=== PATIENT | male | born 1935 | race African-American/Black ===

== ENCOUNTER 2017-01-12 20:17 | Inpatient (IN) | payer OTHER ==
[2017-01-13 01:11] LABS: MCH 24.6 pg (25.7-33.7); MCHC 32.9 g/dl (32.0-35.9); MEAN CELL VOLUME 74.7 fl (80-96); PLATELET COUNT 193 K/MM3 (134-434); RDW 16.5 % (11.9-15.9); WHITE BLOOD COUNT 12.2 K/mm3 (4.0-10.0)
[2017-01-13 02:01] LABS: ALBUMIN 3.3 g/dl (3.4-5.0); BILIRUBIN,TOTAL 0.5 mg/dL (0.2-1.0); CALCIUM 8.6 mg/dL (8.5-10.1); CREATININE 1.2 mg/dL (0.7-1.3); TOT PROT 6.7 g/dl (6.4-8.2)
--- NOTE | 2017-01-13 02:40 | PDOC ---
History of Present Illness - General Chief Complaint: Wound Infection Stated Complaint: FEVER 102/ DIABETIC Time Seen by Provider: 01/12/17 22:05 History Source: Patient, Family Exam Limitations: No Limitations - History of Present Illness Initial Comments: 01/13/17 02:40 81yo Male patient w/ PmHx: HTN, Diabetes presents to ED c/o fever, and infection of left foot. Family states patient experienced fever 103 (rectally) at home, called Darron Cantor and was instructed to go to ED for admission. Patient was recently prescribed Augmentin on Friday, but patient condition slowly deteriorating. Patient denies n/v/d, CP, Abd pain, back pain, rash or any other complaints. Spoke with Dr. Presley who requested patient be admitted to med surg. Timing/Duration: reports: week Severity: Yes: moderate Location: reports: extremities, feet Respiratory Risk Factors: denies: no cause identified, exposure to illness, exposure to allergen, foods, insect bite, insect sting, medications, pollen, soaps, other Modifying Factors: worse with: antihistamine, calamine lotion, prednisone, scratching, topical steriods, other Associated Symptoms: denies: denies symptoms, blisters, change in skin texture, edema, fever, flushing, headache, hives, jaundice, malaise, nasal congestion, numbness, pallor, paresthesia, petechiae, rash, sore throat, swelling/mass/lumps , tingling, other Past History - Travel Traveled outside of the country in the last 30 days: No Close contact w/someone who was outside of country & ill: No - Past Medical History Allergies/Adverse Reactions: Allergies Allergy/AdvReac Type Severity Reaction Status Date / Time No Known Allergies Allergy Verified 01/12/17 20:57 Home Medications: Ambulatory Orders Amlodipine Besylate [Norvasc -] 10 mg PO DAILY 01/12/17 Amox-Tr/K Cl [Augmentin - 875Mg Tablet] 1 tab PO BID 01/12/17 Donepezil HCl 23 mg PO DAILY 01/12/17 Gabapentin [Neurontin -] 300 mg PO BID 01/12/17 Hydrochlorothiazide [Hctz -] 25 mg PO ASDIR 01/12/17 Insulin Lispro Protamin/Lispro [Humalog Mix 75-25 Kwikpen] 27 unit SQ AM Insulin Lispro Protamin/Lispro [Humalog Mix 75-25 Kwikpen] 27 unit SQ HS Memantine HCl [Namenda -] 10 mg PO BID 01/12/17 Metformin HCl 500 mg PO BID 01/12/17 Metoprolol Succinate [Toprol Xl] 100 mg PO DAILY 01/12/17 Mirtazapine [Remeron -] 15 mg PO HS 01/12/17 Quetiapine Fumarate [Seroquel -] 50 mg PO HS 01/12/17 Silver Sulfadiazine 1% Top Cr [Silvadene -] 1 applic TP DAILY 01/12/17 Tamsulosin HCl [Flomax] 0.4 mg PO DAILY 01/12/17 Valsartan [Diovan] 160 mg PO BID 01/12/17 Dementia: Yes (early alzheimers) Diabetes: Yes Disorders: Yes (BPH) HTN: Yes Psychiatric Problems: Yes (depression/anxiety) - Immunization History Immunization Up to Date: Yes - Psycho/Social/Smoking Cessation Hx Suicidal Ideation: No Smoking History: Never smoked Have you smoked in the past 12 months: No Information on smoking cessation initiated: No Hx Alcohol Use: No Drug/Substance Use Hx: No Substance Use Type: None Review of Systems - Review of Systems Able to Perform ROS?: Yes Is the patient limited Romanian proficient: No Constitutional: Yes: Fever. No: Chills Musculoskeletal: Yes: Other (Foot Pain) Integumentary: Yes: Erythema, Other (Second metatarsal infection; discoloration. ) All Other Systems: Reviewed and Negative *Physical Exam - Vital Signs Last Vital Signs Temp Pulse Resp BP Pulse Ox 100.1 F H 67 18 144/64 97 01/12/17 20:54 01/12/17 20:54 01/12/17 20:54 01/12/17 20:54 01/12/17 20:54 - Physical Exam General Appearance: Yes: Nourished, Appropriately Dressed. No: Apparent Distress, Mild Distress, Moderate Distress, Severe Distress Neck: positive: Trachea midline, Supple. negative: Decreased range of motion, Stridor, Lymphadenopathy (R), Lymphadenopathy (L) Respiratory/Chest: positive: Lungs Clear, Normal Breath Sounds. negative: Respiratory Distress, Accessory Muscle Use, Labored Respiration, Rapid RR Cardiovascular: positive: Regular Rhythm, Regular Rate Musculoskeletal: positive: Normal Inspection. negative: CVA Tenderness Extremity: positive: Normal Capillary Refill, Normal Inspection, Normal Range of Motion, Pedal Edema, Erythema, Inflammation (Left foot.) Integumentary: positive: Normal Color, Dry, Warm, Swelling Neurologic: positive: photograph printer II-XII NML intact, Fully Oriented, Alert, Normal Mood/ Affect, Normal Response, Motor Strength 5/5 Heart Score/ECG Review - ECG Impressions Normal ECG: Yes Non-specific ST Elevation: No Ischemic Changes: No Bradycardia: No Torsades pranav Pointes: No WPW: No ED Treatment Course - LABORATORY CBC & Chemistry Diagram: 01/13/17 00:15 01/13/17 00:15 - ADDITIONAL ORDERS Additional order review: Laboratory Results 01/13/17 00:15 Sodium 141 Potassium 3.9 Chloride 100 Carbon Dioxide 30 Anion Gap 11 BUN 25 H Creatinine 1.2 Creat Clearance w eGFR 58.26 Random Glucose 157 H Calcium 8.6 Total Bilirubin 0.5 AST 18 ALT 21 Alkaline Phosphatase 93 Total Protein 6.7 Albumin 3.3 L 01/13/17 00:15 RBC 4.88 MCV 74.7 L MCHC 32.9 RDW 16.5 H MPV 9.0 - RADIOLOGY Radiology Studies Ordered: Category Date Time Status CHEST PA & LAT [RAD] Stat Radiology 01/13/17 02:01 Ordered FOOT-LEFT [RAD] Stat Radiology 01/13/17 00:06 Taken *DC/Admit/Observation/Transfer Diagnosis at time of Disposition: Cellulitis in diabetic foot - Discharge Dispostion Condition at time of disposition: Fair Admit: Yes
[2017-01-13] MEDS ORDERED: PIPERACILLIN/TAZOB 3.375 GM/50 ML PRE-DOCKED IV ONE (02:48)
[2017-01-13] MEDS ORDERED: PIPERACILLIN/TAZOB 3.375 GM 50 ML IVPB ONE (03:14)
[2017-01-13] MEDS: SODIUM CHLORIDE 1,000 ML IV SCH (03:23)
[2017-01-13 11:09] VITALS: BMI 25.2
[2017-01-13] MEDS ORDERED: INSULIN (NOVOLOG) ASPART 100 UNITS/ML 10ML VIAL ONE (12:39)
[2017-01-13] MEDS: INSULIN SLIDING SCALE (NOVOLOG) 1 VIAL SQ SCH ×3 (12:50→22:38)
--- NOTE | 2017-01-13 13:35 | HP ---
DATE OF ADMISSION: HISTORY: He came to the emergency room last night with complaints of infection left foot. Seen by me a few days ago on p.o. antibiotics not relieved. He was having fever at home. PAST MEDICAL HISTORY: He is also known to have hypertension, diabetes. MEDICATIONS: He is on multiple medications at home including amlodipine 5 mg, gabapentin 300 mg once a day, insulin mix Humalog 20 units b.i.d., metformin 500 b.i.d., metoprolol 100 mg daily, Remeron 15 mg nightly, Seroquel 15 mg nightly, Flomax 0.4 mg nightly, losartan 150 mg b.i.d. PHYSICAL EXAMINATION: General: He is awake, alert, and oriented. Complains of pain left lower extremity. Vital Signs: Blood pressure 130/80, pulse 72, respirations 20, temperature 98-100. HEENT: Unremarkable. Neck: Supple. No JVD. Lungs: Clear. Heart: S1, S2 normal. No S3, S4. Abdomen: Soft. Extremities: Left lower extremity minimal edema present throughout the leg and 2nd toe is infected with possible gangrene. LABORATORY REPORTS: WBC 12, hemoglobin 12, hematocrit 36, platelets 193. Blood sugar 170, creatinine 1.2, BUN 25. IMPRESSION: 1. Sepsis. 2. Cellulitis left lower extremity. 3. Diabetes. 4. Wound infection. 5. Hypertension. 6. Arteriosclerotic heart disease. PLAN: Admit to the floor. IV antibiotics. ID consult. Vascular Surgery consult. We will follow. Vibha [id number]
--- NOTE | 2017-01-13 15:25 | CONSULT ---
Consult Consult Specialty:: infectious diseases Referred by:: Reason for Consultation:: cellulitis of the left foot with gangrene - History of Present Illness Chief Complaint: swelling and redness of the left leg History of Present Illness: 81yo Male patient w/ PmHx: HTN, Diabetes presents to ED c/o fever, and infection of left foot. Family states patient experienced fever 103 at home, called Darron Cantor and was instructed to go to ED for admission. Patient was recently prescribed Augmentin on Friday, but patient condition slowly deteriorating. Patient denies n/v/d, CP, Abd pain, back pain, rash or any other complaints. patient has diabetes According to the patient family he had pus coming out of the toe last friday went to see the pcp was prescribed abx for the same currently patient feeling better but according to family the leg has worsened also there is an opening seen on the toe denies any injury to the toe - History Source History Provided By: Patient, Family Member Limitations to Obtaining History: No Limitations - Alcohol/Substance Use Hx Alcohol Use: No - Smoking History Smoking history: Never smoked Have you smoked in the past 12 months: No Home Medications - Allergies Allergies/Adverse Reactions: Allergies Allergy/AdvReac Type Severity Reaction Status Date / Time No Known Allergies Allergy Verified 01/12/17 20:57 - Home Medications Home Medications: Ambulatory Orders Amlodipine Besylate [Norvasc -] 10 mg PO DAILY 01/12/17 Amox-Tr/K Cl [Augmentin - 875Mg Tablet] 1 tab PO BID 01/12/17 Donepezil HCl 23 mg PO DAILY 01/12/17 Gabapentin [Neurontin -] 300 mg PO BID 01/12/17 Hydrochlorothiazide [Hctz -] 25 mg PO ASDIR 01/12/17 Insulin Lispro Protamin/Lispro [Humalog Mix 75-25 Kwikpen] 27 unit SQ AM Insulin Lispro Protamin/Lispro [Humalog Mix 75-25 Kwikpen] 27 unit SQ HS Memantine HCl [Namenda -] 10 mg PO BID 01/12/17 Metformin HCl 500 mg PO BID 01/12/17 Metoprolol Succinate [Toprol Xl] 100 mg PO DAILY 01/12/17 Mirtazapine [Remeron -] 15 mg PO HS 01/12/17 Quetiapine Fumarate [Seroquel -] 50 mg PO HS 01/12/17 Silver Sulfadiazine 1% Top Cr [Silvadene -] 1 applic TP DAILY 01/12/17 Tamsulosin HCl [Flomax] 0.4 mg PO DAILY 01/12/17 Valsartan [Diovan] 160 mg PO BID 01/12/17 Review of Systems - Review of Systems Constitutional: reports: Fever Eyes: reports: No Symptoms HENT: reports: No Symptoms Neck: reports: No Symptoms Cardiovascular: reports: No Symptoms Respiratory: reports: No Symptoms Gastrointestinal: reports: No Symptoms Genitourinary: reports: No Symptoms Musculoskeletal: reports: Extremity Pain, Other Integumentary: reports: Change in Color, Erythema, Wound Neurological: reports: No Symptoms Endocrine: reports: No Symptoms Hematology/Lymphatic: reports: No Symptoms Psychiatric: reports: No Symptoms Physical Exam Vital Signs: Vital Signs Temperature 98.5 F 01/13/17 10:30 Pulse Rate 60 01/13/17 10:30 Respiratory Rate 18 01/13/17 10:30 Blood Pressure 143/71 01/13/17 10:30 O2 Sat by Pulse Oximetry (%) 97 01/13/17 10:30 Constitutional: Yes: Well Nourished, No Distress, Calm Eyes: Yes: Conjunctiva Clear HENT: Yes: Atraumatic, Normocephalic Neck: Yes: Supple, Trachea Midline Cardiovascular: Yes: Regular Rate and Rhythm Respiratory: Yes: Regular, CTA Bilaterally Gastrointestinal: Yes: Normal Bowel Sounds, Soft Musculoskeletal: Yes: Other Extremities: Yes: Erythema (left fott and leg with gangrene of the leg) Edema: LLE: 1+ Peripheral Pulses WNL: Yes Integumentary: Yes: Erythema, Skin Tear (on the left 3rd toe) Wound/Incision: Yes: Open to air Neurological: Yes: Alert, Oriented Psychiatric: Yes: Alert, Oriented Imaging - Results Chest X-ray: Report Reviewed, Image Reviewed X-ray: Report Reviewed, Image Reviewed Assessment/Plan after seeing the patient i can see that the patient probably has gangrene of the toe and also there is foul smell to the wound looks like he also does have osteo of the toe cellulitis of the left foot gangrene of the 3rd left toe r/o osteo dm plan will start patient on vanco and unasyn await for mri results if patient drains anything to send for culture rest as per primary
[2017-01-13] MEDS ORDERED: TAZOB IVPB ONE (16:26)
[2017-01-13] MEDS ORDERED: PIPERACILLIN IVPB ONE (16:26)
[2017-01-13] MEDS: INSULIN (NOVOLOG MIX 70/30) 100 UNITS/ML MDV SQ SCH (16:48)
[2017-01-13] MEDS: AMPICILLIN NA/SULBACTAM NA 3 GM in SODIUM CHLORIDE 100 ML IVPB SCH (17:11)
[2017-01-13] MEDS: VANCOMYCIN 1,250 MG in DEXTROSE 5%-WATER - 250 ML IVPB SCH (17:12)
--- NOTE | 2017-01-13 19:52 | CONSULT ---
Consult - Alcohol/Substance Use Hx Alcohol Use: No - Smoking History Smoking history: Never smoked Have you smoked in the past 12 months: No Home Medications - Allergies Allergies/Adverse Reactions: Allergies Allergy/AdvReac Type Severity Reaction Status Date / Time No Known Allergies Allergy Verified 01/12/17 20:57 - Home Medications Home Medications: Ambulatory Orders Amlodipine Besylate [Norvasc -] 10 mg PO DAILY 01/12/17 Amox-Tr/K Cl [Augmentin - 875Mg Tablet] 1 tab PO BID 01/12/17 Donepezil HCl 23 mg PO DAILY 01/12/17 Gabapentin [Neurontin -] 300 mg PO BID 01/12/17 Hydrochlorothiazide [Hctz -] 25 mg PO ASDIR 01/12/17 Insulin Lispro Protamin/Lispro [Humalog Mix 75-25 Kwikpen] 27 unit SQ AM Insulin Lispro Protamin/Lispro [Humalog Mix 75-25 Kwikpen] 27 unit SQ HS Memantine HCl [Namenda -] 10 mg PO BID 01/12/17 Metformin HCl 500 mg PO BID 01/12/17 Metoprolol Succinate [Toprol Xl] 100 mg PO DAILY 01/12/17 Mirtazapine [Remeron -] 15 mg PO HS 01/12/17 Quetiapine Fumarate [Seroquel -] 50 mg PO HS 01/12/17 Silver Sulfadiazine 1% Top Cr [Silvadene -] 1 applic TP DAILY 01/12/17 Tamsulosin HCl [Flomax] 0.4 mg PO DAILY 01/12/17 Valsartan [Diovan] 160 mg PO BID 01/12/17 Physical Exam Vital Signs: Vital Signs Temperature 99.8 F H 01/13/17 17:25 Pulse Rate 67 01/13/17 17:25 Respiratory Rate 18 01/13/17 17:25 Blood Pressure 160/60 01/13/17 17:25 O2 Sat by Pulse Oximetry (%) 97 01/13/17 10:30 Assessment/Plan Vascular Surgery 81yo Male patient w/ PmHx: HTN, Diabetes presents to ED c/o fever, and infection of left foot. Family states patient experienced fever 103 (rectally) at home, called Darron Cantor and was instructed to go to ED for admission. Patient was recently prescribed Augmentin on Friday, but patient condition slowly deteriorating. Patient denies n/v/d, CP, Abd pain, back pain, rash or any other complaints. Timing/Duration: reports: week Severity: Yes: moderate Location: reports: extremities, feet Respiratory Risk Factors: denies: no cause identified, exposure to illness, exposure to allergen, foods, insect bite, insect sting, medications, pollen, soaps, other Modifying Factors: worse with: antihistamine, calamine lotion, prednisone, scratching, topical steriods, other Associated Symptoms: denies: denies symptoms, blisters, change in skin texture, edema, fever, flushing, headache, hives, jaundice, malaise, nasal congestion, numbness, pallor, paresthesia, petechiae, rash, sore throat, swelling/mass/lumps , tingling, other Past History - Travel Traveled outside of the country in the last 30 days: No Close contact w/someone who was outside of country & ill: No - Past Medical History Allergies/Adverse Reactions: Allergies Allergy/AdvReac Type Severity Reaction Status Date / Time No Known Allergies Allergy Verified 01/12/17 20:57 Home Medications: Ambulatory Orders Amlodipine Besylate [Norvasc -] 10 mg PO DAILY 01/12/17 Amox-Tr/K Cl [Augmentin - 875Mg Tablet] 1 tab PO BID 01/12/17 Donepezil HCl 23 mg PO DAILY 01/12/17 Gabapentin [Neurontin -] 300 mg PO BID 01/12/17 Hydrochlorothiazide [Hctz -] 25 mg PO ASDIR 01/12/17 Insulin Lispro Protamin/Lispro [Humalog Mix 75-25 Kwikpen] 27 unit SQ AM Insulin Lispro Protamin/Lispro [Humalog Mix 75-25 Kwikpen] 27 unit SQ HS Memantine HCl [Namenda -] 10 mg PO BID 01/12/17 Metformin HCl 500 mg PO BID 01/12/17 Metoprolol Succinate [Toprol Xl] 100 mg PO DAILY 01/12/17 Mirtazapine [Remeron -] 15 mg PO HS 01/12/17 Quetiapine Fumarate [Seroquel -] 50 mg PO HS 01/12/17 Silver Sulfadiazine 1% Top Cr [Silvadene -] 1 applic TP DAILY 01/12/17 Tamsulosin HCl [Flomax] 0.4 mg PO DAILY 01/12/17 Valsartan [Diovan] 160 mg PO BID 01/12/17 PE Head - NC/aT Lung - CTA Heart - RRR abd - soft,nt,nd ext - left third toe gangrene Palpable PT pulse. Palpable popliteal pulse. A/P Left third toe gangrene. MRI foot pending -- very suspicious for osteo Will order CTA to look at runoff into foot. No DP pulse present. Cont to hydrate. Cr is 1.2 -- ok for CTA Will follow Jey Hernandez dO
[2017-01-13] MEDS: MEMANTINE HCL 10 MG TABLET (FP) PO SCH (22:37)
[2017-01-13] MEDS: MIRTAZAPINE 15 MG TABLET (FP) PO SCH (22:38)
[2017-01-13] MEDS: GABAPENTIN 300 MG CAPSULE (FP) PO SCH (22:38)
[2017-01-13] MEDS: QUEtiapine FUMARATE 25 MG TABLET (FP) PO SCH (22:39)
[2017-01-14] MEDS: AMPICILLIN NA/SULBACTAM NA 3 GM in SODIUM CHLORIDE 100 ML IVPB SCH ×3 (01:34→18:01)
[2017-01-14] MEDS: SODIUM CHLORIDE 1,000 ML IV SCH ×2 (06:38→15:05)
[2017-01-14] MEDS: INSULIN (NOVOLOG MIX 70/30) 100 UNITS/ML MDV SQ SCH ×2 (06:39→17:04)
[2017-01-14] MEDS: INSULIN SLIDING SCALE (NOVOLOG) 1 VIAL SQ SCH ×4 (06:39→22:45)
[2017-01-14] MEDS ORDERED: PT OWN MED DRAWER 7, Y5N ONE (07:07)
--- NOTE | 2017-01-14 09:19 | PN ---
Progress Note, Physician Chief Complaint: Confused History of Present Illness: Admitted with cellulites Lt foot with gangrene 3rd toe - Current Medication List Current Medications: Active Medications Acetaminophen (Tylenol -) 650 mg PO Q4H PRN PRN Reason: PAIN Amlodipine Besylate (Norvasc -) 10 mg PO DAILY [facility] Donepezil HCl (Aricept -) 5 mg PO DAILY [facility] Gabapentin (Neurontin -) 300 mg PO BID [facility] Last Admin: 01/13/17 22:38 Dose: 300 mg Sodium Chloride (Normal Saline -) 1,000 mls @ 125 mls/hr IV ASDIR [facility] Last Admin: 01/14/17 06:38 Dose: 125 mls/hr Ampicillin Sodium/Sulbactam (Sodium 3 gm/ Sodium Chloride) 100 mls @ 200 mls/ hr IVPB Q8H-IV [facility] Last Admin: 01/14/17 01:34 Dose: 200 mls/hr Vancomycin HCl 1,250 mg/ (Dextrose) 250 mls @ 125 mls/hr IVPB DAILY@1600 [facility] PRN Reason: Protocol Last Admin: 01/13/17 17:12 Dose: 125 mls/hr Insulin Aspart (Novolog Vial Sliding Scale -) 1 vial SQ ACHS [facility] PRN Reason: Protocol Last Admin: 01/14/17 06:39 Dose: Not Given Insulin Aspart (Novolog Mix 70/30 Vial) 25 units SQ BIDAC [facility] Last Admin: 01/14/17 06:39 Dose: 25 units Memantine (Namenda -) 10 mg PO BID [facility] Last Admin: 01/13/17 22:37 Dose: 10 mg Metoprolol Succinate (Toprol Xl -) 100 mg PO DAILY [facility] Mirtazapine (Remeron -) 15 mg PO HS [facility] Last Admin: 01/13/17 22:38 Dose: 15 mg Quetiapine Fumarate (Seroquel -) 50 mg PO HS [facility] Last Admin: 01/13/17 22:39 Dose: 50 mg Tamsulosin HCl (Flomax -) 0.4 mg PO DAILY@0830 [facility] - Objective Vital Signs: Vital Signs Temperature 99.5 F 01/13/17 22:00 Pulse Rate 87 01/13/17 22:00 Respiratory Rate 18 01/13/17 22:00 Blood Pressure 158/96 01/13/17 22:00 O2 Sat by Pulse Oximetry (%) 98 01/13/17 21:00 Constitutional: Yes: Mild Distress Eyes: Yes: WNL HENT: Yes: WNL Neck: Yes: WNL Cardiovascular: Yes: WNL Respiratory: Yes: WNL Gastrointestinal: Yes: WNL ...Rectal Exam: Yes: Deferred Genitourinary: Yes: WNL Extremities: Yes: Other (Lt foot cellulitis better) Edema: No Peripheral Pulses: Left Femoral: 3+, Right Femoral: 3+ Neurological: Yes: Confusion Assessment/Plan Dr Palmer vascular surgery consult appreciated and jemima Spence ID consult appreciated CT angio done result pending
[2017-01-14] MEDS: TAMSULOSIN HCL 0.4 MG CAP.ER.24H (FP) PO SCH (09:20)
[2017-01-14] MEDS: DONEPEZIL HCL 5 MG TABLET (FP) PO SCH (09:20)
[2017-01-14] MEDS: amLODIPine BESYLATE 10 MG TABLET (FP) PO SCH (09:20)
[2017-01-14] MEDS: METOPROLOL SUCCINATE 100 MG TAB.SR.24H (FP) PO SCH (09:20)
[2017-01-14] MEDS: GABAPENTIN 300 MG CAPSULE (FP) PO SCH ×2 (09:20→22:45)
[2017-01-14] MEDS: MEMANTINE HCL 10 MG TABLET (FP) PO SCH ×2 (09:20→22:42)
[2017-01-14] MEDS ORDERED: QUEtiapine FUMARATE 25 MG TABLET (FP) PO SCH (10:00)
--- NOTE | 2017-01-14 14:09 | PN ---
Progress Note, Physician History of Present Illness: patient doing better swelling decreasing erythema better in room - Current Medication List Current Medications: Active Medications Acetaminophen (Tylenol -) 650 mg PO Q4H PRN PRN Reason: PAIN Amlodipine Besylate (Norvasc -) 10 mg PO DAILY [facility] Last Admin: 01/14/17 09:20 Dose: 10 mg Donepezil HCl (Aricept -) 5 mg PO DAILY [facility] Last Admin: 01/14/17 09:20 Dose: 5 mg Gabapentin (Neurontin -) 300 mg PO BID [facility] Last Admin: 01/14/17 09:20 Dose: 300 mg Sodium Chloride (Normal Saline -) 1,000 mls @ 125 mls/hr IV ASDIR [facility] Last Admin: 01/14/17 06:38 Dose: 125 mls/hr Ampicillin Sodium/Sulbactam (Sodium 3 gm/ Sodium Chloride) 100 mls @ 200 mls/ hr IVPB Q8H-IV [facility] Last Admin: 01/14/17 09:21 Dose: 200 mls/hr Vancomycin HCl 1,250 mg/ (Dextrose) 250 mls @ 125 mls/hr IVPB DAILY@1600 [facility] PRN Reason: Protocol Last Admin: 01/13/17 17:12 Dose: 125 mls/hr Insulin Aspart (Novolog Vial Sliding Scale -) 1 vial SQ ACHS [facility] PRN Reason: Protocol Last Admin: 01/14/17 11:01 Dose: Not Given Insulin Aspart (Novolog Mix 70/30 Vial) 25 units SQ BIDAC [facility] Last Admin: 01/14/17 06:39 Dose: 25 units Memantine (Namenda -) 10 mg PO BID [facility] Last Admin: 01/14/17 09:20 Dose: 10 mg Metoprolol Succinate (Toprol Xl -) 100 mg PO DAILY [facility] Last Admin: 01/14/17 09:20 Dose: 100 mg Mirtazapine (Remeron -) 15 mg PO HS [facility] Last Admin: 01/13/17 22:38 Dose: 15 mg Quetiapine Fumarate (Seroquel -) 50 mg PO HS [facility] Last Admin: 01/13/17 22:39 Dose: 50 mg Tamsulosin HCl (Flomax -) 0.4 mg PO DAILY@0830 [facility] Last Admin: 01/14/17 09:20 Dose: 0.4 mg - Objective Vital Signs: Vital Signs Temperature 99 F 01/14/17 09:30 Pulse Rate 80 01/14/17 09:30 Respiratory Rate 18 01/14/17 09:30 Blood Pressure 138/62 01/14/17 09:30 O2 Sat by Pulse Oximetry (%) 98 01/13/17 21:00 Constitutional: Yes: No Distress, Calm Cardiovascular: Yes: Regular Rate and Rhythm Respiratory: Yes: Regular, CTA Bilaterally Gastrointestinal: Yes: Normal Bowel Sounds, Soft Musculoskeletal: Yes: Other Extremities: Yes: Other Integumentary: Yes: Erythema (improving), Other (left 3rd toe gangrene) Wound/Incision: Yes: Clean/Dry, Open to air Neurological: Yes: Alert, Oriented Psychiatric: Yes: Alert - ....Imaging Cat Scan: Report Reviewed, Image Reviewed Assessment/Plan after seeing the patient i can see that the patient probably has gangrene of the toe and also there is foul smell to the wound looks like he also does have osteo of the toe cellulitis of the left foot gangrene of the 3rd left toe r/o osteo dm plan continue abx await for mri of the leg vascular note noted
[2017-01-14] MEDS: VANCOMYCIN 1,250 MG in DEXTROSE 5%-WATER - 250 ML IVPB SCH (15:08)
[2017-01-14] MEDS ORDERED: INSULIN (NOVOLOG) ASPART 100 UNITS/ML 10ML VIAL ONE (16:20)
--- NOTE | 2017-01-14 17:41 | EKG ---
Test Reason : Blood Pressure : / mmHG Vent. Rate : 057 BPM Atrial Rate : 057 BPM P-R Int : 196 ms QRS Dur : 086 ms QT Int : 444 ms P-R-T Axes : 030 -14 075 degrees QTc Int : 432 ms SINUS BRADYCARDIA OTHERWISE NORMAL ECG WHEN COMPARED WITH ECG OF 20-JUL-2003 14:33, T WAVE VARIATION Confirmed by SONIA ANDREW MD ([id number]) on 01/14/2017 5:41:42 PM Referred By: Confirmed By:SONIA ANDREW MD
[2017-01-14] MEDS: ACETAMINOPHEN 325 MG TABLET (FP) PO PRN (17:59)
[2017-01-14] MEDS: MIRTAZAPINE 15 MG TABLET (FP) PO SCH (22:45)
[2017-01-14] MEDS: QUEtiapine FUMARATE 25 MG TABLET (FP) PO SCH (22:46)
[2017-01-15] MEDS ORDERED: PT OWN MED DRAWER 7, Y5N ONE ×5 (01:08→21:28)
[2017-01-15] MEDS: AMPICILLIN NA/SULBACTAM NA 3 GM in SODIUM CHLORIDE 100 ML IVPB SCH ×3 (01:16→18:22)
[2017-01-15] MEDS: SODIUM CHLORIDE 1,000 ML IV SCH (05:38)
[2017-01-15] MEDS: INSULIN SLIDING SCALE (NOVOLOG) 1 VIAL SQ SCH ×4 (06:41→22:49)
[2017-01-15] MEDS: INSULIN (NOVOLOG MIX 70/30) 100 UNITS/ML MDV SQ SCH ×2 (06:41→17:51)
[2017-01-15] MEDS: ACETAMINOPHEN 325 MG TABLET (FP) PO PRN ×2 (06:42→22:43)
[2017-01-15] MEDS ORDERED: INSULIN DETEMIR 100 UNITS/ML MDV SQ ONE (07:12)
[2017-01-15] MEDS: TAMSULOSIN HCL 0.4 MG CAP.ER.24H (FP) PO SCH (08:29)
--- NOTE | 2017-01-15 08:59 | PN ---
Progress Note, Physician Chief Complaint: Feels better,fully awake and talking History of Present Illness: CT angiogram generalised vascular atheroselerosis - Current Medication List Current Medications: Active Medications Acetaminophen (Tylenol -) 650 mg PO Q4H PRN PRN Reason: PAIN Last Admin: 01/15/17 06:42 Dose: 650 mg Amlodipine Besylate (Norvasc -) 10 mg PO DAILY [facility] Last Admin: 01/14/17 09:20 Dose: 10 mg Brimonidine Tartrate (Alphagan P 0.1% -) 1 drop OU BID [facility] Docusate Sodium (Colace -) 100 mg PO BID [facility] Donepezil HCl (Aricept -) 5 mg PO DAILY [facility] Last Admin: 01/14/17 09:20 Dose: 5 mg Dorzolamide HCl (Trusopt 2%) 1 drop OU BID [facility] Gabapentin (Neurontin -) 300 mg PO BID [facility] Last Admin: 01/14/17 22:45 Dose: 300 mg Sodium Chloride (Normal Saline -) 1,000 mls @ 125 mls/hr IV ASDIR [facility] Last Admin: 01/15/17 05:38 Dose: 125 mls/hr Ampicillin Sodium/Sulbactam (Sodium 3 gm/ Sodium Chloride) 100 mls @ 200 mls/ hr IVPB Q8H-IV [facility] Last Admin: 01/15/17 01:16 Dose: 200 mls/hr Vancomycin HCl 1,250 mg/ (Dextrose) 250 mls @ 125 mls/hr IVPB DAILY@1600 [facility] PRN Reason: Protocol Last Admin: 01/14/17 15:08 Dose: 125 mls/hr Insulin Aspart (Novolog Vial Sliding Scale -) 1 vial SQ ACHS [facility] PRN Reason: Protocol Last Admin: 01/15/17 06:41 Dose: Not Given Insulin Aspart (Novolog Mix 70/30 Vial) 25 units SQ BIDAC [facility] Last Admin: 01/15/17 06:41 Dose: 25 units Latanoprost (Xalatan 0.005% Eye Drops -) 1 drop OU HS [facility] Memantine (Namenda -) 10 mg PO BID [facility] Last Admin: 01/14/17 22:42 Dose: 10 mg Metoprolol Succinate (Toprol Xl -) 100 mg PO DAILY [facility] Last Admin: 01/14/17 09:20 Dose: 100 mg Mirtazapine (Remeron -) 15 mg PO HS [facility] Last Admin: 01/14/17 22:45 Dose: 15 mg Quetiapine Fumarate (Seroquel -) 50 mg PO [facility] Last Admin: 01/14/17 22:46 Dose: 50 mg Tamsulosin HCl (Flomax -) 0.4 mg PO DAILY@0830 [facility] Last Admin: 01/15/17 08:29 Dose: 0.4 mg Timolol Maleate (Timoptic 0.5%) 1 drop OU BID [facility] - Objective Vital Signs: Vital Signs Temperature 100.3 F H 01/15/17 06:00 Pulse Rate 62 01/15/17 06:00 Respiratory Rate 20 01/15/17 06:00 Blood Pressure 145/67 01/15/17 06:00 O2 Sat by Pulse Oximetry (%) 97 01/14/17 21:00 Constitutional: Yes: No Distress Eyes: Yes: WNL HENT: Yes: WNL Neck: Yes: WNL Cardiovascular: Yes: WNL Respiratory: Yes: WNL Gastrointestinal: Yes: WNL Genitourinary: Yes: WNL Extremities: Yes: Other (Lt 3rd toe gangrenous) Integumentary: Yes: WNL - ....Imaging Cat Scan: Report Reviewed Assessment/Plan DC IV fluids Will discuss with Dr Hernandez
[2017-01-15] MEDS: BRIMONIDINE TARTRATE 0.1% OPHTHALMIC 5 ML BOTTLE OU SCH ×2 (09:34→22:37)
[2017-01-15] MEDS: DONEPEZIL HCL 5 MG TABLET (FP) PO SCH (09:35)
[2017-01-15] MEDS: DOCUSATE SODIUM 100 MG CAPSULE (FP) PO SCH ×2 (09:36→22:37)
[2017-01-15] MEDS: MEMANTINE HCL 10 MG TABLET (FP) PO SCH ×2 (09:36→22:37)
[2017-01-15] MEDS: GABAPENTIN 300 MG CAPSULE (FP) PO SCH ×2 (09:36→22:38)
[2017-01-15] MEDS: amLODIPine BESYLATE 10 MG TABLET (FP) PO SCH (09:36)
[2017-01-15] MEDS: TIMOLOL 0.5% OPHTHALMIC SOL 5 ML BOTTLE OU SCH ×2 (09:37→22:52)
[2017-01-15] MEDS: METOPROLOL SUCCINATE 100 MG TAB.SR.24H (FP) PO SCH (09:38)
[2017-01-15] MEDS: DORZOLAMIDE 2% HCL OPHTHALMIC SOLUTION 10 ML BOTTLE OU SCH ×2 (09:39→22:52)
[2017-01-15] MEDS: HEPARIN NA (PORCINE) 5,000 UNITS/ML 1ML VIAL SQ SCH ×2 (09:45→22:45)
--- NOTE | 2017-01-15 10:30 | PN ---
Progress Note (short form) - Note Progress Note: Vascular Surgery Pt's CTA reviewed. 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 Mainly below the knee. Will do angoigram, angioplasty afshinMelania Hernandez DO
[2017-01-15 11:29] LABS: CALCIUM 7.8 mg/dL (8.5-10.1); CREATININE 1.1 mg/dL (0.7-1.3)
--- NOTE | 2017-01-15 11:38 | SPA.PREOP ---
- PRE-OP NOTE Dx: left third toe gangrene Planned Procedure: left lower leg angiogram Surgeon: Dr. Hernandez Last Vital Signs Temp Pulse Resp BP Pulse Ox 98.1 F 68 20 143/62 97 01/15/17 09:46 01/15/17 09:46 01/15/17 09:46 01/15/17 09:46 01/14/17 21:00 Lab Results WBC 12.2 K/mm3 (4.0-10.0) H 01/13/17 00:15 RBC 4.88 M/mm3 (4.00-5.60) 01/13/17 00:15 Hgb 12.0 GM/dL (11.7-16.9) 01/13/17 00:15 Hct 36.5 % (35.4-49) 01/13/17 00:15 MCV 74.7 fl (80-96) L 01/13/17 00:15 MCHC 32.9 g/dl (32.0-35.9) 01/13/17 00:15 RDW 16.5 % (11.9-15.9) H 01/13/17 00:15 Plt Count 193 K/MM3 (134-434) 01/13/17 00:15 Sodium 142 mmol/L (136-145) 01/15/17 10:45 Potassium 3.7 mmol/L (3.5-5.1) 01/15/17 10:45 Chloride 106 mmol/L (98-107) 01/15/17 10:45 Carbon Dioxide 27 mmol/L (21-32) 01/15/17 10:45 Anion Gap 9 (8-16) 01/15/17 10:45 BUN 18 mg/dL (7-18) D 01/15/17 10:45 Creatinine 1.1 mg/dL (0.7-1.3) 01/15/17 10:45 Random Glucose 216 mg/dL (74-106) H D 01/15/17 10:45 Calcium 7.8 mg/dL (8.5-10.1) L 01/15/17 10:45 Laboratory Tests 01/13/17 00:15 WBC 12.2 H RBC 4.88 Hgb 12.0 Hct 36.5 MCV 74.7 L MCHC 32.9 RDW 16.5 H Plt Count 193 MPV 9.0 - IMAGING Chest X-ray: Image Reviewed (large heart, no acute pathology) EKG: Pending (sinus vicenta) - ASSESSMENT/PLAN 1. Make NPO after midnight except po meds 2. GI/DVT PPX 3. Medical optimization / clearance Visit type - Case Type Case Type: ED Admission - Emergency Emergency Visit: Yes ED Registration Date: 01/13/17 Care time: The patient presented to the Emergency Department on the above date and was hospitalized for further evaluation of their emergent condition. - New patient This patient is new to me today: Yes Date on this admission: 01/27/17 - Critical Care Critical Care patient: No
[2017-01-15 12:51] LABS: INR 1.21 (0.82-1.09); PROTHROMBIN TIME (PATIENT) 13.4 SEC (9.98-11.88)
--- NOTE | 2017-01-15 16:07 | PN ---
Progress Note, Physician History of Present Illness: patient doing well no issues - Current Medication List Current Medications: Active Medications Acetaminophen (Tylenol -) 650 mg PO Q4H PRN PRN Reason: PAIN Last Admin: 01/15/17 06:42 Dose: 650 mg Amlodipine Besylate (Norvasc -) 10 mg PO DAILY [facility] Last Admin: 01/15/17 09:36 Dose: 10 mg Brimonidine Tartrate (Alphagan P 0.1% -) 1 drop OU BID [facility] Last Admin: 01/15/17 09:34 Dose: 1 drp Docusate Sodium (Colace -) 100 mg PO BID [facility] Last Admin: 01/15/17 09:36 Dose: 100 mg Donepezil HCl (Aricept -) 5 mg PO DAILY [facility] Last Admin: 01/15/17 09:35 Dose: 5 mg Dorzolamide HCl (Trusopt 2%) 1 drop OU BID [facility] Last Admin: 01/15/17 09:39 Dose: 1 drop Gabapentin (Neurontin -) 300 mg PO BID [facility] Last Admin: 01/15/17 09:36 Dose: 300 mg Heparin Sodium (Porcine) (Heparin -) 5,000 unit SQ BID [facility] Last Admin: 01/15/17 09:45 Dose: 5,000 unit Ampicillin Sodium/Sulbactam (Sodium 3 gm/ Sodium Chloride) 100 mls @ 200 mls/ hr IVPB Q8H-IV [facility] Last Admin: 01/15/17 09:40 Dose: 200 mls/hr Vancomycin HCl 1,250 mg/ (Dextrose) 250 mls @ 125 mls/hr IVPB DAILY@1600 [facility] PRN Reason: Protocol Last Admin: 01/14/17 15:08 Dose: 125 mls/hr Insulin Aspart (Novolog Vial Sliding Scale -) 1 vial SQ ACHS [facility] PRN Reason: Protocol Last Admin: 01/15/17 12:18 Dose: 5 units Insulin Aspart (Novolog Mix 70/30 Vial) 25 units SQ BIDAC [facility] Last Admin: 01/15/17 06:41 Dose: 25 units Latanoprost (Xalatan 0.005% Eye Drops -) 1 drop OU HS [facility] Memantine (Namenda -) 10 mg PO BID [facility] Last Admin: 01/15/17 09:36 Dose: 10 mg Metoprolol Succinate (Toprol Xl -) 100 mg PO DAILY [facility] Last Admin: 01/15/17 09:38 Dose: 100 mg Mirtazapine (Remeron -) 15 mg PO [facility] Last Admin: 01/14/17 22:45 Dose: 15 mg Quetiapine Fumarate (Seroquel -) 50 mg PO [facility] Last Admin: 01/14/17 22:46 Dose: 50 mg Tamsulosin HCl (Flomax -) 0.4 mg PO DAILY@0830 [facility] Last Admin: 01/15/17 08:29 Dose: 0.4 mg Timolol Maleate (Timoptic 0.5%) 1 drop OU BID [facility] Last Admin: 01/15/17 09:37 Dose: 1 drop - Objective Vital Signs: Vital Signs Temperature 98 F 01/15/17 14:26 Pulse Rate 59 L 01/15/17 14:26 Respiratory Rate 17 01/15/17 14:26 Blood Pressure 141/62 01/15/17 14:26 O2 Sat by Pulse Oximetry (%) 97 01/15/17 10:00 Constitutional: Yes: No Distress, Calm Cardiovascular: Yes: Regular Rate and Rhythm Respiratory: Yes: Regular, CTA Bilaterally Gastrointestinal: Yes: Normal Bowel Sounds, Soft Musculoskeletal: Yes: Other Extremities: Yes: Other Wound/Incision: Yes: Open to air, Other Neurological: Yes: Alert, Oriented Psychiatric: Yes: Alert Labs: CBC, BMP 01/15/17 10:45 INR, PTT INR 1.21 (0.82-1.09) H 01/15/17 12:20 Assessment/Plan after seeing the patient i can see that the patient probably has gangrene of the toe and also there is foul smell to the wound looks like he also does have osteo of the toe cellulitis of the left foot gangrene of the 3rd left toe r/o osteo dm patient for angiogram tomorrow mri could not be done because patient cannot keep his leg still will do bone scan on friday as he is getting a procedure tomorrow plan continue abx await for angiogram continue as per vascular
[2017-01-15] MEDS: VANCOMYCIN 1,250 MG in DEXTROSE 5%-WATER - 250 ML IVPB SCH (16:17)
[2017-01-15] MEDS ORDERED: LATANOPROST 0.005% OPHTH SOLN 2.5ML BOTTLE OU SCH (22:00)
[2017-01-15] MEDS: MIRTAZAPINE 15 MG TABLET (FP) PO SCH (22:37)
[2017-01-15] MEDS: QUEtiapine FUMARATE 25 MG TABLET (FP) PO SCH (22:42)
[2017-01-16] MEDS: AMPICILLIN NA/SULBACTAM NA 3 GM in SODIUM CHLORIDE 100 ML IVPB SCH ×3 (03:00→17:51)
[2017-01-16] MEDS ORDERED: PT OWN MED DRAWER 7, Y5N ONE ×4 (03:07→22:08)
[2017-01-16] MEDS ORDERED: DEXTROSE 5%-0.45% SALINE 1,000 ML IV SCH ×2 (05:45→13:59)
[2017-01-16] MEDS: INSULIN (NOVOLOG MIX 70/30) 100 UNITS/ML MDV SQ SCH ×2 (06:00→17:22)
[2017-01-16] MEDS: INSULIN SLIDING SCALE (NOVOLOG) 1 VIAL SQ SCH ×4 (06:01→22:29)
[2017-01-16 07:54] LABS: MCH 24.7 pg (25.7-33.7); MCHC 32.9 g/dl (32.0-35.9); MEAN CELL VOLUME 75.1 fl (80-96); MEAN PLT VOLUME 8.9 fl (7.5-11.1); PLATELET COUNT 217 K/MM3 (134-434); RDW 16.3 % (11.9-15.9); WHITE BLOOD COUNT 11.6 K/mm3 (4.0-10.0)
[2017-01-16 09:05] LABS: ALBUMIN 2.7 g/dl (3.4-5.0); ALK PHOS 83 U/L (45-117); ANION GAP 13 (8-16); BILIRUBIN,TOTAL 0.5 mg/dL (0.2-1.0); CALCIUM 8.1 mg/dL (8.5-10.1); CO2 26 mmol/L (21-32); CREATININE 0.9 mg/dL (0.7-1.3); GLUCOSE,RANDOM 82 mg/dL (74-106); SGOT/AST 27 U/L (15-37); SGPT/ALT 40 U/L (12-78); TOT PROT 6.3 g/dl (6.4-8.2)
--- NOTE | 2017-01-16 09:06 | PN ---
Progress Note, Physician Chief Complaint: Feels OK History of Present Illness: Scheduled for angioplasty LLE - Current Medication List Current Medications: Active Medications Acetaminophen (Tylenol -) 650 mg PO Q4H PRN PRN Reason: PAIN Last Admin: 01/15/17 22:43 Dose: 650 mg Amlodipine Besylate (Norvasc -) 10 mg PO DAILY [facility] Last Admin: 01/15/17 09:36 Dose: 10 mg Brimonidine Tartrate (Alphagan P 0.1% -) 1 drop OU BID [facility] Last Admin: 01/15/17 22:37 Dose: 1 drp Docusate Sodium (Colace -) 100 mg PO BID [facility] Last Admin: 01/15/17 22:37 Dose: 100 mg Donepezil HCl (Aricept -) 5 mg PO DAILY [facility] Last Admin: 01/15/17 09:35 Dose: 5 mg Dorzolamide HCl (Trusopt 2%) 1 drop OU BID [facility] Last Admin: 01/15/17 22:52 Dose: 1 drop Gabapentin (Neurontin -) 300 mg PO BID [facility] Last Admin: 01/15/17 22:38 Dose: 300 mg Heparin Sodium (Porcine) (Heparin -) 5,000 unit SQ BID [facility] Last Admin: 01/15/17 22:45 Dose: 5,000 unit Ampicillin Sodium/Sulbactam (Sodium 3 gm/ Sodium Chloride) 100 mls @ 200 mls/ hr IVPB Q8H-IV [facility] Last Admin: 01/16/17 03:00 Dose: 200 mls/hr Vancomycin HCl 1,250 mg/ (Dextrose) 250 mls @ 125 mls/hr IVPB DAILY@1600 [facility] PRN Reason: Protocol Last Admin: 01/15/17 16:17 Dose: 125 mls/hr Dextrose/Sodium Chloride (D5-1/2ns -) 1,000 mls @ 70 mls/hr IV ASDIR [facility] Last Admin: 01/16/17 05:41 Dose: 70 mls/hr Insulin Aspart (Novolog Vial Sliding Scale -) 1 vial SQ ACHS [facility] PRN Reason: Protocol Last Admin: 01/16/17 06:01 Dose: Not Given Insulin Aspart (Novolog Mix 70/30 Vial) 25 units SQ BIDAC [facility] Last Admin: 01/16/17 06:00 Dose: Not Given Latanoprost (Xalatan 0.005% Eye Drops -) 1 drop OU [facility] Last Admin: 01/15/17 22:51 Dose: 1 drop Memantine (Namenda -) 10 mg PO BID [facility] Last Admin: 01/15/17 22:37 Dose: 10 mg Metoprolol Succinate (Toprol Xl -) 100 mg PO DAILY [facility] Last Admin: 01/15/17 09:38 Dose: 100 mg Mirtazapine (Remeron -) 15 mg PO [facility] Last Admin: 01/15/17 22:37 Dose: 15 mg Quetiapine Fumarate (Seroquel -) 50 mg PO [facility] Last Admin: 01/15/17 22:42 Dose: 50 mg Tamsulosin HCl (Flomax -) 0.4 mg PO DAILY@0830 [facility] Last Admin: 01/15/17 08:29 Dose: 0.4 mg Timolol Maleate (Timoptic 0.5%) 1 drop OU BID [facility] Last Admin: 01/15/17 22:52 Dose: 1 drop - Objective Vital Signs: Vital Signs Temperature 99.9 F H 01/16/17 06:41 Pulse Rate 60 01/16/17 06:41 Respiratory Rate 20 01/16/17 06:41 Blood Pressure 145/60 01/16/17 06:41 O2 Sat by Pulse Oximetry (%) 97 01/15/17 22:00 Constitutional: Yes: No Distress Eyes: Yes: WNL HENT: Yes: WNL Neck: Yes: WNL Cardiovascular: Yes: WNL Respiratory: Yes: WNL Gastrointestinal: Yes: WNL ...Rectal Exam: Yes: Deferred Genitourinary: Yes: WNL Breast(s): Yes: WNL Extremities: Yes: Other (Lt 3rd toe gagrenous) Labs: CBC, BMP 01/16/17 06:30 01/16/17 06:30 INR, PTT INR 1.21 (0.82-1.09) H 01/15/17 12:20 Assessment/Plan Lab,s OK Cleared for the procedure
[2017-01-16] MEDS ORDERED: HEPARIN NA (PORCINE) 5,000 UNITS/ML 1ML VIAL ONE (09:59)
[2017-01-16] MEDS ORDERED: LIDOCAINE HCL 1%, 10 MG/ML (20ML VIAL) ONE (09:59)
[2017-01-16] MEDS ORDERED: PROMETHAZINE HCL 25 MG/1 ML VIAL IVPUSH PRN ×2 (10:10→13:59)
[2017-01-16] MEDS ORDERED: ONDANSETRON 4 MG/2 ML VIAL IVPUSH PRN ×2 (10:10→13:59)
[2017-01-16] MEDS ORDERED: LACTATED RINGERS SOLUTION 1,000 ML IV SCH ×2 (10:15→13:59)
[2017-01-16] MEDS ORDERED: INSULIN (NOVOLOG) ASPART 100 UNITS/ML 10ML VIAL ONE ×3 (10:58→22:06)
[2017-01-16] MEDS ORDERED: INSULIN DETEMIR 100 UNITS/ML MDV SQ ONE (10:58)
[2017-01-16] MEDS ORDERED: ceFAZolin SODIUM 1 GM VIAL IVPB ONE (11:45)
[2017-01-16] MEDS ORDERED: LIDOCAINE HCL 1%, 10 MG/ML (20ML VIAL) IJ ONE (11:51)
--- NOTE | 2017-01-16 13:11 | OP ---
Operative Note - Note: Operative Date: 01/16/17 Pre-Operative Diagnosis: Left third toe gangrene Operation: Aortogram, LLE angiogram, anterior tibial artery atherectomy with angioplasty, posterior tibial artery angioplasty Findings: occluded PT at ankle Occluded AT from origin Post-Operative Diagnosis: Same as Pre-op Surgeon: Jey Hernandez Anesthesia: Fractional Estimated Blood Loss (mls): 50 Operative Report Dictated: Yes
[2017-01-16] MEDS ORDERED: CLOPIDOGREL BISULFATE 75 MG TABLET (FP) PO SCH (13:15)
[2017-01-16] MEDS: SODIUM CHLORIDE 0.45% 1,000 ML IV SCH (14:15)
[2017-01-16] MEDS ORDERED: CLOPIDOGREL BISULFATE 75 MG TABLET (FP) ONE (14:16)
[2017-01-16] MEDS: TAMSULOSIN HCL 0.4 MG CAP.ER.24H (FP) PO SCH (14:58)
[2017-01-16] MEDS: BRIMONIDINE TARTRATE 0.1% OPHTHALMIC 5 ML BOTTLE OU SCH ×2 (14:58→22:26)
[2017-01-16] MEDS: DONEPEZIL HCL 5 MG TABLET (FP) PO SCH (14:59)
[2017-01-16] MEDS: MEMANTINE HCL 10 MG TABLET (FP) PO SCH ×2 (14:59→22:24)
[2017-01-16] MEDS: DOCUSATE SODIUM 100 MG CAPSULE (FP) PO SCH ×2 (14:59→22:23)
[2017-01-16] MEDS: HEPARIN NA (PORCINE) 5,000 UNITS/ML 1ML VIAL SQ SCH ×2 (14:59→22:23)
[2017-01-16] MEDS: GABAPENTIN 300 MG CAPSULE (FP) PO SCH ×2 (14:59→22:24)
[2017-01-16] MEDS: DORZOLAMIDE 2% HCL OPHTHALMIC SOLUTION 10 ML BOTTLE OU SCH ×2 (15:00→22:27)
[2017-01-16] MEDS: METOPROLOL SUCCINATE 100 MG TAB.SR.24H (FP) PO SCH ×2 (15:00→17:26)
[2017-01-16] MEDS: amLODIPine BESYLATE 10 MG TABLET (FP) PO SCH ×2 (15:00→17:51)
[2017-01-16] MEDS: TIMOLOL 0.5% OPHTHALMIC SOL 5 ML BOTTLE OU SCH ×2 (15:00→22:26)
--- NOTE | 2017-01-16 16:19 | PN ---
Progress Note, Physician History of Present Illness: patient post angio doing well patient could not have mri because of constant leg movement - Current Medication List Current Medications: Active Medications Acetaminophen (Tylenol -) 650 mg PO Q4H PRN PRN Reason: PAIN Amlodipine Besylate (Norvasc -) 10 mg PO DAILY [facility] Brimonidine Tartrate (Alphagan P 0.1% -) 1 drop OU BID [facility] Clopidogrel Bisulfate (Plavix -) 75 mg PO DAILY [facility] Docusate Sodium (Colace -) 100 mg PO BID [facility] Donepezil HCl (Aricept -) 5 mg PO DAILY [facility] Dorzolamide HCl (Trusopt 2%) 1 drop OU BID [facility] Fentanyl (Sublimaze Injection -) 50 mcg IVPUSH [id number] PRN PRN Reason: PAIN Stop: 01/19/17 10:11 Gabapentin (Neurontin -) 300 mg PO BID [facility] Heparin Sodium (Porcine) (Heparin -) 5,000 unit SQ BID [facility] Ampicillin Sodium/Sulbactam (Sodium 3 gm/ Sodium Chloride) 100 mls @ 200 mls/ hr IVPB Q8H-IV [facility] Vancomycin HCl 1,250 mg/ (Dextrose) 250 mls @ 125 mls/hr IVPB DAILY@1600 [facility] PRN Reason: Protocol Sodium Chloride (1/2 Normal Saline) 1,000 mls @ 70 mls/hr IV ASDIR [facility] Last Admin: 01/16/17 14:15 Dose: 0 mls Insulin Aspart (Novolog Vial Sliding Scale -) 1 vial SQ ACHS [facility] PRN Reason: Protocol Insulin Aspart (Novolog Mix 70/30 Vial) 25 units SQ BIDAC [facility] Latanoprost (Xalatan 0.005% Eye Drops -) 1 drop OU HS [facility] Memantine (Namenda -) 10 mg PO BID [facility] Metoprolol Succinate (Toprol Xl -) 100 mg PO DAILY [facility] Mirtazapine (Remeron -) 15 mg PO HS [facility] Quetiapine Fumarate (Seroquel -) 50 mg PO HS [facility] Tamsulosin HCl (Flomax -) 0.4 mg PO DAILY@0830 [facility] Timolol Maleate (Timoptic 0.5%) 1 drop OU BID [facility] - Objective Vital Signs: Vital Signs Temperature 99.1 F 01/16/17 14:15 Pulse Rate 56 L 01/16/17 14:15 Respiratory Rate 12 01/16/17 14:15 Blood Pressure 144/57 01/16/17 14:15 O2 Sat by Pulse Oximetry (%) 97 01/15/17 22:00 Constitutional: Yes: No Distress, Calm Neck: Yes: Supple Cardiovascular: Yes: Regular Rate and Rhythm Respiratory: Yes: Regular, CTA Bilaterally Gastrointestinal: Yes: Normal Bowel Sounds, Soft Musculoskeletal: Yes: Other Extremities: Yes: Other Integumentary: Yes: Erythema, Other Wound/Incision: Yes: Clean/Dry, Dressing Dry and Intact Neurological: Yes: Alert, Oriented Psychiatric: Yes: Alert, Oriented Labs: CBC, BMP 01/16/17 06:30 01/16/17 06:30 INR, PTT INR 1.21 (0.82-1.09) H 01/15/17 12:20 Assessment/Plan cellulitis of the left foot gangrene of the 3rd left toe r/o osteo dm pvd p plan continue abx await for angiogram continue as per vascular ordered a tri phase bone scan to r/o osteo once we have that will make the final decision
[2017-01-16] MEDS ORDERED: METOPROLOL SUCCINATE 100 MG TAB.SR.24H (FP) PO ONE (17:17)
[2017-01-16] MEDS: VANCOMYCIN 1,250 MG in DEXTROSE 5%-WATER - 250 ML IVPB SCH (17:20)
[2017-01-16] MEDS: MIRTAZAPINE 15 MG TABLET (FP) PO SCH (22:25)
[2017-01-16] MEDS: QUEtiapine FUMARATE 25 MG TABLET (FP) PO SCH (22:25)
[2017-01-16] MEDS: LATANOPROST 0.005% OPHTH SOLN 2.5ML BOTTLE OU SCH (22:27)
[2017-01-17] MEDS ORDERED: PT OWN MED DRAWER 7, Y5N ONE ×3 (01:40→23:00)
[2017-01-17] MEDS: AMPICILLIN NA/SULBACTAM NA 3 GM in SODIUM CHLORIDE 100 ML IVPB SCH ×3 (02:52→17:32)
[2017-01-17] MEDS: SODIUM CHLORIDE 0.45% 1,000 ML IV SCH (06:30)
[2017-01-17] MEDS: INSULIN (NOVOLOG MIX 70/30) 100 UNITS/ML MDV SQ SCH ×2 (06:31→16:31)
[2017-01-17] MEDS: INSULIN SLIDING SCALE (NOVOLOG) 1 VIAL SQ SCH ×4 (06:31→23:02)
[2017-01-17] MEDS ORDERED: INSULIN (NOVOLOG MIX 70/30) 100 UNITS/ML MDV SQ ONE (07:01)
[2017-01-17] MEDS ORDERED: INSULIN DETEMIR 100 UNITS/ML MDV SQ ONE (07:01)
[2017-01-17] MEDS ORDERED: INSULIN (NOVOLOG) ASPART 100 UNITS/ML 10ML VIAL ONE ×2 (07:01→16:11)
--- NOTE | 2017-01-17 08:34 | PN ---
Progress Note, Physician Chief Complaint: Feels OK History of Present Illness: S/P angioplasty,Lt dorsalis pedis felt good - Current Medication List Current Medications: Active Medications Acetaminophen (Tylenol -) 650 mg PO Q4H PRN PRN Reason: PAIN Amlodipine Besylate (Norvasc -) 10 mg PO DAILY [facility] Last Admin: 01/16/17 17:51 Dose: 10 mg Brimonidine Tartrate (Alphagan P 0.1% -) 1 drop OU BID [facility] Last Admin: 01/16/17 22:26 Dose: 1 drop Clopidogrel Bisulfate (Plavix -) 75 mg PO DAILY [facility] Docusate Sodium (Colace -) 100 mg PO BID [facility] Last Admin: 01/16/17 22:23 Dose: 100 mg Donepezil HCl (Aricept -) 5 mg PO DAILY [facility] Dorzolamide HCl (Trusopt 2%) 1 drop OU BID [facility] Last Admin: 01/16/17 22:27 Dose: 1 drop Fentanyl (Sublimaze Injection -) 50 mcg IVPUSH [id number] PRN PRN Reason: PAIN Stop: 01/19/17 10:11 Gabapentin (Neurontin -) 300 mg PO BID [facility] Last Admin: 01/16/17 22:24 Dose: 300 mg Heparin Sodium (Porcine) (Heparin -) 5,000 unit SQ BID [facility] Last Admin: 01/16/17 22:23 Dose: 5,000 unit Ampicillin Sodium/Sulbactam (Sodium 3 gm/ Sodium Chloride) 100 mls @ 200 mls/ hr IVPB Q8H-IV [facility] Last Admin: 01/17/17 02:52 Dose: 200 mls/hr Vancomycin HCl 1,250 mg/ (Dextrose) 250 mls @ 125 mls/hr IVPB DAILY@1600 [facility] PRN Reason: Protocol Last Admin: 01/16/17 17:20 Dose: 125 mls/hr Sodium Chloride (1/2 Normal Saline) 1,000 mls @ 70 mls/hr IV ASDIR [facility] Last Admin: 01/17/17 06:30 Dose: 70 mls/hr Insulin Aspart (Novolog Vial Sliding Scale -) 1 vial SQ ACHS [facility] PRN Reason: Protocol Last Admin: 01/17/17 06:31 Dose: Not Given Insulin Aspart ([facility] 70/30 [facility] Admin: 01/17/17 06:31 Dose: 25 units Latanoprost (Xalatan 0.005% Eye Drops -) 1 drop OU [facility] Last Admin: 01/16/17 22:27 Dose: 1 drp Memantine (Namenda -) 10 mg PO BID [facility] Last Admin: 01/16/17 22:24 Dose: 10 mg Metoprolol Succinate (Toprol Xl -) 100 mg PO DAILY [facility] Last Admin: 01/16/17 17:26 Dose: 100 mg Mirtazapine (Remeron -) 15 mg PO [facility] Last Admin: 01/16/17 22:25 Dose: 15 mg Quetiapine Fumarate (Seroquel -) 50 mg PO [facility] Last Admin: 01/16/17 22:25 Dose: 50 mg Tamsulosin HCl (Flomax -) 0.4 mg PO DAILY@0830 [facility] Timolol Maleate (Timoptic 0.5%) 1 drop OU BID [facility] Last Admin: 01/16/17 22:26 Dose: 1 drop - Objective Vital Signs: Vital Signs Temperature 98.9 F 01/17/17 06:00 Pulse Rate 62 01/17/17 06:00 Respiratory Rate 18 01/17/17 06:00 Blood Pressure 152/77 01/17/17 06:00 O2 Sat by Pulse Oximetry (%) 99 01/16/17 21:00 Constitutional: Yes: No Distress Eyes: Yes: WNL HENT: Yes: WNL Neck: Yes: WNL Cardiovascular: Yes: WNL Respiratory: Yes: WNL Gastrointestinal: Yes: WNL ...Rectal Exam: Yes: Deferred Genitourinary: Yes: WNL Extremities: Yes: WNL Edema: No Peripheral Pulses: Left Doralis Pedis: 3+ Labs: CBC, BMP 01/16/17 06:30 01/16/17 06:30 INR, PTT INR 1.21 (0.82-1.09) H 01/15/17 12:20 Assessment/Plan scheduled for bone scan to R/O Lt 3rd toe ostiomylitis
[2017-01-17] MEDS: DOCUSATE SODIUM 100 MG CAPSULE (FP) PO SCH ×2 (09:00→23:01)
[2017-01-17] MEDS: GABAPENTIN 300 MG CAPSULE (FP) PO SCH ×2 (09:00→23:02)
[2017-01-17] MEDS: amLODIPine BESYLATE 10 MG TABLET (FP) PO SCH (09:00)
[2017-01-17] MEDS: MEMANTINE HCL 10 MG TABLET (FP) PO SCH ×2 (09:00→23:01)
[2017-01-17] MEDS: CLOPIDOGREL BISULFATE 75 MG TABLET (FP) PO SCH (09:01)
[2017-01-17] MEDS: HEPARIN NA (PORCINE) 5,000 UNITS/ML 1ML VIAL SQ SCH ×2 (09:01→23:02)
[2017-01-17] MEDS: DONEPEZIL HCL 5 MG TABLET (FP) PO SCH (09:01)
[2017-01-17] MEDS: BRIMONIDINE TARTRATE 0.1% OPHTHALMIC 5 ML BOTTLE OU SCH ×2 (09:05→23:05)
[2017-01-17] MEDS: DORZOLAMIDE 2% HCL OPHTHALMIC SOLUTION 10 ML BOTTLE OU SCH ×2 (09:05→23:05)
[2017-01-17] MEDS: TIMOLOL 0.5% OPHTHALMIC SOL 5 ML BOTTLE OU SCH ×2 (09:05→23:03)
[2017-01-17] MEDS: METOPROLOL SUCCINATE 100 MG TAB.SR.24H (FP) PO SCH (09:19)
[2017-01-17] MEDS: TAMSULOSIN HCL 0.4 MG CAP.ER.24H (FP) PO SCH (09:19)
--- NOTE | 2017-01-17 10:47 | PN ---
Addendum entered and electronically signed by Nader Willingham PA 01/18/17 10:55: LLE U/S: no DVT Original Note: Progress Note (short form) - Note Progress Note: POD #1 Alert. Sitting in chair at bedside. No complaints. T.max 101.3 F T.current 100.2 F PE Gen: nad RLE: groin stab incision intact. No hematoma LLE: Swollen from knee --> foot. Warm to touch. 3rd toe with gangrene. Slight odor. DP palpable Problem List - Problems (1) Cellulitis in diabetic foot Assessment/Plan: POD #1 s/p Aortogram, LLE angiogram, anterior tibial artery atherectomy with angioplasty, posterior tibial artery angioplasty f/u Venous duplex to r/o LLE DVT Local wound care Cont medical management Code(s): E13.628 - OTH DIABETES MELLITUS WITH OTHER SKIN COMPLICATIONS L03.119 - CELLULITIS OF UNSPECIFIED PART OF LIMB
--- NOTE | 2017-01-17 15:20 | PN ---
Progress Note, Physician History of Present Illness: patient stable no new issues - Current Medication List Current Medications: Active Medications Acetaminophen (Tylenol -) 650 mg PO Q4H PRN PRN Reason: PAIN Amlodipine Besylate (Norvasc -) 10 mg PO DAILY [facility] Last Admin: 01/17/17 09:00 Dose: 10 mg Brimonidine Tartrate (Alphagan P 0.1% -) 1 drop OU BID [facility] Last Admin: 01/17/17 09:05 Dose: 1 drop Clopidogrel Bisulfate (Plavix -) 75 mg PO DAILY [facility] Last Admin: 01/17/17 09:01 Dose: 75 mg Docusate Sodium (Colace -) 100 mg PO BID [facility] Last Admin: 01/17/17 09:00 Dose: 100 mg Donepezil HCl (Aricept -) 5 mg PO DAILY [facility] Last Admin: 01/17/17 09:01 Dose: 5 mg Dorzolamide HCl (Trusopt 2%) 1 drop OU BID [facility] Last Admin: 01/17/17 09:05 Dose: 1 drop Fentanyl (Sublimaze Injection -) 50 mcg IVPUSH [id number] PRN PRN Reason: PAIN Stop: 01/19/17 10:11 Gabapentin (Neurontin -) 300 mg PO BID [facility] Last Admin: 01/17/17 09:00 Dose: 300 mg Heparin Sodium (Porcine) (Heparin -) 5,000 unit SQ BID [facility] Last Admin: 01/17/17 09:01 Dose: 5,000 unit Ampicillin Sodium/Sulbactam (Sodium 3 gm/ Sodium Chloride) 100 mls @ 200 mls/ hr IVPB Q8H-IV [facility] Last Admin: 01/17/17 09:02 Dose: 200 mls/hr Vancomycin HCl 1,250 mg/ (Dextrose) 250 mls @ 125 mls/hr IVPB DAILY@1600 [facility] PRN Reason: Protocol Last Admin: 01/16/17 17:20 Dose: 125 mls/hr Insulin Aspart (Novolog Vial Sliding Scale -) 1 vial SQ ACHS [facility] PRN Reason: Protocol Last Admin: 01/17/17 12:45 Dose: Not Given Insulin Aspart (Novolog Mix 70/30 Vial) 25 units SQ BIDAC [facility] Last Admin: 01/17/17 06:31 Dose: 25 units Latanoprost (Xalatan 0.005% Eye Drops -) 1 drop OU HS [facility] Last Admin: 01/16/17 22:27 Dose: 1 drp Memantine (Namenda -) 10 mg PO BID [facility] Last Admin: 01/17/17 09:00 Dose: 10 mg Metoprolol Succinate (Toprol Xl -) 100 mg PO DAILY [facility] Last Admin: 01/17/17 09:19 Dose: 100 mg Mirtazapine (Remeron -) 15 mg PO [facility] Last Admin: 01/16/17 22:25 Dose: 15 mg Quetiapine Fumarate (Seroquel -) 50 mg PO [facility] Last Admin: 01/16/17 22:25 Dose: 50 mg Tamsulosin HCl (Flomax -) 0.4 mg PO DAILY@0830 [facility] Last Admin: 01/17/17 09:19 Dose: 0.4 mg Timolol Maleate (Timoptic 0.5%) 1 drop OU BID [facility] Last Admin: 01/17/17 09:05 Dose: 1 drop - Objective Vital Signs: Vital Signs Temperature 98.5 F 01/17/17 09:00 Pulse Rate 62 01/17/17 09:00 Respiratory Rate 18 01/17/17 09:00 Blood Pressure 158/74 01/17/17 09:00 O2 Sat by Pulse Oximetry (%) 99 01/16/17 21:00 Constitutional: Yes: No Distress, Calm Cardiovascular: Yes: Regular Rate and Rhythm Respiratory: Yes: Regular, CTA Bilaterally Gastrointestinal: Yes: Normal Bowel Sounds, Soft Musculoskeletal: Yes: Other Extremities: Yes: Other Wound/Incision: Yes: Dressing Dry and Intact, Other Neurological: Yes: Alert, Oriented Psychiatric: Yes: Alert, Oriented Labs: CBC, BMP 01/16/17 06:30 01/16/17 06:30 INR, PTT INR 1.21 (0.82-1.09) H 01/15/17 12:20 Assessment/Plan cellulitis of the left foot gangrene of the 3rd left toe r/o osteo dm pvd p plan continue abx await for bone scan result will have to make decision
[2017-01-17] MEDS: VANCOMYCIN 1,250 MG in DEXTROSE 5%-WATER - 250 ML IVPB SCH ×2 (16:00→18:47)
--- NOTE | 2017-01-17 18:10 | PN ---
Progress Note (short form) - Note Progress Note: Vascular Surgery Pt seen and examined. Doing well. Left lower ext warm, pink. Leg has swelling from new found blood flow to lower ext. Cont plavix. Bone scan done today. Might need PICC line. Will watch toe. Will try to salvage. Jey Hernandez DO
--- NOTE | 2017-01-17 21:06 | PN ---
Progress Note (short form) - Note Progress Note: Anesthesia postop note 81 y/o M s/p MAC anesthesia for angiogram/angioplasty POD#1, vss, alert and awake, no complaints No anesthesia complications.
[2017-01-17] MEDS: QUEtiapine FUMARATE 25 MG TABLET (FP) PO SCH (23:01)
[2017-01-17] MEDS: MIRTAZAPINE 15 MG TABLET (FP) PO SCH (23:02)
[2017-01-17] MEDS: LATANOPROST 0.005% OPHTH SOLN 2.5ML BOTTLE OU SCH (23:06)
[2017-01-17] MEDS: ACETAMINOPHEN 325 MG TABLET (FP) PO PRN (23:07)
[2017-01-18] MEDS: AMPICILLIN NA/SULBACTAM NA 3 GM in SODIUM CHLORIDE 100 ML IVPB SCH ×3 (01:17→18:34)
[2017-01-18] MEDS: INSULIN SLIDING SCALE (NOVOLOG) 1 VIAL SQ SCH ×4 (06:17→21:04)
[2017-01-18] MEDS: TAMSULOSIN HCL 0.4 MG CAP.ER.24H (FP) PO SCH (08:45)
[2017-01-18] MEDS: INSULIN (NOVOLOG MIX 70/30) 100 UNITS/ML MDV SQ SCH ×2 (08:45→17:03)
[2017-01-18] MEDS ORDERED: INSULIN (NOVOLOG MIX 70/30) 100 UNITS/ML MDV SQ ONE (09:01)
[2017-01-18] MEDS ORDERED: PT OWN MED DRAWER 7, Y5N ONE ×3 (10:20→20:29)
[2017-01-18] MEDS: amLODIPine BESYLATE 10 MG TABLET (FP) PO SCH (10:23)
[2017-01-18] MEDS: GABAPENTIN 300 MG CAPSULE (FP) PO SCH ×2 (10:23→21:03)
[2017-01-18] MEDS: HEPARIN NA (PORCINE) 5,000 UNITS/ML 1ML VIAL SQ SCH ×2 (10:24→21:03)
[2017-01-18] MEDS: METOPROLOL SUCCINATE 100 MG TAB.SR.24H (FP) PO SCH (10:24)
[2017-01-18] MEDS: DONEPEZIL HCL 5 MG TABLET (FP) PO SCH (10:24)
[2017-01-18] MEDS: CLOPIDOGREL BISULFATE 75 MG TABLET (FP) PO SCH (10:24)
[2017-01-18] MEDS: DOCUSATE SODIUM 100 MG CAPSULE (FP) PO SCH ×2 (10:24→21:01)
[2017-01-18] MEDS: MEMANTINE HCL 10 MG TABLET (FP) PO SCH ×2 (10:24→21:01)
[2017-01-18] MEDS: BRIMONIDINE TARTRATE 0.1% OPHTHALMIC 5 ML BOTTLE OU SCH ×2 (10:25→21:23)
[2017-01-18] MEDS: TIMOLOL 0.5% OPHTHALMIC SOL 5 ML BOTTLE OU SCH ×2 (10:26→21:05)
[2017-01-18] MEDS: DORZOLAMIDE 2% HCL OPHTHALMIC SOLUTION 10 ML BOTTLE OU SCH ×2 (10:27→21:05)
--- NOTE | 2017-01-18 12:51 | PN ---
Progress Note, Physician Chief Complaint: Feels OK History of Present Illness: After the surgery the circulation improved.but the 3rd toe not improving May need amputation - Current Medication List Current Medications: Active Medications Acetaminophen (Tylenol -) 650 mg PO Q4H PRN PRN Reason: PAIN Last Admin: 01/17/17 23:07 Dose: 650 mg Amlodipine Besylate (Norvasc -) 10 mg PO DAILY [facility] Last Admin: 01/18/17 10:23 Dose: 10 mg Brimonidine Tartrate (Alphagan P 0.1% -) 1 drop OU BID [facility] Last Admin: 01/18/17 10:25 Dose: 1 drop Clopidogrel Bisulfate (Plavix -) 75 mg PO DAILY [facility] Last Admin: 01/18/17 10:24 Dose: 75 mg Docusate Sodium (Colace -) 100 mg PO BID [facility] Last Admin: 01/18/17 10:24 Dose: 100 mg Donepezil HCl (Aricept -) 5 mg PO DAILY [facility] Last Admin: 01/18/17 10:24 Dose: 5 mg Dorzolamide HCl (Trusopt 2%) 1 drop OU BID [facility] Last Admin: 01/18/17 10:27 Dose: 1 drop Fentanyl (Sublimaze Injection -) 50 mcg IVPUSH [id number] PRN PRN Reason: PAIN Stop: 01/19/17 10:11 Gabapentin (Neurontin -) 300 mg PO BID [facility] Last Admin: 01/18/17 10:23 Dose: 300 mg Heparin Sodium (Porcine) (Heparin -) 5,000 unit SQ BID [facility] Last Admin: 01/18/17 10:24 Dose: 5,000 unit Ampicillin Sodium/Sulbactam (Sodium 3 gm/ Sodium Chloride) 100 mls @ 200 mls/ hr IVPB Q8H-IV [facility] Last Admin: 01/18/17 10:27 Dose: 200 mls/hr Vancomycin HCl 1,250 mg/ (Dextrose) 250 mls @ 125 mls/hr IVPB DAILY@1600 [facility] PRN Reason: Protocol Last Admin: 01/17/17 18:47 Dose: 125 mls/hr Insulin Aspart (Novolog Vial Sliding Scale -) 1 vial SQ ACHS [facility] PRN Reason: Protocol Last Admin: 01/18/17 12:12 Dose: Not Given Insulin Aspart ([facility] 70[facility]30 [facility]) [facility] Last Admin: 01/18/17 08:45 Dose: 25 units Latanoprost (Xalatan 0.005% Eye Drops -) 1 drop OU HS [facility] Last Admin: 01/17/17 23:06 Dose: 1 drp Memantine (Namenda -) 10 mg PO BID [facility] Last Admin: 01/18/17 10:24 Dose: 10 mg Metoprolol Succinate (Toprol Xl -) 100 mg PO DAILY [facility] Last Admin: 01/18/17 10:24 Dose: 100 mg Mirtazapine (Remeron -) 15 mg PO HS [facility] Last Admin: 01/17/17 23:02 Dose: 15 mg Quetiapine Fumarate (Seroquel -) 50 mg PO HS [facility] Last Admin: 01/17/17 23:01 Dose: 50 mg Tamsulosin HCl (Flomax -) 0.4 mg PO DAILY@0830 [facility] Last Admin: 01/18/17 08:45 Dose: 0.4 mg Timolol Maleate (Timoptic 0.5%) 1 drop OU BID [facility] Last Admin: 01/18/17 10:26 Dose: 1 drop - Objective Vital Signs: Vital Signs Temperature 98.0 F 01/18/17 06:00 Pulse Rate 58 L 01/18/17 06:00 Respiratory Rate 18 01/18/17 06:00 Blood Pressure 144/74 01/18/17 06:00 O2 Sat by Pulse Oximetry (%) 95 01/17/17 09:00 Constitutional: Yes: No Distress Eyes: Yes: WNL HENT: Yes: WNL Neck: Yes: WNL Cardiovascular: Yes: WNL Respiratory: Yes: WNL Gastrointestinal: Yes: WNL, Distention ...Rectal Exam: Yes: WNL Genitourinary: Yes: WNL Edema: No Peripheral Pulses WNL: Yes Labs: CBC, BMP 01/16/17 06:30 01/16/17 06:30 INR, PTT INR 1.21 (0.82-1.09) H 01/15/17 12:20 - ....Imaging Ultrasound: Report Reviewed Assessment/Plan DVT studies Neg Case to be discussed with Dr Hernandez
--- NOTE | 2017-01-18 13:32 | PN ---
Progress Note, Physician History of Present Illness: patient stable no new issues - Current Medication List Current Medications: Active Medications Acetaminophen (Tylenol -) 650 mg PO Q4H PRN PRN Reason: PAIN Last Admin: 01/17/17 23:07 Dose: 650 mg Amlodipine Besylate (Norvasc -) 10 mg PO DAILY [facility] Last Admin: 01/18/17 10:23 Dose: 10 mg Brimonidine Tartrate (Alphagan P 0.1% -) 1 drop OU BID [facility] Last Admin: 01/18/17 10:25 Dose: 1 drop Clopidogrel Bisulfate (Plavix -) 75 mg PO DAILY [facility] Last Admin: 01/18/17 10:24 Dose: 75 mg Docusate Sodium (Colace -) 100 mg PO BID [facility] Last Admin: 01/18/17 10:24 Dose: 100 mg Donepezil HCl (Aricept -) 5 mg PO DAILY [facility] Last Admin: 01/18/17 10:24 Dose: 5 mg Dorzolamide HCl (Trusopt 2%) 1 drop OU BID [facility] Last Admin: 01/18/17 10:27 Dose: 1 drop Fentanyl (Sublimaze Injection -) 50 mcg IVPUSH [id number] PRN PRN Reason: PAIN Stop: 01/19/17 10:11 Gabapentin (Neurontin -) 300 mg PO BID [facility] Last Admin: 01/18/17 10:23 Dose: 300 mg Heparin Sodium (Porcine) (Heparin -) 5,000 unit SQ BID [facility] Last Admin: 01/18/17 10:24 Dose: 5,000 unit Ampicillin Sodium/Sulbactam (Sodium 3 gm/ Sodium Chloride) 100 mls @ 200 mls/ hr IVPB Q8H-IV [facility] Last Admin: 01/18/17 10:27 Dose: 200 mls/hr Vancomycin HCl 1,250 mg/ (Dextrose) 250 mls @ 125 mls/hr IVPB DAILY@1600 [facility] PRN Reason: Protocol Last Admin: 01/17/17 18:47 Dose: 125 mls/hr Insulin Aspart (Novolog Vial Sliding Scale -) 1 vial SQ ACHS [facility] PRN Reason: Protocol Last Admin: 01/18/17 12:12 Dose: Not Given Insulin Aspart (Novolog Mix 70/30 Vial) 25 units SQ BIDAC [facility] Last Admin: 01/18/17 08:45 Dose: 25 units Latanoprost (Xalatan 0.005% Eye Drops -) 1 drop OU [facility] Last Admin: 01/17/17 23:06 Dose: 1 drp Memantine (Namenda -) 10 mg PO BID [facility] Last Admin: 01/18/17 10:24 Dose: 10 mg Metoprolol Succinate (Toprol Xl -) 100 mg PO DAILY [facility] Last Admin: 01/18/17 10:24 Dose: 100 mg Mirtazapine (Remeron -) 15 mg PO [facility] Last Admin: 01/17/17 23:02 Dose: 15 mg Quetiapine Fumarate (Seroquel -) 50 mg PO [facility] Last Admin: 01/17/17 23:01 Dose: 50 mg Tamsulosin HCl (Flomax -) 0.4 mg PO DAILY@0830 [facility] Last Admin: 01/18/17 08:45 Dose: 0.4 mg Timolol Maleate (Timoptic 0.5%) 1 drop OU BID [facility] Last Admin: 01/18/17 10:26 Dose: 1 drop - Objective Vital Signs: Vital Signs Temperature 98.8 F 01/18/17 09:00 Pulse Rate 67 01/18/17 09:00 Respiratory Rate 18 01/18/17 09:00 Blood Pressure 157/61 01/18/17 09:00 O2 Sat by Pulse Oximetry (%) 95 01/17/17 09:00 Constitutional: Yes: No Distress, Calm Cardiovascular: Yes: Regular Rate and Rhythm Respiratory: Yes: Regular, CTA Bilaterally Gastrointestinal: Yes: Normal Bowel Sounds, Soft Musculoskeletal: Yes: Other Extremities: Yes: Other Integumentary: Yes: Other Wound/Incision: Yes: Dressing Dry and Intact, Other Neurological: Yes: Alert, Oriented Psychiatric: Yes: Alert, Oriented Labs: CBC, BMP 01/16/17 06:30 01/16/17 06:30 INR, PTT INR 1.21 (0.82-1.09) H 01/15/17 12:20 Assessment/Plan cellulitis of the left foot 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
[2017-01-18] MEDS: VANCOMYCIN 1,250 MG in DEXTROSE 5%-WATER - 250 ML IVPB SCH (16:23)
[2017-01-18] MEDS: ACETAMINOPHEN 325 MG TABLET (FP) PO PRN (20:55)
[2017-01-18] MEDS: MIRTAZAPINE 15 MG TABLET (FP) PO SCH (21:02)
[2017-01-18] MEDS: QUEtiapine FUMARATE 25 MG TABLET (FP) PO SCH (21:03)
[2017-01-18] MEDS: LATANOPROST 0.005% OPHTH SOLN 2.5ML BOTTLE OU SCH (21:05)
[2017-01-19] MEDS ORDERED: PT OWN MED DRAWER 7, Y5N ONE ×3 (02:06→22:17)
[2017-01-19] MEDS: AMPICILLIN NA/SULBACTAM NA 3 GM in SODIUM CHLORIDE 100 ML IVPB SCH ×3 (03:02→17:33)
[2017-01-19] MEDS: INSULIN SLIDING SCALE (NOVOLOG) 1 VIAL SQ SCH ×4 (06:26→22:55)
[2017-01-19] MEDS: INSULIN (NOVOLOG MIX 70/30) 100 UNITS/ML MDV SQ SCH ×3 (06:27→17:33)
--- NOTE | 2017-01-19 09:36 | PN ---
Progress Note, Physician Chief Complaint: No new complaints History of Present Illness: jemima Snyder ID follow up note noted Will need amputation of Rt 3rd toe,will discuss with Dr Hernandez - Current Medication List Current Medications: Active Medications Acetaminophen (Tylenol -) 650 mg PO Q4H PRN PRN Reason: PAIN Last Admin: 01/18/17 20:55 Dose: 650 mg Amlodipine Besylate (Norvasc -) 10 mg PO DAILY [facility] Last Admin: 01/18/17 10:23 Dose: 10 mg Brimonidine Tartrate (Alphagan P 0.1% -) 1 drop OU BID [facility] Last Admin: 01/18/17 21:23 Dose: 1 drop Clopidogrel Bisulfate (Plavix -) 75 mg PO DAILY [facility] Last Admin: 01/18/17 10:24 Dose: 75 mg Docusate Sodium (Colace -) 100 mg PO BID [facility] Last Admin: 01/18/17 21:01 Dose: 100 mg Donepezil HCl (Aricept -) 5 mg PO DAILY [facility] Last Admin: 01/18/17 10:24 Dose: 5 mg Dorzolamide HCl (Trusopt 2%) 1 drop OU BID [facility] Last Admin: 01/18/17 21:05 Dose: 1 drop Fentanyl (Sublimaze Injection -) 50 mcg IVPUSH [id number] PRN PRN Reason: PAIN Stop: 01/19/17 10:11 Gabapentin (Neurontin -) 300 mg PO BID [facility] Last Admin: 01/18/17 21:03 Dose: 300 mg Heparin Sodium (Porcine) (Heparin -) 5,000 unit SQ BID [facility] Last Admin: 01/18/17 21:03 Dose: 5,000 unit Ampicillin Sodium/Sulbactam (Sodium 3 gm/ Sodium Chloride) 100 mls @ 200 mls/ hr IVPB Q8H-IV [facility] Last Admin: 01/19/17 03:02 Dose: 200 mls/hr Vancomycin HCl 1,250 mg/ (Dextrose) 250 mls @ 125 mls/hr IVPB DAILY@1600 [facility] PRN Reason: Protocol Last Admin: 01/18/17 16:23 Dose: 125 mls/hr Insulin Aspart (Novolog Vial Sliding Scale -) 1 vial SQ ACHS [facility] PRN Reason: Protocol Last Admin: 01/19/17 06:26 Dose: Not Given Insulin Aspart ([facility] 70/30 [facility]) [facility] Last Admin: 01/19/17 07:38 Dose: 25 units Latanoprost (Xalatan 0.005% Eye Drops -) 1 drop OU HS [facility] Last Admin: 01/18/17 21:05 Dose: 1 drp Memantine (Namenda -) 10 mg PO BID [facility] Last Admin: 01/18/17 21:01 Dose: 10 mg Metoprolol Succinate (Toprol Xl -) 100 mg PO DAILY [facility] Last Admin: 01/18/17 10:24 Dose: 100 mg Mirtazapine (Remeron -) 15 mg PO [facility] Last Admin: 01/18/17 21:02 Dose: 15 mg Quetiapine Fumarate (Seroquel -) 50 mg PO [facility] Last Admin: 01/18/17 21:03 Dose: 50 mg Tamsulosin HCl (Flomax -) 0.4 mg PO DAILY@0830 [facility] Last Admin: 01/18/17 08:45 Dose: 0.4 mg Timolol Maleate (Timoptic 0.5%) 1 drop OU BID [facility] Last Admin: 01/18/17 21:05 Dose: 1 drop - Objective Vital Signs: Vital Signs Temperature 98.5 F 01/19/17 06:00 Pulse Rate 63 01/19/17 06:00 Respiratory Rate 20 01/19/17 06:00 Blood Pressure 161/82 01/19/17 06:00 O2 Sat by Pulse Oximetry (%) 95 01/17/17 09:00 Constitutional: Yes: No Distress Eyes: Yes: WNL HENT: Yes: WNL Neck: Yes: WNL Cardiovascular: Yes: WNL Respiratory: Yes: Regular Gastrointestinal: Yes: WNL ...Rectal Exam: Yes: Deferred Genitourinary: Yes: WNL Extremities: Yes: Other (3rd toe Rt gagrenous) Neurological: Yes: Alert Labs: CBC, BMP 01/16/17 06:30 01/16/17 06:30 INR, PTT INR 1.21 (0.82-1.09) H 01/15/17 12:20 Assessment/Plan Amputation of Rt 3rd toe
[2017-01-19] MEDS: DONEPEZIL HCL 5 MG TABLET (FP) PO SCH (10:44)
[2017-01-19] MEDS: MEMANTINE HCL 10 MG TABLET (FP) PO SCH ×2 (10:44→22:38)
[2017-01-19] MEDS: TAMSULOSIN HCL 0.4 MG CAP.ER.24H (FP) PO SCH (10:44)
[2017-01-19] MEDS: GABAPENTIN 300 MG CAPSULE (FP) PO SCH ×2 (10:45→22:38)
[2017-01-19] MEDS: METOPROLOL SUCCINATE 100 MG TAB.SR.24H (FP) PO SCH (10:45)
[2017-01-19] MEDS: HEPARIN NA (PORCINE) 5,000 UNITS/ML 1ML VIAL SQ SCH ×2 (10:45→22:48)
[2017-01-19] MEDS: amLODIPine BESYLATE 10 MG TABLET (FP) PO SCH (10:45)
[2017-01-19] MEDS: DOCUSATE SODIUM 100 MG CAPSULE (FP) PO SCH ×2 (10:45→22:39)
[2017-01-19] MEDS: CLOPIDOGREL BISULFATE 75 MG TABLET (FP) PO SCH (10:45)
[2017-01-19] MEDS: DORZOLAMIDE 2% HCL OPHTHALMIC SOLUTION 10 ML BOTTLE OU SCH ×2 (10:49→22:39)
[2017-01-19] MEDS: BRIMONIDINE TARTRATE 0.1% OPHTHALMIC 5 ML BOTTLE OU SCH ×2 (10:50→22:39)
[2017-01-19] MEDS: TIMOLOL 0.5% OPHTHALMIC SOL 5 ML BOTTLE OU SCH ×2 (10:50→22:39)
--- NOTE | 2017-01-19 16:16 | PN ---
Progress Note, Physician History of Present Illness: patient stable no new issues leg feels better - Current Medication List Current Medications: Active Medications Acetaminophen (Tylenol -) 650 mg PO Q4H PRN PRN Reason: PAIN Last Admin: 01/18/17 20:55 Dose: 650 mg Amlodipine Besylate (Norvasc -) 10 mg PO DAILY [facility] Last Admin: 01/19/17 10:45 Dose: 10 mg Brimonidine Tartrate (Alphagan P 0.1% -) 1 drop OU BID [facility] Last Admin: 01/19/17 10:50 Dose: 1 drop Clopidogrel Bisulfate (Plavix -) 75 mg PO DAILY [facility] Last Admin: 01/19/17 10:45 Dose: 75 mg Docusate Sodium (Colace -) 100 mg PO BID [facility] Last Admin: 01/19/17 10:45 Dose: 100 mg Donepezil HCl (Aricept -) 5 mg PO DAILY [facility] Last Admin: 01/19/17 10:44 Dose: 5 mg Dorzolamide HCl (Trusopt 2%) 1 drop OU BID [facility] Last Admin: 01/19/17 10:49 Dose: 1 drop Gabapentin (Neurontin -) 300 mg PO BID [facility] Last Admin: 01/19/17 10:45 Dose: 300 mg Heparin Sodium (Porcine) (Heparin -) 5,000 unit SQ BID [facility] Last Admin: 01/19/17 10:45 Dose: 5,000 unit Ampicillin Sodium/Sulbactam (Sodium 3 gm/ Sodium Chloride) 100 mls @ 200 mls/ hr IVPB Q8H-IV [facility] Last Admin: 01/19/17 10:46 Dose: 200 mls/hr Vancomycin HCl 1,250 mg/ (Dextrose) 250 mls @ 125 mls/hr IVPB DAILY@1600 [facility] PRN Reason: Protocol Last Admin: 01/18/17 16:23 Dose: 125 mls/hr Insulin Aspart (Novolog Vial Sliding Scale -) 1 vial SQ ACHS [facility] PRN Reason: Protocol Last Admin: 01/19/17 12:06 Dose: Not Given Insulin Aspart (Novolog Mix 70/30 Vial) 25 units SQ BIDAC [facility] Last Admin: 01/19/17 07:38 Dose: 25 units Latanoprost (Xalatan 0.005% Eye Drops -) 1 drop OU HS [facility] Last Admin: 01/18/17 21:05 Dose: 1 drp Memantine (Namenda -) 10 mg PO BID [facility] Last Admin: 01/19/17 10:44 Dose: 10 mg Metoprolol Succinate (Toprol Xl -) 100 mg PO DAILY [facility] Last Admin: 01/19/17 10:45 Dose: 100 mg Mirtazapine (Remeron -) 15 mg PO [facility] Last Admin: 01/18/17 21:02 Dose: 15 mg Quetiapine Fumarate (Seroquel -) 50 mg PO [facility] Last Admin: 01/18/17 21:03 Dose: 50 mg Tamsulosin HCl (Flomax -) 0.4 mg PO DAILY@0830 [facility] Last Admin: 01/19/17 10:44 Dose: 0.4 mg Timolol Maleate (Timoptic 0.5%) 1 drop OU BID [facility] Last Admin: 01/19/17 10:50 Dose: 1 drop - Objective Vital Signs: Vital Signs Temperature 98.8 F 01/19/17 14:52 Pulse Rate 93 H 01/19/17 14:52 Respiratory Rate 20 01/19/17 14:52 Blood Pressure 162/79 01/19/17 14:52 O2 Sat by Pulse Oximetry (%) 96 01/19/17 09:00 Constitutional: Yes: No Distress, Calm Cardiovascular: Yes: Regular Rate and Rhythm Respiratory: Yes: Regular, CTA Bilaterally Gastrointestinal: Yes: Normal Bowel Sounds, Soft Musculoskeletal: Yes: Other Extremities: Yes: Erythema (improved), Other Integumentary: Yes: Other Wound/Incision: Yes: Dressing Dry and Intact Neurological: Yes: Alert, Oriented Psychiatric: Yes: Alert, Oriented Labs: CBC, BMP 01/16/17 06:30 01/16/17 06:30 INR, PTT INR 1.21 (0.82-1.09) H 01/15/17 12:20 Assessment/Plan cellulitis of the left foot 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
[2017-01-19] MEDS: VANCOMYCIN 1,250 MG in DEXTROSE 5%-WATER - 250 ML IVPB SCH (17:33)
[2017-01-19] MEDS: QUEtiapine FUMARATE 25 MG TABLET (FP) PO SCH (22:38)
[2017-01-19] MEDS: MIRTAZAPINE 15 MG TABLET (FP) PO SCH (22:38)
[2017-01-19] MEDS: LATANOPROST 0.005% OPHTH SOLN 2.5ML BOTTLE OU SCH (22:40)
[2017-01-20] MEDS ORDERED: PT OWN MED DRAWER 7, Y5N ONE ×7 (02:25→23:02)
[2017-01-20] MEDS: ACETAMINOPHEN 325 MG TABLET (FP) PO PRN (02:31)
[2017-01-20] MEDS: amLODIPine BESYLATE 10 MG TABLET (FP) PO ONE ×2 (02:32→03:53)
[2017-01-20] MEDS: AMPICILLIN NA/SULBACTAM NA 3 GM in SODIUM CHLORIDE 100 ML IVPB SCH ×3 (02:32→18:11)
[2017-01-20] MEDS: INSULIN SLIDING SCALE (NOVOLOG) 1 VIAL SQ SCH ×4 (06:38→23:13)
[2017-01-20] MEDS: INSULIN (NOVOLOG MIX 70/30) 100 UNITS/ML MDV SQ SCH ×2 (06:39→16:40)
[2017-01-20] MEDS: TAMSULOSIN HCL 0.4 MG CAP.ER.24H (FP) PO SCH (08:34)
--- NOTE | 2017-01-20 09:24 | PN ---
Progress Note, Physician Chief Complaint: No new complaints History of Present Illness: Patient examined with Dr Hernandez .His also was present there Need for the amputation of the 3rd and possible 2d and 4th amputation explained to his - Current Medication List Current Medications: Active Medications Acetaminophen (Tylenol -) 650 mg PO Q4H PRN PRN Reason: PAIN Last Admin: 01/20/17 02:31 Dose: 650 mg Amlodipine Besylate (Norvasc -) 10 mg PO DAILY [facility] Last Admin: 01/19/17 10:45 Dose: 10 mg Brimonidine Tartrate (Alphagan P 0.1% -) 1 drop OU BID [facility] Last Admin: 01/19/17 22:39 Dose: 1 drop Clopidogrel Bisulfate (Plavix -) 75 mg PO DAILY [facility] Last Admin: 01/19/17 10:45 Dose: 75 mg Docusate Sodium (Colace -) 100 mg PO BID [facility] Last Admin: 01/19/17 22:39 Dose: 100 mg Donepezil HCl (Aricept -) 5 mg PO DAILY [facility] Last Admin: 01/19/17 10:44 Dose: 5 mg Dorzolamide HCl (Trusopt 2%) 1 drop OU BID [facility] Last Admin: 01/19/17 22:39 Dose: 1 drop Gabapentin (Neurontin -) 300 mg PO BID [facility] Last Admin: 01/19/17 22:38 Dose: 300 mg Heparin Sodium (Porcine) (Heparin -) 5,000 unit SQ BID [facility] Last Admin: 01/19/17 22:48 Dose: 5,000 unit Ampicillin Sodium/Sulbactam (Sodium 3 gm/ Sodium Chloride) 100 mls @ 200 mls/ hr IVPB Q8H-IV [facility] Last Admin: 01/20/17 02:32 Dose: 200 mls/hr Vancomycin HCl 1,250 mg/ (Dextrose) 250 mls @ 125 mls/hr IVPB DAILY@1600 [facility] PRN Reason: Protocol Last Admin: 01/19/17 17:33 Dose: 125 mls/hr Insulin Aspart (Novolog Vial Sliding Scale -) 1 vial SQ ACHS [facility] PRN Reason: Protocol Last Admin: 01/20/17 06:38 Dose: Not Given Insulin Aspart (Novolog Mix 70/30 Vial) 25 units SQ BIDAC [facility] Last Admin: 01/20/17 06:39 Dose: 25 units Latanoprost (Xalatan 0.005% Eye Drops -) 1 drop OU [facility] Last Admin: 01/19/17 22:40 Dose: 1 drp Memantine (Namenda -) 10 mg PO BID [facility] Last Admin: 01/19/17 22:38 Dose: 10 mg Metoprolol Succinate (Toprol Xl -) 100 mg PO DAILY [facility] Last Admin: 01/19/17 10:45 Dose: 100 mg Mirtazapine (Remeron -) 15 mg PO [facility] Last Admin: 01/19/17 22:38 Dose: 15 mg Quetiapine Fumarate (Seroquel -) 50 mg PO [facility] Last Admin: 01/19/17 22:38 Dose: 50 mg Tamsulosin HCl (Flomax -) 0.4 mg PO DAILY@0830 [facility] Last Admin: 01/20/17 08:34 Dose: 0.4 mg Timolol Maleate (Timoptic 0.5%) 1 drop OU BID [facility] Last Admin: 01/19/17 22:39 Dose: 1 drop - Objective Vital Signs: Vital Signs Temperature 98.2 F 01/20/17 06:00 Pulse Rate 63 01/20/17 06:00 Respiratory Rate 18 01/20/17 06:00 Blood Pressure 146/77 01/20/17 06:00 O2 Sat by Pulse Oximetry (%) 98 01/19/17 21:00 Constitutional: Yes: No Distress Eyes: Yes: WNL HENT: Yes: WNL Neck: Yes: WNL Cardiovascular: Yes: WNL Respiratory: Yes: WNL Gastrointestinal: Yes: WNL ...Rectal Exam: Yes: Deferred Genitourinary: Yes: WNL Musculoskeletal: Yes: WNL Wound/Incision: Yes: Open to air Neurological: Yes: WNL, Unresponsive Psychiatric: Yes: Alert Labs: CBC, BMP 01/16/17 06:30 01/16/17 06:30 INR, PTT INR 1.21 (0.82-1.09) H 01/15/17 12:20 Assessment/Plan AM labs
--- NOTE | 2017-01-20 09:33 | PN ---
Progress Note (short form) - Note Progress Note: Vascular Surgery Left third toe gangrene. will do toe amputation in am. NPO past midnite. Jey Hernandez DO
[2017-01-20] MEDS: amLODIPine BESYLATE 10 MG TABLET (FP) PO SCH (09:37)
[2017-01-20] MEDS: GABAPENTIN 300 MG CAPSULE (FP) PO SCH ×2 (09:38→23:05)
[2017-01-20] MEDS: HEPARIN NA (PORCINE) 5,000 UNITS/ML 1ML VIAL SQ SCH (09:38)
[2017-01-20] MEDS: MEMANTINE HCL 10 MG TABLET (FP) PO SCH ×2 (09:38→23:04)
[2017-01-20] MEDS: CLOPIDOGREL BISULFATE 75 MG TABLET (FP) PO SCH (09:38)
[2017-01-20] MEDS: METOPROLOL SUCCINATE 100 MG TAB.SR.24H (FP) PO SCH (09:38)
[2017-01-20] MEDS: DONEPEZIL HCL 5 MG TABLET (FP) PO SCH (09:38)
[2017-01-20] MEDS: DOCUSATE SODIUM 100 MG CAPSULE (FP) PO SCH ×2 (09:38→23:04)
[2017-01-20] MEDS: BRIMONIDINE TARTRATE 0.1% OPHTHALMIC 5 ML BOTTLE OU SCH ×2 (09:46→23:07)
[2017-01-20] MEDS: DORZOLAMIDE 2% HCL OPHTHALMIC SOLUTION 10 ML BOTTLE OU SCH ×2 (09:51→23:08)
[2017-01-20] MEDS: TIMOLOL 0.5% OPHTHALMIC SOL 5 ML BOTTLE OU SCH ×2 (09:51→23:07)
[2017-01-20] MEDS: VANCOMYCIN 1,250 MG in DEXTROSE 5%-WATER - 250 ML IVPB SCH (15:55)
--- NOTE | 2017-01-20 21:27 | PN ---
Progress Note, Physician History of Present Illness: doing well no issues patient for operating room tomorrow - Current Medication List Current Medications: Active Medications Acetaminophen (Tylenol -) 650 mg PO Q4H PRN PRN Reason: PAIN Last Admin: 01/20/17 02:31 Dose: 650 mg Amlodipine Besylate (Norvasc -) 10 mg PO DAILY [facility] Last Admin: 01/20/17 09:37 Dose: 10 mg Brimonidine Tartrate (Alphagan P 0.1% -) 1 drop OU BID [facility] Last Admin: 01/20/17 09:46 Dose: 1 drop Clopidogrel Bisulfate (Plavix -) 75 mg PO DAILY [facility] Last Admin: 01/20/17 09:38 Dose: 75 mg Docusate Sodium (Colace -) 100 mg PO BID [facility] Last Admin: 01/20/17 09:38 Dose: 100 mg Donepezil HCl (Aricept -) 5 mg PO DAILY [facility] Last Admin: 01/20/17 09:38 Dose: 5 mg Dorzolamide HCl (Trusopt 2%) 1 drop OU BID [facility] Last Admin: 01/20/17 09:51 Dose: 1 drop Gabapentin (Neurontin -) 300 mg PO BID [facility] Last Admin: 01/20/17 09:38 Dose: 300 mg Heparin Sodium (Porcine) (Heparin -) 5,000 unit SQ BID [facility] Last Admin: 01/20/17 09:38 Dose: 5,000 unit Ampicillin Sodium/Sulbactam (Sodium 3 gm/ Sodium Chloride) 100 mls @ 200 mls/ hr IVPB Q8H-IV [facility] Last Admin: 01/20/17 18:11 Dose: 200 mls/hr Vancomycin HCl 1,250 mg/ (Dextrose) 250 mls @ 125 mls/hr IVPB DAILY@1600 [facility] PRN Reason: Protocol Last Admin: 01/20/17 15:55 Dose: 125 mls/hr Insulin Aspart (Novolog Vial Sliding Scale -) 1 vial SQ ACHS [facility] PRN Reason: Protocol Last Admin: 01/20/17 16:39 Dose: Not Given Insulin Aspart (Novolog Mix 70/30 Vial) 25 units SQ BIDAC [facility] Last Admin: 01/20/17 16:40 Dose: 25 units Latanoprost (Xalatan 0.005% Eye Drops -) 1 drop OU HS [facility] Last Admin: 01/19/17 22:40 Dose: 1 drp Memantine (Namenda -) 10 mg PO BID [facility] Last Admin: 01/20/17 09:38 Dose: 10 mg Metoprolol Succinate (Toprol Xl -) 100 mg PO DAILY [facility] Last Admin: 01/20/17 09:38 Dose: 100 mg Mirtazapine (Remeron -) [address] [facility] Last Admin: 01/19/17 22:38 Dose: 15 mg Quetiapine Fumarate (Seroquel -) [address] [facility] Last Admin: 01/19/17 22:38 Dose: 50 mg Tamsulosin HCl (Flomax -) 0.4 mg PO DAILY@0830 [facility] Last Admin: 01/20/17 08:34 Dose: 0.4 mg Timolol Maleate (Timoptic 0.5%) 1 drop OU BID [facility] Last Admin: 01/20/17 09:51 Dose: 1 drop - Objective Vital Signs: Vital Signs Temperature 99.4 F 01/20/17 18:05 Pulse Rate 60 01/20/17 18:05 Respiratory Rate 20 01/20/17 18:05 Blood Pressure 144/72 01/20/17 18:05 O2 Sat by Pulse Oximetry (%) 97 01/20/17 09:00 Constitutional: Yes: No Distress, Calm Cardiovascular: Yes: Regular Rate and Rhythm Respiratory: Yes: Regular, CTA Bilaterally Gastrointestinal: Yes: Normal Bowel Sounds, Soft Musculoskeletal: Yes: Other Extremities: Yes: Other Integumentary: Yes: Erythema, Other Wound/Incision: Yes: Dressing Dry and Intact, Other (gangrene of the toe) Neurological: Yes: Alert, Oriented Psychiatric: Yes: Alert, Oriented Labs: CBC, BMP 01/16/17 06:30 01/16/17 06:30 INR, PTT INR 1.21 (0.82-1.09) H 01/15/17 12:20 Assessment/Plan cellulitis of the left foot 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
[2017-01-20] MEDS: QUEtiapine FUMARATE 25 MG TABLET (FP) PO SCH (23:04)
[2017-01-20] MEDS: MIRTAZAPINE 15 MG TABLET (FP) PO SCH (23:05)
[2017-01-20] MEDS: LATANOPROST 0.005% OPHTH SOLN 2.5ML BOTTLE OU SCH (23:08)
[2017-01-21] MEDS ORDERED: PT OWN MED DRAWER 7, Y5N ONE ×5 (02:19→22:57)
[2017-01-21] MEDS: AMPICILLIN NA/SULBACTAM NA 3 GM in SODIUM CHLORIDE 100 ML IVPB SCH ×4 (02:43→18:43)
[2017-01-21] MEDS: INSULIN (NOVOLOG MIX 70/30) 100 UNITS/ML MDV SQ SCH ×2 (06:17→17:44)
[2017-01-21] MEDS: INSULIN SLIDING SCALE (NOVOLOG) 1 VIAL SQ SCH ×4 (06:18→23:21)
[2017-01-21 08:29] LABS: BASOPHIL 0.6 % (0-2.0); EOSINOPHIL 3.2 % (0-4.5); MCH 24.8 pg (25.7-33.7); MCHC 32.5 g/dl (32.0-35.9); MEAN CELL VOLUME 76.2 fl (80-96); MEAN PLT VOLUME 8.3 fl (7.5-11.1); NEUTROPHILS 64.9 % (42.8-82.8); PLATELET COUNT 387 K/MM3 (134-434); RDW 16.4 % (11.9-15.9); WHITE BLOOD COUNT 9.2 K/mm3 (4.0-10.0)
[2017-01-21] MEDS: TAMSULOSIN HCL 0.4 MG CAP.ER.24H (FP) PO SCH ×2 (08:31→13:28)
[2017-01-21 09:03] LABS: ALBUMIN 2.9 g/dl (3.4-5.0); ANION GAP 9 (8-16); CALCIUM 8.8 mg/dL (8.5-10.1); CO2 31 mmol/L (21-32); GLUCOSE,RANDOM 107 mg/dL (74-106)
[2017-01-21 09:07] LABS: ALK PHOS 102 U/L (45-117); BILIRUBIN,TOTAL 0.5 mg/dL (0.2-1.0); COCKROFT - GAULT 60.48; CREATININE 1.1 mg/dL (0.7-1.3); SGOT/AST 51 U/L (15-37); SGPT/ALT 91 U/L (12-78)
--- NOTE | 2017-01-21 09:22 | PN ---
Progress Note, Physician Chief Complaint: scheduled surgery this AM - Current Medication List Current Medications: Active Medications Acetaminophen (Tylenol -) 650 mg PO Q4H PRN PRN Reason: PAIN Last Admin: 01/20/17 02:31 Dose: 650 mg Amlodipine Besylate (Norvasc -) 10 mg PO DAILY [facility] Last Admin: 01/20/17 09:37 Dose: 10 mg Brimonidine Tartrate (Alphagan P 0.1% -) 1 drop OU BID [facility] Last Admin: 01/20/17 23:07 Dose: 1 drop Clopidogrel Bisulfate (Plavix -) 75 mg PO DAILY [facility] Last Admin: 01/20/17 09:38 Dose: 75 mg Docusate Sodium (Colace -) 100 mg PO BID [facility] Last Admin: 01/20/17 23:04 Dose: 100 mg Donepezil HCl (Aricept -) 5 mg PO DAILY [facility] Last Admin: 01/20/17 09:38 Dose: 5 mg Dorzolamide HCl (Trusopt 2%) 1 drop OU BID [facility] Last Admin: 01/20/17 23:08 Dose: 1 drop Gabapentin (Neurontin -) 300 mg PO BID [facility] Last Admin: 01/20/17 23:05 Dose: 300 mg Heparin Sodium (Porcine) (Heparin -) 5,000 unit SQ BID [facility] Last Admin: 01/20/17 09:38 Dose: 5,000 unit Ampicillin Sodium/Sulbactam (Sodium 3 gm/ Sodium Chloride) 100 mls @ 200 mls/ hr IVPB Q8H-IV [facility] Last Admin: 01/21/17 02:43 Dose: 200 mls/hr Vancomycin HCl 1,250 mg/ (Dextrose) 250 mls @ 125 mls/hr IVPB DAILY@1600 [facility] PRN Reason: Protocol Last Admin: 01/20/17 15:55 Dose: 125 mls/hr Insulin Aspart (Novolog Vial Sliding Scale -) 1 vial SQ ACHS [facility] PRN Reason: Protocol Last Admin: 01/21/17 06:18 Dose: Not Given Insulin Aspart (Novolog Mix 70/30 Vial) 25 units SQ BIDAC [facility] Last Admin: 01/21/17 06:17 Dose: Not Given Latanoprost (Xalatan 0.005% Eye Drops -) 1 drop OU HS [facility] Last Admin: 01/20/17 23:08 Dose: 1 drp Memantine (Namenda -) 10 mg PO BID [facility] Last Admin: 01/20/17 23:04 Dose: 10 mg Metoprolol Succinate (Toprol Xl -) 100 mg PO DAILY [facility] Last Admin: 01/20/17 09:38 Dose: 100 mg Mirtazapine (Remeron -) 15 mg PO [facility] Last Admin: 01/20/17 23:05 Dose: 15 mg Quetiapine Fumarate (Seroquel -) 50 mg PO [facility] Last Admin: 01/20/17 23:04 Dose: 50 mg Tamsulosin HCl (Flomax -) 0.4 mg PO DAILY@0830 [facility] Last Admin: 01/21/17 08:31 Dose: Not Given Timolol Maleate (Timoptic 0.5%) 1 drop OU BID [facility] Last Admin: 01/20/17 23:07 Dose: 1 drop - Objective Vital Signs: Vital Signs Temperature 99 F 01/21/17 09:00 Pulse Rate 91 H 01/21/17 09:00 Respiratory Rate 18 01/21/17 09:00 Blood Pressure 156/82 01/21/17 09:00 O2 Sat by Pulse Oximetry (%) 98 01/20/17 21:00 Constitutional: Yes: No Distress Eyes: Yes: WNL HENT: Yes: WNL Neck: Yes: WNL Cardiovascular: Yes: WNL Respiratory: Yes: WNL Gastrointestinal: Yes: WNL ...Rectal Exam: Yes: WNL Genitourinary: Yes: WNL Musculoskeletal: Yes: WNL Extremities: Yes: WNL Edema: No Peripheral Pulses WNL: Yes Psychiatric: Yes: Alert Labs: CBC, BMP 01/21/17 05:45 01/21/17 05:45 INR, PTT INR 1.21 (0.82-1.09) H 01/15/17 12:20 Assessment/Plan cleared for surgery
[2017-01-21] MEDS ORDERED: ADENOSINE 6 MG/2 ML VIAL IVPUSH ONE (09:53)
[2017-01-21] MEDS ORDERED: PROPOFOL 20 ML ONE ×2 (09:55)
[2017-01-21] MEDS ORDERED: LIDOCAINE HCL/PF 2% SDV 5ML VIAL ONE (09:57)
[2017-01-21] MEDS ORDERED: ceFAZolin SODIUM 1 GM VIAL ONE (10:01)
[2017-01-21] MEDS ORDERED: LIDOCAINE HCL 1%, 10 MG/ML (50 mL VIAL) IJ ONE (10:04)
[2017-01-21] MEDS ORDERED: BACITRACIN 30 GM TUBE TOPICAL OINTMENT TP ONE (10:20)
[2017-01-21] MEDS ORDERED: BACITRACIN 30 GM TUBE TOPICAL OINTMENT ONE (10:20)
[2017-01-21] MEDS ORDERED: ACETAMINOPHEN 325 MG TABLET (FP) PO PRN ×3 (10:35→11:20)
[2017-01-21] MEDS: amLODIPine BESYLATE 10 MG TABLET (FP) PO SCH ×2 (10:38→13:15)
[2017-01-21] MEDS: GABAPENTIN 300 MG CAPSULE (FP) PO SCH ×2 (10:38→23:04)
[2017-01-21] MEDS: BRIMONIDINE TARTRATE 0.1% OPHTHALMIC 5 ML BOTTLE OU SCH ×2 (10:38→23:04)
[2017-01-21] MEDS: MEMANTINE HCL 10 MG TABLET (FP) PO SCH ×2 (10:38→23:03)
[2017-01-21] MEDS: DONEPEZIL HCL 5 MG TABLET (FP) PO SCH (10:38)
[2017-01-21] MEDS: DOCUSATE SODIUM 100 MG CAPSULE (FP) PO SCH ×2 (10:38→23:03)
[2017-01-21] MEDS: METOPROLOL SUCCINATE 100 MG TAB.SR.24H (FP) PO SCH ×2 (10:39→13:15)
[2017-01-21] MEDS: DORZOLAMIDE 2% HCL OPHTHALMIC SOLUTION 10 ML BOTTLE OU SCH ×2 (10:39→23:05)
[2017-01-21] MEDS: TIMOLOL 0.5% OPHTHALMIC SOL 5 ML BOTTLE OU SCH ×2 (10:39→23:05)
[2017-01-21] MEDS: CLOPIDOGREL BISULFATE 75 MG TABLET (FP) PO SCH (10:39)
[2017-01-21] MEDS ORDERED: LACTATED RINGERS SOLUTION 1,000 ML IV SCH ×2 (10:45→11:20)
--- NOTE | 2017-01-21 10:45 | OP ---
Operative Note - Note: Operative Date: 01/21/17 Pre-Operative Diagnosis: Left third toe gangrene Operation: Left third toe amputation Findings: Left third toe amputation. Pus found in wound. Took metatarsal head out as well. Wound is clean, and will let it drain. Will HBO and vac dressing for closure Post-Operative Diagnosis: Same as Pre-op Surgeon: Jey Hernandez Anesthesia: Fractional Estimated Blood Loss (mls): 20 Operative Report Dictated: Yes
--- NOTE | 2017-01-21 10:54 | PN ---
Progress Note (short form) - Note Progress Note: Vascular Surgery Left third toe amputation Pus found in wound. Wound left open. metatarsal head taken off. Wound debrided and clean. Spoke to family at length. Will place VAC dressing to wound. Family will take pt home at some point. Will need VNS for vac dressings 3x a week. This way pt will also be eligible for HBO as outpt. Will follow Jey Hernandez DO
--- NOTE | 2017-01-21 14:15 | OP ---
DATE OF OPERATION: 01/21/2017 PREOPERATIVE DIAGNOSIS: Left 3rd toe gangrene. POSTOPERATIVE DIAGNOSIS: Left 3rd toe gangrene. PROCEDURE: Left 3rd toe amputation. SURGEON: Jey Moscoso DO ANESTHESIA: Fractional. BLOOD LOSS: 20 mL. The patient is an 81-year-old male who came in with left 3rd toe gangrene. He then had angioplasty, where we restored his dorsalis pedis pulse and now he needs to have a toe amputation. The patient was consented for the procedure, understanding all risks, benefits, alternatives, and was taken to the operating room. Once in the operating room, he was laid on the operating table in supine manner. The area of the left foot was prepped and draped in sterile surgical manner. We then injected 15 mL of lidocaine 1% around the 3rd toe to give the patient a block. We then used a number 15 blade and made an elliptical incision around the toe and took it all the way down to bone. We then went ahead and used a bone cutter and the toe was removed. We then used a rongeur and took the rest of the bone back and removed the metatarsal head. Using Metzenbaum scissors, we were able to debride away the necrotic tissue in the wound. During the amputation, pus was found in the wound and it was decided that we would not close the wound at this point. The wound was then well irrigated and the wound was then packed with a saline moist gauze with bacitracin on it. Then 4 x 4s, Kerlix was placed. The patient tolerated this procedure, no complication. Patient transferred back in a stable condition. JEY MOSCOSO DO [id number]
[2017-01-21] MEDS ORDERED: VANCOMYCIN 1,250 MG in DEXTROSE 5%-WATER - 250 ML IVPB SCH (16:00)
--- NOTE | 2017-01-21 17:42 | PN ---
Progress Note, Physician History of Present Illness: patient operated left 3rd toe amputated pus found will ahve to see if cx was send operative note noted - Current Medication List Current Medications: Active Medications Acetaminophen (Tylenol -) 650 mg PO Q4H PRN PRN Reason: PAIN Amlodipine Besylate (Norvasc -) 10 mg PO DAILY [facility] Last Admin: 01/21/17 13:15 Dose: 10 mg Brimonidine Tartrate (Alphagan P 0.1% -) 1 drop OU BID [facility] Clopidogrel Bisulfate (Plavix -) 75 mg PO DAILY [facility] Docusate Sodium (Colace -) 100 mg PO BID [facility] Donepezil HCl (Aricept -) 5 mg PO DAILY [facility] Dorzolamide HCl (Trusopt 2%) 1 drop OU BID [facility] Gabapentin (Neurontin -) 300 mg PO BID [facility] Heparin Sodium (Porcine) (Heparin -) 5,000 unit SQ BID [facility] Ampicillin Sodium/Sulbactam (Sodium 3 gm/ Sodium Chloride) 100 mls @ 200 mls/ hr IVPB Q8H-IV [facility] Vancomycin HCl 1,250 mg/ (Dextrose) 250 mls @ 125 mls/hr IVPB DAILY@1600 [facility] PRN Reason: Protocol Last Admin: 01/21/17 15:28 Dose: 125 mls/hr Insulin Aspart (Novolog Vial Sliding Scale -) 1 vial SQ ACHS [facility] PRN Reason: Protocol Insulin Aspart (Novolog Mix 70/30 Vial) 25 units SQ BIDAC [facility] Latanoprost (Xalatan 0.005% Eye Drops -) 1 drop OU HS [facility] Memantine (Namenda -) 10 mg PO BID [facility] Metoprolol Succinate (Toprol Xl -) 100 mg PO DAILY [facility] Last Admin: 01/21/17 13:15 Dose: 100 mg Mirtazapine (Remeron -) 15 mg PO HS [facility] Quetiapine Fumarate (Seroquel -) 50 mg PO HS [facility] Tamsulosin HCl (Flomax -) 0.4 mg PO DAILY@0830 [facility] Timolol Maleate (Timoptic 0.5%) 1 drop OU BID [facility] - Objective Vital Signs: Vital Signs Temperature 98.5 F 01/21/17 14:57 Pulse Rate 60 01/21/17 14:57 Respiratory Rate 20 01/21/17 14:57 Blood Pressure 162/82 01/21/17 14:57 O2 Sat by Pulse Oximetry (%) 98 04/11/17 11:30 Constitutional: Yes: No Distress, Calm Cardiovascular: Yes: Regular Rate and Rhythm Respiratory: Yes: Regular, CTA Bilaterally Gastrointestinal: Yes: Normal Bowel Sounds, Soft Musculoskeletal: Yes: WNL Extremities: Yes: WNL Wound/Incision: Yes: Dressing Dry and Intact Neurological: Yes: Alert, Oriented Psychiatric: Yes: Alert, Oriented Labs: CBC, BMP 01/21/17 05:45 01/21/17 05:45 INR, PTT INR 1.21 (0.82-1.09) H 01/15/17 12:20 Assessment/Plan cellulitis of the left foot gangrene of the 3rd left toe r/o osteo dm pvd p plan continue abx amputation of the toe done will probably stop vanco rest continue current mgmt
[2017-01-21] MEDS: QUEtiapine FUMARATE 25 MG TABLET (FP) PO SCH (23:03)
[2017-01-21] MEDS: MIRTAZAPINE 15 MG TABLET (FP) PO SCH (23:03)
[2017-01-21] MEDS: LATANOPROST 0.005% OPHTH SOLN 2.5ML BOTTLE OU SCH (23:05)
[2017-01-21] MEDS: HEPARIN NA (PORCINE) 5,000 UNITS/ML 1ML VIAL SQ SCH (23:06)
[2017-01-22] MEDS ORDERED: PT OWN MED DRAWER 7, Y5N ONE ×2 (01:14→22:02)
[2017-01-22] MEDS: AMPICILLIN NA/SULBACTAM NA 3 GM in SODIUM CHLORIDE 100 ML IVPB SCH ×2 (02:21→10:39)
[2017-01-22] MEDS: INSULIN SLIDING SCALE (NOVOLOG) 1 VIAL SQ SCH ×4 (06:31→22:20)
[2017-01-22] MEDS: INSULIN (NOVOLOG MIX 70/30) 100 UNITS/ML MDV SQ SCH ×2 (08:15→17:39)
[2017-01-22] MEDS ORDERED: INSULIN (NOVOLOG) ASPART 100 UNITS/ML 10ML VIAL ONE (08:17)
[2017-01-22] MEDS ORDERED: INSULIN (NOVOLOG MIX 70/30) 100 UNITS/ML MDV SQ ONE (08:17)
[2017-01-22] MEDS: TAMSULOSIN HCL 0.4 MG CAP.ER.24H (FP) PO SCH (08:55)
--- NOTE | 2017-01-22 09:13 | PN ---
Progress Note, Physician Chief Complaint: Had fever History of Present Illness: S/P amputation of Lt 3rd toe Spiked fever 101,on IV antibiotics - Current Medication List Current Medications: Active Medications Acetaminophen (Tylenol -) 650 mg PO Q4H PRN PRN Reason: PAIN Last Admin: 01/21/17 23:12 Dose: 650 mg Amlodipine Besylate (Norvasc -) 10 mg PO DAILY [facility] Last Admin: 01/21/17 13:15 Dose: 10 mg Brimonidine Tartrate (Alphagan P 0.1% -) 1 drop OU BID [facility] Last Admin: 01/21/17 23:04 Dose: 1 drop Clopidogrel Bisulfate (Plavix -) 75 mg PO DAILY [facility] Docusate Sodium (Colace -) 100 mg PO BID [facility] Last Admin: 01/21/17 23:03 Dose: 100 mg Donepezil HCl (Aricept -) 5 mg PO DAILY [facility] Dorzolamide HCl (Trusopt 2%) 1 drop OU BID [facility] Last Admin: 01/21/17 23:05 Dose: 1 drop Gabapentin (Neurontin -) 300 mg PO BID [facility] Last Admin: 01/21/17 23:04 Dose: 300 mg Heparin Sodium (Porcine) (Heparin -) 5,000 unit SQ BID [facility] Last Admin: 01/21/17 23:06 Dose: 5,000 unit Ampicillin Sodium/Sulbactam (Sodium 3 gm/ Sodium Chloride) 100 mls @ 200 mls/ hr IVPB Q8H-IV [facility] Last Admin: 01/22/17 02:21 Dose: 200 mls/hr Vancomycin HCl 1,250 mg/ (Dextrose) 250 mls @ 125 mls/hr IVPB DAILY@1600 [facility] PRN Reason: Protocol Last Admin: 01/21/17 15:28 Dose: 125 mls/hr Insulin Aspart (Novolog Vial Sliding Scale -) 1 vial SQ ACHS [facility] PRN Reason: Protocol Last Admin: 01/22/17 06:31 Dose: Not Given Insulin Aspart (Novolog Mix 70/30 Vial) 25 units SQ BIDAC [facility] Last Admin: 01/22/17 08:15 Dose: 25 units Latanoprost (Xalatan 0.005% Eye Drops -) 1 drop OU HS [facility] Last Admin: 01/21/17 23:05 Dose: 1 drop Memantine (Namenda -) 10 mg PO BID [facility] Last Admin: 01/21/17 23:03 Dose: 10 mg Metoprolol Succinate (Toprol Xl -) 100 mg PO DAILY [facility] Last Admin: 01/21/17 13:15 Dose: 100 mg Mirtazapine (Remeron -) 15 mg PO HS [facility] Last Admin: 01/21/17 23:03 Dose: 15 mg Quetiapine Fumarate (Seroquel -) 50 mg PO HS [facility] Last Admin: 01/21/17 23:03 Dose: 50 mg Tamsulosin HCl (Flomax -) 0.4 mg PO DAILY@0830 [facility] Last Admin: 01/22/17 08:55 Dose: 0.4 mg Timolol Maleate (Timoptic 0.5%) 1 drop OU BID [facility] Last Admin: 01/21/17 23:05 Dose: 1 drop - Objective Vital Signs: Vital Signs Temperature 98.7 F 01/22/17 06:00 Pulse Rate 57 L 01/22/17 06:00 Respiratory Rate 18 01/22/17 06:00 Blood Pressure 100/47 01/22/17 06:00 O2 Sat by Pulse Oximetry (%) 98 01/21/17 21:00 Constitutional: Yes: Mild Distress Eyes: Yes: WNL HENT: Yes: WNL Neck: Yes: WNL Cardiovascular: Yes: WNL Respiratory: Yes: WNL Gastrointestinal: Yes: WNL ...Rectal Exam: Yes: Deferred Genitourinary: Yes: WNL Wound/Incision: Yes: Clean/Dry Neurological: Yes: Alert Labs: CBC, BMP 01/21/17 05:45 01/21/17 05:45 INR, PTT INR 1.21 (0.82-1.09) H 01/15/17 12:20 Assessment/Plan Continue same trt
[2017-01-22] MEDS ORDERED: amLODIPine BESYLATE 10 MG TABLET (FP) PO SCH (10:00)
[2017-01-22] MEDS ORDERED: METOPROLOL SUCCINATE 100 MG TAB.SR.24H (FP) PO SCH (10:00)
--- NOTE | 2017-01-22 10:22 | PN ---
Progress Note (short form) - Note Progress Note: 81M POD1 s/p left toe amputation doing well. AVSS, pt reports no anesthetic complications, pain is well controlled.
[2017-01-22] MEDS: BRIMONIDINE TARTRATE 0.1% OPHTHALMIC 5 ML BOTTLE OU SCH ×2 (10:34→22:14)
[2017-01-22] MEDS: DONEPEZIL HCL 5 MG TABLET (FP) PO SCH (10:35)
[2017-01-22] MEDS: DOCUSATE SODIUM 100 MG CAPSULE (FP) PO SCH ×2 (10:35→22:10)
[2017-01-22] MEDS: HEPARIN NA (PORCINE) 5,000 UNITS/ML 1ML VIAL SQ SCH ×2 (10:35→22:10)
[2017-01-22] MEDS: MEMANTINE HCL 10 MG TABLET (FP) PO SCH ×2 (10:36→22:10)
[2017-01-22] MEDS: GABAPENTIN 300 MG CAPSULE (FP) PO SCH ×2 (10:36→22:09)
[2017-01-22] MEDS: CLOPIDOGREL BISULFATE 75 MG TABLET (FP) PO SCH (10:37)
[2017-01-22] MEDS: amLODIPine BESYLATE 10 MG TABLET (FP) PO SCH (10:37)
[2017-01-22] MEDS: METOPROLOL SUCCINATE 100 MG TAB.SR.24H (FP) PO SCH (10:38)
[2017-01-22] MEDS: TIMOLOL 0.5% OPHTHALMIC SOL 5 ML BOTTLE OU SCH ×2 (10:38→22:14)
[2017-01-22] MEDS: DORZOLAMIDE 2% HCL OPHTHALMIC SOLUTION 10 ML BOTTLE OU SCH ×2 (10:39→22:14)
--- NOTE | 2017-01-22 11:12 | PN ---
Progress Note (short form) - Note Progress Note: VAscular Surgery Pt seen and examined. Doing well. S/P left third toe amputation. Will place vac to wound. Entire toe and metatarsal head removed. So osteo should be removed. Can follow path. Jey Hernandez DO
--- NOTE | 2017-01-22 13:08 | PN ---
Progress Note, Physician History of Present Illness: patient operated left 3rd toe amputated d/w surgery according to surgery clean margins - Current Medication List Current Medications: Active Medications Acetaminophen (Tylenol -) 650 mg PO Q4H PRN PRN Reason: PAIN Last Admin: 01/21/17 23:12 Dose: 650 mg Amlodipine Besylate (Norvasc -) 10 mg PO DAILY [facility] Last Admin: 01/22/17 10:37 Dose: 10 mg Brimonidine Tartrate (Alphagan P 0.1% -) 1 drop OU BID [facility] Last Admin: 01/22/17 10:34 Dose: 1 drop Clopidogrel Bisulfate (Plavix -) 75 mg PO DAILY [facility] Last Admin: 01/22/17 10:37 Dose: 75 mg Docusate Sodium (Colace -) 100 mg PO BID [facility] Last Admin: 01/22/17 10:35 Dose: 100 mg Donepezil HCl (Aricept -) 5 mg PO DAILY [facility] Last Admin: 01/22/17 10:35 Dose: 5 mg Dorzolamide HCl (Trusopt 2%) 1 drop OU BID [facility] Last Admin: 01/22/17 10:39 Dose: 1 drop Gabapentin (Neurontin -) 300 mg PO BID [facility] Last Admin: 01/22/17 10:36 Dose: 300 mg Heparin Sodium (Porcine) (Heparin -) 5,000 unit SQ BID [facility] Last Admin: 01/22/17 10:35 Dose: 5,000 unit Ampicillin Sodium/Sulbactam (Sodium 3 gm/ Sodium Chloride) 100 mls @ 200 mls/ hr IVPB Q8H-IV [facility] Last Admin: 01/22/17 10:39 Dose: 200 mls/hr Vancomycin HCl 1,250 mg/ (Dextrose) 250 mls @ 125 mls/hr IVPB DAILY@1600 [facility] PRN Reason: Protocol Last Admin: 01/21/17 15:28 Dose: 125 mls/hr Insulin Aspart (Novolog Vial Sliding Scale -) 1 vial SQ ACHS [facility] PRN Reason: Protocol Last Admin: 01/22/17 12:12 Dose: 5 units Insulin Aspart (Novolog Mix 70/30 Vial) 25 units SQ BIDAC [facility] Last Admin: 01/22/17 08:15 Dose: 25 units Latanoprost (Xalatan 0.005% Eye Drops -) 1 drop OU HS [facility] Last Admin: 01/21/17 23:05 Dose: 1 drop Memantine (Namenda -) 10 mg PO BID [facility] Last Admin: 01/22/17 10:36 Dose: 10 mg Metoprolol Succinate (Toprol Xl -) 100 mg PO DAILY [facility] Last Admin: 01/22/17 10:38 Dose: 100 mg Mirtazapine (Remeron -) 15 mg PO [facility] Last Admin: 01/21/17 23:03 Dose: 15 mg Quetiapine Fumarate (Seroquel -) 50 mg PO [facility] Last Admin: 01/21/17 23:03 Dose: 50 mg Tamsulosin HCl (Flomax -) 0.4 mg PO DAILY@0830 [facility] Last Admin: 01/22/17 08:55 Dose: 0.4 mg Timolol Maleate (Timoptic 0.5%) 1 drop OU BID [facility] Last Admin: 01/22/17 10:38 Dose: 1 drop - Objective Vital Signs: Vital Signs Temperature 98.9 F 01/22/17 09:38 Pulse Rate 64 01/22/17 09:38 Respiratory Rate 18 01/22/17 09:38 Blood Pressure 135/66 01/22/17 09:38 O2 Sat by Pulse Oximetry (%) 98 01/21/17 21:00 Constitutional: Yes: No Distress, Calm Cardiovascular: Yes: Regular Rate and Rhythm Respiratory: Yes: Regular, CTA Bilaterally Gastrointestinal: Yes: Normal Bowel Sounds, Soft Musculoskeletal: Yes: WNL Extremities: Yes: Other Integumentary: Yes: WNL Wound/Incision: Yes: Other (wound vac present) Neurological: Yes: Alert, Oriented Psychiatric: Yes: Alert Labs: CBC, BMP 01/21/17 05:45 01/21/17 05:45 INR, PTT INR 1.21 (0.82-1.09) H 01/15/17 12:20 Assessment/Plan cellulitis of the left foot gangrene of the 3rd left toe r/o osteo dm pvd p plan continue abx amputation of the toe done can switch to augmentin for few days
--- NOTE | 2017-01-22 14:18 | PATH ---
Surgical Pathology Report Patient Name: ADELA URIAS [facility]. Rec. #: [id number] /Age/Gender: 1935 (Age: 81) / M Account: [id number] Location: [address] [place] [address]/[facility] Taken: 01/21/2017 Received: 01/21/2017 Reported: 01/22/2017 Physicians: Jey Presley M.D. Specimen(s) Received LEFT THIRD TOE Clinical History Gangrenous left third toe Final Diagnosis THIRD TOE, LEFT, AMPUTATION: SKIN, UNDERLYING SOFT TISSUE AND BONE WITH GANGRENOUS NECROSIS. GANGRENOUS NECROSIS INVOLVES SKIN AND SOFT TISSUE MARGIN. BONE AT RESECTION MARGIN WITH FOCAL NECROSIS AND ASSOCIATED ACUTE OSTEOMYELITIS. Electronically Signed Luis Daniel Moon M.D. Gross Description Received in formalin labeled "left third toe" is a 4.0 x 1.7 x 1.6 cm toe amputation specimen. The entire epidermal surface displays a black naranjo, gangrenous lesion. The lesion involves the skin and soft tissue margin as well as the underlying bone. Slide Fastener Repairer sections are submitted in 3 cassettes as follows: 1-lesion with underlying bone, following decalcification; 2-bone margin, following decalcification; 3-skin and soft tissue margin. /01/21/201701/21/2017
--- NOTE | 2017-01-22 14:32 | PROC ---
Procedure Note Procedure: POD #1 s/p left foot, 3rd toe amp Area cleansed. Sliver backed microbial sponge placed within wound borders. Occlusive dressing applied. Using black sponge, made a bridge to dorsum of foot. Another occlusive dressing applied. Suction disc applied. Therapy set to 125mmHg Patient tolerated procedure well. Dressing changes ordered for M-W-F. Dr. Hernandez will schedule patient for out-patient HBO.
[2017-01-22] MEDS: AMOX TR/POT CLAV 875MG/125MG TABLETS (FP) PO SCH (17:38)
[2017-01-22] MEDS: QUEtiapine FUMARATE 25 MG TABLET (FP) PO SCH (22:10)
[2017-01-22] MEDS: MIRTAZAPINE 15 MG TABLET (FP) PO SCH (22:10)
[2017-01-22] MEDS: LATANOPROST 0.005% OPHTH SOLN 2.5ML BOTTLE OU SCH (22:14)
[2017-01-23] MEDS ORDERED: INSULIN (NOVOLOG MIX 70/30) 100 UNITS/ML MDV SQ ONE ×2 (06:51→07:02)
[2017-01-23] MEDS: INSULIN SLIDING SCALE (NOVOLOG) 1 VIAL SQ SCH ×3 (06:55→16:43)
[2017-01-23] MEDS: INSULIN (NOVOLOG MIX 70/30) 100 UNITS/ML MDV SQ SCH ×2 (06:55→17:36)
[2017-01-23] MEDS ORDERED: INSULIN (NOVOLOG) ASPART 100 UNITS/ML 10ML VIAL ONE (07:02)
[2017-01-23] MEDS ORDERED: PT OWN MED DRAWER 7, Y5N ONE ×4 (07:02→17:47)
[2017-01-23] MEDS ORDERED: INSULIN DETEMIR 100 UNITS/ML MDV SQ ONE (07:02)
[2017-01-23] MEDS: amLODIPine BESYLATE 10 MG TABLET (FP) PO SCH (09:02)
[2017-01-23] MEDS: CLOPIDOGREL BISULFATE 75 MG TABLET (FP) PO SCH (09:02)
[2017-01-23] MEDS: AMOX TR/POT CLAV 875MG/125MG TABLETS (FP) PO SCH ×2 (09:02→17:36)
[2017-01-23] MEDS: TAMSULOSIN HCL 0.4 MG CAP.ER.24H (FP) PO SCH (09:02)
[2017-01-23] MEDS: GABAPENTIN 300 MG CAPSULE (FP) PO SCH (09:02)
[2017-01-23] MEDS: DONEPEZIL HCL 5 MG TABLET (FP) PO SCH (09:02)
[2017-01-23] MEDS: HEPARIN NA (PORCINE) 5,000 UNITS/ML 1ML VIAL SQ SCH (09:03)
[2017-01-23] MEDS: DORZOLAMIDE 2% HCL OPHTHALMIC SOLUTION 10 ML BOTTLE OU SCH (09:03)
[2017-01-23] MEDS: DOCUSATE SODIUM 100 MG CAPSULE (FP) PO SCH (09:03)
[2017-01-23] MEDS: TIMOLOL 0.5% OPHTHALMIC SOL 5 ML BOTTLE OU SCH (09:03)
[2017-01-23] MEDS: METOPROLOL SUCCINATE 100 MG TAB.SR.24H (FP) PO SCH (09:03)
[2017-01-23] MEDS: MEMANTINE HCL 10 MG TABLET (FP) PO SCH (09:03)
[2017-01-23] MEDS: BRIMONIDINE TARTRATE 0.1% OPHTHALMIC 5 ML BOTTLE OU SCH (09:04)
--- NOTE | 2017-01-23 09:46 | DS ---
Physical Examination Vital Signs: Vital Signs Temperature 98.4 F 01/23/17 06:00 Pulse Rate 58 L 01/23/17 06:00 Respiratory Rate 18 01/23/17 06:00 Blood Pressure 148/72 01/23/17 06:00 O2 Sat by Pulse Oximetry (%) 98 01/22/17 21:00 Findings/Remarks: S/P amputation Lt 3rd toe,wound clean Case discussed with Dr Hernandez ,advised DC home on IVac Constitutional: Yes: No Distress Eyes: Yes: WNL HENT: Yes: WNL Neck: Yes: WNL Cardiovascular: Yes: WNL Respiratory: Yes: WNL Gastrointestinal: Yes: WNL ...Rectal Exam: Yes: Deferred Renal/: Yes: WNL Breast(s): Yes: WNL Musculoskeletal: Yes: WNL Edema: No Peripheral Pulses WNL: Yes Neurological: Yes: Alert Psychiatric: Yes: Alert Labs: CBC, BMP 01/21/17 05:45 01/21/17 05:45 Discharge Summary Reason For Visit: CELLULITIS IN DIABETIC FOOT Current Active Problems Cellulitis in diabetic foot (Acute) Condition: Fair - Instructions Referrals: Darron Presley MD [Primary Care Provider] - - Home Medications Comprehensive Discharge Medication List: Ambulatory Orders Amlodipine Besylate [Norvasc -] 10 mg PO DAILY 01/12/17 Amox-Tr/K Cl [Augmentin - 875Mg Tablet] 1 tab PO BID 01/12/17 Donepezil HCl 23 mg PO DAILY 01/12/17 Gabapentin [Neurontin -] 300 mg PO BID 01/12/17 Hydrochlorothiazide [Hctz -] 25 mg PO ASDIR 01/12/17 Insulin Lispro Protamin/Lispro [Humalog Mix 75-25 Kwikpen] 27 unit SQ AM Insulin Lispro Protamin/Lispro [Humalog Mix 75-25 Kwikpen] 27 unit SQ HS Memantine HCl [Namenda -] 10 mg PO BID 01/12/17 Metformin HCl 500 mg PO BID 01/12/17 Metoprolol Succinate [Toprol Xl] 100 mg PO DAILY 01/12/17 Mirtazapine [Remeron -] 15 mg PO HS 01/12/17 Quetiapine Fumarate [Seroquel -] 50 mg PO HS 01/12/17 Silver Sulfadiazine 1% Top Cr [Silvadene -] 1 applic TP DAILY 01/12/17 Tamsulosin HCl [Flomax] 0.4 mg PO DAILY 01/12/17 Valsartan [Diovan] 160 mg PO BID 01/12/17 Bimatoprost [Lumigan] 1 drop OU HS 01/14/17 Brimonidine Tartrate [Alphagan P 0.1% -] 1 drop OU BID 01/14/17 Dorzolamide HCl/Timolol Maleat [Cosopt Eye Drops] 1 drop OU BID 01/14/17
--- NOTE | 2017-01-23 15:06 | PN ---
Progress Note, Physician History of Present Illness: stable no issues wound vac working well - Current Medication List Current Medications: Active Medications Acetaminophen (Tylenol -) 650 mg PO Q4H PRN PRN Reason: PAIN Last Admin: 01/21/17 23:12 Dose: 650 mg Amlodipine Besylate (Norvasc -) 10 mg PO DAILY [facility] Last Admin: 01/23/17 09:02 Dose: 10 mg Amoxicillin/Clavulanate Potassium (Augmentin - 875mg Tablet) 1 tab PO BID@0800, 1730 [facility] Last Admin: 01/23/17 09:02 Dose: 1 tab Brimonidine Tartrate (Alphagan P 0.1% -) 1 drop OU BID [facility] Last Admin: 01/23/17 09:04 Dose: 1 drop Clopidogrel Bisulfate (Plavix -) 75 mg PO DAILY [facility] Last Admin: 01/23/17 09:02 Dose: 75 mg Docusate Sodium (Colace -) 100 mg PO BID [facility] Last Admin: 01/23/17 09:03 Dose: 100 mg Donepezil HCl (Aricept -) 5 mg PO DAILY [facility] Last Admin: 01/23/17 09:02 Dose: 5 mg Dorzolamide HCl (Trusopt 2%) 1 drop OU BID [facility] Last Admin: 01/23/17 09:03 Dose: 1 drop Gabapentin (Neurontin -) 300 mg PO BID [facility] Last Admin: 01/23/17 09:02 Dose: 300 mg Heparin Sodium (Porcine) (Heparin -) 5,000 unit SQ BID [facility] Last Admin: 01/23/17 09:03 Dose: 5,000 unit Insulin Aspart (Novolog Vial Sliding Scale -) 1 vial SQ ACHS [facility] PRN Reason: Protocol Last Admin: 01/23/17 06:55 Dose: Not Given Insulin Aspart (Novolog Mix 70/30 Vial) 25 units SQ BIDAC [facility] Last Admin: 01/23/17 06:55 Dose: 25 units Latanoprost (Xalatan 0.005% Eye Drops -) 1 drop OU HS [facility] Last Admin: 01/22/17 22:14 Dose: 1 drop Memantine (Namenda -) 10 mg PO BID [facility] Last Admin: 01/23/17 09:03 Dose: 10 mg Metoprolol Succinate (Toprol Xl -) 100 mg PO DAILY [facility] Last Admin: 01/23/17 09:03 Dose: 100 mg Mirtazapine (Remeron -) 15 mg PO [facility] Last Admin: 01/22/17 22:10 Dose: 15 mg Quetiapine Fumarate (Seroquel -) 50 mg PO [facility] Last Admin: 01/22/17 22:10 Dose: 50 mg Tamsulosin HCl (Flomax -) 0.4 mg PO DAILY@0830 [facility] Last Admin: 01/23/17 09:02 Dose: 0.4 mg Timolol Maleate (Timoptic 0.5%) 1 drop OU BID [facility] Last Admin: 01/23/17 09:03 Dose: 1 drop - Objective Vital Signs: Vital Signs Temperature 98.4 F 01/23/17 06:00 Pulse Rate 58 L 01/23/17 06:00 Respiratory Rate 18 01/23/17 06:00 Blood Pressure 148/72 01/23/17 06:00 O2 Sat by Pulse Oximetry (%) 98 01/22/17 21:00 Constitutional: Yes: No Distress, Calm Cardiovascular: Yes: Regular Rate and Rhythm Respiratory: Yes: Regular, CTA Bilaterally Gastrointestinal: Yes: Normal Bowel Sounds, Soft Musculoskeletal: Yes: Other Extremities: Yes: Other Integumentary: Yes: WNL Wound/Incision: Yes: Other (wound vac present) Neurological: Yes: Alert, Oriented Psychiatric: Yes: Alert Labs: CBC, BMP 01/21/17 05:45 01/21/17 05:45 INR, PTT INR 1.21 (0.82-1.09) H 01/15/17 12:20 Assessment/Plan cellulitis of the left foot gangrene of the 3rd left toe r/o osteo dm pvd p plan amputation of the toe done augmentin for few days
[2017-01-23 15:16] VITALS: BP 152/65; PULSE 62; TEMP 98.5
== END 2017-01-23 18:31 | disposition home health service (06) | DRG 271 ==
LOC: JER 20:17 → JERBED 01-13 02:50 → UNDOADMIN 01-13 03:00 → JERBED 01-13 03:00 → J5S 01-13 10:17
PROVIDERS: ADMIT Internal Medicine; ATTEND Internal Medicine
PROC: 04CL3ZZ Extirpation of Matter from Left Femoral Artery, Percutaneous Approach (ICD-10-PCS; 2017-01-16)
PROC: 047L3ZZ Dilation of Left Femoral Artery, Percutaneous Approach (ICD-10-PCS; 2017-01-16)
PROC: B41DYZZ Fluoroscopy of Aorta and Bilateral Lower Extremity Arteries using Other Contrast (ICD-10-PCS; 2017-01-16)
PROC: 0Y6U0Z0 Detachment at Left 3rd Toe, Complete, Open Approach (ICD-10-PCS; principal; 2017-01-21 09:30)
DX: E11.52 Type 2 diabetes mellitus with diabetic peripheral angiopathy with gangrene (principal); L03.116 Cellulitis of left lower limb; M86.9 Osteomyelitis, unspecified; M86.172 Other acute osteomyelitis, left ankle and foot; E11.69 Type 2 diabetes mellitus with other specified complication; I10 Essential (primary) hypertension; I25.10 Atherosclerotic heart disease of native coronary artery without angina pectoris
CPT/HCPCS: 36415; 71020-TC; 73630-TC-LT; 75635-TC; 76000-TC; 78315-TC; 80048; 80053; 83605; 85025; 85027; 85610; 86850; 86900; 86901; 87040; 88305-TC; 88311-TC; 93005; 93010; 93971-TC; 94760; 97116-GP; 97161-GP; 99283-25; A9503; G0480; J1644

== ENCOUNTER 2017-01-29 11:41 | Inpatient (IN) | payer OTHER ==
--- NOTE | 2017-01-29 11:58 | PDOC ---
History of Present Illness - General History Source: Patient Exam Limitations: No Limitations - History of Present Illness Initial Comments: CHIEF COMPLAINT: 81 y/o afebrile male with PMH HTH, IDDM, PAD, peripheral neuropathy, early alzheimer's sent in by Dr. Presley for admission for gangrenous toes. HISTORY OF PRESENT ILLNESS: The patient had the 3rd digit of his left toe amputated last week. When the visiting nurse went to change his wound vac this morning she noticed the toes next to the amputated one on both sides were black. The patient informed Dr. Presley who instructed him to come to the hospital for admission for possible amputation of those 2 toes. The patient has no complaints and denies all symptoms. Vital signs on arrival are within normal limits. REVIEW OF SYSTEMS: GENERAL/CONSTITUTIONAL: No fever/chills. No weakness. No weight change. HEAD, EYES, EARS, NOSE AND THROAT: No change in vision. No ear pain or discharge. No sore throat. MUSCULOSKELETAL: +left toes black. No neck or back pain. SKIN: No rash or easy bruising. NEUROLOGIC: No headache, vertigo, loss of consciousness, or loss of sensation. PHYSICAL EXAM: VITAL_SIGNS: within normal limits GENERAL_APPEARANCE: alert, cooperative, no obvious discomfort. MENTAL_STATUS: speech clear, oriented X 3, responds appropriately to questions. NEURO: motor intact and sensory intact in injured extremity. EXTREMITIES: 2nd and 4th toe of left foot are necrotic and with no sensation to light or sharp touch. 3rd toe is missing secondary to amputation. SKIN: warm, dry, good color. <Eugenia Whipple - Last Filed: 01/29/17 12:45> <Barbara Green - Last Filed: 02/01/17 12:08> - General Chief Complaint: Wound Infection Stated Complaint: TOE INFECTION (PCP SENT) Time Seen by Provider: 01/29/17 11:52 Past History - Past Medical History Anemia: No Asthma: No Cancer: No Cardiac Disorders: No CVA: No COPD: No CHF: No Dementia: Yes (early alzheimers) Diabetes: Yes GI Disorders: No Disorders: Yes (BPH) HTN: Yes Hypercholesterolemia: Yes Psychiatric Problems: Yes (depression/anxiety) Seizures: No Thyroid Disease: No - Surgical History Abdominal Surgery: No Appendectomy: No Cardiac Surgery: No Cholecystectomy: No Lung Surgery: No Neurologic Surgery: No - Immunization History Immunization Up to Date: Yes - Psycho/Social/Smoking Cessation Hx Suicidal Ideation: No Smoking History: Never smoked Have you smoked in the past 12 months: No Information on smoking cessation initiated: No Hx Alcohol Use: No Drug/Substance Use Hx: No Substance Use Type: None <Eugenia Whipple - Last Filed: 01/29/17 12:45> <Barbara Green - Last Filed: 02/01/17 12:08> - Past Medical History Allergies/Adverse Reactions: Allergies Allergy/AdvReac Type Severity Reaction Status Date / Time No Known Allergies Allergy Verified 01/29/17 11:49 Home Medications: Ambulatory Orders Amlodipine Besylate [Norvasc -] 10 mg PO DAILY 01/12/17 Amox-Tr/K Cl [Augmentin - 875Mg Tablet] 1 tab PO BID 01/12/17 Donepezil HCl 23 mg PO DAILY 01/12/17 Gabapentin [Neurontin -] 300 mg PO BID 01/12/17 Insulin Lispro Protamin/Lispro [Humalog Mix 75-25 Kwikpen] 27 unit SQ AM Insulin Lispro Protamin/Lispro [Humalog Mix 75-25 Kwikpen] 27 unit SQ HS Memantine HCl [Namenda -] 10 mg PO BID 01/12/17 Metformin HCl 500 mg PO BIDAC 01/12/17 Metoprolol Succinate [Toprol Xl] 100 mg PO DAILY 01/12/17 Mirtazapine [Remeron -] 15 mg PO HS 01/12/17 Quetiapine Fumarate [Seroquel -] 50 mg PO HS 01/12/17 Silver Sulfadiazine 1% Top Cr [Silvadene -] 1 applic TP DAILY 01/12/17 Tamsulosin HCl [Flomax] 0.4 mg PO DAILY 01/12/17 Valsartan [Diovan] 160 mg PO BID 01/12/17 Bimatoprost [Lumigan] 1 drop OU HS 01/14/17 Brimonidine Tartrate [Alphagan P 0.1% -] 1 drop OU BID 01/14/17 Dorzolamide HCl/Timolol Maleat [Cosopt Eye Drops] 1 drop OU BID 01/14/17 *Physical Exam - Vital Signs Last Vital Signs Temp Pulse Resp BP Pulse Ox 98.3 F 66 17 129/56 98 01/29/17 11:47 01/29/17 11:47 01/29/17 11:47 01/29/17 11:47 01/29/17 11:47 <Eugenia Whipple - Last Filed: 01/29/17 12:45> - Vital Signs Last Vital Signs Temp Pulse Resp BP Pulse Ox 98.2 F 55 L 18 163/67 96 02/01/17 06:19 02/01/17 06:19 02/01/17 06:19 02/01/17 06:19 01/31/17 21:00 <Barbara Green - Last Filed: 02/01/17 12:08> Heart Score/ECG Review - ECG Intrepretation Comment:: Twelve-lead EKG was performed and reviewed by Dr. Green. There is normal sinus rhythm with a normal rate. The axis is normal. The intervals are normal. Possible anterior infarct, age undetermined. Impression: Abnormal twelve-lead EKG <Eugenia Whipple - Last Filed: 01/29/17 12:45> ED Treatment Course - LABORATORY CBC & Chemistry Diagram: 01/29/17 12:36 01/29/17 12:36 <Eugenia Whipple - Last Filed: 01/29/17 12:45> - LABORATORY CBC & Chemistry Diagram: 02/01/17 06:00 02/01/17 06:00 - Medications Given in the ED: ED Medications Discontinued Medications Generic Name Dose Route Start Last Admin Trade Name Bernie PRN Reason Stop Dose Admin Amlodipine Besylate 5 mg 01/30/17 23:15 01/30/17 23:26 Norvasc - PO 01/30/17 23:16 5 mg ONCE ONE Administration Sodium Chloride 1,000 mls @ 75 mls/hr 01/30/17 18:45 01/31/17 17:35 Normal Saline - IV Not Given ASDIR [facility] Sodium Chloride 1,000 mls @ 75 mls/hr 01/30/17 19:01 01/30/17 20:20 Normal Saline - IV 75 mls/hr ASDIR [facility] Administration Insulin Aspart 1 vial 01/29/17 22:00 01/30/17 18:02 Novolog Vial Sliding Scale - SQ Not Given ACHS [facility] Protocol Metoprolol Succinate 100 mg 01/30/17 10:00 01/30/17 09:33 Toprol Xl - PO Not Given DAILY [facility] Mirtazapine 15 mg 01/29/17 22:00 01/29/17 21:11 Remeron - PO 15 mg HS [facility] Administration Piperacillin Sod/Tazobactam Sod 3.375 gm 01/29/17 20:00 01/30/17 18:02 Zosyn 3.375gm Ivpb (Pre-Docked) IVPB Not Given Q8H-IV [facility] Vancomycin HCl 1,000 mg 01/29/17 20:00 01/29/17 21:11 Vancomycin (Pre-Docked) IVPB 01/29/17 20:01 1,000 mg ONCE ONE Administration Vancomycin HCl 1,000 mg 01/31/17 16:30 01/31/17 17:07 Vancomycin (Pre-Docked) IVPB 01/31/17 16:31 1,000 mg ONCE ONE Administration <Barbara Green - Last Filed: 02/01/17 12:08> Medical Decision Making - Medical Decision Making A/P: 81 y/o male here for admission for gangrenous toes to be admitted to Dr. Presley with Dr. Hernandez consult. Plan is to order admission labs and admit. Pt and family is aware of the plan and amenable. <Eugenia Whipple - Last Filed: 01/29/17 12:45> *DC/Admit/Observation/Transfer - Discharge Dispostion Admit: Yes <Eugenia Whipple - Last Filed: 01/29/17 12:45> - Attestations Physician Attestion: I reviewed the case with the mid-level practitioner and agree with the mid- level practitioner's assessment, diagnosis and disposition. <Barbara Green - Last Filed: 02/01/17 12:08> Diagnosis at time of Disposition: Gangrene of toe - Discharge Dispostion Condition at time of disposition: Stable - Referrals
[2017-01-29 12:40] LABS: BASOPHIL 0.8 % (0-2.0); EOSINOPHIL 0.9 % (0-4.5); MCH 24.9 pg (25.7-33.7); MCHC 33.1 g/dl (32.0-35.9); MEAN CELL VOLUME 75.2 fl (80-96); MEAN PLT VOLUME 7.9 fl (7.5-11.1); NEUTROPHILS 79.5 % (42.8-82.8); PLATELET COUNT 410 K/MM3 (134-434); RDW 16.2 % (11.9-15.9); WHITE BLOOD COUNT 14.6 K/mm3 (4.0-10.0)
[2017-01-29 12:55] LABS: INR 1.28 (0.82-1.09); PROTHROMBIN TIME (PATIENT) 14.2 SEC (9.98-11.88)
[2017-01-29 12:57] LABS: ACTIVATED PTT 31.3 SECONDS (26.9-34.4)
--- NOTE | 2017-01-29 13:18 | EKG ---
Test Reason : Blood Pressure : / mmHG Vent. Rate : 061 BPM Atrial Rate : 061 BPM P-R Int : 192 ms QRS Dur : 082 ms QT Int : 426 ms P-R-T Axes : 000 -23 053 degrees QTc Int : 428 ms POOR DATA QUALITY, INTERPRETATION MAY BE ADVERSELY AFFECTED NORMAL SINUS RHYTHM POSSIBLE ANTERIOR INFARCT , AGE UNDETERMINED ABNORMAL ECG WHEN COMPARED WITH ECG OF 13-JAN-2017 08:08, NO SIGNIFICANT CHANGE WAS FOUND Confirmed by SANDEEP GUILLEN MD ([id number]) on 01/29/2017 1:17:48 PM Referred By: Confirmed By:SANDEEP GUILLEN MD
[2017-01-29 16:28] LABS: ALBUMIN 2.9 g/dl (3.4-5.0); ALK PHOS 112 U/L (45-117); ANION GAP 9 (8-16); BILIRUBIN,TOTAL 0.3 mg/dL (0.2-1.0); CALCIUM 9.1 mg/dL (8.5-10.1); CO2 29 mmol/L (21-32); COCKROFT - GAULT 51.97; CREATININE 1.2 mg/dL (0.7-1.3); GLUCOSE,RANDOM 195 mg/dL (74-106); SGOT/AST 31 U/L (15-37); SGPT/ALT 68 U/L (12-78); TOT PROT 7.7 g/dl (6.4-8.2)
[2017-01-29 16:30] LABS: TROPONIN I < 0.02 ng/ml (0.00-0.05)
--- NOTE | 2017-01-29 16:35 | PN ---
Progress Note (short form) - Note Progress Note: Vascular Surgery S/P Left lower ext angiogram angioplasty last week. Then had 3rd toe amputation . Now comes in with fevers and discoloration of 2nd and 4th toes. Will do amputation of 2nd and 4th toes afshin. Spoke to family at bedside. NPO past midnite. Jey Hernandez DO
[2017-01-29 17:50] VITALS: BMI 24.2
[2017-01-29] MEDS ORDERED: VANCOMYCIN 1 GRAM (PRE-DOCKED) 1,000 MG/250 ML BAG IVPB ONE (20:00)
[2017-01-29] MEDS: PIPERACILLIN/TAZOB 3.375 GM/50 ML PRE-DOCKED IVPB SCH (20:32)
[2017-01-29] MEDS: INSULIN SLIDING SCALE (NOVOLOG) 1 VIAL SQ SCH (21:19)
[2017-01-29] MEDS ORDERED: MIRTAZAPINE 15 MG TABLET (FP) PO SCH (22:00)
[2017-01-30] MEDS: PIPERACILLIN/TAZOB 3.375 GM/50 ML PRE-DOCKED IVPB SCH ×3 (01:59→18:02)
[2017-01-30] MEDS: INSULIN SLIDING SCALE (NOVOLOG) 1 VIAL SQ SCH ×4 (06:25→21:55)
--- NOTE | 2017-01-30 09:37 | HP ---
DATE OF ADMISSION: DATE OF DICTATION: 01/30/2017 HISTORY OF PRESENT ILLNESS: This is an 81-year-old male known to have peripheral vascular disease and foot ulcer, status post amputation of the 3rd toe about a week ago and was discharged home, placed on IVAC and p.o. antibiotics. He had fever, came to see me in the office yesterday. The 2nd and 4th toes are gangrenous now. Case discussed with Dr. Hernandez, advised amputation, so patient got admitted. He is also known to have hypertension, peripheral vascular disease. PHYSICAL EXAMINATION General: This morning, he is feeling better. Vital signs: BP 160/70, pulse 72, temperature 98. HEENT: Unremarkable. Neck: Supple. No JVD. Lungs: Clear. Heart: S1, S2 normal. No S3, S4. Abdomen: Soft. Extremities: Legs, no edema. Left foot peripheral pulses are good. There is gangrene in the and 4th toes, and the wound is infected, also. IMPRESSION: Peripheral vascular disease, gangrene of the left foot, hypertension. PLAN: I advise IV antibiotics. Patient will be scheduled for amputation today and is medically cleared. Vibha [id number]
[2017-01-30] MEDS ORDERED: METOPROLOL SUCCINATE 100 MG TAB.SR.24H (FP) PO SCH (10:00)
--- NOTE | 2017-01-30 12:57 | CONSULT ---
Consult Consult Specialty:: infectious diseases Referred by:: Reason for Consultation:: gangrene of the rt toes 2nd and 4th - History of Present Illness Chief Complaint: fever,discoloration of toes History of Present Illness: This patient who is well known to me from last admission and had gangrene of the 3rd toe and was amputated and also patient had angioplasty of the leg vessels which was opened patient was given abx and then was send home patient had a wound cvac placed on the wound and was doing well patient now redeveloped fevers and his 2nd and 4th toes started showing discoloration and patient was evaluated by vascular and looks like patient needs amputation of further toes as they are showing gangrenous changes patient going for surgery today patient was also spiking fevers and his abx were continued which was augmentin - History Source History Provided By: Patient, Family Member Limitations to Obtaining History: No Limitations - Alcohol/Substance Use Hx Alcohol Use: No - Smoking History Smoking history: Never smoked Have you smoked in the past 12 months: No Home Medications - Allergies Allergies/Adverse Reactions: Allergies Allergy/AdvReac Type Severity Reaction Status Date / Time No Known Allergies Allergy Verified 01/29/17 11:49 - Home Medications Home Medications: Ambulatory Orders Amlodipine Besylate [Norvasc -] 10 mg PO DAILY 01/12/17 Amox-Tr/K Cl [Augmentin - 875Mg Tablet] 1 tab PO BID 01/12/17 Donepezil HCl 23 mg PO DAILY 01/12/17 Gabapentin [Neurontin -] 300 mg PO BID 01/12/17 Insulin Lispro Protamin/Lispro [Humalog Mix 75-25 Kwikpen] 27 unit SQ AM Insulin Lispro Protamin/Lispro [Humalog Mix 75-25 Kwikpen] 27 unit SQ HS Memantine HCl [Namenda -] 10 mg PO BID 01/12/17 Metformin HCl 500 mg PO BIDAC 01/12/17 Metoprolol Succinate [Toprol Xl] 100 mg PO DAILY 01/12/17 Mirtazapine [Remeron -] 15 mg PO HS 01/12/17 Quetiapine Fumarate [Seroquel -] 50 mg PO HS 01/12/17 Silver Sulfadiazine 1% Top Cr [Silvadene -] 1 applic TP DAILY 01/12/17 Tamsulosin HCl [Flomax] 0.4 mg PO DAILY 01/12/17 Valsartan [Diovan] 160 mg PO BID 01/12/17 Bimatoprost [Lumigan] 1 drop OU HS 01/14/17 Brimonidine Tartrate [Alphagan P 0.1% -] 1 drop OU BID 01/14/17 Dorzolamide HCl/Timolol Maleat [Cosopt Eye Drops] 1 drop OU BID 01/14/17 Review of Systems - Review of Systems Constitutional: reports: Fever, Other Eyes: reports: No Symptoms HENT: reports: No Symptoms Neck: reports: No Symptoms Cardiovascular: reports: No Symptoms Respiratory: reports: No Symptoms Gastrointestinal: reports: No Symptoms Genitourinary: reports: No Symptoms Musculoskeletal: reports: Joint Pain, Other Integumentary: reports: Change in Color, Erythema, Other (gangreneous changes of the 2nd and 4th toe) Neurological: reports: No Symptoms Endocrine: reports: No Symptoms Hematology/Lymphatic: reports: No Symptoms Psychiatric: reports: No Symptoms Physical Exam Vital Signs: Vital Signs Temperature 98.7 F 01/30/17 09:37 Pulse Rate 59 L 01/30/17 09:37 Respiratory Rate 18 01/30/17 09:37 Blood Pressure 146/65 01/30/17 09:37 O2 Sat by Pulse Oximetry (%) 96 01/29/17 21:00 Constitutional: Yes: No Distress, Calm Cardiovascular: Yes: Regular Rate and Rhythm Respiratory: Yes: Regular, CTA Bilaterally Gastrointestinal: Yes: Normal Bowel Sounds, Soft Musculoskeletal: Yes: Other Extremities: Yes: Other Integumentary: Yes: Other (gangrenous changes of the 2nd and the 4th toes) Wound/Incision: Yes: Dressing Dry and Intact, Other Neurological: Yes: Alert, Oriented Psychiatric: Yes: Alert, Oriented Labs: CBC, BMP 01/29/17 12:36 01/29/17 16:00 Imaging - Results X-ray: Report Reviewed, Image Reviewed Assessment/Plan cellulitis of the left foot discoloration of 2nd and 4th toe dm pvd leukocytosis plan on iv abx surgery on case will need iv abx for few days follow wbc
[2017-01-30] MEDS ORDERED: PROPOFOL 20 ML ONE (17:50)
[2017-01-30] MEDS ORDERED: MIDAZOLAM HCL 2 MG/2 ML SINGLE DOSE VIAL ONE (17:51)
[2017-01-30] MEDS ORDERED: PIPERACILLIN/TAZOBACTAM 3.375 GM VIAL IVPB ONE (17:55)
[2017-01-30] MEDS ORDERED: LIDOCAINE HCL 1%, 10 MG/ML (20ML VIAL) ONE (18:01)
[2017-01-30] MEDS ORDERED: LIDOCAINE HCL 1%, 10 MG/ML (20ML VIAL) IJ ONE (18:03)
[2017-01-30] MEDS ORDERED: ONDANSETRON 4 MG/2 ML VIAL IVPUSH PRN ×2 (18:41→19:01)
--- NOTE | 2017-01-30 18:43 | OP ---
Operative Note - Note: Operative Date: 01/30/17 Operation: left 2nd and 4th toe amputation Post-Operative Diagnosis: Same as Pre-op Surgeon: Jey Hernandez Anesthesia: Fractional Estimated Blood Loss (mls): 50 Operative Report Dictated: Yes
[2017-01-30] MEDS ORDERED: SODIUM CHLORIDE 1,000 ML IV SCH ×2 (18:45→19:01)
--- NOTE | 2017-01-30 21:08 | OP ---
DATE OF OPERATION: 01/30/2017 PREOPERATIVE DIAGNOSIS: Left 2nd and 4th toe gangrene. POSTOPERATIVE DIAGNOSIS: Left 2nd and 4th toe gangrene. PROCEDURE: Left 2nd and 4th toe amputation. SURGEON: Jey Moscoso DO ANESTHESIA: Fractional. BLOOD LOSS: 50 mL. DESCRIPTION OF PROCEDURE: The patient is an 81-year-old male who had a 3rd toe amputation on his left foot, done last week. He then progressed to having the 2nd and 4th toe become gangrenous and discolored and he came back into the hospital with fevers and saw that he would need those toes amputated. Patient consented for the procedure, understanding all risks, benefits, and alternatives and then was taken to the operating room. Once in the operating room, was laid down on the operating table in the supine manner. The area of the left foot was prepped and draped in the sterile surgical manner. We then went ahead and made an elliptical incision around the 2nd and 4th toes in 1 giant elliptical incision using a 15-blade and Bovie cautery was used to control hemostasis. We were able to get down to the bony attachment of the 2nd and 4th toes. A bone cutter was used and the toes were sent to pathology. We then took a rongeur and took the toes back all of the way to the metatarsal head and the metatarsal head was removed of the 2nd and 4th toe. We then went ahead and used Metzenbaum scissors and went ahead and debrided all of the tissue in the wound and that was removed. Bovie electrocautery was used to control all hemostasis. The wound bled well. Saline moist dressing was placed with 4 x 4s and Kerlix. We will place a vacuum dressing on the wound tomorrow. Patient tolerated the procedure well with no complications. Patient was transferred back in stable condition. Total blood loss was 50 mL. JEY MOSCOSO DO NEEDLE GRINDER/[id number]
[2017-01-30] MEDS: MIRTAZAPINE 15 MG TABLET (FP) PO SCH (21:56)
[2017-01-30] MEDS ORDERED: amLODIPine BESYLATE 5 MG TABLET (FP) PO ONE (23:15)
[2017-01-30] MEDS: ACETAMINOPHEN 325 MG TABLET (FP) PO PRN (23:24)
[2017-01-31] MEDS: PIPERACILLIN/TAZOB 3.375 GM/50 ML PRE-DOCKED IVPB SCH ×3 (02:10→17:06)
[2017-01-31] MEDS: INSULIN SLIDING SCALE (NOVOLOG) 1 VIAL SQ SCH ×4 (06:37→22:03)
--- NOTE | 2017-01-31 09:26 | PN ---
Progress Note (short form) - Note Progress Note: Vascular Surgery S/P 2nd and 4th toe amputation. Wound left open due to infection. Debridement performed to make it clean. VAC ordered -- will have it placed today. Toe amputations performed including metatarsal heads. Jey Hernandez DO
--- NOTE | 2017-01-31 09:34 | PN ---
Progress Note, Physician History of Present Illness: S/P amputation of 2nd and 4th toes Spiked fever on IV antibiotics - Current Medication List Current Medications: Active Medications Acetaminophen (Tylenol -) 650 mg PO Q6H PRN PRN Reason: FEVER OR PAIN Last Admin: 01/30/17 23:24 Dose: 650 mg Fentanyl (Sublimaze Injection -) 25 mcg IVPUSH [id number] PRN PRN Reason: PAIN Stop: 02/02/17 18:42 Sodium Chloride (Normal Saline -) 1,000 mls @ 75 mls/hr IV ASDIR [facility] Last Admin: 01/30/17 20:20 Dose: 75 mls/hr Insulin Aspart (Novolog Vial Sliding Scale -) 1 vial SQ ACHS [facility] PRN Reason: Protocol Last Admin: 01/31/17 06:37 Dose: 4 unit Metoprolol Succinate (Toprol Xl -) 100 mg PO DAILY [facility] Mirtazapine (Remeron -) 15 mg PO HS [facility] Last Admin: 01/30/17 21:56 Dose: 15 mg Piperacillin Sod/Tazobactam Sod (Zosyn 3.375gm Ivpb (Pre-Docked)) 3.375 gm IVPB Q8H-IV [facility] Last Admin: 01/31/17 02:10 Dose: 3.375 gm - Objective Vital Signs: Vital Signs Temperature 98.6 F 01/31/17 05:59 Pulse Rate 68 01/31/17 05:59 Respiratory Rate 20 01/31/17 05:59 Blood Pressure 154/75 01/31/17 05:59 O2 Sat by Pulse Oximetry (%) 97 01/30/17 21:00 Constitutional: Yes: No Distress Eyes: Yes: WNL HENT: Yes: WNL Neck: Yes: WNL Respiratory: Yes: WNL Gastrointestinal: Yes: WNL ...Rectal Exam: Yes: Deferred Breast(s): Yes: WNL Edema: No Neurological: Yes: Alert Psychiatric: Yes: Alert Labs: CBC, BMP 01/29/17 12:36 01/29/17 16:00 INR, PTT INR 1.28 (0.82-1.09) H 01/29/17 12:36 Assessment/Plan DC iv fluids
--- NOTE | 2017-01-31 09:49 | PN ---
Progress Note, Physician History of Present Illness: patient post op spiked fever yesterday currently doing well - Current Medication List Current Medications: Active Medications Acetaminophen (Tylenol -) 650 mg PO Q6H PRN PRN Reason: FEVER OR PAIN Last Admin: 01/30/17 23:24 Dose: 650 mg Fentanyl (Sublimaze Injection -) 25 mcg IVPUSH [id number] PRN PRN Reason: PAIN Stop: 02/02/17 18:42 Insulin Aspart (Novolog Vial Sliding Scale -) 1 vial SQ ACHS [facility] PRN Reason: Protocol Last Admin: 01/31/17 06:37 Dose: 4 unit Metoprolol Succinate (Toprol Xl -) 100 mg PO DAILY [facility] Mirtazapine (Remeron -) 15 mg PO HS [facility] Last Admin: 01/30/17 21:56 Dose: 15 mg Piperacillin Sod/Tazobactam Sod (Zosyn 3.375gm Ivpb (Pre-Docked)) 3.375 gm IVPB Q8H-IV [facility] Last Admin: 01/31/17 02:10 Dose: 3.375 gm - Objective Vital Signs: Vital Signs Temperature 98.6 F 01/31/17 05:59 Pulse Rate 68 01/31/17 05:59 Respiratory Rate 20 01/31/17 05:59 Blood Pressure 154/75 01/31/17 05:59 O2 Sat by Pulse Oximetry (%) 97 01/30/17 21:00 Constitutional: Yes: No Distress, Calm Neck: Yes: Supple, Trachea Midline Cardiovascular: Yes: Regular Rate and Rhythm Respiratory: Yes: Regular, CTA Bilaterally Gastrointestinal: Yes: Normal Bowel Sounds, Soft Musculoskeletal: Yes: Other Extremities: Yes: Other Wound/Incision: Yes: Dressing Dry and Intact Neurological: Yes: Alert, Oriented Psychiatric: Yes: Alert, Oriented Labs: CBC, BMP 01/29/17 12:36 01/29/17 16:00 INR, PTT INR 1.28 (0.82-1.09) H 01/29/17 12:36 Assessment/Plan cellulitis of the left foot discoloration of 2nd and 4th toe dm pvd leukocytosis plan continue iv abx patient for vac placement rest ct as per surgery wound care
[2017-01-31] MEDS: METOPROLOL SUCCINATE 100 MG TAB.SR.24H (FP) PO SCH (09:57)
[2017-01-31] MEDS ORDERED: VANCOMYCIN 1 GRAM (PRE-DOCKED) 1,000 MG/250 ML BAG IVPB ONE ×2 (16:30→17:15)
[2017-01-31] MEDS: ACETAMINOPHEN 325 MG TABLET (FP) PO PRN (16:55)
[2017-01-31] MEDS: amLODIPine BESYLATE 5 MG TABLET (FP) PO SCH (17:45)
[2017-01-31] MEDS ORDERED: PT OWN MED DRAWER 7, Y5N ONE (17:58)
[2017-01-31] MEDS: BRIMONIDINE TARTRATE 0.1% OPHTHALMIC 5 ML BOTTLE OU SCH (22:03)
[2017-01-31] MEDS: MIRTAZAPINE 15 MG TABLET (FP) PO SCH (22:03)
[2017-01-31] MEDS: DORZOLAMIDE 2% HCL OPHTHALMIC SOLUTION 10 ML BOTTLE OU SCH (22:04)
[2017-01-31] MEDS: TIMOLOL 0.5% OPHTHALMIC SOL 5 ML BOTTLE OU SCH (22:04)
[2017-01-31] MEDS: LATANOPROST 0.005% OPHTH SOLN 2.5ML BOTTLE OU SCH (22:05)
[2017-02-01] MEDS: PIPERACILLIN/TAZOB 3.375 GM/50 ML PRE-DOCKED IVPB SCH ×3 (01:47→18:26)
[2017-02-01] MEDS: ACETAMINOPHEN 325 MG TABLET (FP) PO PRN (01:48)
[2017-02-01] MEDS: INSULIN SLIDING SCALE (NOVOLOG) 1 VIAL SQ SCH ×4 (06:20→21:10)
[2017-02-01 07:16] LABS: MCHC 33.5 g/dl (32.0-35.9); MEAN CELL VOLUME 74.6 fl (80-96); MEAN PLT VOLUME 7.7 fl (7.5-11.1); PLATELET COUNT 303 K/MM3 (134-434); RDW 16.3 % (11.9-15.9); WHITE BLOOD COUNT 10.1 K/mm3 (4.0-10.0)
[2017-02-01 07:42] LABS: ALBUMIN 2.5 g/dl (3.4-5.0); ANION GAP 9 (8-16); BILIRUBIN,TOTAL 0.6 mg/dL (0.2-1.0); CALCIUM 8.7 mg/dL (8.5-10.1); CO2 29 mmol/L (21-32); COCKROFT - GAULT 58.07; CREATININE 1.1 mg/dL (0.7-1.3); GLUCOSE,RANDOM 196 mg/dL (74-106); SGOT/AST 22 U/L (15-37); SGPT/ALT 45 U/L (12-78); TOT PROT 6.7 g/dl (6.4-8.2)
[2017-02-01 07:43] LABS: ALK PHOS 92 U/L (45-117)
--- NOTE | 2017-02-01 08:01 | PN ---
Progress Note (short form) - Note Progress Note: The patient has no complaints of pain. Tolerating a diet. Vital Signs Period Temp Pulse Resp BP Sys/Burrell Pulse Ox Last 24 Hr 98.2 F-101.3 F 55-75 16-18 153-179/67-76 96-97 PE: GEN: appears comfortable Left foot/vac dressing in place. No evidence of bleeding. CBC, BMP 02/01/17 06:00 02/01/17 06:00 Microbiology Blood cultures pending x2. A/P: 81 yo male s/p left 2/4 toe amp, with fever spike to 101.3 yesterday. Currently afebrile Vac in place and will remain until Friday(placed yesterday) POD#2 from his surgery Blood cultures sent and pending from yesterday Surgery to continue to follow surgical wound oob to chair/incentive spirometer
[2017-02-01] MEDS ORDERED: amLODIPine BESYLATE 5 MG TABLET (FP) PO SCH (10:00)
--- NOTE | 2017-02-01 10:13 | PN ---
Progress Note, Physician History of Present Illness: patient stable spiked temperature yesterday no complaints today wound vac in place - Current Medication List Current Medications: Active Medications Acetaminophen (Tylenol -) 650 mg PO Q6H PRN PRN Reason: FEVER OR PAIN Last Admin: 02/01/17 01:48 Dose: 650 mg Amlodipine Besylate (Norvasc -) 5 mg PO DAILY [facility] Last Admin: 01/31/17 17:45 Dose: 5 mg Brimonidine Tartrate (Alphagan P 0.1% -) 1 drop OU BID [facility] Last Admin: 01/31/17 22:03 Dose: 1 drop Dorzolamide HCl (Trusopt 2%) 1 drop OU BID [facility] Last Admin: 01/31/17 22:04 Dose: 1 drop Fentanyl (Sublimaze Injection -) 25 mcg IVPUSH [id number] PRN PRN Reason: PAIN Stop: 02/02/17 18:42 Insulin Aspart (Novolog Vial Sliding Scale -) 1 vial SQ ACHS [facility] PRN Reason: Protocol Last Admin: 02/01/17 06:20 Dose: Not Given Latanoprost (Xalatan 0.005% Eye Drops -) 1 drop OU HS [facility] Last Admin: 01/31/17 22:05 Dose: 1 drop Metoprolol Succinate (Toprol Xl -) 100 mg PO DAILY [facility] Last Admin: 01/31/17 09:57 Dose: 100 mg Mirtazapine (Remeron -) 15 mg PO HS [facility] Last Admin: 01/31/17 22:03 Dose: 15 mg Piperacillin Sod/Tazobactam Sod (Zosyn 3.375gm Ivpb (Pre-Docked)) 3.375 gm IVPB Q8H-IV [facility] Last Admin: 02/01/17 01:47 Dose: 3.375 gm Timolol Maleate (Timoptic 0.5%) 1 drop OU BID [facility] Last Admin: 01/31/17 22:04 Dose: 1 drop - Objective Vital Signs: Vital Signs Temperature 98.2 F 02/01/17 06:19 Pulse Rate 55 L 02/01/17 06:19 Respiratory Rate 18 02/01/17 06:19 Blood Pressure 163/67 02/01/17 06:19 O2 Sat by Pulse Oximetry (%) 96 01/31/17 21:00 Constitutional: Yes: No Distress, Calm Cardiovascular: Yes: Regular Rate and Rhythm Respiratory: Yes: Regular, CTA Bilaterally Gastrointestinal: Yes: Normal Bowel Sounds, Soft Musculoskeletal: Yes: Other Extremities: Yes: Other Integumentary: Yes: WNL Wound/Incision: Yes: Other (wound vac in place) Psychiatric: Yes: Alert, Oriented Labs: CBC, BMP 02/01/17 06:00 02/01/17 06:00 INR, PTT INR 1.28 (0.82-1.09) H 01/29/17 12:36 Assessment/Plan cellulitis of the left foot discoloration of 2nd and 4th toe dm pvd leukocytosis plan continue iv abx vac placed await for cx report continue to monitor temp
[2017-02-01] MEDS ORDERED: PT OWN MED DRAWER 7, Y5N ONE ×2 (10:19→20:59)
[2017-02-01] MEDS: amLODIPine BESYLATE 5 MG TABLET (FP) PO SCH (10:22)
[2017-02-01] MEDS: BRIMONIDINE TARTRATE 0.1% OPHTHALMIC 5 ML BOTTLE OU SCH ×2 (10:22→21:11)
[2017-02-01] MEDS: METOPROLOL SUCCINATE 100 MG TAB.SR.24H (FP) PO SCH (10:22)
[2017-02-01] MEDS: DORZOLAMIDE 2% HCL OPHTHALMIC SOLUTION 10 ML BOTTLE OU SCH ×2 (10:23→21:12)
[2017-02-01] MEDS: TIMOLOL 0.5% OPHTHALMIC SOL 5 ML BOTTLE OU SCH ×2 (10:23→21:12)
--- NOTE | 2017-02-01 12:19 | PN ---
Progress Note, Physician Chief Complaint: Feels better History of Present Illness: S/P amputation of 2nd 3rd and 4th toes of lt foot Had spiked fever yesterday On IV antibiotics - Current Medication List Current Medications: Active Medications Acetaminophen (Tylenol -) 650 mg PO Q6H PRN PRN Reason: FEVER OR PAIN Last Admin: 02/01/17 01:48 Dose: 650 mg Amlodipine Besylate (Norvasc -) 5 mg PO DAILY [facility] Last Admin: 02/01/17 10:22 Dose: 5 mg Brimonidine Tartrate (Alphagan P 0.1% -) 1 drop OU BID [facility] Last Admin: 02/01/17 10:22 Dose: 1 drop Dorzolamide HCl (Trusopt 2%) 1 drop OU BID [facility] Last Admin: 02/01/17 10:23 Dose: 1 drop Insulin Aspart (Novolog Vial Sliding Scale -) 1 vial SQ ACHS [facility] PRN Reason: Protocol Last Admin: 02/01/17 06:20 Dose: Not Given Latanoprost (Xalatan 0.005% Eye Drops -) 1 drop OU [facility] Last Admin: 01/31/17 22:05 Dose: 1 drop Metoprolol Succinate (Toprol Xl -) 100 mg PO DAILY [facility] Last Admin: 02/01/17 10:22 Dose: 100 mg Mirtazapine (Remeron -) 15 mg PO HS [facility] Last Admin: 01/31/17 22:03 Dose: 15 mg Piperacillin Sod/Tazobactam Sod (Zosyn 3.375gm Ivpb (Pre-Docked)) 3.375 gm IVPB Q8H-IV [facility] Last Admin: 02/01/17 10:23 Dose: 3.375 gm Timolol Maleate (Timoptic 0.5%) 1 drop OU BID [facility] Last Admin: 02/01/17 10:23 Dose: 1 drop - Objective Vital Signs: Vital Signs Temperature 98.2 F 02/01/17 06:19 Pulse Rate 55 L 02/01/17 06:19 Respiratory Rate 18 02/01/17 06:19 Blood Pressure 163/67 02/01/17 06:19 O2 Sat by Pulse Oximetry (%) 96 01/31/17 21:00 Constitutional: Yes: No Distress Eyes: Yes: WNL HENT: Yes: WNL Neck: Yes: WNL Respiratory: Yes: Regular Gastrointestinal: Yes: WNL ...Rectal Exam: Yes: Deferred Genitourinary: Yes: WNL Edema: No Wound/Incision: Yes: Dressing Dry and Intact ...Motor Strength: WNL Psychiatric: Yes: Alert Labs: CBC, BMP 02/01/17 06:00 02/01/17 06:00 INR, PTT INR 1.28 (0.82-1.09) H 01/29/17 12:36 Assessment/Plan ID note noted Continue same trt
--- NOTE | 2017-02-01 13:51 | PN ---
Progress Note (short form) - Note Progress Note: VAscular Surgery S/P toe amputations. Doing well. VAC in place. Other toes viable. Had temp yesterday. On antibiotics. Will follow Jey Hernandez DO
[2017-02-01] MEDS ORDERED: INSULIN (NOVOLOG) ASPART 100 UNITS/ML 10ML VIAL ONE (17:56)
[2017-02-01] MEDS: LATANOPROST 0.005% OPHTH SOLN 2.5ML BOTTLE OU SCH (21:11)
[2017-02-01] MEDS: MIRTAZAPINE 15 MG TABLET (FP) PO SCH (21:12)
[2017-02-02] MEDS: PIPERACILLIN/TAZOB 3.375 GM/50 ML PRE-DOCKED IVPB SCH ×3 (01:21→17:45)
[2017-02-02] MEDS ORDERED: PT OWN MED DRAWER 7, Y5N ONE ×4 (05:58→21:36)
[2017-02-02] MEDS: INSULIN SLIDING SCALE (NOVOLOG) 1 VIAL SQ SCH ×4 (06:27→21:58)
--- NOTE | 2017-02-02 08:44 | PN ---
Progress Note (short form) - Note Progress Note: Pt without complaints Vital Signs Period Temp Pulse Resp BP Sys/Burrell Pulse Ox Last 24 Hr 98.2 F-99.2 F 57-67 18-20 129-168/63-79 99-99 PE: Left foot: no erythema/swelling to foot. Vac dressing in place. CBC, BMP 02/01/17 06:00 02/01/17 06:00 Microbiology 01/31/17 17:26 Blood - Peripheral Venous Blood Culture - Preliminary NO GROWTH OBTAINED AFTER 24 HOURS, INCUBATION TO CONTINUE FOR 4 DAYS. 01/31/17 17:26 Blood - Peripheral Venous Blood Culture - Preliminary NO GROWTH OBTAINED AFTER 24 HOURS, INCUBATION TO CONTINUE FOR 4 DAYS. Problem List - Problems (1) Gangrene of toe Assessment/Plan: s/p 2/4 toe amputation, overall fevers have improved. Pt with low grade temp to 100.2. Incentive spirometer at pts side continue antibiotics-Iv Zosyn will change vac tomorrow D/w DR. Hernandez Code(s): I96 - GANGRENE, NOT ELSEWHERE CLASSIFIED
[2017-02-02] MEDS: amLODIPine BESYLATE 5 MG TABLET (FP) PO SCH (09:48)
[2017-02-02] MEDS: METOPROLOL SUCCINATE 100 MG TAB.SR.24H (FP) PO SCH (09:48)
[2017-02-02] MEDS: DORZOLAMIDE 2% HCL OPHTHALMIC SOLUTION 10 ML BOTTLE OU SCH ×2 (09:50→21:58)
[2017-02-02] MEDS: BRIMONIDINE TARTRATE 0.1% OPHTHALMIC 5 ML BOTTLE OU SCH ×2 (09:50→21:58)
[2017-02-02] MEDS: TIMOLOL 0.5% OPHTHALMIC SOL 5 ML BOTTLE OU SCH ×2 (09:50→21:58)
--- NOTE | 2017-02-02 11:59 | PN ---
Progress Note, Physician History of Present Illness: patient stable no fevers no complaints leg looks good - Current Medication List Current Medications: Active Medications Acetaminophen (Tylenol -) 650 mg PO Q6H PRN PRN Reason: FEVER OR PAIN Last Admin: 02/01/17 01:48 Dose: 650 mg Amlodipine Besylate (Norvasc -) 5 mg PO DAILY [facility] Last Admin: 02/02/17 09:48 Dose: 5 mg Brimonidine Tartrate (Alphagan P 0.1% -) 1 drop OU BID [facility] Last Admin: 02/02/17 09:50 Dose: 1 drop Dorzolamide HCl (Trusopt 2%) 1 drop OU BID [facility] Last Admin: 02/02/17 09:50 Dose: 1 drop Insulin Aspart (Novolog Vial Sliding Scale -) 1 vial SQ ACHS [facility] PRN Reason: Protocol Last Admin: 02/02/17 06:27 Dose: Not Given Latanoprost (Xalatan 0.005% Eye Drops -) 1 drop OU HS [facility] Last Admin: 02/01/17 21:11 Dose: 1 drop Metoprolol Succinate (Toprol Xl -) 100 mg PO DAILY [facility] Last Admin: 02/02/17 09:48 Dose: 100 mg Mirtazapine (Remeron -) 15 mg PO HS [facility] Last Admin: 02/01/17 21:12 Dose: 15 mg Piperacillin Sod/Tazobactam Sod (Zosyn 3.375gm Ivpb (Pre-Docked)) 3.375 gm IVPB Q8H-IV [facility] Last Admin: 02/02/17 09:50 Dose: 3.375 gm Timolol Maleate (Timoptic 0.5%) 1 drop OU BID [facility] Last Admin: 02/02/17 09:50 Dose: 1 drop - Objective Vital Signs: Vital Signs Temperature 98.0 F 02/02/17 10:00 Pulse Rate 58 L 02/02/17 10:00 Respiratory Rate 20 02/02/17 10:00 Blood Pressure 136/65 02/02/17 10:00 O2 Sat by Pulse Oximetry (%) 99 02/02/17 09:00 Constitutional: Yes: No Distress, Calm Cardiovascular: Yes: Regular Rate and Rhythm Respiratory: Yes: Regular, CTA Bilaterally Gastrointestinal: Yes: Normal Bowel Sounds, Soft Musculoskeletal: Yes: Other Extremities: Yes: Other Wound/Incision: Yes: Other (wound vac in place) Neurological: Yes: Alert, Oriented Psychiatric: Yes: Alert, Oriented Labs: CBC, BMP 02/01/17 06:00 02/01/17 06:00 INR, PTT INR 1.28 (0.82-1.09) H 01/29/17 12:36 Assessment/Plan cellulitis of the left foot discoloration of 2nd and 4th toe dm pvd leukocytosis plan continue iv abx vac placed no cx report await for vac change and look at the wound
--- NOTE | 2017-02-02 13:47 | PN ---
Progress Note, Physician Chief Complaint: feels better History of Present Illness: Case discussed with Dr Cristobal ,advised 2more days IV antibiotics - Current Medication List Current Medications: Active Medications Acetaminophen (Tylenol -) 650 mg PO Q6H PRN PRN Reason: FEVER OR PAIN Last Admin: 02/01/17 01:48 Dose: 650 mg Amlodipine Besylate (Norvasc -) 5 mg PO DAILY [facility] Last Admin: 02/02/17 09:48 Dose: 5 mg Brimonidine Tartrate (Alphagan P 0.1% -) 1 drop OU BID [facility] Last Admin: 02/02/17 09:50 Dose: 1 drop Dorzolamide HCl (Trusopt 2%) 1 drop OU BID [facility] Last Admin: 02/02/17 09:50 Dose: 1 drop Insulin Aspart (Novolog Vial Sliding Scale -) 1 vial SQ ACHS [facility] PRN Reason: Protocol Last Admin: 02/02/17 12:15 Dose: 8 units Latanoprost (Xalatan 0.005% Eye Drops -) 1 drop OU HS [facility] Last Admin: 02/01/17 21:11 Dose: 1 drop Metoprolol Succinate (Toprol Xl -) 100 mg PO DAILY [facility] Last Admin: 02/02/17 09:48 Dose: 100 mg Mirtazapine (Remeron -) 15 mg PO HS [facility] Last Admin: 02/01/17 21:12 Dose: 15 mg Piperacillin Sod/Tazobactam Sod (Zosyn 3.375gm Ivpb (Pre-Docked)) 3.375 gm IVPB Q8H-IV [facility] Last Admin: 02/02/17 09:50 Dose: 3.375 gm Timolol Maleate (Timoptic 0.5%) 1 drop OU BID [facility] Last Admin: 02/02/17 09:50 Dose: 1 drop - Objective Vital Signs: Vital Signs Temperature 98.0 F 02/02/17 10:00 Pulse Rate 58 L 02/02/17 10:00 Respiratory Rate 20 02/02/17 10:00 Blood Pressure 136/65 02/02/17 10:00 O2 Sat by Pulse Oximetry (%) 99 02/02/17 09:00 Constitutional: Yes: No Distress Eyes: Yes: WNL HENT: Yes: WNL Neck: Yes: WNL Cardiovascular: Yes: WNL Respiratory: Yes: WNL Genitourinary: Yes: WNL Extremities: Yes: Amputation Peripheral Pulses WNL: Yes Wound/Incision: Yes: Dressing Dry and Intact Neurological: Yes: Alert Labs: CBC, BMP 02/01/17 06:00 02/01/17 06:00 INR, PTT INR 1.28 (0.82-1.09) H 01/29/17 12:36 Assessment/Plan Continue same trt
[2017-02-02] MEDS ORDERED: INSULIN (NOVOLOG) ASPART 100 UNITS/ML 10ML VIAL ONE ×2 (17:36→21:37)
[2017-02-02] MEDS: metFORMIN HCL 500 MG TABLET (FP) PO SCH (17:45)
[2017-02-02] MEDS: MIRTAZAPINE 15 MG TABLET (FP) PO SCH (21:57)
[2017-02-02] MEDS: LATANOPROST 0.005% OPHTH SOLN 2.5ML BOTTLE OU SCH (21:58)
[2017-02-03] MEDS: PIPERACILLIN/TAZOB 3.375 GM/50 ML PRE-DOCKED IVPB SCH ×3 (02:25→17:05)
[2017-02-03] MEDS: metFORMIN HCL 500 MG TABLET (FP) PO SCH ×2 (06:28→17:05)
[2017-02-03] MEDS: INSULIN SLIDING SCALE (NOVOLOG) 1 VIAL SQ SCH ×4 (06:29→22:22)
--- NOTE | 2017-02-03 08:43 | PN ---
Progress Note, Physician Chief Complaint: feels better No new complaints History of Present Illness: Diabetics ,S/P amputations of Lt 3 toes - Current Medication List Current Medications: Active Medications Acetaminophen (Tylenol -) 650 mg PO Q6H PRN PRN Reason: FEVER OR PAIN Last Admin: 02/01/17 01:48 Dose: 650 mg Amlodipine Besylate (Norvasc -) 5 mg PO DAILY [facility] Last Admin: 02/02/17 09:48 Dose: 5 mg Brimonidine Tartrate (Alphagan P 0.1% -) 1 drop OU BID [facility] Last Admin: 02/02/17 21:58 Dose: 1 drop Dorzolamide HCl (Trusopt 2%) 1 drop OU BID [facility] Last Admin: 02/02/17 21:58 Dose: 1 drop Insulin Aspart (Novolog Vial Sliding Scale -) 1 vial SQ ACHS [facility] PRN Reason: Protocol Last Admin: 02/03/17 06:29 Dose: Not Given Latanoprost (Xalatan 0.005% Eye Drops -) 1 drop OU HS [facility] Last Admin: 02/02/17 21:58 Dose: 1 drop Metformin HCl (Glucophage -) 500 mg PO BIDAC [facility] Last Admin: 02/03/17 06:28 Dose: 500 mg Metoprolol Succinate (Toprol Xl -) 100 mg PO DAILY [facility] Last Admin: 02/02/17 09:48 Dose: 100 mg Mirtazapine (Remeron -) 15 mg PO HS [facility] Last Admin: 02/02/17 21:57 Dose: 15 mg Piperacillin Sod/Tazobactam Sod (Zosyn 3.375gm Ivpb (Pre-Docked)) 3.375 gm IVPB Q8H-IV [facility] Last Admin: 02/03/17 02:25 Dose: 3.375 gm Timolol Maleate (Timoptic 0.5%) 1 drop OU BID [facility] Last Admin: 02/02/17 21:58 Dose: 1 drop - Objective Vital Signs: Vital Signs Temperature 98.6 F 02/03/17 06:00 Pulse Rate 56 L 02/03/17 06:00 Respiratory Rate 18 02/03/17 06:00 Blood Pressure 153/75 02/03/17 06:00 O2 Sat by Pulse Oximetry (%) 99 02/02/17 21:00 Constitutional: Yes: No Distress Eyes: Yes: WNL HENT: Yes: WNL Neck: Yes: WNL Cardiovascular: Yes: WNL Respiratory: Yes: WNL Gastrointestinal: Yes: WNL ...Rectal Exam: Yes: Deferred Genitourinary: Yes: WNL, Urethral Discharge Musculoskeletal: Yes: WNL Edema: No Wound/Incision: Yes: Dressing Dry and Intact Labs: CBC, BMP 02/01/17 06:00 02/01/17 06:00 INR, PTT INR 1.28 (0.82-1.09) H 01/29/17 12:36 Assessment/Plan PT for ambulation
[2017-02-03] MEDS ORDERED: PT OWN MED DRAWER 7, Y5N ONE ×2 (08:57→21:28)
[2017-02-03] MEDS: METOPROLOL SUCCINATE 100 MG TAB.SR.24H (FP) PO SCH (09:31)
[2017-02-03] MEDS: TIMOLOL 0.5% OPHTHALMIC SOL 5 ML BOTTLE OU SCH ×2 (09:32→22:21)
[2017-02-03] MEDS: BRIMONIDINE TARTRATE 0.1% OPHTHALMIC 5 ML BOTTLE OU SCH ×2 (09:32→22:21)
[2017-02-03] MEDS: amLODIPine BESYLATE 5 MG TABLET (FP) PO SCH (09:32)
[2017-02-03] MEDS: DORZOLAMIDE 2% HCL OPHTHALMIC SOLUTION 10 ML BOTTLE OU SCH ×2 (09:33→22:21)
--- NOTE | 2017-02-03 13:57 | PATH ---
Surgical Pathology Report Patient Name: ADELA URIAS Med. Rec. #: [id number] /Age/Gender: 1935 (Age: 81) / M Account: [id number] Location: [facility] MED/SURG Taken: 01/30/2017 Received: 01/31/2017 Reported: 02/03/2017 Physicians: Jey Hernandez Specimen(s) Received LEFT FOOT 2ND & 4TH TOES Clinical History Gangrene of toes Final Diagnosis SECOND AND FOURTH TOES, LEFT, AMPUTATION: SKIN AND SOFT TISSUE AND BONE WITH GANGRENOUS NECROSIS. GANGRENOUS NECROSIS EXTENDS TO THE SKIN SOFT TISSUE RESECTION MARGIN AND FOCALLY TO ONE TOE BONE RESECTION MARGIN. Electronically Signed Luis Daniel Moon M.D. Gross Description Received in formalin labeled "left foot second and fourth toes" are 2 undesignated toe amputations. Arbitrarily designated toe 1 measures 4.5 x 1.8 x 1.7 cm. The entire epidermal surface displays a levine-black, gangrenous lesion which appears to involve the skin and soft tissue margin. The lesion also appears to involve the underlying bone. Arbitrarily designated toe 2 measures 5.0 x 1.6 x 1.6 cm. The entire epidermal surface displays a levine-black, gangrenous lesion which appears to involve the skin and soft tissue margin. The lesion also appears to involve the underlying bone. [facility] sections are submitted in 6 cassettes as follows: 1- toe 1 lesion with underlying bone, following decalcification; 2- toe 1 bone margin, following decalcification; 3- toe 1 skin and soft tissue margin; 4- toe 2 lesion with underlying bone, following decalcification; 5- toe 2 bone margin, following decalcification; 6- toe 2 skin and soft tissue margin. /01/31/2017 saudi/01/31/2017
--- NOTE | 2017-02-03 18:01 | PN ---
Progress Note, Physician History of Present Illness: patient had chills today feeling feverish plan is to look at the wound tomorrow - Current Medication List Current Medications: Active Medications Acetaminophen (Tylenol -) 650 mg PO Q6H PRN PRN Reason: FEVER OR PAIN Last Admin: 02/01/17 01:48 Dose: 650 mg Amlodipine Besylate (Norvasc -) 5 mg PO DAILY [facility] Last Admin: 02/03/17 09:32 Dose: 5 mg Brimonidine Tartrate (Alphagan P 0.1% -) 1 drop OU BID [facility] Last Admin: 02/03/17 09:32 Dose: 1 drop Dorzolamide HCl (Trusopt 2%) 1 drop OU BID [facility] Last Admin: 02/03/17 09:33 Dose: 1 drop Insulin Aspart (Novolog Vial Sliding Scale -) 1 vial SQ ACHS [facility] PRN Reason: Protocol Last Admin: 02/03/17 17:04 Dose: 4 units Latanoprost (Xalatan 0.005% Eye Drops -) 1 drop OU HS [facility] Last Admin: 02/02/17 21:58 Dose: 1 drop Metformin HCl (Glucophage -) 500 mg PO BIDAC [facility] Last Admin: 02/03/17 17:05 Dose: 500 mg Metoprolol Succinate (Toprol Xl -) 100 mg PO DAILY [facility] Last Admin: 02/03/17 09:31 Dose: 100 mg Mirtazapine (Remeron -) 15 mg PO HS [facility] Last Admin: 02/02/17 21:57 Dose: 15 mg Piperacillin Sod/Tazobactam Sod (Zosyn 3.375gm Ivpb (Pre-Docked)) 3.375 gm IVPB Q8H-IV [facility] Last Admin: 02/03/17 17:05 Dose: 3.375 gm Timolol Maleate (Timoptic 0.5%) 1 drop OU BID [facility] Last Admin: 02/03/17 09:32 Dose: 1 drop - Objective Vital Signs: Vital Signs Temperature 98 F 02/03/17 15:33 Pulse Rate 66 02/03/17 15:33 Respiratory Rate 18 02/03/17 15:33 Blood Pressure 149/72 02/03/17 15:33 O2 Sat by Pulse Oximetry (%) 99 02/03/17 09:00 Constitutional: Yes: No Distress, Calm Cardiovascular: Yes: Regular Rate and Rhythm Respiratory: Yes: Regular, CTA Bilaterally Gastrointestinal: Yes: Normal Bowel Sounds, Soft Musculoskeletal: Yes: WNL Extremities: Yes: Other Wound/Incision: Yes: Other (wound vac in place) Neurological: Yes: Alert, Oriented Psychiatric: Yes: Alert, Oriented Labs: CBC, BMP 02/01/17 06:00 02/01/17 06:00 INR, PTT INR 1.28 (0.82-1.09) H 01/29/17 12:36 Assessment/Plan cellulitis of the left foot discoloration of 2nd and 4th toe dm pvd leukocytosis plan continue iv abx wound to be looked at tomorrow monitor for fevers rest as per the surgery team and primary
--- NOTE | 2017-02-03 18:05 | PN ---
Progress Note (short form) - Note Progress Note: POD#4 He has no complaints of pain. Vital Signs Period Temp Pulse Resp BP Sys/Burrell Pulse Ox Last 24 Hr 98 F-98.6 F 56-66 16-20 122-153/58-75 99-99 PE: Left foot: Vac dressing removed, the wound base looks clean without drainage or discharge, foul odor with dressing change and the plantar surface is macerated from the vac dressing with skin peeling off along the plantar wound edge. CBC, BMP 02/01/17 06:00 02/01/17 06:00 Microbiology 01/31/17 17:26 Blood - Peripheral Venous Blood Culture - Preliminary NO GROWTH OBTAINED AFTER 72 HOURS, INCUBATION TO CONTINUE FOR 2 DAYS. 01/31/17 17:26 Blood - Peripheral Venous Blood Culture - Preliminary NO GROWTH OBTAINED AFTER 72 HOURS, INCUBATION TO CONTINUE FOR 2 DAYS. Laboratory Tests 02/03/17 02/03/17 11:53 16:23 POC Glucometer 280 245 A/P: s/p toe amp 2 thru 4 to the left foot, he remains afebrile Placed wet to dry dressing tonight and D/w Dr. Hernandez, wound appears clean but with foul odor May reapply vac dressing the am vs other modality after Dr. Hernandez sees the wound Continue IV abx as per ID Problem List - Problems (1) Gangrene of toe Code(s): I96 - GANGRENE, NOT ELSEWHERE CLASSIFIED
[2017-02-03] MEDS: MIRTAZAPINE 15 MG TABLET (FP) PO SCH (21:29)
[2017-02-03] MEDS: LATANOPROST 0.005% OPHTH SOLN 2.5ML BOTTLE OU SCH (22:22)
[2017-02-04] MEDS: PIPERACILLIN/TAZOB 3.375 GM/50 ML PRE-DOCKED IVPB SCH ×3 (02:13→17:51)
[2017-02-04] MEDS: metFORMIN HCL 500 MG TABLET (FP) PO SCH ×2 (07:06→17:51)
[2017-02-04] MEDS: INSULIN SLIDING SCALE (NOVOLOG) 1 VIAL SQ SCH ×4 (07:06→22:38)
--- NOTE | 2017-02-04 08:48 | PN ---
Progress Note, Physician Chief Complaint: No new complaints History of Present Illness: Wound open , has minimal sluff on it - Current Medication List Current Medications: Active Medications Acetaminophen (Tylenol -) 650 mg PO Q6H PRN PRN Reason: FEVER OR PAIN Last Admin: 02/01/17 01:48 Dose: 650 mg Amlodipine Besylate (Norvasc -) 5 mg PO DAILY [facility] Last Admin: 02/03/17 09:32 Dose: 5 mg Brimonidine Tartrate (Alphagan P 0.1% -) 1 drop OU BID [facility] Last Admin: 02/03/17 22:21 Dose: 1 drop Dorzolamide HCl (Trusopt 2%) 1 drop OU BID [facility] Last Admin: 02/03/17 22:21 Dose: 1 drop Insulin Aspart (Novolog Vial Sliding Scale -) 1 vial SQ ACHS [facility] PRN Reason: Protocol Last Admin: 02/04/17 07:06 Dose: 4 units Latanoprost (Xalatan 0.005% Eye Drops -) 1 drop OU HS [facility] Last Admin: 02/03/17 22:22 Dose: 1 drop Metformin HCl (Glucophage -) 500 mg PO BIDAC [facility] Last Admin: 02/04/17 07:06 Dose: 500 mg Metoprolol Succinate (Toprol Xl -) 100 mg PO DAILY [facility] Last Admin: 02/03/17 09:31 Dose: 100 mg Mirtazapine (Remeron -) 15 mg PO HS [facility] Last Admin: 02/03/17 21:29 Dose: 15 mg Piperacillin Sod/Tazobactam Sod (Zosyn 3.375gm Ivpb (Pre-Docked)) 3.375 gm IVPB Q8H-IV [facility] Last Admin: 02/04/17 02:13 Dose: 3.375 gm Timolol Maleate (Timoptic 0.5%) 1 drop OU BID [facility] Last Admin: 02/03/17 22:21 Dose: 1 drop - Objective Vital Signs: Vital Signs Temperature 99.3 F 02/04/17 06:00 Pulse Rate 63 02/04/17 06:00 Respiratory Rate 18 02/04/17 06:00 Blood Pressure 165/75 02/04/17 06:00 O2 Sat by Pulse Oximetry (%) 99 02/03/17 21:00 Constitutional: Yes: No Distress Eyes: Yes: WNL HENT: Yes: WNL Cardiovascular: Yes: WNL Respiratory: Yes: WNL Gastrointestinal: Yes: WNL ...Rectal Exam: Yes: Deferred Genitourinary: Yes: WNL Edema: No Peripheral Pulses WNL: Yes Wound/Incision: Yes: Unapproximated Neurological: Yes: Alert ...Motor Strength: WNL Psychiatric: Yes: WNL Labs: CBC, BMP 02/01/17 06:00 02/01/17 06:00 INR, PTT INR 1.28 (0.82-1.09) H 01/29/17 12:36 Assessment/Plan Will discuss with Dr Hernandez
--- NOTE | 2017-02-04 10:33 | PN ---
Progress Note (short form) - Note Progress Note: Vascular surgery Pt seen and examined. Dressing changed. Debridement of wound edges performed. Will place santyl today. Pt can go home with vac afshin. Will follow up in office on friday. Will enroll pt for HBO Spoke to family at bedside Jey Hernandez DO
[2017-02-04] MEDS: BRIMONIDINE TARTRATE 0.1% OPHTHALMIC 5 ML BOTTLE OU SCH ×2 (11:16→22:36)
[2017-02-04] MEDS: amLODIPine BESYLATE 5 MG TABLET (FP) PO SCH (11:16)
[2017-02-04] MEDS: METOPROLOL SUCCINATE 100 MG TAB.SR.24H (FP) PO SCH (11:16)
[2017-02-04] MEDS: TIMOLOL 0.5% OPHTHALMIC SOL 5 ML BOTTLE OU SCH ×2 (11:17→22:36)
[2017-02-04] MEDS: DORZOLAMIDE 2% HCL OPHTHALMIC SOLUTION 10 ML BOTTLE OU SCH ×2 (11:17→22:37)
[2017-02-04] MEDS: COLLAGENASE CLOSTRIDIUM HIST. 30 GRAMS TUBE TP SCH (12:13)
[2017-02-04] MEDS ORDERED: INSULIN (NOVOLOG) ASPART 100 UNITS/ML 10ML VIAL ONE (12:36)
[2017-02-04] MEDS ORDERED: PT OWN MED DRAWER 7, Y5N ONE (12:49)
--- NOTE | 2017-02-04 18:17 | PN ---
Progress Note, Physician History of Present Illness: patient doing well wound vac removed debridement of the wound done patient has no fevers - Current Medication List Current Medications: Active Medications Acetaminophen (Tylenol -) 650 mg PO Q6H PRN PRN Reason: FEVER OR PAIN Last Admin: 02/01/17 01:48 Dose: 650 mg Amlodipine Besylate (Norvasc -) 5 mg PO DAILY [facility] Last Admin: 02/04/17 11:16 Dose: 5 mg Brimonidine Tartrate (Alphagan P 0.1% -) 1 drop OU BID [facility] Last Admin: 02/04/17 11:16 Dose: 1 drop Collagenase (Santyl -) 1 applic TP DAILY [facility] Last Admin: 02/04/17 12:13 Dose: 1 applic Dorzolamide HCl (Trusopt 2%) 1 drop OU BID [facility] Last Admin: 02/04/17 11:17 Dose: 1 drop Insulin Aspart (Novolog Vial Sliding Scale -) 1 vial SQ ACHS [facility] PRN Reason: Protocol Last Admin: 02/04/17 17:52 Dose: 8 units Latanoprost (Xalatan 0.005% Eye Drops -) 1 drop OU HS [facility] Last Admin: 02/03/17 22:22 Dose: 1 drop Metformin HCl (Glucophage -) 500 mg PO BIDAC [facility] Last Admin: 02/04/17 17:51 Dose: 500 mg Metoprolol Succinate (Toprol Xl -) 100 mg PO DAILY [facility] Last Admin: 02/04/17 11:16 Dose: 100 mg Mirtazapine (Remeron -) 15 mg PO HS [facility] Last Admin: 02/03/17 21:29 Dose: 15 mg Piperacillin Sod/Tazobactam Sod (Zosyn 3.375gm Ivpb (Pre-Docked)) 3.375 gm IVPB Q8H-IV [facility] Last Admin: 02/04/17 17:51 Dose: 3.375 gm Timolol Maleate (Timoptic 0.5%) 1 drop OU BID [facility] Last Admin: 02/04/17 11:17 Dose: 1 drop - Objective Vital Signs: Vital Signs Temperature 99.0 F 02/04/17 15:08 Pulse Rate 68 02/04/17 15:08 Respiratory Rate 18 02/04/17 15:08 Blood Pressure 130/65 02/04/17 15:08 O2 Sat by Pulse Oximetry (%) 97 02/04/17 09:00 Constitutional: Yes: No Distress, Calm Cardiovascular: Yes: Regular Rate and Rhythm Respiratory: Yes: Regular, CTA Bilaterally Gastrointestinal: Yes: Normal Bowel Sounds, Soft Musculoskeletal: Yes: Other Extremities: Yes: Other Wound/Incision: Yes: Dressing Dry and Intact Neurological: Yes: Alert, Oriented Psychiatric: Yes: Alert, Oriented Labs: CBC, BMP 02/01/17 06:00 02/01/17 06:00 INR, PTT INR 1.28 (0.82-1.09) H 01/29/17 12:36 Assessment/Plan cellulitis of the left foot discoloration of 2nd and 4th toe dm pvd leukocytosis plan continue iv abx vac placed will lokt a the wound if clean and patient wihtout fever or chills will switch to oral abx
[2017-02-04] MEDS: MIRTAZAPINE 15 MG TABLET (FP) PO SCH (22:35)
[2017-02-04] MEDS: LATANOPROST 0.005% OPHTH SOLN 2.5ML BOTTLE OU SCH (22:37)
[2017-02-05] MEDS: PIPERACILLIN/TAZOB 3.375 GM/50 ML PRE-DOCKED IVPB SCH ×2 (02:21→10:05)
[2017-02-05] MEDS: metFORMIN HCL 500 MG TABLET (FP) PO SCH ×2 (06:38→18:04)
[2017-02-05] MEDS: INSULIN SLIDING SCALE (NOVOLOG) 1 VIAL SQ SCH ×3 (06:40→18:07)
--- NOTE | 2017-02-05 08:39 | PN ---
Progress Note (short form) - Note Progress Note: Pt feeling ok, no complaints of pain. Vital Signs Period Temp Pulse Resp BP Sys/Burrell Pulse Ox Last 24 Hr 98 F-99.0 F 61-68 18-20 130-177/65-78 97 PE: Left foot: wound base with minimal fibrinous material. No foul odor or drainage noted. Bone at wound base. no swelling to the leg. CBC, BMP 02/01/17 06:00 02/01/17 06:00 A/p: 81 yo male s/p debridement of left foot Wound cleaned by Dr. Hernandez yesterday, replaced santyl to wound base today. As per nursing staff, Dr. Cristobal from ID to evaluate the wound base and make recommendations on antibiotics. Can replace wound vac today after seen by ID, if going home the patient has his home vac at bedside. Follow-up with Dr Hernandez on Friday in wound care clinic. Problem List - Problems (1) Gangrene of toe Code(s): I96 - GANGRENE, NOT ELSEWHERE CLASSIFIED
[2017-02-05] MEDS ORDERED: PT OWN MED DRAWER 7, Y5N ONE (09:50)
[2017-02-05 10:05] LABS: BASOPHIL 0.7 % (0-2.0); EOSINOPHIL 3.5 % (0-4.5); MCH 23.8 pg (25.7-33.7); MCHC 31.9 g/dl (32.0-35.9); MEAN CELL VOLUME 74.6 fl (80-96); MEAN PLT VOLUME 7.8 fl (7.5-11.1); NEUTROPHILS 69.5 % (42.8-82.8); PLATELET COUNT 319 K/MM3 (134-434); RDW 16.4 % (11.9-15.9); WHITE BLOOD COUNT 10.5 K/mm3 (4.0-10.0)
[2017-02-05] MEDS: amLODIPine BESYLATE 5 MG TABLET (FP) PO SCH (10:05)
[2017-02-05] MEDS: BRIMONIDINE TARTRATE 0.1% OPHTHALMIC 5 ML BOTTLE OU SCH (10:05)
[2017-02-05] MEDS: COLLAGENASE CLOSTRIDIUM HIST. 30 GRAMS TUBE TP SCH (10:05)
[2017-02-05] MEDS: METOPROLOL SUCCINATE 100 MG TAB.SR.24H (FP) PO SCH (10:05)
[2017-02-05] MEDS: DORZOLAMIDE 2% HCL OPHTHALMIC SOLUTION 10 ML BOTTLE OU SCH (10:05)
[2017-02-05] MEDS: TIMOLOL 0.5% OPHTHALMIC SOL 5 ML BOTTLE OU SCH (10:05)
[2017-02-05 10:39] LABS: C-REACTIVE PROTEIN 5.7 MG/DL (0.00-0.3)
--- NOTE | 2017-02-05 10:47 | PN ---
Progress Note, Physician History of Present Illness: patient evaluated wound seen - Current Medication List Current Medications: Active Medications Acetaminophen (Tylenol -) 650 mg PO Q6H PRN PRN Reason: FEVER OR PAIN Last Admin: 02/01/17 01:48 Dose: 650 mg Amlodipine Besylate (Norvasc -) 5 mg PO DAILY [facility] Last Admin: 02/05/17 10:05 Dose: 5 mg Brimonidine Tartrate (Alphagan P 0.1% -) 1 drop OU BID [facility] Last Admin: 02/05/17 10:05 Dose: 1 drop Collagenase (Santyl -) 1 applic TP DAILY [facility] Last Admin: 02/05/17 10:05 Dose: 1 applic Dorzolamide HCl (Trusopt 2%) 1 drop OU BID [facility] Last Admin: 02/05/17 10:05 Dose: 1 drop Insulin Aspart (Novolog Vial Sliding Scale -) 1 vial SQ ACHS [facility] PRN Reason: Protocol Last Admin: 02/05/17 06:40 Dose: 4 units Latanoprost (Xalatan 0.005% Eye Drops -) 1 drop OU HS [facility] Last Admin: 02/04/17 22:37 Dose: 1 drop Metformin HCl (Glucophage -) 500 mg PO BIDAC [facility] Last Admin: 02/05/17 06:38 Dose: 500 mg Metoprolol Succinate (Toprol Xl -) 100 mg PO DAILY [facility] Last Admin: 02/05/17 10:05 Dose: 100 mg Mirtazapine (Remeron -) 15 mg PO HS [facility] Last Admin: 02/04/17 22:35 Dose: 15 mg Piperacillin Sod/Tazobactam Sod (Zosyn 3.375gm Ivpb (Pre-Docked)) 3.375 gm IVPB Q8H-IV [facility] Last Admin: 02/05/17 10:05 Dose: 3.375 gm Timolol Maleate (Timoptic 0.5%) 1 drop OU BID [facility] Last Admin: 02/05/17 10:05 Dose: 1 drop - Objective Vital Signs: Vital Signs Temperature 98 F 02/05/17 07:45 Pulse Rate 63 02/05/17 07:45 Respiratory Rate 20 02/05/17 07:45 Blood Pressure 147/71 02/05/17 07:45 O2 Sat by Pulse Oximetry (%) 97 02/04/17 09:00 Constitutional: Yes: No Distress, Calm Cardiovascular: Yes: Regular Rate and Rhythm Respiratory: Yes: Regular, CTA Bilaterally Gastrointestinal: Yes: Normal Bowel Sounds, Soft Musculoskeletal: Yes: Other Extremities: Yes: Other Wound/Incision: Yes: Other (mostly clean still with some slough debridement done ) Psychiatric: Yes: Alert, Oriented Labs: CBC, BMP 02/05/17 09:40 INR, PTT INR 1.28 (0.82-1.09) H 01/29/17 12:36 Assessment/Plan cellulitis of the left foot discoloration of 2nd and 4th toe dm pvd leukocytosis plan will change iv abx to oral wound vac to be placed follow up in wound care rest as per primary
[2017-02-05 10:51] LABS: ALBUMIN 2.5 g/dl (3.4-5.0); BILIRUBIN,TOTAL 0.3 mg/dL (0.2-1.0); CALCIUM 8.6 mg/dL (8.5-10.1); COCKROFT - GAULT 53.23; CREATININE 1.2 mg/dL (0.7-1.3); TOT PROT 6.8 g/dl (6.4-8.2)
[2017-02-05 12:15] VITALS: BP 127/57; PULSE 65; TEMP 98.1
[2017-02-05] MEDS ORDERED: INSULIN (NOVOLOG) ASPART 100 UNITS/ML 10ML VIAL ONE (12:34)
--- NOTE | 2017-02-05 15:03 | DS ---
Physical Examination Vital Signs: Vital Signs Temperature 98.1 F 02/05/17 10:00 Pulse Rate 65 02/05/17 10:00 Respiratory Rate 20 02/05/17 10:00 Blood Pressure 127/57 02/05/17 10:00 O2 Sat by Pulse Oximetry (%) 96 02/05/17 09:00 Findings/Remarks: S/P amputation of 2nd ,3rd and 4th toes of lt foot Wound clean,sugar under good controll DC home on PO antibiotics and IVac Constitutional: Yes: No Distress Eyes: Yes: WNL HENT: Yes: WNL Neck: Yes: WNL Cardiovascular: Yes: WNL Respiratory: Yes: WNL Gastrointestinal: Yes: WNL ...Rectal Exam: Yes: Deferred Musculoskeletal: Yes: WNL Labs: CBC, BMP 02/05/17 09:40 02/05/17 09:40 Discharge Summary Reason For Visit: GANGRENE OF TOE Current Active Problems Gangrene of toe (Acute) Condition: Stable - Instructions Referrals: Darron Presley MD [Primary Care Provider] - - Home Medications Comprehensive Discharge Medication List: Ambulatory Orders Amlodipine Besylate [Norvasc -] 10 mg PO DAILY 01/12/17 Amox-Tr/K Cl [Augmentin - 875Mg Tablet] 1 tab PO BID 01/12/17 Donepezil HCl 23 mg PO DAILY 01/12/17 Gabapentin [Neurontin -] 300 mg PO BID 01/12/17 Insulin Lispro Protamin/Lispro [Humalog Mix 75-25 Kwikpen] 27 unit SQ BIDAC 11/29 Memantine HCl [Namenda -] 10 mg PO BID 01/12/17 Metformin HCl 500 mg PO BIDAC 01/12/17 Metoprolol Succinate [Toprol Xl] 100 mg PO DAILY 01/12/17 Mirtazapine [Remeron -] 15 mg PO HS 01/12/17 Quetiapine Fumarate [Seroquel -] 50 mg PO HS 01/12/17 Silver Sulfadiazine 1% Top Cr [Silvadene -] 1 applic TP DAILY 01/12/17 Tamsulosin HCl [Flomax] 0.4 mg PO DAILY 01/12/17 Valsartan [Diovan] 160 mg PO BID 01/12/17 Bimatoprost [Lumigan] 1 drop OU HS 01/14/17 Brimonidine Tartrate [Alphagan P 0.1% -] 1 drop OU BID 01/14/17 Dorzolamide HCl/Timolol Maleat [Cosopt Eye Drops] 1 drop OU BID 01/14/17
[2017-02-05] MEDS ORDERED: AMOX TR/POT CLAV 500MG/125MG TABLETS (FP) PO SCH (17:30)
[2017-02-05] MEDS ORDERED: DOXYCYCLINE HYCLATE 100 MG CAPSULE PO SCH (18:00)
== END 2017-02-05 18:50 | disposition home health service (06) | DRG 256 ==
LOC: JER 11:41 → JERBED 12:18 → J8W 16:15
PROVIDERS: ADMIT Internal Medicine; ATTEND Internal Medicine
PROC: 0Y6W0Z0 Detachment at Left 4th Toe, Complete, Open Approach (ICD-10-PCS; 2017-01-30)
PROC: 0JBR0ZZ Excision of Left Foot Subcutaneous Tissue and Fascia, Open Approach (ICD-10-PCS; 2017-01-30)
PROC: 0Y6S0Z0 Detachment at Left 2nd Toe, Complete, Open Approach (ICD-10-PCS; principal; 2017-01-30 12:30)
DX: E11.52 Type 2 diabetes mellitus with diabetic peripheral angiopathy with gangrene (principal); L03.116 Cellulitis of left lower limb; D72.829 Elevated white blood cell count, unspecified; G30.0 Alzheimer's disease with early onset; F02.80 Dementia in other diseases classified elsewhere, unspecified severity, without behavioral disturbance, psychotic disturbance, mood disturbance, and anxiety; I10 Essential (primary) hypertension; Z79.4 Long term (current) use of insulin
CPT/HCPCS: 36415; 73660-TC; 80053; 82550; 83036; 84484; 85025; 85027; 85610; 85730; 86140; 87040; 88305-TC; 88311-TC; 93005; 93010; 94010; 94760; 97116-GP; 97161-GP; 99283-25

== ENCOUNTER 2017-02-27 14:19 | Inpatient (IN) | payer OTHER ==
--- NOTE | 2017-02-27 17:20 | PDOC ---
History of Present Illness - General History Source: Patient, Family Exam Limitations: No Limitations - History of Present Illness Initial Comments: 02/27/17 18:17 The patient is an 81 year old male, accompanied by family member, with a significant past medical history of diabetes, hypertension, hyperlipidemia, alzheimers, BPH, and depression/anxiety, who presents to the emergency department sent by PCP, Dr. Presley, for evaluation of left foot s/p amputation approximately 1 month ago. As per family member, the patient received amputations in the left 2nd-4th toes due to gangrene and discoloration. Since the surgery the patient has been able to ambulate with assistance of a cane or walker. Family member reports the patient had a TMax of approximately 99.5 F, 3 days ago. Family member denies any purulent drainage at the site of the wound. She reports bringing the patient to his PCP for evaluation of wound to left foot , and states the PCP recommended the patient follow-up in the ED. Pt had the wound vac removed last week and has been having daily wound dressing changes from visiting nurse. Patient denies any chills, headache, or dizziness. The patient denies any chest pain, shortness of breath, diaphoresis, palpitations, lower extremity edema. The patient denies abdominal pain, nausea, vomiting, diarrhea, constipation, or changes in urination patterns. Allergies: NKDA Surgical History: Amputation to the Left 2nd-4th toes Social History: Non Smoker. No ETOH or drug use. PCP: Dr. Presley Surgeon: Dr. Hernandez Program Coordinator: Dr. Chaney <Kirk Merrill - Last Filed: 02/27/17 19:04> <Yuniel Horton - Last Filed: 02/27/17 19:11> - General Chief Complaint: Wound Infection Stated Complaint: SENT BY PCP Time Seen by Provider: 02/27/17 16:57 Past History <Kirk Merrill - Last Filed: 02/27/17 19:04> - Past Medical History Anemia: No Asthma: No Cancer: No Cardiac Disorders: No CVA: No COPD: No CHF: No Dementia: Yes (early alzheimers) Diabetes: Yes GI Disorders: No Disorders: Yes (BPH) HTN: Yes Hypercholesterolemia: Yes Psychiatric Problems: Yes (depression/anxiety) Seizures: No Thyroid Disease: No - Surgical History Abdominal Surgery: No Appendectomy: No Cardiac Surgery: No Cholecystectomy: No Lung Surgery: No Neurologic Surgery: No Orthopedic Surgery: Yes (S/P LEFT FT 3RD DIGIT AMPUTATION 01/22/17) - Immunization History Immunization Up to Date: Yes - Psycho/Social/Smoking Cessation Hx Suicidal Ideation: No Smoking History: Never smoked Have you smoked in the past 12 months: No Hx Alcohol Use: No Drug/Substance Use Hx: No Substance Use Type: None Hx Substance Use Treatment: No <Yuniel Horton - Last Filed: 02/27/17 19:11> - Past Medical History Allergies/Adverse Reactions: Allergies Allergy/AdvReac Type Severity Reaction Status Date / Time No Known Allergies Allergy Verified 02/27/17 14:27 Home Medications: Ambulatory Orders Amlodipine Besylate [Norvasc -] 10 mg PO DAILY 01/12/17 Donepezil HCl 23 mg PO DAILY 01/12/17 Gabapentin [Neurontin -] 300 mg PO BID 01/12/17 Insulin Lispro Protamin/Lispro [Humalog Mix 75-25 Kwikpen] 27 unit SQ BIDAC 11/29 Memantine HCl [Namenda -] 10 mg PO BID 01/12/17 Metformin HCl 500 mg PO BIDAC 01/12/17 Metoprolol Succinate [Toprol Xl] 100 mg PO DAILY 01/12/17 Mirtazapine [Remeron -] 15 mg PO HS 01/12/17 Quetiapine Fumarate [Seroquel -] 50 mg PO HS 01/12/17 Silver Sulfadiazine 1% Top Cr [Silvadene -] 1 applic TP DAILY 01/12/17 Tamsulosin HCl [Flomax] 0.4 mg PO DAILY 01/12/17 Valsartan [Diovan] 160 mg PO BID 01/12/17 Bimatoprost [Lumigan] 1 drop OU HS 01/14/17 Brimonidine Tartrate [Alphagan P 0.1% -] 1 drop OU BID 01/14/17 Dorzolamide HCl/Timolol Maleat [Cosopt Eye Drops] 1 drop OU BID 01/14/17 Collagenase Clostridium Hist. [Santyl] 1 applic TP DAILY #90 oint...g. 02/21/17 Review of Systems - Review of Systems Able to Perform ROS?: Yes Comments:: 02/27/17 18:17 CONSTITUTIONAL: Present: +low grade Fever No reported: Chills, Diaphoresis, Generalized Weakness, Malaise, Loss of Appetite HEENT: No reported: Rhinorrhea, Nasal Congestion, Throat Pain, Throat Swelling, Difficulty Swallowing, Mouth Swelling, Ear Pain, Eye Pain, Visual Changes CARDIOVASCULAR: No reported: Chest Pain, Syncope, Palpitations, Irregular Heart Rate, Lightheadedness, Peripheral Edema RESPIRATORY: No reported: Cough, Shortness of Breath, SOB with Exertion, Orthopnea, Wheezing , Stridor, Hemoptysis GASTROINTESTINAL: No reported: Abdominal pain, Abdominal Distension, Nausea, Vomiting, Diarrhea, Constipation, Melena, Hematochezia GENITOURINARY: No reported: Dysuria, Frequency, Urgency, Hesitancy, Flank Pain, Genital Pain MUSCULOSKELETAL: No reported: Myalgia, Arthralgia, Joint Swelling, Back pain, Neck Pain SKIN: Present: +Wound infection to the left 2nd-4th toes s/p amputation. No reported: Rash, Itching, Pallor HEMEATOLOGIC/IMMUNOLOGIC: No reported: Easy Bleeding, Easy Bruising, Lymphadenopathy, Frequent infections ENDOCRINE: No reported: Unexplained Weight Gain, Unexplained Weight Loss, Heat Intolerance , Cold Intolerance NEUROLOGIC: No reported: Headache, Focal Weakness, Paresthesias, Vertigo, Lightheadedness, Unsteady Gait, Seizure, Mental Status Changes, Incontinence PSYCHIATRIC: No reported: Anxiety, Depression <MerrillKirk glaser - Last Filed: 02/27/17 19:04> *Physical Exam - Vital Signs Last Vital Signs Temp Pulse Resp BP Pulse Ox 98 F 72 20 133/68 96 02/27/17 14:27 02/27/17 14:27 02/27/17 14:27 02/27/17 14:27 02/27/17 17:53 - Physical Exam Comments: 02/27/17 18:18 GENERAL: The patient is awake, alert, and fully oriented, Nontoxic - in no acute distress. HEAD: Normocephalic, atraumatic. EYES: extraocular movements intact, sclera anicteric, conjunctiva clear. ENT: Normal voice, Moist mucous membranes. NECK: Normal range of motion, supple LUNGS: Breath sounds equal, clear to auscultation bilaterally. No wheezes, no rhonchi, no rales. HEART: Regular rate and rhythm, normal S1 and S2 without murmur, rub or gallop. ABDOMEN: Soft, nontender, normoactive bowel sounds. No guarding, no rebound. . No CVA tenderness EXTREMITIES: +Warmth to LLE to alejo, +foul smelling discharge from L transmetatarsal site (2-4digits) +bone visible, +edema to LLE w/o calf tenderness NEUROLOGICAL: No facial assymetry, Normal speech, moving all 4 extremities spontaneously and symmetrically. PSYCH: Normal mood, normal affect. SKIN: Warm, Dry, normal turgor. <Kirk Merrill - Last Filed: 02/27/17 19:04> - Vital Signs Last Vital Signs Temp Pulse Resp BP Pulse Ox 98 F 72 20 133/68 98 02/27/17 14:27 02/27/17 14:27 02/27/17 14:27 02/27/17 14:27 02/27/17 14:27 <Yuniel Horton - Last Filed: 02/27/17 19:11> Heart Score/ECG Review - ECG Impressions Comment:: 02/27/17 19:11 Twelve-lead EKG was performed and reviewed by me. There is normal sinus rhythm with a normal rate. Rate of 81 Sinus arrhythmia noted Abnormal R wave progression <Yuniel Horton - Last Filed: 02/27/17 19:11> ED Treatment Course - LABORATORY CBC & Chemistry Diagram: 02/27/17 17:23 02/27/17 17:23 - ADDITIONAL ORDERS Additional order review: 02/27/17 17:23 RBC 4.45 MCV 73.4 L MCHC 32.2 RDW 16.9 H MPV 8.3 Neutrophils % 70.2 Lymphocytes % 17.7 Monocytes % 9.7 Eosinophils % 1.6 Basophils % 0.8 - Medications Given in the ED: ED Medications Discontinued Medications Generic Name Dose Route Start Last Admin Trade Name Efrenq PRN Reason Stop Dose Admin Piperacillin Sod/Tazobactam Sod 4.5 gm 02/27/17 18:00 02/27/17 18:15 Zosyn 4.5gm Ivpb (Pre-Docked) IVPB 02/27/17 18:01 4.5 gm ONCE ONE Administration <Kirk Merrill - Last Filed: 02/27/17 19:04> - LABORATORY CBC & Chemistry Diagram: 02/27/17 17:23 02/27/17 17:23 <Yuniel Horton - Last Filed: 02/27/17 19:11> Medical Decision Making - Medical Decision Making 02/27/17 19:04 First call placed to Dr. Presley at 19:03. Case discussed with Dr. Ellis at this time. <Kirk Merrill - Last Filed: 02/27/17 19:04> - Medical Decision Making 02/27/17 17:51 81y M hx of dm, htn, hlm, alzheimers, bph, sent to the ED from dr. Sanchez office for evaluation of foot wound, pt s/p amupuation abou 1 momth ago, s/p wound vac removal last week. no systemic complaints, although pt does have low grade frever at home per family member. on exam pt with wound that appears purulent discharge, foul smelling, warmth of foot up to alejo concern for possible osteo, vs wound infection will give zosyn will likely need admission and vascular consult 02/27/17 18:01 02/27/17 19:[address] lee agreed [facility] admission Case discussed in detail with admitting physician including history, physical exam and ancillary studies. Admitting physician has assumed care for the patient, will follow all pending diagnostics and will complete the evaluation and treatment. <Yuniel Horton - Last Filed: 02/27/17 19:11> *DC/Admit/Observation/Transfer - Attestations Scribe Attestion: 02/27/17 18:18 Documentation prepared by Kirk Merrill, acting as medical records tech for Yuniel Horton MD. 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
[2017-02-27] MEDS ORDERED: PIPERACILLIN/TAZOB 4.5 GM/100 ML PRE-DOCKED IVPB ONE (18:00)
[2017-02-27 18:07] LABS: BASOPHIL 0.8 % (0-2.0); EOSINOPHIL 1.6 % (0-4.5); MCH 23.7 pg (25.7-33.7); MCHC 32.2 g/dl (32.0-35.9); MEAN CELL VOLUME 73.4 fl (80-96); MEAN PLT VOLUME 8.3 fl (7.5-11.1); NEUTROPHILS 70.2 % (42.8-82.8); PLATELET COUNT 266 K/MM3 (134-434); RDW 16.9 % (11.9-15.9); WHITE BLOOD COUNT 13.2 K/mm3 (4.0-10.0)
[2017-02-27] MEDS ORDERED: PIPERACILLIN/TAZOB 4.5 GM 100 ML IVPB ONE (18:07)
[2017-02-27 18:22] LABS: INR 1.15 (0.82-1.09); PROTHROMBIN TIME (PATIENT) 12.7 SEC (9.98-11.88)
[2017-02-27 18:37] LABS: ALK PHOS 107 U/L (45-117); ANION GAP 10 (8-16); BILIRUBIN,TOTAL 0.3 mg/dL (0.2-1.0); CALCIUM 9.2 mg/dL (8.5-10.1); CO2 29 mmol/L (21-32); COCKROFT - GAULT 66.14; GLUCOSE,RANDOM 180 mg/dL (74-106); SGOT/AST 35 U/L (15-37); SGPT/ALT 52 U/L (12-78); TOT PROT 7.6 g/dl (6.4-8.2)
[2017-02-27] MEDS ORDERED: VANCOMYCIN 1,000 MG in DEXTROSE 5%-WATER - 250 ML IVPB ONE (19:06)
[2017-02-27] MEDS ORDERED: VANCOMYCIN 1 GRAM (PRE-DOCKED) 250 ML IVPB ONE (19:19)
[2017-02-27] MEDS ORDERED: ACETAMINOPHEN 325 MG TABLET (FP) PO ONE (20:49)
[2017-02-27] MEDS ORDERED: ACETAMINOPHEN 325 MG TABLET (FP) ONE (20:54)
[2017-02-27 22:27] VITALS: BMI 27.0
[2017-02-27] MEDS ORDERED: MIRTAZAPINE 15 MG TABLET (FP) PO SCH (22:45)
[2017-02-27] MEDS ORDERED: QUEtiapine FUMARATE 50 MG TABLET PO SCH (22:45)
[2017-02-27] MEDS ORDERED: LATANOPROST 0.005% OPHTH SOLN 2.5ML BOTTLE OU SCH (22:45)
[2017-02-28] MEDS: MEMANTINE HCL 10 MG TABLET (FP) PO SCH ×3 (00:55→21:27)
[2017-02-28] MEDS: VALSARTAN 160 MG TABLET (UD) PO SCH ×3 (00:55→21:27)
[2017-02-28] MEDS: TIMOLOL 0.5% OPHTHALMIC SOL 5 ML BOTTLE OU SCH ×3 (00:56→21:29)
[2017-02-28] MEDS: GABAPENTIN 300 MG CAPSULE (FP) PO SCH ×3 (00:56→21:27)
[2017-02-28] MEDS: DORZOLAMIDE 2% HCL OPHTHALMIC SOLUTION 10 ML BOTTLE OU SCH ×3 (00:56→21:32)
[2017-02-28] MEDS: metFORMIN HCL 500 MG TABLET (FP) PO SCH ×2 (06:39→18:15)
[2017-02-28] MEDS: INSULIN (NOVOLOG MIX 70/30) 100 UNITS/ML MDV SQ SCH ×2 (06:42→18:15)
[2017-02-28] MEDS: INSULIN SLIDING SCALE (NOVOLOG) 1 VIAL SQ SCH ×4 (06:42→21:28)
[2017-02-28] MEDS ORDERED: TAMSULOSIN HCL 0.4 MG CAP.ER.24H (FP) PO SCH (08:30)
[2017-02-28] MEDS ORDERED: METOPROLOL SUCCINATE 100 MG TAB.SR.24H (FP) PO SCH (10:00)
[2017-02-28] MEDS ORDERED: BRIMONIDINE TARTRATE 0.1% OPHTHALMIC 5 ML BOTTLE OU SCH (10:00)
[2017-02-28] MEDS ORDERED: DONEPEZIL 23 MG PO SCH (10:00)
[2017-02-28] MEDS ORDERED: amLODIPine BESYLATE 10 MG TABLET (FP) PO SCH (10:00)
[2017-02-28] MEDS ORDERED: COLLAGENASE CLOSTRIDIUM HIST. 30 GRAMS TUBE TP SCH (10:00)
[2017-02-28] MEDS ORDERED: SILVER SULFADIAZINE 1% TOP CREAM 50 GM JAR TP SCH (10:00)
[2017-02-28] MEDS ORDERED: PT OWN MED DRAWER 7, Y5N ONE ×6 (10:17→22:35)
--- NOTE | 2017-02-28 11:00 | HP ---
DATE OF ADMISSION: DATE OF DICTATION: 02/28/2017 HISTORY OF PRESENT ILLNESS: This is an 81-year-old male, a diabetic, with peripheral vascular disease, has an ulcer on his foot status post amputation of the 2nd, 3rd, and 4th toes. Wound was not healing. Bone was exposed. So, he got admitted yesterday. He is on IV antibiotics, evaluated by ID, Dr. Cristobal. Patient is also followed by Dr. Hernandez, vascular surgeon. PHYSICAL EXAMINATION: General: This morning, he is awake and talking. Vital signs: BP is 144/76, pulse 70, respirations 20, temperature 98. At the time of admission, he had 101. HEENT: Unremarkable. Neck: supple. No JVD. Lungs: Clear. Heart: S1, S2 normal. No S3, S4. Abdomen: Soft. Extremities: Legs, no edema. The left foot ulcer is status post toe amputations, he has dressing intact. LABORATORY REPORTS: WBC 13.2, hemoglobin 10.5, hematocrit 32, ESR is 117. Chemistry: Electrolytes are normal. Creatinine 1, blood sugar 180, albumin 3.4. X-ray of the chest negative. Vascular study, no venous thrombosis. IMPRESSION: Diabetic ulcer on the foot, possible osteomyelitis, diabetes. PLAN: IV antibiotics, vascular surgery consult, Dr. Hernandez. I will discuss the case with Dr. Hernandez and decide whether patient has to go to OR today. VIKRAM ORDOÑEZ M.D. [id number]
--- NOTE | 2017-02-28 11:04 | CONSULT ---
Consult Consult Specialty:: infectious diseases Reason for Consultation:: left foot /wound infection - History of Present Illness Chief Complaint: wound infection History of Present Illness: The patient is an 81 year old male, a with a significant past medical history of diabetes, hypertension, hyperlipidemia, alzheimers, BPH, and depression/ anxiety, for evaluation of left foot s/p amputation approximately 1 month ago. patient received amputations in the left 2nd-4th toes due to gangrene and discoloration. Since the surgery the patient has been able to ambulate with assistance of a cane or walker. patient since last couple of days started spiking fever patient had wound vac till recently and which was removed patient denies any other symptoms patient was evaluated by vascular today and the plan is to take the patient for excision and debridement of the wound - History Source History Provided By: Patient, Family Member Limitations to Obtaining History: Poor Historian - Alcohol/Substance Use Hx Alcohol Use: No - Smoking History Smoking history: Never smoked Have you smoked in the past 12 months: No Home Medications - Allergies Allergies/Adverse Reactions: Allergies Allergy/AdvReac Type Severity Reaction Status Date / Time No Known Allergies Allergy Verified 02/27/17 14:27 - Home Medications Home Medications: Ambulatory Orders Amlodipine Besylate [Norvasc -] 10 mg PO DAILY 01/12/17 Donepezil HCl 23 mg PO DAILY 01/12/17 Gabapentin [Neurontin -] 300 mg PO BID 01/12/17 Insulin Lispro Protamin/Lispro [Humalog Mix 75-25 Kwikpen] 27 unit SQ BIDAC 11/29 Memantine HCl [Namenda -] 10 mg PO BID 01/12/17 Metformin HCl 500 mg PO BIDAC 01/12/17 Metoprolol Succinate [Toprol Xl] 100 mg PO DAILY 01/12/17 Mirtazapine [Remeron -] 15 mg PO HS 01/12/17 Quetiapine Fumarate [Seroquel -] 50 mg PO HS 01/12/17 Silver Sulfadiazine 1% Top Cr [Silvadene -] 1 applic TP DAILY 01/12/17 Tamsulosin HCl [Flomax] 0.4 mg PO DAILY 01/12/17 Valsartan [Diovan] 160 mg PO BID 01/12/17 Bimatoprost [Lumigan] 1 drop OU HS 01/14/17 Brimonidine Tartrate [Alphagan P 0.1% -] 1 drop OU BID 01/14/17 Dorzolamide HCl/Timolol Maleat [Cosopt Eye Drops] 1 drop OU BID 01/14/17 Collagenase Clostridium Hist. [Santyl] 1 applic TP DAILY #90 oint...g. 02/21/17 Review of Systems - Review of Systems Constitutional: reports: Fever Eyes: reports: No Symptoms HENT: reports: No Symptoms Neck: reports: No Symptoms Cardiovascular: reports: No Symptoms Respiratory: reports: No Symptoms Gastrointestinal: reports: No Symptoms Genitourinary: reports: No Symptoms Musculoskeletal: reports: Other Integumentary: reports: Erythema, Wound, Other Neurological: reports: No Symptoms Endocrine: reports: No Symptoms Hematology/Lymphatic: reports: No Symptoms Psychiatric: reports: No Symptoms Physical Exam Vital Signs: Vital Signs Temperature 98.6 F 02/28/17 06:00 Pulse Rate 70 02/28/17 06:00 Respiratory Rate 20 02/28/17 06:00 Blood Pressure 144/76 02/28/17 06:00 O2 Sat by Pulse Oximetry (%) 97 02/27/17 21:53 Constitutional: Yes: No Distress, Calm Eyes: Yes: Conjunctiva Clear Neck: Yes: Supple, Trachea Midline Cardiovascular: Yes: Regular Rate and Rhythm Respiratory: Yes: Regular, CTA Bilaterally Gastrointestinal: Yes: Normal Bowel Sounds, Soft Musculoskeletal: Yes: Other Extremities: Yes: Other Wound/Incision: Yes: Dressing Removed, Other (wound with draiange and infected tissue,macerated tissue) Neurological: Yes: Alert, Oriented Psychiatric: Yes: Alert, Oriented Imaging - Results Chest X-ray: Report Reviewed, Image Reviewed X-ray: Report Reviewed, Image Reviewed Assessment/Plan wound infection dm pvd leukocytosis plan will start abx on the patient will check for cx and sensitivities patient going to or continue to monitor for fever
[2017-02-28] MEDS ORDERED: PIPERACILLIN/TAZOB 3.375 GM 50 ML IVPB SCH (11:15)
[2017-02-28] MEDS ORDERED: PROPOFOL 20 ML ONE (16:09)
--- NOTE | 2017-02-28 16:16 | EKG ---
Test Reason : Blood Pressure : / mmHG Vent. Rate : 081 BPM Atrial Rate : 081 BPM P-R Int : 178 ms QRS Dur : 092 ms QT Int : 372 ms P-R-T Axes : 057 -15 051 degrees QTc Int : 432 ms SINUS RHYTHM WITH MARKED SINUS ARRHYTHMIA POSSIBLE LEFT ATRIAL ENLARGEMENT SEPTAL INFARCT (CITED ON OR BEFORE 29-JAN-2017) ABNORMAL ECG WHEN COMPARED WITH ECG OF 29-JAN-2017 12:38, QUESTIONABLE CHANGE IN INITIAL FORCES OF SEPTAL LEADS Confirmed by ANIKA PLAZA MD ([id number]) on 02/28/2017 4:16:16 PM Referred By: Confirmed By:ANIKA PLAZA MD
[2017-02-28] MEDS ORDERED: LIDOCAINE HCL 1%, 10 MG/ML (50 mL VIAL) IJ ONE (16:23)
[2017-02-28] MEDS ORDERED: LACTATED RINGERS SOLUTION 1,000 ML IV SCH ×2 (17:00→17:22)
--- NOTE | 2017-02-28 17:09 | OP ---
Operative Note - Note: Operative Date: 02/28/17 Pre-Operative Diagnosis: Left foot infection Operation: Excisional debridement left foot -- skin, subcutaneous tissue, muscle , tendon, bone. Findings: Cx taken Post-Operative Diagnosis: Same as Pre-op Surgeon: Jey Hernandez Anesthesia: Fractional Estimated Blood Loss (mls): 30 Operative Report Dictated: Yes
--- NOTE | 2017-02-28 17:11 | PN ---
Progress Note (short form) - Note Progress Note: Vascular Surgery Debridement of left foot performed. Bone taken back to ray. all necrotic tissue removed. Will watch wound over the weekend. Booked for TMA at 10am on if need be. Jey Hernandez DO
[2017-02-28] MEDS ORDERED: INSULIN (NOVOLOG MIX 70/30) 100 UNITS/ML MDV SQ ONE (18:17)
[2017-02-28] MEDS: PIPERACILLIN/TAZOB 3.375 GM 50 ML IVPB SCH (18:28)
[2017-02-28] MEDS: QUEtiapine FUMARATE 50 MG TABLET PO SCH (21:27)
[2017-02-28] MEDS: MIRTAZAPINE 15 MG TABLET (FP) PO SCH (21:28)
[2017-02-28] MEDS: LATANOPROST 0.005% OPHTH SOLN 2.5ML BOTTLE OU SCH (21:31)
[2017-03-01] MEDS: PIPERACILLIN/TAZOB 3.375 GM 50 ML IVPB SCH ×3 (01:32→17:22)
[2017-03-01] MEDS: metFORMIN HCL 500 MG TABLET (FP) PO SCH ×2 (06:47→16:36)
[2017-03-01] MEDS: INSULIN (NOVOLOG MIX 70/30) 100 UNITS/ML MDV SQ SCH ×2 (06:47→16:37)
[2017-03-01] MEDS: INSULIN SLIDING SCALE (NOVOLOG) 1 VIAL SQ SCH ×4 (06:51→23:13)
[2017-03-01] MEDS: TAMSULOSIN HCL 0.4 MG CAP.ER.24H (FP) PO SCH (08:35)
--- NOTE | 2017-03-01 09:22 | PN ---
Progress Note (short form) - Note Progress Note: Anesthesia Post op Alert and awake Vital Signs Temperature 99.4 F 03/01/17 06:00 Pulse Rate 73 03/01/17 06:00 Respiratory Rate 16 03/01/17 06:00 Blood Pressure 149/74 03/01/17 06:00 O2 Sat by Pulse Oximetry (%) 98 02/28/17 21:00 CBC, BMP 02/27/17 17:23 02/27/17 17:23 Current Active Problems Diabetes mellitus (Acute) Wound infection (Acute) s/p left foot debridement Doing well post op Continue current care Dick Esqueda MD
[2017-03-01] MEDS ORDERED: PT OWN MED DRAWER 7, Y5N ONE ×3 (09:40→22:27)
[2017-03-01] MEDS: GABAPENTIN 300 MG CAPSULE (FP) PO SCH ×2 (09:44→22:38)
[2017-03-01] MEDS: METOPROLOL SUCCINATE 100 MG TAB.SR.24H (FP) PO SCH (09:44)
[2017-03-01] MEDS: VALSARTAN 160 MG TABLET (UD) PO SCH ×2 (09:44→22:37)
[2017-03-01] MEDS: amLODIPine BESYLATE 10 MG TABLET (FP) PO SCH (09:44)
[2017-03-01] MEDS: MEMANTINE HCL 10 MG TABLET (FP) PO SCH ×2 (09:45→22:37)
[2017-03-01] MEDS: BRIMONIDINE TARTRATE 0.1% OPHTHALMIC 5 ML BOTTLE OU SCH (09:45)
[2017-03-01] MEDS: COLLAGENASE CLOSTRIDIUM HIST. 30 GRAMS TUBE TP SCH (09:46)
[2017-03-01] MEDS: DORZOLAMIDE 2% HCL OPHTHALMIC SOLUTION 10 ML BOTTLE OU SCH ×2 (09:48→22:47)
[2017-03-01] MEDS: TIMOLOL 0.5% OPHTHALMIC SOL 5 ML BOTTLE OU SCH ×2 (09:48→22:49)
[2017-03-01] MEDS ORDERED: SILVER SULFADIAZINE 1% TOP CREAM 50 GM JAR TP SCH (10:00)
[2017-03-01] MEDS ORDERED: VANCOMYCIN 1,250 MG in DEXTROSE 5%-WATER - 250 ML IVPB SCH (11:30)
[2017-03-01] MEDS ORDERED: INSULIN (NOVOLOG) ASPART 100 UNITS/ML 10ML VIAL ONE ×2 (12:10→18:38)
[2017-03-01] MEDS ORDERED: INSULIN (NOVOLOG MIX 70/30) 100 UNITS/ML MDV SQ ONE ×2 (12:10→18:38)
--- NOTE | 2017-03-01 13:20 | PN ---
Progress Note, Physician Chief Complaint: C/o Mild Left Foot pain History of Present Illness: 81 year old male past medical history of diabetes, hypertension, hyperpiesia, Alzheimers, BPH, and depression/anxiety admitted with Left foot post operative infection S/P amputations left 2nd-4th toes due to gangrene 1 monnth ago, evaluted by vascular surgery and Id underwent debrinement of the wound possible left TTA on Friday. Patient denies any chills, chest pain, shortness of breath , diaphoresis, palpitations, lower extremity edema. T - Current Medication List Current Medications: Active Medications Amlodipine Besylate (Norvasc -) 10 mg PO DAILY [facility] Last Admin: 03/01/17 09:44 Dose: 10 mg Brimonidine Tartrate (Alphagan P 0.1% -) 1 drop OU DAILY [facility] Last Admin: 03/01/17 09:45 Dose: 1 drop Collagenase (Santyl -) 1 applic TP DAILY [facility] Last Admin: 03/01/17 09:46 Dose: 1 applic Dorzolamide HCl (Trusopt 2%) 1 drop OU BID [facility] Last Admin: 03/01/17 09:48 Dose: 1 drop Gabapentin (Neurontin -) 300 mg PO BID [facility] Last Admin: 03/01/17 09:44 Dose: 300 mg Vancomycin HCl 1,250 mg/ (Dextrose) 250 mls @ 250 mls/hr IVPB DAILY [facility] PRN Reason: Protocol Last Admin: 03/01/17 11:07 Dose: 250 mls/hr Piperacillin Sod/Tazobactam Sod (Zosyn 3.375gm Ivpb (Pre-Docked)) 50 mls @ 100 mls/hr IVPB Q8H-IV [facility] PRN Reason: Protocol Last Admin: 03/01/17 09:43 Dose: 100 mls/hr Insulin Aspart (Novolog Vial Sliding Scale -) 1 vial SQ ACHS [facility] PRN Reason: Protocol Last Admin: 03/01/17 12:11 Dose: 2 units Insulin Aspart (Novolog Mix 70/30 Vial) 27 units SQ BIDI [facility] Last Admin: 03/01/17 06:47 Dose: 27 units Latanoprost (Xalatan 0.005% Eye Drops -) 1 drop OU HS [facility] Last Admin: 02/28/17 21:31 Dose: 1 drop Memantine (Namenda -) 10 mg PO BID [facility] Last Admin: 03/01/17 09:45 Dose: 10 mg Metformin HCl (Glucophage -) 500 mg PO BIDAC [facility] Last Admin: 03/01/17 06:47 Dose: 500 mg Metoprolol Succinate (Toprol Xl -) 100 mg PO DAILY [facility] Last Admin: 03/01/17 09:44 Dose: 100 mg Mirtazapine (Remeron -) 15 mg PO HS [facility] Last Admin: 02/28/17 21:28 Dose: 15 mg Non-Formulary Medication (Non-Formulary Med) 1 each PO BID [facility] Quetiapine Fumarate (Seroquel -) 50 mg PO HS [facility] Last Admin: 02/28/17 21:27 Dose: 50 mg Tamsulosin HCl (Flomax -) 0.4 mg PO DAILY@0830 [facility] Last Admin: 03/01/17 08:35 Dose: 0.4 mg Timolol Maleate (Timoptic 0.5%) 1 drop OU BID [facility] Last Admin: 03/01/17 09:48 Dose: 1 drop Valsartan (Diovan -) 160 mg PO BID [facility] Last Admin: 03/01/17 09:44 Dose: 160 mg - Objective Vital Signs: Vital Signs Temperature 99.0 F 03/01/17 10:00 Pulse Rate 70 03/01/17 10:00 Respiratory Rate 18 03/01/17 10:00 Blood Pressure 112/52 03/01/17 10:00 O2 Sat by Pulse Oximetry (%) 96 03/01/17 10:00 Constitutional: Yes: Well Nourished, No Distress, Calm Eyes: Yes: WNL, Conjunctiva Clear, EOM Intact HENT: Yes: WNL, Atraumatic, Normocephalic Neck: Yes: WNL, Trachea Midline Cardiovascular: Yes: WNL, Regular Rate and Rhythm, S1, S2. No: JVD, Murmur Respiratory: Yes: WNL, Regular, CTA Bilaterally Gastrointestinal: Yes: WNL, Normal Bowel Sounds ...Rectal Exam: Yes: Deferred Genitourinary: Yes: Anuria, CVA Tenderness - Right. No: Bladder Distention Musculoskeletal: Yes: WNL, Back Pain, Joint Stiffness Extremities: Yes: WNL. No: Amputation, Calf Tenderness Edema: No Peripheral Pulses WNL: Yes Peripheral Pulses: Left Doralis Pedis: 1+, Right Dorsalis Pedis: 1+ Wound/Incision: Yes: Dressing Dry and Intact Neurological: Yes: WNL, Alert ...Motor Strength: WNL, LUE, LLE, RUE, RLE Labs: INR, PTT INR 1.15 (0.82-1.09) H 02/27/17 17:23 Problem List - Problems (1) T2DM (type 2 diabetes mellitus) Assessment/Plan: On Insulin at present Fs are well controlled cont same Code(s): E11.9 - TYPE 2 DIABETES MELLITUS WITHOUT COMPLICATIONS Qualifiers: Diabetes mellitus complication status: with circulatory complication Diabetes mellitus complication detail: with peripheral angiopathy with gangrene (2) HTN (hypertension) Assessment/Plan: Well controlled cont current home meds Code(s): I10 - ESSENTIAL (PRIMARY) HYPERTENSION Qualifiers: Hypertension type: essential hypertension Qualified Code(s): I10 - Essential (primary) hypertension (3) Gangrene of toe Assessment/Plan: S/P amputation cont wound care IV abx Code(s): I96 - GANGRENE, NOT ELSEWHERE CLASSIFIED (4) Cellulitis in diabetic foot Assessment/Plan: Wound debrinement cont IV abx and wound care Code(s): E13.628 - OTH DIABETES MELLITUS WITH OTHER SKIN COMPLICATIONS L03.119 - CELLULITIS OF UNSPECIFIED PART OF LIMB (5) PVD (peripheral vascular disease) Assessment/Plan: Left LE gangrene s/p amputation Code(s): I73.9 - PERIPHERAL VASCULAR DISEASE, UNSPECIFIED
[2017-03-01] MEDS: ARICEPT 23 MG PO SCH (14:53)
--- NOTE | 2017-03-01 18:18 | PN ---
Progress Note, Physician History of Present Illness: post debridement of the wound leg in dressing which appears wet no complaints - Current Medication List Current Medications: Active Medications Amlodipine Besylate (Norvasc -) 10 mg PO DAILY [facility] Last Admin: 03/01/17 09:44 Dose: 10 mg Brimonidine Tartrate (Alphagan P 0.1% -) 1 drop OU DAILY [facility] Last Admin: 03/01/17 09:45 Dose: 1 drop Collagenase (Santyl -) 1 applic TP DAILY [facility] Last Admin: 03/01/17 09:46 Dose: 1 applic Dorzolamide HCl (Trusopt 2%) 1 drop OU BID [facility] Last Admin: 03/01/17 09:48 Dose: 1 drop Gabapentin (Neurontin -) 300 mg PO BID [facility] Last Admin: 03/01/17 09:44 Dose: 300 mg Piperacillin Sod/Tazobactam Sod (Zosyn 3.375gm Ivpb (Pre-Docked)) 50 mls @ 100 mls/hr IVPB Q8H-IV [facility] PRN Reason: Protocol Last Admin: 03/01/17 17:22 Dose: 100 mls/hr Insulin Aspart (Novolog Vial Sliding Scale -) 1 vial SQ ACHS [facility] PRN Reason: Protocol Last Admin: 03/01/17 16:35 Dose: Not Given Insulin Aspart (Novolog Mix 70/30 Vial) 27 units SQ BIDI [facility] Last Admin: 03/01/17 16:37 Dose: 27 units Latanoprost (Xalatan 0.005% Eye Drops -) 1 drop OU HS [facility] Last Admin: 02/28/17 21:31 Dose: 1 drop Memantine (Namenda -) 10 mg PO BID [facility] Last Admin: 03/01/17 09:45 Dose: 10 mg Metformin HCl (Glucophage -) 500 mg PO BIDAC [facility] Last Admin: 03/01/17 16:36 Dose: 500 mg Metoprolol Succinate (Toprol Xl -) 100 mg PO DAILY [facility] Last Admin: 03/01/17 09:44 Dose: 100 mg Mirtazapine (Remeron -) 15 mg PO HS [facility] Last Admin: 02/28/17 21:28 Dose: 15 mg Aricept 23mg-Pt's Own Medication- Non- Formulary Med 1 each PO DAILY@0900 [facility] Last Admin: 03/01/17 14:53 Dose: 1 each Quetiapine Fumarate (Seroquel -) 50 mg PO HS [facility] Last Admin: 02/28/17 21:27 Dose: 50 mg Tamsulosin HCl (Flomax -) 0.4 mg PO DAILY@0830 [facility] Last Admin: 03/01/17 08:35 Dose: 0.4 mg Timolol Maleate (Timoptic 0.5%) 1 drop OU BID [facility] Last Admin: 03/01/17 09:48 Dose: 1 drop Valsartan (Diovan -) 160 mg PO BID [facility] Last Admin: 03/01/17 09:44 Dose: 160 mg - Objective Vital Signs: Vital Signs Temperature 98.6 F 03/01/17 14:13 Pulse Rate 63 03/01/17 14:13 Respiratory Rate 18 03/01/17 14:13 Blood Pressure 122/55 03/01/17 14:13 O2 Sat by Pulse Oximetry (%) 96 03/01/17 10:00 Constitutional: Yes: No Distress, Calm Cardiovascular: Yes: Regular Rate and Rhythm Respiratory: Yes: Regular, CTA Bilaterally Gastrointestinal: Yes: Normal Bowel Sounds, Soft Musculoskeletal: Yes: WNL Extremities: Yes: Other Integumentary: Yes: Other Wound/Incision: Yes: Other Neurological: Yes: Alert, Oriented Psychiatric: Yes: Alert, Oriented Labs: INR, PTT INR 1.15 (0.82-1.09) H 02/27/17 17:23 Assessment/Plan wound infection dm pvd leukocytosis plan cx result noted will stop vanco rest ct zosyn rest as per vascular
[2017-03-01] MEDS: QUEtiapine FUMARATE 50 MG TABLET PO SCH (22:39)
[2017-03-01] MEDS: MIRTAZAPINE 15 MG TABLET (FP) PO SCH (22:47)
[2017-03-01] MEDS: LATANOPROST 0.005% OPHTH SOLN 2.5ML BOTTLE OU SCH (22:48)
[2017-03-02] MEDS: PIPERACILLIN/TAZOB 3.375 GM 50 ML IVPB SCH ×3 (03:22→17:20)
[2017-03-02] MEDS: INSULIN SLIDING SCALE (NOVOLOG) 1 VIAL SQ SCH ×4 (06:23→21:40)
[2017-03-02 06:48] LABS: BASOPHIL 0.4 % (0-2.0); EOSINOPHIL 5.4 % (0-4.5); MCH 24.3 pg (25.7-33.7); MCHC 32.6 g/dl (32.0-35.9); MEAN CELL VOLUME 74.5 fl (80-96); MEAN PLT VOLUME 7.9 fl (7.5-11.1); NEUTROPHILS 52.1 % (42.8-82.8); PLATELET COUNT 286 K/MM3 (134-434); RDW 17.4 % (11.9-15.9); WHITE BLOOD COUNT 7.9 K/mm3 (4.0-10.0)
[2017-03-02 07:17] LABS: ALBUMIN 2.8 g/dl (3.4-5.0); ANION GAP 10 (8-16); CALCIUM 8.8 mg/dL (8.5-10.1); CO2 31 mmol/L (21-32); GLUCOSE,RANDOM 117 mg/dL (74-106); SGOT/AST 33 U/L (15-37); SGPT/ALT 52 U/L (12-78)
[2017-03-02 07:22] LABS: ALK PHOS 97 U/L (45-117); BILIRUBIN,TOTAL 0.7 mg/dL (0.2-1.0); COCKROFT - GAULT 58.21; CREATININE 1.1 mg/dL (0.7-1.3); TOT PROT 7.1 g/dl (6.4-8.2)
[2017-03-02] MEDS: metFORMIN HCL 500 MG TABLET (FP) PO SCH ×2 (08:10→17:19)
[2017-03-02] MEDS: INSULIN (NOVOLOG MIX 70/30) 100 UNITS/ML MDV SQ SCH ×2 (08:11→17:20)
[2017-03-02] MEDS: TAMSULOSIN HCL 0.4 MG CAP.ER.24H (FP) PO SCH (08:11)
[2017-03-02] MEDS ORDERED: PT OWN MED DRAWER 7, Y5N ONE ×3 (09:28→20:23)
[2017-03-02] MEDS: ARICEPT 23 MG PO SCH (09:35)
[2017-03-02] MEDS: METOPROLOL SUCCINATE 100 MG TAB.SR.24H (FP) PO SCH (09:36)
[2017-03-02] MEDS: BRIMONIDINE TARTRATE 0.1% OPHTHALMIC 5 ML BOTTLE OU SCH (09:36)
[2017-03-02] MEDS: MEMANTINE HCL 10 MG TABLET (FP) PO SCH ×2 (09:37→21:39)
[2017-03-02] MEDS: amLODIPine BESYLATE 10 MG TABLET (FP) PO SCH (09:37)
[2017-03-02] MEDS: VALSARTAN 160 MG TABLET (UD) PO SCH ×2 (09:37→21:39)
[2017-03-02] MEDS: GABAPENTIN 300 MG CAPSULE (FP) PO SCH ×2 (09:37→21:39)
[2017-03-02] MEDS: COLLAGENASE CLOSTRIDIUM HIST. 30 GRAMS TUBE TP SCH (09:38)
[2017-03-02] MEDS: TIMOLOL 0.5% OPHTHALMIC SOL 5 ML BOTTLE OU SCH ×2 (09:38→21:41)
[2017-03-02] MEDS: DORZOLAMIDE 2% HCL OPHTHALMIC SOLUTION 10 ML BOTTLE OU SCH ×2 (09:39→21:42)
--- NOTE | 2017-03-02 15:20 | PN ---
Progress Note, Physician Chief Complaint: C/o Mild Left Foot pain, remained afebrile. History of Present Illness: 81 year old male past medical history of diabetes, hypertension, hyperpiesia, Alzheimers, BPH, and depression/anxiety admitted with Left foot post operative infection S/P amputations left 2nd-4th toes due to gangrene 1 monnth ago, evaluted by vascular surgery and Id underwent debrinement of the wound possible left TTA on Friday. Patient denies any chills, chest pain, shortness of breath , diaphoresis, palpitations, lower extremity edema. T - Current Medication List Current Medications: Active Medications Amlodipine Besylate (Norvasc -) 10 mg PO DAILY [facility] Last Admin: 03/02/17 09:37 Dose: 10 mg Brimonidine Tartrate (Alphagan P 0.1% -) 1 drop OU DAILY [facility] Last Admin: 03/02/17 09:36 Dose: 1 drop Collagenase (Santyl -) 1 applic TP DAILY [facility] Last Admin: 03/02/17 09:38 Dose: 1 applic Dorzolamide HCl (Trusopt 2%) 1 drop OU BID [facility] Last Admin: 03/02/17 09:39 Dose: 1 drop Gabapentin (Neurontin -) 300 mg PO BID [facility] Last Admin: 03/02/17 09:37 Dose: 300 mg Piperacillin Sod/Tazobactam Sod (Zosyn 3.375gm Ivpb (Pre-Docked)) 50 mls @ 100 mls/hr IVPB Q8H-IV [facility] PRN Reason: Protocol Last Admin: 03/02/17 09:35 Dose: 100 mls/hr Insulin Aspart (Novolog Vial Sliding Scale -) 1 vial SQ ACHS [facility] PRN Reason: Protocol Last Admin: 03/02/17 12:11 Dose: Not Given Insulin Aspart (Novolog Mix 70/30 Vial) 27 units SQ BIDI [facility] Last Admin: 03/02/17 08:11 Dose: 27 units Latanoprost (Xalatan 0.005% Eye Drops -) 1 drop OU HS [facility] Last Admin: 03/01/17 22:48 Dose: 1 drop Memantine (Namenda -) 10 mg PO BID [facility] Last Admin: 03/02/17 09:37 Dose: 10 mg Metformin HCl (Glucophage -) 500 mg PO BIDAC [facility] Last Admin: 03/02/17 08:10 Dose: 500 mg Metoprolol Succinate (Toprol Xl -) 100 mg PO DAILY [facility] Last Admin: 03/02/17 09:36 Dose: 100 mg Mirtazapine (Remeron -) 15 mg PO [facility] Last Admin: 03/01/17 22:47 Dose: 15 mg Aricept 23mg-Pt's Own Medication- Non- Formulary Med 1 each PO DAILY@0900 [facility] Last Admin: 03/02/17 09:35 Dose: 1 each Quetiapine Fumarate (Seroquel -) 50 mg PO [facility] Last Admin: 03/01/17 22:39 Dose: 50 mg Tamsulosin HCl (Flomax -) 0.4 mg PO DAILY@0830 [facility] Last Admin: 03/02/17 08:11 Dose: 0.4 mg Timolol Maleate (Timoptic 0.5%) 1 drop OU BID [facility] Last Admin: 03/02/17 09:38 Dose: 1 drop Valsartan (Diovan -) 160 mg PO BID [facility] Last Admin: 03/02/17 09:37 Dose: 160 mg - Objective Vital Signs: Vital Signs Temperature 98.3 F 03/02/17 10:00 Pulse Rate 71 03/02/17 10:00 Respiratory Rate 18 03/02/17 10:00 Blood Pressure 145/74 03/02/17 10:00 O2 Sat by Pulse Oximetry (%) 99 03/02/17 10:00 Constitutional: Yes: Well Nourished, No Distress, Calm Eyes: Yes: WNL, Conjunctiva Clear, EOM Intact HENT: Yes: WNL, Atraumatic, Normocephalic Neck: Yes: WNL, Supple, Trachea Midline Cardiovascular: Yes: WNL, Regular Rate and Rhythm, S1, S2. No: JVD, Murmur Respiratory: Yes: WNL, Regular, CTA Bilaterally Gastrointestinal: Yes: WNL, Normal Bowel Sounds, Soft Musculoskeletal: Yes: WNL Extremities: Yes: Other (Left foot indressing) Edema: Yes Edema: LLE: Trace Peripheral Pulses: Left Doralis Pedis: 1+, Right Dorsalis Pedis: 1+ Neurological: Yes: WNL, Alert, Oriented ...Motor Strength: WNL, LUE, LLE, RUE, RLE Labs: CBC, BMP 03/02/17 05:40 03/02/17 05:40 INR, PTT INR 1.15 (0.82-1.09) H 02/27/17 17:23 - ....Imaging Other: Pending, Report Reviewed, Image Reviewed, Other Problem List - Problems (1) T2DM (type 2 diabetes mellitus) Assessment/Plan: On Insulin at present Fs are well controlled cont same Code(s): E11.9 - TYPE 2 DIABETES MELLITUS WITHOUT COMPLICATIONS Qualifiers: Diabetes mellitus complication status: with circulatory complication Diabetes mellitus complication detail: with peripheral angiopathy with gangrene (2) HTN (hypertension) Assessment/Plan: Well controlled cont current home meds Code(s): I10 - ESSENTIAL (PRIMARY) HYPERTENSION Qualifiers: Hypertension type: essential hypertension Qualified Code(s): I10 - Essential (primary) hypertension (3) Gangrene of toe Assessment/Plan: S/P amputation cont wound care IV abx, wound grew Poly-microbial growth sensitivity is pending. Code(s): I96 - GANGRENE, NOT ELSEWHERE CLASSIFIED (4) Cellulitis in diabetic foot Assessment/Plan: Wound debrinement cont IV abx and wound care (5) PVD (peripheral vascular disease) Assessment/Plan: Left LE gangrene s/p amputation Code(s): I73.9 - PERIPHERAL VASCULAR DISEASE, UNSPECIFIED
[2017-03-02] MEDS ORDERED: INSULIN (NOVOLOG MIX 70/30) 100 UNITS/ML MDV SQ ONE (17:37)
[2017-03-02] MEDS ORDERED: INSULIN (NOVOLOG) ASPART 100 UNITS/ML 10ML VIAL ONE (20:21)
[2017-03-02] MEDS: MIRTAZAPINE 15 MG TABLET (FP) PO SCH (21:41)
[2017-03-02] MEDS: QUEtiapine FUMARATE 50 MG TABLET PO SCH (21:41)
[2017-03-02] MEDS: LATANOPROST 0.005% OPHTH SOLN 2.5ML BOTTLE OU SCH (21:43)
[2017-03-03] MEDS: PIPERACILLIN/TAZOB 3.375 GM 50 ML IVPB SCH ×2 (02:29→11:09)
[2017-03-03] MEDS: INSULIN (NOVOLOG MIX 70/30) 100 UNITS/ML MDV SQ SCH ×2 (06:29→16:53)
[2017-03-03] MEDS: metFORMIN HCL 500 MG TABLET (FP) PO SCH (06:29)
[2017-03-03] MEDS: INSULIN SLIDING SCALE (NOVOLOG) 1 VIAL SQ SCH ×4 (06:30→22:53)
[2017-03-03] MEDS ORDERED: INSULIN DETEMIR 100 UNITS/ML MDV SQ ONE (06:56)
[2017-03-03] MEDS ORDERED: INSULIN (NOVOLOG MIX 70/30) 100 UNITS/ML MDV SQ ONE (06:57)
[2017-03-03] MEDS ORDERED: INSULIN (NOVOLOG) ASPART 100 UNITS/ML 10ML VIAL ONE (06:57)
[2017-03-03] MEDS ORDERED: PT OWN MED DRAWER 7, Y5N ONE ×3 (06:59→11:22)
[2017-03-03 07:46] LABS: BASOPHIL 0.4 % (0-2.0); EOSINOPHIL 4.7 % (0-4.5); MCH 24.1 pg (25.7-33.7); MCHC 32.6 g/dl (32.0-35.9); MEAN PLT VOLUME 7.8 fl (7.5-11.1); NEUTROPHILS 55.3 % (42.8-82.8); PLATELET COUNT 260 K/MM3 (134-434); RDW 16.8 % (11.9-15.9); WHITE BLOOD COUNT 7.7 K/mm3 (4.0-10.0)
[2017-03-03 08:37] LABS: ALBUMIN 2.4 g/dl (3.4-5.0); SGPT/ALT 45 U/L (12-78)
[2017-03-03 08:44] LABS: ALK PHOS 92 U/L (45-117); ANION GAP 11 (8-16); BILIRUBIN,TOTAL 0.3 mg/dL (0.2-1.0); CALCIUM 8.9 mg/dL (8.5-10.1); CO2 27 mmol/L (21-32); COCKROFT - GAULT 64.03; GLUCOSE,RANDOM 101 mg/dL (74-106); SGOT/AST 27 U/L (15-37); TOT PROT 6.4 g/dl (6.4-8.2)
[2017-03-03] MEDS: ARICEPT 23 MG PO SCH (09:00)
[2017-03-03] MEDS: TAMSULOSIN HCL 0.4 MG CAP.ER.24H (FP) PO SCH (09:42)
[2017-03-03] MEDS: TIMOLOL 0.5% OPHTHALMIC SOL 5 ML BOTTLE OU SCH ×2 (10:00→22:54)
[2017-03-03] MEDS: DORZOLAMIDE 2% HCL OPHTHALMIC SOLUTION 10 ML BOTTLE OU SCH ×2 (11:11→22:54)
[2017-03-03] MEDS: GABAPENTIN 300 MG CAPSULE (FP) PO SCH ×2 (11:13→22:52)
[2017-03-03] MEDS: METOPROLOL SUCCINATE 100 MG TAB.SR.24H (FP) PO SCH (11:13)
[2017-03-03] MEDS: MEMANTINE HCL 10 MG TABLET (FP) PO SCH ×2 (11:14→22:52)
[2017-03-03] MEDS: amLODIPine BESYLATE 10 MG TABLET (FP) PO SCH (11:14)
[2017-03-03] MEDS: VALSARTAN 160 MG TABLET (UD) PO SCH ×2 (11:14→22:52)
[2017-03-03] MEDS: BRIMONIDINE TARTRATE 0.1% OPHTHALMIC 5 ML BOTTLE OU SCH (11:14)
[2017-03-03] MEDS: COLLAGENASE CLOSTRIDIUM HIST. 30 GRAMS TUBE TP SCH (11:17)
--- NOTE | 2017-03-03 14:00 | SPA.PREOP ---
- PRE-OP NOTE Dx: left foot gangrene Planned Procedure: left foot TMA Surgeon: Dr. Hernandez Last Vital Signs Temp Pulse Resp BP Pulse Ox 98.9 F 68 20 140/58 98 03/03/17 10:00 03/03/17 10:00 03/03/17 10:00 03/03/17 10:00 03/03/17 09:00 Lab Results WBC 7.7 K/mm3 (4.0-10.0) 03/03/17 06:47 RBC 4.19 M/mm3 (4.00-5.60) 03/03/17 06:47 Hgb 10.1 GM/dL (11.7-16.9) L 03/03/17 06:47 Hct 31.0 % (35.4-49) L 03/03/17 06:47 MCV 74.0 fl (80-96) L 03/03/17 06:47 MCHC 32.6 g/dl (32.0-35.9) 03/03/17 06:47 RDW 16.8 % (11.9-15.9) H 03/03/17 06:47 Plt Count 260 K/MM3 (134-434) 03/03/17 06:47 Sodium 144 mmol/L (136-145) 03/03/17 06:47 Potassium 3.8 mmol/L (3.5-5.1) 03/03/17 06:47 Chloride 106 mmol/L (98-107) 03/03/17 06:47 Carbon Dioxide 27 mmol/L (21-32) 03/03/17 06:47 Anion Gap 11 (8-16) 03/03/17 06:47 BUN 22 mg/dL (7-18) H 03/03/17 06:47 Creatinine 1.0 mg/dL (0.7-1.3) 03/03/17 06:47 Random Glucose 101 mg/dL (74-106) 03/03/17 06:47 Calcium 8.9 mg/dL (8.5-10.1) 03/03/17 06:47 Blood Type O POSITIVE 02/27/17 17:23 Antibody Screen Negative 02/27/17 17:23 INR 1.15 (0.82-1.09) H 02/27/17 17:23 Laboratory Tests 03/02/17 03/03/1717 21:38 06:28 11:33 POC Glucometer 150 102 140 - IMAGING Chest X-ray: Report Reviewed (02/27-no NAIE) X-ray: Report Reviewed (left foot 02/27-distructive changes to 2,3,4 toe(amp site )) EKG: Report Reviewed (02/27-SR rate 81) Other: Report Reviewed (DVT study of LLE 02/27, no evidnece of clot) - ASSESSMENT/PLAN 1. Make NPO after midnight except po meds 2. Please Medically optimization / clearance pt for left foot TMA 3. Consent to be obtained by the surgeon 4. scheduled insulin dose held for the am, will continue with sliding scale Visit type - Case Type Case Type: ED Admission - Emergency Emergency Visit: Yes ED Registration Date: 02/27/17 Care time: The patient presented to the Emergency Department on the above date and was hospitalized for further evaluation of their emergent condition. - New patient This patient is new to me today: No - Critical Care Critical Care patient: No
--- NOTE | 2017-03-03 14:48 | PN ---
Progress Note, Physician Chief Complaint: No c/o Left Foot pain, remained afebrile. Schedule for surgery in morning. History of Present Illness: 81 year old male past medical history of diabetes, hypertension, hyperpiesia, Alzheimers, BPH, and depression/anxiety admitted with Left foot post operative infection S/P amputations left 2nd-4th toes due to gangrene 1 monnth ago, evaluated by vascular surgery and Id underwent debrinement of the wound possible left TTA on Friday. Patient denies any chills, chest pain, shortness of breath, diaphoresis, palpitations, lower extremity edema. T - Current Medication List Current Medications: Active Medications Amlodipine Besylate (Norvasc -) 10 mg PO DAILY [facility] Last Admin: 03/03/17 11:14 Dose: 10 mg Brimonidine Tartrate (Alphagan P 0.1% -) 1 drop OU DAILY [facility] Last Admin: 03/03/17 11:14 Dose: 1 drop Collagenase (Santyl -) 1 applic TP DAILY [facility] Last Admin: 03/03/17 11:17 Dose: 1 applic Dorzolamide HCl (Trusopt 2%) 1 drop OU BID [facility] Last Admin: 03/03/17 11:11 Dose: 1 drop Gabapentin (Neurontin -) 300 mg PO BID [facility] Last Admin: 03/03/17 11:13 Dose: 300 mg Piperacillin Sod/Tazobactam Sod (Zosyn 3.375gm Ivpb (Pre-Docked)) 50 mls @ 100 mls/hr IVPB Q8H-IV [facility] PRN Reason: Protocol Last Admin: 03/03/17 11:09 Dose: 100 mls/hr Insulin Aspart (Novolog Vial Sliding Scale -) 1 vial SQ ACHS [facility] PRN Reason: Protocol Last Admin: 03/03/17 11:36 Dose: Not Given Insulin Aspart (Novolog Mix 70/30 Vial) 27 units SQ BIDI [facility] Last Admin: 03/03/17 06:29 Dose: 27 units Latanoprost (Xalatan 0.005% Eye Drops -) 1 drop OU HS [facility] Last Admin: 03/02/17 21:43 Dose: 1 drop Memantine (Namenda -) 10 mg PO BID [facility] Last Admin: 03/03/17 11:14 Dose: 10 mg Metformin HCl (Glucophage -) 500 mg PO BIDAC [facility] Last Admin: 03/03/17 06:29 Dose: 500 mg Metoprolol Succinate (Toprol Xl -) 100 mg PO DAILY [facility] Last Admin: 03/03/17 11:13 Dose: 100 mg Mirtazapine (Remeron -) 15 mg PO [facility] Last Admin: 03/02/17 21:41 Dose: 15 mg Aricept 23mg-Pt's Own Medication- Non- Formulary Med 1 each PO DAILY@0900 [facility] Last Admin: 03/03/17 09:00 Dose: 1 each Quetiapine Fumarate (Seroquel -) 50 mg PO [facility] Last Admin: 03/02/17 21:41 Dose: 50 mg Tamsulosin HCl (Flomax -) 0.4 mg PO DAILY@0830 [facility] Last Admin: 03/03/17 09:42 Dose: 0.4 mg Timolol Maleate (Timoptic 0.5%) 1 drop OU BID [facility] Last Admin: 03/02/17 21:41 Dose: 1 drop Valsartan (Diovan -) 160 mg PO BID [facility] Last Admin: 03/03/17 11:14 Dose: 160 mg - Objective Vital Signs: Vital Signs Temperature 98.9 F 03/03/17 10:00 Pulse Rate 68 03/03/17 10:00 Respiratory Rate 20 03/03/17 10:00 Blood Pressure 140/58 03/03/17 10:00 O2 Sat by Pulse Oximetry (%) 98 03/03/17 09:00 Labs: CBC, BMP 03/03/17 06:47 03/03/17 06:47 INR, PTT INR 1.15 (0.82-1.09) H 02/27/17 17:23 Problem List - Problems (1) T2DM (type 2 diabetes mellitus) Assessment/Plan: On Insulin at present Fs are well controlled cont same Code(s): E11.9 - TYPE 2 DIABETES MELLITUS WITHOUT COMPLICATIONS Qualifiers: Diabetes mellitus complication status: with circulatory complication Diabetes mellitus complication detail: with peripheral angiopathy with gangrene (2) HTN (hypertension) Assessment/Plan: Well controlled cont current home meds Code(s): I10 - ESSENTIAL (PRIMARY) HYPERTENSION Qualifiers: Hypertension type: essential hypertension Qualified Code(s): I10 - Essential (primary) hypertension (3) Gangrene of toe Assessment/Plan: S/P amputation cont wound care IV abx, wound grew Poly-microbial growth sensitivity is pending. Patient is scedule for transtarsal amputation in am. Code(s): I96 - GANGRENE, NOT ELSEWHERE CLASSIFIED (4) Cellulitis in diabetic foot (5) PVD (peripheral vascular disease) Assessment/Plan: Left LE gangrene s/p amputation, schedule for transtarsal amputation in am. Code(s): I73.9 - PERIPHERAL VASCULAR DISEASE, UNSPECIFIED
--- NOTE | 2017-03-03 17:03 | PN ---
Progress Note, Physician History of Present Illness: patient stable post debridement still not feeling well vascular following - Current Medication List Current Medications: Active Medications Amlodipine Besylate (Norvasc -) 10 mg PO DAILY [facility] Last Admin: 03/03/17 11:14 Dose: 10 mg Brimonidine Tartrate (Alphagan P 0.1% -) 1 drop OU DAILY [facility] Last Admin: 03/03/17 11:14 Dose: 1 drop Collagenase (Santyl -) 1 applic TP DAILY [facility] Last Admin: 03/03/17 11:17 Dose: 1 applic Dorzolamide HCl (Trusopt 2%) 1 drop OU BID [facility] Last Admin: 03/03/17 11:11 Dose: 1 drop Gabapentin (Neurontin -) 300 mg PO BID [facility] Last Admin: 03/03/17 11:13 Dose: 300 mg Piperacillin Sod/Tazobactam Sod (Zosyn 3.375gm Ivpb (Pre-Docked)) 50 mls @ 100 mls/hr IVPB Q8H-IV [facility] PRN Reason: Protocol Last Admin: 03/03/17 11:09 Dose: 100 mls/hr Insulin Aspart (Novolog Vial Sliding Scale -) 1 vial SQ ACHS [facility] PRN Reason: Protocol Last Admin: 03/03/17 16:53 Dose: 4 units Insulin Aspart (Novolog Mix 70/30 Vial) 27 units SQ BIDI [facility] Last Admin: 03/03/17 16:53 Dose: 27 units Latanoprost (Xalatan 0.005% Eye Drops -) 1 drop OU HS [facility] Last Admin: 03/02/17 21:43 Dose: 1 drop Memantine (Namenda -) 10 mg PO BID [facility] Last Admin: 03/03/17 11:14 Dose: 10 mg Metoprolol Succinate (Toprol Xl -) 100 mg PO DAILY [facility] Last Admin: 03/03/17 11:13 Dose: 100 mg Mirtazapine (Remeron -) 15 mg PO [facility] Last Admin: 03/02/17 21:41 Dose: 15 mg Aricept 23mg-Pt's Own Medication- Non- Formulary Med 1 each PO DAILY@0900 [facility] Last Admin: 03/03/17 09:00 Dose: 1 each Quetiapine Fumarate (Seroquel -) 50 mg PO [facility] Last Admin: 03/02/17 21:41 Dose: 50 mg Tamsulosin HCl (Flomax -) 0.4 mg PO DAILY@0830 [facility] Last Admin: 03/03/17 09:42 Dose: 0.4 mg Timolol Maleate (Timoptic 0.5%) 1 drop OU BID [facility] Last Admin: 03/03/17 10:00 Dose: 1 drop Valsartan (Diovan -) 160 mg PO BID [facility] Last Admin: 03/03/17 11:14 Dose: 160 mg - Objective Vital Signs: Vital Signs Temperature 98.4 F 03/03/17 14:02 Pulse Rate 65 03/03/17 14:02 Respiratory Rate 18 03/03/17 14:02 Blood Pressure 146/71 03/03/17 14:02 O2 Sat by Pulse Oximetry (%) 98 03/03/17 09:00 Constitutional: Yes: No Distress, Calm Cardiovascular: Yes: Regular Rate and Rhythm Respiratory: Yes: Regular, CTA Bilaterally Gastrointestinal: Yes: Normal Bowel Sounds, Soft Musculoskeletal: Yes: Other Extremities: Yes: Other Wound/Incision: Yes: Dressing Dry and Intact Neurological: Yes: Alert, Oriented Psychiatric: Yes: Alert, Oriented Labs: CBC, BMP 03/03/17 06:47 03/03/17 06:47 INR, PTT INR 1.15 (0.82-1.09) H 02/27/17 17:23 Assessment/Plan wound infection dm pvd leukocytosis plan continue zosyn wound care vascular to follow rest as per primary
[2017-03-03] MEDS: CEFTRIAXONE 100 ML IVPB SCH (17:37)
--- NOTE | 2017-03-03 19:25 | PN ---
Progress Note (short form) - Note Progress Note: Vascular surgery Pt seen and examined. Debridement site left foot looks very clean. Palpable pulse. FAmily wants definitive surgery with tma. booked for 9am. Jey Hernandez DO
[2017-03-03] MEDS: QUEtiapine FUMARATE 50 MG TABLET PO SCH (22:51)
[2017-03-03] MEDS: MIRTAZAPINE 15 MG TABLET (FP) PO SCH (22:52)
[2017-03-03] MEDS: LATANOPROST 0.005% OPHTH SOLN 2.5ML BOTTLE OU SCH (22:54)
[2017-03-04] MEDS: INSULIN SLIDING SCALE (NOVOLOG) 1 VIAL SQ SCH ×4 (06:05→21:40)
[2017-03-04] MEDS ORDERED: INSULIN (NOVOLOG MIX 70/30) 100 UNITS/ML MDV SQ ONE ×2 (07:44→17:40)
[2017-03-04] MEDS: TAMSULOSIN HCL 0.4 MG CAP.ER.24H (FP) PO SCH (08:30)
[2017-03-04] MEDS ORDERED: LIDOCAINE HCL 1%, 10 MG/ML (20ML VIAL) ONE (08:48)
[2017-03-04] MEDS ORDERED: LIDOCAINE HCL 2% (20ML MULTI-DOSE VIAL) NR ONE (09:21)
[2017-03-04] MEDS ORDERED: ceFAZolin SODIUM 1 GM VIAL ONE (09:24)
[2017-03-04] MEDS ORDERED: LIDOCAINE HCL 2% (50ML VIAL) INF ONE ×3 (09:25→09:34)
[2017-03-04] MEDS ORDERED: ceFAZolin SODIUM 1 GM VIAL IVPB ONE (09:25)
[2017-03-04] MEDS: MEMANTINE HCL 10 MG TABLET (FP) PO SCH ×2 (09:54→21:39)
[2017-03-04] MEDS: VALSARTAN 160 MG TABLET (UD) PO SCH ×2 (09:54→21:38)
[2017-03-04] MEDS: BRIMONIDINE TARTRATE 0.1% OPHTHALMIC 5 ML BOTTLE OU SCH (09:54)
[2017-03-04] MEDS: ARICEPT 23 MG PO SCH (09:54)
[2017-03-04] MEDS: COLLAGENASE CLOSTRIDIUM HIST. 30 GRAMS TUBE TP SCH (09:55)
[2017-03-04] MEDS: GABAPENTIN 300 MG CAPSULE (FP) PO SCH ×2 (09:55→21:39)
[2017-03-04] MEDS: METOPROLOL SUCCINATE 100 MG TAB.SR.24H (FP) PO SCH (09:55)
[2017-03-04] MEDS: TIMOLOL 0.5% OPHTHALMIC SOL 5 ML BOTTLE OU SCH ×2 (09:55→21:39)
[2017-03-04] MEDS: amLODIPine BESYLATE 10 MG TABLET (FP) PO SCH (09:55)
[2017-03-04] MEDS: DORZOLAMIDE 2% HCL OPHTHALMIC SOLUTION 10 ML BOTTLE OU SCH ×2 (09:55→21:39)
--- NOTE | 2017-03-04 10:13 | PN ---
Progress Note, Physician History of Present Illness: patient stable spiking fevers vascular planning to take the patient to the operating room - Current Medication List Current Medications: Active Medications Amlodipine Besylate (Norvasc -) 10 mg PO DAILY [facility] Last Admin: 03/04/17 09:55 Dose: Not Given Brimonidine Tartrate (Alphagan P 0.1% -) 1 drop OU DAILY [facility] Last Admin: 03/04/17 09:54 Dose: Not Given Collagenase (Santyl -) 1 applic TP DAILY [facility] Last Admin: 03/04/17 09:55 Dose: Not Given Dorzolamide HCl (Trusopt 2%) 1 drop OU BID [facility] Last Admin: 03/04/17 09:55 Dose: Not Given Gabapentin (Neurontin -) 300 mg PO BID [facility] Last Admin: 03/04/17 09:55 Dose: Not Given Ceftriaxone Sodium (Rocephin 2gm Ivpb (Pre-Docked)) 100 mls @ 200 mls/hr IVPB DAILY [facility] Last Admin: 03/03/17 17:37 Dose: 200 mls/hr Insulin Aspart (Novolog Vial Sliding Scale -) 1 vial SQ [facility] PRN Reason: Protocol Last Admin: 03/04/17 06:05 Dose: Not Given Insulin Aspart (Novolog Mix 70/30 Vial) 27 units SQ BIDI [facility] Last Admin: 03/03/17 16:53 Dose: 27 units Latanoprost (Xalatan 0.005% Eye Drops -) 1 drop OU [facility] Last Admin: 03/03/17 22:54 Dose: 1 drop Memantine (Namenda -) 10 mg PO BID [facility] Last Admin: 03/04/17 09:54 Dose: Not Given Metoprolol Succinate (Toprol Xl -) 100 mg PO DAILY [facility] Last Admin: 03/04/17 09:55 Dose: Not Given Mirtazapine (Remeron -) 15 mg PO [facility] Last Admin: 03/03/17 22:52 Dose: 15 mg Aricept 23mg-Pt's Own Medication- Non- Formulary Med 1 each PO DAILY@0900 [facility] Last Admin: 03/04/17 09:54 Dose: Not Given Quetiapine Fumarate (Seroquel -) 50 mg PO [facility] Last Admin: 03/03/17 22:51 Dose: 50 mg Tamsulosin HCl (Flomax -) 0.4 mg PO DAILY@0830 [facility] Last Admin: 03/04/17 08:30 Dose: Not Given Timolol Maleate (Timoptic 0.5%) 1 drop OU BID [facility] Last Admin: 03/04/17 09:55 Dose: Not Given Valsartan (Diovan -) 160 mg PO BID [facility] Last Admin: 03/04/17 09:54 Dose: Not Given - Objective Vital Signs: Vital Signs Temperature 98.1 F 03/04/17 08:25 Pulse Rate 62 03/04/17 08:25 Respiratory Rate 18 03/04/17 08:25 Blood Pressure 150/82 03/04/17 08:25 O2 Sat by Pulse Oximetry (%) 97 03/03/17 22:00 Constitutional: Yes: No Distress, Calm Cardiovascular: Yes: Regular Rate and Rhythm Respiratory: Yes: Regular, CTA Bilaterally Gastrointestinal: Yes: Normal Bowel Sounds, Soft Musculoskeletal: Yes: Other Extremities: Yes: Other Integumentary: Yes: Erythema Wound/Incision: Yes: Dressing Dry and Intact, Other Neurological: Yes: Alert, Oriented Psychiatric: Yes: Alert, Oriented Labs: CBC, BMP 03/03/17 06:47 03/03/17 06:47 INR, PTT INR 1.15 (0.82-1.09) H 02/27/17 17:23 Assessment/Plan wound infection dm pvd leukocytosis plan for or today patient to continue abx we mai ee how patient does patient is going to be closely watched as his leg is at risk
[2017-03-04] MEDS ORDERED: PROPOFOL 20 ML ONE (10:33)
[2017-03-04] MEDS: CEFTRIAXONE 100 ML IVPB SCH (11:30)
[2017-03-04] MEDS ORDERED: ONDANSETRON 4 MG/2 ML VIAL IVPUSH PRN ×2 (11:52→12:22)
--- NOTE | 2017-03-04 11:57 | PN ---
Progress Note, Physician Chief Complaint: No c/o Left Foot pain, remained afebrile. Underwent Transtartal amputation - Current Medication List Current Medications: Active Medications Amlodipine Besylate (Norvasc -) 10 mg PO DAILY [facility] Last Admin: 03/04/17 09:55 Dose: Not Given Brimonidine Tartrate (Alphagan P 0.1% -) 1 drop OU DAILY [facility] Last Admin: 03/04/17 09:54 Dose: Not Given Collagenase (Santyl -) 1 applic TP DAILY [facility] Last Admin: 03/04/17 09:55 Dose: Not Given Dorzolamide HCl (Trusopt 2%) 1 drop OU BID [facility] Last Admin: 03/04/17 09:55 Dose: Not Given Gabapentin (Neurontin -) 300 mg PO BID [facility] Last Admin: 03/04/17 09:55 Dose: Not Given Ceftriaxone Sodium (Rocephin 2gm Ivpb (Pre-Docked)) 100 mls @ 200 mls/hr IVPB DAILY [facility] Last Admin: 03/04/17 11:30 Dose: Not Given Insulin Aspart (Novolog Vial Sliding Scale -) 1 vial SQ [facility] PRN Reason: Protocol Last Admin: 03/04/17 11:30 Dose: Not Given Insulin Aspart (Novolog Mix 70/30 Vial) 27 units SQ BIDI [facility] Last Admin: 03/03/17 16:53 Dose: 27 units Latanoprost (Xalatan 0.005% Eye Drops -) 1 drop OU [facility] Last Admin: 03/03/17 22:54 Dose: 1 drop Memantine (Namenda -) 10 mg PO BID [facility] Last Admin: 03/04/17 09:54 Dose: Not Given Metoprolol Succinate (Toprol Xl -) 100 mg PO DAILY [facility] Last Admin: 03/04/17 09:55 Dose: Not Given Mirtazapine (Remeron -) 15 mg PO [facility] Last Admin: 03/03/17 22:52 Dose: 15 mg Aricept 23mg-Pt's Own Medication- Non- Formulary Med 1 each PO DAILY@0900 [facility] Last Admin: 03/04/17 09:54 Dose: Not Given Quetiapine Fumarate (Seroquel -) 50 mg PO [facility] Last Admin: 03/03/17 22:51 Dose: 50 mg Tamsulosin HCl (Flomax -) 0.4 mg PO DAILY@0830 [facility] Last Admin: 03/04/17 08:30 Dose: Not Given Timolol Maleate (Timoptic 0.5%) 1 drop OU BID [facility] Last Admin: 03/04/17 09:55 Dose: Not Given Valsartan (Diovan -) 160 mg PO BID [facility] Last Admin: 03/04/17 09:54 Dose: Not Given - Objective Vital Signs: Vital Signs Temperature 98.1 F 03/04/17 08:25 Pulse Rate 62 03/04/17 08:25 Respiratory Rate 18 03/04/17 08:25 Blood Pressure 150/82 03/04/17 08:25 O2 Sat by Pulse Oximetry (%) 97 03/03/17 22:00 Constitutional: Yes: Well Nourished, No Distress Eyes: Yes: WNL, Conjunctiva Clear HENT: Yes: WNL, Atraumatic, Normocephalic Neck: Yes: WNL, Supple, Trachea Midline Respiratory: Yes: WNL, Regular, CTA Bilaterally Gastrointestinal: Yes: WNL, Normal Bowel Sounds Extremities: Yes: WNL, Amputation (Left Transtarsal) Edema: LLE: Trace Peripheral Pulses: Left Doralis Pedis: 1+, Right Dorsalis Pedis: 1+ Wound/Incision: Yes: Other (in the dressing) Neurological: Yes: WNL, Alert, Oriented ...Motor Strength: WNL, LUE, RUE, RLE Labs: CBC, BMP 03/03/17 06:47 03/03/17 06:47 INR, PTT INR 1.15 (0.82-1.09) H 02/27/17 17:23 Problem List - Problems (1) T2DM (type 2 diabetes mellitus) Assessment/Plan: On Insulin at present Fs are well controlled cont same Code(s): E11.9 - TYPE 2 DIABETES MELLITUS WITHOUT COMPLICATIONS Qualifiers: Diabetes mellitus complication status: with circulatory complication Diabetes mellitus complication detail: with peripheral angiopathy with gangrene (2) HTN (hypertension) Assessment/Plan: Well controlled cont current home meds Code(s): I10 - ESSENTIAL (PRIMARY) HYPERTENSION Qualifiers: Hypertension type: essential hypertension Qualified Code(s): I10 - Essential (primary) hypertension (3) Gangrene of toe Assessment/Plan: S/P amputation cont wound care IV abx, wound grew Poly-microbial growth sensitivity is pending. Patient underwent transtarsal amputation in am. Code(s): I96 - GANGRENE, NOT ELSEWHERE CLASSIFIED (4) Cellulitis in diabetic foot Assessment/Plan: Wound , culture grew Poly microbial ggroth E Colli, Proteus sensitive to Ceftriaxone and Levo , no Pseudomonas will consider switching to Levo or Ceftriaxone after discussing with ID consult. (5) PVD (peripheral vascular disease) Assessment/Plan: Left LE gangrene s/p amputation, schedule for transtarsal amputation in am. Code(s): I73.9 - PERIPHERAL VASCULAR DISEASE, UNSPECIFIED
--- NOTE | 2017-03-04 12:01 | OP ---
Operative Note - Note: Operative Date: 03/04/17 Pre-Operative Diagnosis: Left foot gangrene Operation: Left TMA Post-Operative Diagnosis: Same as Pre-op Surgeon: Jey Hernandez Tank Builder Supervisor: Oleg Quick Anesthesia: Fractional Estimated Blood Loss (mls): 200 Operative Report Dictated: Yes
[2017-03-04] MEDS: INSULIN (NOVOLOG MIX 70/30) 100 UNITS/ML MDV SQ SCH (17:12)
[2017-03-04] MEDS ORDERED: INSULIN (NOVOLOG) ASPART 100 UNITS/ML 10ML VIAL ONE (17:40)
[2017-03-04] MEDS: PIPERACILLIN/TAZOB 3.375 GM/50 ML PRE-DOCKED IVPB SCH (21:38)
[2017-03-04] MEDS: QUEtiapine FUMARATE 50 MG TABLET PO SCH (21:38)
[2017-03-04] MEDS: ACETAMINOPHEN 325 MG TABLET (FP) PO PRN (21:38)
[2017-03-04] MEDS: LATANOPROST 0.005% OPHTH SOLN 2.5ML BOTTLE OU SCH (21:39)
[2017-03-04] MEDS: MIRTAZAPINE 15 MG TABLET (FP) PO SCH (21:39)
[2017-03-04] MEDS ORDERED: CLINDAMYCIN 600MG PREMIX IVPB 50 ML IVPB ONE (23:45)
[2017-03-05] MEDS: PIPERACILLIN/TAZOB 3.375 GM/50 ML PRE-DOCKED IVPB SCH ×3 (01:33→21:34)
[2017-03-05] MEDS: INSULIN (NOVOLOG MIX 70/30) 100 UNITS/ML MDV SQ SCH ×2 (06:23→17:27)
[2017-03-05] MEDS: INSULIN SLIDING SCALE (NOVOLOG) 1 VIAL SQ SCH ×4 (06:23→21:34)
[2017-03-05 08:03] LABS: BASOPHIL 0.4 % (0-2.0); EOSINOPHIL 1.5 % (0-4.5); MCH 24.2 pg (25.7-33.7); MCHC 32.7 g/dl (32.0-35.9); MEAN CELL VOLUME 74.1 fl (80-96); MEAN PLT VOLUME 7.6 fl (7.5-11.1); NEUTROPHILS 66.5 % (42.8-82.8); PLATELET COUNT 259 K/MM3 (134-434); RDW 17.2 % (11.9-15.9); WHITE BLOOD COUNT 11.5 K/mm3 (4.0-10.0)
[2017-03-05 09:05] LABS: ALBUMIN 2.4 g/dl (3.4-5.0); ALK PHOS 84 U/L (45-117); ANION GAP 10 (8-16); BILIRUBIN,TOTAL 0.3 mg/dL (0.2-1.0); CO2 24 mmol/L (21-32); COCKROFT - GAULT 58.21; CREATININE 1.1 mg/dL (0.7-1.3); GLUCOSE,RANDOM 224 mg/dL (74-106); SGOT/AST 23 U/L (15-37); SGPT/ALT 38 U/L (12-78); TOT PROT 5.9 g/dl (6.4-8.2)
[2017-03-05] MEDS ORDERED: PT OWN MED DRAWER 7, Y5N ONE (09:28)
[2017-03-05] MEDS: TAMSULOSIN HCL 0.4 MG CAP.ER.24H (FP) PO SCH (09:30)
[2017-03-05] MEDS: VALSARTAN 160 MG TABLET (UD) PO SCH ×2 (09:42→21:34)
[2017-03-05] MEDS: MEMANTINE HCL 10 MG TABLET (FP) PO SCH ×2 (09:42→21:34)
[2017-03-05] MEDS: amLODIPine BESYLATE 10 MG TABLET (FP) PO SCH (09:42)
[2017-03-05] MEDS: GABAPENTIN 300 MG CAPSULE (FP) PO SCH ×2 (09:43→21:34)
[2017-03-05] MEDS: METOPROLOL SUCCINATE 100 MG TAB.SR.24H (FP) PO SCH (09:43)
--- NOTE | 2017-03-05 09:43 | OP ---
DATE OF OPERATION: 03/04/2017 PREOPERATIVE DIAGNOSIS: Left foot gangrene. POSTOPERATIVE DIAGNOSIS: Left foot gangrene. PROCEDURE: Left transmetatarsal amputation. SURGEON: Jey Moscoso DO HAND SURGEON: Oleg Quick DPM ANESTHESIA: Fractional. TOTAL BLOOD LOSS: 200 mL. The patient is an 81-year-old male who came in with gangrene of his 2nd and 3rd toes. Two weeks ago, he had angioplasty of his tibial arteries performed and then had toe amputation. After the toe amputation, the site did not heal properly and needed to go back for debridement. At that time, he lost his 2nd, 3rd and 4th toes. Now, to give him good, proper closure and long-term balance and function, he would need a TMA. The patient was consented for the procedure, understanding all risks, benefits and alternatives, and was then taken to the operating room. Once in the operating theater, he was laid on the operating room table in a supine manner and the area of the left foot was scrubbed, prepped and draped in a sterile surgical manner. Using lidocaine 1%, we then performed an ankle nerve block on the patient. The foot was then prepped and draped in a sterile surgical manner. We then went ahead and took a marking pen and jonh a step-off incision for the TMA with drawing the flap at the plantar aspect. We then went ahead and used a number-15 blade and jonh along our incision and cut on the forefoot and along the bottom of the foot for the flap. Bovie electrocautery was used to control hemostasis. Using Bovie electrocautery, we were able to take down the 1st toe and the metatarsal head was removed. In the same manner, the 2nd, 3rd and 4th rays were taken back using a reticulated saw. The 1st metatarsal head was also taken out using a reticulating saw. We then removed the 5th toe and the metatarsal head was removed using a reticulating saw. Once that was performed, the 1st and 5th toes were removed and we were left with a nice flap. The flap was then debrided using Metzenbaum scissors. All tendons were removed as far as possible. Bovie electrocautery was then used to control hemostasis. We then washed the wound copiously. We then were able to take 2-0 Vicryl and the fascia was approximated in an interrupted manner, 3-0 Vicryl was used in a 2nd layer was used to close the subcutaneous tissue, and the skin was closed with skin miguel ángel. dried. Xeroform, 4 x 4's, ABD pads, Kerlix was placed. The patient tolerated the procedure. There were no complications. The patient was transferred to the PACU in stable condition. JEY MOSCOSO DO NP/[id number]
[2017-03-05] MEDS: CEFTRIAXONE 100 ML IVPB SCH (09:45)
[2017-03-05] MEDS: NON-FORMULARY MED PO SCH (09:46)
[2017-03-05] MEDS: DORZOLAMIDE 2% HCL OPHTHALMIC SOLUTION 10 ML BOTTLE OU SCH ×2 (09:48→21:42)
[2017-03-05] MEDS: BRIMONIDINE TARTRATE 0.1% OPHTHALMIC 5 ML BOTTLE OU SCH (09:48)
[2017-03-05] MEDS: TIMOLOL 0.5% OPHTHALMIC SOL 5 ML BOTTLE OU SCH ×2 (09:49→21:41)
--- NOTE | 2017-03-05 09:50 | PN ---
Progress Note (short form) - Note Progress Note: Surgery- Dr. Hernandez Patient seen and examined. Patient states he is not having much pain in his foot. States he is feeling ok, but did have fever overnight. Denies N/V, chills. Last Vital Signs Temp Pulse Resp BP Pulse Ox 99.8 F H 78 18 145/58 99 03/05/17 06:00 03/05/17 06:00 03/05/17 06:00 03/05/17 06:00 03/04/17 22:00 CBC, BMP 03/05/17 06:00 03/05/17 06:00 Exam: Gen: NAD, pleasant and cooperative, at bedside LLE: s/p TMA, dressing clean, dry, intact Problem List - Problems (1) Gangrene of toe Assessment/Plan: POD#1 s/p Left TMA for Left foot gangrene Dressing c/d/i Monitor temps, Abx per ID Pain control Code(s): I96 - GANGRENE, NOT ELSEWHERE CLASSIFIED
[2017-03-05] MEDS: ACETAMINOPHEN 325 MG TABLET (FP) PO PRN ×2 (09:57→20:17)
--- NOTE | 2017-03-05 12:10 | PN ---
Progress Note, Physician Chief Complaint: Post OP day 1St spiked 102 F, no c/o pain.. History of Present Illness: 81 year old male past medical history of diabetes, hypertension, hyperpiesia, Alzheimers, BPH, and depression/anxiety admitted with Left foot post operative infection S/P amputations left 2nd-4th toes due to gangrene 1 monnth ago, evaluated by vascular surgery and Id underwent debrinement under GA and subsequently TTA Left foot Post Op day 1 Patient denies any chills, chest pain , shortness of breath, diaphoresis, palpitations. T - Current Medication List Current Medications: Active Medications Acetaminophen (Tylenol -) 650 mg PO Q6H PRN PRN Reason: FEVER OR PAIN Last Admin: 03/05/17 09:57 Dose: 650 mg Amlodipine Besylate (Norvasc -) 10 mg PO DAILY [facility] Last Admin: 03/05/17 09:42 Dose: 10 mg Brimonidine Tartrate (Alphagan P 0.1% -) 1 drop OU DAILY [facility] Last Admin: 03/05/17 09:48 Dose: 1 drop Collagenase (Santyl -) 1 applic TP DAILY [facility] Dorzolamide HCl (Trusopt 2%) 1 drop OU BID [facility] Last Admin: 03/05/17 09:48 Dose: 1 drop Gabapentin (Neurontin -) 300 mg PO BID [facility] Last Admin: 03/05/17 09:43 Dose: 300 mg Ceftriaxone Sodium (Rocephin 2gm Ivpb (Pre-Docked)) 100 mls @ 200 mls/hr IVPB DAILY [facility] Last Admin: 03/05/17 09:45 Dose: 200 mls/hr Insulin Aspart (Novolog Vial Sliding Scale -) 1 vial SQ ACHS [facility] PRN Reason: Protocol Last Admin: 03/05/17 06:23 Dose: 2 units Insulin Aspart (Novolog Mix 70/30 Vial) 27 units SQ BIDI [facility] Last Admin: 03/05/17 06:23 Dose: 27 units Latanoprost (Xalatan 0.005% Eye Drops -) 1 drop OU HS [facility] Last Admin: 03/04/17 21:39 Dose: 1 drop Memantine (Namenda -) 10 mg PO BID [facility] Last Admin: 03/05/17 09:42 Dose: 10 mg Metoprolol Succinate (Toprol Xl -) 100 mg PO DAILY [facility] Last Admin: 03/05/17 09:43 Dose: 100 mg Mirtazapine (Remeron -) 15 mg PO [facility] Last Admin: 03/04/17 21:39 Dose: 15 mg Non-Formulary Medication (Non-Formulary Med) 1 each PO DAILY@0900 [facility] Last Admin: 03/05/17 09:46 Dose: 1 each Piperacillin Sod/Tazobactam Sod (Zosyn 3.375gm Ivpb (Pre-Docked)) 3.375 gm IVPB Q8H-IV [facility] Last Admin: 03/05/17 09:45 Dose: 3.375 gm Quetiapine Fumarate (Seroquel -) 50 mg PO [facility] Last Admin: 03/04/17 21:38 Dose: 50 mg Tamsulosin HCl (Flomax -) 0.4 mg PO DAILY@0830 [facility] Last Admin: 03/05/17 09:30 Dose: 0.4 mg Timolol Maleate (Timoptic 0.5%) 1 drop OU BID [facility] Last Admin: 03/05/17 09:49 Dose: 1 drop Valsartan (Diovan -) 160 mg PO BID [facility] Last Admin: 03/05/17 09:42 Dose: 160 mg - Objective Vital Signs: Vital Signs Temperature 98.7 F 03/05/17 12:00 Pulse Rate 71 03/05/17 10:00 Respiratory Rate 18 03/05/17 10:00 Blood Pressure 156/65 03/05/17 10:00 O2 Sat by Pulse Oximetry (%) 99 03/05/17 09:00 Constitutional: Yes: Well Nourished, No Distress, Calm Eyes: Yes: WNL, Conjunctiva Clear, EOM Intact HENT: Yes: Atraumatic, Normocephalic Neck: Yes: WNL, Supple, Trachea Midline Cardiovascular: Yes: WNL, Regular Rate and Rhythm Respiratory: Yes: WNL, Regular, CTA Bilaterally Gastrointestinal: Yes: WNL, Normal Bowel Sounds, Soft Genitourinary: Yes: WNL. No: Anuria, Bladder Distention Extremities: Yes: WNL, Amputation Edema: (TTA Left LE) Peripheral Pulses: Left Doralis Pedis: 1+, Right Dorsalis Pedis: 1+ Wound/Incision: Yes: Other (In dressing) Psychiatric: Yes: WNL, Alert, Oriented Labs: CBC, BMP 03/05/17 06:00 03/05/17 06:00 INR, PTT INR 1.15 (0.82-1.09) H 02/27/17 17:23 Problem List - Problems (1) T2DM (type 2 diabetes mellitus) Assessment/Plan: On Insulin at present Fs are well controlled cont Current regimen. Code(s): E11.9 - TYPE 2 DIABETES MELLITUS WITHOUT COMPLICATIONS Qualifiers: Diabetes mellitus complication status: with circulatory complication Diabetes mellitus complication detail: with peripheral angiopathy with gangrene (2) HTN (hypertension) Assessment/Plan: Well controlled cont current home meds Code(s): I10 - ESSENTIAL (PRIMARY) HYPERTENSION Qualifiers: Hypertension type: essential hypertension Qualified Code(s): I10 - Essential (primary) hypertension (3) Gangrene of toe Assessment/Plan: S/P amputation cont wound care IV abx, wound grew Poly-microbial growth sensitivity is pending. S/P Left TTA Post OP day 1. Code(s): I96 - GANGRENE, NOT ELSEWHERE CLASSIFIED (4) Cellulitis in diabetic foot Assessment/Plan: Spiked Post Operatively , cont IV abx and wound care, F/U wound care. (5) PVD (peripheral vascular disease) Assessment/Plan: Left LE gangrene s/p amputation, . Code(s): I73.9 - PERIPHERAL VASCULAR DISEASE, UNSPECIFIED
[2017-03-05] MEDS: COLLAGENASE CLOSTRIDIUM HIST. 30 GRAMS TUBE TP SCH (16:44)
[2017-03-05] MEDS ORDERED: PIPERACILLIN/TAZOB 3.375 GM/50 ML PRE-DOCKED IVPB SCH (18:00)
--- NOTE | 2017-03-05 20:12 | PN ---
Progress Note (short form) - Note Progress Note: Vascular Surgery Pt seen and examined. Had fever today. Took down dressing today Foot looks good. Incision is clean/dry/intact. Cont present care. Jey Hernandez DO
[2017-03-05] MEDS: QUEtiapine FUMARATE 50 MG TABLET PO SCH (21:35)
[2017-03-05] MEDS: MIRTAZAPINE 15 MG TABLET (FP) PO SCH (21:35)
[2017-03-05] MEDS: LATANOPROST 0.005% OPHTH SOLN 2.5ML BOTTLE OU SCH (21:42)
[2017-03-06] MEDS: PIPERACILLIN/TAZOB 3.375 GM/50 ML PRE-DOCKED IVPB SCH ×3 (01:55→17:32)
[2017-03-06] MEDS: INSULIN (NOVOLOG MIX 70/30) 100 UNITS/ML MDV SQ SCH ×2 (06:44→17:28)
[2017-03-06] MEDS: INSULIN SLIDING SCALE (NOVOLOG) 1 VIAL SQ SCH ×4 (06:44→22:08)
[2017-03-06] MEDS ORDERED: INSULIN (NOVOLOG) ASPART 100 UNITS/ML 10ML VIAL ONE (07:00)
[2017-03-06 08:33] LABS: BASOPHIL 0.5 % (0-2.0); EOSINOPHIL 2.6 % (0-4.5); MCH 24.1 pg (25.7-33.7); MEAN CELL VOLUME 75.2 fl (80-96); MEAN PLT VOLUME 7.6 fl (7.5-11.1); NEUTROPHILS 72.8 % (42.8-82.8); PLATELET COUNT 257 K/MM3 (134-434); RDW 17.8 % (11.9-15.9); WHITE BLOOD COUNT 12.3 K/mm3 (4.0-10.0)
[2017-03-06 08:57] LABS: ALBUMIN 2.3 g/dl (3.4-5.0); ANION GAP 11 (8-16); CALCIUM 8.3 mg/dL (8.5-10.1); CO2 24 mmol/L (21-32); COCKROFT - GAULT 58.21; CREATININE 1.1 mg/dL (0.7-1.3); GLUCOSE,RANDOM 248 mg/dL (74-106); SGOT/AST 18 U/L (15-37); SGPT/ALT 34 U/L (12-78)
[2017-03-06 08:58] LABS: ALK PHOS 77 U/L (45-117); BILIRUBIN,TOTAL 0.4 mg/dL (0.2-1.0)
[2017-03-06] MEDS: TAMSULOSIN HCL 0.4 MG CAP.ER.24H (FP) PO SCH (09:25)
[2017-03-06] MEDS: NON-FORMULARY MED PO SCH (09:50)
[2017-03-06] MEDS: amLODIPine BESYLATE 10 MG TABLET (FP) PO SCH (10:09)
[2017-03-06] MEDS: GABAPENTIN 300 MG CAPSULE (FP) PO SCH ×2 (10:09→22:06)
[2017-03-06] MEDS: VALSARTAN 160 MG TABLET (UD) PO SCH ×2 (10:09→22:06)
[2017-03-06] MEDS: METOPROLOL SUCCINATE 100 MG TAB.SR.24H (FP) PO SCH (10:10)
[2017-03-06] MEDS: MEMANTINE HCL 10 MG TABLET (FP) PO SCH ×2 (10:10→22:08)
[2017-03-06] MEDS: CEFTRIAXONE 100 ML IVPB SCH (10:11)
[2017-03-06] MEDS: TIMOLOL 0.5% OPHTHALMIC SOL 5 ML BOTTLE OU SCH ×2 (10:13→22:09)
[2017-03-06] MEDS: BRIMONIDINE TARTRATE 0.1% OPHTHALMIC 5 ML BOTTLE OU SCH (10:13)
[2017-03-06] MEDS: COLLAGENASE CLOSTRIDIUM HIST. 30 GRAMS TUBE TP SCH (10:14)
[2017-03-06] MEDS: DORZOLAMIDE 2% HCL OPHTHALMIC SOLUTION 10 ML BOTTLE OU SCH ×2 (10:14→22:10)
--- NOTE | 2017-03-06 12:51 | PN ---
Progress Note, Physician Chief Complaint: Post OP day 2 spiked 100.5F, no c/o pain..No Cough Diarrhea abd pain History of Present Illness: 81 year old male past medical history of diabetes, hypertension, hyperpiesia, Alzheimers, BPH, and depression/anxiety admitted with Left foot post operative infection S/P amputations left 2nd-4th toes due to gangrene 1 month ago, evaluated by vascular surgery and Id underwent debrinement under GA and subsequently TTA Left foot Post Op day 2 Patient denies any chills, spiked fever. - Current Medication List Current Medications: Active Medications Acetaminophen (Tylenol -) 650 mg PO Q6H PRN PRN Reason: FEVER OR PAIN Last Admin: 03/05/17 20:17 Dose: 650 mg Amlodipine Besylate (Norvasc -) 10 mg PO DAILY [facility] Last Admin: 03/06/17 10:09 Dose: 10 mg Brimonidine Tartrate (Alphagan P 0.1% -) 1 drop OU DAILY [facility] Last Admin: 03/06/17 10:13 Dose: 1 drop Collagenase (Santyl -) 1 applic TP DAILY [facility] Last Admin: 03/06/17 10:14 Dose: Not Given Dorzolamide HCl (Trusopt 2%) 1 drop OU BID [facility] Last Admin: 03/06/17 10:14 Dose: 1 drop Gabapentin (Neurontin -) 300 mg PO BID [facility] Last Admin: 03/06/17 10:09 Dose: 300 mg Ceftriaxone Sodium (Rocephin 2gm Ivpb (Pre-Docked)) 100 mls @ 200 mls/hr IVPB DAILY [facility] Last Admin: 03/06/17 10:11 Dose: 200 mls/hr Insulin Aspart (Novolog Vial Sliding Scale -) 1 vial SQ ACHS [facility] PRN Reason: Protocol Last Admin: 03/06/17 12:12 Dose: 4 units Insulin Aspart (Novolog Mix 70/30 Vial) 27 units SQ BIDI [facility] Last Admin: 03/06/17 06:44 Dose: 27 units Latanoprost (Xalatan 0.005% Eye Drops -) 1 drop OU HS [facility] Last Admin: 03/05/17 21:42 Dose: 1 drop Memantine (Namenda -) 10 mg PO BID [facility] Last Admin: 03/06/17 10:10 Dose: 10 mg Metoprolol Succinate (Toprol Xl -) 100 mg PO DAILY [facility] Last Admin: 03/06/17 10:10 Dose: 100 mg Mirtazapine (Remeron -) 15 mg PO HS [facility] Last Admin: 03/05/17 21:35 Dose: 15 mg Non-Formulary Medication (Non-Formulary Med) 1 each PO DAILY@0900 [facility] Last Admin: 03/06/17 09:50 Dose: 1 each Piperacillin Sod/Tazobactam Sod (Zosyn 3.375gm Ivpb (Pre-Docked)) 3.375 gm IVPB Q8H-IV [facility] Last Admin: 03/06/17 10:11 Dose: 3.375 gm Quetiapine Fumarate (Seroquel -) 50 mg PO HS [facility] Last Admin: 03/05/17 21:35 Dose: 50 mg Tamsulosin HCl (Flomax -) 0.4 mg PO DAILY@0830 [facility] Last Admin: 03/06/17 09:25 Dose: 0.4 mg Timolol Maleate (Timoptic 0.5%) 1 drop OU BID [facility] Last Admin: 03/06/17 10:13 Dose: 1 drop Valsartan (Diovan -) 160 mg PO BID [facility] Last Admin: 03/06/17 10:09 Dose: 160 mg - Objective Vital Signs: Vital Signs Temperature 98.5 F 03/06/17 06:00 Pulse Rate 60 03/06/17 06:00 Respiratory Rate 18 03/06/17 06:00 Blood Pressure 147/63 03/06/17 06:00 O2 Sat by Pulse Oximetry (%) 95 03/05/17 21:00 Constitutional: Yes: Well Nourished, No Distress, Calm Eyes: Yes: WNL, Conjunctiva Clear, EOM Intact HENT: Yes: WNL, Atraumatic, Normocephalic Neck: Yes: WNL, Trachea Midline Cardiovascular: Yes: WNL, Regular Rate and Rhythm, S1. No: Murmur Respiratory: Yes: WNL, Regular, CTA Bilaterally Gastrointestinal: Yes: WNL, Normal Bowel Sounds, Soft Genitourinary: Yes: WNL. No: Anuria, Bladder Distention, CVA Tenderness - Left Extremities: Yes: Amputation Edema: (Left TTA in dressing) Edema: RUE: Trace, LLE: 1+ Peripheral Pulses: Left Doralis Pedis: 1+, Right Dorsalis Pedis: 1+ Wound/Incision: Yes: Sutures Intact Neurological: Yes: WNL, Alert, Oriented ...Motor Strength: WNL, LUE, LLE, RUE, RLE Labs: CBC, BMP 03/06/17 08:00 03/06/17 08:00 INR, PTT INR 1.15 (0.82-1.09) H 02/27/17 17:23 Problem List - Problems (1) T2DM (type 2 diabetes mellitus) Assessment/Plan: On Insulin at present Fs are hig increase 75/25 4=30 unit BID Code(s): E11.9 - TYPE 2 DIABETES MELLITUS WITHOUT COMPLICATIONS Qualifiers: Diabetes mellitus complication status: with circulatory complication Diabetes mellitus complication detail: with peripheral angiopathy with gangrene (2) HTN (hypertension) Assessment/Plan: Well controlled cont current home meds Code(s): I10 - ESSENTIAL (PRIMARY) HYPERTENSION Qualifiers: Hypertension type: essential hypertension Qualified Code(s): I10 - Essential (primary) hypertension (3) Gangrene of toe Assessment/Plan: S/P amputation cont wound care IV abx, wound grew Poly-microbial growth sensitivity is pending. S/P Left TTA Post OP day 2. Code(s): I96 - GANGRENE, NOT ELSEWHERE CLASSIFIED (4) Cellulitis in diabetic foot Assessment/Plan: Spiked Post Operatively , cont IV abx and wound care, F/U wound care. (5) PVD (peripheral vascular disease) Assessment/Plan: Left LE gangrene s/p amputation, . Code(s): I73.9 - PERIPHERAL VASCULAR DISEASE, UNSPECIFIED (6) Fever Assessment/Plan: Post Op fever TWBC impoving Blood cultures are -ve, F/U CXR and UA Code(s): R50.9 - FEVER, UNSPECIFIED Qualifiers: Fever type: post-procedural Qualified Code(s): R50.82 - Postprocedural fever
--- NOTE | 2017-03-06 14:53 | PATH ---
Surgical Pathology Report Patient Name: ADELA URIAS [facility]. Rec. #: [id number] /Age/Gender: 1935 (Age: 81) / M Account: [id number] Location: [address] [place] [address]/[facility] Taken: 03/04/2017 Received: 03/04/2017 Reported: 03/06/2017 Physicians: Jey Presley M.D. Specimen(s) Received TRANSMETATARSAL LEFT FOOT Clinical History Left foot gangrene Final Diagnosis LEFT FOOT, TRANSMETATARSAL AMPUTATION: ULCERATED AND NECROTIC SKIN AND UNDERLYING SOFT TISSUE WITH GANGRENOUS NECROSIS. NECROTIZING INFLAMMATION AND NECROSIS EXTEND TO THE SKIN AND SOFT TISSUE RESECTION MARGIN. FRAGMENTS OF BONE WITH CHRONIC OSTEOMYELITIS. ADDITIONAL FRAGMENTS OF BONE APPEAR VIABLE. SEPARATE FRAGMENTS OF SOFT TISSUE WITH ISCHEMIC CHANGES. Electronically Signed Luis Daniel Moon M.D. Gross Description Received in formalin labeled "transmetatarsal left foot (amputated)" is a 10.0 x 6.7 x 3.5 cm portion of a transmetatarsal amputation including a hallux and a fifth digit. The second, third and fourth toes appear to have been previously amputated and there is a defect in the specimen at the previous amputation site. The epidermal surface is ulcerated and ulcerated skin appears to involve the margin. Also received within the same container is a 10.5 x 9.0 x 1.2 cm aggregate of abundant bone and soft tissue fragments. Fabrication Lead sections are submitted in 6 cassettes as follows: 1-ulcerated skin from previous amputation site; 2-skin and soft tissue margin; 3-bone from fifth digit, following decalcification; 4-1-nunvldobln received bone fragments, following decalcification; 6-separately received soft tissue fragments. /03/05/201703/05/2017
[2017-03-06] MEDS: ACETAMINOPHEN 325 MG TABLET (FP) PO PRN (15:16)
--- NOTE | 2017-03-06 17:28 | PN ---
Progress Note, Physician History of Present Illness: patient post OR more debridement and left tma done\ says he feels well - Current Medication List Current Medications: Active Medications Acetaminophen (Tylenol -) 650 mg PO Q6H PRN PRN Reason: FEVER OR PAIN Last Admin: 03/06/17 15:16 Dose: 650 mg Amlodipine Besylate (Norvasc -) 10 mg PO DAILY [facility] Last Admin: 03/06/17 10:09 Dose: 10 mg Brimonidine Tartrate (Alphagan P 0.1% -) 1 drop OU DAILY [facility] Last Admin: 03/06/17 10:13 Dose: 1 drop Collagenase (Santyl -) 1 applic TP DAILY [facility] Last Admin: 03/06/17 10:14 Dose: Not Given Dorzolamide HCl (Trusopt 2%) 1 drop OU BID [facility] Last Admin: 03/06/17 10:14 Dose: 1 drop Gabapentin (Neurontin -) 300 mg PO BID [facility] Last Admin: 03/06/17 10:09 Dose: 300 mg Insulin Aspart (Novolog Vial Sliding Scale -) 1 vial SQ ACHS [facility] PRN Reason: Protocol Last Admin: 03/06/17 12:12 Dose: 4 units Insulin Aspart (Novolog Mix 70/30 Vial) 30 units SQ BIDI [facility] Latanoprost (Xalatan 0.005% Eye Drops -) 1 drop OU HS [facility] Last Admin: 03/05/17 21:42 Dose: 1 drop Memantine (Namenda -) 10 mg PO BID [facility] Last Admin: 03/06/17 10:10 Dose: 10 mg Metoprolol Succinate (Toprol Xl -) 100 mg PO DAILY [facility] Last Admin: 03/06/17 10:10 Dose: 100 mg Mirtazapine (Remeron -) 15 mg PO HS [facility] Last Admin: 03/05/17 21:35 Dose: 15 mg Non-Formulary Medication (Non-Formulary Med) 1 each PO DAILY@0900 [facility] Last Admin: 03/06/17 09:50 Dose: 1 each Piperacillin Sod/Tazobactam Sod (Zosyn 3.375gm Ivpb (Pre-Docked)) 3.375 gm IVPB Q8H-IV [facility] Last Admin: 03/06/17 10:11 Dose: 3.375 gm Quetiapine Fumarate (Seroquel -) 50 mg PO HS [facility] Last Admin: 03/05/17 21:35 Dose: 50 mg Tamsulosin HCl (Flomax -) 0.4 mg PO DAILY@0830 [facility] Last Admin: 03/06/17 09:25 Dose: 0.4 mg Timolol Maleate (Timoptic 0.5%) 1 drop OU BID [facility] Last Admin: 03/06/17 10:13 Dose: 1 drop Valsartan (Diovan -) 160 mg PO BID [facility] Last Admin: 03/06/17 10:09 Dose: 160 mg - Objective Vital Signs: Vital Signs Temperature 100.3 F H 03/06/17 14:46 Pulse Rate 69 03/06/17 14:46 Respiratory Rate 18 03/06/17 14:46 Blood Pressure 146/62 03/06/17 14:46 O2 Sat by Pulse Oximetry (%) 95 03/05/17 21:00 Constitutional: Yes: No Distress, Calm Cardiovascular: Yes: Regular Rate and Rhythm Respiratory: Yes: Regular, CTA Bilaterally Gastrointestinal: Yes: Normal Bowel Sounds, Soft Musculoskeletal: Yes: Other Extremities: Yes: Other Wound/Incision: Yes: Dressing Dry and Intact Neurological: Yes: Alert, Oriented Psychiatric: Yes: Alert Labs: CBC, BMP 03/06/17 08:00 03/06/17 08:00 INR, PTT INR 1.15 (0.82-1.09) H 02/27/17 17:23 Assessment/Plan wound infection dm pvd leukocytosis plan continue current abx patient doing well will continue to closely monitor rest as per primary
--- NOTE | 2017-03-06 17:34 | PN ---
Progress Note, Physician History of Present Illness: patient was having high grade fever last night d/w the nursing staf patient started on zosyn vascular reevalauted the wound - Current Medication List Current Medications: Active Medications Acetaminophen (Tylenol -) 650 mg PO Q6H PRN PRN Reason: FEVER OR PAIN Last Admin: 03/06/17 15:16 Dose: 650 mg Amlodipine Besylate (Norvasc -) 10 mg PO DAILY [facility] Last Admin: 03/06/17 10:09 Dose: 10 mg Brimonidine Tartrate (Alphagan P 0.1% -) 1 drop OU DAILY [facility] Last Admin: 03/06/17 10:13 Dose: 1 drop Collagenase (Santyl -) 1 applic TP DAILY [facility] Last Admin: 03/06/17 10:14 Dose: Not Given Dorzolamide HCl (Trusopt 2%) 1 drop OU BID [facility] Last Admin: 03/06/17 10:14 Dose: 1 drop Gabapentin (Neurontin -) 300 mg PO BID [facility] Last Admin: 03/06/17 10:09 Dose: 300 mg Insulin Aspart (Novolog Vial Sliding Scale -) 1 vial SQ ACHS [facility] PRN Reason: Protocol Last Admin: 03/06/17 12:12 Dose: 4 units Insulin Aspart (Novolog Mix 70/30 Vial) 30 units SQ BIDI [facility] Latanoprost (Xalatan 0.005% Eye Drops -) 1 drop OU HS [facility] Last Admin: 03/05/17 21:42 Dose: 1 drop Memantine (Namenda -) 10 mg PO BID [facility] Last Admin: 03/06/17 10:10 Dose: 10 mg Metoprolol Succinate (Toprol Xl -) 100 mg PO DAILY [facility] Last Admin: 03/06/17 10:10 Dose: 100 mg Mirtazapine (Remeron -) 15 mg PO HS [facility] Last Admin: 03/05/17 21:35 Dose: 15 mg Non-Formulary Medication (Non-Formulary Med) 1 each PO DAILY@0900 [facility] Last Admin: 03/06/17 09:50 Dose: 1 each Piperacillin Sod/Tazobactam Sod (Zosyn 3.375gm Ivpb (Pre-Docked)) 3.375 gm IVPB Q8H-IV [facility] Last Admin: 03/06/17 10:11 Dose: 3.375 gm Quetiapine Fumarate (Seroquel -) 50 mg PO HS [facility] Last Admin: 03/05/17 21:35 Dose: 50 mg Tamsulosin HCl (Flomax -) 0.4 mg PO DAILY@0830 [facility] Last Admin: 03/06/17 09:25 Dose: 0.4 mg Timolol Maleate (Timoptic 0.5%) 1 drop OU BID [facility] Last Admin: 03/06/17 10:13 Dose: 1 drop Valsartan (Diovan -) 160 mg PO BID [facility] Last Admin: 03/06/17 10:09 Dose: 160 mg - Objective Vital Signs: Vital Signs Temperature 100.3 F H 03/06/17 14:46 Pulse Rate 69 03/06/17 14:46 Respiratory Rate 18 03/06/17 14:46 Blood Pressure 146/62 03/06/17 14:46 O2 Sat by Pulse Oximetry (%) 95 03/05/17 21:00 Constitutional: Yes: No Distress, Calm HENT: Yes: Atraumatic Neck: Yes: Supple Cardiovascular: Yes: Regular Rate and Rhythm Respiratory: Yes: Regular, CTA Bilaterally Gastrointestinal: Yes: Normal Bowel Sounds, Soft Musculoskeletal: Yes: Other Extremities: Yes: Other Wound/Incision: Yes: Dressing Dry and Intact Neurological: Yes: Alert, Oriented Psychiatric: Yes: Alert, Oriented Labs: CBC, BMP 03/06/17 08:00 03/06/17 08:00 INR, PTT INR 1.15 (0.82-1.09) H 02/27/17 17:23 - ....Imaging Chest X-ray: Report Reviewed, Image Reviewed Assessment/Plan wound infection dm pvd leukocytosis i have revisited his cx report from the patient has spike fever through zosyn and ceftiraxone now now though the organism showed sensitivity to patient is having hig fevers inspite of giving both those abx i am going to escalate sera bx plan stop zosyn will start on ertapenam will need for some time monitor fevers very closely rest as per primary team
--- NOTE | 2017-03-06 18:04 | PN ---
Progress Note (short form) - Note Progress Note: Vascular Surgery Pt seen and examined. Dressing changed. Suture line clean , dry , and intact. Cont antibiotics Will follow Jey Hernandez DO
[2017-03-06] MEDS: HEPARIN NA (PORCINE) 5,000 UNITS/ML 1ML VIAL SQ SCH (18:57)
[2017-03-06] MEDS: ERTAPENEM SODIUM 1 GM in SODIUM CHLORIDE 50 ML IVPB SCH (18:57)
[2017-03-06] MEDS: MIRTAZAPINE 15 MG TABLET (FP) PO SCH (22:06)
[2017-03-06] MEDS: QUEtiapine FUMARATE 50 MG TABLET PO SCH (22:08)
[2017-03-06] MEDS: LATANOPROST 0.005% OPHTH SOLN 2.5ML BOTTLE OU SCH (22:10)
[2017-03-07] MEDS: INSULIN (NOVOLOG MIX 70/30) 100 UNITS/ML MDV SQ SCH ×2 (06:32→17:09)
[2017-03-07] MEDS: INSULIN SLIDING SCALE (NOVOLOG) 1 VIAL SQ SCH ×4 (06:32→21:35)
[2017-03-07] MEDS ORDERED: INSULIN (NOVOLOG) ASPART 100 UNITS/ML 10ML VIAL ONE ×3 (06:42→17:08)
[2017-03-07 07:31] LABS: BASOPHIL 0.3 % (0-2.0); EOSINOPHIL 3.8 % (0-4.5); MCH 24.4 pg (25.7-33.7); MCHC 32.8 g/dl (32.0-35.9); MEAN CELL VOLUME 74.5 fl (80-96); MEAN PLT VOLUME 7.6 fl (7.5-11.1); NEUTROPHILS 61.5 % (42.8-82.8); PLATELET COUNT 287 K/MM3 (134-434); WHITE BLOOD COUNT 10.1 K/mm3 (4.0-10.0)
[2017-03-07 08:05] LABS: ALBUMIN 2.3 g/dl (3.4-5.0); ANION GAP 10 (8-16); BILIRUBIN,TOTAL 0.3 mg/dL (0.2-1.0); CALCIUM 8.3 mg/dL (8.5-10.1); CO2 26 mmol/L (21-32); COCKROFT - GAULT 64.03; GLUCOSE,RANDOM 180 mg/dL (74-106); SGOT/AST 24 U/L (15-37); SGPT/ALT 42 U/L (12-78); TOT PROT 6.2 g/dl (6.4-8.2)
[2017-03-07 08:06] LABS: ALK PHOS 77 U/L (45-117)
[2017-03-07] MEDS ORDERED: PT OWN MED DRAWER 7, Y5N ONE ×2 (08:20→09:01)
[2017-03-07] MEDS: TAMSULOSIN HCL 0.4 MG CAP.ER.24H (FP) PO SCH (08:20)
[2017-03-07] MEDS: NON-FORMULARY MED PO SCH (08:20)
[2017-03-07 09:20] LABS: URINE APPEARANCE CLEAR; URINE BILIRUBIN NEGATIVE (NEGATIVE); URINE BLOOD NEGATIVE (NEGATIVE); URINE COLOR LTYELLOW; URINE GLUCOSE (UA) NEGATIVE (NEGATIVE); URINE KETONE NEGATIVE (NEGATIVE); URINE LEUK ESTERASE NEGATIVE (NEGATIVE); URINE NITRITE NEGATIVE (NEGATIVE); URINE PROTEIN NEGATIVE (NEGATIVE); URINE UROBILINOGEN NEGATIVE E.U./dl (0.2-1.0)
[2017-03-07] MEDS: HEPARIN NA (PORCINE) 5,000 UNITS/ML 1ML VIAL SQ SCH ×2 (09:27→21:25)
[2017-03-07] MEDS: GABAPENTIN 300 MG CAPSULE (FP) PO SCH ×2 (09:27→21:24)
[2017-03-07] MEDS: BRIMONIDINE TARTRATE 0.1% OPHTHALMIC 5 ML BOTTLE OU SCH (09:27)
[2017-03-07] MEDS: VALSARTAN 160 MG TABLET (UD) PO SCH ×2 (09:27→21:24)
[2017-03-07] MEDS: amLODIPine BESYLATE 10 MG TABLET (FP) PO SCH (09:28)
[2017-03-07] MEDS: METOPROLOL SUCCINATE 100 MG TAB.SR.24H (FP) PO SCH (09:28)
[2017-03-07] MEDS: MEMANTINE HCL 10 MG TABLET (FP) PO SCH ×2 (09:28→21:24)
[2017-03-07] MEDS: TIMOLOL 0.5% OPHTHALMIC SOL 5 ML BOTTLE OU SCH ×2 (09:29→21:36)
[2017-03-07] MEDS: DORZOLAMIDE 2% HCL OPHTHALMIC SOLUTION 10 ML BOTTLE OU SCH ×2 (09:29→21:36)
[2017-03-07] MEDS: COLLAGENASE CLOSTRIDIUM HIST. 30 GRAMS TUBE TP SCH (09:32)
[2017-03-07] MEDS: ERTAPENEM SODIUM 1 GM in SODIUM CHLORIDE 50 ML IVPB SCH (09:42)
--- NOTE | 2017-03-07 11:27 | PN ---
Progress Note, Physician Chief Complaint: Post OP day 3 , afebrile, feels comfortable, no c/o pain..No Cough Diarrhea abd pain History of Present Illness: 81 year old male past medical history of diabetes, hypertension, hyperpiesia, Alzheimers, BPH, and depression/anxiety admitted with Left foot post operative infection S/P amputations left 2nd-4th toes due to gangrene 1 month ago, evaluated by vascular surgery and Id underwent debrinement under GA and subsequently TTA Left foot Post Op day 3 Patient remained afebrile.r. - Current Medication List Current Medications: Active Medications Acetaminophen (Tylenol -) 650 mg PO Q6H PRN PRN Reason: FEVER OR PAIN Last Admin: 03/06/17 15:16 Dose: 650 mg Amlodipine Besylate (Norvasc -) 10 mg PO DAILY [facility] Last Admin: 03/07/17 09:28 Dose: 10 mg Brimonidine Tartrate (Alphagan P 0.1% -) 1 drop OU DAILY [facility] Last Admin: 03/07/17 09:27 Dose: 1 drop Collagenase (Santyl -) 1 applic TP DAILY [facility] Last Admin: 03/07/17 09:32 Dose: 1 applic Dorzolamide HCl (Trusopt 2%) 1 drop OU BID [facility] Last Admin: 03/07/17 09:29 Dose: 1 drop Gabapentin (Neurontin -) 300 mg PO BID [facility] Last Admin: 03/07/17 09:27 Dose: 300 mg Heparin Sodium (Porcine) (Heparin -) 5,000 unit SQ BID [facility] Last Admin: 03/07/17 09:27 Dose: 5,000 unit Ertapenem 1 gm/ Sodium (Chloride) 50 mls @ 50 mls/hr IVPB DAILY [facility] PRN Reason: Protocol Last Admin: 03/07/17 09:42 Dose: 50 mls/hr Insulin Aspart (Novolog Vial Sliding Scale -) 1 vial SQ ACHS [facility] PRN Reason: Protocol Last Admin: 03/07/17 06:32 Dose: 2 units Insulin Aspart (Novolog Mix 70/30 Vial) 30 units SQ BIDI [facility] Last Admin: 03/07/17 06:32 Dose: 30 units Latanoprost (Xalatan 0.005% Eye Drops -) 1 drop OU HS [facility] Last Admin: 03/06/17 22:10 Dose: 1 drop Memantine (Namenda -) 10 mg PO BID [facility] Last Admin: 03/07/17 09:28 Dose: 10 mg Metoprolol Succinate (Toprol Xl -) 100 mg PO DAILY [facility] Last Admin: 03/07/17 09:28 Dose: 100 mg Mirtazapine (Remeron -) 15 mg PO [facility] Last Admin: 03/06/17 22:06 Dose: 15 mg Non-Formulary Medication (Non-Formulary Med) 1 each PO DAILY@0900 [facility] Last Admin: 03/07/17 08:20 Dose: 1 each Quetiapine Fumarate (Seroquel -) 50 mg PO [facility] Last Admin: 03/06/17 22:08 Dose: 50 mg Tamsulosin HCl (Flomax -) 0.4 mg PO DAILY@0830 [facility] Last Admin: 03/07/17 08:20 Dose: 0.4 mg Timolol Maleate (Timoptic 0.5%) 1 drop OU BID [facility] Last Admin: 03/07/17 09:29 Dose: 1 drop Valsartan (Diovan -) 160 mg PO BID [facility] Last Admin: 03/07/17 09:27 Dose: 160 mg - Objective Vital Signs: Vital Signs Temperature 98.1 F 03/07/17 08:12 Pulse Rate 63 03/07/17 08:12 Respiratory Rate 20 03/07/17 08:12 Blood Pressure 138/57 03/07/17 08:12 O2 Sat by Pulse Oximetry (%) 97 03/07/17 09:00 Constitutional: Yes: Well Nourished, No Distress, Calm Eyes: Yes: WNL, Conjunctiva Clear, EOM Intact HENT: Yes: WNL, Atraumatic, Normocephalic Neck: Yes: WNL, Supple, Trachea Midline Cardiovascular: Yes: WNL, Regular Rate and Rhythm, S1, S2. No: Murmur Respiratory: Yes: WNL, Regular, CTA Bilaterally Gastrointestinal: Yes: WNL, Normal Bowel Sounds, Soft Musculoskeletal: Yes: Other (Left TTA) Extremities: Yes: Other (Left TTA) Edema: No Peripheral Pulses WNL: Yes Labs: CBC, BMP 03/07/17 06:40 03/07/17 06:40 INR, PTT INR 1.15 (0.82-1.09) H 02/27/17 17:23 - ....Imaging Chest X-ray: Report Reviewed (Normal) Problem List - Problems (1) T2DM (type 2 diabetes mellitus) Assessment/Plan: On Insulin at present Fs are hig increase 75/25 32 unit BID Code(s): E11.9 - TYPE 2 DIABETES MELLITUS WITHOUT COMPLICATIONS Qualifiers: Diabetes mellitus complication status: with circulatory complication Diabetes mellitus complication detail: with peripheral angiopathy with gangrene (2) HTN (hypertension) Assessment/Plan: Well controlled cont current home meds Code(s): I10 - ESSENTIAL (PRIMARY) HYPERTENSION Qualifiers: Hypertension type: essential hypertension Qualified Code(s): I10 - Essential (primary) hypertension (3) Gangrene of toe Assessment/Plan: S/P amputation cont wound care IV abx, wound grew Poly-microbial growth sensitivity is pending. S/P Left TTA Post OP day 3. Code(s): I96 - GANGRENE, NOT ELSEWHERE CLASSIFIED (4) Cellulitis in diabetic foot Assessment/Plan: Spiked Post Operatively , cont IV abx and wound care, F/U wound care. (5) PVD (peripheral vascular disease) Assessment/Plan: Left LE gangrene s/p amputation, . Code(s): I73.9 - PERIPHERAL VASCULAR DISEASE, UNSPECIFIED (6) Fever Assessment/Plan: Post OP now afebrile, TWBC improving Blood cultures are -ve, F/U CXR and UA Code(s): R50.9 - FEVER, UNSPECIFIED Qualifiers: Fever type: post-procedural Qualified Code(s): R50.82 - Postprocedural fever
[2017-03-07] MEDS: QUEtiapine FUMARATE 50 MG TABLET PO SCH (21:24)
[2017-03-07] MEDS: MIRTAZAPINE 15 MG TABLET (FP) PO SCH (21:24)
[2017-03-07] MEDS: LATANOPROST 0.005% OPHTH SOLN 2.5ML BOTTLE OU SCH (21:36)
[2017-03-08] MEDS: INSULIN SLIDING SCALE (NOVOLOG) 1 VIAL SQ SCH ×4 (06:19→21:46)
[2017-03-08] MEDS: INSULIN (NOVOLOG MIX 70/30) 100 UNITS/ML MDV SQ SCH ×2 (06:21→17:38)
[2017-03-08] MEDS ORDERED: PT OWN MED DRAWER 7, Y5N ONE ×5 (08:06→21:04)
[2017-03-08] MEDS: TAMSULOSIN HCL 0.4 MG CAP.ER.24H (FP) PO SCH (08:08)
[2017-03-08] MEDS: NON-FORMULARY MED PO SCH (08:09)
[2017-03-08 08:29] LABS: BASOPHIL 0.2 % (0-2.0); EOSINOPHIL 1.4 % (0-4.5); MCH 32.1 pg (25.7-33.7); MCHC 33.9 g/dl (32.0-35.9); MEAN CELL VOLUME 94.7 fl (80-96); MEAN PLT VOLUME 7.4 fl (7.5-11.1); NEUTROPHILS 69.3 % (42.8-82.8); PLATELET COUNT 209 K/MM3 (134-434); RDW 14.8 % (11.9-15.9); WHITE BLOOD COUNT 4.1 K/mm3 (4.0-10.0)
[2017-03-08] MEDS: amLODIPine BESYLATE 10 MG TABLET (FP) PO SCH (09:34)
[2017-03-08] MEDS: METOPROLOL SUCCINATE 100 MG TAB.SR.24H (FP) PO SCH (09:34)
[2017-03-08] MEDS: VALSARTAN 160 MG TABLET (UD) PO SCH ×2 (09:34→21:46)
[2017-03-08] MEDS: MEMANTINE HCL 10 MG TABLET (FP) PO SCH ×2 (09:34→21:46)
[2017-03-08] MEDS: GABAPENTIN 300 MG CAPSULE (FP) PO SCH ×2 (09:34→21:46)
[2017-03-08] MEDS: HEPARIN NA (PORCINE) 5,000 UNITS/ML 1ML VIAL SQ SCH ×2 (09:34→21:46)
[2017-03-08] MEDS: TIMOLOL 0.5% OPHTHALMIC SOL 5 ML BOTTLE OU SCH ×2 (09:38→21:47)
[2017-03-08] MEDS: ERTAPENEM SODIUM 1 GM in SODIUM CHLORIDE 50 ML IVPB SCH (09:39)
[2017-03-08] MEDS: BRIMONIDINE TARTRATE 0.1% OPHTHALMIC 5 ML BOTTLE OU SCH (09:42)
--- NOTE | 2017-03-08 09:49 | PN ---
Progress Note, Physician Chief Complaint: Feels better History of Present Illness: S/P amputation Lt foot - Current Medication List Current Medications: Active Medications Acetaminophen (Tylenol -) 650 mg PO Q6H PRN PRN Reason: FEVER OR PAIN Last Admin: 03/06/17 15:16 Dose: 650 mg Amlodipine Besylate (Norvasc -) 10 mg PO DAILY [facility] Last Admin: 03/07/17 09:28 Dose: 10 mg Brimonidine Tartrate (Alphagan P 0.1% -) 1 drop OU DAILY [facility] Last Admin: 03/07/17 09:27 Dose: 1 drop Collagenase (Santyl -) 1 applic TP DAILY [facility] Last Admin: 03/07/17 09:32 Dose: 1 applic Dorzolamide HCl (Trusopt 2%) 1 drop OU BID [facility] Last Admin: 03/07/17 21:36 Dose: 1 drop Gabapentin (Neurontin -) 300 mg PO BID [facility] Last Admin: 03/07/17 21:24 Dose: 300 mg Heparin Sodium (Porcine) (Heparin -) 5,000 unit SQ BID [facility] Last Admin: 03/07/17 21:25 Dose: 5,000 unit Ertapenem 1 gm/ Sodium (Chloride) 50 mls @ 50 mls/hr IVPB DAILY [facility] PRN Reason: Protocol Last Admin: 03/07/17 09:42 Dose: 50 mls/hr Insulin Aspart (Novolog Vial Sliding Scale -) 1 vial SQ ACHS [facility] PRN Reason: Protocol Last Admin: 03/08/17 06:19 Dose: Not Given Insulin Aspart (Novolog Mix 70/30 Vial) 30 units SQ BIDI [facility] Last Admin: 03/08/17 06:21 Dose: 30 units Latanoprost (Xalatan 0.005% Eye Drops -) 1 drop OU HS [facility] Last Admin: 03/07/17 21:36 Dose: 1 drop Memantine (Namenda -) 10 mg PO BID [facility] Last Admin: 03/07/17 21:24 Dose: 10 mg Metoprolol Succinate (Toprol Xl -) 100 mg PO DAILY [facility] Last Admin: 03/07/17 09:28 Dose: 100 mg Mirtazapine (Remeron -) 15 mg PO HS [facility] Last Admin: 03/07/17 21:24 Dose: 15 mg Non-Formulary Medication (Non-Formulary Med) 1 each PO DAILY@0900 [facility] Last Admin: 03/08/17 08:09 Dose: 1 each Quetiapine Fumarate (Seroquel -) 50 mg PO HS [facility] Last Admin: 03/07/17 21:24 Dose: 50 mg Tamsulosin HCl (Flomax -) 0.4 mg PO DAILY@0830 [facility] Last Admin: 03/08/17 08:08 Dose: 0.4 mg Timolol Maleate (Timoptic 0.5%) 1 drop OU BID [facility] Last Admin: 03/07/17 21:36 Dose: 1 drop Valsartan (Diovan -) 160 mg PO BID [facility] Last Admin: 03/07/17 21:24 Dose: 160 mg - Objective Vital Signs: Vital Signs Temperature 97.9 F 03/08/17 06:44 Pulse Rate 63 03/08/17 06:44 Respiratory Rate 20 03/08/17 06:44 Blood Pressure 153/68 03/08/17 06:44 O2 Sat by Pulse Oximetry (%) 97 03/07/17 20:21 Constitutional: Yes: Anxious Eyes: Yes: WNL HENT: Yes: WNL Neck: Yes: WNL Cardiovascular: Yes: WNL Respiratory: Yes: WNL Gastrointestinal: Yes: Normal Bowel Sounds ...Rectal Exam: Yes: WNL Genitourinary: Yes: WNL Peripheral Pulses WNL: Yes Neurological: Yes: Alert Labs: CBC, BMP 03/08/17 07:10 INR, PTT INR 1.15 (0.82-1.09) H 02/27/17 17:23 Assessment/Plan Pt for ambulation
--- NOTE | 2017-03-08 09:52 | PN ---
Progress Note, Physician Chief Complaint: Post OP day 3 , afebrile, feels comfortable, no c/o pain..No Cough Diarrhea abd pain History of Present Illness: 81 year old male past medical history of diabetes, hypertension, hyperpiesia, Alzheimers, BPH, and depression/anxiety admitted with Left foot post operative infection S/P amputations left 2nd-4th toes due to gangrene 1 month ago, evaluated by vascular surgery and Id underwent debrinement under GA and subsequently TTA Left foot Post Op day 4 Patient remained afebrile. - Current Medication List Current Medications: Active Medications Acetaminophen (Tylenol -) 650 mg PO Q6H PRN PRN Reason: FEVER OR PAIN Last Admin: 03/06/17 15:16 Dose: 650 mg Amlodipine Besylate (Norvasc -) 10 mg PO DAILY [facility] Last Admin: 03/08/17 09:34 Dose: 10 mg Brimonidine Tartrate (Alphagan P 0.1% -) 1 drop OU DAILY [facility] Last Admin: 03/08/17 09:42 Dose: 1 drop Collagenase (Santyl -) 1 applic TP DAILY [facility] Last Admin: 03/07/17 09:32 Dose: 1 applic Dorzolamide HCl (Trusopt 2%) 1 drop OU BID [facility] Last Admin: 03/07/17 21:36 Dose: 1 drop Gabapentin (Neurontin -) 300 mg PO BID [facility] Last Admin: 03/08/17 09:34 Dose: 300 mg Heparin Sodium (Porcine) (Heparin -) 5,000 unit SQ BID [facility] Last Admin: 03/08/17 09:34 Dose: 5,000 unit Ertapenem 1 gm/ Sodium (Chloride) 50 mls @ 50 mls/hr IVPB DAILY [facility] PRN Reason: Protocol Last Admin: 03/08/17 09:39 Dose: 50 mls/hr Insulin Aspart (Novolog Vial Sliding Scale -) 1 vial SQ ACHS [facility] PRN Reason: Protocol Last Admin: 03/08/17 06:19 Dose: Not Given Insulin Aspart (Novolog Mix 70/30 Vial) 30 units SQ BIDI [facility] Last Admin: 03/08/17 06:21 Dose: 30 units Latanoprost (Xalatan 0.005% Eye Drops -) 1 drop OU HS [facility] Last Admin: 03/07/17 21:36 Dose: 1 drop Memantine (Namenda -) 10 mg PO BID [facility] Last Admin: 03/08/17 09:34 Dose: 10 mg Metoprolol Succinate (Toprol Xl -) 100 mg PO DAILY [facility] Last Admin: 03/08/17 09:34 Dose: 100 mg Mirtazapine (Remeron -) 15 mg PO [facility] Last Admin: 03/07/17 21:24 Dose: 15 mg Non-Formulary Medication (Non-Formulary Med) 1 each PO DAILY@0900 [facility] Last Admin: 03/08/17 08:09 Dose: 1 each Quetiapine Fumarate (Seroquel -) 50 mg PO [facility] Last Admin: 03/07/17 21:24 Dose: 50 mg Tamsulosin HCl (Flomax -) 0.4 mg PO DAILY@0830 [facility] Last Admin: 03/08/17 08:08 Dose: 0.4 mg Timolol Maleate (Timoptic 0.5%) 1 drop OU BID [facility] Last Admin: 03/08/17 09:38 Dose: 1 drop Valsartan (Diovan -) 160 mg PO BID [facility] Last Admin: 03/08/17 09:34 Dose: 160 mg - Objective Vital Signs: Vital Signs Temperature 97.9 F 03/08/17 06:44 Pulse Rate 63 03/08/17 06:44 Respiratory Rate 20 03/08/17 06:44 Blood Pressure 153/68 03/08/17 06:44 O2 Sat by Pulse Oximetry (%) 97 03/07/17 20:21 Constitutional: Yes: Well Nourished, No Distress, Calm Eyes: Yes: WNL, Conjunctiva Clear, EOM Intact HENT: Yes: WNL, Atraumatic, Normocephalic Neck: Yes: WNL, Supple, Trachea Midline Cardiovascular: Yes: WNL, Regular Rate and Rhythm, S1, S2. No: JVD, Murmur Respiratory: Yes: WNL, Regular, CTA Bilaterally Gastrointestinal: Yes: WNL, Normal Bowel Sounds, Soft Musculoskeletal: Yes: WNL Extremities: Yes: WNL, Amputation, Other (Left TTA) Edema: Yes Edema: LLE: Trace Peripheral Pulses: Left Doralis Pedis: 1+, Right Dorsalis Pedis: 1+ Wound/Incision: Yes: Other (In the dressing.) Neurological: Yes: WNL, Alert, Oriented ...Motor Strength: WNL, LUE, LLE, RUE, RLE Labs: CBC, BMP 03/08/17 07:10 INR, PTT INR 1.15 (0.82-1.09) H 02/27/17 17:23 Problem List - Problems (1) T2DM (type 2 diabetes mellitus) Assessment/Plan: On Insulin at FS are acceptable, cont 75/25 32 unit BID Code(s): E11.9 - TYPE 2 DIABETES MELLITUS WITHOUT COMPLICATIONS (2) HTN (hypertension) Assessment/Plan: Well controlled cont current home meds Code(s): I10 - ESSENTIAL (PRIMARY) HYPERTENSION Qualifiers: Qualified Code(s): I10 - Essential (primary) hypertension (3) Gangrene of toe Assessment/Plan: S/P amputation cont wound care IV abx, wound grew Poly-microbial growth sensitivity is pending. S/P Left TTA Post OP day 4. Code(s): I96 - GANGRENE, NOT ELSEWHERE CLASSIFIED (4) Cellulitis in diabetic foot Assessment/Plan: Spiked Post Operatively, now afebrile, , cont IV abx and wound care, F/U wound care. (5) PVD (peripheral vascular disease) Assessment/Plan: Left LE gangrene s/p amputation, . Code(s): I73.9 - PERIPHERAL VASCULAR DISEASE, UNSPECIFIED (6) Fever Assessment/Plan: Post OP now afebrile, TWBC improving Blood cultures are -ve, F/U CXR and UA Code(s): R50.9 - FEVER, UNSPECIFIED Qualifiers: Qualified Code(s): R50.82 - Postprocedural fever
--- NOTE | 2017-03-08 09:55 | PN ---
Progress Note, Physician History of Present Illness: patient doing much better no new issues in room - Current Medication List Current Medications: Active Medications Acetaminophen (Tylenol -) 650 mg PO Q6H PRN PRN Reason: FEVER OR PAIN Last Admin: 03/06/17 15:16 Dose: 650 mg Amlodipine Besylate (Norvasc -) 10 mg PO DAILY [facility] Last Admin: 03/08/17 09:34 Dose: 10 mg Brimonidine Tartrate (Alphagan P 0.1% -) 1 drop OU DAILY [facility] Last Admin: 03/08/17 09:42 Dose: 1 drop Collagenase (Santyl -) 1 applic TP DAILY [facility] Last Admin: 03/07/17 09:32 Dose: 1 applic Dorzolamide HCl (Trusopt 2%) 1 drop OU BID [facility] Last Admin: 03/07/17 21:36 Dose: 1 drop Gabapentin (Neurontin -) 300 mg PO BID [facility] Last Admin: 03/08/17 09:34 Dose: 300 mg Heparin Sodium (Porcine) (Heparin -) 5,000 unit SQ BID [facility] Last Admin: 03/08/17 09:34 Dose: 5,000 unit Ertapenem 1 gm/ Sodium (Chloride) 50 mls @ 50 mls/hr IVPB DAILY [facility] PRN Reason: Protocol Last Admin: 03/08/17 09:39 Dose: 50 mls/hr Insulin Aspart (Novolog Vial Sliding Scale -) 1 vial SQ ACHS [facility] PRN Reason: Protocol Last Admin: 03/08/17 06:19 Dose: Not Given Insulin Aspart (Novolog Mix 70/30 Vial) 30 units SQ BIDI [facility] Last Admin: 03/08/17 06:21 Dose: 30 units Latanoprost (Xalatan 0.005% Eye Drops -) 1 drop OU HS [facility] Last Admin: 03/07/17 21:36 Dose: 1 drop Memantine (Namenda -) 10 mg PO BID [facility] Last Admin: 03/08/17 09:34 Dose: 10 mg Metoprolol Succinate (Toprol Xl -) 100 mg PO DAILY [facility] Last Admin: 03/08/17 09:34 Dose: 100 mg Mirtazapine (Remeron -) 15 mg PO HS [facility] Last Admin: 03/07/17 21:24 Dose: 15 mg Non-Formulary Medication (Non-Formulary Med) 1 each PO DAILY@0900 [facility] Last Admin: 03/08/17 08:09 Dose: 1 each Quetiapine Fumarate (Seroquel -) 50 mg PO HS [facility] Last Admin: 03/07/17 21:24 Dose: 50 mg Tamsulosin HCl (Flomax -) 0.4 mg PO DAILY@0830 [facility] Last Admin: 03/08/17 08:08 Dose: 0.4 mg Timolol Maleate (Timoptic 0.5%) 1 drop OU BID [facility] Last Admin: 03/08/17 09:38 Dose: 1 drop Valsartan (Diovan -) 160 mg PO BID [facility] Last Admin: 03/08/17 09:34 Dose: 160 mg - Objective Vital Signs: Vital Signs Temperature 97.9 F 03/08/17 06:44 Pulse Rate 63 03/08/17 06:44 Respiratory Rate 20 03/08/17 06:44 Blood Pressure 153/68 03/08/17 06:44 O2 Sat by Pulse Oximetry (%) 97 03/07/17 20:21 Constitutional: Yes: No Distress, Calm Cardiovascular: Yes: Regular Rate and Rhythm Respiratory: Yes: Regular, CTA Bilaterally Gastrointestinal: Yes: Normal Bowel Sounds, Soft Musculoskeletal: Yes: Joint Stiffness Extremities: Yes: Other Wound/Incision: Yes: Dressing Dry and Intact Neurological: Yes: Alert, Oriented Psychiatric: Yes: Alert, Oriented Labs: CBC, BMP 03/08/17 07:10 INR, PTT INR 1.15 (0.82-1.09) H 02/27/17 17:23 Assessment/Plan wound infection dm pvd leukocytosis plan continue ertapenam will stop it after mondays dose rest ct current [facility] physio
[2017-03-08] MEDS: COLLAGENASE CLOSTRIDIUM HIST. 30 GRAMS TUBE TP SCH (10:00)
[2017-03-08 10:27] LABS: ALBUMIN 2.4 g/dl (3.4-5.0); BILIRUBIN,TOTAL 0.5 mg/dL (0.2-1.0); COCKROFT - GAULT 53.36; CREATININE 1.2 mg/dL (0.7-1.3); TOT PROT 5.2 g/dl (6.4-8.2)
--- NOTE | 2017-03-08 12:50 | OP ---
DATE OF OPERATION: 02/28/2017 PREOPERATIVE DIAGNOSIS: Necrotic left foot. POSTOPERATIVE DIAGNOSIS: Necrotic left foot. PROCEDURE: Excisional debridement skin and subcutaneous tissue, muscle, tendon and bone, left foot. SURGEON: Jey Moscoso MD ANESTHESIA: Fractional. BLOOD LOSS: 50 mL. INDICATIONS: The patient is an 81-year-old male who had amputation of his 2nd, 3rd, and 4th toes, and was then left with a defect in that area. He had a VAC dressing placed and now comes back into the hospital with a necrotic wound. It was decided that he would need debridement. Patient was consented for the procedure understanding all risks, benefits, and alternatives and was then taken to the operating room. PROCEDURE IN DETAIL: Once in the operating room, he was placed on the operating table in the supine manner, and the area of the left foot was prepped and draped in the sterile surgical manner. We then, using a No. 15 blade, excised all the necrotic skin, subcutaneous tissue, getting down to the muscle, and the muscle was excised using a 15 blade. Bovie electrocautery was used to control hemostasis. Tendon was exposed with pus, and that was also clamped and cut and excised using a No. 15 blade. We got down to the metatarsal. We got down to the rays of the 2nd, 3rd, and 4th toes, and using a rongeur, the bone was taken back. At this point, the wound was well irrigated with saline. Moist dressing was placed to pack the wound, 4x4 and Kerlix were placed. Patient tolerated the procedure with no complications. Patient transferred to PACU in stable condition. JEY MOSCOSO DO NP/[id number]
[2017-03-08] MEDS: DORZOLAMIDE 2% HCL OPHTHALMIC SOLUTION 10 ML BOTTLE OU SCH ×2 (12:55→21:49)
[2017-03-08] MEDS: MIRTAZAPINE 15 MG TABLET (FP) PO SCH (21:46)
[2017-03-08] MEDS: QUEtiapine FUMARATE 50 MG TABLET PO SCH (21:47)
[2017-03-08] MEDS: LATANOPROST 0.005% OPHTH SOLN 2.5ML BOTTLE OU SCH (21:48)
[2017-03-09] MEDS: INSULIN (NOVOLOG MIX 70/30) 100 UNITS/ML MDV SQ SCH ×2 (06:39→18:25)
[2017-03-09] MEDS: INSULIN SLIDING SCALE (NOVOLOG) 1 VIAL SQ SCH ×4 (06:39→22:28)
[2017-03-09] MEDS ORDERED: PT OWN MED DRAWER 7, Y5N ONE ×2 (08:03→21:30)
[2017-03-09] MEDS: TAMSULOSIN HCL 0.4 MG CAP.ER.24H (FP) PO SCH (08:55)
[2017-03-09] MEDS: amLODIPine BESYLATE 10 MG TABLET (FP) PO SCH (09:56)
[2017-03-09] MEDS: VALSARTAN 160 MG TABLET (UD) PO SCH ×2 (09:57→22:08)
[2017-03-09] MEDS: NON-FORMULARY MED PO SCH (09:57)
[2017-03-09] MEDS: GABAPENTIN 300 MG CAPSULE (FP) PO SCH ×2 (09:57→22:06)
[2017-03-09] MEDS: HEPARIN NA (PORCINE) 5,000 UNITS/ML 1ML VIAL SQ SCH ×2 (09:57→22:07)
[2017-03-09] MEDS: METOPROLOL SUCCINATE 100 MG TAB.SR.24H (FP) PO SCH (09:57)
[2017-03-09] MEDS: MEMANTINE HCL 10 MG TABLET (FP) PO SCH ×2 (09:57→22:08)
[2017-03-09] MEDS: COLLAGENASE CLOSTRIDIUM HIST. 30 GRAMS TUBE TP SCH (10:00)
[2017-03-09] MEDS: DORZOLAMIDE 2% HCL OPHTHALMIC SOLUTION 10 ML BOTTLE OU SCH ×2 (10:00→22:09)
[2017-03-09] MEDS: TIMOLOL 0.5% OPHTHALMIC SOL 5 ML BOTTLE OU SCH ×2 (10:02→22:09)
[2017-03-09] MEDS: BRIMONIDINE TARTRATE 0.1% OPHTHALMIC 5 ML BOTTLE OU SCH (10:02)
--- NOTE | 2017-03-09 11:00 | PN ---
Progress Note, Physician History of Present Illness: stable doing well no new issues - Current Medication List Current Medications: Active Medications Acetaminophen (Tylenol -) 650 mg PO Q6H PRN PRN Reason: FEVER OR PAIN Last Admin: 03/06/17 15:16 Dose: 650 mg Amlodipine Besylate (Norvasc -) 10 mg PO DAILY [facility] Last Admin: 03/09/17 09:56 Dose: 10 mg Brimonidine Tartrate (Alphagan P 0.1% -) 1 drop OU DAILY [facility] Last Admin: 03/09/17 10:02 Dose: 1 drop Collagenase (Santyl -) 1 applic TP DAILY [facility] Last Admin: 03/09/17 10:00 Dose: Not Given Dorzolamide HCl (Trusopt 2%) 1 drop OU BID [facility] Last Admin: 03/09/17 10:00 Dose: 1 drop Gabapentin (Neurontin -) 300 mg PO BID [facility] Last Admin: 03/09/17 09:57 Dose: 300 mg Heparin Sodium (Porcine) (Heparin -) 5,000 unit SQ BID [facility] Last Admin: 03/09/17 09:57 Dose: 5,000 unit Ertapenem 1 gm/ Sodium (Chloride) 50 mls @ 50 mls/hr IVPB DAILY [facility] PRN Reason: Protocol Last Admin: 03/08/17 09:39 Dose: 50 mls/hr Insulin Aspart (Novolog Vial Sliding Scale -) 1 vial SQ ACHS [facility] PRN Reason: Protocol Last Admin: 03/09/17 06:39 Dose: 2 units Insulin Aspart (Novolog Mix 70/30 Vial) 30 units SQ BIDI [facility] Last Admin: 03/09/17 06:39 Dose: 30 units Latanoprost (Xalatan 0.005% Eye Drops -) 1 drop OU HS [facility] Last Admin: 03/08/17 21:48 Dose: 1 drop Memantine (Namenda -) 10 mg PO BID [facility] Last Admin: 03/09/17 09:57 Dose: 10 mg Metoprolol Succinate (Toprol Xl -) 100 mg PO DAILY [facility] Last Admin: 03/09/17 09:57 Dose: 100 mg Mirtazapine (Remeron -) 15 mg PO HS [facility] Last Admin: 03/08/17 21:46 Dose: 15 mg Non-Formulary Medication (Non-Formulary Med) 1 each PO DAILY@0900 [facility] Last Admin: 03/09/17 09:57 Dose: 1 each Quetiapine Fumarate (Seroquel -) 50 mg PO HS [facility] Last Admin: 03/08/17 21:47 Dose: 50 mg Tamsulosin HCl (Flomax -) 0.4 mg PO DAILY@0830 [facility] Last Admin: 03/09/17 08:55 Dose: 0.4 mg Timolol Maleate (Timoptic 0.5%) 1 drop OU BID [facility] Last Admin: 03/09/17 10:02 Dose: 1 drop Valsartan (Diovan -) 160 mg PO BID [facility] Last Admin: 03/09/17 09:57 Dose: 160 mg - Objective Vital Signs: Vital Signs Temperature 97.6 F 03/09/17 06:00 Pulse Rate 58 L 03/09/17 06:00 Respiratory Rate 18 03/09/17 06:00 Blood Pressure 153/63 03/09/17 06:00 O2 Sat by Pulse Oximetry (%) 98 03/08/17 21:00 Constitutional: Yes: No Distress, Calm Cardiovascular: Yes: Regular Rate and Rhythm Respiratory: Yes: Regular, CTA Bilaterally Gastrointestinal: Yes: Normal Bowel Sounds, Soft Musculoskeletal: Yes: Other Extremities: Yes: Other Wound/Incision: Yes: Dressing Dry and Intact Neurological: Yes: Alert, Oriented Labs: CBC, BMP 03/08/17 07:10 03/08/17 07:10 INR, PTT INR 1.15 (0.82-1.09) H 02/27/17 17:23 Assessment/Plan wound infection dm pvd leukocytosis plan continue ertapenam tomorrow will be the last dose wound care physio rest as per primary
[2017-03-09] MEDS: ERTAPENEM SODIUM 1 GM in SODIUM CHLORIDE 50 ML IVPB SCH (12:48)
--- NOTE | 2017-03-09 14:52 | PN ---
Progress Note, Physician Chief Complaint: Feels better History of Present Illness: S/P amputation Lt foot On IV antibiotics, Ertapenem - Current Medication List Current Medications: Active Medications Acetaminophen (Tylenol -) 650 mg PO Q6H PRN PRN Reason: FEVER OR PAIN Last Admin: 03/06/17 15:16 Dose: 650 mg Amlodipine Besylate (Norvasc -) 10 mg PO DAILY [facility] Last Admin: 03/09/17 09:56 Dose: 10 mg Brimonidine Tartrate (Alphagan P 0.1% -) 1 drop OU DAILY [facility] Last Admin: 03/09/17 10:02 Dose: 1 drop Collagenase (Santyl -) 1 applic TP DAILY [facility] Last Admin: 03/09/17 10:00 Dose: Not Given Dorzolamide HCl (Trusopt 2%) 1 drop OU BID [facility] Last Admin: 03/09/17 10:00 Dose: 1 drop Gabapentin (Neurontin -) 300 mg PO BID [facility] Last Admin: 03/09/17 09:57 Dose: 300 mg Heparin Sodium (Porcine) (Heparin -) 5,000 unit SQ BID [facility] Last Admin: 03/09/17 09:57 Dose: 5,000 unit Ertapenem 1 gm/ Sodium (Chloride) 50 mls @ 50 mls/hr IVPB DAILY [facility] PRN Reason: Protocol Last Admin: 03/09/17 12:48 Dose: 50 mls/hr Insulin Aspart (Novolog Vial Sliding Scale -) 1 vial SQ ACHS [facility] PRN Reason: Protocol Last Admin: 03/09/17 11:58 Dose: 4 units Insulin Aspart (Novolog Mix 70/30 Vial) 30 units SQ BIDI [facility] Last Admin: 03/09/17 06:39 Dose: 30 units Latanoprost (Xalatan 0.005% Eye Drops -) 1 drop OU HS [facility] Last Admin: 03/08/17 21:48 Dose: 1 drop Memantine (Namenda -) 10 mg PO BID [facility] Last Admin: 03/09/17 09:57 Dose: 10 mg Metoprolol Succinate (Toprol Xl -) 100 mg PO DAILY [facility] Last Admin: 03/09/17 09:57 Dose: 100 mg Mirtazapine (Remeron -) 15 mg PO HS [facility] Last Admin: 03/08/17 21:46 Dose: 15 mg Non-Formulary Medication (Non-Formulary Med) 1 each PO DAILY@0900 [facility] Last Admin: 03/09/17 09:57 Dose: 1 each Quetiapine Fumarate (Seroquel -) 50 mg PO HS [facility] Last Admin: 03/08/17 21:47 Dose: 50 mg Tamsulosin HCl (Flomax -) 0.4 mg PO DAILY@0830 [facility] Last Admin: 03/09/17 08:55 Dose: 0.4 mg Timolol Maleate (Timoptic 0.5%) 1 drop OU BID [facility] Last Admin: 03/09/17 10:02 Dose: 1 drop Valsartan (Diovan -) 160 mg PO BID [facility] Last Admin: 03/09/17 09:57 Dose: 160 mg - Objective Vital Signs: Vital Signs Temperature 98.2 F 03/09/17 14:15 Pulse Rate 59 L 03/09/17 14:15 Respiratory Rate 18 03/09/17 14:15 Blood Pressure 137/86 03/09/17 14:15 O2 Sat by Pulse Oximetry (%) 98 03/08/17 21:00 Constitutional: Yes: No Distress Eyes: Yes: WNL HENT: Yes: WNL Neck: Yes: WNL Cardiovascular: Yes: WNL Respiratory: Yes: WNL Gastrointestinal: Yes: WNL ...Rectal Exam: Yes: WNL, Deferred Genitourinary: Yes: WNL Breast(s): Yes: WNL Musculoskeletal: Yes: Muscle Weakness Wound/Incision: Yes: Clean/Dry Neurological: Yes: Alert Labs: CBC, BMP 03/08/17 07:10 03/08/17 07:10 INR, PTT INR 1.15 (0.82-1.09) H 02/27/17 17:23 Assessment/Plan Continue same trt
[2017-03-09] MEDS: MIRTAZAPINE 15 MG TABLET (FP) PO SCH (22:06)
[2017-03-09] MEDS: QUEtiapine FUMARATE 50 MG TABLET PO SCH (22:08)
[2017-03-09] MEDS: LATANOPROST 0.005% OPHTH SOLN 2.5ML BOTTLE OU SCH (22:13)
[2017-03-10] MEDS: INSULIN SLIDING SCALE (NOVOLOG) 1 VIAL SQ SCH ×4 (06:53→22:32)
[2017-03-10] MEDS: INSULIN (NOVOLOG MIX 70/30) 100 UNITS/ML MDV SQ SCH ×2 (08:07→17:46)
[2017-03-10] MEDS: TAMSULOSIN HCL 0.4 MG CAP.ER.24H (FP) PO SCH (08:40)
[2017-03-10] MEDS: COLLAGENASE CLOSTRIDIUM HIST. 30 GRAMS TUBE TP SCH (10:29)
[2017-03-10] MEDS ORDERED: PT OWN MED DRAWER 7, Y5N ONE ×2 (10:54→22:11)
[2017-03-10] MEDS: VALSARTAN 160 MG TABLET (UD) PO SCH ×2 (10:56→22:33)
[2017-03-10] MEDS: NON-FORMULARY MED PO SCH (10:56)
[2017-03-10] MEDS: MEMANTINE HCL 10 MG TABLET (FP) PO SCH ×2 (10:56→22:33)
[2017-03-10] MEDS: GABAPENTIN 300 MG CAPSULE (FP) PO SCH ×2 (10:56→22:34)
[2017-03-10] MEDS: HEPARIN NA (PORCINE) 5,000 UNITS/ML 1ML VIAL SQ SCH ×2 (10:57→22:37)
[2017-03-10] MEDS: amLODIPine BESYLATE 10 MG TABLET (FP) PO SCH (10:57)
[2017-03-10] MEDS: METOPROLOL SUCCINATE 100 MG TAB.SR.24H (FP) PO SCH (10:57)
[2017-03-10] MEDS: ERTAPENEM SODIUM 1 GM in SODIUM CHLORIDE 50 ML IVPB SCH (10:58)
[2017-03-10] MEDS: BRIMONIDINE TARTRATE 0.1% OPHTHALMIC 5 ML BOTTLE OU SCH (10:58)
[2017-03-10] MEDS: TIMOLOL 0.5% OPHTHALMIC SOL 5 ML BOTTLE OU SCH ×2 (11:00→22:34)
[2017-03-10] MEDS: DORZOLAMIDE 2% HCL OPHTHALMIC SOLUTION 10 ML BOTTLE OU SCH ×2 (11:00→22:35)
--- NOTE | 2017-03-10 11:53 | PN ---
Progress Note (short form) - Note Progress Note: Vascular Surgery Pt seen and examined. Doing well. dressing changed with family. Pt will need PT -- to learn how to use crutches. Pt will restart HBO upon DC home. Family to speak to social service regarding home health aide. Jey Hernandez DO
--- NOTE | 2017-03-10 16:17 | PN ---
Progress Note, Physician History of Present Illness: stable doing well no new issues - Current Medication List Current Medications: Active Medications Acetaminophen (Tylenol -) 650 mg PO Q6H PRN PRN Reason: FEVER OR PAIN Last Admin: 03/06/17 15:16 Dose: 650 mg Amlodipine Besylate (Norvasc -) 10 mg PO DAILY [facility] Last Admin: 03/10/17 10:57 Dose: 10 mg Brimonidine Tartrate (Alphagan P 0.1% -) 1 drop OU DAILY [facility] Last Admin: 03/10/17 10:58 Dose: 1 drop Collagenase (Santyl -) 1 applic TP DAILY [facility] Last Admin: 03/10/17 10:29 Dose: Not Given Dorzolamide HCl (Trusopt 2%) 1 drop OU BID [facility] Last Admin: 03/10/17 11:00 Dose: 1 drop Gabapentin (Neurontin -) 300 mg PO BID [facility] Last Admin: 03/10/17 10:56 Dose: 300 mg Heparin Sodium (Porcine) (Heparin -) 5,000 unit SQ BID [facility] Last Admin: 03/10/17 10:57 Dose: 5,000 unit Ertapenem 1 gm/ Sodium (Chloride) 50 mls @ 50 mls/hr IVPB DAILY [facility] PRN Reason: Protocol Last Admin: 03/10/17 10:58 Dose: 50 mls/hr Insulin Aspart (Novolog Vial Sliding Scale -) 1 vial SQ ACHS [facility] PRN Reason: Protocol Last Admin: 03/10/17 11:43 Dose: 2 units Insulin Aspart (Novolog Mix 70/30 Vial) 30 units SQ BIDI [facility] Last Admin: 03/10/17 08:07 Dose: 30 units Latanoprost (Xalatan 0.005% Eye Drops -) 1 drop OU HS [facility] Last Admin: 03/09/17 22:13 Dose: 1 drop Memantine (Namenda -) 10 mg PO BID [facility] Last Admin: 03/10/17 10:56 Dose: 10 mg Metoprolol Succinate (Toprol Xl -) 100 mg PO DAILY [facility] Last Admin: 03/10/17 10:57 Dose: 100 mg Mirtazapine (Remeron -) 15 mg PO HS [facility] Last Admin: 03/09/17 22:06 Dose: 15 mg Non-Formulary Medication (Non-Formulary Med) 1 each PO DAILY@0900 [facility] Last Admin: 03/10/17 10:56 Dose: 1 each Quetiapine Fumarate (Seroquel -) 50 mg PO HS [facility] Last Admin: 03/09/17 22:08 Dose: 50 mg Tamsulosin HCl (Flomax -) 0.4 mg PO DAILY@0830 [facility] Last Admin: 03/10/17 08:40 Dose: 0.4 mg Timolol Maleate (Timoptic 0.5%) 1 drop OU BID [facility] Last Admin: 03/10/17 11:00 Dose: 1 drop Valsartan (Diovan -) 160 mg PO BID [facility] Last Admin: 03/10/17 10:56 Dose: 160 mg - Objective Vital Signs: Vital Signs Temperature 98.1 F 03/10/17 14:00 Pulse Rate 57 L 03/10/17 14:00 Respiratory Rate 18 03/10/17 14:00 Blood Pressure 119/54 03/10/17 14:00 O2 Sat by Pulse Oximetry (%) 98 03/10/17 09:00 Constitutional: Yes: No Distress, Calm Cardiovascular: Yes: Regular Rate and Rhythm Respiratory: Yes: Regular, CTA Bilaterally Gastrointestinal: Yes: Normal Bowel Sounds, Soft Musculoskeletal: Yes: Other Extremities: Yes: Other Wound/Incision: Yes: Dressing Dry and Intact Neurological: Yes: Alert, Oriented Psychiatric: Yes: Alert, Oriented Labs: CBC, BMP 03/08/17 07:10 03/08/17 07:10 INR, PTT INR 1.15 (0.82-1.09) H 02/27/17 17:23 Assessment/Plan wound infection dm pvd leukocytosis plan continue ertapenam tomorrow will be the last dose wound care physio rest as per primary
[2017-03-10] MEDS ORDERED: INSULIN (NOVOLOG) ASPART 100 UNITS/ML 10ML VIAL ONE (17:43)
[2017-03-10] MEDS ORDERED: INSULIN (NOVOLOG MIX 70/30) 100 UNITS/ML MDV SQ ONE (18:00)
[2017-03-10] MEDS: MIRTAZAPINE 15 MG TABLET (FP) PO SCH (22:33)
[2017-03-10] MEDS: QUEtiapine FUMARATE 50 MG TABLET PO SCH (22:34)
[2017-03-10] MEDS: LATANOPROST 0.005% OPHTH SOLN 2.5ML BOTTLE OU SCH (22:36)
[2017-03-11] MEDS: INSULIN SLIDING SCALE (NOVOLOG) 1 VIAL SQ SCH ×4 (06:20→22:08)
[2017-03-11 08:10] LABS: MCH 24.7 pg (25.7-33.7); MCHC 32.4 g/dl (32.0-35.9); MEAN CELL VOLUME 76.1 fl (80-96); MEAN PLT VOLUME 7.4 fl (7.5-11.1); PLATELET COUNT 404 K/MM3 (134-434); RDW 18.4 % (11.9-15.9); WHITE BLOOD COUNT 9.3 K/mm3 (4.0-10.0)
[2017-03-11] MEDS: INSULIN (NOVOLOG MIX 70/30) 100 UNITS/ML MDV SQ SCH ×2 (08:53→17:55)
[2017-03-11 08:55] LABS: ALBUMIN 2.5 g/dl (3.4-5.0); ANION GAP 9 (8-16); CALCIUM 8.9 mg/dL (8.5-10.1); CO2 26 mmol/L (21-32); COCKROFT - GAULT 64.03; GLUCOSE,RANDOM 136 mg/dL (74-106); SGOT/AST 44 U/L (15-37); SGPT/ALT 76 U/L (12-78)
[2017-03-11 08:57] LABS: ALK PHOS 107 U/L (45-117); BILIRUBIN,TOTAL 0.3 mg/dL (0.2-1.0); TOT PROT 6.5 g/dl (6.4-8.2)
[2017-03-11] MEDS: TAMSULOSIN HCL 0.4 MG CAP.ER.24H (FP) PO SCH (08:57)
--- NOTE | 2017-03-11 09:36 | PN ---
Progress Note, Physician Chief Complaint: No complaints History of Present Illness: S/P Lt trnsmetatarsal amputation - Current Medication List Current Medications: Active Medications Acetaminophen (Tylenol -) 650 mg PO Q6H PRN PRN Reason: FEVER OR PAIN Last Admin: 03/06/17 15:16 Dose: 650 mg Amlodipine Besylate (Norvasc -) 10 mg PO DAILY [facility] Last Admin: 03/10/17 10:57 Dose: 10 mg Brimonidine Tartrate (Alphagan P 0.1% -) 1 drop OU DAILY [facility] Last Admin: 03/10/17 10:58 Dose: 1 drop Collagenase (Santyl -) 1 applic TP DAILY [facility] Last Admin: 03/10/17 10:29 Dose: Not Given Dorzolamide HCl (Trusopt 2%) 1 drop OU BID [facility] Last Admin: 03/10/17 22:35 Dose: 1 drop Gabapentin (Neurontin -) 300 mg PO BID [facility] Last Admin: 03/10/17 22:34 Dose: 300 mg Heparin Sodium (Porcine) (Heparin -) 5,000 unit SQ BID [facility] Last Admin: 03/10/17 22:37 Dose: 5,000 unit Ertapenem 1 gm/ Sodium (Chloride) 50 mls @ 50 mls/hr IVPB DAILY [facility] PRN Reason: Protocol Last Admin: 03/10/17 10:58 Dose: 50 mls/hr Insulin Aspart (Novolog Vial Sliding Scale -) 1 vial SQ ACHS [facility] PRN Reason: Protocol Last Admin: 03/11/17 06:20 Dose: Not Given Insulin Aspart (Novolog Mix 70/30 Vial) 30 units SQ BIDI [facility] Last Admin: 03/11/17 08:53 Dose: 30 units Latanoprost (Xalatan 0.005% Eye Drops -) 1 drop OU HS [facility] Last Admin: 03/10/17 22:36 Dose: 1 drop Memantine (Namenda -) 10 mg PO BID [facility] Last Admin: 03/10/17 22:33 Dose: 10 mg Metoprolol Succinate (Toprol Xl -) 100 mg PO DAILY [facility] Last Admin: 03/10/17 10:57 Dose: 100 mg Mirtazapine (Remeron -) 15 mg PO HS [facility] Last Admin: 03/10/17 22:33 Dose: 15 mg Non-Formulary Medication (Non-Formulary Med) 1 each PO DAILY@0900 [facility] Last Admin: 03/10/17 10:56 Dose: 1 each Quetiapine Fumarate (Seroquel -) 50 mg PO HS [facility] Last Admin: 03/10/17 22:34 Dose: 50 mg Tamsulosin HCl (Flomax -) 0.4 mg PO DAILY@0830 [facility] Last Admin: 03/11/17 08:57 Dose: 0.4 mg Timolol Maleate (Timoptic 0.5%) 1 drop OU BID [facility] Last Admin: 03/10/17 22:34 Dose: 1 drop Valsartan (Diovan -) 160 mg PO BID [facility] Last Admin: 03/10/17 22:33 Dose: 160 mg - Objective Vital Signs: Vital Signs Temperature 97.8 F 03/11/17 06:43 Pulse Rate 59 L 03/11/17 06:43 Respiratory Rate 18 03/11/17 06:43 Blood Pressure 145/66 03/11/17 06:43 O2 Sat by Pulse Oximetry (%) 98 03/10/17 21:00 Constitutional: Yes: No Distress Eyes: Yes: WNL HENT: Yes: WNL Neck: Yes: WNL Cardiovascular: Yes: WNL Respiratory: Yes: WNL Gastrointestinal: Yes: WNL ...Rectal Exam: Yes: Deferred Extremities: Yes: Amputation Neurological: Yes: Alert Labs: CBC, BMP 03/11/17 07:00 03/11/17 07:00 INR, PTT INR 1.15 (0.82-1.09) H 02/27/17 17:23 Assessment/Plan teach him to use crutches
[2017-03-11] MEDS ORDERED: PT OWN MED DRAWER 7, Y5N ONE ×3 (09:57→21:27)
[2017-03-11] MEDS: amLODIPine BESYLATE 10 MG TABLET (FP) PO SCH (09:59)
[2017-03-11] MEDS: METOPROLOL SUCCINATE 100 MG TAB.SR.24H (FP) PO SCH (09:59)
[2017-03-11] MEDS: VALSARTAN 160 MG TABLET (UD) PO SCH ×2 (09:59→22:09)
[2017-03-11] MEDS: MEMANTINE HCL 10 MG TABLET (FP) PO SCH ×2 (09:59→22:11)
[2017-03-11] MEDS: GABAPENTIN 300 MG CAPSULE (FP) PO SCH ×2 (09:59→22:10)
[2017-03-11] MEDS: DORZOLAMIDE 2% HCL OPHTHALMIC SOLUTION 10 ML BOTTLE OU SCH ×2 (10:00→22:11)
[2017-03-11] MEDS: NON-FORMULARY MED PO SCH (10:02)
[2017-03-11] MEDS: BRIMONIDINE TARTRATE 0.1% OPHTHALMIC 5 ML BOTTLE OU SCH (10:02)
[2017-03-11] MEDS: HEPARIN NA (PORCINE) 5,000 UNITS/ML 1ML VIAL SQ SCH ×2 (10:03→22:09)
[2017-03-11] MEDS: TIMOLOL 0.5% OPHTHALMIC SOL 5 ML BOTTLE OU SCH ×2 (10:04→22:02)
--- NOTE | 2017-03-11 10:58 | CONS ---
DATE OF CONSULTATION: 03/11/2017 PHYSICAL MEDICINE REHABILITATION CONSULTATION REFERRING PHYSICIAN: Darron Presley MD HISTORY OF PRESENT ILLNESS: The patient is an 81-year-old man with past medical history of diabetes and peripheral vascular disease, who was admitted on February 27 with cellulitis and ulceration involving his left foot. The patient underwent evaluation and subsequently diagnosed with possible osteomyelitis. He was taken to the operating room on February 28, undergoing excisional debridement of the skin, subcutaneous tissue, muscle, tendon and bone in the left foot, performed by Dr. Hernandez. The patient also underwent left foot transmetatarsal amputation on March 04, 2017, performed by Dr. Hernandez. The patient is non-weight bearing to the left lower extremity. He was seen by Physical Therapy. He was able to hop about 5 feet with a rolling walker, minimal assist of two. The patient has no complaints of pain in the left lower extremity, but does have intermittent right knee pain, possibly due to underlying osteoarthritis. Blood work on admission showed elevated WBCs of 13.2, hemoglobin 10.5, platelet count 266. He did have a drop in his hemoglobin to 8.1 on March 06, undergoing blood transfusion, and current hemoglobin is increased to 9.6. WBCs are 9.3 and platelet count is stable at 404. The patient's chemistry showed elevated BUN today of 24, creatinine 1.0, decreased albumin at 2.5, clinical elevation in AST at 44, but otherwise normal chemistry. Again, the patient is seen in rehabilitation evaluation. He is hoping to return home, where he can stay on the first level and lives with his family. REVIEW PAST MEDICAL AND SURGICAL HISTORY: Diabetes, peripheral vascular disease, possibly right knee osteoarthritis. He has diabetic peripheral neuropathy. SOCIAL HISTORY: Again, he lives with family in a multilevel home, but he can stay on the first level and has family available. CURRENT FUNCTION: As above. REVIEW OF SYSTEMS: No lightheadedness or dizziness. No blurry vision or double vision. No nausea, vomiting, difficulty swallowing, difficulty chewing. No chest pain, shortness of breath, fever, chills, bowel or bladder incontinence. He does have gait instability, difficulty standing and ambulating. As noted above, numbness in the lower extremities and intermittent pain his right knee. No other joint arthralgias. No bowel or bladder change. PHYSICAL EXAMINATION: General: The patient is a well-developed, well-nourished man seeing lying in bed in no acute distress. HEENT: Normocephalic and atraumatic. Extraocular muscles appear intact. Neck: Supple. Extremities: He is status post transmetatarsal amputation in the left lower extremity, with a bandage on. No heel breakdown. No breakdown of the right distal lower extremity. No calf tenderness. Neuromuscular: Awake, alert, oriented x3. Cranial nerves 2 through 12 grossly intact. Good strength and range in the upper extremities, and good strength and range in the lower extremities except for the left foot, which was not fully tested due to recent surgery. He has diminished sensation below the knees to pinprick and medial joint line tenderness and crepitus in the right more than left knee. He has some arthritic changes in the hands, but normal sensation in the upper extremities. OVERALL IMPRESSION: 1. Deficits in mobility and activities of daily living. 2. Right transmetatarsal amputation with a history of foot ulcer and possible osteomyelitis, performed by Dr. Hernandez on March 04. 3. Status post cellulitis. 4. Diabetic peripheral neuropathy. 5. Right knee pain, possible underlying knee osteoarthritis. 6. Peripheral vascular disease. 7. Anemia, status post blood transfusion. 8. Prerenal azotemia. 9. History of peripheral vascular disease. PLAN AND SUGGESTIONS: 1. Continue physical therapy at the bedside. 2. Non-weight bearing left lower extremity. 3. Safety and fall precautions. 4. Out of bed to chair. 5. DVT prophylaxis. Continue subcutaneous heparin until more mobile. 6. Cardiac precautions. 7. Monitor bowels. 8. Monitor skin. 9. Wound care per Dr. Hernandez. 10. Home with home care versus inpatient rehabilitation if not safe, but he would strongly prefer to go home. Thank you for this referral. GILMAR LLOYD M.D. [place]/[id number]
[2017-03-11] MEDS ORDERED: INSULIN (NOVOLOG) ASPART 100 UNITS/ML 10ML VIAL ONE (11:36)
--- NOTE | 2017-03-11 14:24 | PN ---
Progress Note, Physician History of Present Illness: doing well no new issues afebrile - Current Medication List Current Medications: Active Medications Acetaminophen (Tylenol -) 650 mg PO Q6H PRN PRN Reason: FEVER OR PAIN Last Admin: 03/06/17 15:16 Dose: 650 mg Amlodipine Besylate (Norvasc -) 10 mg PO DAILY [facility] Last Admin: 03/11/17 09:59 Dose: 10 mg Brimonidine Tartrate (Alphagan P 0.1% -) 1 drop OU DAILY [facility] Last Admin: 03/11/17 10:02 Dose: 1 drop Collagenase (Santyl -) 1 applic TP DAILY [facility] Last Admin: 03/10/17 10:29 Dose: Not Given Dorzolamide HCl (Trusopt 2%) 1 drop OU BID [facility] Last Admin: 03/11/17 10:00 Dose: 1 drop Gabapentin (Neurontin -) 300 mg PO BID [facility] Last Admin: 03/11/17 09:59 Dose: 300 mg Heparin Sodium (Porcine) (Heparin -) 5,000 unit SQ BID [facility] Last Admin: 03/11/17 10:03 Dose: 5,000 unit Ertapenem 1 gm/ Sodium (Chloride) 50 mls @ 50 mls/hr IVPB DAILY [facility] PRN Reason: Protocol Last Admin: 03/10/17 10:58 Dose: 50 mls/hr Insulin Aspart (Novolog Vial Sliding Scale -) 1 vial SQ ACHS [facility] PRN Reason: Protocol Last Admin: 03/11/17 11:33 Dose: 4 units Insulin Aspart (Novolog Mix 70/30 Vial) 30 units SQ BIDI [facility] Last Admin: 03/11/17 08:53 Dose: 30 units Latanoprost (Xalatan 0.005% Eye Drops -) 1 drop OU HS [facility] Last Admin: 03/10/17 22:36 Dose: 1 drop Memantine (Namenda -) 10 mg PO BID [facility] Last Admin: 03/11/17 09:59 Dose: 10 mg Metoprolol Succinate (Toprol Xl -) 100 mg PO DAILY [facility] Last Admin: 03/11/17 09:59 Dose: 100 mg Mirtazapine (Remeron -) 15 mg PO HS [facility] Last Admin: 03/10/17 22:33 Dose: 15 mg Non-Formulary Medication (Non-Formulary Med) 1 each PO DAILY@0900 [facility] Last Admin: 03/11/17 10:02 Dose: 1 each Quetiapine Fumarate (Seroquel -) 50 mg PO HS [facility] Last Admin: 03/10/17 22:34 Dose: 50 mg Tamsulosin HCl (Flomax -) 0.4 mg PO DAILY@0830 [facility] Last Admin: 03/11/17 08:57 Dose: 0.4 mg Timolol Maleate (Timoptic 0.5%) 1 drop OU BID [facility] Last Admin: 03/11/17 10:04 Dose: 1 drop Valsartan (Diovan -) 160 mg PO BID [facility] Last Admin: 03/11/17 09:59 Dose: 160 mg - Objective Vital Signs: Vital Signs Temperature 98.1 F 03/11/17 10:00 Pulse Rate 65 03/11/17 10:00 Respiratory Rate 18 03/11/17 10:00 Blood Pressure 140/66 03/11/17 10:00 O2 Sat by Pulse Oximetry (%) 98 03/11/17 09:00 Constitutional: Yes: No Distress, Calm Cardiovascular: Yes: Regular Rate and Rhythm Respiratory: Yes: Regular, CTA Bilaterally Gastrointestinal: Yes: Normal Bowel Sounds, Soft Musculoskeletal: Yes: WNL Extremities: Yes: Other Wound/Incision: Yes: Dressing Dry and Intact Neurological: Yes: Alert, Oriented Psychiatric: Yes: Alert Labs: CBC, BMP 03/11/17 07:00 03/11/17 07:00 INR, PTT INR 1.15 (0.82-1.09) H 02/27/17 17:23 Assessment/Plan wound infection dm pvd leukocytosis plan continue ertapenam stop after todays dose wound care physio rest as per primary
[2017-03-11] MEDS: ERTAPENEM SODIUM 1 GM in SODIUM CHLORIDE 50 ML IVPB SCH (14:34)
[2017-03-11] MEDS: COLLAGENASE CLOSTRIDIUM HIST. 30 GRAMS TUBE TP SCH (16:00)
[2017-03-11] MEDS: QUEtiapine FUMARATE 50 MG TABLET PO SCH (22:10)
[2017-03-11] MEDS: MIRTAZAPINE 15 MG TABLET (FP) PO SCH (22:10)
[2017-03-11] MEDS: LATANOPROST 0.005% OPHTH SOLN 2.5ML BOTTLE OU SCH (22:11)
[2017-03-12] MEDS: INSULIN (NOVOLOG MIX 70/30) 100 UNITS/ML MDV SQ SCH (06:22)
[2017-03-12] MEDS: INSULIN SLIDING SCALE (NOVOLOG) 1 VIAL SQ SCH ×2 (06:22→11:45)
[2017-03-12] MEDS: amLODIPine BESYLATE 10 MG TABLET (FP) PO SCH (09:43)
[2017-03-12] MEDS: VALSARTAN 160 MG TABLET (UD) PO SCH (09:43)
[2017-03-12] MEDS: GABAPENTIN 300 MG CAPSULE (FP) PO SCH (09:43)
[2017-03-12] MEDS: TAMSULOSIN HCL 0.4 MG CAP.ER.24H (FP) PO SCH (09:43)
[2017-03-12] MEDS: HEPARIN NA (PORCINE) 5,000 UNITS/ML 1ML VIAL SQ SCH (09:44)
[2017-03-12] MEDS: METOPROLOL SUCCINATE 100 MG TAB.SR.24H (FP) PO SCH (09:44)
[2017-03-12] MEDS: MEMANTINE HCL 10 MG TABLET (FP) PO SCH (09:44)
[2017-03-12] MEDS ORDERED: PT OWN MED DRAWER 7, Y5N ONE (09:48)
[2017-03-12] MEDS: NON-FORMULARY MED PO SCH (09:49)
[2017-03-12] MEDS: DORZOLAMIDE 2% HCL OPHTHALMIC SOLUTION 10 ML BOTTLE OU SCH (09:50)
[2017-03-12] MEDS: BRIMONIDINE TARTRATE 0.1% OPHTHALMIC 5 ML BOTTLE OU SCH (09:51)
[2017-03-12] MEDS: TIMOLOL 0.5% OPHTHALMIC SOL 5 ML BOTTLE OU SCH (09:51)
[2017-03-12] MEDS ORDERED: INSULIN (NOVOLOG) ASPART 100 UNITS/ML 10ML VIAL ONE (11:44)
[2017-03-12] MEDS: ERTAPENEM SODIUM 1 GM in SODIUM CHLORIDE 50 ML IVPB SCH (12:48)
[2017-03-12] MEDS: COLLAGENASE CLOSTRIDIUM HIST. 30 GRAMS TUBE TP SCH (14:37)
--- NOTE | 2017-03-12 14:47 | DS ---
Physical Examination Vital Signs: Vital Signs Temperature 97.9 F 03/12/17 10:00 Pulse Rate 73 03/12/17 10:00 Respiratory Rate 18 03/12/17 10:00 Blood Pressure 118/68 03/12/17 10:00 O2 Sat by Pulse Oximetry (%) 98 03/11/17 21:00 Findings/Remarks: S/P transmetatarsal amputation Lt foot Diabetic and PVD Constitutional: Yes: No Distress Eyes: Yes: WNL HENT: Yes: WNL Neck: Yes: WNL Cardiovascular: Yes: WNL Respiratory: Yes: WNL Gastrointestinal: Yes: WNL ...Rectal Exam: Yes: WNL, Deferred Renal/: Yes: WNL Extremities: Yes: Amputation Edema: No Peripheral Pulses WNL: Yes Wound/Incision: Yes: Clean/Dry Neurological: Yes: Alert ...Motor Strength: WNL Labs: CBC, BMP 03/11/17 07:00 03/11/17 07:00 Discharge Summary Reason For Visit: CELLULITIS IN DIABETIC FOOT Current Active Problems Diabetes mellitus (Acute) Fever (Acute) HTN (hypertension) (Acute) PVD (peripheral vascular disease) (Acute) T2DM (type 2 diabetes mellitus) (Acute) Wound infection (Acute) - Instructions Referrals: Darron Presley MD [Primary Care Provider] - - Home Medications Comprehensive Discharge Medication List: Ambulatory Orders Amlodipine Besylate [Norvasc -] 10 mg PO DAILY 01/12/17 Donepezil HCl 23 mg PO DAILY 01/12/17 Gabapentin [Neurontin -] 300 mg PO BID 01/12/17 Insulin Lispro Protamin/Lispro [Humalog Mix 75-25 Kwikpen] 27 unit SQ BIDAC 11/29 Memantine HCl [Namenda -] 10 mg PO BID 01/12/17 Metformin HCl 500 mg PO BIDAC 01/12/17 Metoprolol Succinate [Toprol Xl] 100 mg PO DAILY 01/12/17 Mirtazapine [Remeron -] 15 mg PO HS 01/12/17 Quetiapine Fumarate [Seroquel -] 50 mg PO HS 01/12/17 Silver Sulfadiazine 1% Top Cr [Silvadene -] 1 applic TP DAILY 01/12/17 Tamsulosin HCl [Flomax] 0.4 mg PO DAILY 01/12/17 Valsartan [Diovan] 160 mg PO BID 01/12/17 Bimatoprost [Lumigan] 1 drop OU HS 01/14/17 Brimonidine Tartrate [Alphagan P 0.1% -] 1 drop OU BID 01/14/17 Dorzolamide HCl/Timolol Maleat [Cosopt Eye Drops] 1 drop OU BID 01/14/17 Collagenase Clostridium Hist. [Santyl] 1 applic TP DAILY #90 oint...g. 02/21/17
--- NOTE | 2017-03-12 15:30 | PN ---
Progress Note, Physician History of Present Illness: doing well going to rehab today continues to be afebrile no complaints dressing slightly wet - Current Medication List Current Medications: Active Medications Acetaminophen (Tylenol -) 650 mg PO Q6H PRN PRN Reason: FEVER OR PAIN Last Admin: 03/06/17 15:16 Dose: 650 mg Amlodipine Besylate (Norvasc -) 10 mg PO DAILY [facility] Last Admin: 03/12/17 09:43 Dose: 10 mg Bacitracin (Bacitracin -) 1 applic TP DAILY [facility] Brimonidine Tartrate (Alphagan P 0.1% -) 1 drop OU DAILY [facility] Last Admin: 03/12/17 09:51 Dose: 1 drop Dorzolamide HCl (Trusopt 2%) 1 drop OU BID [facility] Last Admin: 03/12/17 09:50 Dose: 1 drop Gabapentin (Neurontin -) 300 mg PO BID [facility] Last Admin: 03/12/17 09:43 Dose: 300 mg Heparin Sodium (Porcine) (Heparin -) 5,000 unit SQ BID [facility] Last Admin: 03/12/17 09:44 Dose: 5,000 unit Insulin Aspart (Novolog Vial Sliding Scale -) 1 vial SQ [facility] PRN Reason: Protocol Last Admin: 03/12/17 11:45 Dose: 4 units Insulin Aspart (Novolog Mix 70/30 Vial) 30 units SQ BIDI [facility] Last Admin: 03/12/17 06:22 Dose: 30 units Latanoprost (Xalatan 0.005% Eye Drops -) 1 drop OU [facility] Last Admin: 03/11/17 22:11 Dose: 1 drop Memantine (Namenda -) 10 mg PO BID [facility] Last Admin: 03/12/17 09:44 Dose: 10 mg Metoprolol Succinate (Toprol Xl -) 100 mg PO DAILY [facility] Last Admin: 03/12/17 09:44 Dose: 100 mg Mirtazapine (Remeron -) 15 mg PO [facility] Last Admin: 03/11/17 22:10 Dose: 15 mg Non-Formulary Medication (Non-Formulary Med) 1 each PO DAILY@0900 [facility] Last Admin: 03/12/17 09:49 Dose: 1 each Quetiapine Fumarate (Seroquel -) 50 mg PO [facility] Last Admin: 03/11/17 22:10 Dose: 50 mg Tamsulosin HCl (Flomax -) 0.4 mg PO DAILY@0830 [facility] Last Admin: 03/12/17 09:43 Dose: 0.4 mg Timolol Maleate (Timoptic 0.5%) 1 drop OU BID [facility] Last Admin: 03/12/17 09:51 Dose: 1 drop Valsartan (Diovan -) 160 mg PO BID [facility] Last Admin: 03/12/17 09:43 Dose: 160 mg - Objective Vital Signs: Vital Signs Temperature 97.9 F 03/12/17 10:00 Pulse Rate 73 03/12/17 10:00 Respiratory Rate 18 03/12/17 10:00 Blood Pressure 118/68 03/12/17 10:00 O2 Sat by Pulse Oximetry (%) 98 03/11/17 21:00 Constitutional: Yes: No Distress, Calm Cardiovascular: Yes: Regular Rate and Rhythm Respiratory: Yes: Regular, CTA Bilaterally Gastrointestinal: Yes: Normal Bowel Sounds, Soft Musculoskeletal: Yes: WNL Extremities: Yes: Other Wound/Incision: Yes: Draining, Other Neurological: Yes: Alert, Oriented Psychiatric: Yes: Alert, Oriented Labs: CBC, BMP 03/11/17 07:00 03/11/17 07:00 INR, PTT INR 1.15 (0.82-1.09) H 02/27/17 17:23 Assessment/Plan wound infection dm pvd leukocytosis plan continue wound care will need physio rest as per primary team
[2017-03-12 16:18] VITALS: BP 126/68; PULSE 65; TEMP 98.2
[2017-03-13] MEDS ORDERED: BACITRACIN 30 GM TUBE TOPICAL OINTMENT TP SCH (10:00)
== END 2017-03-12 16:38 | disposition home or self-care (01) | DRG 240 ==
LOC: JER 14:19 → JERBED 19:10 → J5S 02-28 00:47
PROVIDERS: ADMIT Internal Medicine; ATTEND Internal Medicine
PROC: 0KBW0ZZ Excision of Left Foot Muscle, Open Approach (ICD-10-PCS; principal; 2017-02-28 18:00)
PROC: 0Y6N0Z9 Detachment at Left Foot, Partial 1st Ray, Open Approach (ICD-10-PCS; 2017-03-04)
PROC: 0Y6N0ZB Detachment at Left Foot, Partial 2nd Ray, Open Approach (ICD-10-PCS; 2017-03-04)
PROC: 0Y6N0ZC Detachment at Left Foot, Partial 3rd Ray, Open Approach (ICD-10-PCS; 2017-03-04)
PROC: 0Y6N0ZD Detachment at Left Foot, Partial 4th Ray, Open Approach (ICD-10-PCS; 2017-03-04)
PROC: 0Y6N0ZF Detachment at Left Foot, Partial 5th Ray, Open Approach (ICD-10-PCS; 2017-03-04)
PROC: 0KBW0ZZ Excision of Left Foot Muscle, Open Approach (ICD-10-PCS; 2017-03-04)
DX: E11.52 Type 2 diabetes mellitus with diabetic peripheral angiopathy with gangrene (principal); L03.116 Cellulitis of left lower limb; I10 Essential (primary) hypertension; E78.5 Hyperlipidemia, unspecified; G30.9 Alzheimer's disease, unspecified; F02.80 Dementia in other diseases classified elsewhere, unspecified severity, without behavioral disturbance, psychotic disturbance, mood disturbance, and anxiety; N40.0 Benign prostatic hyperplasia without lower urinary tract symptoms; R50.82 Postprocedural fever; F41.8 Other specified anxiety disorders; Z89.422 Acquired absence of other left toe(s)
CPT/HCPCS: 36415; 71010-TC; 73630-TC-LT; 80053; 81003; 85025; 85027; 85610; 85651; 86140; 86850; 86900; 86901; 87040; 87070; 87186; 87205; 88305-TC; 88311-TC; 93005; 93010; 93971-TC; 94010; 94760; 97116-GP; 97161; 99284-25; G0277; J1644

== ENCOUNTER 2018-09-18 09:25 | Inpatient (IN) | payer OTHER ==
--- NOTE | 2018-09-18 11:37 | PDOC ---
History of Present Illness - General History Source: Patient, Family Exam Limitations: No Limitations - History of Present Illness Initial Comments: 09/18/18 12:20 The patient is a 83 year old male, with a significant past medical history of osteomyelitis (newly diagnosed), diabetes, hypertension, hyperlipidemia, alzheimers, BPH, and depression/anxiety, who presents to the emergency department with, right 3rd toe wound. As per patients family, he had a blister to the right third toe 2 weeks ago which has since progressed. He went to his PCP for his symptoms and was prescribed Augmentin, without relief prompting his visit to wound care last week. At wound care, he had a biopsy, ultrasound, and MRI of the area. He notes he was advised by wound care and ID to report to the ED for IV antibiotics and admission. He denies any recent fevers, chills, headache or dizziness. He denies any recent nausea, vomit, diarrhea or constipation. He denies any recent chest pain or shortness of breath. He denies any recent dysuria, frequency, urgency or hematuria. Allergies: NKDA Surgical History: Amputation to the Left 2nd-4th toes Social History: Non Smoker. No ETOH or drug use. Primary Care Physician: Dr. Presley Surgeon/Wound Care: Dr. Hernandez ID: Dr. Cristobal Spool Winder: Dr. Chaney <Adriano Quintana - Last Filed: 09/18/18 12:20> <Yuniel Horton - Last Filed: 09/18/18 14:09> - General Chief Complaint: Wound Stated Complaint: PCP SENT FOR ADMIN Time Seen by Provider: 09/18/18 10:29 Past History <Adriano Quintana - Last Filed: 09/18/18 12:20> - Past Medical History Anemia: No Asthma: No Cancer: No Cardiac Disorders: No CVA: No COPD: No CHF: No Dementia: Yes (early alzheimers) Diabetes: Yes GI Disorders: No Disorders: Yes (BPH) HTN: Yes Hypercholesterolemia: Yes Psychiatric Problems: Yes (depression/anxiety) Seizures: No Thyroid Disease: No Other medical history: glaucoma - Surgical History Abdominal Surgery: No Appendectomy: No Cardiac Surgery: No Cholecystectomy: No Lung Surgery: No Neurologic Surgery: No Orthopedic Surgery: Yes (S/P LEFT FT 3RD DIGIT AMPUTATION 01/22/17) - Immunization History Immunization Up to Date: Yes - Suicide/Smoking/Psychosocial Hx Smoking History: Never smoked Have you smoked in the past 12 months: No Hx Alcohol Use: No Drug/Substance Use Hx: No Substance Use Type: None Hx Substance Use Treatment: No <Yuniel Horton - Last Filed: 09/18/18 14:09> - Past Medical History Allergies/Adverse Reactions: Allergies Allergy/AdvReac Type Severity Reaction Status Date / Time No Known Allergies Allergy Verified 09/18/18 10:05 Home Medications: Ambulatory Orders Amlodipine Besylate [Norvasc -] 10 mg PO DAILY 01/12/17 Donepezil HCl 23 mg PO DAILY 01/12/17 Gabapentin [Neurontin -] 300 mg PO BID 01/12/17 Insulin Lispro Protamin/Lispro [Humalog Mix 75-25 Kwikpen] 27 unit SQ BIDAC 11/29 Memantine HCl [Namenda -] 10 mg PO BID 01/12/17 Metoprolol Succinate [Toprol Xl] 100 mg PO DAILY 01/12/17 Mirtazapine [Remeron -] 15 mg PO HS 01/12/17 Tamsulosin HCl [Flomax] 0.4 mg PO DAILY 01/12/17 metFORMIN HCL [Metformin HCl] 500 mg PO BIDAC 01/12/17 Bimatoprost [Lumigan] 1 drop OU HS 01/14/17 Brimonidine Tartrate [Alphagan P 0.1% -] 1 drop OU BID 01/14/17 Dorzolamide HCl/Timolol Maleat [Cosopt Eye Drops] 1 drop OU BID 01/14/17 Becaplermin [Regranex] 15 gm TP DAILY #1 gel..gram. 07/04/17 Donepezil HCl [Aricept] 10 mg PO DAILY 09/18/18 Losartan Potassium 100 mg PO DAILY 09/18/18 Memantine HCl [Namenda -] 5 mg PO BID 09/18/18 Review of Systems - Review of Systems Able to Perform ROS?: Yes Comments:: 09/18/18 12:21 "CONSTITUTIONAL: No reported: Fever, Chills, Diaphoresis, Generalized Weakness, Malaise, Loss of Appetite HEENT: No reported: Rhinorrhea, Nasal Congestion, Throat Pain, Throat Swelling, Difficulty Swallowing, Mouth Swelling, Ear Pain, Eye Pain, Visual Changes CARDIOVASCULAR: No reported: Chest Pain, Syncope, Palpitations, Irregular Heart Rate, Lightheadedness, Peripheral Edema RESPIRATORY: No reported: Cough, Shortness of Breath, SOB with Exertion, Orthopnea, Wheezing , Stridor, Hemoptysis GASTROINTESTINAL: No reported: Abdominal pain, Abdominal Distension, Nausea, Vomiting, Diarrhea, Constipation, Melena, Hematochezia GENITOURINARY: No reported: Dysuria, Frequency, Urgency, Hesitancy, Flank Pain, Genital Pain MUSCULOSKELETAL: No reported: Myalgia, Arthralgia, Joint Swelling, Back pain, Neck Pain +SKIN: Present: Right 3rd toe wound. HEMEATOLOGIC/IMMUNOLOGIC: No reported: Easy Bleeding, Easy Bruising, Lymphadenopathy, Frequent infections ENDOCRINE: No reported: Unexplained Weight Gain, Unexplained Weight Loss, Heat Intolerance , Cold Intolerance NEUROLOGIC: No reported: Headache, Focal Weakness, Paresthesias, Vertigo, Lightheadedness, Unsteady Gait, Seizure, Mental Status Changes, Incontinence PSYCHIATRIC: No reported: Anxiety, Depression " All Other Systems: Reviewed and Negative <Adriano Quintana - Last Filed: 09/18/18 12:20> *Physical Exam - Vital Signs Last Vital Signs Temp Pulse Resp BP Pulse Ox 98.4 F 60 18 125/57 L 100 09/18/18 10:05 09/18/18 10:05 09/18/18 10:05 09/18/18 10:05 09/18/18 10:05 <Adriano Quintana - Last Filed: 09/18/18 12:20> - Vital Signs Last Vital Signs Temp Pulse Resp BP Pulse Ox 98.4 F 60 18 125/57 L 100 09/18/18 10:05 09/18/18 10:05 09/18/18 10:05 09/18/18 10:05 09/18/18 10:05 - Physical Exam Comments: 09/18/18 12:59 GENERAL: The patient is awake, alert, and fully oriented, Nontoxic - in no acute distress. HEAD: Normocephalic, atraumatic. EYES: extraocular movements intact, sclera anicteric, conjunctiva clear. ENT: Normal voice, Moist mucous membranes. NECK: Normal range of motion, supple LUNGS: Breath sounds equal, clear to auscultation bilaterally. No wheezes, no rhonchi, no rales. HEART: Regular rate and rhythm, normal S1 and S2 without murmur, rub or gallop. ABDOMEN: Soft, nontender, No guarding, no rebound. No CVA tenderness EXTREMITIES: Normal range of motion, no edema. s/p amputation of L toes, + unstablagel ulcer on dorsum of PIP without erythmea, induration, fluctuance, discharge, deminished sensation on foot b/l NEUROLOGICAL: No facial assymetry, Normal speech, PSYCH: Normal mood, normal affect. SKIN: Warm, Dry, normal turgor, <Yuniel Horton - Last Filed: 09/18/18 14:09> Moderate Sedation - Procedure Monitoring Vital Signs: Procedure Monitoring Vital Signs Temperature 98.4 F 09/18/18 10:05 Pulse Rate 60 09/18/18 10:05 Respiratory Rate 18 09/18/18 10:05 Blood Pressure 125/57 L 09/18/18 10:05 O2 Sat by Pulse Oximetry (%) 100 09/18/18 10:05 <Adriano Quintana - Last Filed: 09/18/18 12:20> - Procedure Monitoring Vital Signs: Procedure Monitoring Vital Signs Temperature 98.4 F 09/18/18 10:05 Pulse Rate 60 09/18/18 10:05 Respiratory Rate 18 09/18/18 10:05 Blood Pressure 125/57 L 09/18/18 10:05 O2 Sat by Pulse Oximetry (%) 100 09/18/18 10:05 <Yuniel Horton - Last Filed: 09/18/18 14:09> Heart Score/ECG Review - ECG Impressions Comment:: 09/18/18 13:03 Twelve-lead EKG was performed and reviewed by me. There is normal sinus rhythm with a rate of 53 The axis is normal. First degree AV block There are no ST or T wave abnormalities. <Yuniel Horton - Last Filed: 09/18/18 14:09> ED Treatment Course - LABORATORY CBC & Chemistry Diagram: 09/18/18 12:15 09/18/18 12:15 <Yuniel Horton - Last Filed: 09/18/18 14:09> Medical Decision Making - Medical Decision Making 09/18/18 11:36 83y M hx of IDDM, HL, alzheimers, recent dx of osteomyelitis, had a wound on went to PMD started on augmentin and fu with wound care, had a biopsy , MRI c/w osteomyelitis. 09/18/18 13:42 The patient's lab work was reviewed it is unremarkable will start the patient on Zosyn. Will admit the patient for further management 09/18/18 14:08 Case was discussed with Dr. Tania allan with [facility] discussed in detail with admitting physician including history, physical exam and ancillary studies. Admitting physician has assumed care for the patient, will follow all pending diagnostics and will complete the evaluation and treatment. <Yuniel Horton - Last Filed: 09/18/18 14:09> *DC/Admit/Observation/Transfer - Attestations Scribe Attestion: 09/18/18 12:22 Documentation prepared by Adriano Quintana, acting as medical assistant instructor for Yuniel Horton MD. <Adriano Quintana - Last Filed: 09/18/18 12:20> - Discharge Dispostion Decision to Admit order: Yes <Yuniel Horton - Last Filed: 09/18/18 14:09> Diagnosis at time of Disposition: Osteomyelitis Qualifiers: Osteomyelitis type: unspecified type Osteomyelitis location: foot Laterality: left Qualified Code(s): M86.9 - Osteomyelitis, unspecified - Discharge Dispostion Condition at time of disposition: Stable - Referrals Referrals: Darron Presley MD [Primary Care Provider] - - Patient Instructions - Post Discharge Activity
[2018-09-18 12:37] LABS: BASO % 0.6 % (0-2.0); EOS % 1.5 % (0-4.5); HEMATOCRIT 40.3 % (35.4-49); HEMOGLOBIN 12.7 GM/dL (11.7-16.9); LYMPH % 23.5 % (8-40); MCH 23.8 pg (25.7-33.7); MCHC 31.6 g/dl (32.0-35.9); MEAN CELL VOLUME 75.5 fl (80-96); MEAN PLT VOLUME 8.8 fl (7.5-11.1); NEUT % 65.4 % (42.8-82.8); PLATELET COUNT 227 K/MM3 (134-434); RBC 5.35 M/mm3 (4.00-5.60); RDW 16.7 % (11.9-15.9); WHITE BLOOD COUNT 8.2 K/mm3 (4.0-10.0)
[2018-09-18 12:48] LABS: INR 1.04 (0.83-1.09); PROTHROMBIN TIME (PATIENT) 12.3 SEC (9.7-13.0)
[2018-09-18 12:53] LABS: ALBUMIN 3.9 g/dl (3.4-5.0); ALK PHOS 142 U/L (45-117); ANION GAP 7 MMOL/L (8-16); BILIRUBIN,TOTAL 0.3 mg/dL (0.2-1); BLOOD UREA NITROGEN 22 mg/dL (7-18); CALCIUM 9.2 mg/dL (8.5-10.1); CHLORIDE 107 mmol/L (98-107); CO2 29 mmol/L (21-32); CREATININE 1.5 mg/dL (0.55-1.3); GLUCOSE,RANDOM 175 mg/dL (74-106); POTASSIUM 4.4 mmol/L (3.5-5.1); SGOT/AST 17 U/L (15-37); SGPT/ALT 24 U/L (13-61); SODIUM 143 mmol/L (136-145); TOT PROT 7.4 g/dl (6.4-8.2)
[2018-09-18] MEDS ORDERED: PIPERACILLIN/TAZOB 4.5 GM 4.5 GM in DEXTROSE 5%-WATER 100 ML IVPB ONE (13:41)
[2018-09-18] MEDS ORDERED: PIPERACILLIN/TAZOB 4.5 GM 4.5 GM/100 ML BAG IVPB ONE (13:48)
[2018-09-18] MEDS ORDERED: CLINDAMYCIN 900 MG PREMIX IVPB 900 MG/50 ML BAG IVPB ONE ×2 (13:54→14:00)
--- NOTE | 2018-09-18 14:30 | HP ---
Admitting History and Physical - Primary Care Physician PCP: Darron Presley - Admission Chief Complaint: Rt Foot Cellulitis History of Present Illness: 83 yrs old mna H/O T2DM, Diabtese Nephro and Neuropathy, PAD s/p Left foot Transtarsal amputation , HTN< High Cholestrol, Dementia, BPH CKD stgae 3-4 patient has Rt foot discharging sinus on dorsum of 2nd toe underwent out patient w/u MRI on 08/24 shows ? OM Rt 2nd toe proximal aand middle palanx, underwent Bone Biopsy on 09/11 that shows no OM but Culture grew Clostrodium perfengens patient recived PO abx but wound remaine active with discharge no fever chills or any systemic symptom admitted for IV abx patient denies any chest pain SOB or palpitation. History Source: Patient - Past Medical History WHOLESALE REPRESENTATIVE: Yes: Alzheimer's, Dementia, TIA Cardiovascular: Yes: HTN, Hyperlipdemia Endocrine: Yes: Bozena's Disease, Diabetes Mellitus - Smoking History Smoking history: Never smoked Have you smoked in the past 12 months: No - Alcohol/Substance Use Hx Alcohol Use: No Home Medications - Allergies Allergies/Adverse Reactions: Allergies Allergy/AdvReac Type Severity Reaction Status Date / Time No Known Allergies Allergy Verified 09/18/18 10:05 - Home Medications Home Medications: Ambulatory Orders Amlodipine Besylate [Norvasc -] 10 mg PO DAILY 01/12/17 Donepezil HCl 23 mg PO DAILY 01/12/17 Gabapentin [Neurontin -] 300 mg PO BID 01/12/17 Insulin Lispro Protamin/Lispro [Humalog Mix 75-25 Kwikpen] 27 unit SQ BIDAC 11/29 Memantine HCl [Namenda -] 10 mg PO BID 01/12/17 Metoprolol Succinate [Toprol Xl] 100 mg PO DAILY 01/12/17 Mirtazapine [Remeron -] 15 mg PO HS 01/12/17 Tamsulosin HCl [Flomax] 0.4 mg PO DAILY 01/12/17 metFORMIN HCL [Metformin HCl] 500 mg PO BIDAC 01/12/17 Bimatoprost [Lumigan] 1 drop OU HS 01/14/17 Brimonidine Tartrate [Alphagan P 0.1% -] 1 drop OU BID 01/14/17 Dorzolamide HCl/Timolol Maleat [Cosopt Eye Drops] 1 drop OU BID 01/14/17 Becaplermin [Regranex] 15 gm TP DAILY #1 gel..gram. 07/04/17 Donepezil HCl [Aricept] 10 mg PO DAILY 09/18/18 Losartan Potassium 100 mg PO DAILY 09/18/18 Memantine HCl [Namenda -] 5 mg PO BID 09/18/18 Family Disease History - Family Disease History Family History: Unremarkable Review of Systems - Review of Systems Constitutional: denies: Chills, Diaphoresis Eyes: denies: Blind Spots, Blurred Vision HENT: denies: Difficult Swallowing, Ear Discharge Neck: denies: Decreased ROM, Lumps, Pain on Movement, Stiffness Cardiovascular: denies: Chest Pain, Edema, Palpitations, Shortness of Breath Respiratory: denies: Cough, Exercise Intolerance, Hemoptysis, Orthopnea Gastrointestinal: denies: Abdominal Pain, Bloating, Constipation, Diarrhea Genitourinary: denies: Burning, Discharge, Dysuria, Flank Pain, Frequency Musculoskeletal: denies: Back Pain, Crepitus, Decreased ROM Integumentary: reports: Wound Neurological: reports: Numbness. denies: Change in LOC, Confusion Physical Examination Vital Signs: Vital Signs Temperature 97.8 F 09/18/18 14:09 Pulse Rate 58 L 09/18/18 14:09 Respiratory Rate 17 09/18/18 14:09 Blood Pressure 150/72 09/18/18 14:09 O2 Sat by Pulse Oximetry (%) 100 09/18/18 14:09 Elderly man comfortable not in distress HEENT: Mm moist, no anemia, PERRLA EOMI NECK: No JVd No Bruit CHEST: CTA B/L CVS: S1S2 R ABD: No distention non tender Bs + EXT: S/P transtarsal amputation of Left toes discharging exudate from Rt 2nd Toe WHOLESALE REPRESENTATIVE: AOX3 non focal Labs: CBC, BMP WBC 8.2 K/mm3 (4.0-10.0) 09/18/18 12:15 RBC 5.35 M/mm3 (4.00-5.60) 09/18/18 12:15 Hgb 12.7 GM/dL (11.7-16.9) 09/18/18 12:15 Hct 40.3 % (35.4-49) 09/18/18 12:15 MCV 75.5 fl (80-96) L 09/18/18 12:15 MCH 23.8 pg (25.7-33.7) L 09/18/18 12:15 MCHC 31.6 g/dl (32.0-35.9) L 09/18/18 12:15 RDW 16.7 % (11.9-15.9) H 09/18/18 12:15 Plt Count 227 K/MM3 (134-434) 09/18/18 12:15 MPV 8.8 fl (7.5-11.1) 09/18/18 12:15 Absolute Neuts (auto) 5.4 K/mm3 (1.5-8.0) 09/18/18 12:15 Neutrophils % 65.4 % (42.8-82.8) 09/18/18 12:15 Lymphocytes % 23.5 % (8-40) D 09/18/18 12:15 Monocytes % 9.0 % (3.8-10.2) 09/18/18 12:15 Eosinophils % 1.5 % (0-4.5) 09/18/18 12:15 Basophils % 0.6 % (0-2.0) 09/18/18 12:15 Nucleated RBC % 0 % (0-0) 09/18/18 12:15 Sodium 143 mmol/L (136-145) 09/18/18 12:15 Potassium 4.4 mmol/L (3.5-5.1) 09/18/18 12:15 Chloride 107 mmol/L (98-107) 09/18/18 12:15 Carbon Dioxide 29 mmol/L (21-32) 09/18/18 12:15 Anion Gap 7 MMOL/L (8-16) L 09/18/18 12:15 BUN 22 mg/dL (7-18) H 09/18/18 12:15 Creatinine 1.5 mg/dL (0.55-1.3) H 09/18/18 12:15 Creat Clearance w eGFR 44.81 (>60) 09/18/18 12:15 Random Glucose 175 mg/dL (74-106) H 09/18/18 12:15 Calcium 9.2 mg/dL (8.5-10.1) 09/18/18 12:15 Total Bilirubin 0.3 mg/dL (0.2-1) 09/18/18 12:15 AST 17 U/L (15-37) 09/18/18 12:15 ALT 24 U/L (13-61) 09/18/18 12:15 Alkaline Phosphatase 142 U/L (45-117) H 09/18/18 12:15 Total Protein 7.4 g/dl (6.4-8.2) 09/18/18 12:15 Albumin 3.9 g/dl (3.4-5.0) 09/18/18 12:15 Imaging - Results MRI: Report Reviewed (Rt Foot 08/24/2018 OM Rt 2nd Toe) Problem List - Problems (1) Cellulitis in diabetic foot Assessment/Plan: Grew Clostrodium not responding to Po abx evaluted by ID on Zosyn and clindamycine as per ID f/u CRP and ESR Code(s): E13.628 - OTH DIABETES MELLITUS WITH OTHER SKIN COMPLICATIONS; L03.119 - CELLULITIS OF UNSPECIFIED PART OF LIMB (2) HTN (hypertension) Assessment/Plan: Cont Home meds Code(s): I10 - ESSENTIAL (PRIMARY) HYPERTENSION Qualifiers: Hypertension type: essential hypertension Qualified Code(s): I10 - Essential (primary) hypertension (3) T2DM (type 2 diabetes mellitus) Assessment/Plan: Cont home dose of Lnatus Hold Metformin correction dose insulin Code(s): E11.9 - TYPE 2 DIABETES MELLITUS WITHOUT COMPLICATIONS Qualifiers: Diabetes mellitus complication status: with circulatory complication Diabetes mellitus complication detail: with peripheral angiopathy with gangrene (4) Acute kidney injury superimposed on CKD Assessment/Plan: at base line GFR 60 present with risoisng creat and GFR 44 IV hydration hold losartan F/U BMP Bladder scan Code(s): N17.9 - ACUTE KIDNEY FAILURE, UNSPECIFIED; N18.9 - CHRONIC KIDNEY DISEASE, UNSPECIFIED (5) PVD (peripheral vascular disease) Assessment/Plan: S/p RT Foot tras trasal amputation Code(s): I73.9 - PERIPHERAL VASCULAR DISEASE, UNSPECIFIED (6) Dementia Assessment/Plan: Cont home meds Code(s): F03.90 - UNSPECIFIED DEMENTIA WITHOUT BEHAVIORAL DISTURBANCE
--- NOTE | 2018-09-18 15:11 | CON.ID ---
Consult Consult Specialty:: infectious diseases Referred by:: dr mann Reason for Consultation:: osteo and non healing wound of the foot - History of Present Illness Chief Complaint: non healing wound of the foot History of Present Illness: 83 yrs old mna H/O T2DM, Diabetes and Neuropathy, PAD s/p Left foot Transtarsal amputation , HTN, High Cholestrol, Dementia, BPH CKD known to me from previous admission patient with non healing wound of the rt foot 2nd toe and draining sinus from the dorsum with mri showing osteo and bone cx showing cl perfrenges growing patient was called to the hospital to receive iv abx after the positive bone cx - History Source History Provided By: Patient Limitations to Obtaining History: No Limitations - Past Medical History MANAGER COMBINATION: Yes: Alzheimer's, Dementia, TIA Cardio/Vascular: Yes: HTN, Hyperlipdemia Endocrine: Yes: Bozena's Disease, Diabetes Mellitus - Alcohol/Substance Use Hx Alcohol Use: No - Smoking History Smoking history: Never smoked Have you smoked in the past 12 months: No Home Medications - Allergies Allergies/Adverse Reactions: Allergies Allergy/AdvReac Type Severity Reaction Status Date / Time No Known Allergies Allergy Verified 09/18/18 10:05 - Home Medications Home Medications: Ambulatory Orders Amlodipine Besylate [Norvasc -] 10 mg PO DAILY 01/12/17 Donepezil HCl 23 mg PO DAILY 01/12/17 Gabapentin [Neurontin -] 300 mg PO BID 01/12/17 Insulin Lispro Protamin/Lispro [Humalog Mix 75-25 Kwikpen] 27 unit SQ BIDAC 11/29 Memantine HCl [Namenda -] 10 mg PO BID 01/12/17 Metoprolol Succinate [Toprol Xl] 100 mg PO DAILY 01/12/17 Mirtazapine [Remeron -] 15 mg PO HS 01/12/17 Tamsulosin HCl [Flomax] 0.4 mg PO DAILY 01/12/17 metFORMIN HCL [Metformin HCl] 500 mg PO BIDAC 01/12/17 Bimatoprost [Lumigan] 1 drop OU HS 01/14/17 Brimonidine Tartrate [Alphagan P 0.1% -] 1 drop OU BID 01/14/17 Dorzolamide HCl/Timolol Maleat [Cosopt Eye Drops] 1 drop OU BID 01/14/17 Becaplermin [Regranex] 15 gm TP DAILY #1 gel..gram. 07/04/17 Donepezil HCl [Aricept] 10 mg PO DAILY 09/18/18 Losartan Potassium 100 mg PO DAILY 09/18/18 Memantine HCl [Namenda -] 5 mg PO BID 09/18/18 Review of Systems - Review of Systems Constitutional: reports: No Symptoms Eyes: reports: No Symptoms HENT: reports: No Symptoms Neck: reports: No Symptoms Cardiovascular: reports: No Symptoms Respiratory: reports: No Symptoms Gastrointestinal: reports: No Symptoms Genitourinary: reports: No Symptoms Musculoskeletal: reports: Other Integumentary: reports: Change in Color, Erythema Neurological: reports: No Symptoms Endocrine: reports: No Symptoms Hematology/Lymphatic: reports: No Symptoms Psychiatric: reports: No Symptoms Physical Exam Vital Signs: Vital Signs Temperature 97.8 F 09/18/18 14:09 Pulse Rate 58 L 09/18/18 14:09 Respiratory Rate 17 09/18/18 14:09 Blood Pressure 150/72 09/18/18 14:09 O2 Sat by Pulse Oximetry (%) 100 09/18/18 14:09 Constitutional: Yes: Well Nourished, No Distress, Calm Eyes: Yes: Conjunctiva Clear HENT: Yes: Atraumatic, Normocephalic Neck: Yes: Supple, Trachea Midline Cardiovascular: Yes: Regular Rate and Rhythm Respiratory: Yes: Regular, CTA Bilaterally Gastrointestinal: Yes: Normal Bowel Sounds, Soft Musculoskeletal: Yes: WNL Extremities: Yes: Other Integumentary: Yes: Erythema, Other Wound/Incision: Yes: Other (non healing ulcer and sinus of the 2nd toe of the rt foot color changes) Neurological: Yes: Alert, Oriented Psychiatric: Yes: Alert, Oriented Labs: CBC, BMP 09/18/18 12:15 09/18/18 12:15 Imaging - Results Chest X-ray: Report Reviewed, Image Reviewed MRI: Report Reviewed, Image Reviewed Assessment/Plan Problem List - Problems (1) Cellulitis in diabetic foot Code(s): E13.628 - OTH DIABETES MELLITUS WITH OTHER SKIN COMPLICATIONS; L03.119 - CELLULITIS OF UNSPECIFIED PART OF LIMB (2) HTN (hypertension) Code(s): I10 - ESSENTIAL (PRIMARY) HYPERTENSION Qualifiers: Hypertension type: essential hypertension Qualified Code(s): I10 - Essential (primary) hypertension (3) T2DM (type 2 diabetes mellitus) Code(s): E11.9 - TYPE 2 DIABETES MELLITUS WITHOUT COMPLICATIONS Qualifiers: Diabetes mellitus complication status: with circulatory complication Diabetes mellitus complication detail: with peripheral angiopathy with gangrene (4) Acute kidney injury superimposed on CKD Code(s): N17.9 - ACUTE KIDNEY FAILURE, UNSPECIFIED; N18.9 - CHRONIC KIDNEY DISEASE, UNSPECIFIED (5) PVD (peripheral vascular disease) Code(s): I73.9 - PERIPHERAL VASCULAR DISEASE, UNSPECIFIED (6) Dementia Code(s): F03.90 - UNSPECIFIED DEMENTIA WITHOUT BEHAVIORAL DISTURBANCE 7 osteo of the rt foot i am worried that the patient might need amputation of the toe and i ahve spoken to the family about this plan at the moment will start iv abx esr crp wound care rest as per the team
--- NOTE | 2018-09-18 15:53 | EKG ---
Test Reason : Blood Pressure : / mmHG Vent. Rate : 053 BPM Atrial Rate : 053 BPM P-R Int : 220 ms QRS Dur : 086 ms QT Int : 442 ms P-R-T Axes : -09 -12 043 degrees QTc Int : 414 ms SINUS BRADYCARDIA WITH 1ST DEGREE A-V BLOCK SEPTAL INFARCT (CITED ON OR BEFORE 29-JAN-2017) ABNORMAL ECG WHEN COMPARED WITH ECG OF 27-FEB-2017 17:49, [place] INTERVAL HAS INCREASED VENT. RATE HAS DECREASED BY 28 BPM Confirmed by MINDY CHAPMAN, SANDEEP ([id number]) on 09/18/2018 3:53:07 PM Referred By: Darron Presley Confirmed By:SANDEEP GUILLEN MD
[2018-09-18] MEDS ORDERED: PATIENT'S OWN MEDICATION (NON-FORMULARY) (Insulin Lispro Protamin/Lispro [Humalog Mix 75-2 SQ SCH (16:30)
[2018-09-18] MEDS: SODIUM CHLORIDE 1,000 ML IV SCH ×2 (16:51→18:08)
[2018-09-18] MEDS ORDERED: INSULIN (NOVOLOG MIX 70/30) 100 UNITS/ML MDV SQ ONE (17:03)
[2018-09-18] MEDS ORDERED: INSULIN (NOVOLOG) ASPART 100 UNITS/ML 10ML VIAL ONE (17:05)
[2018-09-18] MEDS: INSULIN (NOVOLOG MIX 70/30) 100 UNITS/ML MDV SQ SCH (17:14)
[2018-09-18] MEDS: INSULIN SLIDING SCALE (NOVOLOG) 1 VIAL SQ SCH (17:14)
[2018-09-18] MEDS: CLINDAMYCIN 600MG PREMIX IVPB 600 MG/50 ML BAG IVPB SCH (18:09)
[2018-09-18 19:08] VITALS: BMI 25.5
[2018-09-18] MEDS ORDERED: DEXTROSE 5%-WATER - 50 ML IVPB ONE (19:51)
[2018-09-18] MEDS ORDERED: PIPERACILLIN/TAZOBACTAM 3.375 GM VIAL IVPB ONE (19:51)
[2018-09-18] MEDS: PIPERACILLIN/TAZOB 3.375 GM 3.375 GM in DEXTROSE 5%-WATER - 50 ML IVPB SCH (20:36)
[2018-09-18] MEDS ORDERED: PT OWN MED DRAWER 7, Y5N ONE (20:53)
[2018-09-18] MEDS ORDERED: PATIENT'S OWN MEDICATION (NON-FORMULARY) (Bimatoprost [Lumigan] 1 DROP) OU SCH (22:00)
[2018-09-18] MEDS ORDERED: PATIENT'S OWN MEDICATION (NON-FORMULARY) (Dorzolamide Hcl/Timolol Maleat [Cosopt Eye Drops OU SCH (22:00)
[2018-09-18] MEDS: BRIMONIDINE TARTRATE 0.1% OPHTHALMIC 5 ML BOTTLE OU SCH (22:22)
[2018-09-18] MEDS: MEMANTINE HCL 5 MG TABLET (UD) PO SCH (22:22)
[2018-09-18] MEDS: GABAPENTIN 300 MG CAPSULE (FP) PO SCH (22:22)
[2018-09-18] MEDS: MIRTAZAPINE 15 MG TABLET (FP) PO SCH (22:22)
[2018-09-18] MEDS: LATANOPROST 0.005% OPHTH SOLN 2.5ML BOTTLE OU SCH (22:23)
[2018-09-18] MEDS: DORZOLAMIDE 2% HCL OPHTHALMIC SOLUTION 10 ML BOTTLE OU SCH (22:37)
[2018-09-18] MEDS: TIMOLOL 0.5% OPHTHALMIC SOL 5 ML BOTTLE OU SCH (22:38)
[2018-09-19] MEDS ORDERED: PIPERACILLIN/TAZOBACTAM 3.375 GM VIAL IVPB ONE ×4 (01:25→21:14)
[2018-09-19] MEDS ORDERED: DEXTROSE 5%-WATER - 50 ML IVPB ONE ×4 (01:25→21:15)
[2018-09-19] MEDS: CLINDAMYCIN 600MG PREMIX IVPB 600 MG/50 ML BAG IVPB SCH ×3 (01:51→17:36)
[2018-09-19] MEDS: PIPERACILLIN/TAZOB 3.375 GM 3.375 GM in DEXTROSE 5%-WATER - 50 ML IVPB SCH ×3 (01:51→17:36)
[2018-09-19] MEDS: INSULIN SLIDING SCALE (NOVOLOG) 1 VIAL SQ SCH ×3 (06:03→16:37)
[2018-09-19] MEDS: INSULIN (NOVOLOG MIX 70/30) 100 UNITS/ML MDV SQ SCH ×2 (06:38→16:36)
[2018-09-19] MEDS ORDERED: PT OWN MED DRAWER 7, Y5N ONE ×2 (06:59→21:33)
[2018-09-19 07:01] LABS: BASO % 0.4 % (0-2.0); EOS % 2.5 % (0-4.5); HEMATOCRIT 39.4 % (35.4-49); HEMOGLOBIN 12.7 GM/dL (11.7-16.9); LYMPH % 20.3 % (8-40); MCH 24.3 pg (25.7-33.7); MCHC 32.2 g/dl (32.0-35.9); MEAN CELL VOLUME 75.4 fl (80-96); MEAN PLT VOLUME 8.9 fl (7.5-11.1); MONO % 12.1 % (3.8-10.2); NEUT % 64.7 % (42.8-82.8); PLATELET COUNT 226 K/MM3 (134-434); RBC 5.23 M/mm3 (4.00-5.60); RDW 16.6 % (11.9-15.9); WHITE BLOOD COUNT 8.3 K/mm3 (4.0-10.0)
[2018-09-19] MEDS ORDERED: INSULIN (NOVOLOG MIX 70/30) 100 UNITS/ML MDV SQ ONE (07:01)
[2018-09-19 07:26] LABS: ANION GAP 9 MMOL/L (8-16); BLOOD UREA NITROGEN 27 mg/dL (7-18); CALCIUM 8.6 mg/dL (8.5-10.1); CHLORIDE 109 mmol/L (98-107); CO2 28 mmol/L (21-32); CREATININE 1.9 mg/dL (0.55-1.3); GLUCOSE,RANDOM 107 mg/dL (74-106); POTASSIUM 4.2 mmol/L (3.5-5.1); SODIUM 146 mmol/L (136-145)
--- NOTE | 2018-09-19 08:22 | PN ---
Progress Note, Physician Chief Complaint: remained afebrile TWBC is normal - Current Medication List Current Medications: Active Medications Amlodipine Besylate (Norvasc -) 10 mg PO DAILY [facility] Brimonidine Tartrate (Alphagan P 0.1% -) 1 drop OU BID [facility] Last Admin: 09/18/18 22:22 Dose: 1 drop Donepezil HCl (Aricept -) 10 mg PO DAILY [facility] Dorzolamide HCl (Trusopt 2%) 1 drop OU BID [facility] Last Admin: 09/18/18 22:37 Dose: 1 drop Enoxaparin Sodium (Lovenox -) 40 mg SQ DAILY [facility] Gabapentin (Neurontin -) 300 mg PO BID [facility] Last Admin: 09/18/18 22:22 Dose: 300 mg Sodium Chloride (Normal Saline -) 1,000 mls @ 50 mls/hr IV ASDIR [facility] Last Admin: 09/18/18 18:08 Dose: 50 mls/hr Clindamycin Phosphate (Cleocin 600 Mg Premix Ivpb -) 600 mg in 50 mls @ 104 mls /hr IVPB Q8H-IV [facility]; Protocol Last Admin: 09/19/18 01:51 Dose: 104 mls/hr Piperacillin Sod/Tazobactam (Sod 3.375 gm/ Dextrose) 50 mls @ 100 mls/hr IVPB Q8H-IV [facility]; Protocol Last Admin: 09/19/18 01:51 Dose: 100 mls/hr Insulin Aspart (Novolog Vial Sliding Scale -) 1 vial SQ TIDAC [facility]; Protocol Last Admin: 09/19/18 06:03 Dose: Not Given Insulin Aspart (Novolog Mix 70/30 Vial) 27 units SQ BIDAC [facility] Last Admin: 09/19/18 06:38 Dose: 27 units Latanoprost (Xalatan 0.005% Eye Drops -) 1 drop OU HS [facility] Last Admin: 09/18/18 22:23 Dose: 1 drop Memantine (Namenda -) 5 mg PO BID [facility] Last Admin: 09/18/18 22:22 Dose: 5 mg Metoprolol Succinate (Toprol Xl -) 100 mg PO DAILY [facility] Mirtazapine (Remeron -) 15 mg PO HS [facility] Last Admin: 09/18/18 22:22 Dose: 15 mg Non-Formulary Medication (Becaplermin [Regranex]) 15 gm TP DAILY [facility] Non-Formulary Medication (Donepezil Hcl [Donepezil Hcl]) 23 mg PO DAILY [facility] Tamsulosin HCl (Flomax -) 0.4 mg PO DAILY [facility] Timolol Maleate (Timoptic 0.5%) 1 drop OU BID [facility] Last Admin: 09/18/18 22:38 Dose: 1 drop - Objective Vital Signs: Vital Signs Temperature 98.1 F 09/19/18 06:54 Pulse Rate 63 09/19/18 06:54 Respiratory Rate 20 09/19/18 06:54 Blood Pressure 184/90 H 09/19/18 06:54 O2 Sat by Pulse Oximetry (%) 97 09/18/18 21:00 Elderly man comfortable not in distress HEENT: Mm moist, no anemia, PERRLA EOMI NECK: No JVd No Bruit CHEST: CTA B/L CVS: S1S2 R ABD: No distention non tender Bs + EXT: S/P transtarsal amputation of Left toes discharging exudate from Rt 2nd Toe DIGITAL ASSOCIATE: AOX3 non focal Labs: CBC, BMP 09/19/18 06:30 09/19/18 06:30 INR, PTT INR 1.04 (0.83-1.09) 09/18/18 12:15 Problem List - Problems (1) Cellulitis in diabetic foot Code(s): E13.628 - OTH DIABETES MELLITUS WITH OTHER SKIN COMPLICATIONS; L03.119 - CELLULITIS OF UNSPECIFIED PART OF LIMB (2) HTN (hypertension) Code(s): I10 - ESSENTIAL (PRIMARY) HYPERTENSION Qualifiers: Hypertension type: essential hypertension Qualified Code(s): I10 - Essential (primary) hypertension (3) T2DM (type 2 diabetes mellitus) Code(s): E11.9 - TYPE 2 DIABETES MELLITUS WITHOUT COMPLICATIONS Qualifiers: Diabetes mellitus complication status: with circulatory complication Diabetes mellitus complication detail: with peripheral angiopathy with gangrene (4) Acute kidney injury superimposed on CKD Code(s): N17.9 - ACUTE KIDNEY FAILURE, UNSPECIFIED; N18.9 - CHRONIC KIDNEY DISEASE, UNSPECIFIED (5) PVD (peripheral vascular disease) Code(s): I73.9 - PERIPHERAL VASCULAR DISEASE, UNSPECIFIED (6) Dementia Code(s): F03.90 - UNSPECIFIED DEMENTIA WITHOUT BEHAVIORAL DISTURBANCE
[2018-09-19] MEDS: amLODIPine BESYLATE 10 MG TABLET (FP) PO SCH ×2 (08:29→09:45)
[2018-09-19] MEDS: TAMSULOSIN HCL 0.4 MG CAP PO SCH (09:31)
[2018-09-19] MEDS: ENOXAPARIN NA (PORCINE) 40 MG/0.4 ML DISP.SYRIN SQ SCH (09:31)
[2018-09-19] MEDS: GABAPENTIN 300 MG CAPSULE (FP) PO SCH ×2 (09:31→21:29)
[2018-09-19] MEDS: MEMANTINE HCL 5 MG TABLET (UD) PO SCH ×2 (09:44→22:07)
[2018-09-19] MEDS: BRIMONIDINE TARTRATE 0.1% OPHTHALMIC 5 ML BOTTLE OU SCH ×2 (09:45→21:29)
[2018-09-19] MEDS: TIMOLOL 0.5% OPHTHALMIC SOL 5 ML BOTTLE OU SCH ×2 (09:48→21:30)
[2018-09-19] MEDS: DORZOLAMIDE 2% HCL OPHTHALMIC SOLUTION 10 ML BOTTLE OU SCH ×2 (09:54→21:30)
[2018-09-19] MEDS ORDERED: DONEPEZIL HCL 10 MG TABLET (FP) PO SCH (10:00)
--- NOTE | 2018-09-19 14:42 | PN ---
Progress Note, Physician Chief Complaint: remained afebrile TWBC is normal - Current Medication List Current Medications: Active Medications Amlodipine Besylate (Norvasc -) 10 mg PO DAILY [facility] Last Admin: 09/19/18 09:45 Dose: Not Given Brimonidine Tartrate (Alphagan P 0.1% -) 1 drop OU BID [facility] Last Admin: 09/19/18 09:45 Dose: 1 drop Donepezil HCl (Aricept -) 10 mg PO DAILY [facility] Last Admin: 09/19/18 09:31 Dose: 10 mg Dorzolamide HCl (Trusopt 2%) 1 drop OU BID [facility] Last Admin: 09/19/18 09:54 Dose: 1 drop Enoxaparin Sodium (Lovenox -) 40 mg SQ DAILY [facility] Last Admin: 09/19/18 09:31 Dose: 40 mg Gabapentin (Neurontin -) 300 mg PO BID [facility] Last Admin: 09/19/18 09:31 Dose: 300 mg Clindamycin Phosphate (Cleocin 600 Mg Premix Ivpb -) 600 mg in 50 mls @ 104 mls /hr IVPB Q8H-IV [facility]; Protocol Last Admin: 09/19/18 09:32 Dose: 104 mls/hr Piperacillin Sod/Tazobactam (Sod 3.375 gm/ Dextrose) 50 mls @ 100 mls/hr IVPB Q8H-IV [facility]; Protocol Last Admin: 09/19/18 09:32 Dose: 100 mls/hr Insulin Aspart (Novolog Vial Sliding Scale -) 1 vial SQ TIDAC [facility]; Protocol Last Admin: 09/19/18 11:21 Dose: 2 units Insulin Aspart (Novolog Mix 70/30 Vial) 27 units SQ BIDAC [facility] Last Admin: 09/19/18 06:38 Dose: 27 units Latanoprost (Xalatan 0.005% Eye Drops -) 1 drop OU HS [facility] Last Admin: 09/18/18 22:23 Dose: 1 drop Memantine (Namenda -) 5 mg PO BID [facility] Last Admin: 09/19/18 09:44 Dose: 5 mg Metoprolol Succinate (Toprol Xl -) 100 mg PO DAILY [facility] Last Admin: 09/19/18 11:00 Dose: Not Given Mirtazapine (Remeron -) 15 mg PO HS [facility] Last Admin: 12/07/18 22:22 Dose: 15 mg Non-Formulary Medication (Becaplermin [Regranex]) 15 gm TP DAILY [facility] Non-Formulary Medication (Donepezil Hcl [Donepezil Hcl]) 23 mg PO DAILY [facility] Tamsulosin HCl (Flomax -) 0.4 mg PO DAILY [facility] Last Admin: 09/19/18 09:31 Dose: 0.4 mg Timolol Maleate (Timoptic 0.5%) 1 drop OU BID [facility] Last Admin: 09/19/18 09:48 Dose: 1 drop - Objective Vital Signs: Vital Signs Temperature 98.1 F 09/19/18 14:20 Pulse Rate 62 09/19/18 14:20 Respiratory Rate 16 09/19/18 14:20 Blood Pressure 131/88 09/19/18 14:20 O2 Sat by Pulse Oximetry (%) 97 09/18/18 21:00 Elderly man comfortable not in distress HEENT: Mm moist, no anemia, PERRLA EOMI NECK: No JVd No Bruit CHEST: CTA B/L CVS: S1S2 R ABD: No distention non tender Bs + EXT: S/P transtarsal amputation of Left toes discharging exudate from Rt 2nd Toe 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 non focal Labs: CBC, BMP 09/19/18 06:30 09/19/18 06:30 INR, PTT INR 1.04 (0.83-1.09) 09/18/18 12:15 Problem List - Problems (1) Cellulitis in diabetic foot Assessment/Plan: Grew Clostrodium not responding to Po abx evaluted by ID on Zosyn and clindamycine as per ID f/u CRP and ESR Code(s): E13.628 - OTH DIABETES MELLITUS WITH OTHER SKIN COMPLICATIONS; L03.119 - CELLULITIS OF UNSPECIFIED PART OF LIMB (2) HTN (hypertension) Assessment/Plan: Cont Home meds Code(s): I10 - ESSENTIAL (PRIMARY) HYPERTENSION Qualifiers: Hypertension type: essential hypertension Qualified Code(s): I10 - Essential (primary) hypertension (3) T2DM (type 2 diabetes mellitus) Assessment/Plan: Cont home dose of Lnatus Hold Metformin correction dose insulin Code(s): E11.9 - TYPE 2 DIABETES MELLITUS WITHOUT COMPLICATIONS Qualifiers: Diabetes mellitus complication status: with circulatory complication Diabetes mellitus complication detail: with peripheral angiopathy with gangrene (4) Acute kidney injury superimposed on CKD Assessment/Plan: at base line GFR 60 present with risoisng creat and GFR 44 IV hydration hold losartan F/U BMP Bladder scan Code(s): N17.9 - ACUTE KIDNEY FAILURE, UNSPECIFIED; N18.9 - CHRONIC KIDNEY DISEASE, UNSPECIFIED (5) PVD (peripheral vascular disease) Assessment/Plan: S/p RT Foot tras trasal amputation Code(s): I73.9 - PERIPHERAL VASCULAR DISEASE, UNSPECIFIED (6) Dementia Assessment/Plan: Cont home meds Code(s): F03.90 - UNSPECIFIED DEMENTIA WITHOUT BEHAVIORAL DISTURBANCE
[2018-09-19] MEDS: SODIUM CHLORIDE 1,000 ML IV SCH ×2 (15:00→21:27)
--- NOTE | 2018-09-19 16:44 | PN ---
Progress Note, Physician History of Present Illness: Pt is alert, afebrile. Denies pain in Rt foot. Denies rash/diarrhea. - Current Medication List Current Medications: Active Medications Amlodipine Besylate (Norvasc -) 10 mg PO DAILY [facility] Last Admin: 09/19/18 09:45 Dose: Not Given Brimonidine Tartrate (Alphagan P 0.1% -) 1 drop OU BID [facility] Last Admin: 09/19/18 09:45 Dose: 1 drop Donepezil HCl (Aricept -) 10 mg PO DAILY [facility] Last Admin: 09/19/18 09:31 Dose: 10 mg Dorzolamide HCl (Trusopt 2%) 1 drop OU BID [facility] Last Admin: 09/19/18 09:54 Dose: 1 drop Enoxaparin Sodium (Lovenox -) 40 mg SQ DAILY [facility] Last Admin: 09/19/18 09:31 Dose: 40 mg Gabapentin (Neurontin -) 300 mg PO BID [facility] Last Admin: 09/19/18 09:31 Dose: 300 mg Clindamycin Phosphate (Cleocin 600 Mg Premix Ivpb -) 600 mg in 50 mls @ 104 mls /hr IVPB Q8H-IV [facility]; Protocol Last Admin: 09/19/18 09:32 Dose: 104 mls/hr Piperacillin Sod/Tazobactam (Sod 3.375 gm/ Dextrose) 50 mls @ 100 mls/hr IVPB Q8H-IV [facility]; Protocol Last Admin: 09/19/18 09:32 Dose: 100 mls/hr Sodium Chloride (Normal Saline -) 1,000 mls @ 75 mls/hr IV ASDIR [facility] Last Admin: 09/19/18 15:00 Dose: 75 mls/hr Insulin Aspart (Novolog Vial Sliding Scale -) 1 vial SQ TIDAC [facility]; Protocol Last Admin: 09/19/18 16:37 Dose: 2 units Insulin Aspart (Novolog Mix 70/30 Vial) 27 units SQ BIDAC [facility] Last Admin: 09/19/18 16:36 Dose: 27 units Latanoprost (Xalatan 0.005% Eye Drops -) 1 drop OU HS [facility] Last Admin: 09/18/18 22:23 Dose: 1 drop Memantine (Namenda -) 5 mg PO BID [facility] Last Admin: 09/19/18 09:44 Dose: 5 mg Metoprolol Succinate (Toprol Xl -) 100 mg PO DAILY [facility] Last Admin: 09/19/18 11:00 Dose: Not Given Mirtazapine (Remeron -) 15 mg PO HS [facility] Last Admin: 09/18/18 22:22 Dose: 15 mg Non-Formulary Medication (Becaplermin [Regranex]) 15 gm TP DAILY [facility] Non-Formulary Medication (Donepezil Hcl [Donepezil Hcl]) 23 mg PO DAILY [facility] Tamsulosin HCl (Flomax -) 0.4 mg PO DAILY [facility] Last Admin: 09/19/18 09:31 Dose: 0.4 mg Timolol Maleate (Timoptic 0.5%) 1 drop OU BID [facility] Last Admin: 09/19/18 09:48 Dose: 1 drop - Objective Vital Signs: Vital Signs Temperature 98.1 F 09/19/18 14:20 Pulse Rate 62 09/19/18 14:20 Respiratory Rate 16 09/19/18 14:20 Blood Pressure 131/88 09/19/18 14:20 O2 Sat by Pulse Oximetry (%) 97 09/18/18 21:00 Constitutional: Yes: No Distress, Calm Cardiovascular: Yes: Regular Rate and Rhythm Respiratory: Yes: Regular Gastrointestinal: Yes: Normal Bowel Sounds, Soft Wound/Incision: Yes: Other (Rt 2nd toe discoloration/dry, necrotic ulcer) Labs: CBC, BMP 09/19/18 06:30 09/19/18 06:30 INR, PTT INR 1.04 (0.83-1.09) 09/18/18 12:15 Problem List - Problems (1) Acute kidney injury superimposed on CKD Code(s): N17.9 - ACUTE KIDNEY FAILURE, UNSPECIFIED; N18.9 - CHRONIC KIDNEY DISEASE, UNSPECIFIED (2) Diabetes mellitus Code(s): E11.9 - TYPE 2 DIABETES MELLITUS WITHOUT COMPLICATIONS Qualifiers: Diabetes mellitus type: other specified (including HOMAR) Diabetes mellitus termination clerk insulin use: unspecified termination clerk insulin use status Diabetes mellitus complication status: with skin complications Diabetes mellitus complication detail: with foot ulcer Qualified Code(s): E13.621 - Other specified diabetes mellitus with foot ulcer (3) Gangrene of toe Code(s): I96 - GANGRENE, NOT ELSEWHERE CLASSIFIED (4) HTN (hypertension) Code(s): I10 - ESSENTIAL (PRIMARY) HYPERTENSION Qualifiers: Hypertension type: essential hypertension Qualified Code(s): I10 - Essential (primary) hypertension (5) Osteomyelitis of toe of right foot Code(s): M86.9 - OSTEOMYELITIS, UNSPECIFIED (6) PVD (peripheral vascular disease) Code(s): I73.9 - PERIPHERAL VASCULAR DISEASE, UNSPECIFIED (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 Zosyn/Clindamycin -- monitor renal function -- tight glycemic control
[2018-09-19] MEDS: MIRTAZAPINE 15 MG TABLET (FP) PO SCH (21:29)
[2018-09-19] MEDS: LATANOPROST 0.005% OPHTH SOLN 2.5ML BOTTLE OU SCH (21:30)
[2018-09-20] MEDS: PIPERACILLIN/TAZOB 3.375 GM 3.375 GM in DEXTROSE 5%-WATER - 50 ML IVPB SCH ×3 (01:24→17:17)
[2018-09-20] MEDS: CLINDAMYCIN 600MG PREMIX IVPB 600 MG/50 ML BAG IVPB SCH ×3 (02:15→17:17)
[2018-09-20] MEDS: INSULIN SLIDING SCALE (NOVOLOG) 1 VIAL SQ SCH ×3 (06:33→17:18)
[2018-09-20] MEDS ORDERED: PT OWN MED DRAWER 7, Y5N ONE ×2 (06:38→20:29)
[2018-09-20] MEDS: INSULIN (NOVOLOG MIX 70/30) 100 UNITS/ML MDV SQ SCH ×2 (07:00→17:17)
[2018-09-20 08:07] LABS: ANION GAP 9 MMOL/L (8-16); BLOOD UREA NITROGEN 25 mg/dL (7-18); CALCIUM 8.7 mg/dL (8.5-10.1); CHLORIDE 110 mmol/L (98-107); CO2 28 mmol/L (21-32); CREATININE 1.7 mg/dL (0.55-1.3); GLUCOSE,RANDOM 87 mg/dL (74-106); POTASSIUM 3.7 mmol/L (3.5-5.1); SODIUM 147 mmol/L (136-145)
[2018-09-20 08:13] LABS: BASO % 0.4 % (0-2.0); EOS % 3.9 % (0-4.5); HEMATOCRIT 37.9 % (35.4-49); LYMPH % 29.1 % (8-40); MCH 25.7 pg (25.7-33.7); MCHC 34.3 g/dl (32.0-35.9); MEAN CELL VOLUME 74.8 fl (80-96); MEAN PLT VOLUME 9.2 fl (7.5-11.1); MONO % 8.7 % (3.8-10.2); NEUT % 57.9 % (42.8-82.8); PLATELET COUNT 226 K/MM3 (134-434); RBC 5.07 M/mm3 (4.00-5.60); RDW 16.4 % (11.9-15.9); WHITE BLOOD COUNT 7.4 K/mm3 (4.0-10.0)
--- NOTE | 2018-09-20 08:44 | PN ---
Progress Note, Physician Chief Complaint: remained afebrile TWBC is normal - Current Medication List Current Medications: Active Medications Amlodipine Besylate (Norvasc -) 10 mg PO DAILY [facility] Last Admin: 09/19/18 09:45 Dose: Not Given Brimonidine Tartrate (Alphagan P 0.1% -) 1 drop OU BID [facility] Last Admin: 09/19/18 21:29 Dose: 1 drop Dorzolamide HCl (Trusopt 2%) 1 drop OU BID [facility] Last Admin: 09/19/18 21:30 Dose: 1 drop Enoxaparin Sodium (Lovenox -) 40 mg SQ DAILY [facility] Last Admin: 09/19/18 09:31 Dose: 40 mg Gabapentin (Neurontin -) 300 mg PO BID [facility] Last Admin: 09/19/18 21:29 Dose: 300 mg Clindamycin Phosphate (Cleocin 600 Mg Premix Ivpb -) 600 mg in 50 mls @ 104 mls /hr IVPB Q8H-IV [facility]; Protocol Last Admin: 09/20/18 02:15 Dose: 104 mls/hr Piperacillin Sod/Tazobactam (Sod 3.375 gm/ Dextrose) 50 mls @ 100 mls/hr IVPB Q8H-IV [facility]; Protocol Last Admin: 09/20/18 01:24 Dose: 100 mls/hr Sodium Chloride (Normal Saline -) 1,000 mls @ 75 mls/hr IV ASDIR [facility] Last Admin: 09/19/18 21:27 Dose: 75 mls/hr Insulin Aspart (Novolog Vial Sliding Scale -) 1 vial SQ TIDAC [facility]; Protocol Last Admin: 09/20/18 06:33 Dose: Not Given Insulin Aspart (Novolog Mix 70/30 Vial) 27 units SQ BIDAC [facility] Last Admin: 09/20/18 07:00 Dose: Not Given Latanoprost (Xalatan 0.005% Eye Drops -) 1 drop OU HS [facility] Last Admin: 09/19/18 21:30 Dose: 1 drop Memantine (Namenda -) 5 mg PO BID [facility] Last Admin: 09/19/18 22:07 Dose: 5 mg Metoprolol Succinate (Toprol Xl -) 100 mg PO DAILY [facility] Last Admin: 09/19/18 11:00 Dose: Not Given Mirtazapine (Remeron -) 15 mg PO HS [facility] Last Admin: 09/19/18 21:29 Dose: 15 mg Non-Formulary Medication (Becaplermin [Regranex]) 15 gm TP DAILY [facility] Non-Formulary Medication (Donepezil Hcl [Donepezil Hcl]) 0 mg PO DAILY@0900 [facility] Tamsulosin HCl (Flomax -) 0.4 mg PO DAILY [facility] Last Admin: 09/19/18 09:31 Dose: 0.4 mg Timolol Maleate (Timoptic 0.5%) 1 drop OU BID [facility] Last Admin: 09/19/18 21:30 Dose: 1 drop - Objective Vital Signs: Vital Signs Temperature 97.7 F 09/20/18 06:34 Pulse Rate 57 L 09/20/18 06:34 Respiratory Rate 20 09/20/18 06:34 Blood Pressure 156/82 09/20/18 06:34 O2 Sat by Pulse Oximetry (%) 97 09/19/18 21:00 Elderly man comfortable not in distress HEENT: Mm moist, no anemia, PERRLA EOMI NECK: No JVd No Bruit CHEST: CTA B/L CVS: S1S2 R ABD: No distention non tender Bs + EXT: S/P transtarsal amputation of Left toes discharging exudate from Rt 2nd Toe Labs: CBC, BMP 09/20/18 07:00 09/20/18 07:00 INR, PTT INR 1.04 (0.83-1.09) 09/18/18 12:15 Problem List - Problems (1) Cellulitis in diabetic foot Assessment/Plan: Grew Clostrodium not responding to Po abx evaluated by ID on Zosyn and clindamycin as per ID , F/U CRP and ESR Code(s): E13.628 - OTH DIABETES MELLITUS WITH OTHER SKIN COMPLICATIONS; L03.119 - CELLULITIS OF UNSPECIFIED PART OF LIMB (2) HTN (hypertension) Assessment/Plan: Cont Home meds Code(s): I10 - ESSENTIAL (PRIMARY) HYPERTENSION Qualifiers: Hypertension type: essential hypertension Qualified Code(s): I10 - Essential (primary) hypertension (3) T2DM (type 2 diabetes mellitus) Assessment/Plan: Cont home dose of Lnatus Hold Metformin correction dose insulin Code(s): E11.9 - TYPE 2 DIABETES MELLITUS WITHOUT COMPLICATIONS Qualifiers: Diabetes mellitus complication status: with circulatory complication Diabetes mellitus complication detail: with peripheral angiopathy with gangrene (4) Acute kidney injury superimposed on CKD Assessment/Plan: im[proving on IV Hydration F/U BMP Code(s): N17.9 - ACUTE KIDNEY FAILURE, UNSPECIFIED; N18.9 - CHRONIC KIDNEY DISEASE, UNSPECIFIED (5) PVD (peripheral vascular disease) Assessment/Plan: S/p RT Foot tras trasal amputation Code(s): I73.9 - PERIPHERAL VASCULAR DISEASE, UNSPECIFIED (6) Dementia Assessment/Plan: Cont home meds Code(s): F03.90 - UNSPECIFIED DEMENTIA WITHOUT BEHAVIORAL DISTURBANCE
[2018-09-20] MEDS: DONEPEZIL HCL PO SCH (09:39)
[2018-09-20] MEDS: TIMOLOL 0.5% OPHTHALMIC SOL 5 ML BOTTLE OU SCH ×2 (09:41→21:13)
[2018-09-20] MEDS: BRIMONIDINE TARTRATE 0.1% OPHTHALMIC 5 ML BOTTLE OU SCH ×2 (09:42→21:13)
[2018-09-20] MEDS: MEMANTINE HCL 5 MG TABLET (UD) PO SCH ×2 (09:42→21:11)
[2018-09-20] MEDS: DORZOLAMIDE 2% HCL OPHTHALMIC SOLUTION 10 ML BOTTLE OU SCH ×2 (09:44→21:11)
[2018-09-20] MEDS ORDERED: DEXTROSE 5%-WATER - 50 ML IVPB ONE ×2 (09:58→17:13)
[2018-09-20] MEDS ORDERED: PIPERACILLIN/TAZOBACTAM 3.375 GM VIAL IVPB ONE ×2 (09:58→17:13)
[2018-09-20] MEDS: GABAPENTIN 300 MG CAPSULE (FP) PO SCH ×2 (10:05→21:11)
[2018-09-20] MEDS: TAMSULOSIN HCL 0.4 MG CAP PO SCH (10:05)
[2018-09-20] MEDS: ENOXAPARIN NA (PORCINE) 40 MG/0.4 ML DISP.SYRIN SQ SCH (10:05)
[2018-09-20] MEDS: amLODIPine BESYLATE 10 MG TABLET (FP) PO SCH (10:05)
--- NOTE | 2018-09-20 11:03 | PN ---
Progress Note, Physician History of Present Illness: Pt is alert. Denies pain in Rt foot. States he feels well. Has no specific complaints. - Current Medication List Current Medications: Active Medications Amlodipine Besylate (Norvasc -) 10 mg PO DAILY [facility] Last Admin: 09/20/18 10:05 Dose: 10 mg Brimonidine Tartrate (Alphagan P 0.1% -) 1 drop OU BID [facility] Last Admin: 09/20/18 09:42 Dose: 1 drop Dorzolamide HCl (Trusopt 2%) 1 drop OU BID [facility] Last Admin: 09/20/18 09:44 Dose: 1 drop Enoxaparin Sodium (Lovenox -) 40 mg SQ DAILY [facility] Last Admin: 09/20/18 10:05 Dose: 40 mg Gabapentin (Neurontin -) 300 mg PO BID [facility] Last Admin: 09/20/18 10:05 Dose: 300 mg Clindamycin Phosphate (Cleocin 600 Mg Premix Ivpb -) 600 mg in 50 mls @ 104 mls /hr IVPB Q8H-IV [facility]; Protocol Last Admin: 09/20/18 10:05 Dose: 104 mls/hr Piperacillin Sod/Tazobactam (Sod 3.375 gm/ Dextrose) 50 mls @ 100 mls/hr IVPB Q8H-IV [facility]; Protocol Last Admin: 09/20/18 10:05 Dose: 100 mls/hr Sodium Chloride (Normal Saline -) 1,000 mls @ 75 mls/hr IV ASDIR [facility] Last Admin: 09/19/18 21:27 Dose: 75 mls/hr Insulin Aspart (Novolog Vial Sliding Scale -) 1 vial SQ TIDAC [facility]; Protocol Last Admin: 09/20/18 06:33 Dose: Not Given Insulin Aspart (Novolog Mix 70/30 Vial) 27 units SQ BIDAC [facility] Last Admin: 09/20/18 07:00 Dose: Not Given Latanoprost (Xalatan 0.005% Eye Drops -) 1 drop OU HS [facility] Last Admin: 09/19/18 21:30 Dose: 1 drop Memantine (Namenda -) 5 mg PO BID [facility] Last Admin: 09/20/18 09:42 Dose: 5 mg Metoprolol Succinate (Toprol Xl -) 100 mg PO DAILY [facility] Last Admin: 09/20/18 10:05 Dose: 100 mg Mirtazapine (Remeron -) 15 mg PO HS [facility] Last Admin: 09/19/18 21:29 Dose: 15 mg Non-Formulary Medication (Becaplermin [Regranex]) 15 gm TP DAILY [facility] Non-Formulary Medication (Donepezil Hcl [Donepezil Hcl]) 0 mg PO DAILY@0900 [facility] Last Admin: 09/20/18 09:39 Dose: 23 mg Tamsulosin HCl (Flomax -) 0.4 mg PO DAILY [facility] Last Admin: 09/20/18 10:05 Dose: 0.4 mg Timolol Maleate (Timoptic 0.5%) 1 drop OU BID [facility] Last Admin: 09/20/18 09:41 Dose: 1 drop - Objective Vital Signs: Vital Signs Temperature 97.9 F 09/20/18 09:45 Pulse Rate 56 L 09/20/18 09:45 Respiratory Rate 18 09/20/18 09:45 Blood Pressure 157/69 09/20/18 09:45 O2 Sat by Pulse Oximetry (%) 97 09/19/18 21:00 Constitutional: Yes: No Distress, Calm Cardiovascular: Yes: Regular Rate and Rhythm Respiratory: Yes: Regular Gastrointestinal: Yes: Normal Bowel Sounds, Soft Extremities: Yes: Other (Rt 2nd toe discoloration/dry gangrenous) Labs: CBC, BMP 09/20/18 07:00 09/20/18 07:00 INR, PTT INR 1.04 (0.83-1.09) 09/18/18 12:15 Problem List - Problems (1) Acute kidney injury superimposed on CKD Code(s): N17.9 - ACUTE KIDNEY FAILURE, UNSPECIFIED; N18.9 - CHRONIC KIDNEY DISEASE, UNSPECIFIED (2) Diabetes mellitus Code(s): E11.9 - TYPE 2 DIABETES MELLITUS WITHOUT COMPLICATIONS Qualifiers: Diabetes mellitus type: other specified (including HOMAR) Diabetes mellitus manager terminal insulin use: unspecified manager terminal insulin use status Diabetes mellitus complication status: with skin complications Diabetes mellitus complication detail: with foot ulcer Qualified Code(s): E13.621 - Other specified diabetes mellitus with foot ulcer (3) Gangrene of toe Code(s): I96 - GANGRENE, NOT ELSEWHERE CLASSIFIED (4) HTN (hypertension) Code(s): I10 - ESSENTIAL (PRIMARY) HYPERTENSION Qualifiers: Hypertension type: essential hypertension Qualified Code(s): I10 - Essential (primary) hypertension (5) Osteomyelitis of toe of right foot Code(s): M86.9 - OSTEOMYELITIS, UNSPECIFIED (6) PVD (peripheral vascular disease) Code(s): I73.9 - PERIPHERAL VASCULAR DISEASE, UNSPECIFIED (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 current antibiotics -- monitor renal function, creatinine decrease from yesterday -- tight glycemic control
[2018-09-20] MEDS: SODIUM CHLORIDE 1,000 ML IV SCH ×2 (12:30→17:18)
[2018-09-20] MEDS: MIRTAZAPINE 15 MG TABLET (FP) PO SCH (21:11)
[2018-09-20] MEDS: LATANOPROST 0.005% OPHTH SOLN 2.5ML BOTTLE OU SCH (21:12)
[2018-09-21] MEDS ORDERED: PIPERACILLIN/TAZOBACTAM 3.375 GM VIAL IVPB ONE ×3 (00:59→17:57)
[2018-09-21] MEDS ORDERED: DEXTROSE 5%-WATER - 50 ML IVPB ONE ×3 (00:59→17:57)
[2018-09-21] MEDS: PIPERACILLIN/TAZOB 3.375 GM 3.375 GM in DEXTROSE 5%-WATER - 50 ML IVPB SCH ×3 (01:11→18:56)
[2018-09-21] MEDS: CLINDAMYCIN 600MG PREMIX IVPB 600 MG/50 ML BAG IVPB SCH ×3 (01:12→18:03)
[2018-09-21] MEDS: SODIUM CHLORIDE 1,000 ML IV SCH (05:59)
[2018-09-21] MEDS: INSULIN (NOVOLOG MIX 70/30) 100 UNITS/ML MDV SQ SCH ×2 (06:03→17:33)
[2018-09-21] MEDS: INSULIN SLIDING SCALE (NOVOLOG) 1 VIAL SQ SCH ×3 (06:03→17:33)
[2018-09-21] MEDS ORDERED: INSULIN (NOVOLOG MIX 70/30) 100 UNITS/ML MDV SQ ONE (06:50)
[2018-09-21] MEDS: amLODIPine BESYLATE 10 MG TABLET (FP) PO SCH ×2 (06:57→09:11)
[2018-09-21 07:46] LABS: BASO % 0.5 % (0-2.0); EOS % 4.2 % (0-4.5); HEMATOCRIT 41.6 % (35.4-49); MCHC 31.2 g/dl (32.0-35.9); MEAN PLT VOLUME 8.9 fl (7.5-11.1); MONO % 8.8 % (3.8-10.2); NEUT % 55.5 % (42.8-82.8); PLATELET COUNT 221 K/MM3 (134-434); RDW 16.7 % (11.9-15.9); WHITE BLOOD COUNT 7.2 K/mm3 (4.0-10.0)
[2018-09-21 08:36] LABS: ANION GAP 8 MMOL/L (8-16); BLOOD UREA NITROGEN 17 mg/dL (7-18); CALCIUM 8.5 mg/dL (8.5-10.1); CHLORIDE 109 mmol/L (98-107); CO2 26 mmol/L (21-32); CREATININE 1.4 mg/dL (0.55-1.3); GLUCOSE,RANDOM 112 mg/dL (74-106); POTASSIUM 3.7 mmol/L (3.5-5.1); SODIUM 143 mmol/L (136-145)
--- NOTE | 2018-09-21 08:55 | PN ---
Progress Note, Physician Chief Complaint: remained afebrile TWBC is normal - Current Medication List Current Medications: Active Medications Amlodipine Besylate (Norvasc -) 10 mg PO DAILY [facility] Last Admin: 09/21/18 06:57 Dose: 10 mg Brimonidine Tartrate (Alphagan P 0.1% -) 1 drop OU BID [facility] Last Admin: 09/20/18 21:13 Dose: 1 drop Dorzolamide HCl (Trusopt 2%) 1 drop OU BID [facility] Last Admin: 09/20/18 21:11 Dose: 1 drop Enoxaparin Sodium (Lovenox -) 40 mg SQ DAILY [facility] Last Admin: 09/20/18 10:05 Dose: 40 mg Gabapentin (Neurontin -) 300 mg PO BID [facility] Last Admin: 09/20/18 21:11 Dose: 300 mg Clindamycin Phosphate (Cleocin 600 Mg Premix Ivpb -) 600 mg in 50 mls @ 104 mls /hr IVPB Q8H-IV [facility]; Protocol Last Admin: 09/21/18 01:12 Dose: 104 mls/hr Piperacillin Sod/Tazobactam (Sod 3.375 gm/ Dextrose) 50 mls @ 100 mls/hr IVPB Q8H-IV [facility]; Protocol Last Admin: 09/21/18 01:11 Dose: 100 mls/hr Sodium Chloride (Normal Saline -) 1,000 mls @ 75 mls/hr IV ASDIR COUNT INCLUDES [facility] Last Admin: 09/21/18 05:59 Dose: 75 mls/hr Insulin Aspart (Novolog Vial Sliding Scale -) 1 vial SQ TIDAC [facility]; Protocol Last Admin: 09/21/18 06:03 Dose: Not Given Insulin Aspart (Novolog Mix 70/30 Vial) 30 units SQ BIDAC [facility] Last Admin: 09/21/18 06:03 Dose: 30 units Latanoprost (Xalatan 0.005% Eye Drops -) 1 drop OU HS [facility] Last Admin: 09/20/18 21:12 Dose: 1 drop Memantine (Namenda -) 5 mg PO BID [facility] Last Admin: 09/20/18 21:11 Dose: 5 mg Metoprolol Succinate (Toprol Xl -) 100 mg PO DAILY [facility] Last Admin: 09/20/18 10:05 Dose: 100 mg Mirtazapine (Remeron -) 15 mg PO HS [facility] Last Admin: 09/20/18 21:11 Dose: 15 mg Non-Formulary Medication (Becaplermin [Regranex]) 15 gm TP DAILY [facility] Non-Formulary Medication (Donepezil Hcl [Donepezil Hcl]) 0 mg PO DAILY@0900 [facility] Last Admin: 09/20/18 09:39 Dose: 23 mg Tamsulosin HCl (Flomax -) 0.4 mg PO DAILY [facility] Last Admin: 09/20/18 10:05 Dose: 0.4 mg Timolol Maleate (Timoptic 0.5%) 1 drop OU BID [facility] Last Admin: 09/20/18 21:13 Dose: 1 drop - Objective Vital Signs: Vital Signs Temperature 98.1 F 09/21/18 07:13 Pulse Rate 50 L 09/21/18 07:13 Respiratory Rate 20 09/21/18 07:13 Blood Pressure 185/82 H 09/21/18 07:13 O2 Sat by Pulse Oximetry (%) 96 09/20/18 20:05 Elderly man comfortable not in distress HEENT: Mm moist, no anemia, PERRLA EOMI NECK: No JVd No Bruit CHEST: CTA B/L CVS: S1S2 R ABD: No distention non tender Bs + EXT: S/P transtarsal amputation of Left toes discharging exudate from Rt 2nd Toe Labs: CBC, BMP 09/21/18 06:15 09/21/18 06:15 INR, PTT INR 1.04 (0.83-1.09) 09/18/18 12:15 Problem List - Problems (1) Cellulitis in diabetic foot Assessment/Plan: Grew Clostrodium not responding to Po abx evaluated by ID on Zosyn and clindamycin as per ID , F/U CRP and ESR Code(s): E13.628 - OTH DIABETES MELLITUS WITH OTHER SKIN COMPLICATIONS; L03.119 - CELLULITIS OF UNSPECIFIED PART OF LIMB (2) HTN (hypertension) Assessment/Plan: Cont Home meds Code(s): I10 - ESSENTIAL (PRIMARY) HYPERTENSION Qualifiers: Hypertension type: essential hypertension Qualified Code(s): I10 - Essential (primary) hypertension (3) T2DM (type 2 diabetes mellitus) Assessment/Plan: Cont home dose of Lnatus Hold Metformin correction dose insulin Code(s): E11.9 - TYPE 2 DIABETES MELLITUS WITHOUT COMPLICATIONS Qualifiers: Diabetes mellitus complication status: with circulatory complication Diabetes mellitus complication detail: with peripheral angiopathy with gangrene (4) Acute kidney injury superimposed on CKD Assessment/Plan: im[proving on IV Hydration F/U BMP Code(s): N17.9 - ACUTE KIDNEY FAILURE, UNSPECIFIED; N18.9 - CHRONIC KIDNEY DISEASE, UNSPECIFIED (5) PVD (peripheral vascular disease) Assessment/Plan: S/p RT Foot tras trasal amputation Code(s): I73.9 - PERIPHERAL VASCULAR DISEASE, UNSPECIFIED (6) Dementia Assessment/Plan: Cont home meds Code(s): F03.90 - UNSPECIFIED DEMENTIA WITHOUT BEHAVIORAL DISTURBANCE
[2018-09-21] MEDS ORDERED: PT OWN MED DRAWER 7, Y5N ONE ×2 (08:59→21:24)
[2018-09-21] MEDS: GABAPENTIN 300 MG CAPSULE (FP) PO SCH ×2 (09:06→21:29)
[2018-09-21] MEDS: ENOXAPARIN NA (PORCINE) 40 MG/0.4 ML DISP.SYRIN SQ SCH (09:06)
[2018-09-21] MEDS: TAMSULOSIN HCL 0.4 MG CAP PO SCH (09:06)
[2018-09-21] MEDS: DONEPEZIL HCL PO SCH (09:06)
[2018-09-21] MEDS: MEMANTINE HCL 5 MG TABLET (UD) PO SCH ×2 (09:10→21:29)
[2018-09-21] MEDS: BRIMONIDINE TARTRATE 0.1% OPHTHALMIC 5 ML BOTTLE OU SCH ×2 (09:11→21:30)
[2018-09-21] MEDS: DORZOLAMIDE 2% HCL OPHTHALMIC SOLUTION 10 ML BOTTLE OU SCH ×2 (09:12→21:31)
[2018-09-21] MEDS: TIMOLOL 0.5% OPHTHALMIC SOL 5 ML BOTTLE OU SCH ×2 (09:55→21:31)
--- NOTE | 2018-09-21 13:18 | PN ---
Progress Note, Physician History of Present Illness: patient stable no issues - Current Medication List Current Medications: Active Medications Amlodipine Besylate (Norvasc -) 10 mg PO DAILY [facility] Last Admin: 09/21/18 09:11 Dose: Not Given Brimonidine Tartrate (Alphagan P 0.1% -) 1 drop OU BID [facility] Last Admin: 09/21/18 09:11 Dose: 1 drop Dorzolamide HCl (Trusopt 2%) 1 drop OU BID [facility] Last Admin: 09/21/18 09:12 Dose: 1 drop Enoxaparin Sodium (Lovenox -) 40 mg SQ DAILY [facility] Last Admin: 09/21/18 09:06 Dose: 40 mg Gabapentin (Neurontin -) 300 mg PO BID [facility] Last Admin: 09/21/18 09:06 Dose: 300 mg Clindamycin Phosphate (Cleocin 600 Mg Premix Ivpb -) 600 mg in 50 mls @ 104 mls /hr IVPB Q8H-IV [facility]; Protocol Last Admin: 09/21/18 09:04 Dose: 104 mls/hr Piperacillin Sod/Tazobactam (Sod 3.375 gm/ Dextrose) 50 mls @ 100 mls/hr IVPB Q8H-IV [facility]; Protocol Last Admin: 09/21/18 09:54 Dose: 100 mls/hr Insulin Aspart (Novolog Vial Sliding Scale -) 1 vial SQ TIDAC [facility]; Protocol Last Admin: 09/21/18 11:35 Dose: Not Given Insulin Aspart (Novolog Mix 70/30 Vial) 30 units SQ BIDAC [facility] Last Admin: 09/21/18 06:03 Dose: 30 units Latanoprost (Xalatan 0.005% Eye Drops -) 1 drop OU HS [facility] Last Admin: 09/20/18 21:12 Dose: 1 drop Memantine (Namenda -) 5 mg PO BID [facility] Last Admin: 09/21/18 09:10 Dose: 5 mg Metoprolol Succinate (Toprol Xl -) 100 mg PO DAILY [facility] Last Admin: 09/21/18 09:06 Dose: 100 mg Mirtazapine (Remeron -) 15 mg PO HS [facility] Last Admin: 09/20/18 21:11 Dose: 15 mg Non-Formulary Medication (Becaplermin [Regranex]) 15 gm TP DAILY [facility] Non-Formulary Medication (Donepezil Hcl [Donepezil Hcl]) 0 mg PO DAILY@0900 [facility] Last Admin: 09/21/18 09:06 Dose: 23 mg Tamsulosin HCl (Flomax -) 0.4 mg PO DAILY [facility] Last Admin: 09/21/18 09:06 Dose: 0.4 mg Timolol Maleate (Timoptic 0.5%) 1 drop OU BID [facility] Last Admin: 09/21/18 09:55 Dose: 1 drop - Objective Vital Signs: Vital Signs Temperature 98.1 F 09/21/18 10:20 Pulse Rate 53 L 09/21/18 10:20 Respiratory Rate 20 09/21/18 10:20 Blood Pressure 144/67 09/21/18 10:20 O2 Sat by Pulse Oximetry (%) 99 09/21/18 09:00 Constitutional: Yes: No Distress, Calm Cardiovascular: Yes: S1, S2 Respiratory: Yes: Regular, CTA Bilaterally Gastrointestinal: Yes: Normal Bowel Sounds, Soft Musculoskeletal: Yes: WNL Extremities: Yes: Other Wound/Incision: Yes: Dressing Dry and Intact Neurological: Yes: Alert, Oriented Psychiatric: Yes: Alert, Oriented Labs: CBC, BMP 09/21/18 06:15 09/21/18 06:15 INR, PTT INR 1.04 (0.83-1.09) 09/18/18 12:15 Assessment/Plan Problem List - Problems (1) Cellulitis in diabetic foot Code(s): E13.628 - OTH DIABETES MELLITUS WITH OTHER SKIN COMPLICATIONS; L03.119 - CELLULITIS OF UNSPECIFIED PART OF LIMB (2) HTN (hypertension) Code(s): I10 - ESSENTIAL (PRIMARY) HYPERTENSION Qualifiers: Hypertension type: essential hypertension Qualified Code(s): I10 - Essential (primary) hypertension (3) T2DM (type 2 diabetes mellitus) Code(s): E11.9 - TYPE 2 DIABETES MELLITUS WITHOUT COMPLICATIONS Qualifiers: Diabetes mellitus complication status: with circulatory complication Diabetes mellitus complication detail: with peripheral angiopathy with gangrene (4) Acute kidney injury superimposed on CKD Code(s): N17.9 - ACUTE KIDNEY FAILURE, UNSPECIFIED; N18.9 - CHRONIC KIDNEY DISEASE, UNSPECIFIED (5) PVD (peripheral vascular disease) Code(s): I73.9 - PERIPHERAL VASCULAR DISEASE, UNSPECIFIED (6) Dementia Code(s): F03.90 - UNSPECIFIED DEMENTIA WITHOUT BEHAVIORAL DISTURBANCE 7 osteo of the rt foot i am worried that the patient might need amputation of the toe and i ahve spoken to the family about this plan continue current mgmt will d/w with vascular/podiatry about the need for amputation rest continue current mgmt will decide further course
--- NOTE | 2018-09-21 15:48 | CONSULT ---
- Consultation REQUESTING PROVIDER: CONSULT REQUEST: We have been asked to surgically evaluate this patient for (L second toe ulcer). PCP:Darron Presley HISTORY OF PRESENT ILLNESS: 83 yrs old M w/ PMHx T2DM, Diabetes Nephro and Neuropathy, PAD s/p L JASWANT atherectomy/angioplasty [place] angioplasty (Dr Hernandez, 01/16/17), s/p Left foot Transtarsal amputation (Dr Hernandez, 03/04/17), HTN, High Cholesterol, Dementia, BPH , CKD stage 3-4, now admitted with ulcer over right second toe. Per pt and , pt developed ulcer a few weeks past. States he is unsure how it began, however feels it may be due to his Diabetic shoes not fitting well as he developed a blister which turned into an ulcer on the back of his L heel. Pt has had an MRI on 08/24 which revealed bone marrow edema of the proximal/ middle phalange which is c/w osteomyelitis. Pt had a subsequent bone biopsy on 09/11 which grew Clostrodium perfengens. Pt has received PO abx, but has now been admitted for IV abx. Denies fever/chills at home, denies n/v/d, cp/sob, h/ o tobacco abuse. At baseline, pt lives home with . Ambulates without assistance, is able to complete his adls. PMHx: as stated above PSHx: as above Home Medications Medication Instructions Recorded Amlodipine Besylate [Norvasc -] 10 mg PO DAILY 01/12/17 Donepezil HCl 23 mg PO DAILY 01/12/17 Gabapentin [Neurontin -] 300 mg PO BID 01/12/17 Insulin Lispro Protamin/Lispro 27 unit SQ BIDAC 01/12/17 [Humalog Mix 75-25 Kwikpen] Memantine HCl [Namenda -] 10 mg PO BID 01/12/17 Metoprolol Succinate [Toprol Xl] 100 mg PO DAILY 01/12/17 Mirtazapine [Remeron -] 15 mg PO HS 01/12/17 Tamsulosin HCl [Flomax] 0.4 mg PO DAILY 01/12/17 metFORMIN HCL [Metformin HCl] 500 mg PO BIDAC 01/12/17 Bimatoprost [Lumigan] 1 drop OU HS 01/14/17 Brimonidine Tartrate [Alphagan P 1 drop OU BID 01/14/17 0.1% -] Dorzolamide HCl/Timolol Maleat 1 drop OU BID 01/14/17 [Cosopt Eye Drops] Becaplermin [Regranex] 15 gm TP DAILY #1 gel..gram. 07/04/17 Donepezil HCl [Aricept] 10 mg PO DAILY 09/18/18 Losartan Potassium 100 mg PO DAILY 09/18/18 Memantine HCl [Namenda -] 5 mg PO BID 09/18/18 Allergies Allergy/AdvReac Type Severity Reaction Status Date / Time No Known Allergies Allergy Verified 09/18/18 10:05 REVIEW OF SYSTEMS: CONSTITUTIONAL: Absent: fever, chills CARDIOVASCULAR: Absent: chest pain, syncope RESPIRATORY: Absent: cough, shortness of breath GASTROINTESTINAL: Absent: abdominal pain PHYSICAL EXAM: GENERAL: Awake, alert, and fully oriented, in no acute distress. HEAD: Normal with no signs of trauma. LOWER EXTREMITIES: L foot tma well healed, no ulcerations. L heel with small 1.5x1.5cm dried superficial ulcer just below Achilles with no erythema or drainage. R foot with 2x2cm circular dried eschar overlying 2nd PIP joint. No erythema or drainage. Great toe with severe onychomycosis fusing into overlying callus. No intertriginous skin breakdown, no other ulcerations. No edema. Vasc: L 2+ pt/dp, R 1+ dp/pt Vital Signs Temperature 98.1 F 09/21/18 10:20 Pulse Rate 53 L 09/21/18 10:20 Respiratory Rate 20 09/21/18 10:20 Blood Pressure 144/67 09/21/18 10:20 O2 Sat by Pulse Oximetry (%) 99 09/21/18 09:00 Lab Results WBC 7.2 K/mm3 (4.0-10.0) 09/21/18 06:15 RBC 5.40 M/mm3 (4.00-5.60) 09/21/18 06:15 Hgb 13.0 GM/dL (11.7-16.9) 09/21/18 06:15 Hct 41.6 % (35.4-49) 09/21/18 06:15 MCV 77.0 fl (80-96) L 09/21/18 06:15 MCHC 31.2 g/dl (32.0-35.9) L 09/21/18 06:15 RDW 16.7 % (11.9-15.9) H 09/21/18 06:15 Plt Count 221 K/MM3 (134-434) 09/21/18 06:15 Sodium 143 mmol/L (136-145) 09/21/18 06:15 Potassium 3.7 mmol/L (3.5-5.1) 09/21/18 06:15 Chloride 109 mmol/L (98-107) H 09/21/18 06:15 Carbon Dioxide 26 mmol/L (21-32) 09/21/18 06:15 Anion Gap 8 MMOL/L (8-16) 09/21/18 06:15 BUN 17 mg/dL (7-18) 09/21/18 06:15 Creatinine 1.4 mg/dL (0.55-1.3) H 09/21/18 06:15 Random Glucose 112 mg/dL (74-106) H 09/21/18 06:15 Calcium 8.5 mg/dL (8.5-10.1) 09/21/18 06:15 Blood Type O POSITIVE 09/18/18 12:10 Antibody Screen Negative 09/18/18 12:10 INR 1.04 (0.83-1.09) 09/18/18 12:15 A/P: 83 yrs old M w/ PMHx T2DM, Diabetes Nephro and Neuropathy, PAD s/p L JASWANT atherectomy/angioplasty [place] angioplasty (Dr Hernandez, 01/16/17), s/p Left foot Transtarsal amputation (Dr Hernandez, 03/04/17), HTN, High Cholesterol, Dementia, BPH , CKD stage 3-4, now admitted with ulcer over right second toe. MRI + for osteomyelitis, bone biopsy culture with Clostrodium perfengens. No clinical signs of infection, pt reluctant to have amputation at this time. -Recommend abx course for osteomyelitis per ID -Betadine solution to eschar -Keep dry 4x4 between all toes at all times, change daily -Will follow d/w attending Dr Heranndez
[2018-09-21] MEDS: MIRTAZAPINE 15 MG TABLET (FP) PO SCH (21:28)
[2018-09-21] MEDS: LATANOPROST 0.005% OPHTH SOLN 2.5ML BOTTLE OU SCH (21:32)
[2018-09-22] MEDS ORDERED: PIPERACILLIN/TAZOBACTAM 3.375 GM VIAL IVPB ONE ×3 (01:18→17:28)
[2018-09-22] MEDS ORDERED: DEXTROSE 5%-WATER - 50 ML IVPB ONE ×3 (01:19→17:28)
[2018-09-22] MEDS: CLINDAMYCIN 600MG PREMIX IVPB 600 MG/50 ML BAG IVPB SCH ×3 (01:24→17:35)
[2018-09-22] MEDS: PIPERACILLIN/TAZOB 3.375 GM 3.375 GM in DEXTROSE 5%-WATER - 50 ML IVPB SCH ×3 (02:05→18:20)
[2018-09-22] MEDS: INSULIN SLIDING SCALE (NOVOLOG) 1 VIAL SQ SCH ×3 (06:47→17:38)
[2018-09-22] MEDS: INSULIN (NOVOLOG MIX 70/30) 100 UNITS/ML MDV SQ SCH ×2 (06:49→17:38)
[2018-09-22] MEDS ORDERED: INSULIN (NOVOLOG MIX 70/30) 100 UNITS/ML MDV SQ ONE (06:52)
[2018-09-22 07:32] LABS: BASO % 0.6 % (0-2.0); EOS % 3.8 % (0-4.5); HEMATOCRIT 39.6 % (35.4-49); HEMOGLOBIN 12.7 GM/dL (11.7-16.9); LYMPH % 27.7 % (8-40); MCH 24.2 pg (25.7-33.7); MCHC 32.2 g/dl (32.0-35.9); MEAN CELL VOLUME 75.3 fl (80-96); MEAN PLT VOLUME 8.4 fl (7.5-11.1); MONO % 8.3 % (3.8-10.2); NEUT % 59.6 % (42.8-82.8); PLATELET COUNT 215 K/MM3 (134-434); RBC 5.26 M/mm3 (4.00-5.60); RDW 16.8 % (11.9-15.9); WHITE BLOOD COUNT 7.4 K/mm3 (4.0-10.0)
[2018-09-22 08:10] LABS: ANION GAP 7 MMOL/L (8-16); BLOOD UREA NITROGEN 16 mg/dL (7-18); CALCIUM 8.5 mg/dL (8.5-10.1); CHLORIDE 108 mmol/L (98-107); CO2 29 mmol/L (21-32); CREATININE 1.4 mg/dL (0.55-1.3); GLUCOSE,RANDOM 100 mg/dL (74-106); POTASSIUM 3.6 mmol/L (3.5-5.1); SODIUM 143 mmol/L (136-145)
[2018-09-22] MEDS ORDERED: PT OWN MED DRAWER 7, Y5N ONE ×3 (09:00→22:00)
[2018-09-22] MEDS: GABAPENTIN 300 MG CAPSULE (FP) PO SCH ×2 (09:29→22:09)
[2018-09-22] MEDS: TAMSULOSIN HCL 0.4 MG CAP PO SCH (09:29)
[2018-09-22] MEDS: ENOXAPARIN NA (PORCINE) 40 MG/0.4 ML DISP.SYRIN SQ SCH (09:30)
[2018-09-22] MEDS: MEMANTINE HCL 5 MG TABLET (UD) PO SCH ×2 (09:30→22:09)
[2018-09-22] MEDS: DONEPEZIL HCL PO SCH (09:30)
[2018-09-22] MEDS: amLODIPine BESYLATE 10 MG TABLET (FP) PO SCH (09:30)
[2018-09-22] MEDS: BRIMONIDINE TARTRATE 0.1% OPHTHALMIC 5 ML BOTTLE OU SCH ×2 (09:31→22:11)
[2018-09-22] MEDS: DORZOLAMIDE 2% HCL OPHTHALMIC SOLUTION 10 ML BOTTLE OU SCH ×2 (09:32→22:11)
[2018-09-22] MEDS: TIMOLOL 0.5% OPHTHALMIC SOL 5 ML BOTTLE OU SCH ×2 (09:33→22:09)
--- NOTE | 2018-09-22 12:17 | PN ---
Progress Note, Physician History of Present Illness: patient doing well no new issues surgery note noted - Current Medication List Current Medications: Active Medications Amlodipine Besylate (Norvasc -) 10 mg PO DAILY [facility] Last Admin: 09/22/18 09:30 Dose: 10 mg Brimonidine Tartrate (Alphagan P 0.1% -) 1 drop OU BID [facility] Last Admin: 09/22/18 09:31 Dose: 1 drop Dorzolamide HCl (Trusopt 2%) 1 drop OU BID [facility] Last Admin: 09/22/18 09:32 Dose: 1 drop Enoxaparin Sodium (Lovenox -) 40 mg SQ DAILY [facility] Last Admin: 09/22/18 09:30 Dose: 40 mg Gabapentin (Neurontin -) 300 mg PO BID [facility] Last Admin: 09/22/18 09:29 Dose: 300 mg Clindamycin Phosphate (Cleocin 600 Mg Premix Ivpb -) 600 mg in 50 mls @ 104 mls /hr IVPB Q8H-IV [facility]; Protocol Last Admin: 09/22/18 09:20 Dose: 104 mls/hr Piperacillin Sod/Tazobactam (Sod 3.375 gm/ Dextrose) 50 mls @ 100 mls/hr IVPB Q8H-IV [facility]; Protocol Last Admin: 09/22/18 10:09 Dose: 100 mls/hr Insulin Aspart (Novolog Vial Sliding Scale -) 1 vial SQ TIDAC [facility]; Protocol Last Admin: 09/22/18 11:25 Dose: 2 units Insulin Aspart (Novolog Mix 70/30 Vial) 30 units SQ BIDAC [facility] Last Admin: 09/22/18 06:49 Dose: Not Given Latanoprost (Xalatan 0.005% Eye Drops -) 1 drop OU HS [facility] Last Admin: 09/21/18 21:32 Dose: 1 drop Memantine (Namenda -) 5 mg PO BID [facility] Last Admin: 09/22/18 09:30 Dose: 5 mg Metoprolol Succinate (Toprol Xl -) 100 mg PO DAILY [facility] Last Admin: 09/22/18 09:30 Dose: 100 mg Mirtazapine (Remeron -) 15 mg PO HS [facility] Last Admin: 09/21/18 21:28 Dose: 15 mg Non-Formulary Medication (Becaplermin [Regranex]) 15 gm TP DAILY [facility] Non-Formulary Medication (Donepezil Hcl [Donepezil Hcl]) 0 mg PO DAILY@0900 [facility] Last Admin: 09/22/18 09:30 Dose: 23 mg Tamsulosin HCl (Flomax -) 0.4 mg PO DAILY [facility] Last Admin: 09/22/18 09:29 Dose: 0.4 mg Timolol Maleate (Timoptic 0.5%) 1 drop OU BID [facility] Last Admin: 09/22/18 09:33 Dose: 1 drop - Objective Vital Signs: Vital Signs Temperature 98.1 F 09/22/18 06:00 Pulse Rate 53 L 09/22/18 06:00 Respiratory Rate 20 09/22/18 06:00 Blood Pressure 164/78 09/22/18 06:00 O2 Sat by Pulse Oximetry (%) 98 09/22/18 09:00 Constitutional: Yes: No Distress, Calm Cardiovascular: Yes: Regular Rate and Rhythm Respiratory: Yes: Regular, CTA Bilaterally Gastrointestinal: Yes: Normal Bowel Sounds, Soft Musculoskeletal: Yes: WNL Extremities: Yes: Other Wound/Incision: Yes: Dressing Dry and Intact Neurological: Yes: Alert, Oriented Psychiatric: Yes: Alert, Oriented Labs: CBC, BMP 09/22/18 07:00 09/22/18 07:00 INR, PTT INR 1.04 (0.83-1.09) 09/18/18 12:15 Assessment/Plan Problem List - Problems (1) Cellulitis in diabetic foot Code(s): E13.628 - OTH DIABETES MELLITUS WITH OTHER SKIN COMPLICATIONS; L03.119 - CELLULITIS OF UNSPECIFIED PART OF LIMB (2) HTN (hypertension) Code(s): I10 - ESSENTIAL (PRIMARY) HYPERTENSION Qualifiers: Hypertension type: essential hypertension Qualified Code(s): I10 - Essential (primary) hypertension (3) T2DM (type 2 diabetes mellitus) Code(s): E11.9 - TYPE 2 DIABETES MELLITUS WITHOUT COMPLICATIONS Qualifiers: Diabetes mellitus complication status: with circulatory complication Diabetes mellitus complication detail: with peripheral angiopathy with gangrene (4) Acute kidney injury superimposed on CKD Code(s): N17.9 - ACUTE KIDNEY FAILURE, UNSPECIFIED; N18.9 - CHRONIC KIDNEY DISEASE, UNSPECIFIED (5) PVD (peripheral vascular disease) Code(s): I73.9 - PERIPHERAL VASCULAR DISEASE, UNSPECIFIED (6) Dementia Code(s): F03.90 - UNSPECIFIED DEMENTIA WITHOUT BEHAVIORAL DISTURBANCE 7 osteo of the rt foot plan patient can be given ceftriaxone 2 gm daily for 5 more weeks clinda 300 mg every 8 hourly orally for 7 more days wound care rest as per the team
--- NOTE | 2018-09-22 17:26 | PN ---
Progress Note, Physician Chief Complaint: remained afebrile TWBC is normal - Current Medication List Current Medications: Active Medications Amlodipine Besylate (Norvasc -) 10 mg PO DAILY [facility] Last Admin: 09/22/18 09:30 Dose: 10 mg Brimonidine Tartrate (Alphagan P 0.1% -) 1 drop OU BID [facility] Last Admin: 09/22/18 09:31 Dose: 1 drop Dorzolamide HCl (Trusopt 2%) 1 drop OU BID [facility] Last Admin: 09/22/18 09:32 Dose: 1 drop Enoxaparin Sodium (Lovenox -) 40 mg SQ DAILY [facility] Last Admin: 09/22/18 09:30 Dose: 40 mg Gabapentin (Neurontin -) 300 mg PO BID [facility] Last Admin: 09/22/18 09:29 Dose: 300 mg Clindamycin Phosphate (Cleocin 600 Mg Premix Ivpb -) 600 mg in 50 mls @ 104 mls /hr IVPB Q8H-IV [facility]; Protocol Last Admin: 09/22/18 09:20 Dose: 104 mls/hr Piperacillin Sod/Tazobactam (Sod 3.375 gm/ Dextrose) 50 mls @ 100 mls/hr IVPB Q8H-IV [facility]; Protocol Last Admin: 09/22/18 10:09 Dose: 100 mls/hr Insulin Aspart (Novolog Vial Sliding Scale -) 1 vial SQ TIDAC [facility]; Protocol Last Admin: 09/22/18 11:25 Dose: 2 units Insulin Aspart (Novolog Mix 70/30 Vial) 30 units SQ BIDAC [facility] Last Admin: 09/22/18 06:49 Dose: Not Given Latanoprost (Xalatan 0.005% Eye Drops -) 1 drop OU HS [facility] Last Admin: 09/21/18 21:32 Dose: 1 drop Memantine (Namenda -) 5 mg PO BID [facility] Last Admin: 09/22/18 09:30 Dose: 5 mg Metoprolol Succinate (Toprol Xl -) 100 mg PO DAILY [facility] Last Admin: 09/22/18 09:30 Dose: 100 mg Mirtazapine (Remeron -) 15 mg PO HS [facility] Last Admin: 09/21/18 21:28 Dose: 15 mg Non-Formulary Medication (Becaplermin [Regranex]) 15 gm TP DAILY [facility] Non-Formulary Medication (Donepezil Hcl [Donepezil Hcl]) 0 mg PO DAILY@0900 [facility] Last Admin: 09/22/18 09:30 Dose: 23 mg Tamsulosin HCl (Flomax -) 0.4 mg PO DAILY [facility] Last Admin: 09/22/18 09:29 Dose: 0.4 mg Timolol Maleate (Timoptic 0.5%) 1 drop OU BID [facility] Last Admin: 09/22/18 09:33 Dose: 1 drop - Objective Vital Signs: Vital Signs Temperature 98.1 F 09/22/18 06:00 Pulse Rate 53 L 09/22/18 06:00 Respiratory Rate 20 09/22/18 06:00 Blood Pressure 164/78 09/22/18 06:00 O2 Sat by Pulse Oximetry (%) 98 09/22/18 09:00 Elderly man comfortable not in distress HEENT: Mm moist, no anemia, PERRLA EOMI NECK: No JVd No Bruit CHEST: CTA B/L CVS: S1S2 R ABD: No distention non tender Bs + EXT: S/P transtarsal amputation of Left toes discharging exudate from Rt 2nd Toe Labs: CBC, BMP 09/22/18 07:00 09/22/18 07:00 INR, PTT INR 1.04 (0.83-1.09) 09/18/18 12:15 Problem List - Problems (1) Cellulitis in diabetic foot Assessment/Plan: Grew Clostrodium not responding to Po abx evaluated by ID on Zosyn and clindamycin as per ID , F/U CRP and ESR Code(s): E13.628 - OTH DIABETES MELLITUS WITH OTHER SKIN COMPLICATIONS; L03.119 - CELLULITIS OF UNSPECIFIED PART OF LIMB (2) HTN (hypertension) Assessment/Plan: Cont Home meds Code(s): I10 - ESSENTIAL (PRIMARY) HYPERTENSION Qualifiers: Hypertension type: essential hypertension Qualified Code(s): I10 - Essential (primary) hypertension (3) T2DM (type 2 diabetes mellitus) Assessment/Plan: Cont home dose of Lnatus Hold Metformin correction dose insulin Code(s): E11.9 - TYPE 2 DIABETES MELLITUS WITHOUT COMPLICATIONS Qualifiers: Diabetes mellitus complication status: with circulatory complication Diabetes mellitus complication detail: with peripheral angiopathy with gangrene (4) Acute kidney injury superimposed on CKD Assessment/Plan: im[proving on IV Hydration F/U BMP Code(s): N17.9 - ACUTE KIDNEY FAILURE, UNSPECIFIED; N18.9 - CHRONIC KIDNEY DISEASE, UNSPECIFIED (5) PVD (peripheral vascular disease) Assessment/Plan: S/p RT Foot tras trasal amputation Code(s): I73.9 - PERIPHERAL VASCULAR DISEASE, UNSPECIFIED (6) Dementia Assessment/Plan: Cont home meds Code(s): F03.90 - UNSPECIFIED DEMENTIA WITHOUT BEHAVIORAL DISTURBANCE
[2018-09-22] MEDS ORDERED: INSULIN (NOVOLOG) ASPART 100 UNITS/ML 10ML VIAL ONE (17:54)
[2018-09-22] MEDS: MIRTAZAPINE 15 MG TABLET (FP) PO SCH (22:09)
[2018-09-22] MEDS: LATANOPROST 0.005% OPHTH SOLN 2.5ML BOTTLE OU SCH (22:11)
[2018-09-23] MEDS: CLINDAMYCIN 600MG PREMIX IVPB 600 MG/50 ML BAG IVPB SCH (02:32)
[2018-09-23] MEDS ORDERED: PIPERACILLIN/TAZOBACTAM 3.375 GM VIAL IVPB ONE (02:37)
[2018-09-23] MEDS ORDERED: DEXTROSE 5%-WATER - 50 ML IVPB ONE (02:37)
[2018-09-23] MEDS: PIPERACILLIN/TAZOB 3.375 GM 3.375 GM in DEXTROSE 5%-WATER - 50 ML IVPB SCH (03:23)
[2018-09-23] MEDS: INSULIN SLIDING SCALE (NOVOLOG) 1 VIAL SQ SCH ×3 (06:15→17:42)
[2018-09-23] MEDS: INSULIN (NOVOLOG MIX 70/30) 100 UNITS/ML MDV SQ SCH ×2 (06:19→17:42)
[2018-09-23] MEDS ORDERED: DEXTROSE 5%-WATER 100 ML IVPB ONE (09:29)
[2018-09-23] MEDS: TAMSULOSIN HCL 0.4 MG CAP PO SCH (10:00)
[2018-09-23] MEDS ORDERED: CEFTRIAXONE 2 GM in DEXTROSE 5%-WATER 100 ML IVPB SCH (10:00)
[2018-09-23] MEDS: amLODIPine BESYLATE 10 MG TABLET (FP) PO SCH (10:00)
[2018-09-23] MEDS: GABAPENTIN 300 MG CAPSULE (FP) PO SCH (10:00)
[2018-09-23] MEDS: MEMANTINE HCL 5 MG TABLET (UD) PO SCH (10:02)
[2018-09-23] MEDS: DORZOLAMIDE 2% HCL OPHTHALMIC SOLUTION 10 ML BOTTLE OU SCH (10:03)
[2018-09-23] MEDS: DONEPEZIL HCL PO SCH (10:03)
[2018-09-23] MEDS: BRIMONIDINE TARTRATE 0.1% OPHTHALMIC 5 ML BOTTLE OU SCH (10:04)
[2018-09-23] MEDS: TIMOLOL 0.5% OPHTHALMIC SOL 5 ML BOTTLE OU SCH (10:08)
--- NOTE | 2018-09-23 11:13 | PN ---
Progress Note, Physician History of Present Illness: patient stable no new issues doing better - Current Medication List Current Medications: Active Medications Amlodipine Besylate (Norvasc -) 10 mg PO DAILY [facility] Last Admin: 09/23/18 10:00 Dose: 10 mg Brimonidine Tartrate (Alphagan P 0.1% -) 1 drop OU BID [facility] Last Admin: 09/23/18 10:04 Dose: 1 drop Clindamycin HCl (Cleocin -) 300 mg PO TID [facility] Dorzolamide HCl (Trusopt 2%) 1 drop OU BID [facility] Last Admin: 09/23/18 10:03 Dose: 1 drop Enoxaparin Sodium (Lovenox -) 40 mg SQ DAILY [facility] Last Admin: 09/22/18 09:30 Dose: 40 mg Gabapentin (Neurontin -) 300 mg PO BID [facility] Last Admin: 09/23/18 10:00 Dose: 300 mg Ceftriaxone Sodium 2 gm/ (Dextrose) 100 mls @ 200 mls/hr IVPB DAILY [facility] Last Admin: 09/23/18 09:59 Dose: 200 mls/hr Insulin Aspart (Novolog Vial Sliding Scale -) 1 vial SQ [facility]; Protocol Last Admin: 09/23/18 06:15 Dose: Not Given Insulin Aspart (Novolog Mix 70/30 Vial) 30 units SQ BIDAC [facility] Last Admin: 09/23/18 06:19 Dose: 30 units Latanoprost (Xalatan 0.005% Eye Drops -) 1 drop OU HS [facility] Last Admin: 09/22/18 22:11 Dose: 1 drop Memantine (Namenda -) 5 mg PO BID [facility] Last Admin: 09/23/18 10:02 Dose: 5 mg Metoprolol Succinate (Toprol Xl -) 100 mg PO DAILY [facility] Last Admin: 09/23/18 10:00 Dose: 100 mg Mirtazapine (Remeron -) 15 mg PO [facility] Last Admin: 09/22/18 22:09 Dose: 15 mg Non-Formulary Medication (Becaplermin [Regranex]) 15 gm TP DAILY [facility] Non-Formulary Medication (Donepezil Hcl [Donepezil Hcl]) 0 mg PO DAILY@0900 [facility] Last Admin: 09/23/18 10:03 Dose: 23 mg Sitagliptin Phosphate (Januvia -) 100 mg PO DAILY@0700 [facility] Tamsulosin HCl (Flomax -) 0.4 mg PO DAILY [facility] Last Admin: 09/23/18 10:00 Dose: 0.4 mg Timolol Maleate (Timoptic 0.5%) 1 drop OU BID [facility] Last Admin: 09/23/18 10:08 Dose: 1 drop - Objective Vital Signs: Vital Signs Temperature 98.1 F 09/23/18 06:21 Pulse Rate 52 L 09/23/18 06:21 Respiratory Rate 20 09/23/18 06:21 Blood Pressure 152/76 09/23/18 06:21 O2 Sat by Pulse Oximetry (%) 97 09/22/18 21:00 Constitutional: Yes: No Distress, Calm Cardiovascular: Yes: Regular Rate and Rhythm Respiratory: Yes: Regular, CTA Bilaterally Gastrointestinal: Yes: Normal Bowel Sounds, Soft Musculoskeletal: Yes: WNL Extremities: Yes: WNL Neurological: Yes: Alert, Oriented Psychiatric: Yes: Alert, Oriented Labs: CBC, BMP 09/22/18 07:00 09/22/18 07:00 INR, PTT INR 1.04 (0.83-1.09) 09/18/18 12:15 Assessment/Plan Problem List - Problems (1) Cellulitis in diabetic foot Code(s): E13.628 - OTH DIABETES MELLITUS WITH OTHER SKIN COMPLICATIONS; L03.119 - CELLULITIS OF UNSPECIFIED PART OF LIMB (2) HTN (hypertension) Code(s): I10 - ESSENTIAL (PRIMARY) HYPERTENSION Qualifiers: Hypertension type: essential hypertension Qualified Code(s): I10 - Essential (primary) hypertension (3) T2DM (type 2 diabetes mellitus) Code(s): E11.9 - TYPE 2 DIABETES MELLITUS WITHOUT COMPLICATIONS Qualifiers: Diabetes mellitus complication status: with circulatory complication Diabetes mellitus complication detail: with peripheral angiopathy with gangrene (4) Acute kidney injury superimposed on CKD Code(s): N17.9 - ACUTE KIDNEY FAILURE, UNSPECIFIED; N18.9 - CHRONIC KIDNEY DISEASE, UNSPECIFIED (5) PVD (peripheral vascular disease) Code(s): I73.9 - PERIPHERAL VASCULAR DISEASE, UNSPECIFIED (6) Dementia Code(s): F03.90 - UNSPECIFIED DEMENTIA WITHOUT BEHAVIORAL DISTURBANCE 7 osteo of the rt foot plan abx as planned wound care rest as per the team
[2018-09-23] MEDS: ENOXAPARIN NA (PORCINE) 40 MG/0.4 ML DISP.SYRIN SQ SCH (13:58)
[2018-09-23] MEDS ORDERED: CLINDAMYCIN HCL 150 MG CAPSULE (FP) PO SCH (14:00)
[2018-09-23 17:04] VITALS: BP 157/69; PULSE 58; TEMP 98.2
[2018-09-23] MEDS: PATIENT'S OWN MEDICATION (NON-FORMULARY) (Becaplermin [Regranex] 15 GM) TP SCH (17:41)
[2018-09-24] MEDS ORDERED: sitaGLIPtin PHOSPHATE 100 MG TABLET (FP) PO SCH (07:00)
--- NOTE | 2018-09-25 18:30 | DS ---
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 OM Rt 2nd toe proximal aand middle palanx, underwent Bone Biopsy on 09/11 that shows no OM but Culture grew Clostrodium perfengens patient recived PO abx but wound remaine active with discharge no fever chills or any systemic symptom admitted for IV abx patient denies any chest pain SOB or palpitation. Intially treated with Zosyn and Clindmycine, patient was havoing LASHON on admission resolved after IV Hydration, Metformin switched to Januvia, patient is getting DC home on 7 days PO Clindamycine and 5 wks IV Ceftriaxone 2 gm daily F/U with ID and Wound care, patient got PICC line for IV abx at home. Condition: Stable - Instructions Diet, Activity, Other Instructions: Dibetic Diet Home with IV abx Referrals: Darron Presley MD [Primary Care Provider] - 1 Week Jayme Cristobal MD [Staff Physician] - 1 Week Disposition: HOME - Home Medications Comprehensive Discharge Medication List: Ambulatory Orders Amlodipine Besylate [Norvasc -] 10 mg PO DAILY 01/12/17 Donepezil HCl 23 mg PO DAILY 01/12/17 Gabapentin [Neurontin -] 300 mg PO BID 01/12/17 Insulin Lispro Protamin/Lispro [Humalog Mix 75-25 Kwikpen] 27 unit SQ BIDAC 11/29 Memantine HCl [Namenda -] 10 mg PO BID 01/12/17 Metoprolol Succinate [Toprol Xl] 100 mg PO DAILY 01/12/17 Mirtazapine [Remeron -] 15 mg PO HS 01/12/17 Tamsulosin HCl [Flomax -] 0.4 mg PO DAILY 01/12/17 Bimatoprost [Lumigan] 1 drop OU HS 01/14/17 Brimonidine Tartrate [Alphagan P 0.1% -] 1 drop OU BID 01/14/17 Dorzolamide HCl/Timolol Maleat [Cosopt Eye Drops] 1 drop OU BID 01/14/17 Becaplermin [Regranex] 15 gm TP DAILY #1 gel..gram. 07/04/17 Donepezil HCl [Aricept] 10 mg PO DAILY 09/18/18 Losartan Potassium 100 mg PO DAILY 09/18/18 Memantine HCl [Namenda -] 5 mg PO BID 09/18/18 Ceftriaxone [Rocephin -] 2 gm IVPB DAILY 30 Days #30 vial 09/23/18 Clindamycin [Cleocin -] 300 mg PO TID 7 Days #20 capsule 09/23/18 Dorzolamide HCl [Trusopt 2% -] 1 drop OU BID drops 09/23/18 Gabapentin [Neurontin -] 300 mg PO BID capsule 09/23/18 Sitagliptin Phosphate [Januvia -] 100 mg PO DAILY@0700 #30 ud 09/23/18 Timolol 0.5% [Timoptic 0.5%] 1 drop OU BID drops 09/23/18
== END 2018-09-23 17:31 | disposition home or self-care (01) | DRG 300 ==
LOC: JER 09:25 → JERBED 14:07 → J8W 17:19
PROVIDERS: ADMIT Internal Medicine; ATTEND Internal Medicine
PROC: 02HV33Z Insertion of Infusion Device into Superior Vena Cava, Percutaneous Approach (ICD-10-PCS; principal; 2018-09-23)
PROC: B548ZZA Ultrasonography of Superior Vena Cava, Guidance (ICD-10-PCS; 2018-09-23)
DX: E11.52 Type 2 diabetes mellitus with diabetic peripheral angiopathy with gangrene (principal); M86.8X7 Other osteomyelitis, ankle and foot; I96 Gangrene, not elsewhere classified; N18.4 Chronic kidney disease, stage 4 (severe); N17.9 Acute kidney failure, unspecified; E11.69 Type 2 diabetes mellitus with other specified complication; Z89.422 Acquired absence of other left toe(s); G30.9 Alzheimer's disease, unspecified; F02.80 Dementia in other diseases classified elsewhere, unspecified severity, without behavioral disturbance, psychotic disturbance, mood disturbance, and anxiety; E11.40 Type 2 diabetes mellitus with diabetic neuropathy, unspecified; E11.21 Type 2 diabetes mellitus with diabetic nephropathy; N40.0 Benign prostatic hyperplasia without lower urinary tract symptoms; E11.22 Type 2 diabetes mellitus with diabetic chronic kidney disease; I12.9 Hypertensive chronic kidney disease with stage 1 through stage 4 chronic kidney disease, or unspecified chronic kidney disease; Z79.4 Long term (current) use of insulin; E11.628 Type 2 diabetes mellitus with other skin complications; L03.032 Cellulitis of left toe; L97.519 Non-pressure chronic ulcer of other part of right foot with unspecified severity
CPT/HCPCS: 36415; 36569; 71045-TC-FY; 77001-TC-FY; 80048; 80053; 82962; 85025; 85610; 85651; 86140; 86850; 86900; 86901; 87040; 93005; 93010; 99283-25; C1751; G0463-25; J7030

== ENCOUNTER 2018-10-22 12:09 | Day surgery (SDC) | payer OTHER ==
[2018-10-21 14:45] VITALS: BMI 25.8
[~2018-10-22 12:09] MED LIST: LIDOCAINE HCL 1%, 10 MG/ML (50 mL VIAL) IJ ONE; ceFAZolin SODIUM 1 GM VIAL IVPB ONE
[2018-10-22] MEDS ORDERED: MIDAZOLAM HCL 2 MG/2 ML SINGLE DOSE VIAL ONE ×2 (15:19)
[2018-10-22] MEDS ORDERED: LIDOCAINE HCL 1%, 10 MG/ML (50 mL VIAL) IJ ONE ×2 (15:37)
--- NOTE | 2018-10-22 16:16 | HP ---
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: Alzheimer's, Dementia, TIA Cardiovascular: Yes: HTN, Hyperlipdemia Endocrine: Yes: [place]'s Disease, Diabetes Mellitus - Advance Directives Advance Directives: Yes: Health Care Proxy - Smoking History Smoking history: Never smoked Have you smoked in the past 12 months: No - Alcohol/Substance Use Hx Alcohol Use: No Home Medications - Allergies Allergies/Adverse Reactions: Allergies Allergy/AdvReac Type Severity Reaction Status Date / Time No Known Allergies Allergy Verified 10/22/18 13:19 - Home Medications Home Medications: Ambulatory Orders Amlodipine Besylate 10 mg PO DAILY 10/22/18 Ceftriaxone [Rocephin 2Gm Ivpb (Pre-Docked)] 2 gm IVPB DAILY 10/22/18 Donepezil HCl [Aricept] 23 mg PO DAILY 10/22/18 Gabapentin 300 mg PO BID 10/22/18 Insulin Lispro Protamin/Lispro [Humalog Mix 75-25 Kwikpen] 27 unit SQ BID Memantine HCl [Namenda -] 10 mg PO BID 10/22/18 Metformin HCl [Metformin HCl ER] 500 mg PO BID 10/22/18 Metoprolol Succinate [Toprol Xl] 100 mg PO DAILY 10/22/18 Mirtazapine [Remeron -] 15 mg PO HS 10/22/18 Tamsulosin HCl [Flomax] 0.4 mg PO DAILY 10/22/18 Valsartan 160 mg PO BID 10/22/18 Review of Systems - Review of Systems Constitutional: reports: No Symptoms Eyes: reports: No Symptoms HENT: reports: No Symptoms Neck: reports: No Symptoms Cardiovascular: reports: No Symptoms Respiratory: reports: No Symptoms Gastrointestinal: reports: No Symptoms Genitourinary: reports: No Symptoms Musculoskeletal: reports: No Symptoms Integumentary: reports: No Symptoms Neurological: reports: No Symptoms Endocrine: reports: No Symptoms Hematology/Lymphatic: reports: No Symptoms Psychiatric: reports: No Symptoms Physical Examination Vital Signs: Vital Signs Temperature 98.0 F 10/22/18 13:16 Pulse Rate 52 L 10/22/18 13:16 Respiratory Rate 16 10/22/18 13:16 Blood Pressure 138/68 10/22/18 13:16 O2 Sat by Pulse Oximetry (%) 100 10/22/18 13:16 Constitutional: Yes: Well Nourished, No Distress, Calm Eyes: Yes: WNL, Conjunctiva Clear, EOM Intact HENT: Yes: WNL, Atraumatic, Normocephalic Neck: Yes: WNL, Supple, Trachea Midline Cardiovascular: Yes: WNL, Regular Rate and Rhythm Respiratory: Yes: WNL, Regular, CTA Bilaterally Gastrointestinal: Yes: WNL, Normal Bowel Sounds Musculoskeletal: Yes: WNL Extremities: Yes: WNL, Other (First and second toe ulcers right foot) Edema: No Peripheral Pulses WNL: Yes (right PT pulse ) Integumentary: Yes: WNL Neurological: Yes: WNL, Alert, Oriented ...Motor Strength: WNL Psychiatric: Yes: WNL Problem List - Problems (1) Gangrene of toe Assessment/Plan: Gangrene first and second toe right foot 1. For angiogram via co2 today Code(s): I96 - GANGRENE, NOT ELSEWHERE CLASSIFIED
--- NOTE | 2018-10-22 16:18 | OP ---
Operative Note - Note: Operative Date: 10/22/18 Pre-Operative Diagnosis: right great toe and first toe gangrene Operation: CO2 aortogram, Co2 RLE angiogram Findings: Peroneal runoff - to PT. NO AT runoff into foot Post-Operative Diagnosis: Same as Pre-op Surgeon: Jey Hernandez Anesthesia: Fractional Estimated Blood Loss (mls): 50 Operative Report Dictated: Yes
[2018-10-22 20:24] VITALS: TEMP 97.5
[2018-10-22 20:30] VITALS: BP 140/79; PULSE 56
--- NOTE | 2018-10-24 12:18 | OP ---
DATE OF OPERATION: 10/22/2018 PREOPERATIVE DIAGNOSIS: Right second toe gangrene, first toe gangrene. POSTOPERATIVE DIAGNOSIS: Right second toe gangrene, first toe gangrene. PROCEDURE: CO2 aortogram, CO2 right lower extremity angiogram. SURGEON: Jey Moscoso DO ANESTHESIA: Fractional. BLOOD LOSS: 20 mL INDICATIONS: The patient is an 83-year-old male that has right great toe and second toe gangrene. He has his bone exposed on his second toe, which turns out to be osteomyelitis and the patient is currently getting antibiotics through a PICC line. Due to the fact that it has now been 4 weeks of antibiotics and the toes are not getting better, it was decided that he would need an angiogram. Preoperative ultrasound showed tibial disease. Patient had a BNP done prior and it showed that he has a borderline creatinine of 1.3 and it was decided that we would use CO2. PROCEDURE: Patient came into Ambulatory Surgery. Patient was consented for the procedure understanding all risks, benefits and alternatives. He was then taken to the operating room. Once in the operating room, he was laid on the operating room table in supine manner and the area of the right and left groin were prepped and draped in the sterile surgical manner. We then injected 10 mL of lidocaine 1% over the left common femoral artery. We then used the micropuncture needle, punctured the left common femoral artery. Micropuncture wire was inserted. Micropuncture sheath was inserted. A 0.035 floppy guidewire was inserted and a 5-Khmer sheath was inserted. We then placed a 0.035 guidewire up into the aorta, followed by Omni Flush catheter. We then shot a CO2 aortogram showing that the aorta and iliac arteries were without any disease. We then brought our wire up and over to the right common femoral artery and we were able to place the Omni Flush catheter to follow. We then shot a right lower extremity CO2 angiogram showing that the common femoral artery and the profunda were patent. The SFA was patent. The popliteal artery was patent. Tibial trunk was patent. Patient had 1 vessel runoff, which was the peroneal going down to the ankle and then feeding and then giving a large collateral to the posterior tibial artery that finishes in the plantar aspect of the foot. Patient does not have an anterior tibial artery, does have a posterior tibial artery from its origin. At this point no more intervention was needed. We brought our Omni Flush catheter up and over. We then removed our 5-Khmer sheath from the left groin. Pressure was held for 5 minutes. After there was no bleeding, the area was wet and dried and Dermabond was placed. Patient tolerated this procedure with no complications. Patient transferred to PACU in stable condition. Total blood loss 20 mL. JEY MOSCOSO DO NP/[id number]
== END 2018-10-22 18:05 | disposition home or self-care (01) ==
LOC: JASU-SURG 12:09
PROVIDERS: ATTEND Surgery Vascular Surgery
PROC: B41DZZZ Fluoroscopy of Aorta and Bilateral Lower Extremity Arteries (ICD-10-PCS; principal; 2018-10-22 15:30)
DX: E11.52 Type 2 diabetes mellitus with diabetic peripheral angiopathy with gangrene (principal); E11.628 Type 2 diabetes mellitus with other skin complications; L97.519 Non-pressure chronic ulcer of other part of right foot with unspecified severity; I96 Gangrene, not elsewhere classified; Z79.4 Long term (current) use of insulin; M86.9 Osteomyelitis, unspecified
CPT/HCPCS: 75710-TC-FY; 82962; 94760

== ENCOUNTER 2018-10-29 09:31 | Inpatient (IN) | payer OTHER ==
[2018-10-28 08:33] VITALS: BMI 25.8
[2018-10-29] MEDS ORDERED: LIDOCAINE HCL 1%, 10 MG/ML (20ML VIAL) ONE (12:36)
[2018-10-29] MEDS ORDERED: BUPIVACAINE HCL/PF 0.5% (5MG/ML) 10 ML VIAL ONE (12:36)
[2018-10-29] MEDS ORDERED: LIDOCAINE HCL 1%, 10 MG/ML (20ML VIAL) PNB ONE (12:45)
[2018-10-29] MEDS ORDERED: BUPIVACAINE HCL/PF (5 MG/ML) 30 ML VIAL IJ ONE (12:45)
[2018-10-29] MEDS ORDERED: ceFAZolin SODIUM 1 GM VIAL IVPB ONE (13:08)
[2018-10-29] MEDS ORDERED: BACITRACIN 50,000 UNITS VIAL TP ONE (13:33)
--- NOTE | 2018-10-29 13:58 | OP ---
Operative Note - Note: Operative Date: 10/29/18 Pre-Operative Diagnosis: Right foot gangrene Operation: Right first and second toe transmetarsal amputation, third - fifth toe amputation. Post-Operative Diagnosis: Same as Pre-op Surgeon: Jorge Salgado English Professor: Jey Hernandez Anesthesia: Fractional Estimated Blood Loss (mls): 75 Operative Report Dictated: Yes
--- NOTE | 2018-10-29 14:00 | HP ---
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: Yes: Alzheimer's, Dementia, TIA Cardiovascular: Yes: HTN, Hyperlipdemia Endocrine: Yes: [place]'s Disease, Diabetes Mellitus - Smoking History Smoking history: Never smoked Have you smoked in the past 12 months: No - Alcohol/Substance Use Hx Alcohol Use: No Home Medications - Allergies Allergies/Adverse Reactions: Allergies Allergy/AdvReac Type Severity Reaction Status Date / Time No Known Allergies Allergy Verified 10/28/18 14:32 - Home Medications Home Medications: Ambulatory Orders Amlodipine Besylate 10 mg PO DAILY 10/22/18 Donepezil HCl [Aricept] 23 mg PO DAILY 10/22/18 Gabapentin 300 mg PO BID 10/22/18 Insulin Lispro Protamin/Lispro [Humalog Mix 75-25 Kwikpen] 27 unit SQ BID Memantine HCl [Namenda -] 10 mg PO BID 10/22/18 Metoprolol Succinate [Toprol Xl] 100 mg PO DAILY 10/22/18 Mirtazapine [Remeron -] 15 mg PO HS 10/22/18 Tamsulosin HCl [Flomax] 0.4 mg PO DAILY 10/22/18 Valsartan 160 mg PO BID 10/22/18 metFORMIN HCL [Metformin HCl ER] 500 mg PO BID 10/22/18 Review of Systems - Review of Systems Constitutional: reports: No Symptoms Eyes: reports: No Symptoms HENT: reports: No Symptoms Neck: reports: No Symptoms Cardiovascular: reports: No Symptoms Respiratory: reports: No Symptoms Gastrointestinal: reports: No Symptoms Genitourinary: reports: No Symptoms Breasts: reports: No Symptoms Reported Musculoskeletal: reports: No Symptoms Integumentary: reports: No Symptoms Neurological: reports: No Symptoms Endocrine: reports: No Symptoms Hematology/Lymphatic: reports: No Symptoms Psychiatric: reports: No Symptoms Physical Examination Vital Signs: Vital Signs Temperature 98.3 F 10/29/18 11:15 Pulse Rate 54 L 10/29/18 11:15 Respiratory Rate 18 10/29/18 11:15 Blood Pressure 151/70 10/29/18 11:15 O2 Sat by Pulse Oximetry (%) 100 10/29/18 10:37 Constitutional: Yes: Well Nourished, No Distress, Calm Eyes: Yes: WNL, Conjunctiva Clear, EOM Intact HENT: Yes: WNL, Atraumatic, Normocephalic Neck: Yes: WNL, Supple, Trachea Midline Cardiovascular: Yes: WNL, Regular Rate and Rhythm Respiratory: Yes: WNL, Regular, CTA Bilaterally Gastrointestinal: Yes: WNL, Normal Bowel Sounds Musculoskeletal: Yes: WNL Extremities: Yes: WNL Edema: No Peripheral Pulses WNL: Yes Integumentary: Yes: WNL Neurological: Yes: WNL, Alert, Oriented ...Motor Strength: WNL Psychiatric: Yes: WNL Problem List - Problems (1) Gangrene of right foot Assessment/Plan: For TMA today Code(s): I96 - GANGRENE, NOT ELSEWHERE CLASSIFIED
[2018-10-29] MEDS: metFORMIN HCL 500 MG TABLET (FP) PO SCH (17:19)
[2018-10-29] MEDS: INSULIN (NOVOLOG MIX 70/30) 100 UNITS/ML MDV SQ SCH (17:23)
[2018-10-30] MEDS: metFORMIN HCL 500 MG TABLET (FP) PO SCH ×2 (06:36→17:34)
[2018-10-30] MEDS: INSULIN (NOVOLOG MIX 70/30) 100 UNITS/ML MDV SQ SCH (06:38)
[2018-10-30] MEDS ORDERED: amLODIPine BESYLATE 10 MG TABLET (FP) PO SCH (10:00)
--- NOTE | 2018-10-30 11:00 | OP ---
DATE OF OPERATION: 10/29/2018 SURGEON: Jorge Salgado DPM POLICY MANAGER: Jey Hernandez DO PREOPERATIVE DIAGNOSIS: Gangrene right foot. POSTOPERATIVE DIAGNOSIS: Gangrene right foot. PROCEDURE: Transmetatarsal amputation of rays 1 and 4, amputation of toes 2, 3 , and 5, right foot, with an autologous skin flap. DESCRIPTION OF PROCEDURE: After noting all preoperative vital signs were within normal limits and after surgical consent was signed and witnessed, the patient was brought to the OR, placed on the table in supine position. An IV line had been started prior to the patient coming to the OR. Once the patient was in the OR, the patient was sedated and a local infiltrate was put in the mid-tarsal joint area as well as the posterior tibial tendon area to numb the foot. Once the patient's foot was numb, it was then prepped and draped in usual sterile fashion. Attention was then directed to the forefoot. Utilizing a 15 blade, toes 1 through 5 were resected and sent down to Pathology. All unavoidable vessels were ligated in usual fashion. All other neurovascular structures were retracted out of surgical site at this time. Attention was then directed to the metatarsal heads. Closure would not be adequate without resection of metatarsal heads 1 & 4. Metatarsal head 1 was resected with a saggital saw and sent down to Pathology. Attention was directed then to the metatarsal head number 4. This was resected and sent down to Pathology. The flap was then liberated from the plantar aspect. The flap from plantar was then re-approximated with the dorsal incision line. The edges were remodeled as necessary due to necrosis and to bleeding. Once the flap was pulled up, utilizing 3-0 nylon and 2 -0 Prolene, the incision line was closed. The patient tolerated the anesthesia and the procedure well. Xeroform gauze, fluff dressing, a combine, and Damián bandage were applied. The patient returned to the recovery room with vital signs stable and vascular status intact to stump. DENISSE Oliveira/[id number] MTDD
--- NOTE | 2018-10-30 11:40 | PN ---
Progress Note (short form) - Note Progress Note: POD#1 Pt without any complaints. No foot pain this am, tolerated a diet and had a BM. Vital Signs Period Temp Pulse Resp BP Sys/Burrell Pulse Ox Last 24 Hr 97.5 F-99.9 F 46-61 12-20 142-161/56-79 96-100 GEN: appears comfortable Right foot: Dressing c/d/i. No bleeding. A/P: 83 yo male s/p R TMA, POD#1 D/w Dr. Hernandez, pt to remain in the hospital on bed rest. DVT ppx with heparin SQ Dressing removal on Friday Resummed all oral medications Admission order/certificaiton completed today
[2018-10-30] MEDS ORDERED: IBUPROFEN 800 MG/8 ML IJ IVPB PRN (14:01)
--- NOTE | 2018-10-30 14:11 | PN ---
Progress Note (short form) - Note Progress Note: Vascular surgery Pt seen and examined. Pt with low grade fever at 100.9. Dressing on right foot changed. TMA site is clean. no signs of any infection. Transferring pt to medical service Will consult ID as per medical team. Will follow Jey Hernandez DO Problem List - Problems (1) Gangrene of right foot Code(s): I96 - GANGRENE, NOT ELSEWHERE CLASSIFIED
[2018-10-30] MEDS ORDERED: MORPHINE SULFATE 2 MG/ML VIAL IVPUSH PRN (14:15)
--- NOTE | 2018-10-30 14:33 | CON.ID ---
Consult Consult Specialty:: infectious diseases Referred by:: dr spaulding Reason for Consultation:: chills low grade fever - History of Present Illness Chief Complaint: chills History of Present Illness: 83 yrs old mna H/O T2DM, Diabetes and Neuropathy, PAD s/p Left foot Transtarsal amputation , HTN, High Cholestrol, Dementia, BPH CKD known to me from previous admission came with gangrene of the foot.patient was seen by vascular and taken to the operating room and patient underwent amputation patient was doing well post but started having some chills and became low grade febrile and i was called into picture currently patient feels cold in the room spoke wiht the according to the surgical department patients dressing was removed and the wound is doing ok - History Source History Provided By: Patient, Family Member Limitations to Obtaining History: No Limitations - Past Medical History 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: Alzheimer's, Dementia, TIA Cardio/Vascular: Yes: HTN, Hyperlipdemia Endocrine: Yes: [place]'s Disease, Diabetes Mellitus - Alcohol/Substance Use Hx Alcohol Use: No - Smoking History Smoking history: Never smoked Have you smoked in the past 12 months: No Home Medications - Allergies Allergies/Adverse Reactions: Allergies Allergy/AdvReac Type Severity Reaction Status Date / Time No Known Allergies Allergy Verified 10/28/18 14:32 - Home Medications Home Medications: Ambulatory Orders Amlodipine Besylate 10 mg PO DAILY 10/22/18 Donepezil HCl [Aricept] 23 mg PO DAILY 10/22/18 Gabapentin 300 mg PO BID 10/22/18 Insulin Lispro Protamin/Lispro [Humalog Mix 75-25 Kwikpen] 27 unit SQ BID Memantine HCl [Namenda -] 10 mg PO BID 10/22/18 Metoprolol Succinate [Toprol Xl] 100 mg PO DAILY 10/22/18 Mirtazapine [Remeron -] 15 mg PO HS 10/22/18 Tamsulosin HCl [Flomax] 0.4 mg PO DAILY 10/22/18 Valsartan 160 mg PO BID 10/22/18 metFORMIN HCL [Metformin HCl ER] 500 mg PO BID 10/22/18 Review of Systems - Review of Systems Constitutional: reports: Chills, Fever Eyes: reports: No Symptoms HENT: reports: No Symptoms Neck: reports: No Symptoms Cardiovascular: reports: No Symptoms Respiratory: reports: No Symptoms Gastrointestinal: reports: No Symptoms Genitourinary: reports: No Symptoms Musculoskeletal: reports: Other Integumentary: reports: Other Neurological: reports: No Symptoms Endocrine: reports: No Symptoms Hematology/Lymphatic: reports: No Symptoms Psychiatric: reports: No Symptoms Physical Exam Vital Signs: Vital Signs Temperature 99.9 F H 10/30/18 05:00 Pulse Rate 60 10/30/18 05:00 Respiratory Rate 12 10/30/18 01:00 Blood Pressure 154/71 10/30/18 05:00 O2 Sat by Pulse Oximetry (%) 97 10/29/18 20:22 Constitutional: Yes: Well Nourished, Calm, Mild Distress Eyes: Yes: Conjunctiva Clear HENT: Yes: Atraumatic, Normocephalic Neck: Yes: Supple, Trachea Midline Cardiovascular: Yes: Regular Rate and Rhythm Respiratory: Yes: Regular, CTA Bilaterally Gastrointestinal: Yes: Normal Bowel Sounds, Soft Wound/Incision: Yes: Dressing Dry and Intact Neurological: Yes: Alert, Oriented Psychiatric: Yes: Alert, Oriented Imaging - Results X-ray: Report Reviewed, Image Reviewed Assessment/Plan Problem List - Problems (1) Gangrene of right foot Code(s): I96 - GANGRENE, NOT ELSEWHERE CLASSIFIED (2) Diabetes mellitus Code(s): E11.9 - TYPE 2 DIABETES MELLITUS WITHOUT COMPLICATIONS Qualifiers: Diabetes mellitus type: other specified (including HOMAR) Diabetes mellitus fpc insulin use: unspecified fpc insulin use status Diabetes mellitus complication status: with skin complications Diabetes mellitus complication detail: with foot ulcer Qualified Code(s): E13.621 - Other specified diabetes mellitus with foot ulcer (3) HTN (hypertension) Code(s): I10 - ESSENTIAL (PRIMARY) HYPERTENSION Qualifiers: Hypertension type: essential hypertension Qualified Code(s): I10 - Essential (primary) hypertension (4) PVD (peripheral vascular disease) Code(s): I73.9 - PERIPHERAL VASCULAR DISEASE, UNSPECIFIED plan will hold off on starting any abx if patient spikes fever then will initiate abx close monitoring for chills wound care rest as per the team
[2018-10-30] MEDS ORDERED: ACETAMINOPHEN 325 MG TABLET (FP) PO PRN (17:27)
[2018-10-30 17:40] LABS: BASO % 0.6 % (0-2.0); EOS % 0.2 % (0-4.5); HEMATOCRIT 35.9 % (35.4-49); HEMOGLOBIN 12.1 GM/dL (11.7-16.9); LYMPH % 18.9 % (8-40); MCH 24.9 pg (25.7-33.7); MCHC 33.6 g/dl (32.0-35.9); MEAN PLT VOLUME 8.7 fl (7.5-11.1); MONO % 8.4 % (3.8-10.2); NEUT % 71.9 % (42.8-82.8); PLATELET COUNT 237 K/MM3 (134-434); RBC 4.85 M/mm3 (4.00-5.60); RDW 16.6 % (11.9-15.9); WHITE BLOOD COUNT 11.2 K/mm3 (4.0-10.0)
[2018-10-30 18:17] LABS: ANION GAP 8 MMOL/L (8-16); BLOOD UREA NITROGEN 21 mg/dL (7-18); CALCIUM 8.8 mg/dL (8.5-10.1); CHLORIDE 103 mmol/L (98-107); CO2 26 mmol/L (21-32); CREATININE 1.3 mg/dL (0.55-1.3); GLUCOSE,RANDOM 195 mg/dL (74-106); SODIUM 137 mmol/L (136-145)
--- NOTE | 2018-10-30 18:51 | PN ---
Progress Note, Physician Chief Complaint: No new complaints, low grade fever - Current Medication List Current Medications: Active Medications Acetaminophen (Tylenol -) 650 mg PO Q8H PRN PRN Reason: TEMPERATURE OVER 100 Amlodipine Besylate (Norvasc -) 10 mg PO DAILY [facility] Brimonidine Tartrate (Alphagan P 0.1% -) 1 drop OU BID [facility] Gabapentin (Neurontin -) 300 mg PO BID [facility] Heparin Sodium (Porcine) (Heparin -) 5,000 unit SQ BID [facility] Ibuprofen (Caldolor Injection -) 400 mg IVPB Q6H PRN PRN Reason: FEVER Insulin Detemir (Levemir Vial) 27 units SQ 0700,2200 [facility] Memantine (Namenda -) 10 mg PO BID [facility] Metformin HCl (Glucophage -) 500 mg PO BIDAC [facility] Last Admin: 10/30/18 17:34 Dose: 500 mg Metoprolol Succinate (Toprol Xl -) 100 mg PO DAILY [facility] Mirtazapine (Remeron -) 15 mg PO HS [facility] Morphine Sulfate (Morphine Sulfate) 2 mg IVPUSH Q6H PRN PRN Reason: PAIN LEVEL 6-10 Stop: 11/02/18 14:14 Non-Formulary Medication (Donepezil Hcl [Aricept]) 23 mg PO DAILY [facility] Tamsulosin HCl (Flomax -) 0.4 mg PO 0830 [facility] Valsartan (Diovan -) 160 mg PO BID [facility] - Objective Vital Signs: Vital Signs Temperature 100.9 F H 10/30/18 15:33 Pulse Rate 70 10/30/18 15:33 Respiratory Rate 18 10/30/18 15:33 Blood Pressure 174/75 H 10/30/18 15:33 O2 Sat by Pulse Oximetry (%) 97 10/29/18 20:22 Elderly man comfortable not in distress HEENT: Mm moist, no anemia, PERRLA EOMI NECK: No JVd No Bruit CHEST: CTA B/L CVS: S1S2 R ABD: No distention non tender Bs + EXT: SP Rt Foot toes amputation, wound in dressing IMPLEMENTATION ADVISOR: AOX3 Labs: CBC, BMP 10/30/18 17:10 10/30/18 17:10 Problem List - Problems (1) Gangrene of right foot Assessment/Plan: S/P surgery no indication for abx low grade fever Code(s): I96 - GANGRENE, NOT ELSEWHERE CLASSIFIED (2) Diabetes mellitus Assessment/Plan: Cont current med optimize Gycemic control Code(s): E11.9 - TYPE 2 DIABETES MELLITUS WITHOUT COMPLICATIONS Qualifiers: Diabetes mellitus type: other specified (including HOMAR) Diabetes mellitus exterminator termite insulin use: unspecified exterminator termite insulin use status Diabetes mellitus complication status: with skin complications Diabetes mellitus complication detail: with foot ulcer Qualified Code(s): E13.621 - Other specified diabetes mellitus with foot ulcer; L97.509 - Non-pressure chronic ulcer of other part of unspecified foot with unspecified severity (3) HTN (hypertension) Assessment/Plan: Cont home meds Code(s): I10 - ESSENTIAL (PRIMARY) HYPERTENSION Qualifiers: Hypertension type: essential hypertension Qualified Code(s): I10 - Essential (primary) hypertension (4) PVD (peripheral vascular disease) Assessment/Plan: Chronic SS/p amputation of toes Code(s): I73.9 - PERIPHERAL VASCULAR DISEASE, UNSPECIFIED (5) Dementia Assessment/Plan: Cont Home meds Code(s): F03.90 - UNSPECIFIED DEMENTIA WITHOUT BEHAVIORAL DISTURBANCE
[2018-10-30] MEDS ORDERED: INSULIN (NOVOLOG) ASPART 100 UNITS/ML 10ML VIAL ONE (21:01)
[2018-10-30] MEDS ORDERED: PIPERACILLIN/TAZOB 3.375 GM 3.375 GM in DEXTROSE 5%-WATER - 50 ML IVPB SCH (21:15)
[2018-10-30] MEDS: HEPARIN NA (PORCINE) 5,000 UNITS/ML 1ML VIAL SQ SCH (21:34)
[2018-10-30] MEDS: GABAPENTIN 300 MG CAPSULE (FP) PO SCH (21:35)
[2018-10-30] MEDS: MEMANTINE HCL 10 MG TABLET (FP) PO SCH (21:35)
[2018-10-30] MEDS: MIRTAZAPINE 15 MG TABLET (FP) PO SCH (21:35)
[2018-10-30] MEDS: INSULIN (LEVEMIR) 100 UNITS/ML UNITS SQ SCH (21:35)
[2018-10-30] MEDS: VALSARTAN 160 MG TABLET (UD) PO SCH (21:35)
[2018-10-30] MEDS ORDERED: PT OWN MED DRAWER 7, Y5N ONE (22:30)
[2018-10-30] MEDS: BRIMONIDINE TARTRATE 0.1% OPHTHALMIC 5 ML BOTTLE OU SCH (22:31)
[2018-10-31] MEDS: INSULIN (LEVEMIR) 100 UNITS/ML UNITS SQ SCH ×2 (06:21→21:24)
[2018-10-31] MEDS: metFORMIN HCL 500 MG TABLET (FP) PO SCH ×2 (06:21→17:40)
[2018-10-31] MEDS ORDERED: INSULIN (NOVOLOG) ASPART 100 UNITS/ML 10ML VIAL ONE (06:49)
[2018-10-31] MEDS ORDERED: PT OWN MED DRAWER 7, Y5N ONE ×4 (06:49→21:12)
[2018-10-31 08:19] LABS: BASO % 0.6 % (0-2.0); EOS % 0.9 % (0-4.5); HEMATOCRIT 34.3 % (35.4-49); HEMOGLOBIN 11.5 GM/dL (11.7-16.9); LYMPH % 20.9 % (8-40); MCH 25.1 pg (25.7-33.7); MCHC 33.6 g/dl (32.0-35.9); MEAN CELL VOLUME 74.7 fl (80-96); MEAN PLT VOLUME 8.9 fl (7.5-11.1); MONO % 13.1 % (3.8-10.2); NEUT % 64.5 % (42.8-82.8); PLATELET COUNT 212 K/MM3 (134-434); RBC 4.59 M/mm3 (4.00-5.60); RDW 16.6 % (11.9-15.9); WHITE BLOOD COUNT 10.9 K/mm3 (4.0-10.0)
[2018-10-31] MEDS: TAMSULOSIN HCL 0.4 MG CAP PO SCH (08:37)
[2018-10-31 08:38] LABS: ANION GAP 8 MMOL/L (8-16); BLOOD UREA NITROGEN 17 mg/dL (7-18); CALCIUM 8.3 mg/dL (8.5-10.1); CHLORIDE 106 mmol/L (98-107); CO2 27 mmol/L (21-32); CREATININE 1.3 mg/dL (0.55-1.3); GLUCOSE,RANDOM 135 mg/dL (74-106); POTASSIUM 3.8 mmol/L (3.5-5.1); SODIUM 141 mmol/L (136-145)
[2018-10-31] MEDS: BRIMONIDINE TARTRATE 0.1% OPHTHALMIC 5 ML BOTTLE OU SCH ×2 (10:54→21:24)
[2018-10-31] MEDS: MEMANTINE HCL 10 MG TABLET (FP) PO SCH ×2 (10:55→21:24)
[2018-10-31] MEDS: GABAPENTIN 300 MG CAPSULE (FP) PO SCH ×2 (10:55→21:25)
[2018-10-31] MEDS: amLODIPine BESYLATE 10 MG TABLET (FP) PO SCH (10:55)
[2018-10-31] MEDS: HEPARIN NA (PORCINE) 5,000 UNITS/ML 1ML VIAL SQ SCH ×2 (10:55→21:24)
[2018-10-31] MEDS: VALSARTAN 160 MG TABLET (UD) PO SCH ×2 (10:55→21:24)
--- NOTE | 2018-10-31 13:26 | PN ---
Progress Note, Physician Chief Complaint: No new complaints, low grade fever resolved - Current Medication List Current Medications: Active Medications Acetaminophen (Tylenol -) 650 mg PO Q8H PRN PRN Reason: TEMPERATURE OVER 100 Amlodipine Besylate (Norvasc -) 10 mg PO DAILY [facility] Last Admin: 10/31/18 10:55 Dose: 10 mg Brimonidine Tartrate (Alphagan P 0.1% -) 1 drop OU BID [facility] Last Admin: 10/31/18 10:54 Dose: 1 drop Gabapentin (Neurontin -) 300 mg PO BID [facility] Last Admin: 10/31/18 10:55 Dose: 300 mg Heparin Sodium (Porcine) (Heparin -) 5,000 unit SQ BID [facility] Last Admin: 10/31/18 10:55 Dose: 5,000 unit Ibuprofen (Caldolor Injection -) 400 mg IVPB Q6H PRN PRN Reason: FEVER Insulin Detemir (Levemir Vial) 27 units SQ 0700,2200 [facility] Last Admin: 10/31/18 06:21 Dose: 27 units Memantine (Namenda -) 10 mg PO BID [facility] Last Admin: 10/31/18 10:55 Dose: 10 mg Metformin HCl (Glucophage -) 500 mg PO BIDAC [facility] Last Admin: 10/31/18 06:21 Dose: 500 mg Metoprolol Succinate (Toprol Xl -) 100 mg PO DAILY [facility] Last Admin: 10/31/18 10:55 Dose: 100 mg Mirtazapine (Remeron -) 15 mg PO HS [facility] Last Admin: 10/30/18 21:35 Dose: 15 mg Morphine Sulfate (Morphine Sulfate) 2 mg IVPUSH Q6H PRN PRN Reason: PAIN LEVEL 6-10 Stop: 11/02/18 14:14 Non-Formulary Medication (Donepezil Hcl [Aricept]) 23 mg PO DAILY [facility] Tamsulosin HCl (Flomax -) 0.4 mg PO 0830 [facility] Last Admin: 10/31/18 08:37 Dose: 0.4 mg Valsartan (Diovan -) 160 mg PO BID [facility] Last Admin: 10/31/18 10:55 Dose: 160 mg - Objective Vital Signs: Vital Signs Temperature 98.3 F 10/31/18 10:00 Pulse Rate 60 10/31/18 10:00 Respiratory Rate 20 10/31/18 10:00 Blood Pressure 153/72 10/31/18 10:00 O2 Sat by Pulse Oximetry (%) 97 10/30/18 22:00 Elderly man comfortable not in distress HEENT: Mm moist, no anemia, PERRLA EOMI NECK: No JVd No Bruit CHEST: CTA B/L CVS: S1S2 R ABD: No distention non tender Bs + EXT: S/P RT Foot toes amputation, wound in dressing BUS OR TRUCK GARAGE MECHANIC: AOX3 non focal Labs: CBC, BMP 10/31/18 07:30 10/31/18 07:15 Problem List - Problems (1) Gangrene of right foot Assessment/Plan: S/P surgery no indication for abx low grade fever Code(s): I96 - GANGRENE, NOT ELSEWHERE CLASSIFIED (2) Diabetes mellitus Assessment/Plan: Cont current med optimize Gycemic control Code(s): E11.9 - TYPE 2 DIABETES MELLITUS WITHOUT COMPLICATIONS Qualifiers: Diabetes mellitus type: other specified (including HOMAR) Diabetes mellitus assisted insulin use: unspecified moth exterminator insulin use status Diabetes mellitus complication status: with skin complications Diabetes mellitus complication detail: with foot ulcer Qualified Code(s): E13.621 - Other specified diabetes mellitus with foot ulcer (3) HTN (hypertension) Assessment/Plan: Cont home meds Code(s): I10 - ESSENTIAL (PRIMARY) HYPERTENSION Qualifiers: Hypertension type: essential hypertension Qualified Code(s): I10 - Essential (primary) hypertension (4) PVD (peripheral vascular disease) Assessment/Plan: Chronic SS/p amputation of toes Code(s): I73.9 - PERIPHERAL VASCULAR DISEASE, UNSPECIFIED (5) Dementia Assessment/Plan: Cont Home meds Code(s): F03.90 - UNSPECIFIED DEMENTIA WITHOUT BEHAVIORAL DISTURBANCE
--- NOTE | 2018-10-31 13:39 | PN ---
Progress Note, Physician History of Present Illness: Events noted. Pt states he feels well. Afebrile since yesterday. No specific complaints at this time. - Current Medication List Current Medications: Active Medications Acetaminophen (Tylenol -) 650 mg PO Q8H PRN PRN Reason: TEMPERATURE OVER 100 Amlodipine Besylate (Norvasc -) 10 mg PO DAILY [facility] Last Admin: 10/31/18 10:55 Dose: 10 mg Brimonidine Tartrate (Alphagan P 0.1% -) 1 drop OU BID [facility] Last Admin: 10/31/18 10:54 Dose: 1 drop Gabapentin (Neurontin -) 300 mg PO BID [facility] Last Admin: 10/31/18 10:55 Dose: 300 mg Heparin Sodium (Porcine) (Heparin -) 5,000 unit SQ BID [facility] Last Admin: 10/31/18 10:55 Dose: 5,000 unit Ibuprofen (Caldolor Injection -) 400 mg IVPB Q6H PRN PRN Reason: FEVER Insulin Detemir (Levemir Vial) 27 units SQ 0700,2200 [facility] Last Admin: 10/31/18 06:21 Dose: 27 units Memantine (Namenda -) 10 mg PO BID [facility] Last Admin: 10/31/18 10:55 Dose: 10 mg Metformin HCl (Glucophage -) 500 mg PO BIDAC [facility] Last Admin: 10/31/18 06:21 Dose: 500 mg Metoprolol Succinate (Toprol Xl -) 100 mg PO DAILY [facility] Last Admin: 10/31/18 10:55 Dose: 100 mg Mirtazapine (Remeron -) 15 mg PO HS [facility] Last Admin: 10/30/18 21:35 Dose: 15 mg Morphine Sulfate (Morphine Sulfate) 2 mg IVPUSH Q6H PRN PRN Reason: PAIN LEVEL 6-10 Stop: 11/02/18 14:14 Non-Formulary Medication (Donepezil Hcl [Aricept]) 23 mg PO DAILY [facility] Tamsulosin HCl (Flomax -) 0.4 mg PO 0830 [facility] Last Admin: 10/31/18 08:37 Dose: 0.4 mg Valsartan (Diovan -) 160 mg PO BID [facility] Last Admin: 10/31/18 10:55 Dose: 160 mg - Objective Vital Signs: Vital Signs Temperature 99.1 F 10/31/18 13:33 Pulse Rate 62 10/31/18 13:33 Respiratory Rate 20 10/31/18 10:00 Blood Pressure 130/57 L 10/31/18 13:33 O2 Sat by Pulse Oximetry (%) 97 10/30/18 22:00 Constitutional: Yes: No Distress, Calm Cardiovascular: Yes: Regular Rate and Rhythm Respiratory: Yes: Regular Gastrointestinal: Yes: Normal Bowel Sounds, Soft Genitourinary: Yes: WNL Wound/Incision: Yes: Other (Rt foot TMA, dressing intact) Psychiatric: Yes: Alert Labs: CBC, BMP 10/31/18 07:30 10/31/18 07:15 Problem List - Problems (1) Gangrene of right foot Code(s): I96 - GANGRENE, NOT ELSEWHERE CLASSIFIED (2) Acute kidney injury superimposed on CKD Code(s): N17.9 - ACUTE KIDNEY FAILURE, UNSPECIFIED; N18.9 - CHRONIC KIDNEY DISEASE, UNSPECIFIED (3) Dementia Code(s): F03.90 - UNSPECIFIED DEMENTIA WITHOUT BEHAVIORAL DISTURBANCE (4) Diabetes mellitus Code(s): E11.9 - TYPE 2 DIABETES MELLITUS WITHOUT COMPLICATIONS Qualifiers: Diabetes mellitus type: other specified (including HOMAR) Diabetes mellitus termite inspector insulin use: unspecified termite inspector insulin use status Diabetes mellitus complication status: with skin complications Diabetes mellitus complication detail: with foot ulcer Qualified Code(s): E13.621 - Other specified diabetes mellitus with foot ulcer; L97.509 - Non-pressure chronic ulcer of other part of unspecified foot with unspecified severity (5) Fever Code(s): R50.9 - FEVER, UNSPECIFIED Qualifiers: Fever type: post-procedural Qualified Code(s): R50.82 - Postprocedural fever (6) HTN (hypertension) Code(s): I10 - ESSENTIAL (PRIMARY) HYPERTENSION Qualifiers: Hypertension type: essential hypertension Qualified Code(s): I10 - Essential (primary) hypertension (7) PVD (peripheral vascular disease) Code(s): I73.9 - PERIPHERAL VASCULAR DISEASE, UNSPECIFIED (8) T2DM (type 2 diabetes mellitus) Code(s): E11.9 - TYPE 2 DIABETES MELLITUS WITHOUT COMPLICATIONS Qualifiers: Diabetes mellitus complication status: with circulatory complication Diabetes mellitus complication detail: with peripheral angiopathy with gangrene Assessment/Plan Rt foot gangrene s/p TMA Fever DM PVD -- Pt is afebrile off of antibiotics since yesterday -- continue monitor -- cont. wound care
[2018-10-31] MEDS: DONEPEZIL HCL PO SCH (18:39)
[2018-10-31] MEDS: MIRTAZAPINE 15 MG TABLET (FP) PO SCH (21:25)
[2018-11-01] MEDS: INSULIN (LEVEMIR) 100 UNITS/ML UNITS SQ SCH ×2 (06:13→22:02)
[2018-11-01] MEDS: metFORMIN HCL 500 MG TABLET (FP) PO SCH ×2 (06:13→17:19)
[2018-11-01 07:07] LABS: BASO % 0.6 % (0-2.0); EOS % 2.8 % (0-4.5); HEMATOCRIT 36.1 % (35.4-49); HEMOGLOBIN 12.2 GM/dL (11.7-16.9); LYMPH % 25.5 % (8-40); MCH 25.1 pg (25.7-33.7); MCHC 33.7 g/dl (32.0-35.9); MEAN CELL VOLUME 74.3 fl (80-96); MEAN PLT VOLUME 8.8 fl (7.5-11.1); MONO % 10.2 % (3.8-10.2); NEUT % 60.9 % (42.8-82.8); PLATELET COUNT 212 K/MM3 (134-434); RBC 4.86 M/mm3 (4.00-5.60); RDW 16.9 % (11.9-15.9); WHITE BLOOD COUNT 11.9 K/mm3 (4.0-10.0)
[2018-11-01 07:42] LABS: ANION GAP 8 MMOL/L (8-16); BLOOD UREA NITROGEN 26 mg/dL (7-18); CALCIUM 9.1 mg/dL (8.5-10.1); CHLORIDE 105 mmol/L (98-107); CO2 28 mmol/L (21-32); CREATININE 1.3 mg/dL (0.55-1.3); GLUCOSE,RANDOM 85 mg/dL (74-106); POTASSIUM 3.7 mmol/L (3.5-5.1); SODIUM 142 mmol/L (136-145)
[2018-11-01] MEDS: TAMSULOSIN HCL 0.4 MG CAP PO SCH (08:46)
[2018-11-01] MEDS ORDERED: PT OWN MED DRAWER 7, Y5N ONE ×3 (09:05→21:24)
[2018-11-01] MEDS: HEPARIN NA (PORCINE) 5,000 UNITS/ML 1ML VIAL SQ SCH ×2 (09:08→22:02)
[2018-11-01] MEDS: BRIMONIDINE TARTRATE 0.1% OPHTHALMIC 5 ML BOTTLE OU SCH ×2 (09:08→22:01)
[2018-11-01] MEDS: DONEPEZIL HCL PO SCH (09:08)
[2018-11-01] MEDS: amLODIPine BESYLATE 10 MG TABLET (FP) PO SCH (09:09)
[2018-11-01] MEDS: MEMANTINE HCL 10 MG TABLET (FP) PO SCH ×2 (09:09→22:02)
[2018-11-01] MEDS: GABAPENTIN 300 MG CAPSULE (FP) PO SCH ×2 (09:09→22:02)
[2018-11-01] MEDS: VALSARTAN 160 MG TABLET (UD) PO SCH ×2 (09:10→22:01)
--- NOTE | 2018-11-01 11:50 | PN ---
Progress Note (short form) - Note Progress Note: pod# 3 no pain. present. vss, tmax 99.1 +sutures intact right, -dehiscence, -drainage, -tender right, wbc=11.9, no clinical signs of infection +grade 2 wound left heel, -drainage, -mal odor, normal post op dressing change done. betadine dressing applied right. santyl to left heel. would continue abx for 2 weeks. CBC with diff in am. will follow. discussed with vascular. present throughout visit. elevate b/l heels off the bed with pillow under calf not touching heels.
[2018-11-01] MEDS: COLLAGENASE CLOSTRIDIUM HIST. 30 GRAMS TUBE TP SCH (13:29)
--- NOTE | 2018-11-01 13:45 | PN ---
Progress Note, Physician History of Present Illness: Pt with fever 101.6F last night. He is alert, without distress. Denies shortness of breath, cough, abd pain/n/v/d, dysuria. - Current Medication List Current Medications: Active Medications Acetaminophen (Tylenol -) 650 mg PO Q8H PRN PRN Reason: TEMPERATURE OVER 100 Last Admin: 10/31/18 21:25 Dose: 650 mg Amlodipine Besylate (Norvasc -) 10 mg PO DAILY [facility] Last Admin: 11/01/18 09:09 Dose: 10 mg Brimonidine Tartrate (Alphagan P 0.1% -) 1 drop OU BID [facility] Last Admin: 11/01/18 09:08 Dose: 1 drop Collagenase (Santyl -) 1 applic TP DAILY [facility]; Protocol Gabapentin (Neurontin -) 300 mg PO BID [facility] Last Admin: 11/01/18 09:09 Dose: 300 mg Heparin Sodium (Porcine) (Heparin -) 5,000 unit SQ BID [facility] Last Admin: 11/01/18 09:08 Dose: 5,000 unit Ibuprofen (Caldolor Injection -) 400 mg IVPB Q6H PRN PRN Reason: FEVER Insulin Detemir (Levemir Vial) 27 units SQ 0700,2200 [facility] Last Admin: 11/01/18 06:13 Dose: 27 units Memantine (Namenda -) 10 mg PO BID [facility] Last Admin: 11/01/18 09:09 Dose: 10 mg Metformin HCl (Glucophage -) 500 mg PO BIDAC [facility] Last Admin: 11/01/18 06:13 Dose: 500 mg Metoprolol Succinate (Toprol Xl -) 100 mg PO DAILY [facility] Last Admin: 11/01/18 09:09 Dose: 100 mg Mirtazapine (Remeron -) 15 mg PO HS [facility] Last Admin: 10/31/18 21:25 Dose: 15 mg Morphine Sulfate (Morphine Sulfate) 2 mg IVPUSH Q6H PRN PRN Reason: PAIN LEVEL 6-10 Stop: 11/02/18 14:14 Non-Formulary Medication (Donepezil Hcl [Aricept]) 0 mg PO DAILY [facility] Last Admin: 11/01/18 09:08 Dose: 23 mg Tamsulosin HCl (Flomax -) 0.4 mg PO 0830 [facility] Last Admin: 11/01/18 08:46 Dose: 0.4 mg Valsartan (Diovan -) 160 mg PO BID [facility] Last Admin: 11/01/18 09:10 Dose: 160 mg - Objective Vital Signs: Vital Signs Temperature 99.1 F 11/01/18 09:13 Pulse Rate 73 11/01/18 09:13 Respiratory Rate 20 11/01/18 09:13 Blood Pressure 142/60 11/01/18 09:13 O2 Sat by Pulse Oximetry (%) 98 10/31/18 21:00 Constitutional: Yes: No Distress, Calm Cardiovascular: Yes: Regular Rate and Rhythm Respiratory: Yes: Other (poor inspiratory effort, no audible rhonchi/wheeze) Gastrointestinal: Yes: Normal Bowel Sounds, Soft Extremities: Yes: Amputation (Rt TMA dressing intact, Lt heel ulcer without purulence/malodor) Integumentary: Yes: WNL Neurological: Yes: Alert Labs: CBC, BMP 11/01/18 06:25 11/01/18 06:25 Problem List - Problems (1) Gangrene of right foot Code(s): I96 - GANGRENE, NOT ELSEWHERE CLASSIFIED (2) Acute kidney injury superimposed on CKD Code(s): N17.9 - ACUTE KIDNEY FAILURE, UNSPECIFIED; N18.9 - CHRONIC KIDNEY DISEASE, UNSPECIFIED (3) Dementia Code(s): F03.90 - UNSPECIFIED DEMENTIA WITHOUT BEHAVIORAL DISTURBANCE (4) Diabetes mellitus Code(s): E11.9 - TYPE 2 DIABETES MELLITUS WITHOUT COMPLICATIONS Qualifiers: Diabetes mellitus type: other specified (including HOMAR) Diabetes mellitus usp insulin use: unspecified usp insulin use status Diabetes mellitus complication status: with skin complications Diabetes mellitus complication detail: with foot ulcer Qualified Code(s): E13.621 - Other specified diabetes mellitus with foot ulcer; L97.509 - Non-pressure chronic ulcer of other part of unspecified foot with unspecified severity (5) Fever Code(s): R50.9 - FEVER, UNSPECIFIED Qualifiers: Fever type: post-procedural Qualified Code(s): R50.82 - Postprocedural fever (6) HTN (hypertension) Code(s): I10 - ESSENTIAL (PRIMARY) HYPERTENSION Qualifiers: Hypertension type: essential hypertension Qualified Code(s): I10 - Essential (primary) hypertension (7) PVD (peripheral vascular disease) Code(s): I73.9 - PERIPHERAL VASCULAR DISEASE, UNSPECIFIED (8) T2DM (type 2 diabetes mellitus) Code(s): E11.9 - TYPE 2 DIABETES MELLITUS WITHOUT COMPLICATIONS Qualifiers: Diabetes mellitus complication status: with circulatory complication Diabetes mellitus complication detail: with peripheral angiopathy with gangrene Assessment/Plan Fever Rt foot gangrene s/p TMA DM PVD -- Fever 101.6F noted last night, pt without distress -- Suggest Blood cultures, u/a, CXR -- Repeat cbc/bmp in a.m. -- will start antibiotics empirically for now -- Cont. wound care -- Podiatry following, Xray ordered for Lt heel ulcer
[2018-11-01] MEDS ORDERED: VANCOMYCIN 1 GRAM (PRE-DOCKED) 1,000 MG/250 ML BAG IVPB ONE (14:00)
[2018-11-01] MEDS ORDERED: PIPERACILLIN/TAZOBACTAM 3.375 GM VIAL IVPB ONE (14:54)
[2018-11-01] MEDS: PIPERACILLIN/TAZOB 3.375 GM 3.375 GM in DEXTROSE 5%-WATER - 50 ML IVPB SCH ×2 (15:49→17:20)
--- NOTE | 2018-11-01 17:07 | PN ---
Progress Note, Physician Chief Complaint: No new complaints, Spiked fever last night - Current Medication List Current Medications: Active Medications Acetaminophen (Tylenol -) 650 mg PO Q8H PRN PRN Reason: TEMPERATURE OVER 100 Last Admin: 10/31/18 21:25 Dose: 650 mg Amlodipine Besylate (Norvasc -) 10 mg PO DAILY [facility] Last Admin: 11/01/18 09:09 Dose: 10 mg Brimonidine Tartrate (Alphagan P 0.1% -) 1 drop OU BID [facility] Last Admin: 11/01/18 09:08 Dose: 1 drop Collagenase (Santyl -) 1 applic TP DAILY [facility]; Protocol Last Admin: 11/01/18 13:29 Dose: 1 applic Gabapentin (Neurontin -) 300 mg PO BID [facility] Last Admin: 11/01/18 09:09 Dose: 300 mg Heparin Sodium (Porcine) (Heparin -) 5,000 unit SQ BID [facility] Last Admin: 11/01/18 09:08 Dose: 5,000 unit Piperacillin Sod/Tazobactam (Sod 3.375 gm/ Dextrose) 50 mls @ 100 mls/hr IVPB Q8H-IV [facility]; Protocol Last Admin: 11/01/18 15:49 Dose: 100 mls/hr Vancomycin HCl 1,250 mg/ (Dextrose) 250 mls @ 166.667 mls/hr IVPB Q24H [facility]; Protocol Ibuprofen (Caldolor Injection -) 400 mg IVPB Q6H PRN PRN Reason: FEVER Insulin Detemir (Levemir Vial) 27 units SQ 0700,2200 [facility] Last Admin: 11/01/18 06:13 Dose: 27 units Memantine (Namenda -) 10 mg PO BID [facility] Last Admin: 11/01/18 09:09 Dose: 10 mg Metformin HCl (Glucophage -) 500 mg PO BIDAC [facility] Last Admin: 11/01/18 06:13 Dose: 500 mg Metoprolol Succinate (Toprol Xl -) 100 mg PO DAILY [facility] Last Admin: 11/01/18 09:09 Dose: 100 mg Mirtazapine (Remeron -) 15 mg PO HS [facility] Last Admin: 10/31/18 21:25 Dose: 15 mg Morphine Sulfate (Morphine Sulfate) 2 mg IVPUSH Q6H PRN PRN Reason: PAIN LEVEL 6-10 Stop: 11/02/18 14:14 Non-Formulary Medication (Donepezil Hcl [Aricept]) 0 mg PO DAILY [facility] Last Admin: 11/01/18 09:08 Dose: 23 mg Tamsulosin HCl (Flomax -) 0.4 mg PO 0830 [facility] Last Admin: 11/01/18 08:46 Dose: 0.4 mg Valsartan (Diovan -) 160 mg PO BID [facility] Last Admin: 11/01/18 09:10 Dose: 160 mg - Objective Vital Signs: Vital Signs Temperature 98.7 F 11/01/18 13:42 Pulse Rate 71 11/01/18 13:42 Respiratory Rate 11/01/18 09:13 Blood Pressure 135/65 11/01/18 13:42 O2 Sat by Pulse Oximetry (%) 98 10/31/18 21:00 Elderly man comfortable not in distress HEENT: Mm moist, no anemia, PERRLA EOMI NECK: No JVd No Bruit CHEST: CTA B/L CVS: S1S2 R ABD: No distention non tender Bs + EXT: S/P RT Foot toes amputation, wound in dressing ART APPRAISER: AOX3 non focal Labs: CBC, BMP 11/01/18 06:25 11/01/18 06:25 Problem List - Problems (1) Gangrene of right foot Assessment/Plan: S/P surgery spiked fever 101 last night TWBC rising on IV Vancomycin and Zosyn Code(s): I96 - GANGRENE, NOT ELSEWHERE CLASSIFIED (2) Diabetes mellitus Assessment/Plan: Cont current med optimize Gycemic control Code(s): E11.9 - TYPE 2 DIABETES MELLITUS WITHOUT COMPLICATIONS Qualifiers: Diabetes mellitus type: other specified (including HOMAR) Diabetes mellitus penitentiary insulin use: unspecified penitentiary insulin use status Diabetes mellitus complication status: with skin complications Diabetes mellitus complication detail: with foot ulcer Qualified Code(s): E13.621 - Other specified diabetes mellitus with foot ulcer; L97.509 - Non-pressure chronic ulcer of other part of unspecified foot with unspecified severity (3) HTN (hypertension) Qualifiers: Hypertension type: essential hypertension Qualified Code(s): I10 - Essential (primary) hypertension (4) PVD (peripheral vascular disease) Assessment/Plan: Chronic SS/p amputation of toes Code(s): I73.9 - PERIPHERAL VASCULAR DISEASE, UNSPECIFIED (5) Dementia Assessment/Plan: Cont Home meds Code(s): F03.90 - UNSPECIFIED DEMENTIA WITHOUT BEHAVIORAL DISTURBANCE
[2018-11-01] MEDS: MIRTAZAPINE 15 MG TABLET (FP) PO SCH (22:02)
[2018-11-01 22:29] LABS: URINE APPEARANCE CLEAR; URINE BILIRUBIN NEGATIVE (<2.0 mg/dL); URINE COLOR YELLOW; URINE GLUCOSE (UA) NEGATIVE (NEGATIVE); URINE KETONE NEGATIVE (NEGATIVE); URINE LEUK ESTERASE NEGATIVE (NEGATIVE); URINE NITRITE NEGATIVE (NEGATIVE); URINE PROTEIN 1+ (NEGATIVE); URINE UROBILINOGEN NEGATIVE mg/dL (0.2-1.0)
[2018-11-01 22:31] LABS: EPI CELLS RARE /HPF (FEW); URINE BACTERIA RARE /hpf (NONE SEEN); URINE HYALINE CAST 1 /lpf; URINE MUCUS RARE
[2018-11-02] MEDS ORDERED: DEXTROSE 5%-WATER - 50 ML IVPB ONE ×3 (01:26→17:37)
[2018-11-02] MEDS ORDERED: PIPERACILLIN/TAZOBACTAM 3.375 GM VIAL IVPB ONE ×3 (01:26→17:37)
[2018-11-02] MEDS: PIPERACILLIN/TAZOB 3.375 GM 3.375 GM in DEXTROSE 5%-WATER - 50 ML IVPB SCH ×3 (01:49→17:39)
[2018-11-02] MEDS: metFORMIN HCL 500 MG TABLET (FP) PO SCH ×2 (06:28→16:10)
[2018-11-02] MEDS: INSULIN (LEVEMIR) 100 UNITS/ML UNITS SQ SCH ×2 (06:28→22:20)
[2018-11-02 07:33] LABS: BASO % 0.8 % (0-2.0); EOS % 2.7 % (0-4.5); HEMATOCRIT 31.9 % (35.4-49); HEMOGLOBIN 10.9 GM/dL (11.7-16.9); LYMPH % 19.6 % (8-40); MCH 25.5 pg (25.7-33.7); MCHC 34.1 g/dl (32.0-35.9); MEAN CELL VOLUME 74.7 fl (80-96); MEAN PLT VOLUME 8.4 fl (7.5-11.1); MONO % 10.5 % (3.8-10.2); NEUT % 66.4 % (42.8-82.8); PLATELET COUNT 225 K/MM3 (134-434); RBC 4.27 M/mm3 (4.00-5.60); RDW 16.2 % (11.9-15.9); WHITE BLOOD COUNT 8.9 K/mm3 (4.0-10.0)
[2018-11-02 08:02] LABS: ANION GAP 7 MMOL/L (8-16); BLOOD UREA NITROGEN 21 mg/dL (7-18); CALCIUM 8.4 mg/dL (8.5-10.1); CHLORIDE 106 mmol/L (98-107); CO2 28 mmol/L (21-32); CREATININE 1.3 mg/dL (0.55-1.3); GLUCOSE,RANDOM 82 mg/dL (74-106); POTASSIUM 3.6 mmol/L (3.5-5.1); SODIUM 142 mmol/L (136-145)
[2018-11-02] MEDS: VALSARTAN 160 MG TABLET (UD) PO SCH ×2 (09:44→22:20)
[2018-11-02] MEDS: HEPARIN NA (PORCINE) 5,000 UNITS/ML 1ML VIAL SQ SCH ×2 (09:44→22:20)
[2018-11-02] MEDS: amLODIPine BESYLATE 10 MG TABLET (FP) PO SCH (09:44)
[2018-11-02] MEDS: DONEPEZIL HCL PO SCH (09:44)
[2018-11-02] MEDS: TAMSULOSIN HCL 0.4 MG CAP PO SCH (09:44)
[2018-11-02] MEDS: GABAPENTIN 300 MG CAPSULE (FP) PO SCH ×2 (09:44→22:20)
[2018-11-02] MEDS: BRIMONIDINE TARTRATE 0.1% OPHTHALMIC 5 ML BOTTLE OU SCH ×2 (09:45→22:22)
[2018-11-02] MEDS: MEMANTINE HCL 10 MG TABLET (FP) PO SCH ×2 (09:45→22:20)
[2018-11-02] MEDS: COLLAGENASE CLOSTRIDIUM HIST. 30 GRAMS TUBE TP SCH (09:46)
--- NOTE | 2018-11-02 11:06 | PN ---
Progress Note (short form) - Note Progress Note: pod# 4 no pain. vss, tmax 98.7 +sutures intact right, -dehiscence, -drainage, -tender right, wbc=8.9, no clinical signs of infection +grade 2 wound left heel, -drainage, -mal odor, normal post op dressing change done. betadine dressing applied right. santyl to left heel. would continue abx for 2 weeks. Discussed with vascular foot not source of infection. Elevate b/l heels off the bed with pillow under calf not touching heels. Patient may go home from Podiatry standpoint if WBC stays normal and medicine on board.
[2018-11-02] MEDS ORDERED: ONDANSETRON 4 MG/2 ML VIAL IVPUSH PRN (11:49)
--- NOTE | 2018-11-02 11:49 | PN ---
Progress Note, Physician Chief Complaint: c/o nausea - Current Medication List Current Medications: Active Medications Acetaminophen (Tylenol -) 650 mg PO Q8H PRN PRN Reason: TEMPERATURE OVER 100 Last Admin: 10/31/18 21:25 Dose: 650 mg Amlodipine Besylate (Norvasc -) 10 mg PO DAILY [facility] Last Admin: 11/02/18 09:44 Dose: 10 mg Brimonidine Tartrate (Alphagan P 0.1% -) 1 drop OU BID [facility] Last Admin: 11/02/18 09:45 Dose: 1 drop Collagenase (Santyl -) 1 applic TP DAILY [facility]; Protocol Last Admin: 11/02/18 09:46 Dose: Not Given Gabapentin (Neurontin -) 300 mg PO BID [facility] Last Admin: 11/02/18 09:44 Dose: 300 mg Heparin Sodium (Porcine) (Heparin -) 5,000 unit SQ BID [facility] Last Admin: 11/02/18 09:44 Dose: 5,000 unit Piperacillin Sod/Tazobactam (Sod 3.375 gm/ Dextrose) 50 mls @ 100 mls/hr IVPB Q8H-IV [facility]; Protocol Last Admin: 11/02/18 09:43 Dose: 100 mls/hr Vancomycin HCl 1,250 mg/ (Dextrose) 250 mls @ 166.667 mls/hr IVPB Q24H [facility]; Protocol Ibuprofen (Caldolor Injection -) 400 mg IVPB Q6H PRN PRN Reason: FEVER Insulin Detemir (Levemir Vial) 27 units SQ 0700,2200 [facility] Last Admin: 11/02/18 06:28 Dose: 27 units Memantine (Namenda -) 10 mg PO BID [facility] Last Admin: 11/02/18 09:45 Dose: 10 mg Metformin HCl (Glucophage -) 500 mg PO BIDAC [facility] Last Admin: 11/02/18 06:28 Dose: 500 mg Metoprolol Succinate (Toprol Xl -) 100 mg PO DAILY [facility] Last Admin: 11/02/18 09:44 Dose: 100 mg Mirtazapine (Remeron -) 15 mg PO HS [facility] Last Admin: 11/01/18 22:02 Dose: 15 mg Morphine Sulfate (Morphine Sulfate) 2 mg IVPUSH Q6H PRN PRN Reason: PAIN LEVEL 6-10 Stop: 11/02/18 14:14 Non-Formulary Medication (Donepezil Hcl [Aricept]) 0 mg PO DAILY [facility] Last Admin: 11/02/18 09:44 Dose: 1 mg Tamsulosin HCl (Flomax -) 0.4 mg PO 0830 [facility] Last Admin: 11/02/18 09:44 Dose: 0.4 mg Valsartan (Diovan -) 160 mg PO BID [facility] Last Admin: 11/02/18 09:44 Dose: 160 mg - Objective Vital Signs: Vital Signs Temperature 98.7 F 11/02/18 05:57 Pulse Rate 68 11/02/18 05:57 Respiratory Rate 20 11/02/18 05:57 Blood Pressure 146/64 11/02/18 05:57 O2 Sat by Pulse Oximetry (%) 98 11/01/18 21:00 Elderly man comfortable not in distress HEENT: Mm moist, no anemia, PERRLA EOMI NECK: No JVd No Bruit CHEST: CTA B/L CVS: S1S2 R ABD: No distention non tender Bs + EXT: S/P RT Foot toes amputation, wound in dressing CATALOGUE ILLUSTRATOR: AOX3 non focal Labs: CBC, BMP 11/02/18 07:00 11/02/18 07:00 Problem List - Problems (1) Gangrene of right foot Assessment/Plan: S/P surgery spiked fever 101 last night TWBC rising on IV Vancomycin and Zosyn Code(s): I96 - GANGRENE, NOT ELSEWHERE CLASSIFIED (2) Diabetes mellitus Assessment/Plan: Cont current med optimize Gycemic control Code(s): E11.9 - TYPE 2 DIABETES MELLITUS WITHOUT COMPLICATIONS Qualifiers: Diabetes mellitus type: other specified (including HOMAR) Diabetes mellitus collision repairer insulin use: unspecified senior care insulin use status Diabetes mellitus complication status: with skin complications Diabetes mellitus complication detail: with foot ulcer Qualified Code(s): E13.621 - Other specified diabetes mellitus with foot ulcer; L97.509 - Non-pressure chronic ulcer of other part of unspecified foot with unspecified severity (3) HTN (hypertension) Assessment/Plan: Cont home meds Code(s): I10 - ESSENTIAL (PRIMARY) HYPERTENSION Qualifiers: Hypertension type: essential hypertension Qualified Code(s): I10 - Essential (primary) hypertension (4) PVD (peripheral vascular disease) Assessment/Plan: Chronic SS/p amputation of toes Code(s): I73.9 - PERIPHERAL VASCULAR DISEASE, UNSPECIFIED (5) Dementia Assessment/Plan: Cont Home meds Code(s): F03.90 - UNSPECIFIED DEMENTIA WITHOUT BEHAVIORAL DISTURBANCE (6) Nausea & vomiting Assessment/Plan: Dc Motrin add Zofran PRN and pepcid Code(s): R11.2 - NAUSEA WITH VOMITING, UNSPECIFIED
[2018-11-02] MEDS: FAMOTIDINE 20 MG/50 ML IVPB 20 MG/50 ML MG IVPB SCH ×2 (12:00→22:20)
[2018-11-02] MEDS ORDERED: PT OWN MED DRAWER 7, Y5N ONE ×2 (13:31→22:22)
--- NOTE | 2018-11-02 13:34 | PN ---
Progress Note, Physician History of Present Illness: patient stable today' feels better according to nauseous had some vomiting not hungry - Current Medication List Current Medications: Active Medications Acetaminophen (Tylenol -) 650 mg PO Q8H PRN PRN Reason: TEMPERATURE OVER 100 Last Admin: 10/31/18 21:25 Dose: 650 mg Amlodipine Besylate (Norvasc -) 10 mg PO DAILY [facility] Last Admin: 11/02/18 09:44 Dose: 10 mg Brimonidine Tartrate (Alphagan P 0.1% -) 1 drop OU BID [facility] Last Admin: 11/02/18 09:45 Dose: 1 drop Collagenase (Santyl -) 1 applic TP DAILY [facility]; Protocol Last Admin: 11/02/18 09:46 Dose: Not Given Gabapentin (Neurontin -) 300 mg PO BID [facility] Last Admin: 11/02/18 09:44 Dose: 300 mg Heparin Sodium (Porcine) (Heparin -) 5,000 unit SQ BID [facility] Last Admin: 11/02/18 09:44 Dose: 5,000 unit Piperacillin Sod/Tazobactam (Sod 3.375 gm/ Dextrose) 50 mls @ 100 mls/hr IVPB Q8H-IV [facility]; Protocol Last Admin: 11/02/18 09:43 Dose: 100 mls/hr Vancomycin HCl 1,250 mg/ (Dextrose) 250 mls @ 166.667 mls/hr IVPB Q24H [facility]; Protocol Famotidine/Sodium Chloride (Pepcid 20 Mg Premixed Ivpb -) 20 mg in 50 mls @ 100 mls/hr IVPB BID [facility] Last Admin: 11/02/18 12:00 Dose: 100 mls/hr Insulin Detemir (Levemir Vial) 27 units SQ 0700,2200 [facility] Last Admin: 11/02/18 06:28 Dose: 27 units Memantine (Namenda -) 10 mg PO BID [facility] Last Admin: 11/02/18 09:45 Dose: 10 mg Metformin HCl (Glucophage -) 500 mg PO BIDAC [facility] Last Admin: 11/02/18 06:28 Dose: 500 mg Metoprolol Succinate (Toprol Xl -) 100 mg PO DAILY [facility] Last Admin: 11/02/18 09:44 Dose: 100 mg Mirtazapine (Remeron -) 15 mg PO HS [facility] Last Admin: 11/01/18 22:02 Dose: 15 mg Morphine Sulfate (Morphine Sulfate) 2 mg IVPUSH Q6H PRN PRN Reason: PAIN LEVEL 6-10 Stop: 11/02/18 14:14 Non-Formulary Medication (Donepezil Hcl [Aricept]) 0 mg PO DAILY [facility] Last Admin: 11/02/18 09:44 Dose: 1 mg Ondansetron HCl (Zofran Injection) 4 mg IVPUSH Q6H PRN PRN Reason: NAUSEA Tamsulosin HCl (Flomax -) 0.4 mg PO 0830 [facility] Last Admin: 11/02/18 09:44 Dose: 0.4 mg Valsartan (Diovan -) 160 mg PO BID [facility] Last Admin: 11/02/18 09:44 Dose: 160 mg - Objective Vital Signs: Vital Signs Temperature 98.7 F 11/02/18 10:00 Pulse Rate 64 11/02/18 10:00 Respiratory Rate 20 11/02/18 10:00 Blood Pressure 135/67 11/02/18 10:00 O2 Sat by Pulse Oximetry (%) 97 11/02/18 09:00 Constitutional: Yes: No Distress, Calm Cardiovascular: Yes: S1, S2 Respiratory: Yes: Regular, CTA Bilaterally Gastrointestinal: Yes: Soft, Hypoactive Bowel Sounds Musculoskeletal: Yes: WNL Extremities: Yes: Other Wound/Incision: Yes: Dressing Dry and Intact Neurological: Yes: Alert, Oriented Psychiatric: Yes: Alert, Oriented Labs: CBC, BMP 11/02/18 07:00 11/02/18 07:00 Assessment/Plan Problem List - Problems (1) Gangrene of right foot Code(s): I96 - GANGRENE, NOT ELSEWHERE CLASSIFIED (2) Diabetes mellitus Code(s): E11.9 - TYPE 2 DIABETES MELLITUS WITHOUT COMPLICATIONS Qualifiers: Diabetes mellitus type: other specified (including HOMAR) Diabetes mellitus hydrodynamicist insulin use: unspecified snf insulin use status Diabetes mellitus complication status: with skin complications Diabetes mellitus complication detail: with foot ulcer Qualified Code(s): E13.621 - Other specified diabetes mellitus with foot ulcer (3) HTN (hypertension) Code(s): I10 - ESSENTIAL (PRIMARY) HYPERTENSION Qualifiers: Hypertension type: essential hypertension Qualified Code(s): I10 - Essential (primary) hypertension (4) PVD (peripheral vascular disease) Code(s): I73.9 - PERIPHERAL VASCULAR DISEASE, UNSPECIFIED plan continue current mgmt await for all cx reports to be back wound care once cx are back will deescalte abx rest as per the team
[2018-11-02] MEDS ORDERED: VANCOMYCIN 1,250 MG in DEXTROSE 5%-WATER - 250 ML IVPB SCH (14:00)
--- NOTE | 2018-11-02 15:13 | PN ---
Progress Note (short form) - Note Progress Note: 83yo M s/p Rt TMA, pt seen and examined at bedside. Pt denies any fever, chills , n/v. Denies pain in foot but history of neuropathy. Last Vital Signs Temp Pulse Resp BP Pulse Ox 99.0 F 61 18 146/62 97 11/02/18 14:00 11/02/18 14:00 11/02/18 14:00 11/02/18 14:00 11/02/18 09:00 CBC, BMP 11/02/18 07:00 11/02/18 07:00 PE: Gen: A&O x 3 Resp: breathing comfortably Ext: RLE show clean incision with sutures in place, no erythema, serosanguinous discharge on dressing. minimal swelling Problem List - Problems (1) Gangrene of right foot Assessment/Plan: Plan -continue daily dressing changes -abx as per med/ID -follow up with Dr. Hernandez in outpatient office in 1 week Code(s): I96 - GANGRENE, NOT ELSEWHERE CLASSIFIED
--- NOTE | 2018-11-02 16:09 | PATH ---
Surgical Pathology Report Patient Name: ADELA URIAS [facility]. Rec. #: [id number] /Age/Gender: 1935 (Age: 83) / M Account: [id number] Location: [address] [place] [address]/[facility] Taken: 10/29/2018 Received: 10/30/2018 Reported: 11/02/2018 Physicians: Jey Hernandez Specimen(s) Received [id number] AND 4TH TOES, 2ND, 3RD, AND 5TH AMPUTATION TOES Clinical History Right foot gangrene Final Diagnosis TRANSMETATARSAL FIRST AND FOURTH TOES, SECOND, THIRD, FIFTH TOES, AMPUTATION: HALLUX (1sT) AND SECOND TOE WITH MARKED ACUTE INFLAMMATION AND ASSOCIATED ULCERATION. BONE OF SECOND DIGIT WITH MILD CHRONIC FOCAL ACUTE OSTEOMYELITIS, REACTIVE CHANGES, AND BONE REMODELING. BONE OF HALUX WITH MILD CHRONIC OSTEOMYELITIS, REACTIVE CHANGES, AND BONE REMODELING. REMAINDER OF DIGITS ( 3rd,4th, 5th), BONE, AND SOFT TISSUE MARGINS ARE VIABLE. Electronically Signed Trina Ruelas M.D. Gross Description Received in formalin labeled "transmetatarsal first and fourth toes, second, third and fifth amputation toes," is a 7.0 x 3.5 x 3.2 cm amputated hallux. Also received within the same container is a 7.0 x 5.5 x 2.4 cm transmetatarsal amputation including the second, third, fourth and fifth digits. The epidermal surface of the hallux displays a bah -levine, focally ulcerated lesion possibly involving the skin and soft tissue margin as well as the underlying bone. The second digit also displays a 1.4 x 1.2 cm ulcerated lesion at 1.5 cm from the skin and soft tissue margin. Separately received within the same container are 5 undesignated portions of bone ranging from 1.7 x 1.6 x 1.2 cm to 2.4 x 2.1 x 1.0 cm. Dress Cap Maker sections are submitted in 11 cassettes as follows: 1-bone margin from hallux, following decalcification; 2-skin and soft tissue margin from hallux; 3-hallux lesion with underlying bone, following decalcification; 4-lesion from second digit with underlying bone, following decalcification; 5-skin, soft tissue and bone margin from second digit, following decalcification; 6-skin, soft tissue and bone margin from third digit, following decalcification; 7-skin, soft tissue and bone margin from fourth digit, following decalcification; 8-skin, soft tissue and bone margin from fifth digit, following decalcification; [id number] from separately received portions of bone, following decalcification. DL10/30/2018 saudi10/30/2018
[2018-11-02] MEDS: MIRTAZAPINE 15 MG TABLET (FP) PO SCH (22:20)
[2018-11-03] MEDS ORDERED: PIPERACILLIN/TAZOBACTAM 3.375 GM VIAL IVPB ONE ×3 (02:35→17:32)
[2018-11-03] MEDS: PIPERACILLIN/TAZOB 3.375 GM 3.375 GM in DEXTROSE 5%-WATER - 50 ML IVPB SCH ×3 (02:39→17:34)
[2018-11-03] MEDS: metFORMIN HCL 500 MG TABLET (FP) PO SCH (06:06)
[2018-11-03] MEDS: INSULIN (LEVEMIR) 100 UNITS/ML UNITS SQ SCH ×2 (06:06→21:55)
[2018-11-03 07:58] LABS: BASO % 0.5 % (0-2.0); EOS % 5.3 % (0-4.5); HEMATOCRIT 32.1 % (35.4-49); HEMOGLOBIN 10.8 GM/dL (11.7-16.9); LYMPH % 17.5 % (8-40); MCH 25.3 pg (25.7-33.7); MCHC 33.8 g/dl (32.0-35.9); MEAN CELL VOLUME 74.9 fl (80-96); MEAN PLT VOLUME 8.2 fl (7.5-11.1); MONO % 11.5 % (3.8-10.2); NEUT % 65.2 % (42.8-82.8); PLATELET COUNT 228 K/MM3 (134-434); RBC 4.28 M/mm3 (4.00-5.60); RDW 16.6 % (11.9-15.9); WHITE BLOOD COUNT 7.9 K/mm3 (4.0-10.0)
[2018-11-03 08:10] LABS: ANION GAP 8 MMOL/L (8-16); BLOOD UREA NITROGEN 21 mg/dL (7-18); CALCIUM 8.5 mg/dL (8.5-10.1); CHLORIDE 107 mmol/L (98-107); CO2 28 mmol/L (21-32); CREATININE 1.4 mg/dL (0.55-1.3); GLUCOSE,RANDOM 92 mg/dL (74-106); POTASSIUM 3.7 mmol/L (3.5-5.1); SODIUM 143 mmol/L (136-145)
[2018-11-03] MEDS ORDERED: DEXTROSE 5%-WATER - 50 ML IVPB ONE ×2 (08:51→17:33)
[2018-11-03] MEDS: TAMSULOSIN HCL 0.4 MG CAP PO SCH (08:55)
[2018-11-03] MEDS: amLODIPine BESYLATE 10 MG TABLET (FP) PO SCH (08:59)
[2018-11-03] MEDS: HEPARIN NA (PORCINE) 5,000 UNITS/ML 1ML VIAL SQ SCH ×2 (08:59→21:55)
[2018-11-03] MEDS: GABAPENTIN 300 MG CAPSULE (FP) PO SCH ×2 (08:59→21:56)
[2018-11-03] MEDS: FAMOTIDINE 20 MG/50 ML IVPB 20 MG/50 ML MG IVPB SCH ×2 (09:00→21:55)
[2018-11-03] MEDS: VALSARTAN 160 MG TABLET (UD) PO SCH ×2 (09:00→21:55)
[2018-11-03] MEDS: COLLAGENASE CLOSTRIDIUM HIST. 30 GRAMS TUBE TP SCH (09:01)
[2018-11-03] MEDS: DONEPEZIL HCL PO SCH (09:05)
[2018-11-03] MEDS: MEMANTINE HCL 10 MG TABLET (FP) PO SCH ×2 (09:05→21:56)
[2018-11-03] MEDS: BRIMONIDINE TARTRATE 0.1% OPHTHALMIC 5 ML BOTTLE OU SCH ×2 (09:06→21:55)
--- NOTE | 2018-11-03 12:30 | PN ---
Progress Note, Physician History of Present Illness: patient stable today' feels better no complaints - Current Medication List Current Medications: Active Medications Acetaminophen (Tylenol -) 650 mg PO Q8H PRN PRN Reason: TEMPERATURE OVER 100 Last Admin: 10/31/18 21:25 Dose: 650 mg Amlodipine Besylate (Norvasc -) 10 mg PO DAILY [facility] Last Admin: 11/03/18 08:59 Dose: 10 mg Brimonidine Tartrate (Alphagan P 0.1% -) 1 drop OU BID [facility] Last Admin: 11/03/18 09:06 Dose: 1 drop Collagenase (Santyl -) 1 applic TP DAILY [facility]; Protocol Last Admin: 11/03/18 09:01 Dose: Not Given Gabapentin (Neurontin -) 300 mg PO BID [facility] Last Admin: 11/03/18 08:59 Dose: 300 mg Heparin Sodium (Porcine) (Heparin -) 5,000 unit SQ BID [facility] Last Admin: 11/03/18 08:59 Dose: 5,000 unit Piperacillin Sod/Tazobactam (Sod 3.375 gm/ Dextrose) 50 mls @ 100 mls/hr IVPB Q8H-IV [facility]; Protocol Last Admin: 11/03/18 09:01 Dose: 100 mls/hr Vancomycin HCl 1,250 mg/ (Dextrose) 250 mls @ 166.667 mls/hr IVPB Q24H [facility]; Protocol Last Admin: 11/02/18 13:33 Dose: 166.667 mls/hr Famotidine/Sodium Chloride (Pepcid 20 Mg Premixed Ivpb -) 20 mg in 50 mls @ 100 mls/hr IVPB BID [facility] Last Admin: 11/03/18 09:00 Dose: 100 mls/hr Insulin Detemir (Levemir Vial) 27 units SQ 0700,2200 [facility] Last Admin: 11/03/18 06:06 Dose: 27 units Memantine (Namenda -) 10 mg PO BID [facility] Last Admin: 11/03/18 09:05 Dose: 10 mg Metformin HCl (Glucophage -) 500 mg PO BIDAC [facility] Last Admin: 11/03/18 06:06 Dose: 500 mg Metoprolol Succinate (Toprol Xl -) 100 mg PO DAILY [facility] Last Admin: 11/03/18 08:59 Dose: 100 mg Mirtazapine (Remeron -) 15 mg PO HS [facility] Last Admin: 11/02/18 22:20 Dose: 15 mg Non-Formulary Medication (Donepezil Hcl [Aricept]) 0 mg PO DAILY [facility] Last Admin: 11/03/18 09:05 Dose: 1 mg Ondansetron HCl (Zofran Injection) 4 mg IVPUSH Q6H PRN PRN Reason: NAUSEA Tamsulosin HCl (Flomax -) 0.4 mg PO 0830 [facility] Last Admin: 11/03/18 08:55 Dose: 0.4 mg Valsartan (Diovan -) 160 mg PO BID [facility] Last Admin: 11/03/18 09:00 Dose: 160 mg - Objective Vital Signs: Vital Signs Temperature 98.4 F 11/03/18 06:00 Pulse Rate 52 L 11/03/18 06:00 Respiratory Rate 20 11/03/18 06:00 Blood Pressure 140/61 11/03/18 06:00 O2 Sat by Pulse Oximetry (%) 98 11/02/18 21:00 Constitutional: Yes: No Distress, Calm Neck: Yes: Supple, Trachea Midline Cardiovascular: Yes: Regular Rate and Rhythm Respiratory: Yes: Regular, CTA Bilaterally Gastrointestinal: Yes: Normal Bowel Sounds, Soft Musculoskeletal: Yes: WNL Extremities: Yes: Other Wound/Incision: Yes: Dressing Dry and Intact Neurological: Yes: Alert, Oriented Psychiatric: Yes: Alert, Oriented Labs: CBC, BMP 11/03/18 06:30 11/03/18 06:30 Assessment/Plan Problem List - Problems (1) Gangrene of right foot Code(s): I96 - GANGRENE, NOT ELSEWHERE CLASSIFIED (2) Diabetes mellitus Code(s): E11.9 - TYPE 2 DIABETES MELLITUS WITHOUT COMPLICATIONS Qualifiers: Diabetes mellitus type: other specified (including HOMAR) Diabetes mellitus bed bug exterminator insulin use: unspecified bed bug exterminator insulin use status Diabetes mellitus complication status: with skin complications Diabetes mellitus complication detail: with foot ulcer Qualified Code(s): E13.621 - Other specified diabetes mellitus with foot ulcer (3) HTN (hypertension) Code(s): I10 - ESSENTIAL (PRIMARY) HYPERTENSION Qualifiers: Hypertension type: essential hypertension Qualified Code(s): I10 - Essential (primary) hypertension (4) PVD (peripheral vascular disease) Code(s): I73.9 - PERIPHERAL VASCULAR DISEASE, UNSPECIFIED plan continue current mgmt cx reports noted will stop vanco today if stable will stop zosyn tomorrow wound care rest as per the team
--- NOTE | 2018-11-03 12:34 | PN ---
Progress Note, Physician Chief Complaint: c/o nausea - Current Medication List Current Medications: Active Medications Acetaminophen (Tylenol -) 650 mg PO Q8H PRN PRN Reason: TEMPERATURE OVER 100 Last Admin: 10/31/18 21:25 Dose: 650 mg Amlodipine Besylate (Norvasc -) 10 mg PO DAILY [facility] Last Admin: 11/03/18 08:59 Dose: 10 mg Brimonidine Tartrate (Alphagan P 0.1% -) 1 drop OU BID [facility] Last Admin: 11/03/18 09:06 Dose: 1 drop Collagenase (Santyl -) 1 applic TP DAILY [facility]; Protocol Last Admin: 11/03/18 09:01 Dose: Not Given Gabapentin (Neurontin -) 300 mg PO BID [facility] Last Admin: 11/03/18 08:59 Dose: 300 mg Heparin Sodium (Porcine) (Heparin -) 5,000 unit SQ BID [facility] Last Admin: 11/03/18 08:59 Dose: 5,000 unit Piperacillin Sod/Tazobactam (Sod 3.375 gm/ Dextrose) 50 mls @ 100 mls/hr IVPB Q8H-IV [facility]; Protocol Last Admin: 11/03/18 09:01 Dose: 100 mls/hr Famotidine/Sodium Chloride (Pepcid 20 Mg Premixed Ivpb -) 20 mg in 50 mls @ 100 mls/hr IVPB BID [facility] Last Admin: 11/03/18 09:00 Dose: 100 mls/hr Insulin Detemir (Levemir Vial) 27 units SQ 0700,2200 [facility] Last Admin: 11/03/18 06:06 Dose: 27 units Memantine (Namenda -) 10 mg PO BID [facility] Last Admin: 11/03/18 09:05 Dose: 10 mg Metformin HCl (Glucophage -) 500 mg PO BIDAC [facility] Last Admin: 11/03/18 06:06 Dose: 500 mg Metoprolol Succinate (Toprol Xl -) 100 mg PO DAILY [facility] Last Admin: 11/03/18 08:59 Dose: 100 mg Mirtazapine (Remeron -) 15 mg PO HS [facility] Last Admin: 11/02/18 22:20 Dose: 15 mg Non-Formulary Medication (Donepezil Hcl [Aricept]) 0 mg PO DAILY [facility] Last Admin: 11/03/18 09:05 Dose: 1 mg Ondansetron HCl (Zofran Injection) 4 mg IVPUSH Q6H PRN PRN Reason: NAUSEA Tamsulosin HCl (Flomax -) 0.4 mg PO 0830 [facility] Last Admin: 11/03/18 08:55 Dose: 0.4 mg Valsartan (Diovan -) 160 mg PO BID [facility] Last Admin: 11/03/18 09:00 Dose: 160 mg - Objective Vital Signs: Vital Signs Temperature 98.4 F 11/03/18 06:00 Pulse Rate 52 L 11/03/18 06:00 Respiratory Rate 20 11/03/18 06:00 Blood Pressure 140/61 11/03/18 06:00 O2 Sat by Pulse Oximetry (%) 98 11/02/18 21:00 Elderly man comfortable not in distress HEENT: Mm moist, no anemia, PERRLA EOMI NECK: No JVd No Bruit CHEST: CTA B/L CVS: S1S2 R ABD: No distention non tender Bs + EXT: S/P RT Foot toes amputation, wound in dressing 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: AOX3 non focal Labs: CBC, BMP 11/03/18 06:30 11/03/18 06:30 Problem List - Problems (1) Gangrene of right foot Assessment/Plan: S/P surgery spiked fever 101 last night TWBC rising on IV Vancomycin and Zosyn Code(s): I96 - GANGRENE, NOT ELSEWHERE CLASSIFIED (2) Diabetes mellitus Assessment/Plan: Cont current med optimize Gycemic control Code(s): E11.9 - TYPE 2 DIABETES MELLITUS WITHOUT COMPLICATIONS Qualifiers: Diabetes mellitus type: other specified (including HOMAR) Diabetes mellitus retirement insulin use: unspecified retirement insulin use status Diabetes mellitus complication status: with skin complications Diabetes mellitus complication detail: with foot ulcer Qualified Code(s): E13.621 - Other specified diabetes mellitus with foot ulcer; L97.509 - Non-pressure chronic ulcer of other part of unspecified foot with unspecified severity (3) HTN (hypertension) Assessment/Plan: Cont home meds Code(s): I10 - ESSENTIAL (PRIMARY) HYPERTENSION Qualifiers: Hypertension type: essential hypertension Qualified Code(s): I10 - Essential (primary) hypertension (4) PVD (peripheral vascular disease) Assessment/Plan: Chronic SS/p amputation of toes Code(s): I73.9 - PERIPHERAL VASCULAR DISEASE, UNSPECIFIED (5) Dementia Assessment/Plan: Cont Home meds Code(s): F03.90 - UNSPECIFIED DEMENTIA WITHOUT BEHAVIORAL DISTURBANCE (6) Nausea & vomiting Assessment/Plan: Dc Motrin add Zofran PRN and pepcid Code(s): R11.2 - NAUSEA WITH VOMITING, UNSPECIFIED
--- NOTE | 2018-11-03 15:39 | PN ---
Progress Note (short form) - Note Progress Note: pod#5 no pain. vss, tmax 98.4 +sutures intact right, -dehiscence, -drainage, -tender right, wbc=7.9, no clinical signs of infection +grade 2 wound left heel, -drainage, -mal odor, normal post op Elevate b/l heels off the bed with pillow under calf not touching heels. Patient may go home from Podiatry standpoint if WBC stays normal and medicine agrees. Follow up with Dr. Hernandez or Dr. Salgado in [facility].
[2018-11-03] MEDS ORDERED: PT OWN MED DRAWER 7, Y5N ONE (21:49)
[2018-11-03] MEDS: MIRTAZAPINE 15 MG TABLET (FP) PO SCH (21:56)
[2018-11-04] MEDS ORDERED: DEXTROSE 5%-WATER - 50 ML IVPB ONE ×2 (02:52→08:57)
[2018-11-04] MEDS ORDERED: PIPERACILLIN/TAZOBACTAM 3.375 GM VIAL IVPB ONE ×2 (02:52→08:57)
[2018-11-04] MEDS: PIPERACILLIN/TAZOB 3.375 GM 3.375 GM in DEXTROSE 5%-WATER - 50 ML IVPB SCH ×2 (03:23→09:12)
[2018-11-04] MEDS: INSULIN (LEVEMIR) 100 UNITS/ML UNITS SQ SCH (06:14)
[2018-11-04] MEDS ORDERED: PT OWN MED DRAWER 7, Y5N ONE (08:57)
[2018-11-04] MEDS: MEMANTINE HCL 10 MG TABLET (FP) PO SCH (09:10)
[2018-11-04] MEDS: amLODIPine BESYLATE 10 MG TABLET (FP) PO SCH (09:10)
[2018-11-04] MEDS: TAMSULOSIN HCL 0.4 MG CAP PO SCH (09:10)
[2018-11-04] MEDS: VALSARTAN 160 MG TABLET (UD) PO SCH (09:11)
[2018-11-04] MEDS: GABAPENTIN 300 MG CAPSULE (FP) PO SCH (09:11)
[2018-11-04] MEDS: HEPARIN NA (PORCINE) 5,000 UNITS/ML 1ML VIAL SQ SCH (09:11)
[2018-11-04] MEDS: FAMOTIDINE 20 MG/50 ML IVPB 20 MG/50 ML MG IVPB SCH (09:11)
[2018-11-04] MEDS: DONEPEZIL HCL PO SCH (09:13)
[2018-11-04] MEDS: BRIMONIDINE TARTRATE 0.1% OPHTHALMIC 5 ML BOTTLE OU SCH (09:16)
[2018-11-04] MEDS: COLLAGENASE CLOSTRIDIUM HIST. 30 GRAMS TUBE TP SCH (09:17)
[2018-11-04 09:19] LABS: BASO % 0.4 % (0-2.0); HEMATOCRIT 32.7 % (35.4-49); LYMPH % 21.5 % (8-40); MCH 25.1 pg (25.7-33.7); MCHC 33.6 g/dl (32.0-35.9); MEAN CELL VOLUME 74.7 fl (80-96); MEAN PLT VOLUME 8.1 fl (7.5-11.1); MONO % 12.7 % (3.8-10.2); NEUT % 60.4 % (42.8-82.8); PLATELET COUNT 252 K/MM3 (134-434); RBC 4.38 M/mm3 (4.00-5.60); RDW 16.2 % (11.9-15.9); WHITE BLOOD COUNT 7.1 K/mm3 (4.0-10.0)
[2018-11-04 09:54] LABS: BLOOD UREA NITROGEN 18 mg/dL (7-18); CHLORIDE 107 mmol/L (98-107); CO2 28 mmol/L (21-32); CREATININE 1.3 mg/dL (0.55-1.3); GLUCOSE,RANDOM 69 mg/dL (74-106); POTASSIUM 3.8 mmol/L (3.5-5.1); SODIUM 142 mmol/L (136-145)
[2018-11-04 09:55] LABS: ANION GAP 7 MMOL/L (8-16); CALCIUM 8.3 mg/dL (8.5-10.1)
--- NOTE | 2018-11-04 10:49 | PN ---
Progress Note, Physician History of Present Illness: stable no new issues feels good - Current Medication List Current Medications: Active Medications Acetaminophen (Tylenol -) 650 mg PO Q8H PRN PRN Reason: TEMPERATURE OVER 100 Last Admin: 10/31/18 21:25 Dose: 650 mg Amlodipine Besylate (Norvasc -) 10 mg PO DAILY [facility] Last Admin: 11/04/18 09:10 Dose: 10 mg Brimonidine Tartrate (Alphagan P 0.1% -) 1 drop OU BID [facility] Last Admin: 11/04/18 09:16 Dose: 1 drop Collagenase (Santyl -) 1 applic TP DAILY [facility]; Protocol Last Admin: 11/04/18 09:17 Dose: 1 applic Gabapentin (Neurontin -) 300 mg PO BID [facility] Last Admin: 11/04/18 09:11 Dose: 300 mg Heparin Sodium (Porcine) (Heparin -) 5,000 unit SQ BID [facility] Last Admin: 11/04/18 09:11 Dose: 5,000 unit Piperacillin Sod/Tazobactam (Sod 3.375 gm/ Dextrose) 50 mls @ 100 mls/hr IVPB Q8H-IV [facility]; Protocol Last Admin: 11/04/18 09:12 Dose: 100 mls/hr Famotidine/Sodium Chloride (Pepcid 20 Mg Premixed Ivpb -) 20 mg in 50 mls @ 100 mls/hr IVPB BID [facility] Last Admin: 11/04/18 09:11 Dose: 100 mls/hr Insulin Detemir (Levemir Vial) 27 units SQ 0700,2200 [facility] Last Admin: 11/04/18 06:14 Dose: 27 units Memantine (Namenda -) 10 mg PO BID [facility] Last Admin: 11/04/18 09:10 Dose: 10 mg Metoprolol Succinate (Toprol Xl -) 100 mg PO DAILY [facility] Last Admin: 11/04/18 09:11 Dose: 100 mg Mirtazapine (Remeron -) 15 mg PO HS [facility] Last Admin: 11/03/18 21:56 Dose: 15 mg Non-Formulary Medication (Donepezil Hcl [Aricept]) 0 mg PO DAILY [facility] Last Admin: 11/04/18 09:13 Dose: 23 mg Ondansetron HCl (Zofran Injection) 4 mg IVPUSH Q6H PRN PRN Reason: NAUSEA Tamsulosin HCl (Flomax -) 0.4 mg PO 0830 [facility] Last Admin: 11/04/18 09:10 Dose: 0.4 mg Valsartan (Diovan -) 160 mg PO BID [facility] Last Admin: 11/04/18 09:11 Dose: 160 mg - Objective Vital Signs: Vital Signs Temperature 98.6 F 11/04/18 05:55 Pulse Rate 58 L 11/04/18 05:55 Respiratory Rate 20 11/04/18 05:55 Blood Pressure 148/70 11/04/18 05:55 O2 Sat by Pulse Oximetry (%) 96 11/03/18 09:00 Constitutional: Yes: No Distress, Calm Cardiovascular: Yes: Regular Rate and Rhythm Respiratory: Yes: Regular, CTA Bilaterally Gastrointestinal: Yes: Normal Bowel Sounds, Soft Musculoskeletal: Yes: WNL Extremities: Yes: Other Wound/Incision: Yes: Dressing Dry and Intact Neurological: Yes: Alert, Oriented Psychiatric: Yes: Alert, Oriented Labs: CBC, BMP 11/04/18 08:30 11/04/18 08:30 Assessment/Plan Problem List - Problems (1) Gangrene of right foot Code(s): I96 - GANGRENE, NOT ELSEWHERE CLASSIFIED (2) Diabetes mellitus Code(s): E11.9 - TYPE 2 DIABETES MELLITUS WITHOUT COMPLICATIONS Qualifiers: Diabetes mellitus type: other specified (including HOMAR) Diabetes mellitus long chain beamer insulin use: unspecified long chain beamer insulin use status Diabetes mellitus complication status: with skin complications Diabetes mellitus complication detail: with foot ulcer Qualified Code(s): E13.621 - Other specified diabetes mellitus with foot ulcer (3) HTN (hypertension) Code(s): I10 - ESSENTIAL (PRIMARY) HYPERTENSION Qualifiers: Hypertension type: essential hypertension Qualified Code(s): I10 - Essential (primary) hypertension (4) PVD (peripheral vascular disease) Code(s): I73.9 - PERIPHERAL VASCULAR DISEASE, UNSPECIFIED plan continue current mgmt will stop zosyn and monitor rest as per the team wound care
[2018-11-04 13:14] VITALS: BP 116/54; PULSE 61; TEMP 98.4
--- NOTE | 2018-11-04 14:44 | DS ---
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 Hernandez Discharge Instructions Dear ADELA URIAS, Post Operative Instructions Wound care Daily dressing changes with clean dry dressing, may shower after removing dressing then replace. Diet Diabetic diet. Eat healthy, high-fiber foods. Drink 6 to 8 glasses of liquid each day. This will assist in keeping your bowels are regular. Pain management You may take Tylenol or acetaminophen or Ibuprofen (for example, Motrin, Advil etc.) Any pain prescription medication ordered should be taken as prescribed for moderate to severe pain. Call Dr. Hernandez for any of the following: Severe pain not relieved by medication Fever of 101 or higher Excessive bleeding or drainage on dressing Call the office at for a post operative appointment in 7 - 10 days. Referrals: Darron Presley MD [Staff Physician] - 1 Month Jey Hernandez MD [Staff Physician] - 1 Week Disposition: HOME - Home Medications Comprehensive Discharge Medication List: Ambulatory Orders Amlodipine Besylate 10 mg PO DAILY 10/22/18 Donepezil HCl [Aricept] 23 mg PO DAILY 10/22/18 Gabapentin 300 mg PO BID 10/22/18 Insulin Lispro Protamin/Lispro [Humalog Mix 75-25 Kwikpen] 27 unit SQ BID Memantine HCl [Namenda -] 10 mg PO BID 10/22/18 Metoprolol Succinate [Toprol Xl] 100 mg PO DAILY 10/22/18 Mirtazapine [Remeron -] 15 mg PO HS 10/22/18 Tamsulosin HCl [Flomax -] 0.4 mg PO DAILY 10/22/18 Valsartan 160 mg PO BID 10/22/18 metFORMIN HCL [Metformin ER Osmotic] 500 mg PO BID 10/22/18 Brimonidine Tartrate [Alphagan P 0.1% -] 1 drop OU BID drops 11/04/18
== END 2018-11-04 17:08 | disposition home or self-care (01) | DRG 240 ==
LOC: JASUSAT 09:31 → J6S 15:26
PROVIDERS: ADMIT Internal Medicine; ATTEND Internal Medicine
PROC: 0Y6M0ZD Detachment at Right Foot, Partial 4th Ray, Open Approach (ICD-10-PCS; 2018-10-29)
PROC: 0Y6R0Z0 Detachment at Right 2nd Toe, Complete, Open Approach (ICD-10-PCS; 2018-10-29)
PROC: 0Y6X0Z0 Detachment at Right 5th Toe, Complete, Open Approach (ICD-10-PCS; 2018-10-29)
PROC: 0Y6T0Z0 Detachment at Right 3rd Toe, Complete, Open Approach (ICD-10-PCS; 2018-10-29)
PROC: 0HXMXZZ Transfer Right Foot Skin, External Approach (ICD-10-PCS; 2018-10-29)
PROC: 0Y6M0ZC Detachment at Right Foot, Partial 3rd Ray, Open Approach (ICD-10-PCS; 2018-10-29)
PROC: 0Y6M0ZD Detachment at Right Foot, Partial 4th Ray, Open Approach (ICD-10-PCS; 2018-10-29)
PROC: 0Y6M0ZF Detachment at Right Foot, Partial 5th Ray, Open Approach (ICD-10-PCS; 2018-10-29)
PROC: 0Y6M0Z9 Detachment at Right Foot, Partial 1st Ray, Open Approach (ICD-10-PCS; principal; 2018-10-29 14:15)
DX: E11.52 Type 2 diabetes mellitus with diabetic peripheral angiopathy with gangrene (principal); E24.9 Cushing's syndrome, unspecified; I96 Gangrene, not elsewhere classified; N17.9 Acute kidney failure, unspecified; L97.429 Non-pressure chronic ulcer of left heel and midfoot with unspecified severity; I10 Essential (primary) hypertension; E78.5 Hyperlipidemia, unspecified; G30.9 Alzheimer's disease, unspecified; F02.80 Dementia in other diseases classified elsewhere, unspecified severity, without behavioral disturbance, psychotic disturbance, mood disturbance, and anxiety; Z86.73 Personal history of transient ischemic attack (TIA), and cerebral infarction without residual deficits; Z79.4 Long term (current) use of insulin; Z79.84 Long term (current) use of oral hypoglycemic drugs; N40.0 Benign prostatic hyperplasia without lower urinary tract symptoms; R50.9 Fever, unspecified; E11.621 Type 2 diabetes mellitus with foot ulcer; R11.2 Nausea with vomiting, unspecified
CPT/HCPCS: 36415; 73630-TC-LT; 73630-TC-RT-FY; 80048; 81003; 81015; 82962; 85025; 87040; 87086; 88305-TC; 88311-TC; 94760; G0463-25; J1644

== ENCOUNTER 2019-08-20 10:02 | Inpatient (IN) | payer OTHER ==
[2019-08-20] MEDS ORDERED: VANCOMYCIN HCL 1,500 MG in DEXTROSE 5%-WATER - 500 ML IVPB ONE (10:37)
[2019-08-20] MEDS ORDERED: MEROPENEM 1 GM in DEXTROSE 5%-WATER 100 ML IVPB ONE (10:37)
--- NOTE | 2019-08-20 10:38 | PDOC ---
Documentation entered by Adriano Quintana SCRIBE, acting as scribe for Josseline Sims MD. Josseline Sims MD: This documentation has been prepared by the Lilian cruz Nirvannie, SCRIBE, under my direction and personally reviewed by me in its entirety. I confirm that the documentation accurately reflects all work, treatment, procedures, and medical decision making performed by me. History of Present Illness - General Chief Complaint: Wound Stated Complaint: WOUND CARE / RT HEEL Time Seen by Provider: 08/20/19 10:11 History Source: Patient, Family - History of Present Illness Initial Comments: 08/20/19 10:44 The patient is a 84 year old male, with a significant past medical history of osteomyelitis (chronic wounds to blt LE), gangrene (s/p amputation of the Left 2nd-4th toes), diabetes, hypertension, hyperlipidemia, alzheimers, BPH, and depression/anxiety, who presents to the emergency department with, nonhealing right heel wound. As per patients son at bedside, he was advised to report to the ED for IV antibiotics secondary to failing outpatient PO antibiotics. Patient was placed on Doxycycline (BID 8 days ago on 08/13) after previously failing PO Amoxicillin. Son and at bedside describes the wound as peeling without any purulent discharge. Family notes he was last seen at wound care appointment was yesterday. Family denies any recent fevers or chills but endorses checking his temperature for the course of the week with a Tmax of 99.7F. Family denies any nausea, vomiting, diarrhea, or acute change in mental status. History was limited secondary to patients dementia thus, was obtained via EMR and family at bedside. Allergies: NKDA Surgical History: Amputation to the Left 2nd-4th toes Social History: Non Smoker. No ETOH or drug use. Primary Care Physician: Dr. Presley Surgeon/Wound Care: Dr. Hernandez ID: Dr. Cristobal Motor Vehicle Or Caravan Salesperson: Dr. Chaney Past History - Past Medical History Allergies/Adverse Reactions: Allergies Allergy/AdvReac Type Severity Reaction Status Date / Time No Known Allergies Allergy Verified 08/20/19 10:05 Home Medications: Ambulatory Orders Amlodipine Besylate 10 mg PO DAILY 10/22/18 Gabapentin 300 mg PO BID 10/22/18 Insulin Lispro Protamin/Lispro [Humalog Mix 75-25 Kwikpen] 27 unit SQ BID Memantine HCl [Namenda -] 10 mg PO BID 10/22/18 Metoprolol Succinate [Toprol Xl] 100 mg PO DAILY 10/22/18 Mirtazapine [Remeron -] 15 mg PO HS 10/22/18 Tamsulosin HCl [Flomax -] 0.4 mg PO DAILY 10/22/18 Valsartan 160 mg PO BID 10/22/18 metFORMIN HCL [Metformin ER Osmotic] 500 mg PO BID 10/22/18 Brimonidine Tartrate [Alphagan P 0.1% -] 1 drop OU BID drops 11/04/18 Clopidogrel Bisulfate [Plavix] 1 tab PO DAILY 12/11/18 Doxycycline Calcium 100 mg PO BID 08/13/19 Anemia: No Asthma: No Cancer: No Cardiac Disorders: No CVA: No COPD: No CHF: No Dementia: Yes (EARLY ALZHEIMERS) Diabetes: Yes GI Disorders: No Disorders: Yes (BPH) HTN: Yes Hypercholesterolemia: Yes Liver Disease: No Psychiatric Problems: Yes (depression/anxiety) Seizures: No Thyroid Disease: No - Surgical History Abdominal Surgery: No Appendectomy: No Cardiac Surgery: No Cholecystectomy: No Lung Surgery: No Neurologic Surgery: No Orthopedic Surgery: Yes (S/P LEFT FOOT TRANSMETATARSAL AMPUTATION) - Immunization History Immunization Up to Date: Yes - Psycho Social/Smoking Cessation Hx Smoking History: Never smoked Have you smoked in the past 12 months: No Hx Alcohol Use: No Drug/Substance Use Hx: No Substance Use Type: None Hx Substance Use Treatment: No Review of Systems - Review of Systems Able to Perform ROS?: Yes Comments:: 08/20/19 10:44 Limited secondary to patient's dementia. Constitutional: no fevers or chills. HEENT: no headache or dizziness. No congestion. No visual/hearing disturbances. CVS: no cp or syncope. Resp: no sob. No cough. Gastrointestinal: no abdominal pain, nausea or vomiting. Genitourinary: no urinary sx, hematuria. MUSCULOSKELETAL: No joint pain and swelling. No neck or back pain. SKIN: +Non-healing right heel wound. Hematologic: no easy bruising/bleeding. NEUROLOGIC: No headache, dizziness, LOC or altered mental status. No weakness, numbness or tingling. Psych: no anxiety or depression Allergic/Immunologic: no allergies All other systems reviewed and negative, or as documented in HPI. *Physical Exam - Vital Signs Last Vital Signs Temp Pulse Resp BP Pulse Ox 98.3 F 60 18 155/64 99 08/20/19 10:05 08/20/19 10:05 08/20/19 10:05 08/20/19 10:05 08/20/19 10:05 - Physical Exam Comments: 08/20/19 10:50 General: Well appearing, awake, NAD. HEENT: NCAT, PERRL, EOMI, clear conjunctiva, anicteric, moist mucus membranes, clear oropharynx, no oral lesions.. Neck: neck supple, FROM Resp: CTAB, normal and even respirations, no respiratory distress CVS: RRR, no murmurs, 2+ peripheral pulses throughout, no peripheral edema Abdomen: soft, NTND, no rebound or guarding. Back: nontender, normal inspection and ROM MSK: no edema, GARCIA x4, ROM intact. No clubbing or cyanosis. normal bulk and tone. Extremities: +Bilateral toe amputations. +Right heel: 3x4cm ulceration, desquamating around the peripheral. Nontender. Nonpurulent. Mildly malodorous. no calf tenderness Neuro: +Pleasantly demented. Alert; no focal neurologic deficits Psych: Calm and cooperative Skin: warm and well perfused, cap refill <2 sec, normal color 08/20/19 12:22 Heart Score/ECG Review #1 ECG reviewed & interpreted by me at: 10:50 General ECG Interpretation: Sinus Rhythm, Normal Intervals Compared to previous ECG there are: No significant change 08/20/19 10:56 EKG normal sinus rhythm at 54 bpm - bradycardia, no interval abnormalities, narrow QRS, ST and T wave segments and morphology normal. Nonspecific T wave abnormalities in lateral leads, I, AVL, unchanged ED Treatment Course - LABORATORY CBC & Chemistry Diagram: 08/20/19 10:29 08/20/19 10:29 Medical Decision Making - Medical Decision Making 08/20/19 10:37 Vital Signs Temp Pulse Resp BP Pulse Ox 98.3 F 60 18 155/64 99 08/20/19 10:05 08/20/19 10:05 08/20/19 10:05 08/20/19 10:05 08/20/19 10:05 vs reviewed, no fever, normotensive, wnl ddx. osteomyelitis, cellulitis, abscess, nec fasciitis, gangrene, bacteremia Cultures have been positive for Proteus, Enterobacter, enterococcus and Staphylococcus in the affected right heel. Other cultures for other extremity' s have also been positive for Clostridium, E. coli, Morganella, Proteus and Corynebacterium based on lowest ANAHY, will give Meropenem, MRSA risk factors so also vancomycin h/o dm, wounds, failing outpatient abx, labs and lytes normal, inflammatory markers wnl, no wbc ct. Cr at baseline. ID cs Dr Cristobal. paged out and will discuss, Dr Cristobal sent patient in Dr Hernandez, wound care admit to Dr Presley, s/o case, admit to med surg, abx, medical management. 08/20/19 12:22 08/20/19 12:23 Discharge - Discharge Information Problems reviewed: Yes Clinical Impression/Diagnosis: Ulcer of right lower leg, Cellulitis in diabetic foot Condition: Fair - Admission Yes - Follow up/Referral - Patient Discharge Instructions - Post Discharge Activity
[2019-08-20] MEDS ORDERED: VANCOMYCIN 500 MG VIAL (RESTRICTED TO ID ONLY) ONE (10:57)
[2019-08-20] MEDS ORDERED: VANCOMYCIN 1 GRAM (PRE-DOCKED) 1,000 MG/250 ML BAG IVPB ONE (10:57)
[2019-08-20] MEDS ORDERED: MEROPENEM 1 GM VIAL (RESTRICTED TO ID) IVPB ONE (10:57)
[2019-08-20 11:02] LABS: BASO % 0.5 % (0-2.0); EOS % 1.1 % (0-4.5); HEMATOCRIT 41.9 % (35.4-49); HEMOGLOBIN 13.9 GM/dL (11.7-16.9); MCH 25.1 pg (25.7-33.7); MCHC 33.2 g/dl (32.0-35.9); MEAN CELL VOLUME 75.5 fl (80-96); MEAN PLT VOLUME 8.9 fl (7.5-11.1); MONO % 6.6 % (3.8-10.2); NEUT % 70.8 % (42.8-82.8); PLATELET COUNT 300 K/MM3 (134-434); RBC 5.55 M/mm3 (4.00-5.60); RDW 16.5 % (11.9-15.9); WHITE BLOOD COUNT 9.8 K/mm3 (4.0-10.0)
[2019-08-20 11:17] LABS: ALBUMIN 3.9 g/dl (3.4-5.0); BILIRUBIN,TOTAL 0.4 mg/dL (0.2-1); BLOOD UREA NITROGEN 19.6 mg/dL (7-18); CALCIUM 9.4 mg/dL (8.5-10.1); CREATININE 1.5 mg/dL (0.55-1.3)
[2019-08-20 11:18] LABS: INR 1.1 (0.83-1.09)
[2019-08-20 11:21] LABS: ACTIVATED PTT 34.2 SECONDS (25.2-36.5)
--- NOTE | 2019-08-20 13:43 | CON.ID ---
Consult Consult Specialty:: infectious diseases Referred by:: Reason for Consultation:: no healing ulcer of the heel - History of Present Illness Chief Complaint: non healing ulcer of the heel History of Present Illness: 84 year old male, with a significant past medical history of osteomyelitis ( chronic wounds to blt LE), gangrene (s/p amputation of the Left 2nd-4th toes), diabetes, hypertension, hyperlipidemia, alzheimers, BPH, and depression/anxiety ,developed non healing ulcer of the rt heel patient failed po abx and the wound has detoriated since then and draining a lot also cx done from the wound shows multiple organisms patient does not feel too well - History Source History Provided By: Patient, Family Member Limitations to Obtaining History: No Limitations - Past Medical History 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, Dementia, TIA Cardio/Vascular: Yes: HTN, Hyperlipdemia Endocrine: Yes: Bozena's Disease, Diabetes Mellitus - Alcohol/Substance Use Hx Alcohol Use: No - Smoking History Smoking history: Never smoked Have you smoked in the past 12 months: No Home Medications - Allergies Allergies/Adverse Reactions: Allergies Allergy/AdvReac Type Severity Reaction Status Date / Time No Known Allergies Allergy Verified 08/20/19 10:05 - Home Medications Home Medications: Ambulatory Orders Amlodipine Besylate 10 mg PO DAILY 10/22/18 Gabapentin 300 mg PO BID 10/22/18 Insulin Lispro Protamin/Lispro [Humalog Mix 75-25 Kwikpen] 27 unit SQ BID Memantine HCl [Namenda -] 10 mg PO BID 10/22/18 Metoprolol Succinate [Toprol Xl] 100 mg PO DAILY 10/22/18 Mirtazapine [Remeron -] 15 mg PO HS 10/22/18 Tamsulosin HCl [Flomax -] 0.4 mg PO DAILY 10/22/18 Valsartan 160 mg PO BID 10/22/18 metFORMIN HCL [Metformin ER Osmotic] 500 mg PO BID 10/22/18 Brimonidine Tartrate [Alphagan P 0.1% -] 1 drop OU BID drops 11/04/18 Clopidogrel Bisulfate [Plavix] 1 tab PO DAILY 12/11/18 Doxycycline Calcium 100 mg PO BID 08/13/19 Review of Systems - Review of Systems Constitutional: reports: No Symptoms Eyes: reports: No Symptoms HENT: reports: No Symptoms Neck: reports: No Symptoms Cardiovascular: reports: No Symptoms Respiratory: reports: No Symptoms Gastrointestinal: reports: No Symptoms Genitourinary: reports: No Symptoms Musculoskeletal: reports: Other Integumentary: reports: Wound Neurological: reports: No Symptoms Endocrine: reports: No Symptoms Hematology/Lymphatic: reports: No Symptoms Psychiatric: reports: No Symptoms Physical Exam Vital Signs: Vital Signs Temperature 98.3 F 08/20/19 10:05 Pulse Rate 60 08/20/19 10:05 Respiratory Rate 18 08/20/19 10:05 Blood Pressure 155/64 08/20/19 10:05 O2 Sat by Pulse Oximetry (%) 100 08/20/19 11:48 Constitutional: Yes: Well Nourished, No Distress, Calm Eyes: Yes: Conjunctiva Clear Neck: Yes: Supple, Trachea Midline Cardiovascular: Yes: Regular Rate and Rhythm Respiratory: Yes: Regular, CTA Bilaterally Gastrointestinal: Yes: Normal Bowel Sounds, Soft Musculoskeletal: Yes: WNL Extremities: Yes: Erythema (of the rt foot), Other Wound/Incision: Yes: Dressing Dry and Intact, Dressing Removed, Draining Neurological: Yes: Alert, Oriented Psychiatric: Yes: Alert, Oriented Labs: CBC, BMP 08/20/19 10:29 08/20/19 10:29 Assessment/Plan this patient coming in wiht rt heel wound draining and infected with failed outpatient treatment with multiple organisms will start patient on zosyn also xray of the foot will order it wound care consult rest as per the team
[2019-08-20 15:22] VITALS: BMI 27.1
[2019-08-20] MEDS ORDERED: DEXTROSE 5%-WATER - 50 ML IVPB ONE (17:32)
[2019-08-20] MEDS ORDERED: PIPERACILLIN/TAZOBACTAM 3.375 GM VIAL IVPB ONE (17:32)
[2019-08-20] MEDS: PIPERACILLIN/TAZOB 3.375 GM 3.375 GM in DEXTROSE 5%-WATER - 50 ML IVPB SCH (17:37)
[2019-08-20] MEDS ORDERED: MEMANTINE HCL 10 MG TABLET (FP) PO ONE (20:10)
[2019-08-20] MEDS: BRIMONIDINE TARTRATE 0.2% OPHTHALMIC 5 ML BOTTLE OU SCH (21:22)
[2019-08-20] MEDS: GABAPENTIN 300 MG CAPSULE (FP) PO SCH (21:24)
[2019-08-20] MEDS: MIRTAZAPINE 15 MG TABLET (FP) PO SCH (21:24)
[2019-08-20] MEDS: TIMOLOL 0.5% OPHTHALMIC SOL 5 ML BOTTLE OU SCH (21:26)
[2019-08-20] MEDS: LATANOPROST 0.005% OPHTH SOLN 2.5ML BOTTLE OU SCH (21:29)
[2019-08-20] MEDS: DORZOLAMIDE 2% HCL OPHTHALMIC SOLUTION 10 ML BOTTLE OU SCH (21:29)
[2019-08-20] MEDS ORDERED: GABAPENTIN 300 MG CAPSULE (FP) PO SCH (22:00)
[2019-08-21] MEDS ORDERED: PIPERACILLIN/TAZOBACTAM 3.375 GM VIAL IVPB ONE ×3 (01:43→17:14)
[2019-08-21] MEDS ORDERED: DEXTROSE 5%-WATER - 50 ML IVPB ONE ×3 (01:43→17:14)
[2019-08-21] MEDS: PIPERACILLIN/TAZOB 3.375 GM 3.375 GM in DEXTROSE 5%-WATER - 50 ML IVPB SCH ×3 (01:50→17:19)
[2019-08-21] MEDS ORDERED: PT OWN MED DRAWER 7, Y5N ONE ×2 (06:23→07:56)
[2019-08-21] MEDS: INSULIN (NOVOLOG MIX 70/30) 100 UNITS/ML MDV SQ SCH ×2 (07:33→17:18)
[2019-08-21] MEDS: TAMSULOSIN HCL 0.4 MG CAP PO SCH (08:24)
--- NOTE | 2019-08-21 09:33 | HP ---
DATE OF ADMISSION: 08/20/2019 This is an 84-year-old male known to me for many years, diagnosed to have hypertension; peripheral vascular disease, status post amputation of transmetatarsal feet, both sides; hyperlipidemia; BPH; Alzheimer's; developed an ulcer on the right heel for the last few weeks. I was treating him outpatient, then also was referred to wound care. Yesterday, the wound care advised him hospitalization for IV antibiotics. He lives with his at home, on multiple medications for hypertension, diabetes, and dementia. No history of alcohol use. Not a smoker. PHYSICAL EXAMINATION: General: Today, he is awake, alert, and talking, has minimal dementia. Vital Signs: Blood pressure 150/64, pulse 60, respirations 20, temperature 98. HEENT: Unremarkable. Neck: Supple. No JVD. Lungs: Clear. Heart: S1, S2 normal. No S3, S4. Abdomen: Soft. Legs: No edema. The right heel ulcer is about 1 x 2 inches and with a necrotic center to it. LABORATORY DATA: WBC 9.8, hemoglobin 13.9, hematocrit 41.9, platelets 300. Sodium 139, potassium 4, chloride 104, CO2 of 29, BUN 19.6, creatinine 1.5, blood sugar 189. PLAN: IV antibiotics, Zosyn. Continue other medications. Will consult Vascular Surgery. VIKRAM ORDOÑEZ M.D. [id number]
[2019-08-21] MEDS: amLODIPine BESYLATE 10 MG TABLET (FP) PO SCH (10:52)
[2019-08-21] MEDS: BRIMONIDINE TARTRATE 0.2% OPHTHALMIC 5 ML BOTTLE OU SCH ×2 (10:52→21:27)
[2019-08-21] MEDS: DONEPEZIL HCL 10 MG TABLET (FP) PO SCH (10:52)
[2019-08-21] MEDS: GABAPENTIN 300 MG CAPSULE (FP) PO SCH ×2 (10:52→21:27)
[2019-08-21] MEDS: TIMOLOL 0.5% OPHTHALMIC SOL 5 ML BOTTLE OU SCH ×2 (10:53→21:29)
[2019-08-21] MEDS: DORZOLAMIDE 2% HCL OPHTHALMIC SOLUTION 10 ML BOTTLE OU SCH ×2 (10:53→21:28)
--- NOTE | 2019-08-21 11:30 | EKG ---
Test Reason : Blood Pressure : / mmHG Vent. Rate : 054 BPM Atrial Rate : 054 BPM P-R Int : 234 ms QRS Dur : 082 ms QT Int : 440 ms P-R-T Axes : -22 -29 104 degrees QTc Int : 417 ms SINUS BRADYCARDIA WITH 1ST DEGREE A-V BLOCK ABNORMAL QRS-T ANGLE, CONSIDER PRIMARY T WAVE ABNORMALITY ABNORMAL ECG WHEN COMPARED WITH ECG OF 18-SEP-2018 12:01, NO SIGNIFICANT CHANGE WAS FOUND Confirmed by KYLAH BRISENO MD ([id number]) on 08/21/2019 11:30:35 AM Referred By: Confirmed By:KYLAH BRISENO MD
--- NOTE | 2019-08-21 17:56 | PN ---
Progress Note, Physician History of Present Illness: Pt states he feels well. Denies pain in foot. He remains afebrile. Has no new complaints. Family at bedside. - Current Medication List Current Medications: Active Medications Amlodipine Besylate (Norvasc -) 10 mg PO DAILY [facility] Last Admin: 08/21/19 10:52 Dose: 10 mg Brimonidine Tartrate (Alphagan 0.2% -) 1 drop OU BID [facility] Last Admin: 08/21/19 10:52 Dose: 1 drop Donepezil HCl (Aricept -) 10 mg PO DAILY [facility] Last Admin: 08/21/19 10:52 Dose: 10 mg Dorzolamide HCl (Trusopt 2%) 1 drop OU BID [facility] Last Admin: 08/21/19 10:53 Dose: 1 drop Gabapentin (Neurontin -) 300 mg PO BID [facility] Last Admin: 08/21/19 10:52 Dose: 300 mg Piperacillin Sod/Tazobactam (Sod 3.375 gm/ Dextrose) 50 mls @ 100 mls/hr IVPB Q8H-IV [facility]; Protocol Last Admin: 08/21/19 17:19 Dose: 100 mls/hr Insulin Aspart (Novolog Mix 70/30 Vial) 25 units SQ BIDAC [facility] Last Admin: 08/21/19 17:18 Dose: 25 unit Latanoprost (Xalatan 0.005% Eye Drops -) 1 drop OU HS [facility] Last Admin: 08/20/19 21:29 Dose: 1 drop Mirtazapine (Remeron -) 15 mg PO HS [facility] Last Admin: 08/20/19 21:24 Dose: 15 mg Sitagliptin Phosphate (Januvia -) 100 mg PO DAILY@0700 [facility] Last Admin: 08/21/19 07:33 Dose: 100 mg Tamsulosin HCl (Flomax -) 0.4 mg PO DAILY@0830 [facility] Last Admin: 08/21/19 08:24 Dose: 0.4 mg Timolol Maleate (Timoptic 0.5%) 1 drop OU BID [facility] Last Admin: 08/21/19 10:53 Dose: 1 drop - Objective Vital Signs: Vital Signs Temperature 98.4 F 08/21/19 14:00 Pulse Rate 56 L 08/21/19 14:00 Respiratory Rate 18 08/21/19 14:00 Blood Pressure 145/69 08/21/19 14:00 O2 Sat by Pulse Oximetry (%) 97 08/21/19 09:00 Constitutional: Yes: No Distress, Calm Cardiovascular: Yes: Regular Rate and Rhythm Respiratory: Yes: Regular Gastrointestinal: Yes: Normal Bowel Sounds, Soft Genitourinary: Yes: WNL Musculoskeletal: Yes: WNL Wound/Incision: Yes: Other (Rt heel with serous drainage) Neurological: Yes: Alert, Oriented Labs: CBC, BMP 08/20/19 10:29 08/20/19 10:29 INR, PTT INR 1.10 (0.83-1.09) H 08/20/19 10:29 Microbiology 08/20/19 10:29 Leg - Right Lower Gram Stain - Final 08/20/19 10:29 Leg - Right Lower Wound Culture - Preliminary Proteus Species Group D Strep Or Entero Coccus 08/20/19 10:29 Blood - Peripheral Venous Blood Culture - Preliminary NO GROWTH OBTAINED AFTER 24 HOURS, INCUBATION TO CONTINUE FOR 4 DAYS. 08/20/19 10:29 Blood - Peripheral Venous Blood Culture - Preliminary NO GROWTH OBTAINED AFTER 24 HOURS, INCUBATION TO CONTINUE FOR 4 DAYS. - ....Imaging X-ray: Report Reviewed Problem List - Problems (1) Ulcer of right lower leg Code(s): L97.919 - NON-PRS CHRONIC ULC UNSP PRT OF R LOW LEG W UNSP SEVERITY Qualifiers: (2) Dementia Code(s): F03.90 - UNSPECIFIED DEMENTIA WITHOUT BEHAVIORAL DISTURBANCE (3) Diabetes mellitus Code(s): E11.9 - TYPE 2 DIABETES MELLITUS WITHOUT COMPLICATIONS Qualifiers: Diabetes mellitus type: other specified (including HOMAR) Diabetes 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 insulin use: unspecified termite exterminator helper insulin use status Diabetes mellitus complication status: with skin complications Diabetes mellitus complication detail: with foot ulcer Qualified Code(s): E13.621 - Other specified diabetes mellitus with foot ulcer; L97.509 - Non-pressure chronic ulcer of other part of unspecified foot with unspecified severity (4) PVD (peripheral vascular disease) Code(s): I73.9 - PERIPHERAL VASCULAR DISEASE, UNSPECIFIED (5) Type 2 diabetes mellitus with foot ulcer Code(s): E11.621 - TYPE 2 DIABETES MELLITUS WITH FOOT ULCER; L97.509 - NON- PRESSURE CHRONIC ULCER OTH PRT UNSP FOOT W UNSP SEVERITY Assessment/Plan Rt heel infected ulcer -- wound culture isolates and foot xray results reviewed -- continue current antibiotic, f/u final result -- esr 20, crp 0.7 continue wound care
[2019-08-21] MEDS: MIRTAZAPINE 15 MG TABLET (FP) PO SCH (21:27)
[2019-08-21] MEDS: LATANOPROST 0.005% OPHTH SOLN 2.5ML BOTTLE OU SCH (21:28)
[2019-08-22] MEDS ORDERED: DEXTROSE 5%-WATER - 50 ML IVPB ONE ×3 (01:04→17:49)
[2019-08-22] MEDS ORDERED: PIPERACILLIN/TAZOBACTAM 3.375 GM VIAL IVPB ONE ×3 (01:04→17:49)
[2019-08-22] MEDS: PIPERACILLIN/TAZOB 3.375 GM 3.375 GM in DEXTROSE 5%-WATER - 50 ML IVPB SCH ×3 (02:05→18:09)
[2019-08-22] MEDS ORDERED: PT OWN MED DRAWER 7, Y5N ONE ×2 (05:22→09:24)
[2019-08-22] MEDS: INSULIN (NOVOLOG MIX 70/30) 100 UNITS/ML MDV SQ SCH ×2 (07:05→16:44)
[2019-08-22] MEDS: TAMSULOSIN HCL 0.4 MG CAP PO SCH (09:04)
[2019-08-22] MEDS: amLODIPine BESYLATE 10 MG TABLET (FP) PO SCH (09:38)
[2019-08-22] MEDS: DONEPEZIL HCL 10 MG TABLET (FP) PO SCH (09:39)
[2019-08-22] MEDS: GABAPENTIN 300 MG CAPSULE (FP) PO SCH ×2 (09:39→21:09)
[2019-08-22] MEDS: TIMOLOL 0.5% OPHTHALMIC SOL 5 ML BOTTLE OU SCH ×2 (09:43→21:09)
[2019-08-22] MEDS: BRIMONIDINE TARTRATE 0.2% OPHTHALMIC 5 ML BOTTLE OU SCH ×2 (09:43→21:09)
[2019-08-22] MEDS: DORZOLAMIDE 2% HCL OPHTHALMIC SOLUTION 10 ML BOTTLE OU SCH ×2 (09:44→21:09)
--- NOTE | 2019-08-22 12:48 | PN ---
Progress Note, Physician Chief Complaint: No complaints History of Present Illness: Xray Rt angle no ostiomylitis - Current Medication List Current Medications: Active Medications Amlodipine Besylate (Norvasc -) 10 mg PO DAILY [facility] Last Admin: 08/22/19 09:38 Dose: 10 mg Brimonidine Tartrate (Alphagan 0.2% -) 1 drop OU BID [facility] Last Admin: 08/22/19 09:43 Dose: 1 drop Donepezil HCl (Aricept -) 10 mg PO DAILY [facility] Last Admin: 08/22/19 09:39 Dose: 10 mg Dorzolamide HCl (Trusopt 2%) 1 drop OU BID [facility] Last Admin: 08/22/19 09:44 Dose: 1 drop Gabapentin (Neurontin -) 300 mg PO BID [facility] Last Admin: 08/22/19 09:39 Dose: 300 mg Piperacillin Sod/Tazobactam (Sod 3.375 gm/ Dextrose) 50 mls @ 100 mls/hr IVPB Q8H-IV [facility]; Protocol Last Admin: 08/22/19 09:38 Dose: 100 mls/hr Insulin Aspart (Novolog Mix 70/30 Vial) 25 units SQ BIDAC [facility] Last Admin: 08/22/19 07:05 Dose: Not Given Latanoprost (Xalatan 0.005% Eye Drops -) 1 drop OU HS [facility] Last Admin: 08/21/19 21:28 Dose: 1 drop Mirtazapine (Remeron -) 15 mg PO HS [facility] Last Admin: 08/21/19 21:27 Dose: 15 mg Sitagliptin Phosphate (Januvia -) 100 mg PO DAILY@0700 [facility] Last Admin: 08/22/19 07:06 Dose: 100 mg Tamsulosin HCl (Flomax -) 0.4 mg PO DAILY@0830 [facility] Last Admin: 08/22/19 09:04 Dose: 0.4 mg Timolol Maleate (Timoptic 0.5%) 1 drop OU BID [facility] Last Admin: 08/22/19 09:43 Dose: 1 drop - Objective Vital Signs: Vital Signs Temperature 97.9 F 08/22/19 05:57 Pulse Rate 58 L 08/22/19 05:57 Respiratory Rate 20 08/22/19 05:57 Blood Pressure 161/76 08/22/19 05:57 O2 Sat by Pulse Oximetry (%) 98 08/22/19 09:00 Constitutional: Yes: No Distress Eyes: Yes: WNL HENT: Yes: WNL Neck: Yes: WNL Cardiovascular: Yes: WNL Respiratory: Yes: WNL Gastrointestinal: Yes: Normal Bowel Sounds Edema: No Neurological: Yes: Alert Labs: CBC, BMP 08/20/19 10:29 08/20/19 10:29 INR, PTT INR 1.10 (0.83-1.09) H 08/20/19 10:29 Assessment/Plan Blood sugar good controll Continue same trt
--- NOTE | 2019-08-22 16:22 | PN ---
Progress Note, Physician History of Present Illness: Pt states he feels well. Denies LE pain. Tolerating antibiotics. Remains afebrile, alert, without distress. Family at bedside. - Current Medication List Current Medications: Active Medications Amlodipine Besylate (Norvasc -) 10 mg PO DAILY [facility] Last Admin: 08/22/19 09:38 Dose: 10 mg Brimonidine Tartrate (Alphagan 0.2% -) 1 drop OU BID [facility] Last Admin: 08/22/19 09:43 Dose: 1 drop Donepezil HCl (Aricept -) 10 mg PO DAILY [facility] Last Admin: 08/22/19 09:39 Dose: 10 mg Dorzolamide HCl (Trusopt 2%) 1 drop OU BID [facility] Last Admin: 08/22/19 09:44 Dose: 1 drop Gabapentin (Neurontin -) 300 mg PO BID [facility] Last Admin: 08/22/19 09:39 Dose: 300 mg Piperacillin Sod/Tazobactam (Sod 3.375 gm/ Dextrose) 50 mls @ 100 mls/hr IVPB Q8H-IV [facility]; Protocol Last Admin: 08/22/19 09:38 Dose: 100 mls/hr Insulin Aspart (Novolog Mix 70/30 Vial) 25 units SQ BIDAC [facility] Last Admin: 08/22/19 07:05 Dose: Not Given Latanoprost (Xalatan 0.005% Eye Drops -) 1 drop OU HS [facility] Last Admin: 08/21/19 21:28 Dose: 1 drop Mirtazapine (Remeron -) 15 mg PO HS [facility] Last Admin: 08/21/19 21:27 Dose: 15 mg Sitagliptin Phosphate (Januvia -) 100 mg PO DAILY@0700 [facility] Last Admin: 08/22/19 07:06 Dose: 100 mg Tamsulosin HCl (Flomax -) 0.4 mg PO DAILY@0830 [facility] Last Admin: 08/22/19 09:04 Dose: 0.4 mg Timolol Maleate (Timoptic 0.5%) 1 drop OU BID [facility] Last Admin: 08/22/19 09:43 Dose: 1 drop - Objective Vital Signs: Vital Signs Temperature 98.3 F 08/22/19 14:00 Pulse Rate 55 L 08/22/19 14:00 Respiratory Rate 20 08/22/19 14:00 Blood Pressure 137/73 08/22/19 14:00 O2 Sat by Pulse Oximetry (%) 98 08/22/19 09:00 Constitutional: Yes: No Distress, Calm Eyes: Yes: Conjunctiva Clear Cardiovascular: Yes: Regular Rate and Rhythm Respiratory: Yes: Regular Gastrointestinal: Yes: Normal Bowel Sounds, Soft Genitourinary: Yes: WNL Wound/Incision: Yes: Other (Rt foot dressing intact. RLE with mild warmth/edema , no tenderness) Labs: CBC, BMP 08/20/19 10:29 08/20/19 10:29 INR, PTT INR 1.10 (0.83-1.09) H 08/20/19 10:29 Laboratory Results - last 24 hr 08/21/19 08/22/19 16:25 06:35 POC Glucometer 183 73 Microbiology 08/20/19 10:29 Leg - Right Lower Gram Stain - Final 08/20/19 10:29 Leg - Right Lower Wound Culture - Final Proteus Mirabilis Enterococcus Faecalis 08/20/19 10:29 Blood - Peripheral Venous Blood Culture - Preliminary NO GROWTH OBTAINED AFTER 48 HOURS, INCUBATION TO CONTINUE FOR 3 DAYS. 08/20/19 10:29 Blood - Peripheral Venous Blood Culture - Preliminary NO GROWTH OBTAINED AFTER 48 HOURS, INCUBATION TO CONTINUE FOR 3 DAYS. Problem List - Problems (1) Ulcer of right lower leg Code(s): L97.919 - NON-PRS CHRONIC ULC UNSP PRT OF R LOW LEG W UNSP SEVERITY Qualifiers: (2) Dementia Code(s): F03.90 - UNSPECIFIED DEMENTIA WITHOUT BEHAVIORAL DISTURBANCE (3) Diabetes mellitus Code(s): E11.9 - TYPE 2 DIABETES MELLITUS WITHOUT COMPLICATIONS Qualifiers: Diabetes mellitus type: other specified (including HOMAR) Diabetes mellitus tractor mechanic helper insulin use: unspecified tractor mechanic helper insulin use status Diabetes mellitus complication status: with skin complications Diabetes mellitus complication detail: with foot ulcer Qualified Code(s): E13.621 - Other specified diabetes mellitus with foot ulcer; L97.509 - Non-pressure chronic ulcer of other part of unspecified foot with unspecified severity (4) PVD (peripheral vascular disease) Code(s): I73.9 - PERIPHERAL VASCULAR DISEASE, UNSPECIFIED (5) Type 2 diabetes mellitus with foot ulcer Code(s): E11.621 - TYPE 2 DIABETES MELLITUS WITH FOOT ULCER; L97.509 - NON- PRESSURE CHRONIC ULCER OTH PRT UNSP FOOT W UNSP SEVERITY Assessment/Plan Rt heel infected ulcer/Cellulitis -- wound culture results noted -- continue Zosyn -- esr 20, crp 0.7 -- continue wound care Monitor for improvement in swelling/warmth
--- NOTE | 2019-08-22 18:04 | CONSULT ---
- Consultation Wound Care / Jey Hernandez Called to allan 84yo male very well know to [facility] services with Dr. Jey Hernandez. Patient has h/o bilateral TMAs. would like for us to evaluate his right heel which has a developing ulcer. No complaints. Last Vital Signs Temp Pulse Resp BP Pulse Ox 98.3 F 55 L 20 137/73 98 08/22/19 14:00 08/22/19 14:00 08/22/19 14:00 08/22/19 14:00 08/22/19 09:00 CBC, BMP 08/20/19 10:29 08/20/19 10:29 Gen: alert. nad LE: Palpable bilat fem/DP/PT. Warm. Bilat TMAs healed well. Right heel with ~ 2.54 x 2.54 cm stage 1 pressure ulcer --> pink borders with granulation tissue. Central portion with fibrinous slough. Not malodorous. No erythema. No bogginess Problem List - Problems (1) Ulcer of right lower leg Assessment/Plan: Heel Ulcer/DTI Plan -Reposition every two hours while in bed -Air mattress recommended -Use drawsheets and Trendelenburg when repositioning to reduce friction and shear -Manageincontinence via timely cleansing, use of appropriate incontinence disposables and use of barrier ointment to intact skin -Ensure adequate hydration/nutrition, supplementation per primary team -Ensure off-loading to all bony areas (heels, ankles, hips and tailbone) with Allevyn/Optifoam -Clean open wounds with normal saline and apply (insert ointment/dressing) -Santyl to RIGHT heel daily -Cont medical management -No surgical intervention, reconsult PRN On behalf of Dr. Hernandez, thank you for the opportunity to participate in your patient's care. Code(s): L97.919 - NON-PRS CHRONIC ULC UNSP PRT OF R LOW LEG W UNSP SEVERITY Qualifiers: (2) Diabetes mellitus Code(s): E11.9 - TYPE 2 DIABETES MELLITUS WITHOUT COMPLICATIONS Qualifiers: Diabetes mellitus type: other specified (including HOMAR) Diabetes mellitus [facility] insulin use: unspecified long term care phlebotomist insulin use status Diabetes mellitus complication status: with skin complications Diabetes mellitus complication detail: with foot ulcer Qualified Code(s): E13.621 - Other specified diabetes mellitus with foot ulcer; L97.509 - Non-pressure chronic ulcer of other part of unspecified foot with unspecified severity (3) HTN (hypertension) Code(s): I10 - ESSENTIAL (PRIMARY) HYPERTENSION Qualifiers: Hypertension type: essential hypertension Qualified Code(s): I10 - Essential (primary) hypertension (4) PVD (peripheral vascular disease) Code(s): I73.9 - PERIPHERAL VASCULAR DISEASE, UNSPECIFIED Visit type - Case Type Case Type: ED Admission - New patient This patient is new to me today: Yes Date on this admission: 08/22/19
[2019-08-22] MEDS ORDERED: INSULIN (NOVOLOG MIX 70/30) 100 UNITS/ML MDV SQ ONE (19:36)
[2019-08-22] MEDS: MIRTAZAPINE 15 MG TABLET (FP) PO SCH (21:09)
[2019-08-22] MEDS: LATANOPROST 0.005% OPHTH SOLN 2.5ML BOTTLE OU SCH (21:09)
[2019-08-23] MEDS ORDERED: DEXTROSE 5%-WATER - 50 ML IVPB ONE ×3 (00:39→18:25)
[2019-08-23] MEDS ORDERED: PIPERACILLIN/TAZOBACTAM 3.375 GM VIAL IVPB ONE ×3 (00:39→18:25)
[2019-08-23] MEDS: PIPERACILLIN/TAZOB 3.375 GM 3.375 GM in DEXTROSE 5%-WATER - 50 ML IVPB SCH ×3 (02:09→18:29)
[2019-08-23] MEDS ORDERED: PT OWN MED DRAWER 7, Y5N ONE (06:10)
[2019-08-23] MEDS: INSULIN (NOVOLOG MIX 70/30) 100 UNITS/ML MDV SQ SCH ×2 (07:45→18:23)
[2019-08-23] MEDS: TAMSULOSIN HCL 0.4 MG CAP PO SCH (09:28)
--- NOTE | 2019-08-23 09:56 | PN ---
Progress Note, Physician Chief Complaint: ulcer Rt heal History of Present Illness: Case discussed with Dr spaulding regarding debridiment of the heal ulcer - Current Medication List Current Medications: Active Medications Amlodipine Besylate (Norvasc -) 10 mg PO DAILY [facility] Last Admin: 08/22/19 09:38 Dose: 10 mg Brimonidine Tartrate (Alphagan 0.2% -) 1 drop OU BID [facility] Last Admin: 08/22/19 21:09 Dose: 1 drop Donepezil HCl (Aricept -) 10 mg PO DAILY [facility] Last Admin: 08/22/19 09:39 Dose: 10 mg Dorzolamide HCl (Trusopt 2%) 1 drop OU BID [facility] Last Admin: 08/22/19 21:09 Dose: 1 drop Gabapentin (Neurontin -) 300 mg PO BID [facility] Last Admin: 08/22/19 21:09 Dose: 300 mg Piperacillin Sod/Tazobactam (Sod 3.375 gm/ Dextrose) 50 mls @ 100 mls/hr IVPB Q8H-IV [facility]; Protocol Last Admin: 08/23/19 02:09 Dose: 100 mls/hr Insulin Aspart (Novolog Mix 70/30 Vial) 25 units SQ BIDAC [facility] Last Admin: 08/23/19 07:45 Dose: 25 unit Latanoprost (Xalatan 0.005% Eye Drops -) 1 drop OU HS [facility] Last Admin: 08/22/19 21:09 Dose: 1 drop Mirtazapine (Remeron -) 15 mg PO HS [facility] Last Admin: 08/22/19 21:09 Dose: 15 mg Sitagliptin Phosphate (Januvia -) 100 mg PO DAILY@0700 [facility] Last Admin: 08/23/19 06:26 Dose: 100 mg Tamsulosin HCl (Flomax -) 0.4 mg PO DAILY@0830 [facility] Last Admin: 08/23/19 09:28 Dose: 0.4 mg Timolol Maleate (Timoptic 0.5%) 1 drop OU BID [facility] Last Admin: 08/22/19 21:09 Dose: 1 drop - Objective Vital Signs: Vital Signs Temperature 97.7 F 08/23/19 06:00 Pulse Rate 62 08/23/19 06:00 Respiratory Rate 20 08/23/19 06:00 Blood Pressure 162/78 08/23/19 06:00 O2 Sat by Pulse Oximetry (%) 98 08/22/19 21:00 Constitutional: Yes: No Distress Eyes: Yes: WNL HENT: Yes: WNL Neck: Yes: WNL Cardiovascular: Yes: WNL Respiratory: Yes: WNL Gastrointestinal: Yes: Normal Bowel Sounds ...Rectal Exam: Yes: Deferred Genitourinary: Yes: WNL Breast(s): Yes: WNL Musculoskeletal: Yes: WNL Wound/Incision: Yes: Clean/Dry Psychiatric: Yes: Alert Labs: CBC, BMP 08/20/19 10:29 08/20/19 10:29 INR, PTT INR 1.10 (0.83-1.09) H 08/20/19 10:29 Assessment/Plan Blood sugar under good controll Continue same trt
[2019-08-23] MEDS: amLODIPine BESYLATE 10 MG TABLET (FP) PO SCH (11:16)
[2019-08-23] MEDS: DONEPEZIL HCL 10 MG TABLET (FP) PO SCH (11:16)
[2019-08-23] MEDS: GABAPENTIN 300 MG CAPSULE (FP) PO SCH ×2 (11:17→22:25)
[2019-08-23] MEDS: BRIMONIDINE TARTRATE 0.2% OPHTHALMIC 5 ML BOTTLE OU SCH ×2 (11:21→22:27)
[2019-08-23] MEDS: TIMOLOL 0.5% OPHTHALMIC SOL 5 ML BOTTLE OU SCH ×2 (11:21→22:27)
[2019-08-23] MEDS: DORZOLAMIDE 2% HCL OPHTHALMIC SOLUTION 10 ML BOTTLE OU SCH ×2 (11:22→22:27)
--- NOTE | 2019-08-23 12:35 | PN ---
Progress Note, Physician History of Present Illness: stable improving drainage better - Current Medication List Current Medications: Active Medications Amlodipine Besylate (Norvasc -) 10 mg PO DAILY [facility] Last Admin: 08/23/19 11:16 Dose: 10 mg Brimonidine Tartrate (Alphagan 0.2% -) 1 drop OU BID [facility] Last Admin: 08/23/19 11:21 Dose: 1 drop Donepezil HCl (Aricept -) 10 mg PO DAILY [facility] Last Admin: 08/23/19 11:16 Dose: 10 mg Dorzolamide HCl (Trusopt 2%) 1 drop OU BID [facility] Last Admin: 08/23/19 11:22 Dose: 1 drop Gabapentin (Neurontin -) 300 mg PO BID [facility] Last Admin: 08/23/19 11:17 Dose: 300 mg Piperacillin Sod/Tazobactam (Sod 3.375 gm/ Dextrose) 50 mls @ 100 mls/hr IVPB Q8H-IV [facility]; Protocol Last Admin: 08/23/19 11:17 Dose: 100 mls/hr Insulin Aspart (Novolog Mix 70/30 Vial) 25 units SQ BIDAC [facility] Last Admin: 08/23/19 07:45 Dose: 25 unit Latanoprost (Xalatan 0.005% Eye Drops -) 1 drop OU HS [facility] Last Admin: 08/22/19 21:09 Dose: 1 drop Mirtazapine (Remeron -) 15 mg PO HS [facility] Last Admin: 08/22/19 21:09 Dose: 15 mg Sitagliptin Phosphate (Januvia -) 100 mg PO DAILY@0700 [facility] Last Admin: 08/23/19 06:26 Dose: 100 mg Tamsulosin HCl (Flomax -) 0.4 mg PO DAILY@0830 [facility] Last Admin: 08/23/19 09:28 Dose: 0.4 mg Timolol Maleate (Timoptic 0.5%) 1 drop OU BID [facility] Last Admin: 08/23/19 11:21 Dose: 1 drop - Objective Vital Signs: Vital Signs Temperature 97.7 F 08/23/19 06:00 Pulse Rate 62 08/23/19 06:00 Respiratory Rate 20 08/23/19 06:00 Blood Pressure 162/78 08/23/19 06:00 O2 Sat by Pulse Oximetry (%) 98 08/22/19 21:00 Constitutional: Yes: No Distress, Calm Cardiovascular: Yes: S1, S2 Respiratory: Yes: Regular, CTA Bilaterally Gastrointestinal: Yes: Normal Bowel Sounds, Soft Musculoskeletal: Yes: WNL Extremities: Yes: Erythema, Other Wound/Incision: Yes: Dressing Dry and Intact Neurological: Yes: Alert, Oriented Psychiatric: Yes: Alert, Oriented Labs: CBC, BMP 08/20/19 10:29 08/20/19 10:29 INR, PTT INR 1.10 (0.83-1.09) H 08/20/19 10:29 Assessment/Plan Problem List - Problems (1) Ulcer of right lower leg Code(s): L97.919 - NON-PRS CHRONIC ULC UNSP PRT OF R LOW LEG W UNSP SEVERITY Qualifiers: (2) Dementia Code(s): F03.90 - UNSPECIFIED DEMENTIA WITHOUT BEHAVIORAL DISTURBANCE (3) Diabetes mellitus Code(s): E11.9 - TYPE 2 DIABETES MELLITUS WITHOUT COMPLICATIONS Qualifiers: Diabetes mellitus type: other specified (including HOMAR) Diabetes mellitus [facility] insulin use: unspecified termite exterminator insulin use status Diabetes mellitus complication status: with skin complications Diabetes mellitus complication detail: with foot ulcer Qualified Code(s): E13.621 - Other specified diabetes mellitus with foot ulcer; L97.509 - Non-pressure chronic ulcer of other part of unspecified foot with unspecified severity (4) PVD (peripheral vascular disease) Code(s): I73.9 - PERIPHERAL VASCULAR DISEASE, UNSPECIFIED (5) Type 2 diabetes mellitus with foot ulcer Code(s): E11.621 - TYPE 2 DIABETES MELLITUS WITH FOOT ULCER; L97.509 - NON- PRESSURE CHRONIC ULCER OTH PRT UNSP FOOT W UNSP SEVERITY Assessment/Plan Rt heel infected ulcer -- wound culture isolates and foot xray results reviewed -- continue current antibiotic, f/u final result
--- NOTE | 2019-08-23 13:20 | PN ---
Progress Note (short form) - Note Progress Note: VAscular Surgery Pt seen and examined. Wound on right heel is clean. It is wet due to wet to dry dressings. Will start alginate daily. Will follow No need for debridement right now. Jey spaulding DO
[2019-08-23] MEDS: MIRTAZAPINE 15 MG TABLET (FP) PO SCH (22:25)
[2019-08-23] MEDS: LATANOPROST 0.005% OPHTH SOLN 2.5ML BOTTLE OU SCH (22:27)
[2019-08-24] MEDS ORDERED: PIPERACILLIN/TAZOBACTAM 3.375 GM VIAL IVPB ONE ×3 (03:19→15:43)
[2019-08-24] MEDS ORDERED: DEXTROSE 5%-WATER - 50 ML IVPB ONE ×3 (03:20→15:43)
[2019-08-24] MEDS: PIPERACILLIN/TAZOB 3.375 GM 3.375 GM in DEXTROSE 5%-WATER - 50 ML IVPB SCH ×3 (03:26→17:33)
[2019-08-24] MEDS: INSULIN (NOVOLOG MIX 70/30) 100 UNITS/ML MDV SQ SCH ×2 (06:51→17:33)
[2019-08-24] MEDS ORDERED: INSULIN (LEVEMIR) 100 UNITS/ML UNITS SQ ONE (07:05)
[2019-08-24] MEDS: TAMSULOSIN HCL 0.4 MG CAP PO SCH (08:50)
--- NOTE | 2019-08-24 09:21 | PN ---
Progress Note, Physician Chief Complaint: Feels OK History of Present Illness: Dr Hernandez,s follow up note noted Advised no debridement now - Current Medication List Current Medications: Active Medications Amlodipine Besylate (Norvasc -) 10 mg PO DAILY [facility] Last Admin: 08/23/19 11:16 Dose: 10 mg Brimonidine Tartrate (Alphagan 0.2% -) 1 drop OU BID [facility] Last Admin: 08/23/19 22:27 Dose: 1 drop Donepezil HCl (Aricept -) 10 mg PO DAILY [facility] Last Admin: 08/23/19 11:16 Dose: 10 mg Dorzolamide HCl (Trusopt 2%) 1 drop OU BID [facility] Last Admin: 08/23/19 22:27 Dose: 1 drop Gabapentin (Neurontin -) 300 mg PO BID [facility] Last Admin: 08/23/19 22:25 Dose: 300 mg Piperacillin Sod/Tazobactam (Sod 3.375 gm/ Dextrose) 50 mls @ 100 mls/hr IVPB Q8H-IV [facility]; Protocol Last Admin: 08/24/19 03:26 Dose: 100 mls/hr Insulin Aspart (Novolog Mix 70/30 Vial) 25 units SQ BIDAC [facility] Last Admin: 08/24/19 06:51 Dose: 25 unit Latanoprost (Xalatan 0.005% Eye Drops -) 1 drop OU HS [facility] Last Admin: 08/23/19 22:27 Dose: 1 drop Mirtazapine (Remeron -) 15 mg PO HS [facility] Last Admin: 08/23/19 22:25 Dose: 15 mg Sitagliptin Phosphate (Januvia -) 100 mg PO DAILY@0700 [facility] Last Admin: 08/24/19 06:51 Dose: 100 mg Tamsulosin HCl (Flomax -) 0.4 mg PO DAILY@0830 [facility] Last Admin: 08/23/19 09:28 Dose: 0.4 mg Timolol Maleate (Timoptic 0.5%) 1 drop OU BID [facility] Last Admin: 08/23/19 22:27 Dose: 1 drop - Objective Vital Signs: Vital Signs Temperature 98.4 F 08/24/19 06:00 Pulse Rate 60 08/24/19 06:00 Respiratory Rate 20 08/24/19 06:00 Blood Pressure 172/79 H 08/24/19 06:00 O2 Sat by Pulse Oximetry (%) 96 08/23/19 21:00 Constitutional: Yes: No Distress Eyes: Yes: WNL HENT: Yes: WNL Neck: Yes: WNL Cardiovascular: Yes: WNL Respiratory: Yes: WNL Gastrointestinal: Yes: WNL ...Rectal Exam: Yes: Deferred Genitourinary: Yes: WNL Edema: No Wound/Incision: Yes: Clean/Dry Labs: CBC, BMP 08/20/19 10:29 08/20/19 10:29 INR, PTT INR 1.10 (0.83-1.09) H 08/20/19 10:29 Assessment/Plan Blood sugar good controll Continue same trt
[2019-08-24] MEDS: amLODIPine BESYLATE 10 MG TABLET (FP) PO SCH (10:12)
[2019-08-24] MEDS: GABAPENTIN 300 MG CAPSULE (FP) PO SCH ×2 (10:12→21:47)
[2019-08-24] MEDS: DONEPEZIL HCL 10 MG TABLET (FP) PO SCH (10:12)
[2019-08-24] MEDS: BRIMONIDINE TARTRATE 0.2% OPHTHALMIC 5 ML BOTTLE OU SCH ×2 (10:13→21:47)
[2019-08-24] MEDS: DORZOLAMIDE 2% HCL OPHTHALMIC SOLUTION 10 ML BOTTLE OU SCH ×2 (10:14→21:47)
[2019-08-24] MEDS: TIMOLOL 0.5% OPHTHALMIC SOL 5 ML BOTTLE OU SCH ×2 (10:53→21:48)
--- NOTE | 2019-08-24 11:53 | PN ---
Progress Note, Physician History of Present Illness: stable no new issues - Current Medication List Current Medications: Active Medications Amlodipine Besylate (Norvasc -) 10 mg PO DAILY [facility] Last Admin: 08/24/19 10:12 Dose: 10 mg Brimonidine Tartrate (Alphagan 0.2% -) 1 drop OU BID [facility] Last Admin: 08/24/19 10:13 Dose: 1 drop Donepezil HCl (Aricept -) 10 mg PO DAILY [facility] Last Admin: 08/24/19 10:12 Dose: 10 mg Dorzolamide HCl (Trusopt 2%) 1 drop OU BID [facility] Last Admin: 08/24/19 10:14 Dose: 1 drop Gabapentin (Neurontin -) 300 mg PO BID [facility] Last Admin: 08/24/19 10:12 Dose: 300 mg Piperacillin Sod/Tazobactam (Sod 3.375 gm/ Dextrose) 50 mls @ 100 mls/hr IVPB Q8H-IV [facility]; Protocol Last Admin: 08/24/19 10:12 Dose: 100 mls/hr Insulin Aspart (Novolog Mix 70/30 Vial) 25 units SQ BIDAC [facility] Last Admin: 08/24/19 06:51 Dose: 25 unit Latanoprost (Xalatan 0.005% Eye Drops -) 1 drop OU HS [facility] Last Admin: 08/23/19 22:27 Dose: 1 drop Mirtazapine (Remeron -) 15 mg PO HS [facility] Last Admin: 08/23/19 22:25 Dose: 15 mg Sitagliptin Phosphate (Januvia -) 100 mg PO DAILY@0700 [facility] Last Admin: 08/24/19 06:51 Dose: 100 mg Tamsulosin HCl (Flomax -) 0.4 mg PO DAILY@0830 [facility] Last Admin: 08/24/19 08:50 Dose: 0.4 mg Timolol Maleate (Timoptic 0.5%) 1 drop OU BID [facility] Last Admin: 08/23/19 22:27 Dose: 1 drop - Objective Vital Signs: Vital Signs Temperature 98.4 F 08/24/19 06:00 Pulse Rate 60 08/24/19 06:00 Respiratory Rate 20 08/24/19 06:00 Blood Pressure 172/79 H 08/24/19 06:00 O2 Sat by Pulse Oximetry (%) 96 08/23/19 21:00 Constitutional: Yes: No Distress, Calm Cardiovascular: Yes: S1, S2 Respiratory: Yes: Regular, CTA Bilaterally Gastrointestinal: Yes: Normal Bowel Sounds, Soft Musculoskeletal: Yes: WNL Extremities: Yes: Other Wound/Incision: Yes: Dressing Dry and Intact Neurological: Yes: Alert, Oriented Psychiatric: Yes: Alert, Oriented Labs: CBC, BMP 08/20/19 10:29 08/20/19 10:29 INR, PTT INR 1.10 (0.83-1.09) H 08/20/19 10:29 Assessment/Plan Problem List - Problems (1) Ulcer of right lower leg Code(s): L97.919 - NON-PRS CHRONIC ULC UNSP PRT OF R LOW LEG W UNSP SEVERITY Qualifiers: (2) Dementia Code(s): F03.90 - UNSPECIFIED DEMENTIA WITHOUT BEHAVIORAL DISTURBANCE (3) Diabetes mellitus Code(s): E11.9 - TYPE 2 DIABETES MELLITUS WITHOUT COMPLICATIONS Qualifiers: Diabetes mellitus type: other specified (including HOMAR) Diabetes mellitus [facility] insulin use: unspecified lobsterman insulin use status Diabetes mellitus complication status: with skin complications Diabetes mellitus complication detail: with foot ulcer Qualified Code(s): E13.621 - Other specified diabetes mellitus with foot ulcer; L97.509 - Non-pressure chronic ulcer of other part of unspecified foot with unspecified severity (4) PVD (peripheral vascular disease) Code(s): I73.9 - PERIPHERAL VASCULAR DISEASE, UNSPECIFIED (5) Type 2 diabetes mellitus with foot ulcer Code(s): E11.621 - TYPE 2 DIABETES MELLITUS WITH FOOT ULCER; L97.509 - NON- PRESSURE CHRONIC ULCER OTH PRT UNSP FOOT W UNSP SEVERITY Assessment/Plan Rt heel infected ulcer -- wound culture isolates and foot xray results reviewed -- continue current antibiotic,
[2019-08-24] MEDS ORDERED: PT OWN MED DRAWER 7, Y5N ONE (17:35)
[2019-08-24] MEDS ORDERED: INSULIN (NOVOLOG MIX 70/30) 100 UNITS/ML MDV SQ ONE (17:35)
[2019-08-24] MEDS: LATANOPROST 0.005% OPHTH SOLN 2.5ML BOTTLE OU SCH (21:47)
[2019-08-24] MEDS: MIRTAZAPINE 15 MG TABLET (FP) PO SCH (21:47)
[2019-08-25] MEDS ORDERED: DEXTROSE 5%-WATER - 50 ML IVPB ONE ×3 (02:06→17:52)
[2019-08-25] MEDS ORDERED: PIPERACILLIN/TAZOBACTAM 3.375 GM VIAL IVPB ONE ×3 (02:06→17:52)
[2019-08-25] MEDS: PIPERACILLIN/TAZOB 3.375 GM 3.375 GM in DEXTROSE 5%-WATER - 50 ML IVPB SCH ×3 (02:46→18:14)
[2019-08-25] MEDS: INSULIN (NOVOLOG MIX 70/30) 100 UNITS/ML MDV SQ SCH ×2 (06:47→16:39)
[2019-08-25] MEDS ORDERED: INSULIN (NOVOLOG) ASPART 100 UNITS/ML 10ML VIAL ONE (06:56)
--- NOTE | 2019-08-25 09:28 | PN ---
Progress Note, Physician Chief Complaint: Feels better History of Present Illness: Wound care done,the necrotic cleaned - Current Medication List Current Medications: Active Medications Amlodipine Besylate (Norvasc -) 10 mg PO DAILY [facility] Last Admin: 08/24/19 10:12 Dose: 10 mg Brimonidine Tartrate (Alphagan 0.2% -) 1 drop OU BID [facility] Last Admin: 08/24/19 21:47 Dose: 1 drop Donepezil HCl (Aricept -) 10 mg PO DAILY [facility] Last Admin: 08/24/19 10:12 Dose: 10 mg Dorzolamide HCl (Trusopt 2%) 1 drop OU BID [facility] Last Admin: 08/24/19 21:47 Dose: 1 drop Gabapentin (Neurontin -) 300 mg PO BID [facility] Last Admin: 08/24/19 21:47 Dose: 300 mg Piperacillin Sod/Tazobactam (Sod 3.375 gm/ Dextrose) 50 mls @ 100 mls/hr IVPB Q8H-IV [facility]; Protocol Last Admin: 08/25/19 02:46 Dose: 100 mls/hr Insulin Aspart (Novolog Mix 70/30 Vial) 25 units SQ BIDAC [facility] Last Admin: 08/25/19 06:47 Dose: 25 unit Latanoprost (Xalatan 0.005% Eye Drops -) 1 drop OU [facility] Last Admin: 08/24/19 21:47 Dose: 1 drop Metoprolol Succinate (Toprol Xl -) 100 mg PO DAILY [facility] Mirtazapine (Remeron -) 15 mg PO HS [facility] Last Admin: 08/24/19 21:47 Dose: 15 mg Sitagliptin Phosphate (Januvia -) 100 mg PO DAILY@0700 [facility] Last Admin: 08/25/19 06:47 Dose: 100 mg Tamsulosin HCl (Flomax -) 0.4 mg PO DAILY@0830 [facility] Last Admin: 08/24/19 08:50 Dose: 0.4 mg Timolol Maleate (Timoptic 0.5%) 1 drop OU BID [facility] Last Admin: 08/24/19 21:48 Dose: 1 drop - Objective Vital Signs: Vital Signs Temperature 98.3 F 08/25/19 06:57 Pulse Rate 49 L 08/25/19 06:57 Respiratory Rate 20 08/25/19 06:57 Blood Pressure 167/75 08/25/19 06:57 O2 Sat by Pulse Oximetry (%) 98 08/24/19 21:00 Constitutional: Yes: No Distress Eyes: Yes: WNL HENT: Yes: WNL Neck: Yes: WNL Cardiovascular: Yes: WNL Respiratory: Yes: WNL Gastrointestinal: Yes: WNL ...Rectal Exam: Yes: Deferred Wound/Incision: Yes: Clean/Dry Neurological: Yes: Alert Labs: CBC, BMP 08/20/19 10:29 08/20/19 10:29 INR, PTT INR 1.10 (0.83-1.09) H 08/20/19 10:29 Assessment/Plan Continue same trt
[2019-08-25] MEDS: TAMSULOSIN HCL 0.4 MG CAP PO SCH (09:51)
[2019-08-25] MEDS: DONEPEZIL HCL 10 MG TABLET (FP) PO SCH (09:51)
[2019-08-25] MEDS: GABAPENTIN 300 MG CAPSULE (FP) PO SCH ×2 (09:52→22:00)
[2019-08-25] MEDS: amLODIPine BESYLATE 10 MG TABLET (FP) PO SCH (09:52)
[2019-08-25] MEDS: TIMOLOL 0.5% OPHTHALMIC SOL 5 ML BOTTLE OU SCH ×2 (09:53→22:05)
[2019-08-25] MEDS: DORZOLAMIDE 2% HCL OPHTHALMIC SOLUTION 10 ML BOTTLE OU SCH ×2 (09:53→22:05)
[2019-08-25] MEDS: BRIMONIDINE TARTRATE 0.2% OPHTHALMIC 5 ML BOTTLE OU SCH ×2 (09:54→22:04)
--- NOTE | 2019-08-25 11:14 | PN ---
Progress Note, Physician History of Present Illness: stable no new issues - Current Medication List Current Medications: Active Medications Amlodipine Besylate (Norvasc -) 10 mg PO DAILY [facility] Last Admin: 08/25/19 09:52 Dose: 10 mg Brimonidine Tartrate (Alphagan 0.2% -) 1 drop OU BID [facility] Last Admin: 08/25/19 09:54 Dose: 1 drop Donepezil HCl (Aricept -) 10 mg PO DAILY [facility] Last Admin: 08/25/19 09:51 Dose: 10 mg Dorzolamide HCl (Trusopt 2%) 1 drop OU BID [facility] Last Admin: 08/25/19 09:53 Dose: 1 drop Gabapentin (Neurontin -) 300 mg PO BID [facility] Last Admin: 08/25/19 09:52 Dose: 300 mg Piperacillin Sod/Tazobactam (Sod 3.375 gm/ Dextrose) 50 mls @ 100 mls/hr IVPB Q8H-IV [facility]; Protocol Last Admin: 08/25/19 09:52 Dose: 100 mls/hr Insulin Aspart (Novolog Mix 70/30 Vial) 25 units SQ BIDAC [facility] Last Admin: 08/25/19 06:47 Dose: 25 unit Latanoprost (Xalatan 0.005% Eye Drops -) 1 drop OU HS [facility] Last Admin: 08/24/19 21:47 Dose: 1 drop Metoprolol Succinate (Toprol Xl -) 100 mg PO DAILY [facility] Last Admin: 08/25/19 09:52 Dose: 100 mg Mirtazapine (Remeron -) 15 mg PO HS [facility] Last Admin: 08/24/19 21:47 Dose: 15 mg Sitagliptin Phosphate (Januvia -) 100 mg PO DAILY@0700 [facility] Last Admin: 08/25/19 06:47 Dose: 100 mg Tamsulosin HCl (Flomax -) 0.4 mg PO DAILY@0830 [facility] Last Admin: 08/25/19 09:51 Dose: 0.4 mg Timolol Maleate (Timoptic 0.5%) 1 drop OU BID [facility] Last Admin: 08/25/19 09:53 Dose: 1 drop - Objective Vital Signs: Vital Signs Temperature 98.3 F 08/25/19 06:57 Pulse Rate 49 L 08/25/19 06:57 Respiratory Rate 20 08/25/19 06:57 Blood Pressure 167/75 08/25/19 06:57 O2 Sat by Pulse Oximetry (%) 96 08/25/19 09:00 Constitutional: Yes: No Distress, Calm Cardiovascular: Yes: S1, S2 Respiratory: Yes: Regular, CTA Bilaterally Gastrointestinal: Yes: Normal Bowel Sounds, Soft Musculoskeletal: Yes: WNL Extremities: Yes: Other Wound/Incision: Yes: Dressing Dry and Intact Neurological: Yes: Alert, Oriented Psychiatric: Yes: Alert, Oriented Labs: CBC, BMP 08/20/19 10:29 08/20/19 10:29 INR, PTT INR 1.10 (0.83-1.09) H 08/20/19 10:29 Assessment/Plan Problem List - Problems (1) Ulcer of right lower leg Code(s): L97.919 - NON-PRS CHRONIC ULC UNSP PRT OF R LOW LEG W UNSP SEVERITY Qualifiers: (2) Dementia Code(s): F03.90 - UNSPECIFIED DEMENTIA WITHOUT BEHAVIORAL DISTURBANCE (3) Diabetes mellitus Code(s): E11.9 - TYPE 2 DIABETES MELLITUS WITHOUT COMPLICATIONS Qualifiers: Diabetes mellitus type: other specified (including HOMAR) Diabetes mellitus account maintenance representative insulin use: unspecified account maintenance representative insulin use status Diabetes mellitus complication status: with skin complications Diabetes mellitus complication detail: with foot ulcer Qualified Code(s): E13.621 - Other specified diabetes mellitus with foot ulcer; L97.509 - Non-pressure chronic ulcer of other part of unspecified foot with unspecified severity (4) PVD (peripheral vascular disease) Code(s): I73.9 - PERIPHERAL VASCULAR DISEASE, UNSPECIFIED (5) Type 2 diabetes mellitus with foot ulcer Code(s): E11.621 - TYPE 2 DIABETES MELLITUS WITH FOOT ULCER; L97.509 - NON- PRESSURE CHRONIC ULCER OTH PRT UNSP FOOT W UNSP SEVERITY Assessment/Plan Rt heel infected ulcer -- wound culture isolates and foot xray results reviewed -- continue current antibiotic,
[2019-08-25] MEDS: MIRTAZAPINE 15 MG TABLET (FP) PO SCH (22:00)
[2019-08-25] MEDS: LATANOPROST 0.005% OPHTH SOLN 2.5ML BOTTLE OU SCH (22:05)
[2019-08-26] MEDS ORDERED: DEXTROSE 5%-WATER - 50 ML IVPB ONE ×3 (02:57→17:43)
[2019-08-26] MEDS ORDERED: PIPERACILLIN/TAZOBACTAM 3.375 GM VIAL IVPB ONE ×3 (02:57→17:42)
[2019-08-26] MEDS: PIPERACILLIN/TAZOB 3.375 GM 3.375 GM in DEXTROSE 5%-WATER - 50 ML IVPB SCH ×3 (03:00→17:45)
[2019-08-26] MEDS ORDERED: PT OWN MED DRAWER 7, Y5N ONE ×3 (06:35→11:17)
[2019-08-26] MEDS: INSULIN (NOVOLOG MIX 70/30) 100 UNITS/ML MDV SQ SCH ×2 (08:01→16:20)
--- NOTE | 2019-08-26 09:26 | PN ---
Progress Note, Physician Chief Complaint: feels good - Current Medication List Current Medications: Active Medications Amlodipine Besylate (Norvasc -) 10 mg PO DAILY [facility] Last Admin: 08/25/19 09:52 Dose: 10 mg Brimonidine Tartrate (Alphagan 0.2% -) 1 drop OU BID [facility] Last Admin: 08/25/19 22:04 Dose: 1 drop Donepezil HCl (Aricept -) 10 mg PO DAILY [facility] Last Admin: 08/25/19 09:51 Dose: 10 mg Dorzolamide HCl (Trusopt 2%) 1 drop OU BID [facility] Last Admin: 08/25/19 22:05 Dose: 1 drop Gabapentin (Neurontin -) 300 mg PO BID [facility] Last Admin: 08/25/19 22:00 Dose: 300 mg Piperacillin Sod/Tazobactam (Sod 3.375 gm/ Dextrose) 50 mls @ 100 mls/hr IVPB Q8H-IV [facility]; Protocol Last Admin: 08/26/19 03:00 Dose: 100 mls/hr Insulin Aspart (Novolog Mix 70/30 Vial) 25 units SQ BIDAC [facility] Last Admin: 08/26/19 08:01 Dose: 25 unit Latanoprost (Xalatan 0.005% Eye Drops -) 1 drop OU HS [facility] Last Admin: 08/25/19 22:05 Dose: 1 drop Metoprolol Succinate (Toprol Xl -) 100 mg PO DAILY [facility] Last Admin: 08/25/19 09:52 Dose: 100 mg Mirtazapine (Remeron -) 15 mg PO HS [facility] Last Admin: 08/25/19 22:00 Dose: 15 mg Sitagliptin Phosphate (Januvia -) 100 mg PO DAILY@0700 [facility] Last Admin: 08/26/19 06:58 Dose: 100 mg Tamsulosin HCl (Flomax -) 0.4 mg PO DAILY@0830 [facility] Last Admin: 08/25/19 09:51 Dose: 0.4 mg Timolol Maleate (Timoptic 0.5%) 1 drop OU BID [facility] Last Admin: 08/25/19 22:05 Dose: 1 drop - Objective Vital Signs: Vital Signs Temperature 98.0 F 08/26/19 06:00 Pulse Rate 52 L 08/26/19 06:00 Respiratory Rate 18 08/26/19 06:00 Blood Pressure 148/74 08/26/19 06:00 O2 Sat by Pulse Oximetry (%) 98 08/25/19 21:00 Constitutional: Yes: No Distress Eyes: Yes: WNL HENT: Yes: WNL Neck: Yes: WNL Cardiovascular: Yes: WNL Respiratory: Yes: WNL Gastrointestinal: Yes: WNL ...Rectal Exam: Yes: Deferred Wound/Incision: Yes: Dressing Dry and Intact Neurological: Yes: Alert Labs: CBC, BMP 08/20/19 10:29 08/20/19 10:29 INR, PTT INR 1.10 (0.83-1.09) H 08/20/19 10:29
--- NOTE | 2019-08-26 10:20 | PN ---
Progress Note, Physician History of Present Illness: stable no new issues - Current Medication List Current Medications: Active Medications Amlodipine Besylate (Norvasc -) 10 mg PO DAILY [facility] Last Admin: 08/25/19 09:52 Dose: 10 mg Brimonidine Tartrate (Alphagan 0.2% -) 1 drop OU BID [facility] Last Admin: 08/25/19 22:04 Dose: 1 drop Donepezil HCl (Aricept -) 10 mg PO DAILY [facility] Last Admin: 08/25/19 09:51 Dose: 10 mg Dorzolamide HCl (Trusopt 2%) 1 drop OU BID [facility] Last Admin: 08/25/19 22:05 Dose: 1 drop Gabapentin (Neurontin -) 300 mg PO BID [facility] Last Admin: 08/25/19 22:00 Dose: 300 mg Piperacillin Sod/Tazobactam (Sod 3.375 gm/ Dextrose) 50 mls @ 100 mls/hr IVPB Q8H-IV [facility]; Protocol Last Admin: 08/26/19 03:00 Dose: 100 mls/hr Insulin Aspart (Novolog Mix 70/30 Vial) 25 units SQ BIDAC [facility] Last Admin: 08/26/19 08:01 Dose: 25 unit Latanoprost (Xalatan 0.005% Eye Drops -) 1 drop OU HS [facility] Last Admin: 08/25/19 22:05 Dose: 1 drop Metoprolol Succinate (Toprol Xl -) 100 mg PO DAILY [facility] Last Admin: 08/25/19 09:52 Dose: 100 mg Mirtazapine (Remeron -) 15 mg PO HS [facility] Last Admin: 08/25/19 22:00 Dose: 15 mg Sitagliptin Phosphate (Januvia -) 100 mg PO DAILY@0700 [facility] Last Admin: 08/26/19 06:58 Dose: 100 mg Tamsulosin HCl (Flomax -) 0.4 mg PO DAILY@0830 [facility] Last Admin: 08/25/19 09:51 Dose: 0.4 mg Timolol Maleate (Timoptic 0.5%) 1 drop OU BID [facility] Last Admin: 08/25/19 22:05 Dose: 1 drop - Objective Vital Signs: Vital Signs Temperature 98.0 F 08/26/19 06:00 Pulse Rate 52 L 08/26/19 06:00 Respiratory Rate 18 08/26/19 06:00 Blood Pressure 148/74 08/26/19 06:00 O2 Sat by Pulse Oximetry (%) 98 08/25/19 21:00 Constitutional: Yes: No Distress, Calm Cardiovascular: Yes: Regular Rate and Rhythm Respiratory: Yes: Regular, CTA Bilaterally Gastrointestinal: Yes: Normal Bowel Sounds, Soft Musculoskeletal: Yes: WNL Extremities: Yes: WNL Wound/Incision: Yes: Dressing Dry and Intact Neurological: Yes: Alert, Oriented Psychiatric: Yes: Alert, Oriented Labs: CBC, BMP 08/20/19 10:29 08/20/19 10:29 INR, PTT INR 1.10 (0.83-1.09) H 08/20/19 10:29 Assessment/Plan Problem List - Problems (1) Ulcer of right lower leg Code(s): L97.919 - NON-PRS CHRONIC ULC UNSP PRT OF R LOW LEG W UNSP SEVERITY Qualifiers: (2) Dementia Code(s): F03.90 - UNSPECIFIED DEMENTIA WITHOUT BEHAVIORAL DISTURBANCE (3) Diabetes mellitus Code(s): E11.9 - TYPE 2 DIABETES MELLITUS WITHOUT COMPLICATIONS Qualifiers: Diabetes mellitus type: other specified (including HOMAR) Diabetes 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 insulin use: unspecified shelter insulin use status Diabetes mellitus complication status: with skin complications Diabetes mellitus complication detail: with foot ulcer Qualified Code(s): E13.621 - Other specified diabetes mellitus with foot ulcer; L97.509 - Non-pressure chronic ulcer of other part of unspecified foot with unspecified severity (4) PVD (peripheral vascular disease) Code(s): I73.9 - PERIPHERAL VASCULAR DISEASE, UNSPECIFIED (5) Type 2 diabetes mellitus with foot ulcer Code(s): E11.621 - TYPE 2 DIABETES MELLITUS WITH FOOT ULCER; L97.509 - NON- PRESSURE CHRONIC ULCER OTH PRT UNSP FOOT W UNSP SEVERITY Assessment/Plan continue abx will see the wound and see if the patient can be switched to oral still some drain from the wound
[2019-08-26] MEDS: TAMSULOSIN HCL 0.4 MG CAP PO SCH (11:20)
[2019-08-26] MEDS: GABAPENTIN 300 MG CAPSULE (FP) PO SCH ×2 (11:20→21:45)
[2019-08-26] MEDS: amLODIPine BESYLATE 10 MG TABLET (FP) PO SCH (11:20)
[2019-08-26] MEDS: DONEPEZIL HCL 10 MG TABLET (FP) PO SCH (11:21)
[2019-08-26] MEDS: TIMOLOL 0.5% OPHTHALMIC SOL 5 ML BOTTLE OU SCH ×2 (11:22→21:45)
[2019-08-26] MEDS: BRIMONIDINE TARTRATE 0.2% OPHTHALMIC 5 ML BOTTLE OU SCH ×2 (11:22→21:45)
[2019-08-26] MEDS: DORZOLAMIDE 2% HCL OPHTHALMIC SOLUTION 10 ML BOTTLE OU SCH ×2 (11:23→21:44)
[2019-08-26] MEDS: LATANOPROST 0.005% OPHTH SOLN 2.5ML BOTTLE OU SCH (21:44)
[2019-08-26] MEDS: MIRTAZAPINE 15 MG TABLET (FP) PO SCH (21:45)
[2019-08-27] MEDS ORDERED: PIPERACILLIN/TAZOBACTAM 3.375 GM VIAL IVPB ONE ×2 (02:49→09:08)
[2019-08-27] MEDS ORDERED: DEXTROSE 5%-WATER - 50 ML IVPB ONE ×2 (02:49→09:08)
[2019-08-27] MEDS: PIPERACILLIN/TAZOB 3.375 GM 3.375 GM in DEXTROSE 5%-WATER - 50 ML IVPB SCH ×2 (03:00→09:18)
[2019-08-27] MEDS: INSULIN (NOVOLOG MIX 70/30) 100 UNITS/ML MDV SQ SCH (07:01)
[2019-08-27 07:44] LABS: HEMATOCRIT 37.7 % (35.4-49); HEMOGLOBIN 12.5 GM/dL (11.7-16.9); MCH 24.9 pg (25.7-33.7); MCHC 33.1 g/dl (32.0-35.9); MEAN CELL VOLUME 75.3 fl (80-96); MEAN PLT VOLUME 8.6 fl (7.5-11.1); PLATELET COUNT 218 K/MM3 (134-434); RBC 5.01 M/mm3 (4.00-5.60); RDW 16.3 % (11.9-15.9); WHITE BLOOD COUNT 7.9 K/mm3 (4.0-10.0)
[2019-08-27 08:25] LABS: ALBUMIN 3.1 g/dl (3.4-5.0); BILIRUBIN,TOTAL 0.4 mg/dL (0.2-1); BLOOD UREA NITROGEN 20.6 mg/dL (7-18); CALCIUM 8.7 mg/dL (8.5-10.1); CREATININE 1.4 mg/dL (0.55-1.3); POTASSIUM 3.6 mmol/L (3.5-5.1); TOT PROT 6.3 g/dl (6.4-8.2)
[2019-08-27] MEDS: TAMSULOSIN HCL 0.4 MG CAP PO SCH (09:01)
[2019-08-27] MEDS: DONEPEZIL HCL 10 MG TABLET (FP) PO SCH (09:18)
[2019-08-27] MEDS: amLODIPine BESYLATE 10 MG TABLET (FP) PO SCH (09:18)
[2019-08-27] MEDS: GABAPENTIN 300 MG CAPSULE (FP) PO SCH (09:18)
--- NOTE | 2019-08-27 09:20 | DS ---
Physical Examination Vital Signs: Vital Signs Temperature 98.2 F 08/27/19 06:00 Pulse Rate 48 L 08/27/19 06:00 Respiratory Rate 20 08/27/19 06:00 Blood Pressure 164/70 08/27/19 06:00 O2 Sat by Pulse Oximetry (%) 95 08/26/19 21:00 Findings/Remarks: Diabetic with PVD admitted with Rt heal ulcer Treated with IV antibiotics,wound healing DC home with PO antibiotics Blood sugar under good control Constitutional: Yes: No Distress Eyes: Yes: WNL HENT: Yes: WNL Neck: Yes: WNL Cardiovascular: Yes: WNL Respiratory: Yes: WNL Gastrointestinal: Yes: WNL Renal/: Yes: WNL Edema: No Wound/Incision: Yes: Clean/Dry Neurological: Yes: Oriented Psychiatric: Yes: Alert Labs: CBC, BMP 08/27/19 06:55 08/27/19 06:55 Discharge Summary Problems reviewed: Yes Reason For Visit: ULCER OF RIGHT LOWER LEG Current Active Problems Cellulitis in diabetic foot (Acute) Ulcer of right lower leg (Acute) Condition: Fair - Instructions Referrals: Darron Presley MD [Primary Care Provider] - - Home Medications Comprehensive Discharge Medication List: Ambulatory Orders Amlodipine Besylate 10 mg PO DAILY 10/22/18 Gabapentin 300 mg PO BID 10/22/18 Insulin Lispro Protamin/Lispro [Humalog Mix 75-25 Kwikpen] 27 unit SQ BID Memantine HCl [Namenda -] 10 mg PO BID 10/22/18 Metoprolol Succinate [Toprol Xl] 100 mg PO DAILY 10/22/18 Mirtazapine [Remeron -] 15 mg PO HS 10/22/18 Tamsulosin HCl [Flomax -] 0.4 mg PO DAILY 10/22/18 Valsartan 160 mg PO BID 10/22/18 metFORMIN HCL [Metformin ER Osmotic] 500 mg PO BID 10/22/18 Brimonidine Tartrate [Alphagan P 0.1% -] 1 drop OU BID drops 11/04/18 Clopidogrel Bisulfate [Plavix] 1 tab PO DAILY 12/11/18 Doxycycline Calcium 100 mg PO BID 08/13/19
[2019-08-27] MEDS: TIMOLOL 0.5% OPHTHALMIC SOL 5 ML BOTTLE OU SCH (09:21)
[2019-08-27] MEDS: BRIMONIDINE TARTRATE 0.2% OPHTHALMIC 5 ML BOTTLE OU SCH (09:21)
[2019-08-27] MEDS: DORZOLAMIDE 2% HCL OPHTHALMIC SOLUTION 10 ML BOTTLE OU SCH (09:23)
[2019-08-27] MEDS ORDERED: PT OWN MED DRAWER 7, Y5N ONE (09:46)
[2019-08-27 11:30] VITALS: BP 152/69; PULSE 53; TEMP 98.5
--- NOTE | 2019-08-27 12:05 | PN ---
Progress Note, Physician History of Present Illness: stable no new issues - Current Medication List Current Medications: Active Medications Amlodipine Besylate (Norvasc -) 10 mg PO DAILY [facility] Last Admin: 08/27/19 09:18 Dose: 10 mg Amoxicillin/Clavulanate Potassium (Augmentin - 875mg Tablet) 1 tab PO BID@0800, 1730 [facility] Brimonidine Tartrate (Alphagan 0.2% -) 1 drop OU BID [facility] Last Admin: 08/27/19 09:21 Dose: 1 drop Donepezil HCl (Aricept -) 10 mg PO DAILY [facility] Last Admin: 08/27/19 09:18 Dose: 10 mg Dorzolamide HCl (Trusopt 2%) 1 drop OU BID [facility] Last Admin: 08/27/19 09:23 Dose: 1 drop Gabapentin (Neurontin -) 300 mg PO BID [facility] Last Admin: 08/27/19 09:18 Dose: 300 mg Piperacillin Sod/Tazobactam (Sod 3.375 gm/ Dextrose) 50 mls @ 100 mls/hr IVPB Q8H-IV [facility]; Protocol Last Admin: 08/27/19 09:18 Dose: 100 mls/hr Insulin Aspart (Novolog Mix 70/30 Vial) 25 units SQ BIDAC [facility] Last Admin: 08/27/19 07:01 Dose: 25 unit Latanoprost (Xalatan 0.005% Eye Drops -) 1 drop OU [facility] Last Admin: 08/26/19 21:44 Dose: 1 drop Metoprolol Succinate (Toprol Xl -) 100 mg PO DAILY [facility] Last Admin: 08/27/19 09:47 Dose: 100 mg Mirtazapine (Remeron -) 15 mg PO HS [facility] Last Admin: 08/26/19 21:45 Dose: 15 mg Sitagliptin Phosphate (Januvia -) 100 mg PO DAILY@0700 [facility] Last Admin: 08/27/19 07:01 Dose: 100 mg Tamsulosin HCl (Flomax -) 0.4 mg PO DAILY@0830 [facility] Last Admin: 08/27/19 09:01 Dose: 0.4 mg Timolol Maleate (Timoptic 0.5%) 1 drop OU BID [facility] Last Admin: 08/27/19 09:21 Dose: 1 drop - Objective Vital Signs: Vital Signs Temperature 98.5 F 08/27/19 09:00 Pulse Rate 53 L 08/27/19 09:00 Respiratory Rate 20 08/27/19 09:00 Blood Pressure 152/69 08/27/19 09:00 O2 Sat by Pulse Oximetry (%) 96 08/27/19 09:00 Constitutional: Yes: No Distress, Calm Cardiovascular: Yes: S1, S2 Respiratory: Yes: Regular, CTA Bilaterally Gastrointestinal: Yes: Normal Bowel Sounds, Soft Musculoskeletal: Yes: WNL Extremities: Yes: Other Wound/Incision: Yes: Dressing Dry and Intact Neurological: Yes: Alert, Oriented Psychiatric: Yes: Alert, Oriented Labs: CBC, BMP 08/27/19 06:55 08/27/19 06:55 INR, PTT INR 1.10 (0.83-1.09) H 08/20/19 10:29 Assessment/Plan Problem List - Problems (1) Ulcer of right lower leg Code(s): L97.919 - NON-PRS CHRONIC ULC UNSP PRT OF R LOW LEG W UNSP SEVERITY Qualifiers: (2) Dementia Code(s): F03.90 - UNSPECIFIED DEMENTIA WITHOUT BEHAVIORAL DISTURBANCE (3) Diabetes mellitus Code(s): E11.9 - TYPE 2 DIABETES MELLITUS WITHOUT COMPLICATIONS Qualifiers: Diabetes mellitus type: other specified (including HOMAR) 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: unspecified furnace 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 insulin use status Diabetes mellitus complication status: with skin complications Diabetes mellitus complication detail: with foot ulcer Qualified Code(s): E13.621 - Other specified diabetes mellitus with foot ulcer; L97.509 - Non-pressure chronic ulcer of other part of unspecified foot with unspecified severity (4) PVD (peripheral vascular disease) Code(s): I73.9 - PERIPHERAL VASCULAR DISEASE, UNSPECIFIED (5) Type 2 diabetes mellitus with foot ulcer Code(s): E11.621 - TYPE 2 DIABETES MELLITUS WITH FOOT ULCER; L97.509 - NON- PRESSURE CHRONIC ULCER OTH PRT UNSP FOOT W UNSP SEVERITY Assessment/Plan continue abx can change to oral augmentin 500 mg po bid for another 7 days
[2019-08-27] MEDS ORDERED: AMOX TR/POT CLAV 875MG/125MG TABLETS (FP) PO SCH (17:30)
== END 2019-08-27 12:56 | disposition home or self-care (01) | DRG 638 ==
LOC: JER 10:02 → JERBED 11:43 → J5S 14:51
PROVIDERS: ADMIT Internal Medicine; ATTEND Internal Medicine
DX: E11.621 Type 2 diabetes mellitus with foot ulcer (principal); L03.115 Cellulitis of right lower limb; L97.418 Non-pressure chronic ulcer of right heel and midfoot with other specified severity; I10 Essential (primary) hypertension; E78.5 Hyperlipidemia, unspecified; E11.51 Type 2 diabetes mellitus with diabetic peripheral angiopathy without gangrene; N40.0 Benign prostatic hyperplasia without lower urinary tract symptoms; G30.9 Alzheimer's disease, unspecified; F02.80 Dementia in other diseases classified elsewhere, unspecified severity, without behavioral disturbance, psychotic disturbance, mood disturbance, and anxiety; F41.8 Other specified anxiety disorders; B95.2 Enterococcus as the cause of diseases classified elsewhere; B96.4 Proteus (mirabilis) (morganii) as the cause of diseases classified elsewhere; Z89.422 Acquired absence of other left toe(s)
CPT/HCPCS: 36415; 73610-TC-RT-FY; 73630-TC-RT-FY; 80053; 82962; 83036; 85025; 85027; 85610; 85651; 85730; 86140; 86850; 86900; 86901; 87040; 87070; 87186; 87205; 93005; 93010; 99284-25; A6209; G0463-25

== ENCOUNTER 2021-02-07 17:09 | Inpatient (IN) | payer OTHER ==
[2021-02-07] MEDS ORDERED: SODIUM CHLORIDE 2,517 ML IV ONE (17:37)
[2021-02-07] MEDS ORDERED: ACETAMINOPHEN 1000 MG/100 ML VIAL (NON FORMULARY) IVPB ONE (17:41)
[2021-02-07] MEDS ORDERED: PIPERACILLIN/TAZOB 3.375 GM 3.375 GM in DEXTROSE 5%-WATER - 50 ML IVPB ONE (18:04)
[2021-02-07 18:32] LABS: BASO % 0.2 % (0-2.0); EOS % 0.7 % (0-4.5); HEMATOCRIT 35.8 % (35.4-49); HEMOGLOBIN 11.8 GM/dL (11.7-16.9); LYMPH % 5.9 % (8-40); MCH 24.7 pg (25.7-33.7); MCHC 32.8 g/dl (32.0-35.9); MEAN CELL VOLUME 75.2 fl (80-96); MEAN PLT VOLUME 8.5 fl (7.5-11.1); MONO % 6.4 % (3.8-10.2); NEUT % 86.8 % (42.8-82.8); PLATELET COUNT 275 K/MM3 (134-434); RBC 4.76 M/mm3 (4.00-5.60); RDW 16.5 % (11.9-15.9); WHITE BLOOD COUNT 14.3 K/mm3 (4.0-10.0)
[2021-02-07] MEDS ORDERED: PIPERACILLIN/TAZOB 3.375 GM 3.375 GM/50 ML BAG IVPB ONE (18:34)
[2021-02-07 18:38] LABS: INR 1.07 (0.83-1.09); PROTHROMBIN TIME (PATIENT) 13.1 SEC (9.7-13.0)
[2021-02-07 18:41] LABS: ACTIVATED PTT 30.2 SECONDS (25.2-36.5)
[2021-02-07 18:46] LABS: CALCIUM 8.7 mg/dL (8.5-10.1); CHLORIDE 98 mmol/L (98-107); SODIUM 131 mmol/L (136-145)
[2021-02-07 18:48] LABS: ALBUMIN 3.5 g/dl (3.4-5.0); ANION GAP 10 MMOL/L (8-16); BLOOD UREA NITROGEN 14.8 mg/dL (7-18); CO2 24 mmol/L (21-32); GLUCOSE,RANDOM 269 mg/dL (74-106)
[2021-02-07 18:51] LABS: CREATININE 1.5 mg/dL (0.55-1.3); SGOT/AST 25 U/L (15-37); SGPT/ALT 36 U/L (13-61)
[2021-02-07 18:53] LABS: ALK PHOS 143 U/L (45-117); BILIRUBIN,TOTAL 0.4 mg/dL (0.2-1); TOT PROT 7.5 g/dl (6.4-8.2)
[2021-02-07 19:07] LABS: LACTIC ACID 2.5 mmol/L (0.4-2.0)
[2021-02-07 20:07] LABS: EPI CELLS >36 /uL (0-25.1); HYALINE CASTS 0 /uL (0-3.1); PH,URINE 6.5 (5.0-8.0); URINE APPEARANCE CLEAR; URINE BACTERIA 1717 /uL (0-1359); URINE BILIRUBIN NEGATIVE (NEGATIVE); URINE COLOR YELLOW; URINE GLUCOSE (UA) NEGATIVE (NEGATIVE); URINE KETONE NEGATIVE (NEGATIVE); URINE LEUK ESTERASE 3+ (NEGATIVE); URINE NITRITE NEGATIVE (NEGATIVE); URINE PROTEIN TRACE (NEGATIVE); URINE RBC 4 /uL (0-23.9); URINE UROBILINOGEN 0.2 mg/dL (0.2-1.0); URINE WBC 42 /uL (0-25.8)
[2021-02-07] MEDS ORDERED: INSULIN REGULAR HUMAN 100 UNITS/ML *VIAL SQ ONE (20:15)
[2021-02-07] MEDS ORDERED: ACETAMINOPHEN INJECTION 100 ML IVPB ONE (22:20)
[2021-02-08] MEDS ORDERED: LACTATED RINGERS SOLUTION 1,000 ML IV SCH (00:45)
[2021-02-08] MEDS ORDERED: PIPERACILLIN/TAZOBACTAM 3.375 GM VIAL IVPB ONE ×3 (01:26→17:50)
[2021-02-08] MEDS ORDERED: DEXTROSE 5%-WATER - 50 ML IVPB ONE ×3 (01:26→17:50)
[2021-02-08] MEDS: PIPERACILLIN/TAZOB 3.375 GM 3.375 GM in DEXTROSE 5%-WATER - 50 ML IVPB SCH ×3 (01:29→17:59)
[2021-02-08] MEDS: ACETAMINOPHEN 325 MG TABLET (FP) PO PRN ×3 (04:23→16:19)
[2021-02-08] MEDS: INSULIN SLIDING SCALE (NOVOLOG) 1 VIAL SQ SCH ×4 (06:42→22:16)
[2021-02-08] MEDS: HEPARIN NA (PORCINE) 5,000 UNITS/ML 1ML VIAL SQ SCH ×3 (06:44→22:16)
[2021-02-08] MEDS: TAMSULOSIN HCL 0.4 MG CAP PO SCH (08:42)
[2021-02-08 08:50] LABS: HEMATOCRIT 34.5 % (35.4-49); HEMOGLOBIN 11.4 GM/dL (11.7-16.9); MCH 24.9 pg (25.7-33.7); MEAN CELL VOLUME 75.4 fl (80-96); MEAN PLT VOLUME 8.3 fl (7.5-11.1); PLATELET COUNT 248 K/MM3 (134-434); RBC 4.58 M/mm3 (4.00-5.60); RDW 16.3 % (11.9-15.9); WHITE BLOOD COUNT 16.1 K/mm3 (4.0-10.0)
[2021-02-08 09:50] LABS: CALCIUM 8.8 mg/dL (8.5-10.1)
[2021-02-08 09:51] LABS: BLOOD UREA NITROGEN 14.4 mg/dL (7-18); MAGNESIUM 2.3 mg/dL (1.8-2.4)
[2021-02-08 09:54] LABS: CREATININE 1.4 mg/dL (0.55-1.3); PHOSPHOROUS 2.4 mg/dL (2.5-4.9)
[2021-02-08] MEDS: ASPIRIN 81 MG CHEWABLE TABLETS PO SCH (10:34)
[2021-02-08] MEDS ORDERED: INSULIN (NOVOLOG) ASPART 100 UNITS/ML 10ML VIAL ONE ×2 (11:14→16:34)
[2021-02-08] MEDS ORDERED: ACETAMINOPHEN 1000 MG/100 ML VIAL (NON FORMULARY) IVPB ONE (22:08)
[2021-02-08] MEDS: amLODIPine BESYLATE 10 MG TABLET (FP) PO SCH (22:16)
[2021-02-09] MEDS ORDERED: PIPERACILLIN/TAZOBACTAM 3.375 GM VIAL IVPB ONE ×3 (02:10→17:09)
[2021-02-09] MEDS ORDERED: DEXTROSE 5%-WATER - 50 ML IVPB ONE ×3 (02:10→17:09)
[2021-02-09] MEDS: PIPERACILLIN/TAZOB 3.375 GM 3.375 GM in DEXTROSE 5%-WATER - 50 ML IVPB SCH ×3 (02:21→17:39)
[2021-02-09] MEDS ORDERED: PIPERACILLIN/TAZOB 3.375 GM 3.375 GM in DEXTROSE 5%-WATER - 50 ML IVPB SCH (03:00)
[2021-02-09] MEDS: ACETAMINOPHEN 325 MG TABLET (FP) PO PRN ×3 (03:58→22:13)
[2021-02-09] MEDS: INSULIN SLIDING SCALE (NOVOLOG) 1 VIAL SQ SCH ×4 (06:22→22:02)
[2021-02-09] MEDS: HEPARIN NA (PORCINE) 5,000 UNITS/ML 1ML VIAL SQ SCH ×3 (06:22→22:02)
[2021-02-09] MEDS ORDERED: INSULIN (NOVOLOG) ASPART 100 UNITS/ML 10ML VIAL ONE (07:33)
[2021-02-09] MEDS: TAMSULOSIN HCL 0.4 MG CAP PO SCH (08:26)
[2021-02-09 08:42] LABS: BASO % 0.1 % (0-2.0); HEMATOCRIT 33.5 % (35.4-49); HEMOGLOBIN 11.1 GM/dL (11.7-16.9); LYMPH % 6.2 % (8-40); MCH 24.8 pg (25.7-33.7); MEAN CELL VOLUME 75.1 fl (80-96); MEAN PLT VOLUME 8.5 fl (7.5-11.1); MONO % 5.3 % (3.8-10.2); NEUT % 88.4 % (42.8-82.8); PLATELET COUNT 212 K/MM3 (134-434); RBC 4.46 M/mm3 (4.00-5.60); RDW 16.7 % (11.9-15.9); WHITE BLOOD COUNT 19.3 K/mm3 (4.0-10.0)
[2021-02-09 09:00] LABS: CALCIUM 8.4 mg/dL (8.5-10.1)
[2021-02-09 09:02] LABS: BLOOD UREA NITROGEN 15.2 mg/dL (7-18)
[2021-02-09 09:05] LABS: CREATININE 1.4 mg/dL (0.55-1.3)
[2021-02-09] MEDS: ASPIRIN 81 MG CHEWABLE TABLETS PO SCH (10:54)
[2021-02-09] MEDS: amLODIPine BESYLATE 10 MG TABLET (FP) PO SCH (22:02)
[2021-02-10] MEDS ORDERED: PIPERACILLIN/TAZOBACTAM 3.375 GM VIAL IVPB ONE ×4 (02:35→16:27)
[2021-02-10] MEDS ORDERED: DEXTROSE 5%-WATER - 50 ML IVPB ONE ×4 (02:36→16:27)
[2021-02-10] MEDS: PIPERACILLIN/TAZOB 3.375 GM 3.375 GM in DEXTROSE 5%-WATER - 50 ML IVPB SCH ×3 (02:47→17:22)
[2021-02-10] MEDS: HEPARIN NA (PORCINE) 5,000 UNITS/ML 1ML VIAL SQ SCH ×3 (06:24→21:16)
[2021-02-10] MEDS: INSULIN SLIDING SCALE (NOVOLOG) 1 VIAL SQ SCH ×4 (06:26→21:19)
[2021-02-10] MEDS: ASPIRIN 81 MG CHEWABLE TABLETS PO SCH (10:19)
[2021-02-10] MEDS: TAMSULOSIN HCL 0.4 MG CAP PO SCH (10:19)
[2021-02-10] MEDS: ACETAMINOPHEN 325 MG TABLET (FP) PO PRN ×2 (13:38→21:23)
[2021-02-10] MEDS: SODIUM CHLORIDE 1,000 ML IV SCH (14:07)
[2021-02-10] MEDS ORDERED: PT OWN MED DRAWER 7, Y5N ONE (21:09)
[2021-02-10] MEDS ORDERED: INSULIN (NOVOLOG) ASPART 100 UNITS/ML 10ML VIAL ONE (21:11)
[2021-02-10] MEDS: QUEtiapine FUMARATE 25 MG TABLET PO SCH (21:15)
[2021-02-10] MEDS: amLODIPine BESYLATE 10 MG TABLET (FP) PO SCH (21:15)
[2021-02-10] MEDS: GABAPENTIN 300 MG CAPSULE PO SCH (21:15)
[2021-02-10] MEDS: MEMANTINE HCL 10 MG TABLET (FP) PO SCH (21:16)
[2021-02-10] MEDS: BRIMONIDINE TARTRATE 0.2% OPHTHALMIC 5 ML BOTTLE OU SCH (21:18)
[2021-02-10] MEDS: LATANOPROST 0.005% OPHTH SOLN 2.5ML BOTTLE OU SCH (21:20)
[2021-02-10] MEDS: DORZOLAMIDE 2% HCL OPHTHALMIC SOLUTION 10 ML BOTTLE OU SCH (21:20)
[2021-02-10] MEDS ORDERED: INSULIN (LEVEMIR) 100 UNITS/ML UNITS SQ SCH (22:00)
[2021-02-11] MEDS ORDERED: PIPERACILLIN/TAZOBACTAM 3.375 GM VIAL IVPB ONE (01:19)
[2021-02-11] MEDS ORDERED: DEXTROSE 5%-WATER - 50 ML IVPB ONE (01:19)
[2021-02-11] MEDS: PIPERACILLIN/TAZOB 3.375 GM 3.375 GM in DEXTROSE 5%-WATER - 50 ML IVPB SCH (01:31)
[2021-02-11] MEDS: HEPARIN NA (PORCINE) 5,000 UNITS/ML 1ML VIAL SQ SCH (06:12)
[2021-02-11] MEDS: INSULIN SLIDING SCALE (NOVOLOG) 1 VIAL SQ SCH ×4 (06:12→22:32)
[2021-02-11] MEDS: ACETAMINOPHEN 325 MG TABLET (FP) PO PRN ×2 (06:39→16:31)
[2021-02-11 08:19] LABS: BASO % 0.4 % (0-2.0); EOS % 0.3 % (0-4.5); HEMATOCRIT 31.7 % (35.4-49); HEMOGLOBIN 10.6 GM/dL (11.7-16.9); LYMPH % 6.9 % (8-40); MCH 24.9 pg (25.7-33.7); MCHC 33.4 g/dl (32.0-35.9); MEAN CELL VOLUME 74.5 fl (80-96); MEAN PLT VOLUME 8.6 fl (7.5-11.1); MONO % 6.2 % (3.8-10.2); NEUT % 86.2 % (42.8-82.8); PLATELET COUNT 224 K/MM3 (134-434); RBC 4.25 M/mm3 (4.00-5.60); WHITE BLOOD COUNT 19.7 K/mm3 (4.0-10.0)
[2021-02-11] MEDS: TAMSULOSIN HCL 0.4 MG CAP PO SCH (08:34)
[2021-02-11 08:47] LABS: CALCIUM 7.9 mg/dL (8.5-10.1)
[2021-02-11 08:48] LABS: BLOOD UREA NITROGEN 21.6 mg/dL (7-18)
[2021-02-11 08:51] LABS: CREATININE 1.3 mg/dL (0.55-1.3)
[2021-02-11] MEDS ORDERED: DEXTROSE 5%-WATER 100 ML IVPB ONE ×2 (10:26→18:43)
[2021-02-11] MEDS ORDERED: MEROPENEM 1 GM VIAL (RESTRICTED TO ID) IVPB ONE ×2 (10:26→18:43)
[2021-02-11] MEDS: GABAPENTIN 300 MG CAPSULE PO SCH ×2 (10:46→22:11)
[2021-02-11] MEDS: ASPIRIN 81 MG CHEWABLE TABLETS PO SCH (10:46)
[2021-02-11] MEDS: MEMANTINE HCL 10 MG TABLET (FP) PO SCH ×2 (10:46→22:12)
[2021-02-11] MEDS: LOSARTAN POTASSIUM 50 MG TABLET PO SCH (10:47)
[2021-02-11] MEDS: POLYETHYLENE GLYCOL 3350 119 GM BTL PO SCH (10:47)
[2021-02-11] MEDS: BRIMONIDINE TARTRATE 0.2% OPHTHALMIC 5 ML BOTTLE OU SCH ×2 (10:47→22:10)
[2021-02-11] MEDS: MEROPENEM 1 GM in DEXTROSE 5%-WATER 100 ML IVPB SCH ×2 (10:47→18:45)
[2021-02-11] MEDS: DORZOLAMIDE 2% HCL OPHTHALMIC SOLUTION 10 ML BOTTLE OU SCH ×2 (10:47→22:11)
[2021-02-11 10:50] LABS: ANISOCYTOSIS 0; MACROCYTOSIS 0; PLATELET ESTIMATE NORMAL
[2021-02-11] MEDS ORDERED: POTASSIUM CHLORIDE ORAL LIQUID 20 MEQ/15 ML PO ONE (12:38)
[2021-02-11] MEDS ORDERED: VANCOMYCIN 1 GRAM (PRE-DOCKED) 1,000 MG/250 ML BAG IVPB ONE (13:00)
[2021-02-11] MEDS: SODIUM CHLORIDE 1,000 ML IV SCH ×2 (14:21→23:40)
[2021-02-11 15:12] LABS: EPI CELLS >36 /uL (0-25.1); HYALINE CASTS 6 /uL (0-3.1); URINE APPEARANCE CLOUDY; URINE BACTERIA 28 /uL (0-1359); URINE BILIRUBIN NEGATIVE (NEGATIVE); URINE COLOR YELLOW; URINE GLUCOSE (UA) TRACE (NEGATIVE); URINE KETONE TRACE (NEGATIVE); URINE LEUK ESTERASE 1+ (NEGATIVE); URINE NITRITE NEGATIVE (NEGATIVE); URINE PROTEIN 3+ (NEGATIVE); URINE RBC 560 /uL (0-23.9); URINE UROBILINOGEN 0.2 mg/dL (0.2-1.0); URINE WBC 228 /uL (0-25.8)
[2021-02-11] MEDS ORDERED: PT OWN MED DRAWER 7, Y5N ONE (22:06)
[2021-02-11] MEDS: INSULIN (LEVEMIR) 100 UNITS/ML UNITS SQ SCH (22:11)
[2021-02-11] MEDS: LATANOPROST 0.005% OPHTH SOLN 2.5ML BOTTLE OU SCH (22:11)
[2021-02-11] MEDS: amLODIPine BESYLATE 10 MG TABLET (FP) PO SCH (22:12)
[2021-02-11] MEDS: QUEtiapine FUMARATE 25 MG TABLET PO SCH (22:12)
[2021-02-12] MEDS ORDERED: MEROPENEM 1 GM VIAL (RESTRICTED TO ID) IVPB ONE ×3 (01:16→17:40)
[2021-02-12] MEDS ORDERED: DEXTROSE 5%-WATER 100 ML IVPB ONE ×3 (01:16→17:40)
[2021-02-12] MEDS: MEROPENEM 1 GM in DEXTROSE 5%-WATER 100 ML IVPB SCH ×3 (01:18→17:41)
[2021-02-12] MEDS: ACETAMINOPHEN 325 MG TABLET (FP) PO PRN ×2 (03:40→16:47)
[2021-02-12] MEDS: INSULIN SLIDING SCALE (NOVOLOG) 1 VIAL SQ SCH ×4 (06:27→21:45)
[2021-02-12] MEDS: TAMSULOSIN HCL 0.4 MG CAP PO SCH (09:01)
[2021-02-12] MEDS: ASPIRIN 81 MG CHEWABLE TABLETS PO SCH (10:03)
[2021-02-12] MEDS: ENOXAPARIN NA (PORCINE) 40 MG/0.4 ML DISP.SYRIN SQ SCH (10:03)
[2021-02-12] MEDS: LOSARTAN POTASSIUM 50 MG TABLET PO SCH (10:04)
[2021-02-12] MEDS: DORZOLAMIDE 2% HCL OPHTHALMIC SOLUTION 10 ML BOTTLE OU SCH ×2 (10:04→21:49)
[2021-02-12] MEDS: MEMANTINE HCL 10 MG TABLET (FP) PO SCH ×2 (10:04→21:45)
[2021-02-12] MEDS: GABAPENTIN 300 MG CAPSULE PO SCH ×2 (10:04→21:45)
[2021-02-12 10:07] LABS: BASO % 0.6 % (0-2.0); EOS % 1.7 % (0-4.5); HEMATOCRIT 29.9 % (35.4-49); HEMOGLOBIN 9.9 GM/dL (11.7-16.9); MCH 24.9 pg (25.7-33.7); MCHC 33.3 g/dl (32.0-35.9); MEAN CELL VOLUME 74.8 fl (80-96); MEAN PLT VOLUME 8.7 fl (7.5-11.1); MONO % 6.9 % (3.8-10.2); NEUT % 77.8 % (42.8-82.8); PLATELET COUNT 257 K/MM3 (134-434); RBC 3.99 M/mm3 (4.00-5.60); RDW 16.9 % (11.9-15.9); WHITE BLOOD COUNT 18.2 K/mm3 (4.0-10.0)
[2021-02-12] MEDS: POLYETHYLENE GLYCOL 3350 119 GM BTL PO SCH (10:12)
[2021-02-12] MEDS: BRIMONIDINE TARTRATE 0.2% OPHTHALMIC 5 ML BOTTLE OU SCH ×2 (10:12→21:46)
[2021-02-12 10:40] LABS: CALCIUM 8.4 mg/dL (8.5-10.1)
[2021-02-12 10:41] LABS: BLOOD UREA NITROGEN 21.2 mg/dL (7-18)
[2021-02-12 10:44] LABS: CREATININE 1.2 mg/dL (0.55-1.3)
[2021-02-12] MEDS ORDERED: VANCOMYCIN 1 GM in D5W (PRE-DOCKED) 1,000 MG/250 ML IVPB ONE (12:35)
[2021-02-12 12:46] LABS: ANISOCYTOSIS 1+; MACROCYTOSIS 0; OVALOCYTE 1+; PLATELET ESTIMATE NORMAL; TEAR DROP CELLS 1+
[2021-02-12] MEDS: QUEtiapine FUMARATE 25 MG TABLET PO SCH (21:45)
[2021-02-12] MEDS: amLODIPine BESYLATE 10 MG TABLET (FP) PO SCH (21:47)
[2021-02-12] MEDS: INSULIN (LEVEMIR) 100 UNITS/ML UNITS SQ SCH (21:47)
[2021-02-12] MEDS: LATANOPROST 0.005% OPHTH SOLN 2.5ML BOTTLE OU SCH (21:49)
[2021-02-13] MEDS ORDERED: MEROPENEM 1 GM VIAL (RESTRICTED TO ID) IVPB ONE ×2 (01:17→10:17)
[2021-02-13] MEDS ORDERED: DEXTROSE 5%-WATER 100 ML IVPB ONE ×2 (01:17→10:17)
[2021-02-13] MEDS: MEROPENEM 1 GM in DEXTROSE 5%-WATER 100 ML IVPB SCH ×2 (01:20→10:21)
[2021-02-13] MEDS: INSULIN SLIDING SCALE (NOVOLOG) 1 VIAL SQ SCH ×4 (06:41→21:16)
[2021-02-13] MEDS: ASPIRIN 81 MG CHEWABLE TABLETS PO SCH (10:22)
[2021-02-13] MEDS: LOSARTAN POTASSIUM 50 MG TABLET PO SCH (10:22)
[2021-02-13] MEDS: GABAPENTIN 300 MG CAPSULE PO SCH ×2 (10:22→21:15)
[2021-02-13] MEDS: TAMSULOSIN HCL 0.4 MG CAP PO SCH (10:22)
[2021-02-13] MEDS: MEMANTINE HCL 10 MG TABLET (FP) PO SCH ×2 (10:22→21:15)
[2021-02-13] MEDS: ENOXAPARIN NA (PORCINE) 40 MG/0.4 ML DISP.SYRIN SQ SCH (10:23)
[2021-02-13] MEDS: BRIMONIDINE TARTRATE 0.2% OPHTHALMIC 5 ML BOTTLE OU SCH ×2 (10:23→21:16)
[2021-02-13] MEDS: POLYETHYLENE GLYCOL 3350 119 GM BTL PO SCH (10:24)
[2021-02-13] MEDS: DORZOLAMIDE 2% HCL OPHTHALMIC SOLUTION 10 ML BOTTLE OU SCH ×2 (10:24→21:17)
[2021-02-13 12:02] LABS: BASO % 0.4 % (0-2.0); HEMATOCRIT 30.2 % (35.4-49); LYMPH % 11.2 % (8-40); MCH 24.9 pg (25.7-33.7); MEAN CELL VOLUME 75.7 fl (80-96); MEAN PLT VOLUME 8.8 fl (7.5-11.1); MONO % 5.8 % (3.8-10.2); NEUT % 80.6 % (42.8-82.8); PLATELET COUNT 302 K/MM3 (134-434); RBC 3.99 M/mm3 (4.00-5.60); RDW 16.9 % (11.9-15.9)
[2021-02-13 12:37] LABS: CALCIUM 8.1 mg/dL (8.5-10.1)
[2021-02-13] MEDS ORDERED: PT OWN MED DRAWER 7, Y5N ONE (13:50)
[2021-02-13] MEDS: SILVER SULFADIAZINE 1% TOP CREAM 50 GM JAR TP SCH (13:50)
[2021-02-13 14:53] LABS: ANISOCYTOSIS 0; HELMET CELLS 0; HOWELL-JOLLY BODIES 0; MACROCYTOSIS 0; OVALOCYTE 0; PLATELET ESTIMATE NORMAL; ROULEAU 0; SICKELED CELLS 0; TARGET CELLS 0; TEAR DROP CELLS 0; TOXIC GRANULATION 0
[2021-02-13] MEDS ORDERED: PIPERACILLIN/TAZOBACTAM 2.25 GM VIAL IVPB ONE (17:14)
[2021-02-13] MEDS ORDERED: DEXTROSE 5%-WATER - 50 ML IVPB ONE (17:14)
[2021-02-13] MEDS: PIPERACILLIN/TAZOB 2.25 GM 2.25 GM in DEXTROSE 5%-WATER - 50 ML IVPB SCH (17:17)
[2021-02-13] MEDS ORDERED: INSULIN (LEVEMIR) 100 UNITS/ML UNITS SQ ONE (20:49)
[2021-02-13] MEDS: QUEtiapine FUMARATE 25 MG TABLET PO SCH (21:15)
[2021-02-13] MEDS: amLODIPine BESYLATE 10 MG TABLET (FP) PO SCH (21:15)
[2021-02-13] MEDS: INSULIN (LEVEMIR) 100 UNITS/ML UNITS SQ SCH (21:15)
[2021-02-13] MEDS: LATANOPROST 0.005% OPHTH SOLN 2.5ML BOTTLE OU SCH (21:17)
[2021-02-13] MEDS: ACETAMINOPHEN 325 MG TABLET (FP) PO PRN (21:37)
[2021-02-14] MEDS ORDERED: DEXTROSE 5%-WATER - 50 ML IVPB ONE ×3 (00:39→17:47)
[2021-02-14] MEDS ORDERED: PIPERACILLIN/TAZOBACTAM 2.25 GM VIAL IVPB ONE ×3 (00:39→17:47)
[2021-02-14] MEDS: PIPERACILLIN/TAZOB 2.25 GM 2.25 GM in DEXTROSE 5%-WATER - 50 ML IVPB SCH ×3 (01:05→17:59)
[2021-02-14] MEDS: INSULIN SLIDING SCALE (NOVOLOG) 1 VIAL SQ SCH ×4 (06:14→23:10)
[2021-02-14 08:29] LABS: BASO % 0.7 % (0-2.0); EOS % 2.9 % (0-4.5); HEMATOCRIT 30.8 % (35.4-49); HEMOGLOBIN 10.3 GM/dL (11.7-16.9); MCHC 33.3 g/dl (32.0-35.9); MEAN PLT VOLUME 8.3 fl (7.5-11.1); MONO % 6.6 % (3.8-10.2); NEUT % 76.8 % (42.8-82.8); PLATELET COUNT 363 K/MM3 (134-434); RBC 4.11 M/mm3 (4.00-5.60)
[2021-02-14] MEDS: TAMSULOSIN HCL 0.4 MG CAP PO SCH (08:37)
[2021-02-14 08:44] LABS: CALCIUM 8.2 mg/dL (8.5-10.1)
[2021-02-14 08:45] LABS: BLOOD UREA NITROGEN 19.3 mg/dL (7-18)
[2021-02-14] MEDS: BRIMONIDINE TARTRATE 0.2% OPHTHALMIC 5 ML BOTTLE OU SCH ×2 (10:48→23:10)
[2021-02-14] MEDS: DORZOLAMIDE 2% HCL OPHTHALMIC SOLUTION 10 ML BOTTLE OU SCH ×2 (10:48→23:09)
[2021-02-14] MEDS: MEMANTINE HCL 10 MG TABLET (FP) PO SCH ×2 (10:49→23:09)
[2021-02-14] MEDS: GABAPENTIN 300 MG CAPSULE PO SCH ×2 (10:49→23:09)
[2021-02-14] MEDS: LOSARTAN POTASSIUM 50 MG TABLET PO SCH (10:49)
[2021-02-14] MEDS: ENOXAPARIN NA (PORCINE) 40 MG/0.4 ML DISP.SYRIN SQ SCH (10:49)
[2021-02-14] MEDS: ASPIRIN 81 MG CHEWABLE TABLETS PO SCH (10:49)
[2021-02-14] MEDS: SILVER SULFADIAZINE 1% TOP CREAM 50 GM JAR TP SCH (10:50)
[2021-02-14] MEDS: POLYETHYLENE GLYCOL 3350 119 GM BTL PO SCH (10:50)
[2021-02-14 11:23] LABS: ANISOCYTOSIS 0; HELMET CELLS 0; HOWELL-JOLLY BODIES 0; MACROCYTOSIS 0; OVALOCYTE 0; PLATELET ESTIMATE NORMAL; ROULEAU 0; SICKELED CELLS 0; TARGET CELLS 0; TEAR DROP CELLS 0; TOXIC GRANULATION 0
[2021-02-14] MEDS: amLODIPine BESYLATE 10 MG TABLET (FP) PO SCH (23:09)
[2021-02-14] MEDS: QUEtiapine FUMARATE 25 MG TABLET PO SCH (23:09)
[2021-02-14] MEDS: LATANOPROST 0.005% OPHTH SOLN 2.5ML BOTTLE OU SCH (23:10)
[2021-02-14] MEDS: INSULIN (LEVEMIR) 100 UNITS/ML UNITS SQ SCH (23:10)
[2021-02-15] MEDS ORDERED: PIPERACILLIN/TAZOBACTAM 2.25 GM VIAL IVPB ONE ×3 (02:35→16:59)
[2021-02-15] MEDS ORDERED: DEXTROSE 5%-WATER - 50 ML IVPB ONE ×3 (02:35→16:59)
[2021-02-15] MEDS: PIPERACILLIN/TAZOB 2.25 GM 2.25 GM in DEXTROSE 5%-WATER - 50 ML IVPB SCH ×3 (02:37→17:01)
[2021-02-15] MEDS: INSULIN SLIDING SCALE (NOVOLOG) 1 VIAL SQ SCH ×4 (07:10→22:01)
[2021-02-15 08:28] LABS: BASO % 0.6 % (0-2.0); EOS % 2.8 % (0-4.5); HEMATOCRIT 30.4 % (35.4-49); HEMOGLOBIN 10.2 GM/dL (11.7-16.9); LYMPH % 15.6 % (8-40); MCH 25.1 pg (25.7-33.7); MCHC 33.4 g/dl (32.0-35.9); MEAN CELL VOLUME 74.9 fl (80-96); MEAN PLT VOLUME 8.2 fl (7.5-11.1); MONO % 6.8 % (3.8-10.2); NEUT % 74.2 % (42.8-82.8); PLATELET COUNT 434 K/MM3 (134-434); RBC 4.06 M/mm3 (4.00-5.60); RDW 16.9 % (11.9-15.9); WHITE BLOOD COUNT 12.9 K/mm3 (4.0-10.0)
[2021-02-15 08:47] LABS: CALCIUM 8.2 mg/dL (8.5-10.1)
[2021-02-15 08:48] LABS: BLOOD UREA NITROGEN 17.8 mg/dL (7-18)
[2021-02-15] MEDS: BRIMONIDINE TARTRATE 0.2% OPHTHALMIC 5 ML BOTTLE OU SCH ×2 (10:00→21:56)
[2021-02-15] MEDS: ENOXAPARIN NA (PORCINE) 40 MG/0.4 ML DISP.SYRIN SQ SCH (10:37)
[2021-02-15] MEDS: GABAPENTIN 300 MG CAPSULE PO SCH ×2 (10:37→21:56)
[2021-02-15] MEDS: POLYETHYLENE GLYCOL 3350 119 GM BTL PO SCH (10:37)
[2021-02-15] MEDS: LOSARTAN POTASSIUM 50 MG TABLET PO SCH (10:37)
[2021-02-15] MEDS: ASPIRIN 81 MG CHEWABLE TABLETS PO SCH (10:37)
[2021-02-15] MEDS: MEMANTINE HCL 10 MG TABLET (FP) PO SCH ×2 (10:37→21:56)
[2021-02-15] MEDS: TAMSULOSIN HCL 0.4 MG CAP PO SCH (10:37)
[2021-02-15] MEDS: SILVER SULFADIAZINE 1% TOP CREAM 50 GM JAR TP SCH (10:38)
[2021-02-15] MEDS: DORZOLAMIDE 2% HCL OPHTHALMIC SOLUTION 10 ML BOTTLE OU SCH ×2 (10:38→21:56)
[2021-02-15] MEDS ORDERED: INSULIN (NOVOLOG) ASPART 100 UNITS/ML 10ML VIAL ONE (16:59)
[2021-02-15] MEDS: LATANOPROST 0.005% OPHTH SOLN 2.5ML BOTTLE OU SCH (21:56)
[2021-02-15] MEDS: QUEtiapine FUMARATE 25 MG TABLET PO SCH (21:56)
[2021-02-15] MEDS: amLODIPine BESYLATE 10 MG TABLET (FP) PO SCH (21:56)
[2021-02-15] MEDS: INSULIN (LEVEMIR) 100 UNITS/ML UNITS SQ SCH (22:03)
[2021-02-16] MEDS ORDERED: DEXTROSE 5%-WATER - 50 ML IVPB ONE ×3 (00:47→17:10)
[2021-02-16] MEDS ORDERED: PIPERACILLIN/TAZOBACTAM 2.25 GM VIAL IVPB ONE ×3 (00:47→17:10)
[2021-02-16] MEDS: PIPERACILLIN/TAZOB 2.25 GM 2.25 GM in DEXTROSE 5%-WATER - 50 ML IVPB SCH ×3 (01:00→17:20)
[2021-02-16] MEDS: INSULIN SLIDING SCALE (NOVOLOG) 1 VIAL SQ SCH ×4 (06:02→21:35)
[2021-02-16] MEDS ORDERED: PT OWN MED DRAWER 7, Y5N ONE (09:02)
[2021-02-16] MEDS: MULTIVITAMINS (DAILY MVI) TABLET (FP) PO SCH (09:21)
[2021-02-16] MEDS: LOSARTAN POTASSIUM 50 MG TABLET PO SCH (09:21)
[2021-02-16] MEDS: ENOXAPARIN NA (PORCINE) 40 MG/0.4 ML DISP.SYRIN SQ SCH (09:21)
[2021-02-16] MEDS: GABAPENTIN 300 MG CAPSULE PO SCH ×2 (09:21→21:35)
[2021-02-16] MEDS: TAMSULOSIN HCL 0.4 MG CAP PO SCH (09:21)
[2021-02-16] MEDS: MEMANTINE HCL 10 MG TABLET (FP) PO SCH ×2 (09:22→21:35)
[2021-02-16] MEDS: ASPIRIN 81 MG CHEWABLE TABLETS PO SCH (09:22)
[2021-02-16] MEDS: DORZOLAMIDE 2% HCL OPHTHALMIC SOLUTION 10 ML BOTTLE OU SCH ×2 (09:23→21:37)
[2021-02-16] MEDS: SILVER SULFADIAZINE 1% TOP CREAM 50 GM JAR TP SCH (09:24)
[2021-02-16] MEDS: BRIMONIDINE TARTRATE 0.2% OPHTHALMIC 5 ML BOTTLE OU SCH ×2 (09:24→21:46)
[2021-02-16] MEDS: POLYETHYLENE GLYCOL 3350 119 GM BTL PO SCH (09:26)
[2021-02-16] MEDS ORDERED: INSULIN (NOVOLOG) ASPART 100 UNITS/ML 10ML VIAL ONE ×2 (17:26→21:33)
[2021-02-16] MEDS: QUEtiapine FUMARATE 25 MG TABLET PO SCH (21:35)
[2021-02-16] MEDS: amLODIPine BESYLATE 10 MG TABLET (FP) PO SCH (21:35)
[2021-02-16] MEDS: INSULIN (LEVEMIR) 100 UNITS/ML UNITS SQ SCH (21:36)
[2021-02-16] MEDS: LATANOPROST 0.005% OPHTH SOLN 2.5ML BOTTLE OU SCH (21:37)
[2021-02-17] MEDS ORDERED: PIPERACILLIN/TAZOBACTAM 2.25 GM VIAL IVPB ONE ×3 (00:39→16:15)
[2021-02-17] MEDS ORDERED: DEXTROSE 5%-WATER - 50 ML IVPB ONE ×3 (00:40→16:15)
[2021-02-17] MEDS: PIPERACILLIN/TAZOB 2.25 GM 2.25 GM in DEXTROSE 5%-WATER - 50 ML IVPB SCH ×3 (01:49→17:49)
[2021-02-17] MEDS: INSULIN SLIDING SCALE (NOVOLOG) 1 VIAL SQ SCH ×4 (06:23→21:32)
[2021-02-17 08:46] LABS: BASO % 0.5 % (0-2.0); EOS % 1.9 % (0-4.5); HEMATOCRIT 30.7 % (35.4-49); HEMOGLOBIN 10.4 GM/dL (11.7-16.9); LYMPH % 13.5 % (8-40); MCH 25.3 pg (25.7-33.7); MCHC 33.7 g/dl (32.0-35.9); MONO % 5.5 % (3.8-10.2); NEUT % 78.6 % (42.8-82.8); PLATELET COUNT 500 K/MM3 (134-434); RDW 17.2 % (11.9-15.9); WHITE BLOOD COUNT 14.1 K/mm3 (4.0-10.0)
[2021-02-17 09:04] LABS: CALCIUM 8.6 mg/dL (8.5-10.1)
[2021-02-17 09:05] LABS: BLOOD UREA NITROGEN 15.6 mg/dL (7-18)
[2021-02-17 09:09] LABS: CREATININE 1.1 mg/dL (0.55-1.3)
[2021-02-17] MEDS: MULTIVITAMINS (DAILY MVI) TABLET (FP) PO SCH (09:40)
[2021-02-17] MEDS: LOSARTAN POTASSIUM 50 MG TABLET PO SCH (09:40)
[2021-02-17] MEDS: TAMSULOSIN HCL 0.4 MG CAP PO SCH (09:40)
[2021-02-17] MEDS: MEMANTINE HCL 10 MG TABLET (FP) PO SCH ×2 (09:40→21:20)
[2021-02-17] MEDS: ENOXAPARIN NA (PORCINE) 40 MG/0.4 ML DISP.SYRIN SQ SCH (09:41)
[2021-02-17] MEDS: GABAPENTIN 300 MG CAPSULE PO SCH ×2 (09:41→21:20)
[2021-02-17] MEDS: ASPIRIN 81 MG CHEWABLE TABLETS PO SCH (09:41)
[2021-02-17] MEDS: SILVER SULFADIAZINE 1% TOP CREAM 50 GM JAR TP SCH (09:45)
[2021-02-17] MEDS: DORZOLAMIDE 2% HCL OPHTHALMIC SOLUTION 10 ML BOTTLE OU SCH ×2 (09:45→21:21)
[2021-02-17] MEDS: BRIMONIDINE TARTRATE 0.2% OPHTHALMIC 5 ML BOTTLE OU SCH ×2 (09:46→21:21)
[2021-02-17] MEDS: POLYETHYLENE GLYCOL 3350 119 GM BTL PO SCH (09:47)
[2021-02-17] MEDS ORDERED: INSULIN (NOVOLOG) ASPART 100 UNITS/ML 10ML VIAL ONE (11:48)
[2021-02-17] MEDS: amLODIPine BESYLATE 10 MG TABLET (FP) PO SCH (21:20)
[2021-02-17] MEDS: QUEtiapine FUMARATE 25 MG TABLET PO SCH (21:20)
[2021-02-17] MEDS: LATANOPROST 0.005% OPHTH SOLN 2.5ML BOTTLE OU SCH (21:21)
[2021-02-17] MEDS: INSULIN (LEVEMIR) 100 UNITS/ML UNITS SQ SCH (21:29)
[2021-02-18] MEDS ORDERED: PIPERACILLIN/TAZOBACTAM 2.25 GM VIAL IVPB ONE ×3 (01:28→16:26)
[2021-02-18] MEDS ORDERED: DEXTROSE 5%-WATER - 50 ML IVPB ONE ×3 (01:28→16:26)
[2021-02-18] MEDS: PIPERACILLIN/TAZOB 2.25 GM 2.25 GM in DEXTROSE 5%-WATER - 50 ML IVPB SCH ×3 (01:48→17:21)
[2021-02-18] MEDS: INSULIN SLIDING SCALE (NOVOLOG) 1 VIAL SQ SCH ×4 (06:10→23:05)
[2021-02-18 08:27] LABS: BASO % 0.6 % (0-2.0); HEMOGLOBIN 10.8 GM/dL (11.7-16.9); LYMPH % 14.8 % (8-40); MCH 25.3 pg (25.7-33.7); MCHC 33.9 g/dl (32.0-35.9); MEAN CELL VOLUME 74.8 fl (80-96); MEAN PLT VOLUME 7.6 fl (7.5-11.1); NEUT % 75.6 % (42.8-82.8); PLATELET COUNT 508 K/MM3 (134-434); RBC 4.28 M/mm3 (4.00-5.60); WHITE BLOOD COUNT 13.6 K/mm3 (4.0-10.0)
[2021-02-18] MEDS: TAMSULOSIN HCL 0.4 MG CAP PO SCH (08:27)
[2021-02-18 08:51] LABS: CALCIUM 8.4 mg/dL (8.5-10.1)
[2021-02-18 08:55] LABS: CREATININE 1.1 mg/dL (0.55-1.3)
[2021-02-18] MEDS: GABAPENTIN 300 MG CAPSULE PO SCH ×2 (09:55→23:06)
[2021-02-18] MEDS: MULTIVITAMINS (DAILY MVI) TABLET (FP) PO SCH (09:55)
[2021-02-18] MEDS: MEMANTINE HCL 10 MG TABLET (FP) PO SCH ×2 (09:55→23:06)
[2021-02-18] MEDS: ENOXAPARIN NA (PORCINE) 40 MG/0.4 ML DISP.SYRIN SQ SCH (09:55)
[2021-02-18] MEDS: ASPIRIN 81 MG CHEWABLE TABLETS PO SCH (09:55)
[2021-02-18] MEDS: POLYETHYLENE GLYCOL 3350 119 GM BTL PO SCH (09:56)
[2021-02-18] MEDS: BRIMONIDINE TARTRATE 0.2% OPHTHALMIC 5 ML BOTTLE OU SCH ×2 (09:56→23:08)
[2021-02-18] MEDS: SILVER SULFADIAZINE 1% TOP CREAM 50 GM JAR TP SCH (09:56)
[2021-02-18] MEDS: LOSARTAN POTASSIUM 50 MG TABLET PO SCH (09:56)
[2021-02-18] MEDS: DORZOLAMIDE 2% HCL OPHTHALMIC SOLUTION 10 ML BOTTLE OU SCH ×2 (09:56→23:06)
[2021-02-18] MEDS: PANTOPRAZOLE 20 MG TABLET PO SCH (17:21)
[2021-02-18] MEDS: INSULIN (LEVEMIR) 100 UNITS/ML UNITS SQ SCH (23:05)
[2021-02-18] MEDS: amLODIPine BESYLATE 10 MG TABLET (FP) PO SCH (23:06)
[2021-02-18] MEDS: QUEtiapine FUMARATE 25 MG TABLET PO SCH (23:06)
[2021-02-18] MEDS: LATANOPROST 0.005% OPHTH SOLN 2.5ML BOTTLE OU SCH (23:07)
[2021-02-19] MEDS ORDERED: DEXTROSE 5%-WATER - 50 ML IVPB ONE ×2 (01:40→10:12)
[2021-02-19] MEDS ORDERED: PIPERACILLIN/TAZOBACTAM 2.25 GM VIAL IVPB ONE ×2 (01:40→10:12)
[2021-02-19] MEDS: PIPERACILLIN/TAZOB 2.25 GM 2.25 GM in DEXTROSE 5%-WATER - 50 ML IVPB SCH ×2 (01:41→10:26)
[2021-02-19] MEDS: INSULIN SLIDING SCALE (NOVOLOG) 1 VIAL SQ SCH ×4 (06:49→21:54)
[2021-02-19 07:51] LABS: BASO % 0.5 % (0-2.0); EOS % 1.8 % (0-4.5); HEMATOCRIT 31.8 % (35.4-49); HEMOGLOBIN 10.7 GM/dL (11.7-16.9); LYMPH % 15.8 % (8-40); MCH 25.2 pg (25.7-33.7); MCHC 33.8 g/dl (32.0-35.9); MEAN CELL VOLUME 74.5 fl (80-96); MEAN PLT VOLUME 7.5 fl (7.5-11.1); MONO % 7.5 % (3.8-10.2); NEUT % 74.4 % (42.8-82.8); PLATELET COUNT 515 K/MM3 (134-434); RBC 4.26 M/mm3 (4.00-5.60); RDW 17.1 % (11.9-15.9); WHITE BLOOD COUNT 12.8 K/mm3 (4.0-10.0)
[2021-02-19] MEDS: TAMSULOSIN HCL 0.4 MG CAP PO SCH ×2 (08:10→10:25)
[2021-02-19 08:11] LABS: CALCIUM 8.4 mg/dL (8.5-10.1)
[2021-02-19 08:12] LABS: BLOOD UREA NITROGEN 15.1 mg/dL (7-18)
[2021-02-19 08:15] LABS: CREATININE 1.2 mg/dL (0.55-1.3)
[2021-02-19] MEDS: MULTIVITAMINS (DAILY MVI) TABLET (FP) PO SCH (10:24)
[2021-02-19] MEDS: LOSARTAN POTASSIUM 50 MG TABLET PO SCH (10:24)
[2021-02-19] MEDS: MEMANTINE HCL 10 MG TABLET (FP) PO SCH ×2 (10:24→21:52)
[2021-02-19] MEDS: GABAPENTIN 300 MG CAPSULE PO SCH ×2 (10:24→21:52)
[2021-02-19] MEDS: ASPIRIN 81 MG CHEWABLE TABLETS PO SCH (10:24)
[2021-02-19] MEDS: PANTOPRAZOLE 20 MG TABLET PO SCH (10:24)
[2021-02-19] MEDS: ENOXAPARIN NA (PORCINE) 40 MG/0.4 ML DISP.SYRIN SQ SCH (10:25)
[2021-02-19] MEDS: DORZOLAMIDE 2% HCL OPHTHALMIC SOLUTION 10 ML BOTTLE OU SCH ×2 (10:26→21:53)
[2021-02-19] MEDS: POLYETHYLENE GLYCOL 3350 119 GM BTL PO SCH (10:26)
[2021-02-19] MEDS: BRIMONIDINE TARTRATE 0.2% OPHTHALMIC 5 ML BOTTLE OU SCH ×2 (11:19→21:53)
[2021-02-19] MEDS: SILVER SULFADIAZINE 1% TOP CREAM 50 GM JAR TP SCH (11:20)
[2021-02-19] MEDS ORDERED: INSULIN (NOVOLOG) ASPART 100 UNITS/ML 10ML VIAL ONE (16:32)
[2021-02-19] MEDS: AMOX TR/POT CLAV 875MG/125MG TABLETS (FP) PO SCH (16:43)
[2021-02-19] MEDS: INSULIN (LEVEMIR) 100 UNITS/ML UNITS SQ SCH (21:51)
[2021-02-19] MEDS: QUEtiapine FUMARATE 25 MG TABLET PO SCH (21:52)
[2021-02-19] MEDS: LATANOPROST 0.005% OPHTH SOLN 2.5ML BOTTLE OU SCH (21:53)
[2021-02-19] MEDS: amLODIPine BESYLATE 10 MG TABLET (FP) PO SCH (21:53)
[2021-02-20] MEDS: INSULIN SLIDING SCALE (NOVOLOG) 1 VIAL SQ SCH ×4 (06:10→21:32)
[2021-02-20 07:27] LABS: BASO % 0.6 % (0-2.0); EOS % 2.1 % (0-4.5); HEMATOCRIT 33.3 % (35.4-49); HEMOGLOBIN 11.1 GM/dL (11.7-16.9); LYMPH % 21.5 % (8-40); MCH 25.2 pg (25.7-33.7); MCHC 33.4 g/dl (32.0-35.9); MEAN CELL VOLUME 75.4 fl (80-96); MEAN PLT VOLUME 7.6 fl (7.5-11.1); MONO % 6.3 % (3.8-10.2); NEUT % 69.5 % (42.8-82.8); PLATELET COUNT 552 K/MM3 (134-434); RBC 4.41 M/mm3 (4.00-5.60); RDW 17.3 % (11.9-15.9); WHITE BLOOD COUNT 11.9 K/mm3 (4.0-10.0)
[2021-02-20 07:48] LABS: CALCIUM 8.5 mg/dL (8.5-10.1)
[2021-02-20 07:51] LABS: BLOOD UREA NITROGEN 15.3 mg/dL (7-18)
[2021-02-20 07:52] LABS: CREATININE 1.2 mg/dL (0.55-1.3)
[2021-02-20] MEDS: MULTIVITAMINS (DAILY MVI) TABLET (FP) PO SCH (09:50)
[2021-02-20] MEDS: ENOXAPARIN NA (PORCINE) 40 MG/0.4 ML DISP.SYRIN SQ SCH (09:50)
[2021-02-20] MEDS: TAMSULOSIN HCL 0.4 MG CAP PO SCH (09:50)
[2021-02-20] MEDS: AMOX TR/POT CLAV 875MG/125MG TABLETS (FP) PO SCH ×2 (09:51→17:58)
[2021-02-20] MEDS: PANTOPRAZOLE 20 MG TABLET PO SCH (09:51)
[2021-02-20] MEDS: GABAPENTIN 300 MG CAPSULE PO SCH ×2 (09:51→21:31)
[2021-02-20] MEDS: LOSARTAN POTASSIUM 50 MG TABLET PO SCH (09:51)
[2021-02-20] MEDS: ASPIRIN 81 MG CHEWABLE TABLETS PO SCH (09:51)
[2021-02-20] MEDS: MEMANTINE HCL 10 MG TABLET (FP) PO SCH ×2 (09:52→21:31)
[2021-02-20] MEDS: POLYETHYLENE GLYCOL 3350 119 GM BTL PO SCH (09:52)
[2021-02-20] MEDS: DORZOLAMIDE 2% HCL OPHTHALMIC SOLUTION 10 ML BOTTLE OU SCH ×2 (09:53→21:33)
[2021-02-20] MEDS: BRIMONIDINE TARTRATE 0.2% OPHTHALMIC 5 ML BOTTLE OU SCH ×2 (09:54→21:32)
[2021-02-20] MEDS: SILVER SULFADIAZINE 1% TOP CREAM 50 GM JAR TP SCH (11:03)
[2021-02-20] MEDS ORDERED: INSULIN (NOVOLOG) ASPART 100 UNITS/ML 10ML VIAL ONE ×2 (11:18→16:27)
[2021-02-20 21:04] VITALS: BMI 26.1
[2021-02-20] MEDS: amLODIPine BESYLATE 10 MG TABLET (FP) PO SCH (21:31)
[2021-02-20] MEDS: QUEtiapine FUMARATE 25 MG TABLET PO SCH (21:31)
[2021-02-20] MEDS: INSULIN (LEVEMIR) 100 UNITS/ML UNITS SQ SCH (21:33)
[2021-02-20] MEDS: LATANOPROST 0.005% OPHTH SOLN 2.5ML BOTTLE OU SCH (21:33)
[2021-02-21] MEDS: INSULIN SLIDING SCALE (NOVOLOG) 1 VIAL SQ SCH ×4 (06:10→22:51)
[2021-02-21] MEDS ORDERED: INSULIN (LEVEMIR) 100 UNITS/ML UNITS SQ ONE (06:27)
[2021-02-21 08:04] LABS: BASO % 0.5 % (0-2.0); EOS % 2.7 % (0-4.5); HEMATOCRIT 32.6 % (35.4-49); HEMOGLOBIN 10.9 GM/dL (11.7-16.9); MCH 25.5 pg (25.7-33.7); MCHC 33.4 g/dl (32.0-35.9); MEAN CELL VOLUME 76.2 fl (80-96); MEAN PLT VOLUME 7.7 fl (7.5-11.1); MONO % 7.2 % (3.8-10.2); NEUT % 66.6 % (42.8-82.8); PLATELET COUNT 507 K/MM3 (134-434); RBC 4.28 M/mm3 (4.00-5.60); RDW 17.2 % (11.9-15.9); WHITE BLOOD COUNT 11.2 K/mm3 (4.0-10.0)
[2021-02-21] MEDS: TAMSULOSIN HCL 0.4 MG CAP PO SCH (08:22)
[2021-02-21] MEDS: AMOX TR/POT CLAV 875MG/125MG TABLETS (FP) PO SCH ×2 (08:22→17:44)
[2021-02-21 08:24] LABS: INR 1.13 (0.83-1.09); PROTHROMBIN TIME (PATIENT) 13.8 SEC (9.7-13.0)
[2021-02-21 08:41] LABS: CALCIUM 8.6 mg/dL (8.5-10.1)
[2021-02-21 08:42] LABS: BLOOD UREA NITROGEN 15.2 mg/dL (7-18)
[2021-02-21 08:45] LABS: CREATININE 1.1 mg/dL (0.55-1.3)
[2021-02-21] MEDS ORDERED: PT OWN MED DRAWER 7, Y5N ONE (09:25)
[2021-02-21] MEDS: MULTIVITAMINS (DAILY MVI) TABLET (FP) PO SCH (09:27)
[2021-02-21] MEDS: GABAPENTIN 300 MG CAPSULE PO SCH ×2 (09:27→22:57)
[2021-02-21] MEDS: LOSARTAN POTASSIUM 50 MG TABLET PO SCH (09:27)
[2021-02-21] MEDS: MEMANTINE HCL 10 MG TABLET (FP) PO SCH ×2 (09:27→22:57)
[2021-02-21] MEDS: ENOXAPARIN NA (PORCINE) 40 MG/0.4 ML DISP.SYRIN SQ SCH (09:27)
[2021-02-21] MEDS: PANTOPRAZOLE 20 MG TABLET PO SCH (09:27)
[2021-02-21] MEDS: BRIMONIDINE TARTRATE 0.2% OPHTHALMIC 5 ML BOTTLE OU SCH ×2 (09:28→22:56)
[2021-02-21] MEDS: DORZOLAMIDE 2% HCL OPHTHALMIC SOLUTION 10 ML BOTTLE OU SCH ×2 (09:29→22:57)
[2021-02-21] MEDS: POLYETHYLENE GLYCOL 3350 119 GM BTL PO SCH (09:32)
[2021-02-21] MEDS: SILVER SULFADIAZINE 1% TOP CREAM 50 GM JAR TP SCH (09:51)
[2021-02-21] MEDS ORDERED: INSULIN (NOVOLOG) ASPART 100 UNITS/ML 10ML VIAL ONE (11:19)
[2021-02-21] MEDS: INSULIN (LEVEMIR) 100 UNITS/ML UNITS SQ SCH (22:52)
[2021-02-21] MEDS: LATANOPROST 0.005% OPHTH SOLN 2.5ML BOTTLE OU SCH (22:56)
[2021-02-21] MEDS: QUEtiapine FUMARATE 25 MG TABLET PO SCH (22:57)
[2021-02-21] MEDS: amLODIPine BESYLATE 10 MG TABLET (FP) PO SCH (22:57)
[2021-02-22] MEDS: INSULIN SLIDING SCALE (NOVOLOG) 1 VIAL SQ SCH ×4 (06:54→22:52)
[2021-02-22 08:32] LABS: EOS % 2.7 % (0-4.5); HEMATOCRIT 33.2 % (35.4-49); LYMPH % 25.9 % (8-40); MCH 25.1 pg (25.7-33.7); MEAN PLT VOLUME 8.1 fl (7.5-11.1); MONO % 6.8 % (3.8-10.2); NEUT % 63.6 % (42.8-82.8); PLATELET COUNT 492 K/MM3 (134-434); RBC 4.37 M/mm3 (4.00-5.60); RDW 17.3 % (11.9-15.9)
[2021-02-22 08:36] LABS: INR 1.1 (0.83-1.09); PROTHROMBIN TIME (PATIENT) 13.3 SEC (9.7-13.0)
[2021-02-22 09:02] LABS: CALCIUM 9.1 mg/dL (8.5-10.1)
[2021-02-22 09:03] LABS: BLOOD UREA NITROGEN 16.1 mg/dL (7-18)
[2021-02-22 09:06] LABS: CREATININE 1.1 mg/dL (0.55-1.3)
[2021-02-22] MEDS: TAMSULOSIN HCL 0.4 MG CAP PO SCH (09:20)
[2021-02-22] MEDS: AMOX TR/POT CLAV 875MG/125MG TABLETS (FP) PO SCH ×2 (09:20→17:29)
[2021-02-22] MEDS: LOSARTAN POTASSIUM 50 MG TABLET PO SCH (09:33)
[2021-02-22] MEDS: POLYETHYLENE GLYCOL 3350 119 GM BTL PO SCH (09:33)
[2021-02-22] MEDS: BRIMONIDINE TARTRATE 0.2% OPHTHALMIC 5 ML BOTTLE OU SCH ×2 (09:33→22:50)
[2021-02-22] MEDS: GABAPENTIN 300 MG CAPSULE PO SCH ×2 (09:34→22:49)
[2021-02-22] MEDS: MEMANTINE HCL 10 MG TABLET (FP) PO SCH ×2 (09:34→22:49)
[2021-02-22] MEDS: PANTOPRAZOLE 20 MG TABLET PO SCH ×2 (09:34→22:49)
[2021-02-22] MEDS: SILVER SULFADIAZINE 1% TOP CREAM 50 GM JAR TP SCH (09:36)
[2021-02-22] MEDS: DORZOLAMIDE 2% HCL OPHTHALMIC SOLUTION 10 ML BOTTLE OU SCH ×2 (09:36→22:50)
[2021-02-22] MEDS: MULTIVITAMINS (DAILY MVI) TABLET (FP) PO SCH (09:36)
[2021-02-22] MEDS: amLODIPine BESYLATE 10 MG TABLET (FP) PO SCH (22:49)
[2021-02-22] MEDS: QUEtiapine FUMARATE 25 MG TABLET PO SCH (22:49)
[2021-02-22] MEDS: LATANOPROST 0.005% OPHTH SOLN 2.5ML BOTTLE OU SCH (22:50)
[2021-02-22] MEDS: INSULIN (LEVEMIR) 100 UNITS/ML UNITS SQ SCH (22:51)
[2021-02-23] MEDS: INSULIN SLIDING SCALE (NOVOLOG) 1 VIAL SQ SCH ×2 (06:09→11:29)
[2021-02-23] MEDS: AMOX TR/POT CLAV 875MG/125MG TABLETS (FP) PO SCH (08:40)
[2021-02-23] MEDS: TAMSULOSIN HCL 0.4 MG CAP PO SCH (09:16)
[2021-02-23] MEDS: MULTIVITAMINS (DAILY MVI) TABLET (FP) PO SCH (10:10)
[2021-02-23] MEDS: LOSARTAN POTASSIUM 50 MG TABLET PO SCH (10:17)
[2021-02-23] MEDS: GABAPENTIN 300 MG CAPSULE PO SCH (10:17)
[2021-02-23] MEDS: PANTOPRAZOLE 20 MG TABLET PO SCH (10:18)
[2021-02-23] MEDS: DORZOLAMIDE 2% HCL OPHTHALMIC SOLUTION 10 ML BOTTLE OU SCH (10:19)
[2021-02-23] MEDS: BRIMONIDINE TARTRATE 0.2% OPHTHALMIC 5 ML BOTTLE OU SCH (10:19)
[2021-02-23] MEDS: POLYETHYLENE GLYCOL 3350 119 GM BTL PO SCH (10:22)
[2021-02-23] MEDS: MEMANTINE HCL 10 MG TABLET (FP) PO SCH (11:15)
[2021-02-23] MEDS: SILVER SULFADIAZINE 1% TOP CREAM 50 GM JAR TP SCH (11:15)
[2021-02-23 14:44] VITALS: BP 144/71; PULSE 68; TEMP 98.6
== END 2021-02-23 14:46 | disposition home or self-care (01) | DRG 862 ==
LOC: JER 17:09 → SUPCPDRO 17:09 → JERBED 21:09 → J6S 02-08 00:28
PROVIDERS: ADMIT Internal Medicine; ATTEND Internal Medicine
PROC: 0DB78ZX Excision of Stomach, Pylorus, Via Natural or Artificial Opening Endoscopic, Diagnostic (ICD-10-PCS; 2021-02-22)
PROC: 0DB68ZX Excision of Stomach, Via Natural or Artificial Opening Endoscopic, Diagnostic (ICD-10-PCS; principal; 2021-02-22 09:30)
DX: T81.40XA Infection following a procedure, unspecified, initial encounter (principal); A41.9 Sepsis, unspecified organism; N39.0 Urinary tract infection, site not specified; N17.9 Acute kidney failure, unspecified; T81.44XA Sepsis following a procedure, initial encounter; E11.65 Type 2 diabetes mellitus with hyperglycemia; H40.9 Unspecified glaucoma; N31.9 Neuromuscular dysfunction of bladder, unspecified; Y83.8 Other surgical procedures as the cause of abnormal reaction of the patient, or of later complication, without mention of misadventure at the time of the procedure; E11.22 Type 2 diabetes mellitus with diabetic chronic kidney disease; I12.9 Hypertensive chronic kidney disease with stage 1 through stage 4 chronic kidney disease, or unspecified chronic kidney disease; N18.30 Chronic kidney disease, stage 3 unspecified; F02.80 Dementia in other diseases classified elsewhere, unspecified severity, without behavioral disturbance, psychotic disturbance, mood disturbance, and anxiety; Z79.84 Long term (current) use of oral hypoglycemic drugs; E11.51 Type 2 diabetes mellitus with diabetic peripheral angiopathy without gangrene; N40.0 Benign prostatic hyperplasia without lower urinary tract symptoms; R13.10 Dysphagia, unspecified; K22.2 Esophageal obstruction; N43.3 Hydrocele, unspecified; E11.40 Type 2 diabetes mellitus with diabetic neuropathy, unspecified; K25.9 Gastric ulcer, unspecified as acute or chronic, without hemorrhage or perforation; L89.152 Pressure ulcer of sacral region, stage 2
CPT/HCPCS: 36415; 71045-TC-FY; 74230-TC-FY; 76775-TC; 76856-TC; 76870-TC; 80048; 80053; 81003; 82570; 82962; 83036; 83605; 83735; 83930; 83935; 83970; 84100; 84156; 84300; 84484; 84540; 85025; 85027; 85610; 85730; 86850; 86900; 86901; 87040; 87086; 87186; 87804; 87899; 88305-TC; 92611-GN; 93005; 93010; 94010; 97116-GP; 97162-GP; 99285-25; C9803; J0131; J1644; U0003; U0005

== ENCOUNTER 2021-02-23 23:06 | Emergency (ER) | payer OTHER ==
[2021-02-23 23:12] VITALS: BP 146/77; PULSE 67; TEMP 97; BMI 26.5
== END 2021-02-24 00:10 | disposition home or self-care (01) ==
LOC: JER 23:06
DX: N47.2 Paraphimosis (principal)
CPT/HCPCS: 99281-25

== ENCOUNTER 2021-10-23 09:56 | Emergency (ER) | payer OTHER ==
[2021-10-23 10:03] VITALS: BP 124/70; PULSE 63; BMI 27.2
[2021-10-23] MEDS ORDERED: SODIUM CHLORIDE 0.9% 500 ML INFUS.BAG IV ONE (12:18)
[2021-10-23 13:01] LABS: BASO % 0.2 % (0-2.0); EOS % 1.9 % (0-4.5); HEMATOCRIT 36.4 % (35.4-49); HEMOGLOBIN 11.7 GM/dL (11.7-16.9); LYMPH % 21.1 % (8-40); MCH 24.2 pg (25.7-33.7); MEAN CELL VOLUME 75.7 fl (80-96); MEAN PLT VOLUME 8.6 fl (7.5-11.1); MONO % 10.6 % (3.8-10.2); NEUT % 66.2 % (42.8-82.8); PLATELET COUNT 219 10^3/uL (134-434); RBC 4.81 M/mm3 (4.00-5.60); RDW 16.1 % (11.9-15.9); WHITE BLOOD COUNT 11.1 K/mm3 (4.0-10.0)
[2021-10-23 13:03] VITALS: TEMP 99.5
[2021-10-23 13:04] LABS: EPI CELLS >36 /uL (0-25.1); HYALINE CASTS 2 /uL (0-3.1); URINE APPEARANCE CLEAR; URINE BACTERIA 5 /uL (0-1359); URINE BILIRUBIN NEGATIVE (NEGATIVE); URINE COLOR RED; URINE GLUCOSE (UA) NEGATIVE (NEGATIVE); URINE KETONE NEGATIVE (NEGATIVE); URINE LEUK ESTERASE 3+ (NEGATIVE); URINE NITRITE NEGATIVE (NEGATIVE); URINE PROTEIN 3+ (NEGATIVE); URINE UROBILINOGEN 0.2 mg/dL (0.2-1.0); URINE WBC 235 /uL (0-25.8)
[2021-10-23 13:10] LABS: INR 1.15 (0.83-1.09); PROTHROMBIN TIME (PATIENT) 13.2 SEC (9.7-13.0)
[2021-10-23 13:12] LABS: ACTIVATED PTT 31.2 SECONDS (25.2-36.5)
[2021-10-23 13:32] LABS: CHLORIDE 103 mmol/L (98-107); SODIUM 139 mmol/L (136-145)
[2021-10-23 13:36] LABS: CALCIUM 8.7 mg/dL (8.5-10.1)
[2021-10-23 13:37] LABS: ALBUMIN 3.3 g/dl (3.4-5.0); ANION GAP 8 MMOL/L (8-16); BLOOD UREA NITROGEN 12.9 mg/dL (7-18); CO2 28 mmol/L (21-32); GLUCOSE,RANDOM 170 mg/dL (74-106)
[2021-10-23 13:40] LABS: CREATININE 1.3 mg/dL (0.55-1.3); SGPT/ALT 23 U/L (13-61)
[2021-10-23 13:41] LABS: SGOT/AST 11 U/L (15-37)
[2021-10-23 13:42] LABS: BILIRUBIN,TOTAL 0.5 mg/dL (0.2-1); TOT PROT 6.6 g/dl (6.4-8.2)
[2021-10-23 13:43] LABS: ALK PHOS 130 U/L (45-117)
[2021-10-23 14:38] LABS: URINE RBC 2223.2 /uL (0-23.9); YEAST NONE SEEN (NEGATIVE)
== END 2021-10-23 14:20 | disposition home or self-care (01) ==
LOC: JER 09:56
DX: R31.9 Hematuria, unspecified (principal); Z96.0 Presence of urogenital implants
CPT/HCPCS: 36415; 71045-TC-FY; 80053; 81003; 83605; 84484; 85025; 85610; 85730; 87040; 87086; 93005; 93010; 99285-25

== ENCOUNTER 2021-10-30 17:12 | Inpatient (IN) | payer OTHER ==
[2021-10-30 20:30] LABS: BASO % 0.5 % (0-2.0); EOS % 1.9 % (0-4.5); HEMATOCRIT 32.9 % (35.4-49); HEMOGLOBIN 10.9 GM/dL (11.7-16.9); LYMPH % 18.7 % (8-40); MCH 24.7 pg (25.7-33.7); MCHC 33.1 g/dl (32.0-35.9); MEAN CELL VOLUME 74.6 fl (80-96); MEAN PLT VOLUME 8.3 fl (7.5-11.1); MONO % 14.5 % (3.8-10.2); NEUT % 64.4 % (42.8-82.8); PLATELET COUNT 306 10^3/uL (134-434); RBC 4.42 M/mm3 (4.00-5.60); RDW 16.1 % (11.9-15.9)
[2021-10-30 20:45] LABS: CHLORIDE 100 mmol/L (98-107); SODIUM 135 mmol/L (136-145)
[2021-10-30 20:46] LABS: BLOOD UREA NITROGEN 21.2 mg/dL (7-18); CALCIUM 8.7 mg/dL (8.5-10.1)
[2021-10-30 20:48] LABS: ALBUMIN 3.1 g/dl (3.4-5.0); ANION GAP 7 MMOL/L (8-16); CO2 28 mmol/L (21-32); GLUCOSE,RANDOM 240 mg/dL (74-106); MAGNESIUM 2.5 mg/dL (1.8-2.4)
[2021-10-30 20:50] LABS: ACTIVATED PTT 32.4 SECONDS (25.2-36.5); CREATININE 1.5 mg/dL (0.55-1.3); INR 1.18 (0.83-1.09); PROTHROMBIN TIME (PATIENT) 13.6 SEC (9.7-13.0)
[2021-10-30 20:51] LABS: BILIRUBIN,TOTAL 0.4 mg/dL (0.2-1); SGOT/AST 62 U/L (15-37); SGPT/ALT 92 U/L (13-61); TOT PROT 6.8 g/dl (6.4-8.2)
[2021-10-30 20:51] LABS: EPI CELLS 8 /uL (0-25.1); HYALINE CASTS 5 /uL (0-3.1); PH,URINE 6.5 (5.0-8.0); URINE APPEARANCE TURBID; URINE BACTERIA 1897 /uL (0-1359); URINE BILIRUBIN NEGATIVE (NEGATIVE); URINE COLOR YELLOW; URINE GLUCOSE (UA) NEGATIVE (NEGATIVE); URINE KETONE NEGATIVE (NEGATIVE); URINE LEUK ESTERASE 3+ (NEGATIVE); URINE NITRITE NEGATIVE (NEGATIVE); URINE PROTEIN 2+ (NEGATIVE); URINE RBC 105 /uL (0-23.9); URINE UROBILINOGEN 0.2 mg/dL (0.2-1.0); URINE WBC 5934 /uL (0-25.8)
[2021-10-30 20:53] LABS: ALK PHOS 122 U/L (45-117)
[2021-10-30] MEDS ORDERED: SODIUM CHLORIDE 0.9% 500 ML INFUS.BAG IV ONE (21:09)
[2021-10-30] MEDS ORDERED: PIPERACILLIN/TAZOB 2.25 GM 2.25 GM in DEXTROSE 5%-WATER - 50 ML IVPB ONE (21:09)
[2021-10-30] MEDS ORDERED: VANCOMYCIN 1 GM in D5W (PRE-DOCKED) 1,000 MG/250 ML IVPB ONE (21:09)
[2021-10-30] MEDS ORDERED: PIPERACILLIN/TAZOB 2.25 GM 2.25 GM/50 ML BAG IVPB ONE (21:32)
[2021-10-30] MEDS ORDERED: VANCOMYCIN 1 GRAM (PRE-DOCKED) 1,000 MG/250 ML BAG IVPB ONE (21:32)
[2021-10-31] MEDS ORDERED: ACETAMINOPHEN 325 MG TABLET (FP) PO PRN (00:07)
[2021-10-31] MEDS ORDERED: GABAPENTIN 100 MG CAPSULE ONE ×3 (02:27→22:32)
[2021-10-31] MEDS ORDERED: PIPERACILLIN/TAZOB 2.25 GM 2.25 GM/50 ML BAG IVPB ONE ×2 (02:27→09:02)
[2021-10-31] MEDS: BRIMONIDINE TARTRATE 0.2% OPHTHALMIC 5 ML BOTTLE OU SCH ×3 (03:00→22:45)
[2021-10-31] MEDS: PIPERACILLIN/TAZOB 2.25 GM 2.25 GM in DEXTROSE 5%-WATER - 50 ML IVPB SCH ×2 (03:00→09:19)
[2021-10-31] MEDS: GABAPENTIN 300 MG CAPSULE PO SCH ×3 (03:00→22:45)
[2021-10-31] MEDS: LATANOPROST 0.005% OPHTH SOLN 2.5ML BOTTLE OU SCH (03:00)
[2021-10-31] MEDS: MEMANTINE HCL 10 MG TABLET (FP) PO SCH ×2 (03:00→09:40)
[2021-10-31 07:21] LABS: BASO % 0.6 % (0-2.0); EOS % 3.8 % (0-4.5); HEMATOCRIT 31.7 % (35.4-49); HEMOGLOBIN 10.7 GM/dL (11.7-16.9); LYMPH % 21.8 % (8-40); MCH 25.1 pg (25.7-33.7); MCHC 33.9 g/dl (32.0-35.9); MEAN PLT VOLUME 7.9 fl (7.5-11.1); MONO % 16.8 % (3.8-10.2); PLATELET COUNT 306 10^3/uL (134-434); RBC 4.28 M/mm3 (4.00-5.60); RDW 15.9 % (11.9-15.9); WHITE BLOOD COUNT 6.6 K/mm3 (4.0-10.0)
[2021-10-31 07:34] LABS: CALCIUM 8.7 mg/dL (8.5-10.1)
[2021-10-31 07:35] LABS: BLOOD UREA NITROGEN 16.6 mg/dL (7-18)
[2021-10-31] MEDS ORDERED: sitaGLIPtin PHOSPHATE 50 MG TABLET ONE (07:36)
[2021-10-31 07:39] LABS: CREATININE 1.3 mg/dL (0.55-1.3)
[2021-10-31] MEDS: INSULIN SLIDING SCALE (NOVOLOG) 1 VIAL SQ SCH ×4 (08:00→22:45)
[2021-10-31] MEDS ORDERED: TAMSULOSIN HCL 0.4 MG CAP ONE ×3 (09:02→22:33)
[2021-10-31] MEDS: TAMSULOSIN HCL 0.4 MG CAP PO SCH ×2 (09:19→22:44)
[2021-10-31] MEDS ORDERED: ASPIRIN 81 MG CHEWABLE TABLETS ONE (09:31)
[2021-10-31] MEDS: ASPIRIN 81 MG CHEWABLE TABLETS PO SCH (09:40)
[2021-10-31] MEDS: DONEPEZIL HCL 10 MG TABLET (FP) PO SCH (09:40)
[2021-10-31] MEDS: amLODIPine BESYLATE 10 MG TABLET (FP) PO SCH (09:40)
[2021-10-31] MEDS ORDERED: LOSARTAN POTASSIUM 100 MG TABLET PO SCH (10:00)
[2021-10-31] MEDS ORDERED: INSULIN SLIDING SCALE (NOVOLOG) 1 VIAL SQ ONE (11:25)
[2021-10-31] MEDS ORDERED: PIPERACILLIN/TAZOB 3.375 GM 3.375 GM/50 ML BAG IVPB ONE (17:23)
[2021-10-31] MEDS: PIPERACILLIN/TAZOB 3.375 GM 3.375 GM in DEXTROSE 5%-WATER - 50 ML IVPB SCH (17:30)
[2021-10-31] MEDS ORDERED: PIPERACILLIN/TAZOB 3.375 GM 3.375 GM in DEXTROSE 5%-WATER - 50 ML IVPB SCH (19:30)
[2021-10-31] MEDS ORDERED: VANCOMYCIN 1 GRAM (PRE-DOCKED) 1,000 MG/250 ML BAG IVPB SCH (22:00)
[2021-10-31] MEDS ORDERED: SERTRALINE HCL 50 MG TABLET (FP) ONE (22:32)
[2021-10-31] MEDS: QUEtiapine FUMARATE 25 MG TABLET PO SCH (22:45)
[2021-11-01] MEDS: MEMANTINE HCL 10 MG TABLET (FP) PO SCH ×3 (00:47→21:40)
[2021-11-01] MEDS: LATANOPROST 0.005% OPHTH SOLN 2.5ML BOTTLE OU SCH ×2 (00:47→21:51)
[2021-11-01] MEDS ORDERED: PIPERACILLIN/TAZOBACTAM 3.375 GM VIAL IVPB ONE ×3 (02:10→17:02)
[2021-11-01] MEDS ORDERED: DEXTROSE 5%-WATER - 50 ML IVPB ONE ×3 (02:10→17:02)
[2021-11-01] MEDS: PIPERACILLIN/TAZOB 3.375 GM 3.375 GM in DEXTROSE 5%-WATER - 50 ML IVPB SCH ×3 (02:14→17:16)
[2021-11-01] MEDS ORDERED: PIPERACILLIN/TAZOB 2.25 GM 2.25 GM in DEXTROSE 5%-WATER - 50 ML IVPB SCH (03:00)
[2021-11-01] MEDS: INSULIN SLIDING SCALE (NOVOLOG) 1 VIAL SQ SCH ×4 (06:10→21:51)
[2021-11-01] MEDS: PIPERACILLIN/TAZOB 2.25 GM 2.25 GM in DEXTROSE 5%-WATER - 50 ML IVPB SCH (07:45)
[2021-11-01] MEDS: TAMSULOSIN HCL 0.4 MG CAP PO SCH ×2 (09:25→21:50)
[2021-11-01] MEDS: BRIMONIDINE TARTRATE 0.2% OPHTHALMIC 5 ML BOTTLE OU SCH ×2 (09:26→21:50)
[2021-11-01] MEDS: ASPIRIN 81 MG CHEWABLE TABLETS PO SCH (09:26)
[2021-11-01] MEDS: GABAPENTIN 300 MG CAPSULE PO SCH ×2 (09:26→21:40)
[2021-11-01] MEDS: amLODIPine BESYLATE 10 MG TABLET (FP) PO SCH (09:26)
[2021-11-01] MEDS: LOSARTAN POTASSIUM 50 MG TABLET PO SCH (09:26)
[2021-11-01] MEDS: DONEPEZIL HCL 10 MG TABLET (FP) PO SCH (09:26)
[2021-11-01 10:17] LABS: BASO % 0.6 % (0-2.0); EOS % 4.4 % (0-4.5); HEMATOCRIT 32.6 % (35.4-49); HEMOGLOBIN 10.5 GM/dL (11.7-16.9); LYMPH % 17.5 % (8-40); MCH 24.3 pg (25.7-33.7); MCHC 32.2 g/dl (32.0-35.9); MEAN CELL VOLUME 75.5 fl (80-96); NEUT % 65.5 % (42.8-82.8); PLATELET COUNT 353 10^3/uL (134-434); RBC 4.31 M/mm3 (4.00-5.60); RDW 15.9 % (11.9-15.9); WHITE BLOOD COUNT 8.1 K/mm3 (4.0-10.0)
[2021-11-01 11:02] LABS: CALCIUM 9.1 mg/dL (8.5-10.1)
[2021-11-01 11:04] LABS: BLOOD UREA NITROGEN 16.6 mg/dL (7-18)
[2021-11-01 11:06] LABS: CREATININE 1.2 mg/dL (0.55-1.3)
[2021-11-01] MEDS: QUEtiapine FUMARATE 25 MG TABLET PO SCH (21:40)
[2021-11-01] MEDS ORDERED: VANCOMYCIN 1 GRAM (PRE-DOCKED) 1,000 MG/250 ML BAG IVPB SCH (22:00)
[2021-11-02] MEDS ORDERED: DEXTROSE 5%-WATER - 50 ML IVPB ONE ×3 (01:00→16:47)
[2021-11-02] MEDS ORDERED: PIPERACILLIN/TAZOBACTAM 3.375 GM VIAL IVPB ONE ×3 (01:00→16:47)
[2021-11-02] MEDS: PIPERACILLIN/TAZOB 3.375 GM 3.375 GM in DEXTROSE 5%-WATER - 50 ML IVPB SCH ×3 (01:04→18:04)
[2021-11-02] MEDS: INSULIN SLIDING SCALE (NOVOLOG) 1 VIAL SQ SCH ×4 (06:13→21:30)
[2021-11-02] MEDS: DONEPEZIL HCL 10 MG TABLET (FP) PO SCH (10:55)
[2021-11-02] MEDS: GABAPENTIN 300 MG CAPSULE PO SCH ×2 (10:55→21:08)
[2021-11-02] MEDS: ASPIRIN 81 MG CHEWABLE TABLETS PO SCH (10:55)
[2021-11-02] MEDS: TAMSULOSIN HCL 0.4 MG CAP PO SCH ×2 (10:55→21:08)
[2021-11-02] MEDS: LOSARTAN POTASSIUM 50 MG TABLET PO SCH (10:55)
[2021-11-02] MEDS: MEMANTINE HCL 10 MG TABLET (FP) PO SCH ×2 (10:55→21:08)
[2021-11-02] MEDS: amLODIPine BESYLATE 10 MG TABLET (FP) PO SCH (10:55)
[2021-11-02] MEDS ORDERED: INSULIN (NOVOLOG) ASPART 100 UNITS/ML 10ML VIAL ONE (11:21)
[2021-11-02] MEDS: BRIMONIDINE TARTRATE 0.2% OPHTHALMIC 5 ML BOTTLE OU SCH ×2 (11:25→21:08)
[2021-11-02 11:48] LABS: BASO % 0.5 % (0-2.0); EOS % 3.7 % (0-4.5); HEMATOCRIT 33.6 % (35.4-49); LYMPH % 18.9 % (8-40); MCH 24.5 pg (25.7-33.7); MCHC 32.6 g/dl (32.0-35.9); MEAN CELL VOLUME 75.2 fl (80-96); MEAN PLT VOLUME 7.7 fl (7.5-11.1); NEUT % 66.9 % (42.8-82.8); PLATELET COUNT 396 10^3/uL (134-434); RBC 4.47 M/mm3 (4.00-5.60); RDW 15.9 % (11.9-15.9); WHITE BLOOD COUNT 9.5 K/mm3 (4.0-10.0)
[2021-11-02 12:09] LABS: BLOOD UREA NITROGEN 14.9 mg/dL (7-18)
[2021-11-02 12:12] LABS: CREATININE 1.2 mg/dL (0.55-1.3)
[2021-11-02] MEDS: QUEtiapine FUMARATE 25 MG TABLET PO SCH (21:08)
[2021-11-02] MEDS: LATANOPROST 0.005% OPHTH SOLN 2.5ML BOTTLE OU SCH (21:12)
[2021-11-03] MEDS ORDERED: PIPERACILLIN/TAZOBACTAM 3.375 GM VIAL IVPB ONE ×3 (01:22→17:30)
[2021-11-03] MEDS ORDERED: DEXTROSE 5%-WATER - 50 ML IVPB ONE ×3 (01:22→17:31)
[2021-11-03] MEDS: PIPERACILLIN/TAZOB 3.375 GM 3.375 GM in DEXTROSE 5%-WATER - 50 ML IVPB SCH ×3 (01:23→18:05)
[2021-11-03] MEDS: INSULIN SLIDING SCALE (NOVOLOG) 1 VIAL SQ SCH ×4 (06:11→22:35)
[2021-11-03] MEDS: MEMANTINE HCL 10 MG TABLET (FP) PO SCH ×2 (09:30→22:04)
[2021-11-03] MEDS: ASPIRIN 81 MG CHEWABLE TABLETS PO SCH (09:30)
[2021-11-03] MEDS: TAMSULOSIN HCL 0.4 MG CAP PO SCH ×2 (09:30→22:06)
[2021-11-03] MEDS: LOSARTAN POTASSIUM 50 MG TABLET PO SCH (09:30)
[2021-11-03] MEDS: GABAPENTIN 300 MG CAPSULE PO SCH ×2 (09:30→22:04)
[2021-11-03] MEDS: DONEPEZIL HCL 10 MG TABLET (FP) PO SCH (09:30)
[2021-11-03] MEDS: amLODIPine BESYLATE 10 MG TABLET (FP) PO SCH (09:30)
[2021-11-03] MEDS: BRIMONIDINE TARTRATE 0.2% OPHTHALMIC 5 ML BOTTLE OU SCH ×2 (09:36→22:07)
[2021-11-03] MEDS: PANTOPRAZOLE 20 MG TABLET PO SCH (11:52)
[2021-11-03] MEDS: ENOXAPARIN NA (PORCINE) 30 MG/0.3 ML DISP.SYRIN SQ SCH (11:52)
[2021-11-03] MEDS: QUEtiapine FUMARATE 25 MG TABLET PO SCH (22:04)
[2021-11-03] MEDS: LATANOPROST 0.005% OPHTH SOLN 2.5ML BOTTLE OU SCH (22:07)
[2021-11-04] MEDS ORDERED: PIPERACILLIN/TAZOBACTAM 3.375 GM VIAL IVPB ONE ×3 (00:40→17:19)
[2021-11-04] MEDS ORDERED: DEXTROSE 5%-WATER - 50 ML IVPB ONE ×3 (00:41→17:19)
[2021-11-04] MEDS: PIPERACILLIN/TAZOB 3.375 GM 3.375 GM in DEXTROSE 5%-WATER - 50 ML IVPB SCH ×3 (01:06→17:37)
[2021-11-04] MEDS: INSULIN SLIDING SCALE (NOVOLOG) 1 VIAL SQ SCH ×4 (06:09→21:52)
[2021-11-04] MEDS: TAMSULOSIN HCL 0.4 MG CAP PO SCH ×2 (09:56→21:30)
[2021-11-04] MEDS: ZINC SULFATE 220 MG CAPSULE (FP) PO SCH (09:56)
[2021-11-04] MEDS: ENOXAPARIN NA (PORCINE) 30 MG/0.3 ML DISP.SYRIN SQ SCH (09:56)
[2021-11-04] MEDS: LOSARTAN POTASSIUM 50 MG TABLET PO SCH (09:56)
[2021-11-04] MEDS: MEMANTINE HCL 10 MG TABLET (FP) PO SCH ×2 (09:57→21:52)
[2021-11-04] MEDS: PANTOPRAZOLE 20 MG TABLET PO SCH (09:57)
[2021-11-04] MEDS: ASCORBIC ACID 250 MG TABLET (FP) PO SCH (09:57)
[2021-11-04] MEDS: amLODIPine BESYLATE 10 MG TABLET (FP) PO SCH (09:57)
[2021-11-04] MEDS: DONEPEZIL HCL 10 MG TABLET (FP) PO SCH (09:57)
[2021-11-04] MEDS: MULTIVITAMINS THER W-MINERALS COMBO TABLET (FP) PO SCH (09:57)
[2021-11-04] MEDS: GABAPENTIN 300 MG CAPSULE PO SCH ×2 (09:57→21:52)
[2021-11-04] MEDS: ASPIRIN 81 MG CHEWABLE TABLETS PO SCH (09:57)
[2021-11-04] MEDS: BRIMONIDINE TARTRATE 0.2% OPHTHALMIC 5 ML BOTTLE OU SCH ×2 (09:58→21:53)
[2021-11-04 10:11] LABS: CALCIUM 9.4 mg/dL (8.5-10.1)
[2021-11-04 10:12] LABS: BLOOD UREA NITROGEN 11.8 mg/dL (7-18)
[2021-11-04 10:15] LABS: CREATININE 1.2 mg/dL (0.55-1.3)
[2021-11-04] MEDS: QUEtiapine FUMARATE 25 MG TABLET PO SCH (21:52)
[2021-11-04] MEDS: LATANOPROST 0.005% OPHTH SOLN 2.5ML BOTTLE OU SCH (21:54)
[2021-11-05] MEDS ORDERED: PIPERACILLIN/TAZOBACTAM 3.375 GM VIAL IVPB ONE ×3 (00:23→17:45)
[2021-11-05] MEDS: PIPERACILLIN/TAZOB 3.375 GM 3.375 GM in DEXTROSE 5%-WATER - 50 ML IVPB SCH ×3 (01:15→17:54)
[2021-11-05] MEDS: INSULIN SLIDING SCALE (NOVOLOG) 1 VIAL SQ SCH ×4 (06:55→21:57)
[2021-11-05] MEDS ORDERED: DEXTROSE 5%-WATER - 50 ML IVPB ONE ×2 (09:00→17:45)
[2021-11-05 09:12] LABS: BASO % 0.3 % (0-2.0); EOS % 3.1 % (0-4.5); HEMOGLOBIN 11.5 GM/dL (11.7-16.9); LYMPH % 16.2 % (8-40); MCH 24.4 pg (25.7-33.7); MCHC 32.7 g/dl (32.0-35.9); MEAN CELL VOLUME 74.6 fl (80-96); MEAN PLT VOLUME 7.3 fl (7.5-11.1); MONO % 7.6 % (3.8-10.2); NEUT % 72.8 % (42.8-82.8); PLATELET COUNT 417 10^3/uL (134-434); RBC 4.69 M/mm3 (4.00-5.60); WHITE BLOOD COUNT 11.5 K/mm3 (4.0-10.0)
[2021-11-05 09:14] LABS: INR 1.15 (0.83-1.09); PROTHROMBIN TIME (PATIENT) 13.3 SEC (9.7-13.0)
[2021-11-05] MEDS: BRIMONIDINE TARTRATE 0.2% OPHTHALMIC 5 ML BOTTLE OU SCH ×2 (09:18→21:59)
[2021-11-05] MEDS: ENOXAPARIN NA (PORCINE) 30 MG/0.3 ML DISP.SYRIN SQ SCH (09:18)
[2021-11-05] MEDS: ASPIRIN 81 MG CHEWABLE TABLETS PO SCH (09:18)
[2021-11-05] MEDS: LOSARTAN POTASSIUM 50 MG TABLET PO SCH (09:19)
[2021-11-05] MEDS: ZINC SULFATE 220 MG CAPSULE (FP) PO SCH (09:20)
[2021-11-05] MEDS: GABAPENTIN 300 MG CAPSULE PO SCH ×2 (09:20→21:56)
[2021-11-05] MEDS: MEMANTINE HCL 10 MG TABLET (FP) PO SCH ×2 (09:20→21:56)
[2021-11-05] MEDS: amLODIPine BESYLATE 10 MG TABLET (FP) PO SCH (09:20)
[2021-11-05] MEDS: DONEPEZIL HCL 10 MG TABLET (FP) PO SCH (09:20)
[2021-11-05] MEDS: ASCORBIC ACID 250 MG TABLET (FP) PO SCH (09:20)
[2021-11-05] MEDS: MULTIVITAMINS THER W-MINERALS COMBO TABLET (FP) PO SCH (09:21)
[2021-11-05] MEDS: TAMSULOSIN HCL 0.4 MG CAP PO SCH ×2 (09:24→21:56)
[2021-11-05] MEDS: PANTOPRAZOLE 20 MG TABLET PO SCH (09:24)
[2021-11-05 09:43] LABS: ALBUMIN 2.8 g/dl (3.4-5.0); BLOOD UREA NITROGEN 16.9 mg/dL (7-18)
[2021-11-05 09:46] LABS: CREATININE 1.4 mg/dL (0.55-1.3)
[2021-11-05 09:47] LABS: BILIRUBIN,TOTAL 0.4 mg/dL (0.2-1); TOT PROT 6.4 g/dl (6.4-8.2)
[2021-11-05] MEDS ORDERED: SODIUM CHLORIDE 1,000 ML IV SCH (19:30)
[2021-11-05] MEDS: QUEtiapine FUMARATE 25 MG TABLET PO SCH (21:56)
[2021-11-05] MEDS: LATANOPROST 0.005% OPHTH SOLN 2.5ML BOTTLE OU SCH (21:59)
[2021-11-06] MEDS ORDERED: DEXTROSE 5%-WATER - 50 ML IVPB ONE ×3 (01:36→17:06)
[2021-11-06] MEDS ORDERED: PIPERACILLIN/TAZOBACTAM 3.375 GM VIAL IVPB ONE ×3 (01:36→17:06)
[2021-11-06] MEDS: PIPERACILLIN/TAZOB 3.375 GM 3.375 GM in DEXTROSE 5%-WATER - 50 ML IVPB SCH ×3 (01:48→17:19)
[2021-11-06] MEDS: INSULIN SLIDING SCALE (NOVOLOG) 1 VIAL SQ SCH ×4 (06:58→21:43)
[2021-11-06] MEDS: ASCORBIC ACID 250 MG TABLET (FP) PO SCH (09:33)
[2021-11-06] MEDS: ASPIRIN 81 MG CHEWABLE TABLETS PO SCH (09:33)
[2021-11-06] MEDS: BRIMONIDINE TARTRATE 0.2% OPHTHALMIC 5 ML BOTTLE OU SCH ×2 (09:33→21:38)
[2021-11-06] MEDS: TAMSULOSIN HCL 0.4 MG CAP PO SCH ×2 (09:34→21:36)
[2021-11-06] MEDS: MULTIVITAMINS THER W-MINERALS COMBO TABLET (FP) PO SCH (09:34)
[2021-11-06] MEDS: GABAPENTIN 300 MG CAPSULE PO SCH ×2 (09:34→21:37)
[2021-11-06] MEDS: ENOXAPARIN NA (PORCINE) 30 MG/0.3 ML DISP.SYRIN SQ SCH (09:34)
[2021-11-06] MEDS: DONEPEZIL HCL 10 MG TABLET (FP) PO SCH (09:34)
[2021-11-06] MEDS: LOSARTAN POTASSIUM 50 MG TABLET PO SCH (09:34)
[2021-11-06] MEDS: ZINC SULFATE 220 MG CAPSULE (FP) PO SCH (09:34)
[2021-11-06] MEDS: amLODIPine BESYLATE 10 MG TABLET (FP) PO SCH (09:35)
[2021-11-06] MEDS: PANTOPRAZOLE 20 MG TABLET PO SCH (09:35)
[2021-11-06] MEDS: MEMANTINE HCL 10 MG TABLET (FP) PO SCH ×2 (09:35→21:37)
[2021-11-06] MEDS ORDERED: PROPOFOL 20 ML ONE (12:54)
[2021-11-06] MEDS ORDERED: LIDOCAINE HCL/PF 2% SDV 5ML VIAL ONE (12:54)
[2021-11-06] MEDS ORDERED: ceFAZolin SODIUM 1 GM VIAL IVPB ONE (13:32)
[2021-11-06] MEDS ORDERED: ceFAZolin SODIUM 1 GM VIAL ONE (13:32)
[2021-11-06] MEDS ORDERED: ACETAMINOPHEN 325 MG TABLET (FP) PO PRN (14:50)
[2021-11-06] MEDS ORDERED: ONDANSETRON 4 MG/2 ML VIAL IVPUSH PRN (16:22)
[2021-11-06] MEDS ORDERED: LACTATED RINGERS SOLUTION 1,000 ML IV SCH (16:30)
[2021-11-06] MEDS: SODIUM CHLORIDE 1,000 ML IV SCH (16:46)
[2021-11-06 21:17] VITALS: BMI 25.8
[2021-11-06] MEDS: QUEtiapine FUMARATE 50 MG TABLET PO SCH (21:37)
[2021-11-06] MEDS: LATANOPROST 0.005% OPHTH SOLN 2.5ML BOTTLE OU SCH (21:40)
[2021-11-07] MEDS ORDERED: DEXTROSE 5%-WATER - 50 ML IVPB ONE ×3 (02:12→17:36)
[2021-11-07] MEDS ORDERED: PIPERACILLIN/TAZOBACTAM 3.375 GM VIAL IVPB ONE ×3 (02:12→17:35)
[2021-11-07] MEDS: PIPERACILLIN/TAZOB 3.375 GM 3.375 GM in DEXTROSE 5%-WATER - 50 ML IVPB SCH ×3 (02:25→17:41)
[2021-11-07] MEDS: INSULIN SLIDING SCALE (NOVOLOG) 1 VIAL SQ SCH ×4 (06:42→22:27)
[2021-11-07 09:40] LABS: BASO % 0.5 % (0-2.0); EOS % 2.8 % (0-4.5); HEMATOCRIT 32.9 % (35.4-49); HEMOGLOBIN 10.5 GM/dL (11.7-16.9); LYMPH % 11.7 % (8-40); MEAN CELL VOLUME 75.1 fl (80-96); MEAN PLT VOLUME 7.4 fl (7.5-11.1); MONO % 5.7 % (3.8-10.2); NEUT % 79.3 % (42.8-82.8); PLATELET COUNT 419 10^3/uL (134-434); RBC 4.39 M/mm3 (4.00-5.60); WHITE BLOOD COUNT 17.1 K/mm3 (4.0-10.0)
[2021-11-07 09:59] LABS: CALCIUM 8.6 mg/dL (8.5-10.1)
[2021-11-07 10:00] LABS: BLOOD UREA NITROGEN 14.3 mg/dL (7-18)
[2021-11-07 10:03] LABS: CREATININE 1.3 mg/dL (0.55-1.3)
[2021-11-07] MEDS: amLODIPine BESYLATE 10 MG TABLET (FP) PO SCH (11:48)
[2021-11-07] MEDS: TAMSULOSIN HCL 0.4 MG CAP PO SCH ×2 (11:48→22:20)
[2021-11-07] MEDS: LOSARTAN POTASSIUM 50 MG TABLET PO SCH (11:48)
[2021-11-07] MEDS: MULTIVITAMINS THER W-MINERALS COMBO TABLET (FP) PO SCH (11:48)
[2021-11-07] MEDS: GABAPENTIN 300 MG CAPSULE PO SCH ×2 (11:48→22:19)
[2021-11-07] MEDS: ZINC SULFATE 220 MG CAPSULE (FP) PO SCH (11:48)
[2021-11-07] MEDS: MEMANTINE HCL 10 MG TABLET (FP) PO SCH ×2 (11:49→22:20)
[2021-11-07] MEDS: PANTOPRAZOLE 20 MG TABLET PO SCH (11:49)
[2021-11-07] MEDS: DONEPEZIL HCL 10 MG TABLET (FP) PO SCH (11:50)
[2021-11-07] MEDS: ASCORBIC ACID 250 MG TABLET (FP) PO SCH (11:51)
[2021-11-07] MEDS: BRIMONIDINE TARTRATE 0.2% OPHTHALMIC 5 ML BOTTLE OU SCH ×2 (12:05→22:20)
[2021-11-07] MEDS: SODIUM CHLORIDE 1,000 ML IV SCH (17:41)
[2021-11-07] MEDS: QUEtiapine FUMARATE 50 MG TABLET PO SCH (22:19)
[2021-11-07] MEDS: LATANOPROST 0.005% OPHTH SOLN 2.5ML BOTTLE OU SCH (22:21)
[2021-11-08] MEDS ORDERED: PIPERACILLIN/TAZOBACTAM 3.375 GM VIAL IVPB ONE ×3 (03:38→17:26)
[2021-11-08] MEDS ORDERED: DEXTROSE 5%-WATER - 50 ML IVPB ONE ×3 (03:38→17:27)
[2021-11-08] MEDS: PIPERACILLIN/TAZOB 3.375 GM 3.375 GM in DEXTROSE 5%-WATER - 50 ML IVPB SCH ×3 (03:41→18:02)
[2021-11-08] MEDS: INSULIN SLIDING SCALE (NOVOLOG) 1 VIAL SQ SCH ×4 (06:54→22:22)
[2021-11-08 09:24] LABS: BASO % 0.4 % (0-2.0); EOS % 4.3 % (0-4.5); HEMATOCRIT 33.9 % (35.4-49); HEMOGLOBIN 11.2 GM/dL (11.7-16.9); LYMPH % 18.8 % (8-40); MCH 24.6 pg (25.7-33.7); MCHC 32.9 g/dl (32.0-35.9); MEAN CELL VOLUME 74.7 fl (80-96); MEAN PLT VOLUME 7.4 fl (7.5-11.1); MONO % 6.2 % (3.8-10.2); NEUT % 70.3 % (42.8-82.8); PLATELET COUNT 363 10^3/uL (134-434); RBC 4.55 M/mm3 (4.00-5.60); RDW 16.2 % (11.9-15.9)
[2021-11-08 09:46] LABS: CALCIUM 8.9 mg/dL (8.5-10.1)
[2021-11-08 09:47] LABS: BLOOD UREA NITROGEN 12.8 mg/dL (7-18)
[2021-11-08 09:50] LABS: CREATININE 1.2 mg/dL (0.55-1.3)
[2021-11-08] MEDS: MEMANTINE HCL 10 MG TABLET (FP) PO SCH ×2 (11:15→22:15)
[2021-11-08] MEDS: amLODIPine BESYLATE 10 MG TABLET (FP) PO SCH (11:17)
[2021-11-08] MEDS: TAMSULOSIN HCL 0.4 MG CAP PO SCH ×2 (11:17→22:14)
[2021-11-08] MEDS: MULTIVITAMINS THER W-MINERALS COMBO TABLET (FP) PO SCH (11:17)
[2021-11-08] MEDS: PANTOPRAZOLE 20 MG TABLET PO SCH (11:17)
[2021-11-08] MEDS: ZINC SULFATE 220 MG CAPSULE (FP) PO SCH (11:17)
[2021-11-08] MEDS: GABAPENTIN 300 MG CAPSULE PO SCH ×2 (11:17→22:15)
[2021-11-08] MEDS: LOSARTAN POTASSIUM 50 MG TABLET PO SCH (11:17)
[2021-11-08] MEDS: DONEPEZIL HCL 10 MG TABLET (FP) PO SCH (11:17)
[2021-11-08] MEDS: ASCORBIC ACID 250 MG TABLET (FP) PO SCH (11:18)
[2021-11-08] MEDS: BRIMONIDINE TARTRATE 0.2% OPHTHALMIC 5 ML BOTTLE OU SCH ×2 (11:19→22:16)
[2021-11-08 14:32] VITALS: PULSE 60
[2021-11-08] MEDS: SODIUM CHLORIDE 1,000 ML IV SCH (16:51)
[2021-11-08] MEDS: LATANOPROST 0.005% OPHTH SOLN 2.5ML BOTTLE OU SCH (22:15)
[2021-11-08] MEDS: QUEtiapine FUMARATE 50 MG TABLET PO SCH (22:15)
[2021-11-09] MEDS ORDERED: PIPERACILLIN/TAZOBACTAM 3.375 GM VIAL IVPB ONE ×2 (01:47→09:18)
[2021-11-09] MEDS ORDERED: DEXTROSE 5%-WATER - 50 ML IVPB ONE ×2 (01:47→09:18)
[2021-11-09] MEDS: PIPERACILLIN/TAZOB 3.375 GM 3.375 GM in DEXTROSE 5%-WATER - 50 ML IVPB SCH ×2 (02:03→09:26)
[2021-11-09] MEDS: INSULIN SLIDING SCALE (NOVOLOG) 1 VIAL SQ SCH ×2 (06:42→12:08)
[2021-11-09] MEDS: TAMSULOSIN HCL 0.4 MG CAP PO SCH (09:19)
[2021-11-09] MEDS: BRIMONIDINE TARTRATE 0.2% OPHTHALMIC 5 ML BOTTLE OU SCH (09:25)
[2021-11-09] MEDS: PANTOPRAZOLE 20 MG TABLET PO SCH (09:26)
[2021-11-09] MEDS: LOSARTAN POTASSIUM 50 MG TABLET PO SCH (09:26)
[2021-11-09] MEDS: MULTIVITAMINS THER W-MINERALS COMBO TABLET (FP) PO SCH (09:26)
[2021-11-09] MEDS: GABAPENTIN 300 MG CAPSULE PO SCH (09:26)
[2021-11-09] MEDS: amLODIPine BESYLATE 10 MG TABLET (FP) PO SCH (09:26)
[2021-11-09] MEDS: MEMANTINE HCL 10 MG TABLET (FP) PO SCH (09:26)
[2021-11-09] MEDS: ZINC SULFATE 220 MG CAPSULE (FP) PO SCH (09:26)
[2021-11-09] MEDS: DONEPEZIL HCL 10 MG TABLET (FP) PO SCH (09:26)
[2021-11-09 09:32] LABS: BASO % 0.5 % (0-2.0); EOS % 4.3 % (0-4.5); HEMATOCRIT 33.1 % (35.4-49); HEMOGLOBIN 10.6 GM/dL (11.7-16.9); LYMPH % 17.6 % (8-40); MCH 24.1 pg (25.7-33.7); MCHC 31.9 g/dl (32.0-35.9); MEAN CELL VOLUME 75.4 fl (80-96); MEAN PLT VOLUME 7.7 fl (7.5-11.1); MONO % 5.8 % (3.8-10.2); NEUT % 71.8 % (42.8-82.8); PLATELET COUNT 353 10^3/uL (134-434); RBC 4.39 M/mm3 (4.00-5.60); RDW 16.6 % (11.9-15.9); WHITE BLOOD COUNT 12.5 K/mm3 (4.0-10.0)
[2021-11-09] MEDS: ASCORBIC ACID 250 MG TABLET (FP) PO SCH (09:32)
[2021-11-09 09:44] VITALS: BP 145/65; TEMP 98.1
[2021-11-09 10:13] LABS: BLOOD UREA NITROGEN 14.7 mg/dL (7-18); CALCIUM 8.9 mg/dL (8.5-10.1)
[2021-11-09 10:16] LABS: CREATININE 1.3 mg/dL (0.55-1.3)
== END 2021-11-09 17:49 | disposition home health service (06) | DRG 666 ==
LOC: JER 17:12 → JERBED 21:36 → J6S 11-01 01:36
PROVIDERS: ADMIT Internal Medicine; ATTEND Internal Medicine
PROC: 0V508ZZ Destruction of Prostate, Via Natural or Artificial Opening Endoscopic (ICD-10-PCS; principal; 2021-11-06 13:00)
PROC: 0VT08ZZ Resection of Prostate, Via Natural or Artificial Opening Endoscopic (ICD-10-PCS; 2021-11-06 13:00)
DX: N99.89 Other postprocedural complications and disorders of genitourinary system (principal); N17.9 Acute kidney failure, unspecified; N39.0 Urinary tract infection, site not specified; G30.9 Alzheimer's disease, unspecified; F02.80 Dementia in other diseases classified elsewhere, unspecified severity, without behavioral disturbance, psychotic disturbance, mood disturbance, and anxiety; E78.5 Hyperlipidemia, unspecified; F41.8 Other specified anxiety disorders; N40.1 Benign prostatic hyperplasia with lower urinary tract symptoms; I34.0 Nonrheumatic mitral (valve) insufficiency; R33.8 Other retention of urine; R09.02 Hypoxemia; E11.51 Type 2 diabetes mellitus with diabetic peripheral angiopathy without gangrene; N32.89 Other specified disorders of bladder; B96.5 Pseudomonas (aeruginosa) (mallei) (pseudomallei) as the cause of diseases classified elsewhere; R13.10 Dysphagia, unspecified; N13.9 Obstructive and reflux uropathy, unspecified; I12.9 Hypertensive chronic kidney disease with stage 1 through stage 4 chronic kidney disease, or unspecified chronic kidney disease; E11.22 Type 2 diabetes mellitus with diabetic chronic kidney disease; N18.30 Chronic kidney disease, stage 3 unspecified; L89.152 Pressure ulcer of sacral region, stage 2; H40.9 Unspecified glaucoma; N31.9 Neuromuscular dysfunction of bladder, unspecified; Y83.8 Other surgical procedures as the cause of abnormal reaction of the patient, or of later complication, without mention of misadventure at the time of the procedure; Z87.11 Personal history of peptic ulcer disease; Z89.429 Acquired absence of other toe(s), unspecified side
CPT/HCPCS: 36415; 71045-TC-FY; 76775-TC; 76856-TC; 80048; 80053; 81003; 82550; 82962; 83605; 83735; 83880; 84484; 85025; 85610; 85730; 86850; 86900; 86901; 87040; 87086; 87186; 93005; 93010; 94760; 97116-GP; 97162-GP; 99285-25; C9803; U0003; U0005

== ENCOUNTER 2022-10-21 12:14 | Inpatient (IN) | payer OTHER ==
[2022-10-21 15:06] LABS: BASO % 0.3 % (0-2.0); EOS % 2.3 % (0-4.5); HEMATOCRIT 36.5 % (35.4-49); HEMOGLOBIN 11.8 GM/dL (11.7-16.9); LYMPH % 21.7 % (8-40); MCH 25.2 pg (25.7-33.7); MCHC 32.5 g/dl (32.0-35.9); MEAN CELL VOLUME 77.6 fl (80-96); MONO % 8.5 % (3.8-10.2); NEUT % 67.2 % (42.8-82.8); PLATELET COUNT 268 10^3/uL (134-434); RDW 15.9 % (11.9-15.9); WHITE BLOOD COUNT 11.3 K/mm3 (4.0-10.0)
[2022-10-21 15:29] LABS: INR 1.03 (0.83-1.09); PROTHROMBIN TIME (PATIENT) 11.8 SEC (9.7-13.0)
[2022-10-21 15:49] LABS: CALCIUM 9.2 mg/dL (8.5-10.1)
[2022-10-21 15:50] LABS: ALBUMIN 3.6 g/dl (3.4-5.0); BLOOD UREA NITROGEN 20.2 mg/dL (7-18)
[2022-10-21 15:53] LABS: CREATININE 1.4 mg/dL (0.55-1.3)
[2022-10-21 15:54] LABS: BILIRUBIN,TOTAL 0.3 mg/dL (0.2-1); TOT PROT 7.4 g/dl (6.4-8.2)
[2022-10-21] MEDS ORDERED: ACETAMINOPHEN 325 MG TABLET (FP) PO PRN (17:34)
[2022-10-21] MEDS ORDERED: PATIENT'S OWN MEDICATION (NON-FORMULARY) (Bimatoprost [Lumigan] 7.5 ML Drops) OU SCH (22:00)
[2022-10-21] MEDS ORDERED: QUEtiapine FUMARATE 100 MG TABLET (FP) PO SCH (22:00)
[2022-10-21] MEDS ORDERED: LATANOPROST 0.005% OPHTH SOLN 2.5ML BOTTLE OU SCH (22:00)
[2022-10-21] MEDS ORDERED: BRIMONIDINE TARTRATE 0.2% OPHTHALMIC 5 ML BOTTLE OU SCH (22:00)
[2022-10-21] MEDS ORDERED: PATIENT'S OWN MEDICATION (NON-FORMULARY) (Dorzolamide Hcl/Timolol Maleat [Cosopt Eye Drops OU SCH (22:00)
[2022-10-22] MEDS ORDERED: hydrALAZINE HCL 25 MG TABLET (FP) ONE (00:33)
[2022-10-22] MEDS ORDERED: GABAPENTIN 300 MG CAPSULE ONE (00:34)
[2022-10-22] MEDS ORDERED: QUEtiapine FUMARATE 100 MG TABLET (FP) ONE (00:34)
[2022-10-22] MEDS: GABAPENTIN 300 MG CAPSULE PO SCH ×3 (00:38→23:36)
[2022-10-22] MEDS: hydrALAZINE HCL 25 MG TABLET (FP) PO SCH ×4 (00:38→23:37)
[2022-10-22] MEDS: INSULIN SLIDING SCALE (NOVOLOG) 1 VIAL SQ SCH ×5 (00:57→23:37)
[2022-10-22] MEDS: ZINC OXIDE/PANTHENOL/VITAMIN E 56 GM TUBE TP SCH ×2 (02:04→11:32)
[2022-10-22] MEDS: MEMANTINE HCL 10 MG TABLET (FP) PO SCH ×3 (02:06→23:36)
[2022-10-22] MEDS: BRIMONIDINE TARTRATE 0.2% OPHTHALMIC 5 ML BOTTLE OU SCH ×3 (02:06→23:37)
[2022-10-22] MEDS: DORZOLAMIDE 2% HCL OPHTHALMIC SOLUTION 10 ML BOTTLE OU SCH ×3 (02:06→23:38)
[2022-10-22] MEDS: TIMOLOL 0.5% OPHTHALMIC SOL 5 ML BOTTLE OU SCH ×3 (02:07→23:38)
[2022-10-22 07:31] VITALS: BMI 27.8
[2022-10-22] MEDS ORDERED: BUPIVACAINE HCL/PF 0.5% (5MG/ML) 10 ML VIAL ONE (09:45)
[2022-10-22] MEDS ORDERED: DEXAMETHASONE SOD PHOSPHATE 4 MG/1 ML VIAL ONE (09:45)
[2022-10-22] MEDS ORDERED: LIDOCAINE HCL 1%, 10 MG/ML (20ML VIAL) ONE (09:45)
[2022-10-22] MEDS ORDERED: MIDAZOLAM HCL 2 MG/2 ML SINGLE DOSE VIAL ONE (09:54)
[2022-10-22] MEDS ORDERED: PROPOFOL 20 ML ONE (09:54)
[2022-10-22] MEDS ORDERED: NIFEdipine E.R. 90 MG TABLET PO SCH (10:00)
[2022-10-22] MEDS ORDERED: PATIENT'S OWN MEDICATION (NON-FORMULARY) (Losartan Potassium [Losartan Potassium] 100 MG T PO SCH (10:00)
[2022-10-22] MEDS ORDERED: DONEPEZIL HCL 10 MG TABLET (FP) PO SCH (10:00)
[2022-10-22] MEDS ORDERED: NIFEdipine E.R 60 MG TABLET PO SCH (10:00)
[2022-10-22] MEDS ORDERED: LOSARTAN POTASSIUM 50 MG TABLET PO SCH (10:00)
[2022-10-22] MEDS ORDERED: ceFAZolin 2 GRAM PREMIX BAG IVPB ONE (10:34)
[2022-10-22] MEDS ORDERED: ceFAZolin SODIUM 1 GM VIAL ONE (10:34)
[2022-10-22] MEDS ORDERED: LIDOCAINE HCL 1%, 10 MG/ML (20ML VIAL) INF ONE (10:35)
[2022-10-22] MEDS ORDERED: GENTAMICIN SO4 80 MG/2 ML VIAL ONE (10:35)
[2022-10-22] MEDS ORDERED: GENTAMICIN 80MG PREMIX BAG IVPB ONE (10:56)
[2022-10-22] MEDS ORDERED: ACETAMINOPHEN 325 MG TABLET (FP) PO PRN (11:23)
[2022-10-22 12:19] LABS: BASO % 0.6 % (0-2.0); HEMOGLOBIN 12.4 GM/dL (11.7-16.9); LYMPH % 20.8 % (8-40); MCH 25.2 pg (25.7-33.7); MCHC 32.6 g/dl (32.0-35.9); MEAN CELL VOLUME 77.2 fl (80-96); MEAN PLT VOLUME 7.9 fl (7.5-11.1); MONO % 7.9 % (3.8-10.2); NEUT % 67.7 % (42.8-82.8); PLATELET COUNT 253 10^3/uL (134-434); RBC 4.93 M/mm3 (4.00-5.60); RDW 15.7 % (11.9-15.9); WHITE BLOOD COUNT 10.2 K/mm3 (4.0-10.0)
[2022-10-22] MEDS: PIPERACILLIN/TAZOB 3.375 GM 3.375 GM in DEXTROSE 5%-WATER - 50 ML IVPB SCH ×2 (14:23→17:43)
[2022-10-22 15:21] LABS: CALCIUM 8.7 mg/dL (8.5-10.1)
[2022-10-22 15:22] LABS: ALBUMIN 3.4 g/dl (3.4-5.0); MAGNESIUM 2.3 mg/dL (1.8-2.4)
[2022-10-22 15:25] LABS: CREATININE 1.3 mg/dL (0.55-1.3); PHOSPHOROUS 3.4 mg/dL (2.5-4.9)
[2022-10-22 15:26] LABS: TOT PROT 7.1 g/dl (6.4-8.2)
[2022-10-22 15:27] LABS: BILIRUBIN,TOTAL 0.5 mg/dL (0.2-1)
[2022-10-22] MEDS: QUEtiapine FUMARATE 100 MG TABLET (FP) PO SCH (23:36)
[2022-10-22] MEDS: LATANOPROST 0.005% OPHTH SOLN 2.5ML BOTTLE OU SCH (23:38)
[2022-10-23] MEDS: PIPERACILLIN/TAZOB 3.375 GM 3.375 GM in DEXTROSE 5%-WATER - 50 ML IVPB SCH ×3 (01:50→17:37)
[2022-10-23] MEDS: hydrALAZINE HCL 25 MG TABLET (FP) PO SCH ×3 (06:38→21:51)
[2022-10-23] MEDS: sitaGLIPtin PHOSPHATE 50 MG TABLET PO SCH (06:38)
[2022-10-23] MEDS: INSULIN SLIDING SCALE (NOVOLOG) 1 VIAL SQ SCH ×4 (07:02→21:53)
[2022-10-23] MEDS: LOSARTAN POTASSIUM 50 MG TABLET PO SCH (10:21)
[2022-10-23] MEDS: GABAPENTIN 300 MG CAPSULE PO SCH ×2 (10:22→21:51)
[2022-10-23] MEDS: NIFEdipine E.R. 90 MG TABLET PO SCH (10:22)
[2022-10-23] MEDS: TIMOLOL 0.5% OPHTHALMIC SOL 5 ML BOTTLE OU SCH ×2 (10:22→21:54)
[2022-10-23] MEDS: MEMANTINE HCL 10 MG TABLET (FP) PO SCH ×2 (10:22→21:51)
[2022-10-23] MEDS: ZINC OXIDE/PANTHENOL/VITAMIN E 56 GM TUBE TP SCH (10:22)
[2022-10-23] MEDS: DORZOLAMIDE 2% HCL OPHTHALMIC SOLUTION 10 ML BOTTLE OU SCH ×2 (10:22→21:54)
[2022-10-23] MEDS: BRIMONIDINE TARTRATE 0.2% OPHTHALMIC 5 ML BOTTLE OU SCH ×2 (10:22→21:51)
[2022-10-23 10:27] LABS: BASO % 0.3 % (0-2.0); EOS % 3.6 % (0-4.5); HEMOGLOBIN 11.8 GM/dL (11.7-16.9); LYMPH % 21.3 % (8-40); MCH 25.3 pg (25.7-33.7); MCHC 32.8 g/dl (32.0-35.9); MEAN CELL VOLUME 77.1 fl (80-96); MEAN PLT VOLUME 8.1 fl (7.5-11.1); MONO % 9.6 % (3.8-10.2); NEUT % 65.2 % (42.8-82.8); PLATELET COUNT 240 10^3/uL (134-434); RBC 4.66 M/mm3 (4.00-5.60); RDW 15.8 % (11.9-15.9); WHITE BLOOD COUNT 8.9 K/mm3 (4.0-10.0)
[2022-10-23 11:32] LABS: CALCIUM 8.7 mg/dL (8.5-10.1)
[2022-10-23 11:33] LABS: BLOOD UREA NITROGEN 13.7 mg/dL (7-18)
[2022-10-23 11:36] LABS: CREATININE 1.3 mg/dL (0.55-1.3)
[2022-10-23] MEDS: DONEPEZIL HCL 10 MG TABLET (FP) PO SCH (21:51)
[2022-10-23] MEDS: INSULIN (LEVEMIR) 100 UNITS/ML UNITS SQ SCH (21:51)
[2022-10-23] MEDS: QUEtiapine FUMARATE 100 MG TABLET (FP) PO SCH (21:51)
[2022-10-23] MEDS: LATANOPROST 0.005% OPHTH SOLN 2.5ML BOTTLE OU SCH (21:54)
[2022-10-24] MEDS: PIPERACILLIN/TAZOB 3.375 GM 3.375 GM in DEXTROSE 5%-WATER - 50 ML IVPB SCH ×3 (02:49→18:09)
[2022-10-24] MEDS: sitaGLIPtin PHOSPHATE 50 MG TABLET PO SCH (06:15)
[2022-10-24] MEDS: hydrALAZINE HCL 25 MG TABLET (FP) PO SCH ×3 (06:15→21:26)
[2022-10-24] MEDS: INSULIN SLIDING SCALE (NOVOLOG) 1 VIAL SQ SCH ×4 (06:16→22:09)
[2022-10-24] MEDS: GABAPENTIN 300 MG CAPSULE PO SCH ×2 (09:37→21:26)
[2022-10-24] MEDS: MEMANTINE HCL 10 MG TABLET (FP) PO SCH ×2 (09:37→21:26)
[2022-10-24] MEDS: LOSARTAN POTASSIUM 50 MG TABLET PO SCH (09:37)
[2022-10-24] MEDS: TIMOLOL 0.5% OPHTHALMIC SOL 5 ML BOTTLE OU SCH ×2 (09:37→21:30)
[2022-10-24] MEDS: DORZOLAMIDE 2% HCL OPHTHALMIC SOLUTION 10 ML BOTTLE OU SCH ×2 (09:37→21:30)
[2022-10-24] MEDS: NIFEdipine E.R. 90 MG TABLET PO SCH (09:37)
[2022-10-24] MEDS: ZINC OXIDE/PANTHENOL/VITAMIN E 56 GM TUBE TP SCH (11:24)
[2022-10-24] MEDS: BRIMONIDINE TARTRATE 0.2% OPHTHALMIC 5 ML BOTTLE OU SCH ×2 (11:24→21:29)
[2022-10-24] MEDS: DONEPEZIL HCL 10 MG TABLET (FP) PO SCH (21:26)
[2022-10-24] MEDS: QUEtiapine FUMARATE 100 MG TABLET (FP) PO SCH (21:26)
[2022-10-24] MEDS: LATANOPROST 0.005% OPHTH SOLN 2.5ML BOTTLE OU SCH (21:31)
[2022-10-24] MEDS: INSULIN (LEVEMIR) 100 UNITS/ML UNITS SQ SCH (22:09)
[2022-10-25] MEDS: PIPERACILLIN/TAZOB 3.375 GM 3.375 GM in DEXTROSE 5%-WATER - 50 ML IVPB SCH ×3 (02:01→17:15)
[2022-10-25] MEDS: hydrALAZINE HCL 25 MG TABLET (FP) PO SCH ×3 (06:33→22:36)
[2022-10-25] MEDS: sitaGLIPtin PHOSPHATE 50 MG TABLET PO SCH (06:33)
[2022-10-25] MEDS: INSULIN SLIDING SCALE (NOVOLOG) 1 VIAL SQ SCH ×3 (06:34→16:34)
[2022-10-25] MEDS: LOSARTAN POTASSIUM 50 MG TABLET PO SCH (09:30)
[2022-10-25] MEDS: MEMANTINE HCL 10 MG TABLET (FP) PO SCH ×2 (09:31→22:36)
[2022-10-25] MEDS: GABAPENTIN 300 MG CAPSULE PO SCH ×2 (09:31→22:36)
[2022-10-25] MEDS: DORZOLAMIDE 2% HCL OPHTHALMIC SOLUTION 10 ML BOTTLE OU SCH ×2 (09:31→22:37)
[2022-10-25] MEDS: NIFEdipine E.R. 90 MG TABLET PO SCH (09:31)
[2022-10-25] MEDS: BRIMONIDINE TARTRATE 0.2% OPHTHALMIC 5 ML BOTTLE OU SCH ×2 (09:32→21:57)
[2022-10-25] MEDS: ZINC OXIDE/PANTHENOL/VITAMIN E 56 GM TUBE TP SCH (09:33)
[2022-10-25] MEDS: TIMOLOL 0.5% OPHTHALMIC SOL 5 ML BOTTLE OU SCH ×2 (09:34→22:37)
[2022-10-25 09:44] LABS: BASO % 0.4 % (0-2.0); EOS % 8.2 % (0-4.5); HEMATOCRIT 37.2 % (35.4-49); HEMOGLOBIN 12.2 GM/dL (11.7-16.9); LYMPH % 25.9 % (8-40); MCH 25.4 pg (25.7-33.7); MCHC 32.8 g/dl (32.0-35.9); MEAN CELL VOLUME 77.5 fl (80-96); MONO % 11.3 % (3.8-10.2); NEUT % 54.2 % (42.8-82.8); PLATELET COUNT 243 10^3/uL (134-434); RDW 15.9 % (11.9-15.9); WHITE BLOOD COUNT 9.8 K/mm3 (4.0-10.0)
[2022-10-25 10:17] LABS: BLOOD UREA NITROGEN 15.2 mg/dL (7-18)
[2022-10-25 10:20] LABS: CREATININE 1.4 mg/dL (0.55-1.3)
[2022-10-25] MEDS: QUEtiapine FUMARATE 100 MG TABLET (FP) PO SCH (22:36)
[2022-10-25] MEDS: DONEPEZIL HCL 10 MG TABLET (FP) PO SCH (22:36)
[2022-10-25] MEDS: LATANOPROST 0.005% OPHTH SOLN 2.5ML BOTTLE OU SCH (22:37)
[2022-10-26] MEDS: INSULIN (LEVEMIR) 100 UNITS/ML UNITS SQ SCH (00:24)
[2022-10-26] MEDS: INSULIN SLIDING SCALE (NOVOLOG) 1 VIAL SQ SCH ×3 (00:24→11:25)
[2022-10-26] MEDS: PIPERACILLIN/TAZOB 3.375 GM 3.375 GM in DEXTROSE 5%-WATER - 50 ML IVPB SCH ×2 (03:12→09:34)
[2022-10-26] MEDS: sitaGLIPtin PHOSPHATE 50 MG TABLET PO SCH (06:07)
[2022-10-26] MEDS: hydrALAZINE HCL 25 MG TABLET (FP) PO SCH ×2 (06:07→13:20)
[2022-10-26] MEDS: GABAPENTIN 300 MG CAPSULE PO SCH (09:34)
[2022-10-26] MEDS: LOSARTAN POTASSIUM 50 MG TABLET PO SCH (09:35)
[2022-10-26] MEDS: MEMANTINE HCL 10 MG TABLET (FP) PO SCH (09:35)
[2022-10-26] MEDS: NIFEdipine E.R. 90 MG TABLET PO SCH (09:39)
[2022-10-26] MEDS: BRIMONIDINE TARTRATE 0.2% OPHTHALMIC 5 ML BOTTLE OU SCH (09:41)
[2022-10-26] MEDS: ZINC OXIDE/PANTHENOL/VITAMIN E 56 GM TUBE TP SCH (09:41)
[2022-10-26] MEDS: TIMOLOL 0.5% OPHTHALMIC SOL 5 ML BOTTLE OU SCH (09:42)
[2022-10-26] MEDS: DORZOLAMIDE 2% HCL OPHTHALMIC SOLUTION 10 ML BOTTLE OU SCH (09:42)
[2022-10-26] MEDS ORDERED: INSULIN (NOVOLOG) ASPART 100 UNITS/ML 10ML VIAL ONE (11:23)
[2022-10-26 13:17] VITALS: BP 154/68; PULSE 68; RESP 20; TEMP 98.6
[2022-10-26] MEDS ORDERED: AMOX TR/POT CLAV 500MG/125MG TABLETS (FP) PO SCH (17:30)
== END 2022-10-26 16:18 | disposition home health service (06) | DRG 629 ==
LOC: JER 12:14 → JERBED 16:44 → J8W 10-22 05:30
PROVIDERS: ADMIT Internal Medicine; ATTEND Internal Medicine
PROC: 0QBP0ZZ Excision of Left Metatarsal, Open Approach (ICD-10-PCS; principal; 2022-10-22 10:00)
DX: E11.621 Type 2 diabetes mellitus with foot ulcer (principal); L03.116 Cellulitis of left lower limb; L97.528 Non-pressure chronic ulcer of other part of left foot with other specified severity; M89.372 Hypertrophy of bone, left ankle and foot; E11.51 Type 2 diabetes mellitus with diabetic peripheral angiopathy without gangrene; I10 Essential (primary) hypertension; N40.0 Benign prostatic hyperplasia without lower urinary tract symptoms; G30.9 Alzheimer's disease, unspecified; F02.80 Dementia in other diseases classified elsewhere, unspecified severity, without behavioral disturbance, psychotic disturbance, mood disturbance, and anxiety; F41.8 Other specified anxiety disorders; I34.0 Nonrheumatic mitral (valve) insufficiency; E78.5 Hyperlipidemia, unspecified; I25.10 Atherosclerotic heart disease of native coronary artery without angina pectoris; I44.0 Atrioventricular block, first degree; Z89.422 Acquired absence of other left toe(s)
CPT/HCPCS: 36415; 71045-TC-FY; 73630-TC-LT; 80048; 80053; 82962; 83735; 84100; 85025; 85610; 85651; 85730; 86140; 87070; 87076; 87186; 87205; 88304-TC; 93005; 93010; 94010; 94760; 97162-GP; 99285-25; C9803-CS; U0003; U0005